=== PATIENT | male | born 1955 | race Caucasian/White ===

== ENCOUNTER 2023-05-09 15:29 | Outpatient (OUT) | payer BC, SELFPAY ==
[2023-05-09 16:31] LABS: Anion Gap 11.9; BUN Creatinine Ratio 24.1; Carbon Dioxide 28.9 mmol/L (21.0-32.0); Chloride 103 mmol/L (98-107); Estimated GFR (African America 51 (>=60); Estimated GFR (Non-African Ame 42 (>=60); Glucose 131 mg/dL (74-106); Potassium 3.8 mmol/L (3.5-5.1); Sodium 140 mmol/L (136-145)
== END 2023-05-09 15:30 | disposition home or self-care (01) ==
LOC: LAB 15:36
PROVIDERS: PCP Family Medicine; Visit Provider Internal Medicine Interventional Cardiology
DX: R60.9 Edema, unspecified (principal)
CPT/HCPCS: 36415; 80048

== ENCOUNTER 2023-06-01 08:59 | Outpatient (OUT) | payer BC, SELFPAY ==
--- NOTE | 2023-06-01 09:56 | US_ITS ---
[address] [address] Patient Name: LISA JURADO MRN: [id number] date: 1955 Sex: M Assigned Patient Location: CARD Current Patient Location: CARD Accession/Order Number: [id number] Exam Date: 06/01/2023 10:00 Report Date: 06/01/2023 15:24 At the request of: EDISON HOPPER Procedure: US carotid duplex BI EXAMINATION: US carotid duplex BI HISTORY: Stenosis Of Left Carotid Artery I65.22 COMPARISON: No relevant comparison available. TECHNIQUE: Duplex Doppler ultrasound analysis of carotid and vertebral arteries. . Bilateral carotid arterial duplex examination was performed using B-mode, color flow and spectral analysis. Carotid stenosis is reported according to validated velocity parameters, similar to NASCET criteria. FINDINGS: RIGHT CAROTID ARTERY Mild atherosclerotic plaque. 44% reduction in the bulb Subclavian: PSV: 55.6 cm/s cm/s EDV: 7.0 cm/s cm/s CCA: Prox: PSV: 57.8 cm/s cm/s EDV: 10.6 cm/s cm/s Mid: PSV: 66.6 cm/s cm/s EDV: 13.8 cm/s cm/s Distal: PSV: 47.6 cm/s cm/s EDV: 8.4 cm/s cm/s BULB: PSV: 39.8 cm/s cm/s EDV: 7.5 cm/s cm/s ICA: Prox: PSV: 128.6 cm/s cm/s EDV: 39.7 cm/s cm/s Mid: PSV: 102.7 cm/s cm/s EDV: 28.4 cm/s cm/s Distal: PSV: 46.8 cm/s cm/s EDV: 18.8 cm/s cm/s ECA: PSV: 102.7 cm/s cm/s EDV: 5.8 cm/s cm/s VERTEBRAL: PSV: 31.0 cm/s cm/s EDV: 13.2 cm/s cm/s ICA/CCA ratio: PSV: 2.7 EDV: 4.7 LEFT CAROTID ARTERY Mild atherosclerotic plaque. 60% area reduction in the proximal ICA Subclavian: PSV: 94.3 cm/s cm/s EDV: 7.9 cm/s CCA: Prox: PSV: 62.0 cm/s cm/s EDV: 10.2 cm/s Mid: PSV: 49.0 cm/s cm/s EDV: 15.4 cm/s Distal: PSV: 36.0 cm/s cm/s EDV: 6.8 cm/s BULB: PSV: 38.9 cm/s cm/s EDV: 11.1 cm/s ICA: Prox: PSV: 123.7 cm/s cm/s EDV: 41.3 cm/s Mid: PSV: 68.1 cm/s cm/s EDV: 16.3 cm/s Distal: PSV: 40.2 cm/s cm/s EDV: 14.9 cm/s ECA: PSV: 60.0 cm/s cm/s EDV: 6.2 cm/s VERTEBRAL: PSV: 39.1 cm/s cm/s EDV: 12.8 cm/s ICA/CCA ratio: PSV: 3.4 EDV: 6.1 US/US carotid duplex BI IMPRESSION: 0-49% flow stenosis right internal carotid artery 60% area reduction measured in the proximal left ICA Spectral Doppler US Thresholds (Reference: Mono EG, et al. Radiology 2000; 214:247-252) Stenosis (%) PSV (cm/sec) VICA/VCCA 0-49 <150 <2.5 50-69 150-225 2.5-4.0 >70 >225 >4.0 Electronically authenticated by: IFEANYI FREY Date: 06/01/2023 15:24
--- NOTE | 2023-06-01 10:57 | CA_ITS ---
Patient Name: LISA JURADO MR#: [id number] : 1955 Exam Date: 06/01/2023 Ordering Doctor: EDISON HOPPER [facility] ECHOCARDIOGRAM REPORT PROCEDURE: CARDIO PULMONARY ECHOCARDIO M/2D COMP INDICATIONS: Syncope and collapse, coronary artery disease, CABGx6, [place], hypertension, diabetes COMPARISON: None. DESCRIPTION: COMPLETE ECHOCARDIOGRAM Real-time transthoracic echocardiography with 2D, M-mode, spectral and color flow Doppler performed. QUALITY: Technical quality was adequate. LEFT VENTRICLE: Normal chamber size. Thickened septal wall. LV EF: Global left ventricular systolic function is difficult to assess but appears preserved; visually estimated ejection fraction is 55 to 60%. DIASTOLIC: Normal diastolic function. ATRIAL SEPTUM: Visually appears intact. LEFT ATRIUM: Moderate dilatation. RIGHT ATRIUM: Mild dilatation. RIGHT VENTRICLE: Normal chamber size. Normal right ventricular systolic function. TRICUSPID VALVE: Normal mobility and thickness. Mild regurgitation. Doppler studies reveal moderately (45-60) elevated right sided pressures. RVSP 46 mmHg MITRAL VALVE: Mildly thickened with normal mobility. No evidence of mitral valve stenosis. Trivial mitral regurgitation. AORTIC VALVE: Normal trileaflet appearance. Moderately calcified aortic valve. No evidence of aortic valve stenosis. No aortic regurgitation. AORTIC ROOT: Normal diameter and appearance. PULMONIC VALVE: Normal thickness and mobility. No stenosis. Mild regurgitation. PERICARDIUM: No evidence of pericardial effusion. IVC: IVC is dilated (2.6 cm) with no collapse. CONCLUSION: 1. Normal left ventricular systolic function is difficult to assess but appears preserved; visually estimated ejection fraction is 55 to 60% 2. The right ventricle is normal in size and systolic function 3. Biatrial enlargement 4. Normal diastolic function 5. Mild tricuspid regurgitation; moderately elevated right ventricular systolic pressure 6. Mild pulmonic regurgitation Adult Echocardiography Procedure Report Left Ventricle LVEDD (3.7 - 5.6 cm): 5.42 cm LVESD (2.2 - 4.0 cm): 3.07 cm LVIVS thickness (0.6 - 1.2 cm): 1.68 cm LVPW thickness (0.5 - 1.0 cm): 0.94 cm e': 0.11 m/s E - e': 4.15 LVOT Max Gradient: 2.23 mm[Hg], 2.15 mm[Hg] LVOT Area (cm2): 0.73 m/s, 0.75 m/s Peak Velocity (LVOT): 0.73 m/s, 0.75 m/s Mean Velocity (LVOT): 0.51 m/s LVOT Diameter 2.58 cm Left Atrium LA Volume Index (2D A2C): 49.37 ml/m2 Left Atrium Systolic Dimension: 4.34 cm Mitral Valve MV E to A Ratio: 0.80 Mitral Valve A-Wave Peak Velocity: 0.59 m/s Mitral Valve E-Wave Peak Velocity: 0.48 m/s Right Ventricle Aorta AO Root Diam: 3.70 cm Ascending Ao Diam: 3.29 cm Aortic Valve AoV Area (Peak Josh): 3.21 cm2, 3.29 cm2, 3.28 cm2, 3.36 cm2 AoV Area (VTI): 4.01 cm2, 4.34 cm2 Peak Velocity(Antegrade Flow): 1.16 m/s, 1.19 m/s, 1.22 m/s Peak Gradient(Antegrade Flow): 5.42 mm[Hg], 5.69 mm[Hg], 5.93 mm[Hg] Mean Velocity(Antegrade Flow): 0.89 m/s, 0.80 m/s, 0.95 m/s Mean Gradient(Antegrade Flow): 3.41 mm[Hg], 3.07 mm[Hg], 3.82 mm[Hg] Velocity Time Integral: 20.72 cm, 22.83 cm, 23.74 cm Tricuspid Valve Peak Velocity (Regurgitant Flow): 2.59 m/s, 2.80 m/s Pulmonic Valve Peak Velocity: 0.76 m/s Peak Gradient: 2.90 mm[Hg], 1.79 mm[Hg] Right Atrium Right Atrium Systolic Pressure: 61.07 ml, 61.07 ml Dictated by: Judi Wilson M.D. on 06/02/2023 at 14:35 Approved by: Judi Wilson M.D. on 06/02/2023 at 14:39
== END 2023-06-01 09:00 | disposition home or self-care (01) ==
LOC: CARD 08:59
PROVIDERS: PCP Family Medicine; Visit Provider Nurse Practitioner Family
DX: I65.22 Occlusion and stenosis of left carotid artery (principal); R55 Syncope and collapse; I25.10 Atherosclerotic heart disease of native coronary artery without angina pectoris
CPT/HCPCS: 93306; 93880

== ENCOUNTER 2023-06-19 11:08 | Outpatient (OUT) | payer BC, SELFPAY ==
[2023-06-19 11:49] LABS: Chol HDL Ratio 3.8; Cholesterol 163 mg/dL (<=200); HDL Cholesterol 43 mg/dL (40-60); Triglycerides 219 mg/dL (<=150); VLDL CHOLESTEROL 43.8 mg/dL
== END 2023-06-19 11:09 | disposition home or self-care (01) ==
LOC: LAB 11:09
PROVIDERS: PCP Family Medicine; Visit Provider Nurse Practitioner Family
DX: E78.5 Hyperlipidemia, unspecified (principal)
CPT/HCPCS: 36415; 80061

== ENCOUNTER 2024-02-12 10:30 | Outpatient (OUT) | payer BC, SELFPAY ==
[2024-02-12 10:47] LABS: Basophils Absolute Auto 0.1 10^3/uL (0.0-0.1); Eosinophils Absolute Auto 0.2 10^3/uL (0.0-0.7); Hematocrit 44.5 % (42.0-54.0); Hemoglobin 14.8 g/dL (14.0-18.0); Immature Granulocytes Abs Auto 0.03 10^3/uL (0.00-0.03); Immature Granulocytes Pct Auto 0.4 % (0.0-0.5); Lymphocytes Absolute Auto 1.5 10^3/uL (1.2-3.8); Lymphocytes Percent Auto 17.7 % (20.5-60.0); Mean Corpuscular HGB Conc 33.3 g/dL (29.9-35.2); Mean Corpuscular Hemoglobin 30.5 pg (25.9-34.0); Mean Corpuscular Volume 91.8 fL (80.0-94.0); Mean Platelet Volume 11.2 fL (9.5-13.5); Monocytes Absolute Auto 0.9 10^3/uL (0.3-0.8); Neutrophils Absolute Auto 5.6 10^3/uL (1.4-6.5); Neutrophils Percent Auto 67.9 % (43.0-75.0); Platelet Count 208 10^3/uL (150-450); Red Blood Count 4.85 10^6/uL (4.70-6.10); Red Cell Distribution Width 14.5 % (11.0-15.0); White Blood Count 8.2 10^3/uL (4.0-11.0)
--- OUTSIDE RECORDS SUMMARY | 2024-02-12 10:54 | XMS_ITS | CCD ---
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 Name Role Phone PHYSICIAN, DEFAULT Unavailable Unavailable PHYSICIAN, DEFAULT Unavailable Unavailable NAHUN JACKSON Unavailable Unavailable [place], Surya Jo Unavailable Unavailable Unavailable FIORELLA BRONSON Consulting Unavailable REINECK, DR AMENA Enciso Admitting Unavailabl e REINECK, DR AMENA Enciso Attending Unavailabl e PRO, DR PALMER Primary Care Unavailable NEFCY, CARLOS ALBERTO Consulting Unavailable PRO, DR PALMER Admitting Unavailable PRO, DR PALMER Attending Unavailable PRO, DR PALMER Consulting Unavailable PRO, DR PALMER Primary Care Unavailable ELTAHAWY, DR GAYTAN Consulting Unavailable ELTAHAWY, DR GAYTAN Admitting Unavailable ELTAHAWY, DR GAYTAN Attending Unavailable PRO, DR PALMER Primary Care Unavailable ELTAHAWY, DR GAYTAN Consulting Unavailable ELTAHAWY, DR GAYTAN Admitting Unavailable ELTAHAWY, DR GAYTAN Attending Unavailable PRO, DR PALMER Primary Care Unavailable ELTAHAWY, DR GAYTAN Attending Unavailable ELTAHAWY, DR GAYTAN Consulting Unavailable ELTAHAWY, DR GAYTAN Admitting Unavailable PRO, DR PALMER Primary Care Unavailable PRO, DR PALMER Primary Care Unavailable MISC, DR COHEN Admitting Unavailable MISC, DR COHEN Attending Unavailable MISC, DR COHEN Consulting Unavailable PRO, DR PALMER Primary Care Unavailable MISC, DR COHEN Admitting Unavailable MISC, DR COHEN Attending Unavailable MISC, DR COHEN Consulting Unavailable Leidy Jamison Unavailable Surya Mast MD Unavailable Surya Mast MD Primary Care Provider [phone] MD Surya Mast Primary Care Provider MD Jagdeep Stiles II Attending Provider MD Surya Mast Primary Care Provider [phone] MD Jagdeep Stiles II Attending Provider [phone] MD Davide Ocampo Attending Provider [phone] Davide Ocampo Admitting Unavailable Davide Ocampo Attending Unavailable Surya Mast Primary Care Unavailable Jagdeep Stiles II Admitting UnavailJagdeep Gong II Attending Unavailabl e Surya Mast Primary Care Unavailable IFEANYI JUSTICE Attending Unavailable PANDA, JASON Jo Referring Unavailable PRO, SURYA Jo Attending Unavailable PANDA, JASON Jo Attending Unavailable DAVIDE SUN Attending Unavailable SURYA MAST Referring Unavailable DAVIDE SUN Attending Unavailable PRO, SURYA Jo Attending Unavailable PANDA, JASON M Attending Unavailable PANDA, JASON M Attending Unavailable PANDA, JASON M Attending Unavailable PANDA, JASON M Attending Unavailable PANDA, JASON M Attending Unavailable PANDA, JASON M Attending Unavailable PANDA, JASON M Attending Unavailable PANDA, JASON M Attending Unavailable PANDA, JASON M Attending Unavailable IFEANYI JUSTICE Attending Unavailable PANDA, JASON M Referring Unavailable JUDI WILSON Attending Unavailable EDSION HOPPER Attending Unavailable JUDI WILSON Attending Unavailable Medications Current Medications Medication Drug Class(es) Dates Sig (Normalized) Sig (Original) [id number] actuat albuterol 0.09 mg/actuat metered dose inhaler (2 sources) beta2-Adrenergic Agonist Start: 06-14-2017 take 2 puff(s) by inhalation every four hours as needed Albuterol Sulfate HFA 108 (90 Base) MCG/ACT 2 puffs as needed Inhalation every 4 hrs May, Active amLODIPine 10 mg oral tablet (2 sources) Dihydropyridine Calcium Channel Yenni take 1 tablet by mouth every twenty-four hours amLODIPine Besylate 10 MG 1 tablet Orally Once a day Active amoxicillin 875 mg / clavulanate 125 mg oral tablet (2 sources) Penicillin-class Antibacterial Start: 08-29-2023 End: 09-08-2023 take 1 tablet by mouth in the morning amoxicillin-clav ulanate (Augmentin) 875-125 MG tablet Indications: Bronchitis Take 1 tablet (875 mg) by mouth in the morning and 1 tablet (875 mg) before bedtime. Do all this for 10 days. 20 tablet 0 08/29/2023 09/08/2023 Active Aspir-81 81 MG (2 sources) take 1 tablet by mouth once daily Aspir-81 81 MG 1 tablet Orally Once a day Active aspirin 81 mg delayed release oral tablet (10 sources) Platelet Aggregation Inhibitor, Nonsteroidal Anti-inflammatory Drug Start: 08-31-2023 take 81 mg by mouth once daily Aspirin Active 81 MG PO Daily August 31, 2023 1:00am ASPIRIN 81 MG ch ewable tablet Oral 0 Active take 1 tablet by mouth once rafael y Aspirin EC 81 MG Oral Tablet Delayed Release TAKE 1 TABLET DAILY DIRECTED. Quantity: 0 Refills: 0 Ordered: 28-May-2021 DO Active atorvastatin 80 mg oral tablet (12 sources) HMG-CoA Reductase Inhibitor Start: 08-31-2023 take 80 mg by mouth once daily Atorvastatin Active 80 MG PO Daily August 31, 2023 1:00am Start: 07-31-2023 take 1 tablet by nadja th in the morning atorvastatin (Lipitor) 80 MG tablet Indications: Atherosclerosis of nez perce coronary artery with angina pectoris, unspecified whether nez perce or transplanted heart (CMS/[facility]) TAKE 1 TABLET BY MOUTH IN THE MORNING 100 tablet 3 07/31/2023 Active Start: 10-02-2019 take 1 tablet by nadja th once daily Atorvastatin Calcium 80 MG Oral Tablet TAKE 1 TABLET DAILY. Quantity: 0 Refills: 0 Ordered: 20-Jun-2020 DO Start : 02-Oct-2019 Active Atorvastatin Jeferson cium Active carvedilol 25 mg oral tablet (6 sources) alpha-Adrenergic Yenni, beta-Adrenergic Yenni Start: 08-31-2023 take 25 mg by mouth twice daily at mealtime Carvedilol Active 25 MG PO Twice daily August 31, 2023 1:00am must administer with a meal/food take 1 tablet by mouth in the mo rning carvedilol (Coreg) 25 MG tablet Take 25 mg by mouth in the morning and 25 mg before bedtime. 0 Active cloNIDine hydrochloride 0.2 mg oral tablet (10 sources) Central alpha-2 Adrenergic Agonist Start: 08-31-2023 take 0.2 mg by mouth twice daily Clonidine Hcl Active 0.2 MG PO Twice daily August 31, 2023 1:00am Start: 08-31-2023 take 0.2 mg by mouth once daily at bedtime Clonidine Hcl Active 0.2 MG PO Daily at bedtime August 31, 2023 12:00am Start: 02-16-2023 End: 02-11-2024 take 1.5 tablets by mouth in the morning cloNIDine (Catapres) 0.2 MG tablet Indications: Hypertension secondary to other renal disorders (CMS/HCC) Take 1.5 tablets (0.3 mg) by mouth in the morning and 1.5 tablets (0.3 mg) before bedtime. 270 tablet 3 02/16/2023 02/11/2024 Active Start: 06-18-2021 take 1 tablet by nadja th once daily cloNIDine HCl - 0.1 MG Oral Tablet Take 1 tablet daily Quantity: 90 Refills: 3 Ordered: 18-Jun-2021 Juanito Peterson MD Start : 18-Jun-2021 Active dose decreased; stop clonidoine .2 mg Start: 05-25-2021 take 1 tablet by nadja th once daily cloNIDine HCl - 0.2 MG Oral Tablet TAKE 1 TABLET DAILY. Quantity: 0 Refills: 0 Ordered: 26-May-2021 DO Start : 25-May-2021 Active dapagliflozin 10 mg oral tablet (10 sources) Sodium-Glucose Cotransporter 2 Inhibitor Start: 08-31-2023 take 1 tablet by mouth once daily Dapagliflozin Propanediol (Farxiga) 10 mg tablet Active 10 MG PO Daily August 31, 2023 1:00am Start: 03-10-2023 take 1 tablet by nadja th in the morning dapagliflozin (Farxiga) 10 MG Indications: Coronary artery disease without angina pectoris, unspecified vessel or lesion type, unspecified whether nez perce or transplanted heart (CMS/HCC) Take 1 tablet (10 mg) by mouth in the morning. 100 tablet 3 03/10/2023 Active Start: 08-15-2019 take 1 tablet by nadja th once daily in the morning Farxiga 10 MG Oral Tablet TAKE 1 TABLET BY MOUTH EVERY MORNING Quantity: 0 Refills: 0 Ordered: 20-Jun-2020 DO Start : 15-Aug-2019 Active diclofenac sodium 0.01 mg/mg topical gel (2 sources) Nonsteroidal Anti-inflammatory Drug Start: 08-31-2023 Diclofenac Sodium Active 2 GM TOPICAL as directed 08 15August 31, 2023 1:00am doxycycline monohydrate 100 mg oral capsule (2 sources) Tetracycline-class Drug Start: 06-14-2017 take 1 capsule by mouth every twelve hours Doxycycline Monohydrate 100 MG 1 capsule Orally every 12 hrs for 7 days May, Active fluticasone propionate 0.05 mg/actuat metered dose nasal spray (2 sources) Corticosteroid Start: 06-14-2017 take 1 spray(s) nasal route once daily Fluticasone Propionate 50 MCG/ACT 1 spray in each nostril Nasally Once a day for 21 days May, Active furosemide 40 mg oral tablet (3 sources) Loop Diuretic Start: 04-19-2023 End: 04-18-2024 furosemide (Lasix) 40 MG tablet Take 20 mg by mouth in the morning. 0 04/19/2023 08/29/2023 Discontinued (Other) 24 hr isosorbide mononitrate 60 mg extended release oral tablet (12 sources) Nitrate Vasodilator Start: 08-31-2023 take 60 mg by mouth once daily Isosorbide Mononitrate Active 60 MG PO Daily August 31, 2023 1:00am Start: 04-19-2023 take 1 tablet by nadja th once daily in the morning isosorbide mononitrate ER (Imdur) 60 MG 24 hr tablet Indications: Secondary hypertension (CMS/HCC) TAKE 1 TABLET BY MOUTH ONCE DAILY IN THE MORNING 100 tablet 3 04/19/2023 Active Start: 09-10-2019 take 1 tablet by nadja th once daily Isosorbide Mononitrate ER 60 MG Oral Tablet Extended Release 24 Hour TAKE 1 TABLET DAILY DIRECTED. Quantity: 0 Refills: 0 Ordered: 17-Jun-2020 DO Start : 10-Sep-2019 Active Isosorbide [place] itrate ER Active lisinopril 40 mg oral tablet (12 sources) Angiotensin Converting Enzyme Inhibitor Start: 08-31-2023 take 40 mg by mouth once daily Lisinopril Active 40 MG PO Daily August 31, 2023 1:00am Start: 02-15-2023 take 1 tablet by nadja th once daily lisinopril 40 MG tablet Indications: Primary hypertension (CMS/HCC) Take 1 tablet by mouth once daily 90 tablet 3 02/15/2023 Active Start: 10-02-2019 take 1 tablet by nadja th once daily Lisinopril 40 MG Oral Tablet TAKE 1 TABLET DAILY. Quantity: 0 Refills: 0 Ordered: 20-Jun-2020 DO Start : 02-Oct-2019 Active Lisinopril Activ e methylPREDNISolone (2 sources) Corticosteroid Start: 08-29-2023 End: 09-05-2023 methylPREDNISolone (Medrol Dospak) 4 MG tablets Indications: Bronchitis Follow schedule on package instructions 21 tablet 0 08/29/2023 09/05/2023 Active semaglutide 3 mg oral tablet (3 sources) take 1 tablet by mouth before mealtime semaglutide (Rybelsus) 3 MG tablet Take 3 mg by mouth in the morning. Take before meals. 0 Active Semaglutide (3 sources) Start: 08-31-2023 take 3 mg by mouth once daily Semaglutide Active 3 MG PO Daily August 31, 2023 1:00am Start: 08-31-2023 take 3 mg by mouth once daily Semaglutide Active 3 MG PO Daily August 31, 2023 12:00am spironolactone 25 mg oral tablet (10 sources) Aldosterone Antagonist Start: 08-31-2023 take 25 mg by mouth once daily Spironolactone Active 25 MG PO Daily August 31, 2023 1:00am Start: 05-28-2021 take 1 tablet by nadja th once daily Spironolactone 25 MG Oral Tablet TAKE 1 TABLET DAILY. Quantity: 90 Refills: 3 Ordered: 28-May-2021 Juanito Peterson MD Start : 28-May-2021 Active new terazosin 2 mg oral capsule (10 sources) alpha-Adrenergic Yenni Start: 08-31-2023 take 2 mg by mouth once daily Terazosin Active 2 MG PO Daily August 31, 2023 1:00am Start: 02-16-2023 End: 02-11-2024 take 3 capsules by mouth at bedtime terazosin (Hytrin) 2 MG capsule Indications: Benign prostatic hyperplasia without lower urinary tract symptoms Take 3 capsules (6 mg) by mouth at bedtime. 270 capsule 3 02/16/2023 02/11/2024 Active Start: 12-16-2019 take 1 capsule by mo [facility] once daily at bedtime Terazosin HCl - 1 MG Oral Capsule TAKE 1 CAPSULE AT BEDTIME NIGHTLY. Quantity: 0 Refills: 0 Ordered: 17-Jul-2020 DO Start : 16-Dec-2019 Active Completed/Discontinued Medications Medication Drug Class(es) Dates Sig (Normalized) Sig (Original) Augmentin Tablets 875 MG (2 sources) Start: 09-15-2014 Augmentin Tablets 875 MG Take as directed By Mouth bid for 10 days Sep, Not-Taking/PRN clopidogrel 75 mg oral tablet (6 sources) P2Y12 Platelet Inhibitor Start: 02-21-2020 take 1 tablet by mouth once daily Clopidogrel Bisulfate 75 MG Oral Tablet TAKE 1 TABLET DAILY. Quantity: 90 Refills: 3 Ordered: 20-Jun-2020 DO Start : 21-Feb-2020 Active Clopidogrel Bisu lfate Active hydroCHLOROthiazide 50 mg oral tablet (4 sources) Thiazide Diuretic Start: 05-25-2021 take 1 tablet by mouth once daily hydroCHLOROthiazide 50 MG Oral Tablet TAKE 1 TABLET DAILY. Quantity: 0 Refills: 0 Ordered: 26-May-2021 DO Start : 25-May-2021 Active ibuprofen 800 mg oral tablet (2 sources) Nonsteroidal Anti-inflammator y Drug take 1 tablet by mouth every eight hours Ibuprofen 800 MG 1 tablet Orally Three times a day Not-Taking/PRN krill oil (2 sources) Krill Oil Orally Not-Taking/PRN labetalol hydrochloride 300 mg oral tablet (6 sources) beta-Adrenergic Yenni Start: 10-02-2019 take 1 tablet by mouth once daily Labetalol HCl - 300 MG Oral Tablet TAKE 1 TABLET EVERY 12 HOURS DAILY. Quantity: 0 Refills: 0 Ordered: 20-Jun-2020 DO Start : 02-Oct-2019 Active Labetalol HCl Ac tive metFORMIN hydrochloride 1000 mg oral tablet (9 sources) Biguanide Start: 05-11-2021 take 1 tablet by mouth once daily metFORMIN HCl - 1000 MG Oral Tablet TAKE 1 TABLET EVERY 12 HOURS DAILY. Quantity: 0 Refills: 0 Ordered: 13-May-2021 DO Start : 11-May-2021 Active End: 08-29-2023 metFORMIN (Glucophage) 500 M G tablet every 12 (twelve) hours. 0 08/29/2023 Discontinued (Ineffective) metFORMIN HCl Ac tive metoprolol tartrate 100 mg oral tablet (2 sources) beta-Adrenergic Yenni Metoprolol Succinate 100 MG Orally Not-Taking/PRN predniSONE 20 mg oral tablet (2 sources) Start: 017 predniSONE 20 MG 1 tablet twice daily x 2 days then 1 tablet daily x 2 days Orally as directed for 4 days May, Not-Taking/PRN ProAir HFA 108 (90 Base) MCG/ACT (2 sources) Start: 015 take 2 puff(s) by inhalation every six hours as needed ProAir HFA 108 (90 Base) MCG/ACT 2 puffs as needed Inhalation every 6 hrs, if needed for 30 day(s) Sep, Not-Taking/PRN SITagliptin 100 mg oral tablet (6 sources) Dipeptidyl Peptidase 4 Inhibitor Start: 020 take 1 tablet by mouth once daily Januvia 100 MG Oral Tablet TAKE 1 TABLET ONCE DAILY. Quantity: 0 Refills: 0 Ordered: 20-Jun-2020 DO Start : 16-Dec-2019 Active Januvia Active Problems Active Problems Problem Classification Problem Date Documented Da te Episodic/Chronic Acute myocardial infarction (3 sources) Myocardial infarction; Translations: [Non-ST elevation (NSTEMI) myocardial infarction] Onset: 6 02-16-2023 Chronic Chronic kidney disease (4 sources) Chronic kidney disease; Translations: [CHRONIC KIDNEY DISEASE STAGE 3B] Onset: 2 Chronic obstructive pulmonary disease and bronchiectasis (4 sources) Bronchitis; Translations: [Bronchitis] 08-29-2023 Episodic Complication of device; implant or graft (3 sources) 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; Translations: [Atherosclerosis of coronary artery bypass graft(s) without angina pectoris] Onset: 3 02-14-2023 Chronic Coronary atherosclerosis and other heart disease (10 sources) Coronary arteriosclerosis; Translations: [Coronary atherosclerosis of unspecified type of vessel, nez perce or graft] Onset: 2 02-14-2023 Chronic Diabetes mellitus with complications (6 sources) Disorder of kidney due to diabetes mellitus; Translations: [Type 2 diabetes mellitus with diabetic nephropathy] Onset: 3 02-14-2023 Chronic Diabetes mellitus without complication (11 sources) Type 2 diabetes mellitus; Translations: [Diabetes mellitus without mention of complication, type II or unspecified type, not stated as uncontrolled] Onset: 2 02-14-2023 Chronic Disorders of lipid metabolism (7 sources) Hyperlipidemia; Translations: [Other and unspecified hyperlipidemia] Onset: 6 02-16-2023 Chronic Esophageal disorders (3 sources) Gastroesophageal reflux disease without esophagitis; Translations: [Gastro-esophageal reflux disease without esophagitis] Onset: 6 02-16-2023 Chronic Essential hypertension (13 sources) Benign essential hypertension; Translations: [Benign essential hypertension] Onset: 2 Chronic Hyperplasia of prostate (3 sources) Benign prostatic hyperplasia; Translations: [Benign prostatic hyperplasia without lower urinary tract symptoms] Onset: 3 02-14-2023 Chronic Hypertension with complications and secondary hypertension (5 sources) Renal hypertension; Translations: [Hypertension secondary to other renal disorders] Onset: 3 02-16-2023 Chronic Influenza (4 sources) Influenza due to other identified influenza virus with other respiratory manifestations; Translations: [Influenza] Onset: 4 Episodic Occlusion or stenosis of precerebral arteries (2 sources) Occlusion and stenosis of left carotid artery; Translations: [Occlusion and stenosis of left carotid artery] Onset: 3 Chronic Open wounds of head; neck; and trunk (3 sources) Laceration of mouth; Translations: [Laceration without foreign body of oral cavity, initial encounter] 06-28-2023 Episodic Osteoarthritis (9 sources) Primary gonarthrosis, bilateral; Translations: [Bilateral primary osteoarthritis of knee] Onset: 6 02-16-2023 Chronic Other circulatory disease (3 sources) Elevated blood pressure; Translations: [Elevated blood-pressure reading, without diagnosis of hypertension] 06-28-2023 Episodic Other gastrointestinal disorders (1 source) Other fecal abnormalities; Translations: [Other fecal abnormalities] Onset: 4 Episodic Other infections; including parasitic (3 sources) Late effects of other and unspecified infectious and parasitic diseases; 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] Onset: 3 02-14-2023 Chronic Other infections; including parasitic (3 sources) Sequelae of infectious disease; Translations: [Sequelae of other specified infectious and parasitic diseases] Onset: 2 02-16-2023 Chronic Other lower respiratory disease (2 sources) Cough; Translations: [Cough] Episodic Other lower respiratory disease (2 sources) Dyspnea; Translations: [Dyspnea] Episodic Other non-traumatic joint disorders (3 sources) Pain in right knee; Translations: [Pain in joint, lower leg] 08-31-2023 Episodic Other nutritional; endocrine; and metabolic disorders (4 sources) Obesity; Translations: [Obesity, unspecified] Chronic Other nutritional; endocrine; and metabolic disorders (3 sources) Hypomagnesemia; Translations: [Hypomagnesemia] Onset: 3 02-14-2023 Chronic Otitis media and related conditions (2 sources) Non-suppurative otitis media; Translations: [Unspecified nonsuppurative otitis media, left ear] 08-29-2023 Episodic Screening and history of mental health and substance abuse codes (4 sources) Ex-smoker; Translations: [Personal history of tobacco use] Episodic Comment on above: Quit 43 years ago; Skull and face fractures (3 sources) Fracture of maxilla; Translations: [Maxillary fracture, unspecified side, initial encounter for closed fracture] 06-28-2023 Episodic Unclassified (3 sources) CHRN KIDNEY DISEASE STG 3 UNSP; Translations: [CHRN KIDNEY DISEASE STG 3 UNSP] Onset: 3 Unclassified (1 source) Pain in right knee; Translations: [Pain in right knee] Onset: 4 Unclassified (1 source) Resistant hypertension; Translations: [Resistant hypertension] Onset: 2 Past or Other Problems Problem Classification Problem Date Documented Da te Episodic/Chronic Nonspecific chest pain (5 sources) Chest pain, unspecified; Translations: [CHEST PAIN UNSPECIFIED] Onset: 01-31-2022 Episodic Other aftercare (1 source) 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; Translations: [OTH K9 HANDLER CURRENT DRUG THERAPY] Onset: 01-31-2022 Episodic Other aftercare (1 source) long term (current) use of aspirin; Translations: [LONG-TERM CURRENT USE OF ASPIRIN] Onset: 01-31-2022 Episodic Other connective tissue disease (3 sources) Muscle weakness; Translations: [Muscle weakness (generalized)] Onset: 06-08-2016 02-16-2023 Episodic Other injuries and conditions due to external causes (1 source) Underdosing of loop [high-ceiling] diuretics, initial encounter; Translations: [UNDERDOS LOOP HI-CEIL DIURETIC INIT] Onset: 01-31-2022 Episodic Other injuries and conditions due to external causes (1 source) Underdosing of coronary vasodilators, initial encounter; Translations: [UNDRDOS COR VASODILATORS INIT ENC] Onset: 01-31-2022 Episodic Other non-traumatic joint disorders (10 sources) Pain in left knee; Translations: [Left knee pain] Onset: 08-31-2023 08-28-2023 Episodic Residual codes; unclassified (1 source) Patient's intentional underdosing of medication regimen for other reason; Translations: [PT INTENT UNDERDOS MED OTH REASON] Onset: 01-31-2022 Episodic Syncope (2 sources) Syncope and collapse; Translations: [Syncope and collapse] Onset: 05-10-2023 Episodic Unclassified (1 source) CHRN KIDNEY DISEASE STG 3 UNSP; Translations: [CHRN KIDNEY DISEASE STG 3 UNSP] Onset: 09-08-2022 Unclassified (1 source) Contact with and (suspected) exposure to covid-19 Z20.822 Unclassified (1 source) Resistant hypertension; Translations: [Resistant hypertension] Onset: 04-19-2023 Results Test Name Value Interpretation Reference Range Facility Office Visiton 02-01-2024 Follow-up visit [id number] Viri [address]ado rd L Sr. 1955 M Date Provider Department Center 02/01/2024 [facility] Family History Problem Relation Age of Onset Coronary artery disease Mother Coronary artery disease Father Coronary artery disease Brother ALS Brother Stroke Brother Family Status - Relation Status Age at Mother Father Brother Level of Service:15786 [place] OFFICE/OUTPATIENT ESTABLISHED MOD MDM 30 MIN Normal [facility] Glucose Glucometer (BldC) [M ass/Vol]Ordered By: Davide Ocampo on 10-30-2023 Glucose [Mass/Vol] 168 mg/dL [facility] Comment on above: Random Glucose Refer ence Range is dependent on time and content of last meal. Glucose of more than 200 mg/dL in a nonstressed, ambulatory subject supports the diagnosis of Diabetes Mellitus. Glucose Poct Glucometerson 0 10-30-2023 Commemt1 Glu2: Cleaned Meter Normal [facility] Comment on above: Result Comment: PERF ORMED BY: [facility] [place] [address] PATHOLOGIST PRODUCTION LABORER HENOK YANEZ M.D. Performed By: #### G LULS #### Point of Care testing , Glucose [Mass/Vol] 168 mg/dL Normal [facility] Comment on above: Result Comment: [place] Glucose Reference Range is dependent on time and content of last meal. Glucose of more than 200 mg/dL in a nonstressed, ambulatory subject supports the diagnosis of Diabetes Mellitus. Performed By: #### G LULS #### Point of Care testing , Ck 10-30-2023 L Specimen: Received: 10/30/23 Status: ROSALINDA Keane Num: [id number] Spec Type: Surgical Subm Dr: Davide Ocampo MD Tissues: A Colon Biopsy (POLYP AT 20 CM) Procedures: HE/2, Gross/Micro L4 Age/ Patient Sex Location Account Attending Physician Tawanda Jurado 68/M [place] [id number] Davide Ocampo MD SPEC NUM: [id number] RECD: 10/30/23 STATUS: ROSALINDA KEANE NUM: [id number] IZAIAH: 10/30/[address]: Davide Ocampo MD ENTERED: 10/30/[address] [facility] DR: SPEC TYPE: Surgical DEPT: S ORDERED: HE/2, Gross/Micro L4 ORDERED: HE/2, Gross/Micro L4 Pathological Diagnosis Colon polyp biopsy at 20 cm: -Small tubular adenoma, removed Gross Description In formalin labeled polyp at 20 cm is one 0.6 x 0.4 x 0.2 cm piece of samuel-pink mucosa. Submitted entirely in A1. RG/CYC Clinical history: Positive Cologuard CPT Codes 62915 ---- ---- Specimen: [id number] Received: 10/30/23 Status: ROSALINDA Keane Num: [id number] Spec Type: Surgical Subm Dr: Davide Ocampo MD Tissues: A Colon Biopsy (POLYP AT 20 CM) Procedures: HE/2, Gross/Micro L4 ---- Patient: Tawanda Jurado SR [id number] (Continued) ---- Signed (signature on file) Tameka Lacey MD 11/01/23 1250 Normal [facility] No Panel InformationOrdered By: Davide Ocampo on 10-30-2023 Bedside Glucose Comment Glu2: cleaned meter [facility] XR knee BI 4Von 08-31-2023 XR knee BI 4V [address] [address] XRay Report Signed Patient: Tawanda Jurado SR MR#: [id number] : 1955 Acct:[id number] Age/Sex: 68 / M ADM Date: 08/31/23 [place] [facility] [place] Type[place] [facility] Attending Dr: Jagdeep Stiles II, MD Copies to: Jagdeep Stiles MD Ordering Provider: Jagdeep Stiles MD Date of Service: 08/31/23 XR/XR pelvis 1-2V: M25.562 - Pain in left knee ([id number]) XR/XR knee BI 4V: M25.561 - Pain in right knee AP PELVIS: Bilateral knee series 4 views each. CLINICAL HISTORY: Bilateral knee pain for months. COMPARISON: None Pelvis: Mild degenerative changes of both hips without acute bony process. Additional degenerative changes seen involving the visualized lower lumbar spine, SI joints and pubic symphysis. Bilateral knee series: Mild degenerative changes of both knees with medial weightbearing joint space narrowing. No acute bony process. Small knee joint effusions. XR/XR pelvis 1-2V IMPRESSION: MILD DEGENERATIVE CHANGES OF BOTH HIPS WITHOUT ACUTE BONY PROCESS. MODERATE DEGENERATIVE CHANGES OF BOTH KNEES WITHOUT ACUTE BONY PROCESS. Impression dictated by: Godwin Martin Jr., D.O.08/31/2023 3:26 PM Dictation Location: [place] [address] Transcribed By: [facility] 08/31/23 1526 Dictated By: Godwin Martin Jr, DO 08/31/23 1524 Signed By: 08/31/23 1526 Normal [facility] COVID/FLU/RSV RT-PCRon 08-02 SARS-CoV-2 (COVID-19) RNA ANGÉLICA+probe Ql (Unsp spec) Negative [facility] Other COVID/FLU/RSV RT-PCR Positive [facility] Other COVID/FLU/RSV RT-PCR Negative [facility] Other 36on 06-21-2023 36 Please let him know his event monitor was normal. His syncopal episode was likely secondary to a drop in his blood pressure also known as orthostatic hypotension. He needs to slowly change positions. Recommend he wear compression stockings while awake. He also needs to do routine exercising. For his BP, recommend we increase his carvedilol to 37.5mg BID (1.5 tabs of his 25mg rx). No indication to keep him off of work at this time. Follow-up in 1 month with me or Dr. Wilson. Thanks [facility] 36 Depends on the findings from his event monitor. Can we see if we can obtain a pre-limary report from his event monitor? [facility] Telephoneon 06-20-[id number] L Sr. 1955 M [facility] Provider Department Center 06/20/2023 JUS MAYERS Family History Problem Relation Age of Onset Coronary artery disease Mother Coronary artery disease Father Coronary artery disease Brother ALS Brother Stroke Brother Family Status - Relation Status Age at Mother Father Brother [facility] Orders Onlyon 06-15-2023 Orders Only [id number] Viri Jurado rd L Sr. 1955 [facility] Provider Department Center 06/15/2023 JUS MAYERS Family History Problem Relation Age of Onset Coronary artery disease Mother Coronary artery disease Father Coronary artery disease Brother ALS Brother Stroke Brother Family Status - Relation Status Age at Mother Father Brother [facility] 36on 06-12-2023 36 Please let him know his carotid US showed moderate narrowing in his left carotid, mild narrowing on the right. This would not cause his syncope. Continue medication management for this with ASA and atorvastatin. If he has not had a recent lipid panel done recommend he has one so we can optimize his cholesterol medications. Thanks [facility] Telephoneon 06-12-[id number] L Sr. 1955 [facility] Provider Department Center 06/12/2023 EDISON COLE Family History Problem Relation Age of Onset Coronary artery disease Mother Coronary artery disease Father Coronary artery disease Brother ALS Brother Stroke Brother Family Status - Relation Status Age at Mother Father Brother [facility] Office Visiton 05-10-2023 Follow-up visit [id number] Joe Juradojordan lozoya L Sr. 1955 M Date Provider Department Center 05/10/2023 EDISON COLE CARD [facility] Family History Problem Relation Age of Onset Coronary artery disease Mother Coronary artery disease Father Coronary artery disease Brother ALS Brother Stroke Brother Family Status - Relation Status Age at Mother Father Brother Level of Service:04872 [place] OFFICE/OUTPATIENT ESTABLISHED MOD MDM 30-39 MIN Normal [facility] Office Visiton 04-19-2023 Follow-up visit [id number] Viri Jurado darell L Sr. 1955 M Date Provider Department Center 04/19/2023 JUDI MILLER CARD [facility] Family History Problem Relation Age of Onset Coronary artery disease Mother Coronary artery disease Father Coronary artery disease Brother ALS Brother Stroke Brother Family Status - Relation Status Age at Mother Father Brother Level of Service:21605 [place] OFFICE/OUTPATIENT ESTABLISHED MOD MDM 30-39 MIN Normal [facility] Orders Onlyon 04-19-2023 Orders Only [id number] JonnyViri lozoya L Sr. 1955 M Date Provider Department Center 04/19/2023 JUS MAYERS P[facility]RO [facility] Family History Problem Relation Age of Onset Coronary artery disease Mother Coronary artery disease Father Coronary artery disease Brother ALS Brother Stroke Brother Family Status - Relation Status Age at Mother Father Brother Normal [facility] ALBUMINon 09-08-2022 Albumin [Mass/Vol] 3.7 g/dL Normal 3.4-5.0 [facility] Comment on above: Performed By: #### P HOS, BMP, ALB, MG #### [facility] [address] [address] [address] Diamante Lacey CREATININE URINEon URINE CREAT 129.52 mg/dL Normal 20.00-300.0 0 [facility] Comment on above: Performed By: #### C REAU, PROTU #### [facility] [address] [address] [address] Diamante Lacey HEMOGLOBINon 09-08-2022 Hemoglobin (Bld) [Mass/Vol] 13.2 g/dL Critically low 14.0-18.0 [facility] Comment on above: Performed By: #### H GB #### [facility] [address] [place] [address] Dr. Diamante Lacey MAGNESIUMon 09-08-2022 Magnesium [Mass/Vol] 1.5 mg/dL Critically low 1.8-2.4 [facility] Comment on above: Performed By: #### P HOS, BMP, ALB, MG #### [facility] [address] [place] [address] Dr. Diamante Lacey PHOSPHORUSon 09-08-2022 Phosphate [Mass/Vol] 3.3 mg/dL Normal 2.6-4.7 [facility] Comment on above: Performed By: #### P HOS, BMP, ALB, MG #### [facility] [address] [place] [address] Dr. Diamante Lacey PROF CHEM 8 (BAS METB)on Anion gap [Moles/Vol] 9.6 mmol/L Normal [facility] Comment on above: Performed By: #### P HOS, BMP, ALB, MG #### [facility] [address] [place] [address] Dr. Diamante Lacey Calcium [Mass/Vol] 8.9 mg/dL Normal 8.5-10.1 [facility] Comment on above: Performed By: #### P HOS, BMP, ALB, MG #### [facility] [address] [place] [address] Dr. Diamante Lacey Chloride [Moles/Vol] 106 mmol/L Normal 98-107 [facility] Comment on above: Performed By: #### P HOS, BMP, ALB, MG #### [facility] [address] [place] [address] Dr. Diamante Lacey CO2 [Moles/Vol] 30.5 mmol/L Normal 21.0-32.0 [facility] Comment on above: Performed By: #### P HOS, BMP, ALB, MG #### [facility] [address] [place] [address] Dr. Diamante Lacey Creatinine [Mass/Vol] 1.34 mg/dL Critically high 0.70-1.30 [facility] Comment on above: Performed By: #### P HOS, BMP, ALB, MG #### [facility] [address] [address] [address] Diamante Lacey EGFR-AF GREENLANDIC >60 Normal >=60 [facility] Comment on above: Performed By: #### P HOS, BMP, ALB, MG #### [facility] [address] [address] [address] Diamante Lacey EGFR-NON AF GREENLANDIC 53 mL/min/1.73m2 Critically low >=60 [facility] Comment on above: Performed By: #### P HOS, BMP, ALB, MG #### [facility] [address] [place] [address] Dr. Diamante Lacey Glucose [Mass/Vol] 121 mg/dL Critically high 74-106 [facility] Comment on above: Performed By: #### P HOS, BMP, ALB, MG #### [facility] [address] [address] [address] Diamante Lacey Potassium [Moles/Vol] 4.1 mmol/L Normal 3.5-5.1 [facility] Comment on above: Performed By: #### P HOS, BMP, ALB, MG #### [facility] [address] [place] [address] Dr. Diamante Lacey Sodium [Moles/Vol] 142 mmol/L Normal 136-145 [facility] Comment on above: Performed By: #### P HOS, BMP, ALB, MG #### [facility] [address] [address] [address] Diamante Lacey Urea nitrogen [Mass/Vol] 19.0 mg/dL Critically high 7.0-18.0 [facility] Comment on above: Performed By: #### P HOS, BMP, ALB, MG #### [facility] [address] [address] [address] Diamante Lacey Urea nitrogen/Creatinine [Mass ratio] 14.2 mg/mg Normal [facility] Comment on above: Performed By: #### P HOS, BMP, ALB, MG #### [facility] [address] [place] [address] Dr. Diamante Lacey PROTEIN RAND URINEon 023 UR PROT 15.5 mg/dL Critically high <=11.9 [facility] Comment on above: Performed By: #### C REAU, PROTU #### [facility] [address] [place] [address] Dr. Diamante Lacey CBC AUTO DIFFon 06-06-2022 BASO # 0.1 103/ul Normal 0.0-0.1 [facility] Comment on above: Performed By: #### B MP #### [facility] [address] [place] [address] Dr. Diamante Lacey Basophils/100 WBC (Bld) 0.8 % Normal 0.2-2.0 [facility] Comment on above: Performed By: #### B MP #### [facility] [address] [place] [address] Dr. Diamante Lacey EO # 0.2 103/ul Normal 0.0-0.7 [facility] Comment on above: Performed By: #### B MP #### [facility] [address] [place] [address] Dr. Diamante Lacey Eosinophils/100 WBC (Bld) 3.0 % Normal 0.9-7.0 [facility] Comment on above: Performed By: #### B MP #### [facility] [address] [place] [address] Dr. Diamante Lacey Erythrocyte distribution width (RBC) [Ratio] 14.2 % Normal 11.0-15.0 [facility] Comment on above: Performed By: #### B MP #### [facility] [address] [place] [address] Dr. Diamante Lacey Hematocrit (Bld) [Volume fraction] 41.4 % Critically low 42.0-54.0 [facility] Comment on above: Performed By: #### B MP #### [facility] [address] [place] [address] Dr. Diamante Lacey Hemoglobin (Bld) [Mass/Vol] 14.0 g/dL Normal 14.0-18.0 [facility] Comment on above: Performed By: #### B MP #### [facility] [address] [place] [address] Dr. Diamante Lacey IG # 0.03 10e3/ul Normal 0.00-0.03 [facility] Comment on above: Performed By: #### B MP #### [facility] [address] [place] [address] Dr. Diamante Lacey IG % 0.4 % Normal 0.0-0.5 [facility] Comment on above: Performed By: #### B MP #### [facility] [address] [place] [address] Dr. Diamante Lacey LYMPH # 1.8 103/ul Normal 1.2-3.8 [facility] Comment on above: Performed By: #### B MP #### [facility] [address] [place] [address] Dr. Diamante Lacey Lymphocytes/100 WBC (Bld) 23.0 % Normal 20.5-60.0 [facility] Comment on above: Performed By: #### B MP #### [facility] [address] [place] [address] Dr. Diamante Lacey MANUAL DIFF REQ NO Normal [facility] Comment on above: Performed By: #### B MP #### [facility] [address] [place] [address] Dr. Diamante Lacey MCH (RBC) [Entitic mass] 30.3 pg Normal 25.9-34.0 [facility] Comment on above: Performed By: #### B MP #### [facility] [address] [place] [address] Dr. Diamante Lacey MCHC (RBC) [Mass/Vol] 33.8 g/dL Normal 29.9-35.2 [facility] Comment on above: Performed By: #### B MP #### [facility] [address] [place] [address] Dr. Diamante Lacey MCV (RBC) [Entitic vol] 89.6 fL Normal 80.0-94.0 [facility] Comment on above: Performed By: #### B MP #### [facility] [address] [address] [address] Diamante Lacey MONO # 0.8 103/ul Normal 0.3-0.8 [facility] Comment on above: Performed By: #### B MP #### [facility] [address] [address] [address] Diamante Lacey Monocytes/100 WBC (Bld) 9.8 % Normal 1.7-12.0 [facility] Comment on above: Performed By: #### B MP #### [facility] [address] [address] [address] Diamante Lacey NEUT # 5.0 103/ul Normal 1.4-6.5 [facility] Comment on above: Performed By: #### B MP #### [facility] [address] [address] [address] Diamante Lacey Neutrophils/100 WBC (Bld) 63.0 % Normal 43.0-75.0 [facility] Comment on above: Performed By: #### B MP #### [facility] [address] [address] [address] Diamante Lacey Platelet mean volume (Bld) [Entitic vol] 10.4 fL Normal 9.5-13.5 [facility] Comment on above: Performed By: #### B MP #### [facility] [address] [address] [address] Diamante Lacey PLT 215 103/ul Normal 150-450 [facility] Comment on above: Performed By: #### B MP #### [facility] [address] [address] [address] Diamante Lacey RBC 4.62 106/ul Critically low 4.70-6.10 [facility] Comment on above: Performed By: #### B MP #### [facility] [address] [address] [address] Diamante Lacey WBC 7.9 103/ul Normal 4.0-11.0 [facility] Comment on above: Performed By: #### B MP #### [facility] [address] [place] [address] Dr. Diamante Lacey CREATININE URINEon 2 URINE CREAT 46.09 mg/dL Normal 20.00-300.0 0 [facility] Comment on above: Performed By: #### B MP #### [facility] [address] [place] [address] Dr. Diamante Lacey MAGNESIUMon 06-06-2022 Magnesium [Mass/Vol] 2.2 mg/dL Normal 1.8-2.4 [facility] Comment on above: Performed By: #### B MP #### [facility] [address] [place] [address] Dr. Diamante Lacey PHOSPHORUSon 06-06-2022 Phosphate [Mass/Vol] 4.9 mg/dL Critically high 2.6-4.7 [facility] Comment on above: Performed By: #### B MP #### [facility] [address] [place] [address] Dr. Diamante Lacey PROF 14(COMP METB)on 022 Albumin [Mass/Vol] 3.9 g/dL Normal 3.4-5.0 [facility] Comment on above: Performed By: #### B MP #### [facility] [address] [place] [address] Dr. Diamante Lacey Albumin/Globulin [Mass ratio] 1.3 {ratio} Normal [facility] Comment on above: Performed By: #### B MP #### [facility] [address] [place] [address] Dr. Diamante Lacey ALP [Catalytic activity/Vol] 80 U/L Normal 46-116 [facility] Comment on above: Performed By: #### B MP #### [facility] [address] [place] [address] Dr. Diamante Lacey ALT [Catalytic activity/Vol] 32 U/L Normal 16-63 [facility] Comment on above: Performed By: #### B MP #### [facility] [address] [place] [address] Dr. Diamante Lacey Anion gap [Moles/Vol] 10.5 mmol/L Normal [facility] Comment on above: Performed By: #### B MP #### [facility] [address] [address] [address] Diamante Lacey AST [Catalytic activity/Vol] 8 U/L Critically low 15-37 [facility] Comment on above: Performed By: #### B MP #### [facility] [address] [address] [address] Diamante Lacey Bilirubin [Mass/Vol] 0.6 mg/dL Normal 0.2-1.0 [facility] Comment on above: Performed By: #### B MP #### [facility] [address] [address] [address] Diamante Lacey Calcium [Mass/Vol] 9.4 mg/dL Normal 8.5-10.1 [facility] Comment on above: Performed By: #### B MP #### [facility] [address] [address] [address] Diamante Lacey Chloride [Moles/Vol] 103 mmol/L Normal 98-107 [facility] Comment on above: Performed By: #### B MP #### [facility] [address] [address] [address] Diamante Lacey CO2 [Moles/Vol] 30.7 mmol/L Normal 21.0-32.0 [facility] Comment on above: Performed By: #### B MP #### [facility] [address] [address] [address] Diamante Lacey Creatinine [Mass/Vol] 1.72 mg/dL Critically high 0.70-1.30 [facility] Comment on above: Performed By: #### B MP #### [facility] [address] [address] [address] Diamante Lacey EGFR-AF GREENLANDIC 48 mL/min/1.73m2 Critically low >=60 [facility] Comment on above: Performed By: #### B MP #### [facility] [address] [address] [address] Diamante Lacey EGFR-NON AF GREENLANDIC 40 mL/min/1.73m2 Critically low >=60 [facility] Comment on above: Performed By: #### B MP #### [facility] [address] [address] [address] Diamante Lacey Globulin (S) [Mass/Vol] 3.1 g/dL Normal [facility] Comment on above: Performed By: #### B MP #### [facility] [address] [address] [address] Diamante Lacey Glucose [Mass/Vol] 137 mg/dL Critically high 74-106 [facility] Comment on above: Performed By: #### B MP #### [facility] [address] [address] [address] Diamante Lacey Potassium [Moles/Vol] 4.2 mmol/L Normal 3.5-5.1 [facility] Comment on above: Performed By: #### B MP #### [facility] [address] [place] [address] Dr. Diamante Lacey Protein [Mass/Vol] 7.0 g/dL Normal 6.4-8.2 [facility] Comment on above: Performed By: #### B MP #### [facility] [address] [place] [address] Dr. Diamante Lacey Sodium [Moles/Vol] 140 mmol/L Normal 136-145 [facility] Comment on above: Performed By: #### B MP #### [facility] [address] [place] [address] Dr. Diamante Lacey Urea nitrogen [Mass/Vol] 32.0 mg/dL Critically high 7.0-18.0 [facility] Comment on above: Performed By: #### B MP #### [facility] [address] [place] [address] Dr. Diamante Lacey Urea nitrogen/Creatinine [Mass ratio] 18.6 mg/mg Normal [facility] Comment on above: Performed By: #### B MP #### [facility] [address] [address] [address] Diamante Lacey PROTEIN RAND URINEon 022 UR PROT <6.0 Normal <=11.9 [facility] Comment on above: Performed By: #### B MP #### [facility] [address] [place] [address] Dr. Diamante Lacey UA RANDOM W/MICROSCOPICon BACTERIA NONE SEEN Normal NONE SEEN [facility] Comment on above: Performed By: #### B MP #### [facility] [address] [place] [address] Dr. Diamante Lacey Bilirubin Ql (U) Negative Normal NEGATIVE [facility] Comment on above: Performed By: #### B MP #### [facility] [address] [place] [address] Dr. Diamante Lacey CAST NONE SEEN Normal NONE SEEN [facility] Comment on above: Performed By: #### B MP #### [facility] [address] [place] [address] Dr. Diamante Lacey Clarity (U) CLEAR Normal CLEAR [facility] Comment on above: Performed By: #### B MP #### [facility] [address] [place] [address] Dr. Diamante Lacey Color (U) LT. YELLOW Normal YELLOW [facility] Comment on above: Performed By: #### B MP #### [facility] [address] [place] [address] Dr. Dimaante Lacey Crystals LM Nom (Urine sed) NONE SEEN Normal NONE SEEN [facility] Comment on above: Performed By: #### B MP #### [facility] [address] [place] [address] Dr. Diamante Lacey Epithelial cells LM Ql (Urine sed) RARE Normal NONE SEEN /RARE [facility] Comment on above: Performed By: #### B MP #### [facility] [address] [place] [address] Dr. Diamante Lacey Glucose Ql (U) >1000 Abnormal NEGATIVE [facility] Comment on above: Performed By: #### B MP #### [facility] [address] [place] [address] Dr. Diamante Lacey Hemoglobin Ql (U) Negative Normal NEGATIVE [facility] Comment on above: Performed By: #### B MP #### [facility] [address] [place] [address] Dr. Diamante Lacey Ketones Ql (U) Negative Normal NEGATIVE [facility] Comment on above: Performed By: #### B MP #### [facility] [address] [place] [address] Dr. Diamante Lacey LEUKOCYTES Negative Normal NEGATIVE [facility] Comment on above: Performed By: #### B MP #### [facility] [address] [address] [address] Diamante Lacey MUCOUS NONE SEEN Normal NONE SEEN [facility] Comment on above: Performed By: #### B MP #### [facility] [address] [place] [address] Dr. Diamante Lacey Nitrite Ql (U) Negative Normal NEGATIVE [facility] Comment on above: Performed By: #### B MP #### [facility] [address] [place] [address] Dr. Diamante Lacey pH (U) 5.5 [pH] Normal 5-9 [facility] Comment on above: Performed By: #### B MP #### [facility] [address] [place] [address] Dr. Diamante Lacey RBC NONE SEEN Abnormal 0-2 [facility] Comment on above: Performed By: #### B MP #### [facility] [address] [place] [address] Dr. Diamante Lacey SPEC GRAVITY 1.020 Normal 1.005-<=1.0 25 [facility] Comment on above: Performed By: #### B MP #### [facility] [address] [place] [address] Dr. Diamante Lacey UA PROTEIN Negative Normal NEGATIVE/ TRACE [facility] Comment on above: Performed By: #### B MP #### [facility] [address] [place] [address] Dr. Diamante Lacey Urobilinogen Qn (U) 0.2 {Iraida'U}/dL Normal 0.2 - 1. 0 [facility] Comment on above: Performed By: #### B MP #### [facility] [address] [place] [address] Dr. Diamante Lacey WBC NONE SEEN Normal NONE SEEN [facility] Comment on above: Performed By: #### B MP #### [facility] [address] [address] [address] Diamante Lacey PROF CHEM 8 (BAS METB)on Anion gap [Moles/Vol] 14.5 mmol/L Normal [facility] Comment on above: Performed By: #### B MP #### [facility] [address] [address] [address] Diamante Lacey Calcium [Mass/Vol] 9.3 mg/dL Normal 8.5-10.1 [facility] Comment on above: Performed By: #### B MP #### [facility] [address] [address] [address] Diamante Lacey Chloride [Moles/Vol] 103 mmol/L Normal 98-107 [facility] Comment on above: Performed By: #### B MP #### [facility] [address] [address] [address] Diamante Lacey CO2 [Moles/Vol] 28.0 mmol/L Normal 21.0-32.0 [facility] Comment on above: Performed By: #### B MP #### [facility] [address] [place] [address] Dr. Diamante Lacey Creatinine [Mass/Vol] 1.67 mg/dL Critically high 0.70-1.30 [facility] Comment on above: Performed By: #### B MP #### [facility] [address] [address] [address] Diamante Lacey EGFR-AF GREENLANDIC 50 mL/min/1.73m2 Critically low >=60 [facility] Comment on above: Performed By: #### B MP #### [facility] [address] [place] [address] Dr. Diamante Lacey EGFR-NON AF GREENLANDIC 41 mL/min/1.73m2 Critically low >=60 [facility] Comment on above: Performed By: #### B MP #### [facility] [address] [place] [address] Dr. Diamante Lacey Glucose [Mass/Vol] 165 mg/dL Critically high 74-106 T [facility] Comment on above: Performed By: #### B MP #### [facility] [address] [place] [address] Dr. Diamante Lacey Potassium [Moles/Vol] 4.5 mmol/L Normal 3.5-5.1 [facility] Comment on above: Performed By: #### B MP #### [facility] [address] [place] [address] Dr. Diamante Lacey Sodium [Moles/Vol] 141 mmol/L Normal 136-145 [facility] Comment on above: Performed By: #### B MP #### [facility] [address] [place] [address] Dr. Diamante Lacey Urea nitrogen [Mass/Vol] 39.0 mg/dL Critically high 7.0-18.0 [facility] Comment on above: Performed By: #### B MP #### [facility] [address] [place] [address] Dr. Diamante Lacey Urea nitrogen/Creatinine [Mass ratio] 23.4 mg/mg Normal [facility] Comment on above: Performed By: #### B MP #### [facility] [address] [place] [address] Dr. Diamante Lacey PROF CHEM 8 (BAS METB)on Anion gap [Moles/Vol] 13.7 mmol/L Normal [facility] Comment on above: Performed By: #### B MP #### [facility] [address] [place] [address] Dr. Diamante Lacey Calcium [Mass/Vol] 9.0 mg/dL Normal 8.5-10.1 [facility] Comment on above: Performed By: #### B MP #### [facility] [address] [place] [address] Dr. Diamante Lacey Chloride [Moles/Vol] 102 mmol/L Normal 98-107 [facility] Comment on above: Performed By: #### B MP #### [facility] [address] [place] [address] Dr. Diamante Lacey CO2 [Moles/Vol] 29.3 mmol/L Normal 21.0-32.0 [facility] Comment on above: Performed By: #### B MP #### [facility] [address] [address] [address] Diamante Lacey Creatinine [Mass/Vol] 1.66 mg/dL Critically high 0.70-1.30 [facility] Comment on above: Performed By: #### B MP #### [facility] [address] [address] [address] Diamante Lacey EGFR-AF GREENLANDIC 50 mL/min/1.73m2 Critically low >=60 [facility] Comment on above: Performed By: #### B MP #### [facility] [address] [address] [address] Diamante Lacey EGFR-NON AF GREENLANDIC 41 mL/min/1.73m2 Critically low >=60 [facility] Comment on above: Performed By: #### B MP #### [facility] [address] [address] [address] Diamante Lacey Glucose [Mass/Vol] 137 mg/dL Critically high 74-106 [facility] Comment on above: Performed By: #### B MP #### [facility] [address] [address] [address] Diamante Lacey Potassium [Moles/Vol] 4.0 mmol/L Normal 3.5-5.1 [facility] Comment on above: Performed By: #### B MP #### [facility] [address] [address] [address] Diamante Lacey Sodium [Moles/Vol] 141 mmol/L Normal 136-145 [facility] Comment on above: Performed By: #### B MP #### [facility] [address] [address] [address] Diamante Lacey Urea nitrogen [Mass/Vol] 38.0 mg/dL Critically high 7.0-18.0 [facility] Comment on above: Performed By: #### B MP #### [facility] [address] [address] [address] Diamante Lacey Urea nitrogen/Creatinine [Mass ratio] 22.9 mg/mg Normal [facility] Comment on above: Performed By: #### B MP #### [facility] [address] [address] [address] Diamante Lacey NM STRESS ONLY SINGLEon NM STRESS ONLY SINGLE Patient: TAWANDA JURADO Exam Date: 02/16/2022 : 1955 Gender:M Ordering : DR SURYA MAST M.D. Admission #: [id number] Family : DR JUDI WILSON M.D. Order #: [id number] CLICK HERE TO VIEW EXAM RADIOLOGY REPORT PROCEDURE: RADIONUCLIDE IMAGING STRESS ONLY COMPARISON: None. INDICATIONS: Chest pain TECHNIQUE: Exam Description: Rest Only two day protocol non-gated SPECT Rest Imagin.2 mCi Tc-99m Cardiolite IV on 03/10/2022 Stress Imaging Not performed Stress not performed. FINDINGS: REST ONLY QUALITY OF STUDY: Good. PERFUSION DEFECT: LOCATION: Basal inferior. Mid-anterior. SIZE: Small (1-2 segments). SEVERITY: Mild. TYPE: N/A. WALL MOTION: N/A LV SIZE: N/A TID / TCD: N/A LVEF: N/A. SUMMARY: Myocardial perfusion imaging study has ABNORMAL findings. CONCLUSION: Rest only images demonstrate a small area of decreased activity basal inferior and mid anterior thomas. Patient had hypertension and was advised to go to the emergency room, the patient declined Dictated by: Ifeanyi Law MD on 03/24/2022 at 11:51 Approved by: Ifeanyi Law MD on 03/24/2022 at 11:54 Normal [facility] CBC AUTO DIFFon 01-27-2022 BASO # 0.1 103/ul Normal 0.0-0.1 [facility] Comment on above: Performed By: #### B MP #### [facility] [address] [address] [address] Diamante Lacey Basophils/100 WBC (Bld) 0.6 % Normal 0.2-2.0 [facility] Comment on above: Performed By: #### B MP #### [facility] [address] [address] [address] Diamante Lacey EO # 0.2 103/ul Normal 0.0-0.7 [facility] Comment on above: Performed By: #### B MP #### [facility] [address] [place] [address] Dr. Diamante Lacey Eosinophils/100 WBC (Bld) 2.6 % Normal 0.9-7.0 [facility] Comment on above: Performed By: #### B MP #### [facility] [address] [place] [address] Dr. Diamante Lacey Erythrocyte distribution width (RBC) [Ratio] 14.6 % Normal 11.0-15.0 [facility] Comment on above: Performed By: #### B MP #### [facility] [address] [place] [address] Dr. Diamante Lacey Hematocrit (Bld) [Volume fraction] 39.1 % Critically low 42.0-54.0 [facility] Comment on above: Performed By: #### B MP #### [facility] [address] [place] [address] Dr. Diamante Lacey Hemoglobin (Bld) [Mass/Vol] 12.8 g/dL Critically low 14.0-18.0 [facility] Comment on above: Performed By: #### B MP #### [facility] [address] [place] [address] Dr. Diamante Lacey IG # 0.02 10e3/ul Normal 0.00-0.03 [facility] Comment on above: Performed By: #### B MP #### [facility] [address] [place] [address] Dr. Diamante Lacey IG % 0.2 % Normal 0.0-0.5 [facility] Comment on above: Performed By: #### B MP #### [facility] [address] [place] [address] Dr. Diamante Lacey LYMPH # 1.7 103/ul Normal 1.2-3.8 [facility] Comment on above: Performed By: #### B MP #### [facility] [address] [place] [address] Dr. Diamante Lacey Lymphocytes/100 WBC (Bld) 20.8 % Normal 20.5-60.0 [facility] Comment on above: Performed By: #### B MP #### [facility] [address] [place] [address] Dr. Diamante Lacey MANUAL DIFF REQ NO Normal [facility] Comment on above: Performed By: #### B MP #### [facility] [address] [place] [address] Dr. Diamante Lacey MCH (RBC) [Entitic mass] 30.0 pg Normal 25.9-34.0 [facility] Comment on above: Performed By: #### B MP #### [facility] [address] [place] [address] Dr. Diamante Lacey MCHC (RBC) [Mass/Vol] 32.7 g/dL Normal 29.9-35.2 [facility] Comment on above: Performed By: #### B MP #### [facility] [address] [place] [address] Dr. Diamante Lacey MCV (RBC) [Entitic vol] 91.6 fL Normal 80.0-94.0 [facility] Comment on above: Performed By: #### B MP #### [facility] [address] [place] [address] Dr. Diamante Lacey MONO # 0.8 103/ul Normal 0.3-0.8 [facility] Comment on above: Performed By: #### B MP #### [facility] [address] [place] [address] Dr. Diamante Lacey Monocytes/100 WBC (Bld) 9.4 % Normal 1.7-12.0 [facility] Comment on above: Performed By: #### B MP #### [facility] [address] [place] [address] Dr. Diamante Lacey NEUT # 5.5 103/ul Normal 1.4-6.5 [facility] Comment on above: Performed By: #### B MP #### [facility] [address] [place] [address] Dr. Diamante Lacey Neutrophils/100 WBC (Bld) 66.4 % Normal 43.0-75.0 [facility] Comment on above: Performed By: #### B MP #### [facility] [address] [address] [address] Diamante Lacey Platelet mean volume (Bld) [Entitic vol] 11.3 fL Normal 9.5-13.5 [facility] Comment on above: Performed By: #### B MP #### [facility] [address] [address] [address] Diamante Lacey PLT 196 103/ul Normal 150-450 [facility] Comment on above: Performed By: #### B MP #### [facility] [address] [address] [address] Diamante Lacey RBC 4.27 106/ul Critically low 4.70-6.10 [facility] Comment on above: Performed By: #### B MP #### [facility] [address] [place] [address] Dr. Diamante Lacey WBC 8.3 103/ul Normal 4.0-11.0 [facility] Comment on above: Performed By: #### B MP #### [facility] [address] [address] [address] Diamante Lacey LIPASEon 01-27-2022 Lipase [Catalytic activity/Vol] 227.0 U/L Normal 73.0-393.0 [facility] Comment on above: Performed By: #### B MP #### [facility] [address] [place] [address] Dr. Diamante Lacey MAGNESIUMon 01-27-2022 Magnesium [Mass/Vol] 1.7 mg/dL Critically low 1.8-2.4 [facility] Comment on above: Performed By: #### M G #### [facility] [address] [address] [address] Diamante Lacey PROF 14(COMP METB)on 022 Albumin [Mass/Vol] 3.6 g/dL Normal 3.4-5.0 [facility] Comment on above: Performed By: #### B MP #### [facility] [address] [place] [address] Dr. Diamante Lacey Albumin/Globulin [Mass ratio] 1.4 {ratio} Normal [facility] Comment on above: Performed By: #### B MP #### [facility] [address] [address] [address] Diamante Lacey ALP [Catalytic activity/Vol] 88 U/L Normal 46-116 [facility] Comment on above: Performed By: #### B MP #### [facility] [address] [address] [address] Diamante Lacey ALT [Catalytic activity/Vol] 30 U/L Normal 16-63 [facility] Comment on above: Performed By: #### B MP #### [facility] [address] [address] [address] Diamante Lacey Anion gap [Moles/Vol] 15.7 mmol/L Normal [facility] Comment on above: Performed By: #### B MP #### [facility] [address] [address] [address] Diamante Lacey AST [Catalytic activity/Vol] 13 U/L Critically low 15-37 [facility] Comment on above: Performed By: #### B MP #### [facility] [address] [address] [address] Diamante Lacey Bilirubin [Mass/Vol] 0.5 mg/dL Normal 0.2-1.0 [facility] Comment on above: Performed By: #### B MP #### [facility] [address] [address] [address] Diamante Lacey Calcium [Mass/Vol] 8.5 mg/dL Normal 8.5-10.1 [facility] Comment on above: Performed By: #### B MP #### [facility] [address] [address] [address] Diamante Lacey Chloride [Moles/Vol] 106 mmol/L Normal 98-107 [facility] Comment on above: Performed By: #### B MP #### [facility] [address] [address] [address] Diamante Lacey CO2 [Moles/Vol] 24.4 mmol/L Normal 21.0-32.0 [facility] Comment on above: Performed By: #### B MP #### [facility] [address] [address] [address] Diamante Lacey Creatinine [Mass/Vol] 1.41 mg/dL Critically high 0.70-1.30 [facility] Comment on above: Performed By: #### B MP #### [facility] [address] [address] [address] Diamante Lacey EGFR-AF GREENLANDIC >60 Normal >=60 [facility] Comment on above: Performed By: #### B MP #### [facility] [address] [address] [address] Diamante Lacey EGFR-NON AF GREENLANDIC 50 mL/min/1.73m2 Critically low >=60 [facility] Comment on above: Performed By: #### B MP #### [facility] [address] [address] [address] Diamante Lacey Globulin (S) [Mass/Vol] 2.5 g/dL Normal [facility] Comment on above: Performed By: #### B MP #### [facility] [address] [address] [address] Diamante Lacey Glucose [Mass/Vol] 103 mg/dL Normal 74-106 [facility] Comment on above: Performed By: #### B MP #### [facility] [address] [address] [address] Diamante Lacey Potassium [Moles/Vol] 4.1 mmol/L Normal 3.5-5.1 [facility] Comment on above: Performed By: #### B MP #### [facility] [address] [address] [address] Diamante Lacey Protein [Mass/Vol] 6.1 g/dL Critically low 6.4-8.2 [facility] Comment on above: Performed By: #### B MP #### [facility] [address] [address] [address] Diamante Lacey Sodium [Moles/Vol] 142 mmol/L Normal 136-145 [facility] Comment on above: Performed By: #### B MP #### [facility] [address] [address] [address] Diamante Lacey Urea nitrogen [Mass/Vol] 23.0 mg/dL Critically high 7.0-18.0 [facility] Comment on above: Performed By: #### B MP #### [facility] [address] [id number] Diamante Lacey Urea nitrogen/Creatinine [Mass ratio] 16.3 mg/mg Normal [facility] Comment on above: Performed By: #### B MP #### [facility] [address] [address] [address] Diamante Lacey TROPONIN, HIGH SENSITIVITYon 01-27-2022 HSTROP 15.5 pg/mL Normal 4.0-76.1 [facility] Comment on above: Result Comment: CUT- OFF POINTS HAVE BEEN ESTABLISHED BASED ON THE FOURTH UNIVERSAL DEFINITIONS OF MYOCARDIAL INFARCTION. THE UPPER REFERENCE LIMIT (URL) OF TROPONIN, DEFINED THE 99TH PERCENTILE OF cTnI DISTRIBUTION IN A REFERENCE POPULATION, HAS BEEN CONFIRMED THE DECISION THRESHOLD FOR PR DIAGNOSIS. Performed By: #### B MP #### [facility] [address] [address] [address] Diamante Lacey HSTROP 13.8 pg/mL Normal 4.0-76.1 [facility] Comment on above: Result Comment: CUT- OFF POINTS HAVE BEEN ESTABLISHED BASED ON THE FOURTH UNIVERSAL DEFINITIONS OF MYOCARDIAL INFARCTION. THE UPPER REFERENCE LIMIT (URL) OF TROPONIN, DEFINED THE 99TH PERCENTILE OF cTnI DISTRIBUTION IN A REFERENCE POPULATION, HAS BEEN CONFIRMED THE DECISION THRESHOLD FOR PR DIAGNOSIS. Performed By: #### B MP #### [facility] [address] [address] [address] Diamante Lacey XR CHEST 1 Von 01-27-2022 XR CHEST 1 V EXAM: XR CHEST 1 V a t 1805 hours HISTORY: Acute onset chest pain for the past day COMPARISON: None. TECHNIQUE: AP upright portable chest x-ray FINDINGS: The heart is not enlarged and the vasculature is not distended. No acute infiltrate, effusion or pneumothorax is identified. Hardware is seen secondary to median sternotomy. Mild degenerative changes are noted in the spine. IMPRESSION: No acute infiltrate or evidence of cardiac decompensation. Comparison with a previous study would be helpful in confirming the chronicity of these findings. Electronically authenticated by: CARLOS ALBERTO RAE Date: 2022-01-27 19:00 Normal [facility] Office Visit (Cardiology)on 06-18-2021 Follow-up visit Patient Instructions Please bring all medicines, vitamins, and herbal supplements with you when you come to the office. Prescriptions will not be filled unless you are compliant with your follow up appointments or have a follow up appointment scheduled as per instruction of your physician. Refills should be requested at the time of your visit. Chief Complaint TAWANDA JURADO is being seen for hypertension. History of Present Illness Patient returns in follow-up of recent adjustments in blood pressure medication. With the addition of spironolactone to hydrochlorothiazide he now has good control. Advised him that ideally we should have him off clonidine because of this I recommend he cut the dose from 0.2 mg daily to 0.1 mg daily. We will reconvene in the spring and make further adjustments. I cannot elicit from him any other complaints. Blood pressure appears to be well controlled and he has no symptoms of coronary disease such as those that preceded his original diagnosis and subsequent bypass surgery. Likewise his lipids and diabetes appear to be well controlled. As before the merits of diet lifestyle modification exercise and weight loss were reviewed with him. Active Problems Problems Essential hypertension, benign (401.1) (I10) Assessed By: Juanito Peterson (Cardiology); Last Assessed: 28 May 2021 Current Meds Medication NameInstruction Aspirin EC 81 MG Oral Tablet Delayed ReleaseTAKE 1 TABLET DAILY DIRECTED. Atorvastatin Calcium 80 MG Oral TabletTAKE 1 TABLET DAILY. cloNIDine HCl - 0.2 MG Oral TabletTAKE 1 TABLET DAILY. Clopidogrel Bisulfate 75 MG Oral TabletTAKE 1 TABLET DAILY. Farxiga 10 MG Oral TabletTAKE 1 TABLET BY MOUTH EVERY MORNING hydroCHLOROthiazide 50 MG Oral TabletTAKE 1 TABLET DAILY. Isosorbide Mononitrate ER 60 MG Oral Tablet Extended Release 24 HourTAKE 1 TABLET DAILY DIRECTED. Januvia 100 MG Oral TabletTAKE 1 TABLET ONCE DAILY. Labetalol HCl - 300 MG Oral TabletTAKE 1 TABLET EVERY 12 HOURS DAILY. Lisinopril 40 MG Oral TabletTAKE 1 TABLET DAILY. metFORMIN HCl - 1000 MG Oral TabletTAKE 1 TABLET EVERY 12 HOURS DAILY. Spironolactone 25 MG Oral TabletTAKE 1 TABLET DAILY. Terazosin HCl - 1 MG Oral CapsuleTAKE 1 CAPSULE AT BEDTIME NIGHTLY. Allergies Medication No Known Drug Allergies Recorded By: Daniella Castro; 05/28/2021 2:11:32 PM Review of Systems Constitutional: not feeling tired. Eyes: no eyesight problems. ENT: no hearing loss and no nosebleeds. Cardiovascular: no intermittent leg claudication and as noted in HPI. Respiratory: no chronic cough and no shortness of breath. Gastrointestinal: no change in bowel habits and no blood in stools. Genitourinary: no urinary frequency and no hematuria. Skin: no skin rashes. Neurological: no seizures and no frequent falls. Psychiatric: no depression and not suicidal. All other systems have been reviewed and are negative for complaint. Vitals Vital Signs Recorded: [id number] 01:30PMRecorded: [id number] 01:28PM Nnkdjgtu344, RUE, Fesvskf833, LUE, Sitting Zyzqqgudf67, RUE, Piyaqqt86, LUE, Sitting Heart Rate78, L Radial Height5 ft 10 in Tocuub534 lb BMI Gphopsjrbl50.72 kg/m2 BSA Calculated2.26 Physical Exam Constitutional: alert and in no acute distress. Eyes: no erythema, swelling or discharge from the eye . Neck: neck is supple, symmetric, trachea midline, no masses and no thyromegaly . Pulmonary: no increased work of breathing or signs of respiratory distress and lungs clear to auscultation. Cardiovascular: carotid pulses 2+ bilaterally with no bruit , JVP was normal, no thrills , regular rhythm, normal S1 and S2, no murmurs , pedal pulses 2+ bilaterally and no edema . Abdomen: abdomen non-tender, no masses and no hepatomegaly . Skin: skin warm and dry, normal skin turgor . Psychiatric judgment and insight is normal and oriented to person, place and time . Signatures Electronically signed by : Juanito Peterson MD; Jun 18 2021 4:27PM EST (Author) Normal Touchworks No Panel Informationon 06-11 8.8\S\8.8 Normal 8.2-10.2 [facility] 250 DO Work Phone: Comment on above: PERFORMED BY:[address] [address] [place], [place] [phone] MEDICAL DIRECTORHENOK YANEZ M.D. 27.0\S\27.0 Normal 22.0-30.0 [facility] [employer] 250 DO Work Phone: 103\S\103 Normal 95-114 [facility] [employer] 250 DO Work Phone: 4.4\S\4.4 Normal 3.5-5.1 [facility] [employer] 250 DO Work Phone: 138\S\138 Normal 136-146 [facility] [employer] 250 DO Work Phone: 53\S\53 Normal [facility] [employer] 250 DO Work Phone: Comment on above: GFR estimated refere nce range: According to KDOQI guidelines, <60 ml/min/1.73m2 is sufficient to diagnose a patient with chronic kidney disease. 44\S\44 Normal [facility] [employer] Zedmo DO Work Phone: 1.59\S\1.59 above high threshold 0.64-1.27 [facility] [employer] Zedmo DO Work Phone: 25\S\25 above high threshold 9-23 [facility] [employer] 250 DO Work Phone: 143\S\143 above high threshold 70-100 [facility] [employer]edmo DO Work Phone: Comment on above: Random Glucose Refer ence Range is dependent on time and content of last meal. Glucose of more than 200 mg/dL in a nonstressed, ambulatory subject supports the diagnosis of Diabetes Mellitus. ADA recommended reference range Office Visit (Cardiology)on 05-28-2021 Follow-up visit Diagnoses/Problems Assessed Essential hypertension, benign (401.1) (I10) Coronary artery disease (414.00) (I25.10) S/P CABG (coronary artery bypass graft) (V45.81) (Z95.1) Diabetes mellitus type 2, controlled (250.00) (E11.9) Hyperlipidemia (272.4) (E78.5) Former smoker (V15.82) (Z87.891) Quit 43 years ago Class 1 obesity with body mass index (BMI) of 34.0 to 34.9 in adult (278.00,V85.34) (E66.9,Z68.34) Orders Class 1 obesity with body mass index (BMI) of 34.0 to 34.9 in adult Healthy Weight Tips; Status:Complete; Done: 28May2021 Coronary artery disease IO EKG Electrocardiogram- 12 Lead; Status:Complete; Done: 28May2021 Coronary artery disease, Essential hypertension, benign Start: Spironolactone 25 MG Oral Tablet; TAKE 1 TABLET DAILY Basic Metabolic Panel; Status:Active; Requested for:11Jun2021; SocHx: Former smoker Tobacco Use Screening; Status:Complete; Done: 28May2021 Patient Instructions By signing my name below, Mara Martins LPN, Scribe, attest that this documentation has been prepared under the direction and in the presence of Dr. Juanito Peterson MD. Please bring all medicines, vitamins, and herbal supplements with you when you come to the office. Prescriptions will not be filled unless you are compliant with your follow up appointments or have a follow up appointment scheduled as per instruction of your physician. Refills should be requested at the time of your visit. Blood Pressure Follow Up In 2 weeks Follow up in 3 months Chief Complaint TAWANDA JURADO is being seen for New Patient. History of Present Illness Patient is referred by his primary care physician for difficult to control blood pressure. He is individual who has a history of coronary disease with bypass surgery. He is having no symptoms such as those that preceded his original diagnosis. Risk factors of diabetes and hyperlipidemia appear to be adequately addressed and treated but blood pressure control could be improved upon. We note that he was prescribed hydrochlorothiazide yesterday but did not start taking it yet and he was encouraged to do so but also add spironolactone 25 mg a day. Will recheck blood pressure in 2 weeks my hope is to eliminate clonidine. He also wishes to avoid amlodipine because of side effects. I cannot elicit any cardiac symptomatology. Because of this we suggest therapeutic changes as above. We did advocate diet weight loss and he will do the best he can. Current Meds Medication NameInstruction Aspirin EC 81 MG Oral Tablet Delayed ReleaseTAKE 1 TABLET DAILY DIRECTED. Atorvastatin Calcium 80 MG Oral TabletTAKE 1 TABLET DAILY. cloNIDine HCl - 0.2 MG Oral TabletTAKE 1 TABLET DAILY. Clopidogrel Bisulfate 75 MG Oral TabletTAKE 1 TABLET DAILY. Farxiga 10 MG Oral TabletTAKE 1 TABLET BY MOUTH EVERY MORNING hydroCHLOROthiazide 50 MG Oral TabletTAKE 1 TABLET DAILY. Isosorbide Mononitrate ER 60 MG Oral Tablet Extended Release 24 HourTAKE 1 TABLET DAILY DIRECTED. Januvia 100 MG Oral TabletTAKE 1 TABLET ONCE DAILY. Labetalol HCl - 300 MG Oral TabletTAKE 1 TABLET EVERY 12 HOURS DAILY. Lisinopril 40 MG Oral TabletTAKE 1 TABLET DAILY. metFORMIN HCl - 1000 MG Oral TabletTAKE 1 TABLET EVERY 12 HOURS DAILY. Terazosin HCl - 1 MG Oral CapsuleTAKE 1 CAPSULE AT BEDTIME NIGHTLY. Allergies Medication No Known Drug Allergies Recorded By: Daniella Castro; 05/28/2021 2:11:32 PM Social History Problems Daily caffeine consumption, 2-3 servings a day Former smoker (V15.82) (Z87.891) Quit 43 years ago No illicit drug use Occasional alcohol use Review of Systems Constitutional: not feeling tired. Eyes: no eyesight problems. ENT: no hearing loss and no nosebleeds. Cardiovascular: no intermittent leg claudication and as noted in HPI. Respiratory: no chronic cough and no shortness of breath. Gastrointestinal: no change in bowel habits and no blood in stools. Genitourinary: no urinary frequency and no hematuria. Skin: no skin rashes. Neurological: no seizures and no frequent falls. Psychiatric: no depression and not suicidal. All other systems have been reviewed and are negative for complaint. Vitals Vital Signs Recorded: 28May2021 02:21PMRecorded: 28May2021 02:13PM Aydkurte808, LUE, Uynslac374, RUE, Sitting Jgvigzfpm40, LUE, Lwbeztq702, RUE, Sitting Heart Rate71, Apical Height5 ft 10 in Nihxmt822 lb BMI Vmukeakdpi43.87 kg/m2 BSA Calculated2.27 Tobacco Useb) No Fall Screeninga) No falls within the last year EKG done in office today. Physical Exam Constitutional: alert and in no acute distress. Eyes: no erythema, swelling or discharge from the eye . Neck: neck is supple, symmetric, trachea midline, no masses and no thyromegaly . Pulmonary: no increased work of breathing or signs of respiratory distress and lungs clear to auscultation. Cardiovascular: carotid pulses 2+ bilaterally with no bruit , JVP was normal, no thrills , regular rhythm, normal S1 and (more content not included)... Normal [facility] Tobacco Screening.on Fall risk assessment a) No falls within the last year [facility] 250 DO Work Phone: Tobacco use status CP b) No [facility] 250 DO Work Phone: Vital Signs Date Time Vital Sign Value Performing Clinician Facility 10-30-2023 13:10-0400 Diastolic blood pressure 86 mm[Hg] MD Surya Mast Work Phone: [facility] 10-30-2023 13:10-0400 Heart rate 62 /min MD Surya Mast Work Phone: [facility] 10-30-2023 13:10-0400 Respiratory rate 16 /min MD Surya Mast Work Phone: [facility] 10-30-2023 13:10-0400 SaO2% (BldA) [Mass fraction] 98 % MD Surya Mast Work Phone: [facility] 10-30-2023 13:10-0400 Systolic blood pressure 140 mm[Hg] MD Suray Mast Work Phone: [facility] 10-30-2023 12:40-0400 Inhaled oxygen flow rate 6 L/min MD Surya Mast Work Phone: [facility] 10-30-2023 12:25-0400 Body height 175.26 cm MD Surya Mast Work Phone: [facility] 10-30-2023 12:25-0400 Body mass index (BMI) [Ratio] 34.9 kg/m2 MD Surya Mast Work Phone: [facility] 10-30-2023 12:25-0400 Body weight 107.5 kg MD Surya Mast Work Phone: [facility] 10-30-2023 10:15-0400 Body temperature 97.7 [degF] MD Surya Mast Work Phone: [facility] 08-31-2023 15:03-0500 Body height 175.26 cm MD Surya Mast Work Phone: [facility] 08-31-2023 15:03-0500 Body mass index (BMI) [Ratio] 34.9 kg/m2 MD Surya Mast Work Phone: [facility] 08-31-2023 15:03-0500 Body weight 107.5 kg MD Surya Mast Work Phone: [facility] 08-29-2023 11:25-0500 Body mass index (BMI) [Ratio] 35.12 kg/m2 Jason Fountain EMERGENCY DEPARTMENT NURSE Work Phone: [facility] 08-29-2023 11:25-0500 Body weight 107.86 kg Jason Fountain EMERGENCY DEPARTMENT NURSE Work Phone: [facility] 08-29-2023 11:25-0500 Diastolic blood pressure 83 mm[Hg] Jason Fountain EMERGENCY DEPARTMENT NURSE Work Phone: [facility] 08-29-2023 11:25-0500 Heart rate 70 /min Jason Fountain EMERGENCY DEPARTMENT NURSE Work Phone: [facility] 08-29-2023 11:25-0500 Respiratory rate 14 /min Jason Fountain EMERGENCY DEPARTMENT NURSE Work Phone: [facility] 08-29-2023 11:25-0500 SaO2% (BldA) [Mass fraction] 95 % Jason Fountain EMERGENCY DEPARTMENT NURSE Work Phone: [facility] 08-29-2023 11:25-0500 Systolic blood pressure 140 mm[Hg] Jason Fountain EMERGENCY DEPARTMENT NURSE Work Phone: [facility] 08-02-2023 09:05-0500 Body height 175.26 cm Leidy Jamison Other [facility] 08-02-2023 09:05-0500 Body mass index (BMI) [Ratio] 35.47 kg/m2 Leidy Jamison Other [facility] [employer] Other 08-02-2023 09:05-0500 Body temperature 97.1 [degF] Leidy Jamison Other [facility] [employer] Other 08-02-2023 09:05-0500 Body weight 108.95 kg Leidy Jamison Other [facility] 08-02-2023 09:05-0500 Diastolic blood pressure 74 mm[Hg] Leidy Jamison Other [facility] 08-02-2023 09:05-0500 Respiratory rate 18 /min Leidy Jamison Other [facility] [employer] Other 08-02-2023 09:05-0500 SaO2% (BldA) [Mass fraction] 89 % Leidy Jamison Other [facility] [employer] Other 08-02-2023 09:05-0500 Systolic blood pressure 122 mm[Hg] Leidy Jamison Other [facility] 06-18-2021 13:30-0500 Diastolic blood pressure 80 mm[Hg] [employer]LL [employer] [facility] DO Work Phone: 06-18-2021 13:30-0500 Systolic blood pressure 122 mm[Hg] Rugen [employer] [place] Work Phone: [facility] DO Work Phone: 06-18-2021 13:28-0500 Body height 177.8 cm Rugen [employer] Pro Work Phone: [facility] DO Work Phone: 06-18-2021 13:28-0500 Body mass index (BMI) [Ratio] 34.72 kg/m2 Rugen M [place] Work Phone: [facility] 250 DO Work Phone: 06-18-2021 13:28-0500 Body surface area Derived from formula 2.26 m2 Rugen M Pro Work Phone: [facility] 250 DO Work Phone: 06-18-2021 13:28-0500 Body weight 109.77 kg Rugen Deysi Pro Work Phone: [facility] 250 DO Work Phone: 06-18-2021 13:28-0500 Diastolic blood pressure 72 mm[Hg] Rugen De[employer]i [employer] Work Phone: [facility] 250 DO Work Phone: 06-18-2021 13:28-0500 Heart rate 78 /min Rugen Deysi [place] Work Phone: [facility] 250 DO Work Phone: 06-18-2021 13:28-0500 Systolic blood pressure 124 mm[Hg] Rugen Deysi [place] Work Phone: [facility] 250 DO Work Phone: 05-28-2021 14:21-0500 Diastolic blood pressure 98 mm[Hg] Rugen Deysi [place] Work Phone: [facility] 250 DO Work Phone: 05-28-2021 14:21-0500 Systolic blood pressure 160 mm[Hg] Rugen M [place] Work Phone: [facility] 250 DO Work Phone: 05-28-2021 14:13-0500 Body height 177.8 cm Rugen M Pro Work Phone: [facility] 250 DO Work Phone: 05-28-2021 14:13-0500 Body mass index (BMI) [Ratio] 34.87 kg/m2 Rugen M [place] Work Phone: [facility] 250 DO Work Phone: 05-28-2021 14:13-0500 Body surface area Derived from formula 2.27 m2 Rugen M Pro Work Phone: [facility] 250 DO Work Phone: 05-28-2021 14:13-0500 Body weight 110.22 kg Rugen M [place] Work Phone: [facility] 250 DO Work Phone: 05-28-2021 14:13-0500 Diastolic blood pressure 108 mm[Hg] Rugen M Pro Work Phone: [facility] 250 DO Work Phone: 05-28-2021 14:13-0500 Heart rate 71 /min Rugen Deysi [place] Work Phone: [facility] 250 DO Work Phone: 05-28-2021 14:13-0500 Systolic blood pressure 162 mm[Hg] Rugen M [place] Work Phone: [facility] 250 DO Work Phone: Encounters Encounter Date Encounter Type Care Provider Facility Start: 02-01-2024 End: 02-01-2024 ambulatory EHAB [facility] Start: 01-25-2024 End: 01-25-2024 ambulatory JASON FOUNTAIN Not Available Start: 01-16-2024 End: 01-16-2024 ambulatory JASON FOUNTAIN Not Available Start: 01-09-2024 End: 01-09-2024 ambulatory JASON FOUNTAIN Not Available Start: 12-13-2023 End: 12-13-2023 ambulatory JASON FOUNTAIN Not Available Start: 12-06-2023 End: 12-06-2023 ambulatory JASON FOUNTAIN Not Available Start: 11-29-2023 End: 11-29-2023 ambulatory JASON FOUNTAIN Not Available Start: 11-15-2023 End: 11-15-2023 ambulatory JASON RYANVELY Not Available Start: 11-09-2023 End: 11-09-2023 ambulatory SURYA Jo PRO Not Available Start: 11-07-2023 End: 11-07-2023 ambulatory DAVIDE OCAMPO V Not Available Start: 10-30-2023 End: 10-30-2023 ambulatory Davide Ocampo Facility:[facility] Start: 10-30-2023 End: 10-30-2023 Admission to same day surgery center MD Surya Mast Work Phone: [facility] [place] Start: 10-30-2023 End: 10-30-2023 ambulatory MD Surya Mast Work Phone: [facility] Work Phone: Start: 10-10-2023 End: 10-10-2023 ambulatory DAVIDE OCAMPO V Not Available Start: 08-31-2023 End: 08-31-2023 ambulatory MD Surya Mast Work Phone: [facility] Work Phone: Start: 08-31-2023 End: 08-31-2023 Patient encounter procedure MD Surya Mast Work Phone: [facility] Work Phone: Start: 08-31-2023 End: 08-31-2023 ambulatory Jagdeep Stiles II Facility:[facility] Start: 08-31-2023 End: 08-31-2023 ambulatory MD Surya Mast Work Phone: [facility] Work Phone: Start: 08-31-2023 End: 08-31-2023 Patient encounter procedure MD Surya Mast Work Phone: [facility] Start: 08-29-2023 Chart abstracting Jason pan EMERGENCY DEPARTMENT NURSE Work Phone: [facility] Start: 08-29-2023 End: 08-29-2023 Office outpatient visit 25 minutes Jason Fountain EMERGENCY DEPARTMENT NURSE Work Phone: [facility] Comment on above: Bronchitis (Primary Dx); Left non-suppurative otitis media Start: 08-29-2023 End: 08-29-2023 ambulatory JASON FOUNTAIN Not Available Start: 08-07-2023 End: 08-07-2023 ambulatory SURYA MAST Not Available Start: 08-02-2023 (URG) Urgent Care Visit Leidy paniagua [facility] [place] Start: 08-02-2023 End: 08-02-2023 ambulatory Leidy Jamison Other [employer] Other Start: 08-02-2023 Telephone encounter Leidy [facility] [place] Start: 08-02-2023 End: 08-02-2023 Patient encounter procedure MD Surya Mast Work Phone: [facility]- Start: 07-19-2023 End: 07-19-2023 ambulatory IFEANYI B VINH Not Available Start: 07-06-2023 End: 07-06-2023 ambulatory IFEANYI B VINH Not Available Start: 07-05-2023 End: 07-05-2023 ambulatory JASON FOUNTAIN Not Available Start: 06-27-2023 End: 06-27-2023 ambulatory JASON FOUNTAIN Not Available Start: 05-10-2023 End: 05-10-2023 ambulatory EDISON [facility] Start: 04-19-2023 End: 04-19-2023 [facility] Start: 09-08-2022 End: 09-09-[address] SURYA MAST Facility:[facility] Start: 06-06-2022 End: 06-07-[address] SURYA MAST Facility:[facility] Start: 03-18-2022 End: 03-19-[address] JUDI WILSON Facility:[facility] Start: 03-14-2022 End: 03-15-[address] JUDI WILSON Facility:[facility] Start: 02-16-2022 End: 02-17-[address] SURYA MAST Facility:[facility] Start: 01-27-2022 End: 01-27-2022 ambulatory FIORELLA BRONSON Facility:[facility] Start: 06-18-2021 Office outpatient vi sit 15 minutes Rugen M [place] Work Phone: [facility] 250 DO Work Phone: Start: 06-16-2021 NURSEVST, Provider: KAREN MORRIS [facility]UR[facility] OFFICIAL 1,[id number], Status: Pen, Time: 1:00 PM Rugen M [place] Work Phone: [facility] 250 DO Work Phone: Start: 06-14-2021 Chart Update Rugen M [place] Work Phone: [facility] 250 DO Work Phone: Start: 05-28-2021 Office consultation new/estab patient 60 min Rugen M [place] Work Phone: [facility] 250 DO Work Phone: Start: 05-28-2021 Patient encounter procedure Rugen M [place] Work Phone: [facility] 250 DO Work Phone: Start: 08-30-2016 End: 08-31-2016 Ambulatory DEFAULT PHYSICIAN Facility:[facility] Procedures Date Procedure Procedure Detail Performing Clinician Start: 10-30-2023 Colonoscopy MD Surya Cuevas lda Work Phone: Start: 08-31-2023 Pelvis X-ray MD Surya Cuevas lda Work Phone: Start: 08-31-2023 X-ray of both knees MD Surya Mast Work Phone: Appendectomy Rugen M [place] Work Phone: Coronary artery bypa ss graft Rugen M [place] Work Phone: Hernia repair Surya Mast Work Phone: History of coronary artery bypass grafting S/P CABG (coronary artery bypass graft) Surya Mast Work Phone: Lithotripsy Surya Mast Work Phone: Operative procedure on knee Surya Mast Work Phone: NEGATED: Highlighted row has not occurred! Total colonoscopy Surya Mast Work Phone: Plan of Treatment Date Care Activity Detail Author Start: 07-18-2024 Glaucoma screening Diabetes: R etinopathy Screening [facility] Start: 05-21-2024 Pneumococcal Vaccine : 65+ Years (1 - PCV) Pneumococcal Vaccine: 65+ Years (1 - PCV) [facility] Comment on above: Postponed from 04/24 (Other Patient Reasons) Start: 01-14-2024 Influenza vaccination Influenza Vacc ine (#1) [facility] Comment on above: Postponed from 03/17 (Other Patient Reasons) Start: 10-30-2023 [facility] Start: 10-04-2023 Hemoglobin A1c measurement Diabetes: Hemoglobin A1C [facility] Start: 09-04-2023 End: 09-04-2023 Patient encounter procedure 09/04/2023 2:30 PM EST Office Visit [facility] [address] [facility] [address] [place] [address] Surya Mast MD [address] [place] [address] [facility] Start: 08-29-2023 End: 08-29-2023 Patient encounter procedure 08/29/2023 11:30 AM EST Office Visit [facility] [address] [facility] [address] [place] [address] Jason Fountain NP [address] [place] [address] [facility] Start: 01-21-2022 Screening for malign ant neoplasm of colon [facility] Start: 12-29-2021 FUV, Provider: Juanito Peterson, Status: Pen, Time: 1:40 PM FUV, Provider: Juanito Peterson, Status: Pen, Time: 1:40 PM [facility] 250 DO Work Phone: Start: 08-25-2021 FUV, Provider: Juanito Peterson, Status: Pen, Time: 1:30 PM FUV, Provider: Juanito Peterson, Status: Pen, Time: 1:30 PM [facility] 250 DO Work Phone: Start: 06-16-2021 NURSEVST, Provider: KAREN MORRIS [facility] OFFICIAL 1,[id number], Status: Pen, Time: 1:00 PM NURSEVST, Provider: KAREN MORRIS [facility] OFFICIAL 1,[id number], Status: Pen, Time: 1:00 PM [facility] 250 DO Work Phone: Start: 1955 Screening for malign ant neoplasm of colon [facility] Patient Education Colonoscopy (D C) Colon Polypectomy (DC) [facility] Work Phone: Patient referral [facility] Work Phone: Immunizations Immunization Date Immunization Notes Care Provider Ousmane uribe 11-11-2020 Pfizer-Bio[employer] COVI D-19 Vacc 30 MCG/0.3ML Intramuscular Suspension Rugen M [place] Work Phone: [facility] 250 DO Work Phone: 10-21-2020 Pfizer-[employer] COVI D-19 Vacc 30 MCG/0.3ML Intramuscular Suspension Rugen M Pro Work Phone: [facility] 250 DO Work Phone: Payers Date Payer Category Payer Self-pay [id number] 2017 Unknown 1959 Unknown [id number] 1953 Unknown [id number] 2.16.84 0.1.281259.3.579.2.593 1953 Unknown [id number] 2.16.84 0.1.844986.3.579.2.593 1953 Unknown [id number] 2.16.84 0.1.373160.3.579.2.593 1953 Unknown [id number] 2.16.84 0.1.929742.3.579.2.593 1953 Unknown [id number] 2.16.84 0.1.795749.3.579.2.593 1953 Unknown [id number] 2.16.84 0.1.344793.3.579.2.593 1953 Unknown [id number] 2.16.84 0.1.193163.3.579.2.593 1953 Unknown [id number] 2.16.84 0.1.571157.3.579.2.1259 1953 Unknown [id number] 2.16.84 0.1.536511.3.579.2.1259 1953 Unknown [id number] 2.16.84 0.1.103080.3.579.2.1259 1953 Unknown [id number] 2.16.84 0.1.335559.3.579.2.1259 1953 Unknown [id number] 2.16.84 0.1.285331.3.579.2.1259 1953 Unknown [id number] 2.16.84 0.1.868904.3.579.2.1259 1953 Unknown [id number] 2.16.84 0.1.926839.3.579.2.1259 1953 Unknown [id number] 2.16.84 0.1.858922.3.579.2.1259 1953 Unknown [id number] 2.16.84 0.1.895719.3.579.2.1259 1953 Unknown [id number] 2.16.84 0.1.064514.3.579.2.1259 1953 Unknown [id number] 2.16.84 0.1.003151.3.579.2.1259 1953 Unknown [id number] 2.16.84 0.1.226870.3.579.2.1259 1953 Unknown [id number] 2.16.840 .1.117506.3.579.2.1259 1953 Unknown [id number] 2.16.840 .1.963458.3.579.2.1259 1953 Unknown [id number] 2.16.840 .1.782948.3.579.2.1259 1953 Unknown [id number] 2.16.840 .1.706127.3.579.2.1259 Medicare [id number] Unknown MMO [id number] Unknown [id number] 2.16.8 40.1.935100.3.579.2.531 Unknown [id number] 2.16.8 40.1.856709.3.579.2.531 Worker's Compensation [id number] Social History Date Type Detail Facility Start: 08-07-2023 End: 08-29-2023 No illicit drug use No illicit drug use [place] [address] DO Work Phone: Comment on above: Quit 43 years ago; Start: 08-07-2023 End: 08-29-2023 Sex Assigned At [facility] [employer] Other Start: 02-14-2023 Tobacco smoking status MAIS Never smoked tobacco [facility] Start: 02-14-2023 Tobacco use and exposure Smokeless tobacco non-user [facility] Start: 08-07-2023 End: 08-29-2023 Alcohol intake Lifetime non-drinker (finding) [facility] Start: 1955 Sex Assigned At Not on file [facility] Start: 08-02-2023 End: 10-30-2023 Tobacco smoking status NHIS Ex-smoker (finding) [facility] Start: 1955 Sex Assigned At Male [facility] Goals Date Patient Goal Desired Activity /State Clinical Notes 05-27-2021 to 02-01-2024 Jason Fountain, EMERGENCY DEPARTMENT NURSE - 08/29/2023 11:30 AM EST Note Date & Type Note Facility 02-01-2024 Note [facility] Cardiology Clinic Note Chief Complaint: HTN control, lowest the past couple weeks have been 140. Took his meds at 9:30am this morning. HPI: Tawanda Jurado is a 68 y.o. male With a history of refractory hypertension His blood pressure has been improving since her last saw him. However for the past several weeks he has noticed readings above 160 frequently. Apparently he has had readings in the 220-240 systolic range. Conversely, once or twice at work he has noticed that his blood pressure in the morning is as low as 75 systolic; he becomes significantly lightheaded and dizzy. We reviewed his social habits; he drinks a cup of coffee a day as well as of 1-2 iced teas. He denies alcoholic beverages. He denies other caffeinated beverages. He only takes Tylenol for pain. He avoids nonsteroidal anti-inflammatory drugs. He denies illicit drug use. He states that he has not been checked for sleep apnea recently. He denies snoring. He does have a family history of difficult to control blood pressure in both his father and brother. Cardiology ROS: Review of Systems Neurological: Positive for headaches. All other systems reviewed and are negative. Cardiology ROS: Past Medical History He has a past medical history of Coronary artery disease and Hypertension. Surgical History He has a past surgical history that includes Coronary artery bypass graft; Cardiac catheterization; Hand tendon surgery; Appendectomy; Knee Arthroplasty; and Hernia repair. Social History He reports that he has quit smoking. His smoking use included cigarettes. He has never used smokeless tobacco. He reports that he does not currently use alcohol. No history on file for drug use. Family History Family History Problem Relation Name Age of Onset Coronary artery disease Mother Coronary artery disease Father Coronary artery disease Brother ALS Brother Stroke Brother Allergies Patient has no known allergies. Medications Current Outpatient Medications: aspirin 81 mg chewable tablet, Chew 81 mg in the morning., Disp: , Rfl: atorvastatin (Lipitor) 80 mg tablet, Take 80 mg by mouth at bedtime., Disp: , Rfl: carvedilol (Coreg) 25 mg tablet, Take 1 tablet (25 mg) by mouth in the morning and at bedtime., Disp: 180 tablet, Rfl: 3 cloNIDine (Catapres) 0.2 mg tablet, Take 0.3 mg by mouth twice a day., Disp: , Rfl: dapagliflozin (Farxiga) 10 mg, Take 1 tablet by mouth in the morning., Disp: , Rfl: furosemide (Lasix) 40 mg tablet, Take 1 tablet (40 mg) by mouth in the morning., Disp: 90 tablet, Rfl: 3 isosorbide mononitrate ER (Imdur) 120 mg 24 hr tablet, Take 120 mg by mouth in the evening., Disp: , Rfl: lisinopril 40 mg tablet, Take 1 tablet by mouth in the morning., Disp: , Rfl: metFORMIN (Glucophage) 500 mg tablet, TAKE 1 TABLET BY MOUTH WITH BREAKFAST AND WITH EVENING MEAL, Disp: 60 tablet, Rfl: 0 semaglutide (Rybelsus) 7 mg tablet, Take 1 tablet by mouth in the morning., Disp: , Rfl: spironolactone (Aldactone) 25 mg tablet, Take 1 tablet (25 mg) by mouth in the morning., Disp: 90 tablet, Rfl: 3 terazosin (Hytrin) 2 mg capsule, Take 3 capsules (6 mg) by mouth at bedtime., Disp: 270 capsule, Rfl: 3 Last Recorded Vitals BP (!) 194/100 (BP Location: Left arm, Patient Position: Sitting, BP Cuff Size: Large adult) Pulse 64 Resp 18 Ht 1.778 m (5' 10 ) Wt 112 kg (246 lb 3.2 oz) SpO2 99% BMI 35.33 kg/m??? Physical Examination: GENERAL: alert and oriented x3, well developed, in no acute distress. HEAD: atraumatic, normocephalic. EYES: TAMARA, EOMI. NECK: trachea midline, no JVD present, no carotid bruits present. CARDIAC: S1, S2 present. RRR. No murmur, rubs, or gallops. RESPIRATORY: CTAB, no increased effort of breathing, no rales, rhonchi, or wheezing. ABDOMEN: soft, nontender, nondistended. EXTREMITIES: no lower extremity edema, peripheral pulses are 2+ bilaterally. No rash/skin discoloration present. NEURO: strength/sensation equal and symmetric in bilateral upper and lower extremities. PSYCH: appropriate mood, affect, and judgement. Investigations: LABS 03/14/2022 S.cr 1.66, eGFR 41 He underwent bypass surgery on 06/03/2016: 1. RIOS to LAD. 2. Radial artery from aorta to second obtuse marginal. 3. Reverse saphenous vein from aorta to third obtuse marginal. 4. Reverse saphenous vein from aorta to first diagonal. 5. Reverse saphenous vein from aorta to posterior descending. Renal Dopplers in the past have shown no significant renal artery stenosis Echocardiogram 06/01/2023 Global left ventricular systolic function is normal; EF 55 to 60%. The right ventricle is normal in size and systolic function. Biatrial enlargement. Normal diastolic function. Mild tricuspid regurgitation. Mildly elevated right-sided pressures. Mild pulmonic regurgitation. Assessment: Coronary artery disease h/o CABG Refractory HTN - responded to loop diureti (more content not included)... [facility] 08-29-2023 History of Present illness Narrative Subjective Patient ID: Tawanda Jurado is a 68 y.o. male who presents for low blood pressure. Tawanda is present today for low blood pressure. He takes his blood pressure regularly at home and they have been low for the last two weeks. BP is usually high. He has had a blood pressure 74/56 one day last week and others that wasn't over 100 but doesn't remember exact bp. States when bp is low it is when he is moving around a lot and then he gets lightheaded and dizzy. He is still taking coreg and Clonidine. Says he stopped taking metformin. Says he just got over Influenza A after being diagnosed 3 weeks ago but the cough has just came back and feels like its in his chest. URI This is a new problem. The current episode started 1 to 4 weeks ago. The problem has been gradually worsening. There has been no fever. Associated symptoms include congestion, coughing and sneezing. Associated symptoms comments: Dry cough. Treatments tried: Robitussin and Sudafed. The treatment provided no relief. Current Outpatient Medications on File Prior to Visit Medication Sig Dispense Refill ASPIRIN 81 MG chewable tablet Oral atorvastatin (Lipitor) 80 MG tablet TAKE 1 TABLET BY MOUTH IN THE MORNING 100 tablet 3 carvedilol (Coreg) 25 MG tablet Take 25 mg by mouth in the morning and 25 mg before bedtime. cloNIDine (Catapres) 0.2 MG tablet Take 1.5 tablets (0.3 mg) by mouth in the morning and 1.5 tablets (0.3 mg) before bedtime. 270 tablet 3 dapagliflozin (Farxiga) 10 MG Take 1 tablet (10 mg) by mouth in the morning. 100 tablet 3 furosemide (Lasix) 40 MG tablet Take 20 mg by mouth in the morning. isosorbide mononitrate ER (Imdur) 60 MG 24 hr tablet TAKE 1 TABLET BY MOUTH ONCE DAILY IN THE MORNING 100 tablet 3 lisinopril 40 MG tablet Take 1 tablet by mouth once daily 90 tablet 3 metFORMIN (Glucophage) 500 MG tablet every 12 (twelve) hours. semaglutide (Rybelsus) 3 MG tablet Take 3 mg by mouth in the morning. Take before meals. spironolactone (Aldactone) 25 MG tablet Take 25 mg by mouth in the morning. terazosin (Hytrin) 2 MG capsule Take 3 capsules (6 mg) by mouth at bedtime. 270 capsule 3 No current facility-administered medications on file prior to visit. No Known Allergies Social History Tobacco Use Smoking status: Never Smokeless tobacco: Never Substance Use Topics Alcohol use: Never Family History Problem Relation Name Age of Onset Hypertension Mother Hypertension Father Hypertension Brother Cancer Maternal Grandmother Cancer Sibling Hypertension Sibling Stroke Sibling Past Medical History: Diagnosis Date Chronic kidney disease (CKD), active medical management without dialysis, stage 3 (moderate) (HCC) (CMS/HCC) COVID positive pfizer immunized Diabetes mellitus (CMS/HCC) Hypertension (CMS/HCC) Myocardial infarction (CMS/HCC) CELESTINA (obstructive sleep apnea) Past Surgical History: Procedure Laterality Date APPENDECTOMY CORONARY ARTERY BYPASS GRAFT 2016 KNEE ARTHROSCOPY W/ ACL RECONSTRUCTION TENDON REPAIR lmf exploration w/ extensor UMBILICAL HERNIA REPAIR Visit Vitals Smoking Status Never Review of Systems HENT: Positive for congestion and sneezing. Respiratory: Positive for cough. Objective Physical Exam Vitals reviewed. Constitutional: Appearance: Normal appearance. HENT: Head: Normocephalic. Left Ear: Tympanic membrane is erythematous. Nose: Rhinorrhea present. Mouth/Throat: Mouth: Mucous membranes are moist. Pharynx: Oropharynx is clear. Posterior oropharyngeal erythema present. Cardiovascular: Rate and Rhythm: Regular rhythm. Pulmonary: Effort: Pulmonary effort is normal. Comments: Harsh lung sounds Skin: General: Skin is warm and dry. Neurological: General: No focal deficit present. Mental Status: He is alert and oriented to person, place, and time. Psychiatric: Mood and Affect: Mood normal. Behavior: Behavior normal. Assessment/Plan Diagnoses and all orders for this visit: Bronchitis - amoxicillin-clavulanate (Augmentin) 875-125 MG tablet; Take 1 tablet (875 mg) by mouth in the morning and 1 tablet (875 mg) before bedtime. Do all this for 10 days. - methylPREDNISolone (Medrol Dospak) 4 MG tablets; Follow schedule on package instructions Start the above medications as directed. Advised of potential side effects of the steroid. Patient is to take the steroid with food. Can take Tessalon Perles prn for cough. Increase water intake, get plenty of rest. Can take Tylenol prn for any discomfort or fever. No other anti-inflammatories while on steroid. Cough into elbow. Wash hands often. Advised patient that cough can linger with bronchitis. Follow up in our office if no improvement in one week. Left non-suppurative otitis media Take ATB as ordered. Get plenty of rest. documented in this encounter [facility] 08-02-2023 Evaluation note Encounter Date Diagnosis Assessment Notes Jul, Contact with and (suspected) exposure to covid-19 (ICD-10 - Z20.822) Jul, Influenza A (ICD-10 - J10.1) Patient left the urgent care prior to receiving the results of his PCR COVID, influenza, RSV testing. He was not seen by the provider. Will attempt to notify patient of his results. [facility] Other 10-25-2023 NotePatient here c/o hypotension and dizziness. He fell the other day. BMP was done yesterday. He was re-started on furosemide and spironolactone a few weeks ago by Dr. Wilson. BP this morning when he woke up was 180/102, before medications. He takes morning meds around 9am and then about 1 hour later he's been getting dizzy and near syncope. Still denies chest pain and SOB. Review of Systems Cardiovascular: Positive for near-syncope and syncope. Musculoskeletal: Positive for arthritis, falls and joint pain. Neurological: Positive for dizziness and light-headedness. All other systems reviewed and are negative.[facility] Chief Complaint: dizziness, syncope, low BP. HPI: Tawanda Jurado is a 68 y.o. male With history of coronary artery disease, refractory hypertension here in routine follow-up Update 04/19/2023: The patient stopped taking his diuretics as they made him urinate at night. Subsequently, his blood pressures have been elevated. He is asymptomatic from a heart standpoint; specifically, he denies chest pain, shortness of breath, orthopnea or paroxysmal external dyspnea. He has had no significant lower extremity edema. Update 05/10/2023 -Since last seen he has resumed taking his diuretics as directed by Dr. Wilson. He is taking both lasix 40mg daily and spironolactone 25mg daily. -About a week ago he had an episode where he got up in the middle of the night to use the bathroom. He briefly sat on the edge of the bed and he took 2 steps then he passed out. He doesn't recall how long he was out for but denies any injuries. He did not report to the ER. Unsure of his BP during this time. -2 days ago he was at work and his BP dropped to 99/?? Within an hour after taking his medications. -Before his BP was running 200s/100-130 - he resumed his water pills his BP has been running 150s Cardiology ROS: ROS Cardiovascular: Positive for near-syncope and syncope. Musculoskeletal: Positive for arthritis, falls and joint pain. Neurological: Positive for dizziness and light-headedness. All other systems reviewed and are negative. Past Medical History He has a past medical history of Coronary artery disease and Hypertension. Surgical History He has a past surgical history that includes Coronary artery bypass graft; Cardiac catheterization; Hand tendon surgery; Appendectomy; Knee Arthroplasty; and Hernia repair. Social History He reports that he has quit smoking. His smoking use included cigarettes. He has never used smokeless tobacco. He reports that he does not currently use alcohol. No history on file for drug use. Family History Family History Problem Relation Name Age of Onset Coronary artery disease Mother Coronary artery disease Father Coronary artery disease Brother ALS Brother Stroke Brother Allergies Patient has no known allergies. Medications Current Outpatient Medications: aspirin 81 mg chewable tablet, Chew 1 tablet every day by oral route., Disp: , Rfl: atorvastatin (Lipitor) 80 mg tablet, Take 80 mg by mouth at bedtime., Disp: , Rfl: carvedilol (Coreg) 25 mg tablet, Take 1 tablet by mouth twice daily, Disp: 180 tablet, Rfl: 0 cloNIDine (Catapres) 0.2 mg tablet, Take 0.3 mg by mouth twice a day., Disp: , Rfl: dapagliflozin (Farxiga) 10 mg, Take 1 tablet by mouth in the morning., Disp: , Rfl: furosemide (Lasix) 40 mg tablet, Take 1 tablet (40 mg) by mouth in the morning and at bedtime. (Patient not taking: Reported on 04/19/2023), Disp: 60 tablet, Rfl: 2 furosemide (Lasix) 40 mg tablet, Take 1 tablet (40 mg) by mouth in the morning., Disp: 90 tablet, Rfl: 3 isosorbide mononitrate ER (Imdur) 60 mg 24 hr tablet, TAKE 1 TABLET BY MOUTH ONCE DAILY NEED AN APPT. FOR FURTHER REFILLS, Disp: , Rfl: lisinopril 40 mg tablet, Take 1 tablet by mouth in the morning., Disp: , Rfl: metFORMIN (Glucophage) 500 mg tablet, Take 1 tablet (500 mg) by mouth with breakfast and with evening meal., Disp: 60 tablet, Rfl: 11 spironolactone (Aldactone) 25 mg tablet, Take 1 tablet (25 mg) by mouth in the morning. (Patient not taking: Reported on 04/19/2023), Disp: 30 tablet, Rfl: 3 spironolactone (Aldactone) 25 mg tablet, Take 1 tablet (25 mg) by mouth in the morning., Disp: 90 tablet, Rfl: 3 terazosin (Hytrin) 2 mg capsule, TAKE 3 CAPSULES BY MOUTH AT BEDTIME, Disp: 60 capsule, Rfl: 0 Last Recorded Vitals Ht 1.778 m (5' 10 ) Wt 108 kg (237 lb) BMI 34.01 kg/m??? Physical Examination: GENERAL: alert and oriented x3, well developed, in no acute distress. HEAD: atraumatic, normocephalic. EYES: TAMARA, EOMI. NECK: trachea midline, no JVD present, no carotid bruits present. CARDIAC: S1, S2 present. RRR. No murmur, rubs, or gallops. RESPIRATORY: CTAB, no increased effort of breathing, no rales, rhonchi, or wheezing. ABDOMEN: soft, nontender, nondistended. EXTREMITIES: no lower extremity edema, peripheral pulses are 2+ bilaterally. No rash/skin discoloration present. NEURO: strength/sensation equal and symmetric in bilateral upper and lower extremities. PSYCH: appropriate mood, affect, and judgement. Investigations: LABS 03/14/2022 S.cr 1.66, eGFR 41 He underwent bypass surgery on 06/03/2016: 1. RIOS to LAD. 2. Radial artery from aorta to second obtuse marginal. 3. Reverse saphenous vein from aorta to third obtuse marginal. 4. Reverse saphenous vein from aorta to first diagonal. 5. Reverse saphenous vein from aorta to posterior descending. Carotid US 2016 ANNY 0-15% stenosis LICA 50-79% stenosis Assessmen (more content not included)...[facility] Chief Complaint: Patient here for 1 year follow up CAD and hypertension. Had labs in Aug 2022. Denies chest pain, SOB, and palpitations. Says today at home before his apt his BP was 219/119. Sometimes will run around 150 systolic. HPI: Tawanda Jurado is a 67 y.o. male With history of coronary artery disease, refractory hypertension here in routine follow-up Update 04/19/2023: The patient stopped taking his diuretics as they made him urinate at night. Subsequently, his blood pressures have been elevated. He is asymptomatic from a heart standpoint; specifically, he denies chest pain, shortness of breath, orthopnea or paroxysmal external dyspnea. He has had no significant lower extremity edema. Cardiology ROS: Review of Systems Musculoskeletal: Positive for arthritis and joint pain. Neurological: Positive for light-headedness. All other systems reviewed and are negative. Past Medical History He has a past medical history of Coronary artery disease and Hypertension. Surgical History He has a past surgical history that includes Coronary artery bypass graft; Cardiac catheterization; Hand tendon surgery; Appendectomy; Knee Arthroplasty; and Hernia repair. Social History He reports that he has quit smoking. His smoking use included cigarettes. He has never used smokeless tobacco. He reports that he does not currently use alcohol. No history on file for drug use. Family History Family History Problem Relation Name Age of Onset Coronary artery disease Mother Coronary artery disease Father Coronary artery disease Brother ALS Brother Stroke Brother Allergies Patient has no known allergies. Medications Current Outpatient Medications: aspirin 81 mg chewable tablet, Chew 1 tablet every day by oral route., Disp: , Rfl: atorvastatin (Lipitor) 80 mg tablet, Take 80 mg by mouth at bedtime., Disp: , Rfl: carvedilol (Coreg) 25 mg tablet, Take 1 tablet by mouth twice daily, Disp: 180 tablet, Rfl: 0 dapagliflozin (Farxiga) 10 mg, Take 1 tablet by mouth in the morning., Disp: , Rfl: furosemide (Lasix) 40 mg tablet, Take 1 tablet (40 mg) by mouth in the morning and at bedtime., Disp: 60 tablet, Rfl: 2 isosorbide mononitrate ER (Imdur) 60 mg 24 hr tablet, TAKE 1 TABLET BY MOUTH ONCE DAILY NEED AN APPT. FOR FURTHER REFILLS, Disp: , Rfl: lisinopril 40 mg tablet, Take 1 tablet by mouth in the morning., Disp: , Rfl: metFORMIN (Glucophage) 500 mg tablet, Take 1 tablet (500 mg) by mouth with breakfast and with evening meal., Disp: 60 tablet, Rfl: 11 spironolactone (Aldactone) 25 mg tablet, Take 1 tablet (25 mg) by mouth in the morning., Disp: 30 tablet, Rfl: 3 terazosin (Hytrin) 2 mg capsule, TAKE 3 CAPSULES BY MOUTH AT BEDTIME, Disp: 60 capsule, Rfl: 0 Last Recorded Vitals BP (!) 193/101 (BP Location: Right arm, Patient Position: Sitting) Pulse 74 Ht 1.778 m (5' 10 ) Wt 111 kg (245 lb) SpO2 97% BMI 35.15 kg/m??? Physical Examination: GENERAL: alert and oriented x3, well developed, in no acute distress. HEAD: atraumatic, normocephalic. EYES: TAMARA, EOMI. NECK: trachea midline, no JVD present, no carotid bruits present. CARDIAC: S1, S2 present. RRR. No murmur, rubs, or gallops. RESPIRATORY: CTAB, no increased effort of breathing, no rales, rhonchi, or wheezing. ABDOMEN: soft, nontender, nondistended. EXTREMITIES: no lower extremity edema, peripheral pulses are 2+ bilaterally. No rash/skin discoloration present. NEURO: strength/sensation equal and symmetric in bilateral upper and lower extremities. PSYCH: appropriate mood, affect, and judgement. Investigations: LABS 03/14/2022 S.cr 1.66, eGFR 41 He underwent bypass surgery on 06/03/2016: 1. RIOS to LAD. 2. Radial artery from aorta to second obtuse marginal. 3. Reverse saphenous vein from aorta to third obtuse marginal. 4. Reverse saphenous vein from aorta to first diagonal. 5. Reverse saphenous vein from aorta to posterior descending. Assessment: Coronary artery disease h/o CABG Refractory HTN - responded to loop diuretic CKD CELESTINA Obesity Palpitations Plan: Continue optimal medical therapy for coronary artery disease including aspirin, high intensity statin therapy, a beta-yenni and an SGLT2 inhibitor For resistant hypertension, the patient must be on diuretics; I recommended he restart his loop diuretic as well as spironolactone. He may need introduction of chlorthalidone. I explained the rationale behind diuretic therapy. In order to decrease nocturnal urination, I have asked him to take Lasix 40 mg in the morning along with spironolactone in the morning. He will need a basic metabolic panel 1 week later. He is to monitor his blood pressure at home and to keep a log If he has any symptoms with elevated blood pressures, he knows to come into the emergency room. Follow-up in 3 to 4 months Judi Wilson MD, MPH, FACC, [facility] [place] (more content not included)...[facility] History of Present illness NarrativePatient returns in follow-up of recent adjustments in blood pressure medication. With the addition of spironolactone to hydrochlorothiazide he now has good control. Advised him that ideally we shouldhave him off clonidine because of this I recommend he cut the dose from 0.2 mg daily to 0.1 mg daily. We will reconvene in the spring and make further adjustments. I cannot elicit from him any other c omplaints. Blood pressure appears to be well controlled and he has no symptoms of coronary disease such as those that preceded his original diagnosis and subsequent bypass surgery. Likewise his lipids and diabetes appear to be well controlled. As before the merits of diet lifestyle modification exercise and weight loss were reviewed with him.-[facility] [employer] DO Work Phone: [phone] 115-409611-11-2021 History of Present illness Narrative* Patient is referred by his primary care physician for difficult to control blood pressure. He is individual who has a history of coronary disease with bypass surgery. He is having no symptoms such asthose that preceded his original diagnosis. Risk factors of diabetes and hyperlipidemia appear to be adequately addressed and treated but blood pressure control could be improved upon. We note that he was prescribed hydrochlorothiazide yesterday but did not start taking it yet and he was encouragedto do so but also add spironolactone 25 mg a day. Will recheck blood pressure in 2 weeks my hope isto eliminate clonidine. He also wishes to avoid amlodipine because of side effects. * I cannot elicit any cardiac symptomatology. Because of this we suggest therapeutic changes as above. We did advocate diet weight loss and he will do the best he can. [facility] [employer] DO Work Phone: Evaluation noteNo [address] [employer] Other Evaluation note* Diagnosis Bronchitis- Primary Bronchitis, not specified as acute or chronic Left non-suppurative otitis media Nonsuppurative otitis media, not specified as acute or chronic documented [facility] this encounter [facility] Diagnosis Onset Date Resolution Status Bilateral primary osteoarthritis of knee acute Knee pain, left acute Knee pain, right acute [facility] Work Phone: History general Narrative - Reported* Type Description Date Medical History HTN Medical History Arthritis Medical History Diabetes Medical History Hx of PR Medical History Hyperlipidemia Medical History Coronary artery disease Surgical History Appendectomy Surgical History Arthroscopy, bilateral knees Surgical History Hernia Surgical History Left hand Surgical History heart bypass graft x 6 Surgical History cataract removal Hospitalization History See above Dezide Other Summary Purpose Family History No Family History Records FoundUnknown Family Member Name Dates Details Heart problem: Father, Broth er Status:Active Family history of malignant neoplasm of bone: Brother(V16.8, Z80.8) Status:Active Unknown Family Member Name Dates Details Heart problem: Father, Broth er Status:Active Family history of malignant neoplasm of bone: Brother(V16.8, Z80.8) Status:Active Unknown Family Member Name Dates Details Family history of malignant neoplasm of bone: Brother(V16.8, Z80.8) Status:Active Heart problem: Father, Broth er Status:Active Unknown Family Member Name Dates Details Heart problem: Father, Broth er Status:Active Family history of malignant neoplasm of bone: Brother(V16.8, Z80.8) Status:Active Relationship Condition Age at Onset Recorded Date/T evelyn father Heart disease Unknown Unknown family member Family history of other condition Unknow n Not Specified Heart disease Unknown Relationship Condition Age at Onset Recorded Date/T evleyn father Heart disease Unknown Unknown family member Family history of other condition Unknow n Not Specified Heart disease Unknown brother Malignant neoplasm Unknown brother Cerebrovascular accident (CVA) Unknown brother Amyotrophic lateral sclerosis Unknown Advance Directives No Advanced Directives Records Found Advance Directive Response Recorded Date/ Time Advance Directives No June 19, 2017 10:54am Advance Directive Response Recorded Date/ Time Advance Directives No June 19, 2017 11:54am Chief Complaint TAWANDA JURADO is being seen for New Patient.TAWANDA JURADO is being seen for New Patient.TAWANDA JURADO is being seen for hypertension. Chief Complaint and Reason for Visit Chief Complaint Cough, Body Aches, C hest Congestion M25.561 - Pain in right knee M25.562 - Pain in lef NEW TEE KNEE PAIN NX Reason for Visit Bilateral primary os teoarthritis of knee Knee pain, left Knee pain, right Chief Complaint Cough, Body Aches, C hest Congestion M25.562 M25.561 NEW TEE KNEE PAIN NX Reason for Visit Bilateral primary os teoarthritis of knee Knee pain, left Knee pain, right Chief Complaint Cough, Body Aches, C hest Congestion M25.562 M25.561 NEW TEE KNEE PAIN NX Positive Cologuard Reason for Visit Bilateral primary os teoarthritis of knee Knee pain, left Knee pain, right Additional Source Comments (unrecognized sect ion and content) No Status Records FoundNo Status Records FoundNo Status Records FoundNo Status Records FoundNo Status Records FoundNo Status Records Found INFORMATION SOURCE (unrecogn ized section and content) DATE CREATED AUTHOR 01/09/2018 [facility] DATE CREATED AUTHOR AUTHOR'S ORGANIZ ATION 06/20/2021 [employer] DATE CREATED AUTHOR AUTHOR'S ORGANIZ ATION 09/13/2022 [facility] DATE CREATED AUTHOR AUTHOR'S ORGANIZ ATION 12/09/2023 [facility] DATE CREATED AUTHOR AUTHOR'S ORGANIZ ATION 01/31/2024 [facility] EPIC DATE CREATED AUTHOR AUTHOR'S ORGANIZ ATION 02/05/2024 [facility] REASON FOR VISIT (unrecogniz ed section and content) COUGH, BODY ACHES, CHEST CON GESTIONNo Information Care Teams (unrecognized sec tion and content) [employer] Relationship Specialty Start Date End Date Surya Mast MD [address] [id number] PCP - [place] [employer] 10/15/20 Surya Mast MD [address] [address] PCP - General Family Medicine 11/22/22 [employer] Relationship Specialty Start Date End Date Surya Mast MD [address] [address] PCP - [employer] 10/15/20 Surya Mast MD [address] [address] PCP - General Family Medicine 11/22/22 Team Status: Active Member Role Status Dates Surya Mast MD Primary Care Provider Active Team Status: Inactive Member Role Status Dates SLIME Penny Attending Provider Active S tart: August 02, 2023 End: August 02, 2023 Team Status: Active Member Role Status Dates Surya Mast MD Primary Care Provider Active S tart: August 31, 2023 Jagdeep Stiles II, MD Attending Provider Active Start: August 31, 2023 Team Status: Inactive Member Role Status Dates Surya Mast MD Primary Care Provider Active S tart: August 31, 2023 End: August 31, 2023 Jagdeep Stiles II, MD Attending Provider Active Start: August 31, 2023 End: August 31, 2023 Team Status: Inactive Member Role Status Watson Mast MD Primary Care Provider Active S tart: October 30, 2023 End: October 30, 2023 Davide Ocampo MD Attending Provider Active Sta rt: October 30, 2023 End: October 30, 2023 Goals (unrecognized section and content) Goals may be documented in a n alternate section FOR RECORDS PERTAINING TO PATIENTS WHO ARE OR HAVE BEEN ENROLLED IN A CHEMICAL DEPENDENCY/SUBSTANCEABUSE PROGRAM, SOME INFORMATION MAY BE OMITTED. This clinical summary was aggregated from multiple sources. Caution should be exercised in using it in the provision of clinical care. This summary normalizes information from multiple sources, and as a consequence, information in this document may materially change the coding, format and clinical context of patient data. In addition, data may be omitted in some cases. CLINICAL DECISIONS SHOULD BE BASED ON THE PRIMARY CLINICAL RECORDS. [employer] provides no warranty or guarantee of the accuracy or completeness of information in this document.
[2024-02-12 12:14] LABS: Anion Gap 13.3; Carbon Dioxide 28.9 mmol/L (21.0-32.0); Chloride 103 mmol/L (98-107); Estimated GFR (African America 51 (>=60); Estimated GFR (Non-African Ame 42 (>=60); Glucose 229 mg/dL (74-106); Potassium 4.2 mmol/L (3.5-5.1); Sodium 141 mmol/L (136-145)
== END 2024-02-12 10:31 | disposition home or self-care (01) ==
LOC: LAB 10:34
PROVIDERS: PCP Family Medicine; Visit Provider Internal Medicine Interventional Cardiology
DX: I11.0 Hypertensive heart disease with heart failure (principal)
CPT/HCPCS: 36415; 80048; 85025

== ENCOUNTER 2024-02-19 10:04 | Outpatient (OUT) | payer BC, SELFPAY ==
--- OUTSIDE RECORDS SUMMARY | 2024-02-19 10:22 | XMS_ITS | CCD ---
Author Organization [facility] CliniSymt Care Team Providers Care Molecular Technologist Name Role Phone PHYSICIAN, DEFAULT Unavailable Unavailable PHYSICIAN, DEFAULT Unavailable Unavailable NAHUN JACKSON Unavailable Unavailable Pro, Surya Jo Unavailable Unavailable Unavailable FIORELLA BRONSON [...] Unavailable Surya Mast MD Primary Care Provider MD Surya Mast Primary Care Provider [phone] MD Jagdeep Stiles II Attending Provider MD Surya Mast Primary Care Provider [phone] MD Jagdeep Stiles II Attending Provider [phone] MD Davide Ocampo Attending Provider [phone] Davide Ocampo Admitting Unavailable Davide Ocampo Attending Unavailable Surya Mast Primary Care Unavailable Jagdeep Stiles II Admitting UnavailJagdeep Gong II Attending UnavailSurya Denis Primary Care Unavailable JUDI WILSON Attending Unavailable EDISON HOPPER Attending Unavailable JUDI WILSON Attending Unavailable IFEANYI JUSTICE Attending Unavailable PANDA, JASON Jo Referring Unavailable PRO, SURYA Jo Attending Unavailable PANDA, JASON Jo Attending Unavailable DAVIDE SUN Attending Unavailable SURYA MAST Referring Unavailable DAVIDE SUN Attending Unavailable PRO, SURYA Jo Attending Unavailable PANDA, JASON Jo Attending Unavailable PANDA, JASON Jo Attending Unavailable PANDA, JASON Jo Attending Unavailable PANDA, JASON Jo Attending Unavailable PANDA, JASON Jo Attending Unavailable PANDA, JASON M Attending Unavailable PANDA, JASON M Attending Unavailable PANDA, JASON M Attending Unavailable PANDA, JASON Jo Attending Unavailable PANDA, JASON Jo Attending Unavailable IFEANYI JUSTICE Attending Unavailable PANDA, JASON Jo Referring Unavailable Medications Current Medications Medication Drug Class(es) Dates Sig (Normalized) Sig (Original) [id number] actuat albuterol 0.09 mg/actuat metered dose [...] (Lipitor) 80 MG tablet Indications: Atherosclerosis of [place] coronary artery with angina pectoris, unspecified whether [place] or transplanted heart (CMS/[facility]) TAKE 1 TABLET BY MOUTH IN THE [...] unspecified vessel or lesion type, unspecified whether [place] or transplanted heart (CMS/HCC) Take 1 tablet [...] gel (2 sources) Nonsteroidal Anti-inflammatory Drug Start: 02-15-2024 Diclofenac Sodium Active 2 GM TOPICAL as directed 1 30 February 15th, 2024 1:00am doxycycline monohydrate 100 mg oral capsule [...] 17-Jun-2020 DO Start : 10-Sep-2019 Active Isosorbide Gerry itrate ER Active lisinopril 40 mg oral [...] Start: 12-16-2019 take 1 capsule by mo uth once daily at bedtime Terazosin HCl - [...] [Coronary atherosclerosis of unspecified type of vessel, [place] or graft] Onset: 2 02-14-2023 Chronic Diabetes [...] 01-31-2022 Episodic Other aftercare (1 source) Other half-way (current) drug therapy; Translations: [OTH SHELTER CURRENT DRUG THERAPY] Onset: 01-31-2022 Episodic Other aftercare (1 source) 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 1955 M Date Provider Department Center 02/01/2024 271-JUDI WILSON CARD [facility] Family History Problem Relation Age of Onset Coronary artery disease Mother Coronary artery disease Father Coronary artery disease Brother ALS Brother Stroke Brother Family Status - Relation Status Age at Mother Father Brother Level of Service:18314 [place] OFFICE/OUTPATIENT ESTABLISHED MOD MDM 30 MIN Normal [facility] Glucose Glucometer (BldC) [M ass/Vol]Ordered By: Davide Ocampo on 10-30-2023 Glucose [Mass/Vol] 168 mg/dL [facility] Comment on above: Random Glucose Refer ence Range is dependent on time and content of last meal. Glucose of more than 200 mg/dL in a nonstressed, ambulatory subject supports the diagnosis of Diabetes Mellitus. Glucose Poct Glucometerson 0 10-30-2023 Commemt1 Glu2: Cleaned Meter Normal [facility] Comment on above: Result Comment: PERF ORMED BY: [facility] [place] [address] PATHOLOGIST COST ESTIMATING MANAGER HENOK YANEZ M.D. Performed By: #### G LULS #### Point of Care testing , Glucose [Mass/Vol] 168 mg/dL Normal [facility] Comment on above: Result Comment: [facility] Glucose Reference Range is dependent on time and content of last meal. Glucose of more than 200 mg/dL in a nonstressed, ambulatory subject supports the diagnosis of Diabetes Mellitus. Performed By: #### G LULS #### Point of Care testing , Ck 10-30-2023 L Specimen: Received: 10/30/23 Status: ROSALINDA Keane Num: [id number] Spec Type: Surgical Subm Dr: Davide Ocampo MD Tissues: A Colon Biopsy (POLYP AT 20 CM) Procedures: HE/2, Gross/Micro L4 Age/ Patient Sex Location Account Attending Physician Tawanda Jurado 68/M [place] [id number] Davide Ocampo MD SPEC NUM: [id number] RECD: 10/30/23 STATUS: ROSALINDA KEANE NUM: [id number] IZAIAH: 10/30/[address]: Davide Ocampo MD ENTERED: 10/30/23 [facility] DR: SPEC TYPE: Surgical DEPT: S ORDERED: HE/2, Gross/Micro L4 ORDERED: HE/2, Gross/Micro L4 Pathological Diagnosis Colon polyp biopsy at 20 cm: -Small tubular adenoma, removed Gross Description In formalin labeled polyp at 20 cm is one 0.6 x 0.4 x 0.2 cm piece of samuel-pink mucosa. Submitted entirely in A1. RG/CYC Clinical history: Positive Cologuard CPT Codes 54909 ---- ---- Specimen: [id number] Received: 10/30/23 Status: ROSALINDA Keane Num: [id number] Spec Type: Surgical Subm Dr: Davide Ocampo MD Tissues: A Colon Biopsy (POLYP AT 20 CM) Procedures: HE/2, Gross/Micro L4 ---- Patient: Tawanda Jruado SR [id number] (Continued) ---- Signed (signature on file) Tameka Lacey MD 11/01/23 1255 Normal [facility] No Panel InformationOrdered By: Davide Ocampo on 10-30-2023 Bedside Glucose Comment Glu2: cleaned meter [facility] XR knee BI 4Von 08-31-2023 XR knee BI 4V [address] [address] XRay Report Signed Patient: Tawanda Jurado SR MR#: [id number] : 1955 Acct:[id number] Age/Sex: 68 / M ADM Date: 08/31/23 [place] [facility] [place] Type[place] [facility] Attending Dr: Jagdeep Stiles II, MD Copies to: Jagdeep Stiles MD Ordering Provider: Jagdeep Stiles MD Date of Service: 08/31/23 XR/XR pelvis 1-2V: M25.562 - Pain in left knee ([id number]) XR/XR knee BI 4V: M25.561 - Pain [...] PROCESS. Impression dictated by: Godwin Martin Jr., DVilmaOVilma08/31/2023 3:26 PM Dictation Location: [place] [address] Transcribed By: [facility] 08/31/23 1526 Dictated By: Godwin Martin Jr, DO 08/31/23 1524 Signed By: 08/31/23 1526 Normal [facility] COVID/FLU/RSV RT-PCRon 08-02 SARS-CoV-2 (COVID-19) RNA ANGÉLICA+probe Ql (Unsp spec) Negative [employer] Other COVID/FLU/RSV RT-PCR Positive [employer] Other COVID/FLU/RSV RT-PCR Negative [employer] Other 36on 06-21-2023 36 Please let him [...] month with me or Dr. Wilson. Thanks [facility] 36 Depends on the findings from his event monitor. Can we see if we can obtain a pre-limary report from his event monitor? [facility] Telephoneon 06-20-[id number] L Sr. 1955 M Date Provider Department Center 06/20/2023 JUS MAYERS Family History Problem Relation Age of Onset Coronary artery disease Mother Coronary artery disease Father Coronary artery disease Brother ALS Brother Stroke Brother Family Status - Relation Status Age at Mother Father Brother [facility] Orders Onlyon 06-15-2023 Orders Only [id number] Viri Jurado rd L Sr. 1955 M Date Provider Department Center 06/15/2023 JUS MAYERS Family History Problem Relation Age of Onset Coronary artery disease Mother Coronary artery disease Father Coronary artery disease Brother ALS Brother Stroke Brother Family Status - Relation Status Age at Mother Father Brother [facility] 36on 06-12-2023 36 Please let him know his carotid US showed moderate narrowing in his left carotid, mild narrowing on the right. This would not cause his syncope. Continue medication management for this with ASA and atorvastatin. If he has not had a recent lipid panel done recommend he has one so we can optimize his cholesterol medications. Thanks [facility] Telephoneon 06-12-[id number] L Sr. 1955 M Date Provider Department Center 06/12/2023 EDISON COLE Family History Problem Relation Age of Onset Coronary artery disease Mother Coronary artery disease Father Coronary artery disease Brother ALS Brother Stroke Brother Family Status - Relation Status Age at Mother Father Brother [facility] Office Visiton 05-10-2023 Follow-up visit [id number] Joe Juradojordan lozoya L Sr. 1955 M Date Provider Department Center 05/10/2023 EDISON COLE [facility] Family History Problem Relation Age of Onset Coronary artery disease Mother Coronary artery disease Father Coronary artery disease Brother ALS Brother Stroke Brother Family Status - Relation Status Age at Mother Father Brother Level of Service:98439 [place] OFFICE/OUTPATIENT ESTABLISHED MOD MDM 30-39 MIN Normal [facility] Office Visiton 04-19-2023 Follow-up visit [id number] JonnyViri lozoya L Sr. 1955 M Date Provider Department Center 04/19/2023 JUDI [facility] Family History Problem Relation Age of Onset Coronary artery disease Mother Coronary artery disease Father Coronary artery disease Brother ALS Brother Stroke Brother Family Status - Relation Status Age at Mother Father Brother Level of Service:22423 [place] OFFICE/OUTPATIENT ESTABLISHED MOD MDM 30-39 MIN [facility] Orders Onlyon 04-19-2023 Orders Only [id number] JuradoViri [address] rd L Sr. 1955 M Date Provider Department Center 04/19/2023 JUS MAYERS [facility] Family History Problem Relation Age of Onset Coronary artery disease Mother Coronary artery disease Father Coronary artery disease Brother ALS Brother Stroke Brother Family Status - Relation Status Age at Mother Father Brother Normal [facility] ALBUMINon 09-08-2022 Albumin [Mass/Vol] 3.7 g/dL Normal 3.4-5.0 [facility] Comment on above: Performed By: #### P HOS, BMP, ALB, MG #### [facility] [address] [address] [address] Diamante Lacey CREATININE URINEon URINE CREAT 129.52 mg/dL Normal 20.00-300.0 0 [facility] Comment on above: Performed By: #### C REAU, PROTU #### [facility] [address] [address] [address] Diamante Lacey HEMOGLOBINon 09-08-2022 Hemoglobin (Bld) [Mass/Vol] 13.2 g/dL Critically low 14.0-18.0 [facility] Comment on above: Performed By: #### H GB #### [facility] [address] [place] [address] Dr. Diamante Lacey MAGNESIUMon 09-08-2022 Magnesium [Mass/Vol] 1.5 mg/dL Critically low 1.8-2.4 [facility] Comment on above: Performed By: #### P HOS, BMP, ALB, MG #### [facility] [address] [place] [address] Dr. Diamante Lacey PHOSPHORUSon 09-08-2022 Phosphate [Mass/Vol] 3.3 mg/dL Normal 2.6-4.7 [facility] Comment on above: Performed By: #### P HOS, BMP, ALB, MG #### [facility] [address] [place] [address] Dr. Diamante Lacey PROF CHEM 8 (BAS METB)on Anion gap [Moles/Vol] 9.6 mmol/L Normal [facility] Comment on above: Performed By: #### P HOS, BMP, ALB, MG #### [facility] [address] [place] [address] Dr. Diamante Lacey Calcium [Mass/Vol] 8.9 mg/dL Normal 8.5-10.1 [facility] Comment on above: Performed By: #### P HOS, BMP, ALB, MG #### [facility] [address] [place] [address] Dr. Diamante Lacey Chloride [Moles/Vol] 106 mmol/L Normal 98-107 [facility] Comment on above: Performed By: #### P HOS, BMP, ALB, MG #### [facility] [address] [place] [address] Dr. Diamante Lacey CO2 [Moles/Vol] 30.5 mmol/L Normal 21.0-32.0 [facility] Comment on above: Performed By: #### P HOS, BMP, ALB, MG #### [facility] [address] [place] [address] Dr. Diamante Lacey Creatinine [Mass/Vol] 1.34 mg/dL Critically high 0.70-1.30 [facility] Comment on above: Performed By: #### P HOS, BMP, ALB, MG #### [facility] [address] [address] [address] Diamante Lacey EGFR-AF BENINESE >60 Normal >=60 [facility] Comment on above: Performed By: #### P HOS, BMP, ALB, MG #### [facility] [address] [address] [address] Diamante Lacey EGFR-NON AF BENINESE 53 mL/min/1.73m2 Critically low >=60 [facility] Comment on above: Performed By: #### P HOS, BMP, ALB, MG #### [facility] [address] [address] [address] Diamante Lacey Glucose [Mass/Vol] 121 mg/dL Critically high 74-106 T [facility] Comment on above: Performed By: #### P HOS, BMP, ALB, MG #### [facility] [address] [address] [address] Diamante Lacey Potassium [Moles/Vol] 4.1 mmol/L Normal 3.5-5.1 [facility] Comment on above: Performed By: #### P HOS, BMP, ALB, MG #### [facility] [address] [address] [address] Diamante Lacey Sodium [Moles/Vol] 142 mmol/L Normal 136-145 [facility] Comment on above: Performed By: #### P HOS, BMP, ALB, MG #### [facility] [address] [address] [address] Diamante Lacey Urea nitrogen [Mass/Vol] 19.0 mg/dL Critically high 7.0-18.0 [facility] Comment on above: Performed By: #### P HOS, BMP, ALB, MG #### [facility] [address] [address] [address] Diamante Lacey Urea nitrogen/Creatinine [Mass ratio] 14.2 mg/mg Normal [facility] Comment on above: Performed By: #### P HOS, BMP, ALB, MG #### [facility] [address] [place] [address] Dr. Diamante Lacey PROTEIN RAND URINEon 023 UR PROT 15.5 mg/dL Critically high <=11.9 [facility] Comment on above: Performed By: #### C REAU, PROTU #### [facility] [address] [place] [address] Dr. Diamante Lacey CBC AUTO DIFFon 06-06-2022 BASO # 0.1 103/ul Normal 0.0-0.1 [facility] Comment on above: Performed By: #### B MP #### [facility] [address] [place] [address] Dr. Diamante Lacey Basophils/100 WBC (Bld) 0.8 % Normal 0.2-2.0 [facility] Comment on above: Performed By: #### B MP #### [facility] [address] [place] [address] Dr. Diamante Lacey EO # 0.2 103/ul Normal 0.0-0.7 [facility] Comment on above: Performed By: #### B MP #### [facility] [address] [place] [address] Dr. Diamante Lacey Eosinophils/100 WBC (Bld) 3.0 % Normal 0.9-7.0 [facility] Comment on above: Performed By: #### B MP #### [facility] [address] [place] [address] Dr. Diamante Lacey Erythrocyte distribution width (RBC) [Ratio] 14.2 % Normal 11.0-15.0 [facility] Comment on above: Performed By: #### B MP #### [facility] [address] [place] [address] Dr. Diamante Lacey Hematocrit (Bld) [Volume fraction] 41.4 % Critically low 42.0-54.0 [facility] Comment on above: Performed By: #### B MP #### [facility] [address] [place] [address] Dr. Diamante Lacey Hemoglobin (Bld) [Mass/Vol] 14.0 g/dL Normal 14.0-18.0 [facility] Comment on above: Performed By: #### B MP #### [facility] [address] [place] [address] Dr. Diamante Lacey IG # 0.03 10e3/ul Normal 0.00-0.03 [facility] Comment on above: Performed By: #### B MP #### [facility] [address] [place] [address] Dr. Diamante Lacey IG % 0.4 % Normal 0.0-0.5 [facility] Comment on above: Performed By: #### B MP #### [facility] [address] [place] [address] Dr. Diamante Lacey LYMPH # 1.8 103/ul Normal 1.2-3.8 [facility] Comment on above: Performed By: #### B MP #### [facility] [address] [place] [address] Dr. Diamante Lacey Lymphocytes/100 WBC (Bld) 23.0 % Normal 20.5-60.0 [facility] Comment on above: Performed By: #### B MP #### [facility] [address] [place] [address] Dr. Diamante Lacey MANUAL DIFF REQ NO Normal [facility] Comment on above: Performed By: #### B MP #### [facility] [address] [place] [address] Dr. Diamante Lacey MCH (RBC) [Entitic mass] 30.3 pg Normal 25.9-34.0 [facility] Comment on above: Performed By: #### B MP #### [facility] [address] [place] [address] Dr. Diamante Lacey MCHC (RBC) [Mass/Vol] 33.8 g/dL Normal 29.9-35.2 [facility] Comment on above: Performed By: #### B MP #### [facility] [address] [place] [address] Dr. Diamante Lacey MCV (RBC) [Entitic vol] 89.6 fL Normal 80.0-94.0 [facility] Comment on above: Performed By: #### B MP #### [facility] [address] [address] [address] Diamante Lacey MONO # 0.8 103/ul Normal 0.3-0.8 [facility] Comment on above: Performed By: #### B MP #### [facility] [address] [address] [address] Diamante Lacey Monocytes/100 WBC (Bld) 9.8 % Normal 1.7-12.0 [facility] Comment on above: Performed By: #### B MP #### [facility] [address] [address] [address] Diamante Lacey NEUT # 5.0 103/ul Normal 1.4-6.5 [facility] Comment on above: Performed By: #### B MP #### [facility] [address] [place] [address] Dr. Diamante Lacey Neutrophils/100 WBC (Bld) 63.0 % Normal 43.0-75.0 [facility] Comment on above: Performed By: #### B MP #### [facility] [address] [address] [address] Diamante Lacey Platelet mean volume (Bld) [Entitic vol] 10.4 fL Normal 9.5-13.5 [facility] Comment on above: Performed By: #### B MP #### [facility] [address] [place] [address] Dr. Diamante Lacey PLT 215 103/ul Normal 150-450 [facility] Comment on above: Performed By: #### B MP #### [facility] [address] [address] [address] Diamante Lacey RBC 4.62 106/ul Critically low 4.70-6.10 [facility] Comment on above: Performed By: #### B MP #### [facility] [address] [address] [address] Diamante Lacey WBC 7.9 103/ul Normal 4.0-11.0 [facility] Comment on above: Performed By: #### B MP #### [facility] [address] [place] [address] Dr. Diamante Lacey CREATININE URINEon 2 URINE CREAT 46.09 mg/dL Normal 20.00-300.0 0 [facility] Comment on above: Performed By: #### B MP #### [facility] [address] [place] [address] Dr. Diamante Lacey MAGNESIUMon 06-06-2022 Magnesium [Mass/Vol] 2.2 mg/dL Normal 1.8-2.4 [facility] Comment on above: Performed By: #### B MP #### [facility] [address] [place] [address] Dr. Diamante Lacey PHOSPHORUSon 06-06-2022 Phosphate [Mass/Vol] 4.9 mg/dL Critically high 2.6-4.7 [facility] Comment on above: Performed By: #### B MP #### [facility] [address] [place] [address] Dr. Diamante Lacey PROF 14(COMP METB)on 022 Albumin [Mass/Vol] 3.9 g/dL Normal 3.4-5.0 [facility] Comment on above: Performed By: #### B MP #### [facility] [address] [place] [address] Dr. Diamante Lacey Albumin/Globulin [Mass ratio] 1.3 {ratio} Normal [facility] Comment on above: Performed By: #### B MP #### [facility] [address] [place] [address] Dr. Diamante Lacey ALP [Catalytic activity/Vol] 80 U/L Normal 46-116 [facility] Comment on above: Performed By: #### B MP #### [facility] [address] [place] [address] Dr. Diamante Lacey ALT [Catalytic activity/Vol] 32 U/L Normal 16-63 [facility] Comment on above: Performed By: #### B MP #### [facility] [address] [place] [address] Dr. Diamante Lacey Anion gap [Moles/Vol] 10.5 mmol/L Normal [facility] Comment on above: Performed By: #### B MP #### [facility] [address] [address] [address] Diamante Lacey AST [Catalytic activity/Vol] 8 U/L Critically low 15-37 [facility] Comment on above: Performed By: #### B MP #### [facility] [address] [address] [address] Diamante Lacey Bilirubin [Mass/Vol] 0.6 mg/dL Normal 0.2-1.0 [facility] Comment on above: Performed By: #### B MP #### [facility] [address] [address] [address] Diamante Lacey Calcium [Mass/Vol] 9.4 mg/dL Normal 8.5-10.1 [facility] Comment on above: Performed By: #### B MP #### [facility] [address] [address] [address] Diamante Lacey Chloride [Moles/Vol] 103 mmol/L Normal 98-107 [facility] Comment on above: Performed By: #### B MP #### [facility] [address] [address] [address] Diamante Lacey CO2 [Moles/Vol] 30.7 mmol/L Normal 21.0-32.0 [facility] Comment on above: Performed By: #### B MP #### [facility] [address] [address] [address] Diamante Lacey Creatinine [Mass/Vol] 1.72 mg/dL Critically high 0.70-1.30 [facility] Comment on above: Performed By: #### B MP #### [facility] [address] [address] [address] Diamante Lacey EGFR-AF BENINESE 48 mL/min/1.73m2 Critically low >=60 [facility] Comment on above: Performed By: #### B MP #### [facility] [address] [address] [address] Diamante Lacey EGFR-NON AF BENINESE 40 mL/min/1.73m2 Critically low >=60 [facility] Comment on above: Performed By: #### B MP #### [facility] [address] [address] [address] Diamante Lacey Globulin (S) [Mass/Vol] 3.1 g/dL Normal [facility] Comment on above: Performed By: #### B MP #### [facility] [address] [address] [address] Diamante Lacey Glucose [Mass/Vol] 137 mg/dL Critically high 74-106 [facility] Comment on above: Performed By: #### B MP #### [facility] [address] [address] [address] Diamante Lacey Potassium [Moles/Vol] 4.2 mmol/L Normal 3.5-5.1 [facility] Comment on above: Performed By: #### B MP #### [facility] [address] [address] [address] Diamante Lacey Protein [Mass/Vol] 7.0 g/dL Normal 6.4-8.2 [facility] Comment on above: Performed By: #### B MP #### [facility] [address] [address] [address] Diamante Lacey Sodium [Moles/Vol] 140 mmol/L Normal 136-145 [facility] Comment on above: Performed By: #### B MP #### [facility] [address] [address] [address] Diamante Lacey Urea nitrogen [Mass/Vol] 32.0 mg/dL Critically high 7.0-18.0 [facility] Comment on above: Performed By: #### B MP #### [facility] [address] [address] [address] Diamante Lacey Urea nitrogen/Creatinine [Mass ratio] 18.6 mg/mg Normal [facility] Comment on above: Performed By: #### B MP #### [facility] [address] [address] [address] Diamante Lacey PROTEIN RAND URINEon 022 UR PROT <6.0 Normal <=11.9 [facility] Comment on above: Performed By: #### B MP #### [facility] [address] [place] [address] Dr. Diamante Lacey UA RANDOM W/MICROSCOPICon BACTERIA NONE SEEN Normal NONE SEEN [facility] Comment on above: Performed By: #### B MP #### [facility] [address] [place] [address] Dr. Diamante Lacey Bilirubin Ql (U) Negative Normal NEGATIVE [facility] Comment on above: Performed By: #### B MP #### [facility] [address] [place] [address] Dr. Diamante Lacey CAST NONE SEEN Normal NONE SEEN [facility] Comment on above: Performed By: #### B MP #### [facility] [address] [place] [address] Dr. Diamante Lacey Clarity (U) CLEAR Normal CLEAR [facility] Comment on above: Performed By: #### B MP #### [facility] [address] [place] [address] Dr. Diamante Lacey Color (U) LT. YELLOW Normal YELLOW [facility] Comment on above: Performed By: #### B MP #### [facility] [address] [place] [address] Dr. Diamante Lacey Crystals LM Nom (Urine sed) NONE SEEN Normal NONE SEEN [facility] Comment on above: Performed By: #### B MP #### [facility] [address] [place] [address] Dr. Diamante Lacey Epithelial cells LM Ql (Urine sed) RARE Normal NONE SEEN /RARE [facility] Comment on above: Performed By: #### B MP #### [facility] [address] [place] [address] Dr. Diamante Lacey Glucose Ql (U) >1000 Abnormal NEGATIVE [facility] Comment on above: Performed By: #### B MP #### [facility] [address] [place] [address] Dr. Diamante Lacey Hemoglobin Ql (U) Negative Normal NEGATIVE [facility] Comment on above: Performed By: #### B MP #### [facility] [address] [place] [address] Dr. Diamante Lacey Ketones Ql (U) Negative Normal NEGATIVE [facility] Comment on above: Performed By: #### B MP #### [facility] [address] [place] [address] Dr. Diamante Lacey LEUKOCYTES Negative Normal NEGATIVE [facility] Comment on above: Performed By: #### B MP #### [facility] [address] [place] [address] Dr. Diamante Lacey MUCOUS NONE SEEN Normal NONE SEEN [facility] Comment on above: Performed By: #### B MP #### [facility] [address] [place] [address] Dr. Diamante Lacey Nitrite Ql (U) Negative Normal NEGATIVE [facility] Comment on above: Performed By: #### B MP #### [facility] [address] [place] [address] Dr. Diamante Lacey pH (U) 5.5 [pH] Normal 5-9 [facility] Comment on above: Performed By: #### B MP #### [facility] [address] [place] [address] Dr. Diamante Lacey RBC NONE SEEN Abnormal 0-2 [facility] Comment on above: Performed By: #### B MP #### [facility] [address] [place] [address] Dr. Diamante Lacey SPEC GRAVITY 1.020 Normal 1.005-<=1.0 25 [facility] Comment on above: Performed By: #### B MP #### [facility] [address] [place] [address] Dr. Diamante Lacey UA PROTEIN Negative Normal NEGATIVE/ TRACE [facility] Comment on above: Performed By: #### B MP #### [facility] [address] [place] [address] Dr. Diamante Lacey Urobilinogen Qn (U) 0.2 {Iraida'U}/dL Normal 0.2 - 1. 0 [facility] Comment on above: Performed By: #### B MP #### [facility] [address] [place] [address] Dr. Diamante Lacey WBC NONE SEEN Normal NONE SEEN [facility] Comment on above: Performed By: #### B MP #### [facility] [address] [place] [address] Dr. Diamante Lacey PROF CHEM 8 (BAS METB)on Anion gap [Moles/Vol] 14.5 mmol/L Normal [facility] Comment on above: Performed By: #### B MP #### [facility] [address] [place] [address] Dr. Diamante Lacey Calcium [Mass/Vol] 9.3 mg/dL Normal 8.5-10.1 [facility] Comment on above: Performed By: #### B MP #### [facility] [address] [place] [address] Dr. Diamante Lacey Chloride [Moles/Vol] 103 mmol/L Normal 98-107 [facility] Comment on above: Performed By: #### B MP #### [facility] [address] [place] [address] Dr. Diamante Lacey CO2 [Moles/Vol] 28.0 mmol/L Normal 21.0-32.0 [facility] Comment on above: Performed By: #### B MP #### [facility] [address] [place] [address] Dr. Diamante Lacey Creatinine [Mass/Vol] 1.67 mg/dL Critically high 0.70-1.30 [facility] Comment on above: Performed By: #### B MP #### [facility] [address] [place] [address] Dr. Diamante Lacey EGFR-AF BENINESE 50 mL/min/1.73m2 Critically low >=60 [facility] Comment on above: Performed By: #### B MP #### [facility] [address] [place] [address] Dr. Diamante Lcaey EGFR-NON AF BENINESE 41 mL/min/1.73m2 Critically low >=60 [facility] Comment on above: Performed By: #### B MP #### [facility] [address] [place] [address] Dr. Diamante Lacey Glucose [Mass/Vol] 165 mg/dL Critically high 74-106 [facility] Comment on above: Performed By: #### B MP #### [facility] [address] [address] [address] Diamante Lacey Potassium [Moles/Vol] 4.5 mmol/L Normal 3.5-5.1 [facility] Comment on above: Performed By: #### B MP #### [facility] [address] [address] [address] Diamante Lacey Sodium [Moles/Vol] 141 mmol/L Normal 136-145 [facility] Comment on above: Performed By: #### B MP #### [facility] [address] [place] [address] Dr. Diamante Lacey Urea nitrogen [Mass/Vol] 39.0 mg/dL Critically high 7.0-18.0 [facility] Comment on above: Performed By: #### B MP #### [facility] [address] [place] [address] Dr. Diamante Lacey Urea nitrogen/Creatinine [Mass ratio] 23.4 mg/mg Normal [facility] Comment on above: Performed By: #### B MP #### [facility] [address] [place] [address] Dr. Diamante Lacey PROF CHEM 8 (BAS METB)on Anion gap [Moles/Vol] 13.7 mmol/L Normal [facility] Comment on above: Performed By: #### B MP #### [facility] [address] [place] [address] Dr. Diamante Lacey Calcium [Mass/Vol] 9.0 mg/dL Normal 8.5-10.1 [facility] Comment on above: Performed By: #### B MP #### [facility] [address] [place] [address] Dr. Diamante Lacey Chloride [Moles/Vol] 102 mmol/L Normal 98-107 [facility] Comment on above: Performed By: #### B MP #### [facility] [address] [place] [address] Dr. Diamante Lacey CO2 [Moles/Vol] 29.3 mmol/L Normal 21.0-32.0 [facility] Comment on above: Performed By: #### B MP #### [facility] [address] [address] [address] Diamante Lacey Creatinine [Mass/Vol] 1.66 mg/dL Critically high 0.70-1.30 [facility] Comment on above: Performed By: #### B MP #### [facility] [address] [address] [address] Diamante Lacey EGFR-AF BENINESE 50 mL/min/1.73m2 Critically low >=60 [facility] Comment on above: Performed By: #### B MP #### [facility] [address] [address] [address] Diamante Lacey EGFR-NON AF BENINESE 41 mL/min/1.73m2 Critically low >=60 [facility] Comment on above: Performed By: #### B MP #### [facility] [address] [address] [address] Diamante Lacey Glucose [Mass/Vol] 137 mg/dL Critically high 74-106 [facility] Comment on above: Performed By: #### B MP #### [facility] [address] [address] [address] Diamante Lacey Potassium [Moles/Vol] 4.0 mmol/L Normal 3.5-5.1 [facility] Comment on above: Performed By: #### B MP #### [facility] [address] [address] [address] Diamante Lacey Sodium [Moles/Vol] 141 mmol/L Normal 136-145 [facility] Comment on above: Performed By: #### B MP #### [facility] [address] [address] [address] Diamante Lacey Urea nitrogen [Mass/Vol] 38.0 mg/dL Critically high 7.0-18.0 [facility] Comment on above: Performed By: #### B MP #### [facility] [address] [address] [address] Diamante Lacey Urea nitrogen/Creatinine [Mass ratio] 22.9 mg/mg Normal [facility] Comment on above: Performed By: #### B MP #### [facility] [address] [place] [address] Dr. Diamante Lacey NM STRESS ONLY SINGLEon 08 NM STRESS ONLY SINGLE Patient: TAWANDA JURADO Exam Date: 02/16/2022 : 1955 Gender:M Ordering : DR SURYA MAST M.D. Admission #: [id number] Family : DR JUDI WILSON M.D. Order #: [id number] CLICK HERE TO VIEW EXAM RADIOLOGY REPORT [...] MD on 03/24/2022 at 11:54 Normal [facility] CBC AUTO DIFFon 01-27-2022 BASO # 0.1 103/ul Normal 0.0-0.1 [facility] Comment on above: Performed By: #### B MP #### [facility] [address] [place] [address] Dr. Diamante Lacey Basophils/100 WBC (Bld) 0.6 % Normal 0.2-2.0 [facility] Comment on above: Performed By: #### B MP #### [facility] [address] [place] [address] Dr. Diamante Lacey EO # 0.2 103/ul Normal 0.0-0.7 [facility] Comment on above: Performed By: #### B MP #### [facility] [address] [place] [address] Dr. Diamante Lacey Eosinophils/100 WBC (Bld) 2.6 % Normal 0.9-7.0 [facility] Comment on above: Performed By: #### B MP #### [facility] [address] [place] [address] Dr. Diamante Lacey Erythrocyte distribution width (RBC) [Ratio] 14.6 % Normal 11.0-15.0 [facility] Comment on above: Performed By: #### B MP #### [facility] [address] [place] [address] Dr. Diamante Lacey Hematocrit (Bld) [Volume fraction] 39.1 % Critically low 42.0-54.0 [facility] Comment on above: Performed By: #### B MP #### [facility] [address] [place] [address] Dr. Diamante Lacey Hemoglobin (Bld) [Mass/Vol] 12.8 g/dL Critically low 14.0-18.0 [facility] Comment on above: Performed By: #### B MP #### [facility] [address] [place] [address] Dr. Diamante Lacey IG # 0.02 10e3/ul Normal 0.00-0.03 [facility] Comment on above: Performed By: #### B MP #### [facility] [address] [place] [address] Dr. Diamante Lacey IG % 0.2 % Normal 0.0-0.5 [facility] Comment on above: Performed By: #### B MP #### [facility] [address] [place] [address] Dr. Diamante Lacey LYMPH # 1.7 103/ul Normal 1.2-3.8 [facility] Comment on above: Performed By: #### B MP #### [facility] [address] [place] [address] Dr. Diamante Lacey Lymphocytes/100 WBC (Bld) 20.8 % Normal 20.5-60.0 [facility] Comment on above: Performed By: #### B MP #### [facility] [address] [place] [address] Dr. Diamante Lacey MANUAL DIFF REQ NO Normal [facility] Comment on above: Performed By: #### B MP #### [facility] [address] [place] [address] Dr. Diamante Lacey MCH (RBC) [Entitic mass] 30.0 pg Normal 25.9-34.0 [facility] Comment on above: Performed By: #### B MP #### [facility] [address] [place] [address] Dr. Diamante Lacey MCHC (RBC) [Mass/Vol] 32.7 g/dL Normal 29.9-35.2 [facility] Comment on above: Performed By: #### B MP #### [facility] [address] [place] [address] Dr. Diamante Lacey MCV (RBC) [Entitic vol] 91.6 fL Normal 80.0-94.0 [facility] Comment on above: Performed By: #### B MP #### [facility] [address] [place] [address] Dr. Diamante Lacey MONO # 0.8 103/ul Normal 0.3-0.8 [facility] Comment on above: Performed By: #### B MP #### [facility] [address] [place] [address] Dr. Diamante Lacey Monocytes/100 WBC (Bld) 9.4 % Normal 1.7-12.0 [facility] Comment on above: Performed By: #### B MP #### [facility] [address] [place] [address] Dr. Diamante Lacey NEUT # 5.5 103/ul Normal 1.4-6.5 [facility] Comment on above: Performed By: #### B MP #### [facility] [address] [place] [address] Dr. Diamante Lacey Neutrophils/100 WBC (Bld) 66.4 % Normal 43.0-75.0 [facility] Comment on above: Performed By: #### B MP #### [facility] [address] [address] [address] Diamante Lacey Platelet mean volume (Bld) [Entitic vol] 11.3 fL Normal 9.5-13.5 [facility] Comment on above: Performed By: #### B MP #### [facility] [address] [address] [address] Dimaante Lacey PLT 196 103/ul Normal 150-450 [facility] Comment on above: Performed By: #### B MP #### [facility] [address] [address] [address] Diamante Lacey RBC 4.27 106/ul Critically low 4.70-6.10 [facility] Comment on above: Performed By: #### B MP #### [facility] [address] [place] [address] Dr. Diamante Lacey WBC 8.3 103/ul Normal 4.0-11.0 [facility] Comment on above: Performed By: #### B MP #### [facility] [address] [place] [address] Dr. Diamante Lacey LIPASEon 01-27-2022 Lipase [Catalytic activity/Vol] 227.0 U/L Normal 73.0-393.0 [facility] Comment on above: Performed By: #### B MP #### [facility] [address] [place] [address] Dr. Diamante Lacey MAGNESIUMon 01-27-2022 Magnesium [Mass/Vol] 1.7 mg/dL Critically low 1.8-2.4 [facility] Comment on above: Performed By: #### M G #### [facility] [address] [place] [address] Dr. Diamante Lacey PROF 14(COMP METB)on 022 Albumin [Mass/Vol] 3.6 g/dL Normal 3.4-5.0 [facility] Comment on above: Performed By: #### B MP #### [facility] [address] [place] [address] Dr. Diamante Lacey Albumin/Globulin [Mass ratio] 1.4 {ratio} Normal [facility] Comment on above: Performed By: #### B MP #### [facility] [address] [place] [address] Dr. Diamante Lacey ALP [Catalytic activity/Vol] 88 U/L Normal 46-116 [facility] Comment on above: Performed By: #### B MP #### [facility] [address] [place] [address] Dr. Diamante Lacey ALT [Catalytic activity/Vol] 30 U/L Normal 16-63 [facility] Comment on above: Performed By: #### B MP #### [facility] [address] [place] [address] Dr. Diamante Lacey Anion gap [Moles/Vol] 15.7 mmol/L Normal [facility] Comment on above: Performed By: #### B MP #### [facility] [address] [place] [address] Dr. Diamante Lacey AST [Catalytic activity/Vol] 13 U/L Critically low 15-37 [facility] Comment on above: Performed By: #### B MP #### [facility] [address] [place] [address] Dr. Diamante Lacey Bilirubin [Mass/Vol] 0.5 mg/dL Normal 0.2-1.0 [facility] Comment on above: Performed By: #### B MP #### [facility] [address] [place] [address] Dr. Diamante Lacey Calcium [Mass/Vol] 8.5 mg/dL Normal 8.5-10.1 [facility] Comment on above: Performed By: #### B MP #### [facility] [address] [place] [address] Dr. Diamante Lacey Chloride [Moles/Vol] 106 mmol/L Normal 98-107 [facility] Comment on above: Performed By: #### B MP #### [facility] [address] [place] [address] Dr. Diamante Lacey CO2 [Moles/Vol] 24.4 mmol/L Normal 21.0-32.0 [facility] Comment on above: Performed By: #### B MP #### [facility] [address] [address] [address] Diamante Lacey Creatinine [Mass/Vol] 1.41 mg/dL Critically high 0.70-1.30 [facility] Comment on above: Performed By: #### B MP #### [facility] [address] [address] [address] Diamante Lacey EGFR-AF BENINESE >60 Normal >=60 [facility] Comment on above: Performed By: #### B MP #### [facility] [address] [address] [address] Diamante Lacey EGFR-NON AF BENINESE 50 mL/min/1.73m2 Critically low >=60 [facility] Comment on above: Performed By: #### B MP #### [facility] [address] [address] [address] Diamante Lacey Globulin (S) [Mass/Vol] 2.5 g/dL Normal [facility] Comment on above: Performed By: #### B MP #### [facility] [address] [address] [address] Diamante Lacey Glucose [Mass/Vol] 103 mg/dL Normal 74-106 [facility] Comment on above: Performed By: #### B MP #### [facility] [address] [address] [address] Diamante Lacey Potassium [Moles/Vol] 4.1 mmol/L Normal 3.5-5.1 [facility] Comment on above: Performed By: #### B MP #### [facility] [address] [address] [address] Diamante Lacey Protein [Mass/Vol] 6.1 g/dL Critically low 6.4-8.2 [facility] Comment on above: Performed By: #### B MP #### [facility] [address] [address] [address] Diamante Lacey Sodium [Moles/Vol] 142 mmol/L Normal 136-145 [facility] Comment on above: Performed By: #### B MP #### [facility] [address] [address] [address] Diamante Lacey Urea nitrogen [Mass/Vol] 23.0 mg/dL Critically high 7.0-18.0 [facility] Comment on above: Performed By: #### B MP #### [facility] [id number] Diamante Lacey Urea nitrogen/Creatinine [Mass ratio] 16.3 mg/mg Normal [facility] Comment on above: Performed By: #### B MP #### [facility] [address] [address] [address] Diamante Lacey TROPONIN, HIGH SENSITIVITYon 01-27-2022 HSTROP 15.5 pg/mL Normal 4.0-76.1 [facility] Comment on above: Result Comment: CUT- OFF POINTS HAVE BEEN ESTABLISHED BASED ON THE FOURTH UNIVERSAL DEFINITIONS OF MYOCARDIAL INFARCTION. THE UPPER REFERENCE LIMIT (URL) OF TROPONIN, DEFINED THE 99TH PERCENTILE OF cTnI DISTRIBUTION IN A REFERENCE POPULATION, HAS BEEN CONFIRMED THE DECISION THRESHOLD FOR IA DIAGNOSIS. Performed By: #### B MP #### [facility] [address] [address] [address] Diamante Lacey HSTROP 13.8 pg/mL Normal 4.0-76.1 [facility] Comment on above: Result Comment: CUT- OFF POINTS HAVE BEEN ESTABLISHED BASED ON THE FOURTH UNIVERSAL DEFINITIONS OF MYOCARDIAL INFARCTION. THE UPPER REFERENCE LIMIT (URL) OF TROPONIN, DEFINED THE 99TH PERCENTILE OF cTnI DISTRIBUTION IN A REFERENCE POPULATION, HAS BEEN CONFIRMED THE DECISION THRESHOLD FOR IA DIAGNOSIS. Performed By: #### B MP #### [facility] [id number] Diamante Lacey XR CHEST 1 Von [...] ALBERTO RAE Date: 2022-01-27 19:00 Normal [facility] Office Visit (Cardiology)on 06-18-2021 Follow-up visit [...] negative for complaint. Vitals Vital Signs Recorded: [id number] 01:30PMRecorded: 18Jun2021 01:28PM Pjvqbuvv801, RUE, Iduacrg328, LUE, Sitting Burypqles88, RUE, Kvbewbm98, LUE, Sitting Heart Rate78, L Radial Height5 ft 10 in Vjklrq779 lb BMI Wdxylggbia54.72 kg/m2 BSA Calculated2.26 Physical Exam Constitutional: alert [...] No Panel Informationon 06-11 8.8\S\8.8 Normal 8.2-10.2 [facility] 250 DO Work Phone: Comment on above: PERFORMED BY:[address] [address] [address] [place] [id number] MEDICAL DIRECTORHENOK YANEZ M.D. 27.0\S\27.0 Normal 22.0-30.0 [facility] [employer] 250 DO Work Phone: 103\S\103 Normal 95-114 [facility] PredictAdJavid 250 DO Work Phone: 4.4\S\4.4 Normal 3.5-5.1 [facility] [employer] 250 DO Work Phone: 138\S\138 Normal 136-146 [facility] [employer] 250 DO Work Phone: 53\S\53 Normal [facility] [employer] 250 DO Work Phone: Comment on above: GFR estimated refere nce range: According to KDOQI guidelines, <60 ml/min/1.73m2 is sufficient to diagnose a patient with chronic kidney disease. 44\S\44 Normal [facility] [employer] Sidhu DO Work Phone: 1.59\S\1.59 above high threshold 0.64-1.27 [facility] [employer] Sidhu DO Work Phone: 25\S\25 above high threshold 9-23 [facility] [employer] 250 DO Work Phone: 143\S\143 above high threshold 70-100 [facility] [employer] Sidhu DO Work Phone: Comment on above: Random [...] Patient Instructions By signing my name below, I, Yesenia Thomason LPN, attest that this documentation has been prepared [...] Vital Signs Recorded: 28May2021 02:21PMRecorded: 28May2021 02:13PM [id number], LUE, Lounkqr181, RUE, Sitting Sgsmfegzc92, LUE, Lqtkhyu545, RUE, Sitting Heart Rate71, Apical Height5 ft 10 in Hzpcon922 lb BMI Bwheyfqlyj55.87 kg/m2 BSA Calculated2.27 Tobacco Useb) No Fall [...] S1 and (more content not included)... Normal [facility] Tobacco Screening.on 021 Fall risk assessment a) No falls within the last year [facility] DO Work Phone: Tobacco use status [facility]PH[facility] b) No [facility] DO Work Phone: Vital Signs Date Time Vital Sign Value Performing Clinician Facility 10-30-2023 13:10-0400 Diastolic blood pressure 86 mm[Hg] MD Surya Mast Work Phone: [facility] 10-30-2023 13:10-0400 Heart rate 62 /min MD Surya Mast Work Phone: [facility] 10-30-2023 13:10-0400 Respiratory rate 16 /min MD Surya Mast Work Phone: [facility] 10-30-2023 13:10-0400 SaO2% (BldA) [Mass fraction] 98 % MD Surya Mast Work Phone: [facility] 10-30-2023 13:10-0400 Systolic blood pressure 140 mm[Hg] MD Surya Mast Work Phone: [facility] 10-30-2023 12:40-0400 Inhaled oxygen flow rate 6 L/min MD Surya Mast Work Phone: [facility] 10-30-2023 12:25-0400 Body height 175.26 cm MD Surya Mast Work Phone: [facility] 10-30-2023 12:25-0400 Body mass index (BMI) [Ratio] 34.9 kg/m2 MD Surya Mast Work Phone: [facility] 10-30-2023 12:25-0400 Body weight 107.5 kg MD Surya Mast Work Phone: [facility] 10-30-2023 10:15-0400 Body temperature 97.7 [degF] MD Surya Mast Work Phone: [facility] 08-31-2023 15:03-0500 Body height 175.26 cm MD Surya Mast Work Phone: [facility] 08-31-2023 15:03-0500 Body mass index (BMI) [Ratio] 34.9 kg/m2 MD Surya Mast Work Phone: [facility] 08-31-2023 15:03-0500 Body weight 107.5 kg MD Surya Mast Work Phone: [facility] 08-29-2023 11:25-0500 Body mass index (BMI) [Ratio] 35.12 kg/m2 Jason Fountain [employer] Work Phone: [facility] 08-29-2023 11:25-0500 Body weight 107.86 kg Jason Fountain [employer] Work Phone: [facility] 08-29-2023 11:25-0500 Diastolic blood pressure 83 mm[Hg] Jason Fountain [employer] Work Phone: [facility] 08-29-2023 11:25-0500 Heart rate 70 /min Jason Fountain [employer] Work Phone: [facility] 08-29-2023 11:25-0500 Respiratory rate 14 /min Jason Fountain [employer] Work Phone: [facility] 08-29-2023 11:25-0500 SaO2% (BldA) [Mass fraction] 95 % Jason Fountain [employer] Work Phone: [facility] 08-29-2023 11:25-0500 Systolic blood pressure 140 mm[Hg] Jason Fountain [employer] Work Phone: [facility] 08-02-2023 09:05-0500 Body height 175.26 cm Leidy Jamison Other [facility] 08-02-2023 09:05-0500 Body mass index (BMI) [Ratio] 35.47 kg/m2 Leidy Jamison Other [facility] [employer] Other 08-02-2023 09:05-0500 Body temperature 97.1 [degF] Leidy Jamison Other [facility] Other 08-02-2023 09:05-0500 Body weight 108.95 kg Leidy Jamison Other [facility] 08-02-2023 09:05-0500 Diastolic blood pressure 74 mm[Hg] Leidy Jamison Other [facility] 08-02-2023 09:05-0500 Respiratory rate 18 /min Leidy Jamison Other [facility] Other 08-02-2023 09:05-0500 SaO2% (BldA) [Mass fraction] 89 % Leidy Jamison Other [facility] [employer] Other 08-02-2023 09:05-0500 Systolic blood pressure 122 mm[Hg] Leidy Jamison Other [facility] 06-18-2021 13:30-0500 Diastolic blood pressure 80 mm[Hg] Ondorea Work Phone: [facility] 250 DO Work Phone: 06-18-2021 13:30-0500 Systolic blood pressure 122 mm[Hg] Rugen [employer] [place] Work Phone: [facility] DO Work Phone: 06-18-2021 13:28-0500 Body height 177.8 cm Rugen M [place] Work Phone: [facility] DO Work Phone: 06-18-2021 13:28-0500 Body mass index (BMI) [Ratio] 34.72 kg/m2 Rugen M [place] Work Phone: [facility] 250 DO Work Phone: 06-18-2021 13:28-0500 Body surface area Derived from formula 2.26 m2 Rugen M Pro Work Phone: [facility] DO Work Phone: 06-18-2021 13:28-0500 Body weight 109.77 kg Rugen Deysi Lowpoint Work Phone: [facility] DO Work Phone: 06-18-2021 13:28-0500 Diastolic blood pressure 72 mm[Hg] Rugen M Pro Work Phone: [facility] DO Work Phone: 06-18-2021 13:28-0500 Heart rate 78 /min Rugen Deysi Lowpoint Work Phone: [facility] DO Work Phone: 06-18-2021 13:28-0500 Systolic blood pressure 124 mm[Hg] Rugen Deysi Pro Work Phone: [facility] DO Work Phone: 05-28-2021 14:21-0500 Diastolic blood pressure 98 mm[Hg] Rugen M Pro Work Phone: [facility] DO Work Phone: 05-28-2021 14:21-0500 Systolic blood pressure 160 mm[Hg] Rugen M Pro Work Phone: [facility] DO Work Phone: 05-28-2021 14:13-0500 Body height 177.8 cm Rugen M Pro Work Phone: [facility] DO Work Phone: 05-28-2021 14:13-0500 Body mass index (BMI) [Ratio] 34.87 kg/m2 Rugen M Lowpoint Work Phone: [facility] DO Work Phone: 05-28-2021 14:13-0500 Body surface area Derived from formula 2.27 m2 Rugen M Lowpoint Work Phone: [facility] DO Work Phone: 05-28-2021 14:13-0500 Body weight 110.22 kg Rugen M Pro Work Phone: [facility] DO Work Phone: 05-28-2021 14:13-0500 Diastolic blood pressure 108 mm[Hg] Rugen Deysi Lowpoint Work Phone: [facility] DO Work Phone: 05-28-2021 14:13-0500 Heart rate 71 /min Rugen Deysi Lowpoint Work Phone: [facility] DO Work Phone: 05-28-2021 14:13-0500 Systolic blood pressure 162 mm[Hg] Rugen M Lowpoint Work Phone: [facility] DO Work Phone: Encounters Encounter Date Encounter Type Care Provider Facility Start: 02-13-2024 End: 02-13-2024 ambulatory JASON FOUNTAIN Not Available Start: 02-01-2024 End: 02-01-2024 ambulatory AB [facility] Start: 01-25-2024 End: 01-25-2024 ambulatory JASON FOUNTAIN Not Available Start: 01-16-2024 End: 01-16-2024 ambulatory JASON FOUNTAIN Not Available Start: 01-09-2024 End: 01-09-2024 ambulatory JASON FOUNTAIN Not Available Start: 12-13-2023 End: 12-13-2023 ambulatory JASON FOUNTAIN Not Available Start: 12-06-2023 End: 12-06-2023 ambulatory JASON FOUNTAIN Not Available Start: 11-29-2023 End: 11-29-2023 ambulatory JASON FOUNTAIN Not Available Start: 11-15-2023 End: 11-15-2023 ambulatory JASON FOUNTAIN Not Available Start: 11-09-2023 End: 11-09-2023 ambulatory SURYA MAST Not Available Start: 11-07-2023 End: 11-07-2023 ambulatory DAVIDE OCAMPO V Not Available Start: 10-30-2023 End: 10-30-2023 ambulatory Davide Ocampo Facility:[facility] Start: 10-30-2023 End: 10-30-2023 Admission to same day surgery center MD Surya Mast Work Phone: [facility] [place] Start: 10-30-2023 End: 10-30-2023 ambulatory MD Surya Mast Work Phone: [facility] Work Phone: Start: 10-10-2023 End: 10-10-2023 ambulatory DAVIDE COAMPO V Not Available Start: 08-31-2023 End: 08-31-2023 ambulatory MD Surya Mast Work Phone: [facility] Work Phone: Start: 08-31-2023 End: 08-31-2023 Patient encounter procedure MD Surya Mast Work Phone: [facility] Work Phone: Start: 08-31-2023 End: 08-31-2023 ambulatory Jagdeep Stiles II Facility:[facility] Start: 08-31-2023 End: 08-31-2023 ambulatory MD Surya Mast Work Phone: [facility] Work Phone: Start: 08-31-2023 End: 08-31-2023 Patient encounter procedure MD Surya Mast Work Phone: [facility] Start: 08-29-2023 Chart abstracting Jason pan [employer] Work Phone: [facility] Start: 08-29-2023 End: 08-29-2023 Office outpatient visit 25 minutes Jason Fountain [employer] Work Phone: [facility] Comment on above: Bronchitis (Primary Dx); Left non-suppurative otitis media Start: 08-29-2023 End: 08-29-2023 ambulatory JASON FOUNTAIN Not Available Start: 08-07-2023 End: 08-07-2023 ambulatory SURYA MAST Not Available Start: 08-02-2023 (URG) Urgent Care Visit Leidy paniagua [facility] [place] Start: 08-02-2023 End: 08-02-2023 ambulatory Leidy Jamison Other [employer] Other Start: 08-02-2023 Telephone encounter Leidy Jamison [facility] [place] Start: 08-02-2023 End: 08-02-2023 Patient encounter procedure MD Surya Mast Work Phone: [facility]- Start: 07-19-2023 End: 07-19-2023 ambulatory IFEANYI B VINH Not Available Start: 07-06-2023 End: 07-06-2023 ambulatory IFEANYI B VINH Not Available Start: 07-05-2023 End: 07-05-2023 ambulatory JASON FOUNTAIN Not Available Start: 06-27-2023 End: 06-27-2023 ambulatory JASON FOUNTAIN Not Available Start: 05-10-2023 End: 05-10-2023 [facility] Start: 04-19-2023 End: [facility] Start: 09-08-2022 End: 09-09-[address] SURYA MAST Facility:[facility] Start: 06-06-2022 End: 06-07-[address] SURYA MAST Facility:[facility] Start: 03-18-2022 End: 03-19-[address] JUDI WILSON Facility:[facility] Start: 03-14-2022 End: 03-15-[address] JUDI WILSON Facility:[facility] Start: 02-16-2022 End: 02-17-[address] SURYA MAST Facility:[facility] Start: 01-27-2022 End: 01-27-2022 ambulatory FIORELLA BRONSON Facility:[facility] Start: 06-18-2021 Office outpatient vi sit 15 minutes Rugen M Lowpoint Work Phone: [facility] DO Work Phone: Start: 06-16-2021 NURSEVST, Provider: KAREN MORRIS PAPER SORTER 1,[id number], Status: Pen, Time: 1:00 PM Rugen M Lowpoint Work Phone: [facility] DO Work Phone: Start: 06-14-2021 Chart Update Rugen M Lowpoint Work Phone: [facility] DO Work Phone: Start: 05-28-2021 Office consultation new/estab patient 60 min Rugen M Pro Work Phone: [facility] DO Work Phone: Start: 05-28-2021 Patient encounter procedure Rugen M Lowpoint Work Phone: [facility] DO Work Phone: Start: 08-30-2016 End: 08-31-2016 Ambulatory DEFAULT PHYSICIAN Facility:[facility] Procedures Date Procedure Procedure Detail Performing Clinician Start: 10-30-2023 Colonoscopy MD Surya ureña Work Phone: Start: 08-31-2023 Pelvis X-ray MD Surya ureña Work Phone: Start: 08-31-2023 X-ray of both knees MD Surya Mast Work Phone: Appendectomy Surya Mast Work Phone: Coronary artery bypa ss graft Surya Mast Work Phone: Hernia repair Surya Mast Work [...] from 03/17 (Other Patient Reasons) Start: 10-30-2023 [facility] Start: 10-04-2023 Hemoglobin A1c measurement Diabetes: Hemoglobin A1C [facility] Start: 09-04-2023 End: 09-04-2023 Patient encounter procedure 09/04/2023 2:30 PM EST Office Visit [facility] [address] [facility] [address] [place] [id number] Surya Mast MD [address] [facility] [address] [place] [address] [facility] Start: 08-29-2023 End: 08-29-2023 Patient encounter procedure 08/29/2023 11:30 AM EST Office Visit [facility] [address] [facility] [address] [place] [address] Jason Fountain [employer] [address] [facility] [address] [place] [address] [facility] Start: 01-21-2022 Screening for malign ant neoplasm of colon [facility] Start: 12-29-2021 FUV, Provider: Juanito Peterson, Status: Pen, Time: 1:40 PM FUV, Provider: Juanito Peterson, Status: Pen, Time: 1:40 PM [facility] DO Work Phone: Start: 08-25-2021 FUV, Provider: Juanito Peterson, Status: Pen, Time: 1:30 PM FUV, Provider: Juanito Peterson, Status: Pen, Time: 1:30 PM [facility] DO Work Phone: Start: 06-16-2021 NURSEVST, Provider: KAREN MORRIS PAPER SORTER 1,[id number], Status: Pen, Time: 1:00 PM NURSEVST, Provider: KAREN MORRIS PAPER SORTER 1,[id number], Status: Pen, Time: 1:00 PM [facility] DO Work Phone: Start: 1955 Screening for malign ant neoplasm of colon [facility] Patient Education Colonoscopy (D C) Colon Polypectomy (DC) [facility] Work Phone: Patient referral [facility] Work Phone: Immunizations Immunization Date Immunization Notes Care Provider Fa rony 11-11-2020 Pfizer-BioNTech COVI D-19 Vacc 30 MCG/0.3ML Intramuscular Suspension Rugen M Lowpoint Work Phone: [facility] DO Work Phone: 10-21-2020 Pfizer-BioNTech COVI D-19 Vacc 30 MCG/0.3ML Intramuscular Suspension Rugen M Lowpoint Work Phone: [facility] DO Work Phone: Payers Date Payer Category Payer Self-pay [id number] 2017 Unknown 1959 Unknown [id number] 1955 Unknown [id number] 2.16.84 0.1.581029.3.579.2.593 1953 Unknown [id number] 2.16.84 0.1.936526.3.579.2.593 1953 Unknown [id number] 2.16.84 0.1.828683.3.579.2.593 1953 Unknown [id number] 2.16.84 0.1.664662.3.579.2.593 1953 Unknown [id number] 2.16.84 0.1.225750.3.579.2.593 1953 Unknown [id number] 2.16.84 0.1.323689.3.579.2.593 1953 Unknown [id number] 2.16.84 0.1.708439.3.579.2.593 1953 Unknown [id number] 2.16.84 0.1.179696.3.579.2.1259 1953 Unknown [id number] 2.16.84 0.1.969555.3.579.2.1259 1953 Unknown [id number] 2.16.84 0.1.418559.3.579.2.1259 1953 Unknown [id number] 2.16.84 0.1.801222.3.579.2.1259 1953 Unknown [id number] 2.16.84 0.1.482350.3.579.2.1259 1953 Unknown [id number] 2.16.84 0.1.474812.3.579.2.1259 1953 Unknown [id number] 2.16.84 0.1.635051.3.579.2.1259 1953 Unknown [id number] 2.16.84 0.1.609377.3.579.2.1259 1953 Unknown [id number] 2.16.84 0.1.556100.3.579.2.1259 1953 Unknown [id number] 2.16.84 0.1.581536.3.579.2.1259 1953 Unknown [id number] 2.16.84 0.1.574295.3.579.2.1259 1953 Unknown [id number] 2.16.84 0.1.641083.3.579.2.1259 1953 Unknown [id number] 2.16.84 0.1.396214.3.579.2.1259 1953 Unknown [id number] 2.16.840 .1.427410.3.579.2.1259 1953 Unknown [id number] 2.16.840 .1.129478.3.579.2.1259 1953 Unknown [id number] 2.16.840 .1.966789.3.579.2.1259 1953 Unknown [id number] 2.16.840 .1.960083.3.579.2.1259 Medicare [id number] Unknown [id number] Unknown [id number] 2.16.8 40.1.909388.3.579.2.531 Unknown [id number] 2.16.8 40.1.040967.3.579.2.531 Worker's Compensation [id number] Social History Date Type Detail Facility Start: 08-07-2023 End: 08-29-2023 No illicit drug use No illicit drug use [place] [address] DO Work Phone: Comment on above: Quit 43 years ago; Start: 08-07-2023 End: 08-29-2023 Sex Assigned At [facility] [employer] Other Start: 02-14-2023 Tobacco smoking status GAIS Never smoked tobacco [facility] Start: 02-14-2023 Tobacco use and exposure Smokeless tobacco non-user [facility] Start: 08-07-2023 End: 08-29-2023 Alcohol intake Lifetime non-drinker (finding) [facility] Start: 1955 Sex Assigned At Not on file [facility] Start: 08-02-2023 End: 10-30-2023 Tobacco smoking status GAIS Ex-smoker (finding) [facility] Start: 1955 Sex Assigned At Male F [facility] Goals Date Patient Goal Desired Activity /State Clinical Notes 05-27-2021 to 02-01-2024 Jason Fountain, [employer] - 08/29/2023 11:30 AM EST Note Date & Type Note Facility 02-01-2024 Note [facility] Cardiology Clinic Note Chief Complaint: HTN control, [...] to loop diureti (more content not included)... [facility] 08-29-2023 History of Present illness Narrative Subjective [...] plenty of rest. documented in this encounter [facility] 08-02-2023 Evaluation note Encounter Date Diagnosis Assessment Notes Jul, Contact with and (suspected) exposure to covid-19 (ICD-10 - Z20.822) Jul, Influenza A (ICD-10 - J10.1) Patient left the urgent care prior to receiving the results of his PCR COVID, influenza, RSV testing. He was not seen by the provider. Will attempt to notify patient of his results. [employer] Other 10-25-2023 NotePatient here c/o hypotension and [...] light-headedness. All other systems reviewed and are negative.[facility] Chief Complaint: dizziness, syncope, low BP. HPI: Tawanda Jurado . is a 68 y.o. male With history [...] LICA 50-79% stenosis Assessmen (more content not included)...[facility] Chief Complaint: Patient here for 1 year follow up CAD and hypertension. Had labs in Aug 2022. Denies chest pain, SOB, and palpitations. Says today at home before his apt his BP was 219/119. Sometimes will run around 150 systolic. HPI: Tawanda Jurado Sr. is a 67 y.o. male With history [...] to 4 months Judi Wilson MD, MPH, [facility] (more content not included)...[facility]12-03-2021 History of Present illness NarrativePatient returns in [...] exercise and weight loss were reviewed with him.-[facility] [employer] DO Work Phone: [phone] 249-838911-11-2021 History of Present illness Narrative* Patient is [...] he will do the best he can. [facility] [employer] 250 DO Work Phone: Evaluation noteNo [employer] Other Evaluation note* Diagnosis Bronchitis- Primary Bronchitis, not specified as acute or chronic Left non-suppurative otitis media Nonsuppurative otitis media, not specified as acute or chronic documented in this encounter [facility] Diagnosis Onset Date Resolution Status Bilateral primary osteoarthritis of knee acute Knee pain, left acute Knee pain, right acute [facility] Work Phone: History general Narrative - Reported* Type Description Date Medical History HTN Medical History Arthritis Medical History Diabetes Medical History Hx of [place] Medical History Hyperlipidemia Medical History Coronary artery disease Surgical History Appendectomy Surgical History Arthroscopy, bilateral knees Surgical History Hernia Surgical History Left hand Surgical History heart bypass graft x 6 Surgical History cataract removal Hospitalization History See above [employer] Other Summary Purpose Family History No Family [...] section and content) DATE CREATED AUTHOR 01/09/2018 [facility] DATE CREATED AUTHOR AUTHOR'S ORGANIZ ATION 06/20/2021 [employer] DATE CREATED AUTHOR AUTHOR'S ORGANIZ ATION 09/13/2022 [facility] DATE CREATED AUTHOR AUTHOR'S ORGANIZ ATION 12/09/2023 [facility] DATE CREATED AUTHOR AUTHOR'S ORGANIZ ATION 02/05/[address] [facility] DATE CREATED AUTHOR AUTHOR'S ORGANIZ ATION 02/15/2024 [facility] EPIC REASON FOR VISIT (unrecogniz ed section and content) COUGH, BODY ACHES, CHEST CON GESTIONNo Information Care Teams (unrecognized sec tion and content) Molecular Technologist Relationship Specialty Start Date End Date Surya Mast MD [address] [address] PCP - [facility] 10/15/20 Surya Mast MD [address] [address] PCP - General Family Medicine 11/22/22 Molecular Technologist Relationship Specialty Start Date End Date Surya Mast MD 112 [facility] [address] [place] [address] PCP - [facility] 10/15/20 Surya Mast MD [address] [facility] [address] [place] [address] PCP - General Family Medicine 11/22/22 Team Status: Active Member Role Status Dates Surya Mast MD Primary Care Provider Active Team Status: Inactive Member Role Status Watson Jamison NP-C Attending Provider Active S tart: August 02, 2023 End: August 02, 2023 Team Status: Active Member Role Status Watson Mast MD Primary [...] BE BASED ON THE PRIMARY CLINICAL RECORDS. [facility] [employer] [facility]. provides no warranty or guarantee of the accuracy or completeness of information in this document.
[2024-02-19 10:45] LABS: Anion Gap 11.7; BUN Creatinine Ratio 16.5; Calcium 8.7 mg/dL (8.5-10.1); Carbon Dioxide 28.8 mmol/L (21.0-32.0); Chloride 104 mmol/L (98-107); Estimated GFR (African America 45 (>=60); Estimated GFR (Non-African Ame 37 (>=60); Glucose 242 mg/dL (74-106); Potassium 4.5 mmol/L (3.5-5.1); Sodium 140 mmol/L (136-145)
== END 2024-02-19 10:05 | disposition home or self-care (01) ==
PROVIDERS: PCP Family Medicine; Visit Provider Internal Medicine Interventional Cardiology
DX: I10 Essential (primary) hypertension (principal)
CPT/HCPCS: 36415; 80048

== ENCOUNTER 2024-10-05 09:51 | Outpatient (OUT) | payer MEDICARE, SELFPAY ==
--- OUTSIDE RECORDS SUMMARY | 2024-10-05 09:58 | XMS_ITS | CCD ---
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 Name Role Phone PHYSICIAN, DEFAULT Unavailable Unavailable PHYSICIAN, DEFAULT Unavailable Unavailable NAHUN JACKSON Unavailable Unavailable Elliott, Spencer Jo Unavailable Unavailable Unavailable FIORELLA BRONSON Consulting [...] DR COHEN Consulting Unavailable Leidy Jamison Unavailable Spencer Mast MD Unavailable Spencer Mast MD Primary Care Provider [phone] MD Spencer Mast Primary Care Provider [phone] MD Jagdeep Stiles II Attending Provider MD Spencer Mast Primary Care Provider MD Jagdeep Stiles II Attending Provider MD Lisa Ocampo Attending Provider ELILIA, EHAB Attending Unavailable EDISON HOPPER Attending Unavailable [facility] Attending Unavailable [facility] Attending Unavailable Panda COLLAR TACKERZoila Unavailable [phone] Spencer Mast MD Primary Care Provider BennettLeidy torrez APRN Attending Provider Pro Spencer Jo Primary Care Unavailable Jagdeep Stiles II Admitting UnavailJagdeep Gong II Attending Unavailabl e Bennett, Leidy D Attending Unavailable Bennett, Leidy D Admitting Unavailable Spencer Mast Primary Care Unavailable Bennett, Leidy D Admitting Unavailable Bennett, Leidy D Attending Unavailable Spencer Mast Primary Care Unavailable Pro, Spencer Jo Primary Care Unavailable Bennett, Leidy D Admitting Unavailable Bennett, Leidy D Attending Unavailable Spencer Mast Primary Care Unavailable Bennett, Leidy D Admitting Unavailable Bennett, Leidy D Attending Unavailable Spencer Mast M Primary Care Unavailable Lisa Ocampo Admitting Unavailable Lisa Ocampo Attending Unavailable BLACKSTON, OZIEL T Attending Unavailable BENNETT, LEIDY Referring Unavailable BLACKSTON, OZIEL T Attending Unavailable BENNETT, LEIDY Referring Unavailable JETHRO WARE Attending Unavailable BENNETT, LEIDY Referring Unavailable BLACKSTON, OZIEL T Attending Unavailable BENNETT, LEIDY Referring Unavailable BLACKSTON, OZIEL T Attending Unavailable BENNETT, LEIDY Referring Unavailable BLACKSTON, OZIEL T Attending Unavailable BENNETT, LEIDY Referring Unavailable ZOILA FOUNTAIN Attending Unavailable LISA SUN Attending Unavailable PRO, SPENCER M Referring Unavailable LISA SUN Attending Unavailable PRO, SPENCER M Attending Unavailable ZOILA FOUNTAIN Attending Unavailable ZOILA FOUNTAIN Attending Unavailable ZOILA FOUNTAIN Attending Unavailable ZOILA FOUNTAIN Attending Unavailable ZOILA FOUNTAIN M Attending Unavailable PANDA, ZOILA M Attending Unavailable PANDA, ZOILA M Attending Unavailable PANDA, ZOILA M Attending Unavailable PANDA, ZOILA M Attending Unavailable PANDA, ZOILA Jo Attending Unavailable OZIEL SAGE Attending Unavailable BENNETTLEIDY TORREZ Referring Unavailable JETHRO WARE Attending Unavailable BENNETT, LEIDY Referring Unavailable LEIDY JACOME Attending Unavailable LEIDY BENNETT Referring Unavailable DARRYL MONCADA Attending Unavailable BENNETTLEIDY TORREZ Referring Unavailable DARRYL MONCADA Attending Unavailable BENNETTLEIDY TORREZ Referring Unavailable PANDA, ZOILA Jo Attending Unavailable Medications Current Medications Medication Drug Class(es) Dates Sig (Normalized) Sig (Original) [id number] 60 actuat albuterol 0.09 mg/actuat metered dose inhaler (2 sources) beta2-Adrenergic Agonist Start: 06-14-2017 take 2 puff(s) by inhalation every four hours as needed Albuterol Sulfate HFA 108 (90 Base) MCG/ACT 2 puffs as needed Inhalation every 4 hrs May, Active amLODIPine 10 mg oral tablet (2 sources) Dihydropyridine Calcium Channel Alyssa take 1 tablet by mouth every twenty-four hours amLODIPine Besylate 10 MG 1 tablet Orally Once a day Active amoxicillin 875 mg oral tablet (10 sources) Penicillin-class Antibacterial Start: 08-01-2024 End: 08-11-2024 take 1 tablet by mouth in the morning amoxicillin (Amoxil) 875 MG tablet Indications: Laryngitis Take 1 tablet (875 mg) by mouth in the morning and 1 tablet (875 mg) before bedtime. Do all this for 10 days. 20 tablet 08/01/2024 08/11/2024 Active Start: 06-20-2024 End: 06-30-2024 take 1 tablet by mouth in the morning amoxicillin (Amoxil) 875 MG tablet Indications: Laryngitis Take 1 tablet (875 mg) by mouth in the morning and 1 tablet (875 mg) before bedtime. Do all this for 10 days. 20 tablet 06/20/2024 06/30/2024 Active Start: 05-02-2024 End: 05-12-2024 take 1 tablet by mouth in the morning amoxicillin (Amoxil) 875 MG tablet Indications: Laryngitis, acute Take 1 tablet (875 mg) by mouth in the morning and 1 tablet (875 mg) before bedtime. Do all this for 10 days. 20 tablet 05/02/2024 05/12/2024 Active amoxicillin 875 mg / clavulanate 125 mg oral tablet (2 sources) Penicillin-class Antibacterial Start: 08-29-2023 End: 09-08-2023 take 1 tablet by mouth in the morning amoxicillin-clavulanate (Augmentin) 875-125 MG tablet Indications: Bronchitis Take [...] aspirin 81 mg delayed release oral tablet (20 sources) Platelet Aggregation Inhibitor, Nonsteroidal Anti-inflammatory Drug Start: 08-31-2023 take 1 tablet by mouth once daily Aspirin 81 mg tablet,delayed release (DR/EC) Active 81 MG PO Daily August 31, 2023 12:00am ASPIRIN 81 MG ch ewable tablet Oral Active take 1 tablet by mouth once rafael y Aspirin EC 81 MG Oral Tablet Delayed Release TAKE 1 TABLET DAILY DIRECTED. 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 Quantity: 0 Refills: 0 Ordered: 20-Jun-2020 DO Start : 02-Oct-2019 Active Atorvastatin Jeferson cium Active carvedilol 25 mg oral tablet (20 sources) alpha-Adrenergic Alyssa, beta-Adrenergic Alyssa Start: 08-31-2023 End: 11-14-2024 take 1 tablet by mouth in the morning carvedilol (Coreg) 25 MG tablet Indications: Primary hypertension (CMS/HCC) Take 1 tablet (25 mg) by mouth in the morning and 1 tablet (25 mg) before bedtime. 180 tablet 3 11/15/2023 11/14/2024 Active take 1 tablet by mouth in the mo rning carvedilol (Coreg) 25 MG tablet Take 25 mg by mouth in the morning and 25 mg before bedtime. 0 Active chlorthalidone 25 mg oral tablet (20 sources) Thiazide-like Diuretic Start: 03-06-2024 Chlorthalidone Activ e MG PO March 06, 2024 12:00am Start: 02-01-2024 take 1 tablet by nadja th once daily chlorthalidone (Hygroton) 25 MG tablet Take 25 mg by mouth Daily 02/01/2024 Active cloNIDine hydrochloride 0.2 mg oral tablet (20 sources) Central alpha-2 Adrenergic Agonist Start: 08-31-2023 cloNIDine (Catapres) 0.2 MG tablet Indications: Hypertension secondary to other renal disorders (CMS/HCC) TAKE ONE AND ONE-HALF TABLETS BY MOUTH TWICE DAILY (MORNING AND BEFORE BEDTIME) 270 tablet 02/12/2024 Active Start: 08-31-2023 take 0.2 mg by mouth [...] 25-May-2021 Active dapagliflozin 10 mg oral tablet (20 sources) Sodium-Glucose Cotransporter 2 Inhibitor Start: 08-31-2023 take 1 tablet by mouth once daily dapagliflozin (Farxiga) 10 MG Indications: Coronary artery disease without angina pectoris, unspecified vessel or lesion type, unspecified whether saxman or transplanted heart (CMS/HCC) Take 1 tablet (10 mg) by mouth Daily 100 tablet 3 11/15/2023 Active Start: 03-10-2023 take 1 tablet by nadja th in the morning dapagliflozin (Farxiga) 10 MG Indications: Coronary artery disease without angina pectoris, unspecified vessel or lesion type, unspecified whether saxman or transplanted heart (CMS/HCC) Take 1 tablet (10 mg) by mouth in the morning. 100 tablet 3 03/10/2023 Active Start: 08-15-2019 take 1 tablet by nadja th once daily in the morning Farxiga 10 MG Oral Tablet TAKE 1 TABLET BY MOUTH EVERY MORNING Quantity: 0 Refills: 0 Ordered: 20-Jun-2020 DO Start : 15-Aug-2019 Active diclofenac sodium 0.01 mg/mg topical gel (20 sources) Nonsteroidal Anti-inflammatory Drug Start: 11-15-2023 EQ Arthritis Pain Reliever 1 % gel Indications: Osteoarthritis of multiple joints, unspecified osteoarthritis type USE DIRECTED 350 g 11/15/2023 Active Start: 08-31-2023 Diclofenac Sod ium 1 % gel Active 2 GM TOPICAL as directed as needed for knee pain 08 15August 31, 2023 12:00am Start: 08-31-2023 Diclofenac Sod ium Active 2 GM TOPICAL as directed 08 [...] 08/29/2023 Discontinued (Other) 24 hr isosorbide mononitrate 120 mg extended release oral tablet (20 sources) Nitrate Vasodilator Start: 12-06-2023 End: 12-05-2024 take 1 tablet by mouth once daily isosorbide mononitrate ER (Imdur) 120 MG 24 hr tablet Indications: 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 30 tablet 11 12/06/2023 12/05/2024 Active Start: 08-31-2023 take 1 tablet by nadja th once daily, then take 1 tablet by mouth every twenty-four hours Isosorbide Mononitrate 60 mg tablet extended release 24 hr Active 60 MG PO Daily August 31, 2023 12:00am Start: 04-19-2023 take 1 tablet by nadja th once daily in the morning isosorbide mononitrate ER (Imdur) 60 MG 24 hr tablet Indications: Secondary hypertension (CMS/HCC) TAKE 1 TABLET BY MOUTH ONCE DAILY IN THE MORNING 100 tablet 3 04/19/2023 Active Start: 09-10-2019 take 1 tablet by mouth once da ender Isosorbide Mononitrate ER 60 MG Oral Tablet Extended Release 24 Hour TAKE 1 TABLET DAILY DIRECTED. Quantity: 0 Refills: 0 Ordered: 17-Jun-2020 DO Start : 10-Sep-2019 Active Isosorbide Bison itrate ER Active lisinopril 40 mg oral tablet (20 sources) Angiotensin Converting Enzyme Inhibitor Start: 08-31-2023 End: 11-14-2024 take 1 tablet by mouth once daily lisinopril 40 MG tablet Indications: Primary hypertension (CMS/HCC) Take 1 tablet (40 mg) by mouth Daily 90 tablet 3 11/15/2023 11/14/2024 Active Start: 02-15-2023 take 1 tablet by nadja th once daily lisinopril 40 MG tablet Indications: Primary hypertension (CMS/HCC) Take 1 tablet by mouth once daily 90 tablet 3 02/15/2023 Active Start: 10-02-2019 take 1 tablet by nadja th once daily Lisinopril 40 MG Oral Tablet TAKE 1 TABLET DAILY. Quantity: 0 Refills: 0 Ordered: 20-Jun-2020 DO Start : 02-Oct-2019 Active Lisinopril Activ e meloxicam 15 mg oral tablet (1 source) Nonsteroidal Anti-inflammatory Drug Start: 08-15-2024 take 1 tablet by mouth once daily Meloxicam 15 mg tablet Active 15 MG PO daily August 15, 2024 12:00am methylPREDNISolone (10 sources) Corticosteroid Start: 08-01-2024 End: 08-08-2024 methylPREDNISolone (Medrol Dospak) 4 MG tablets Indications: Laryngitis Follow schedule on package instructions 21 tablet 08/01/2024 08/08/2024 Active Start: 06-20-2024 End: 06-27-2024 methylPREDNISolone (Medrol D ospak) 4 MG tablets Indications: Laryngitis Follow schedule on package instructions 21 tablet 06/20/2024 06/27/2024 Active Start: 08-29-2023 End: 09-05-2023 methylPREDNISolone (Medrol D ospak) 4 MG tablets Indications: Bronchitis Follow schedule on package instructions 21 tablet 0 08/29/2023 09/05/2023 Active semaglutide 7 mg oral tablet (20 sources) Start: 11-15-2023 End: 11-14-2024 take 1 tablet by mouth before mealtime semaglutide (Rybelsus) 7 MG tablet Indications: Type 2 diabetes mellitus with microalbuminuria, without long-term current use of insulin (CMS/HCC) Take 1 tablet (7 mg) by mouth in the morning. Take before meals. 90 tablet 3 11/15/2023 11/14/2024 Active take 1 tablet by mouth before me altime semaglutide (Rybelsus) 3 MG tablet Take 3 mg by mouth in the morning. Take before meals. 0 Active Semaglutide (5 sources) Start: 08-31-2023 take 3 mg by mouth o nce daily Semaglutide Active 3 MG PO Daily August 31, 2023 1:00am Start: 08-31-2023 take 3 mg by mouth once daily Semaglutide Active 3 MG PO Daily August 31, 2023 12:00am Semaglutide 3 mg tablet (5 sources) Start: 08-31-2023 take 1 tablet by mouth once daily Semaglutide 3 mg tablet Active 3 MG PO Daily August 31, 2023 12:00am terazosin 2 mg oral capsule (20 sources) alpha-Adrenergi c Alyssa Start: 08-31-2023 take 1 capsule by mouth once daily Terazosin 2 mg capsule Active 2 MG PO Daily August 31, 2023 12:00am Start: 02-16-2023 End: 08-11-2025 take 3 capsules by mouth at bedtime terazosin (Hytrin) 2 MG capsule Indications: Benign prostatic hyperplasia without lower urinary tract symptoms Take 3 capsules (6 mg) by mouth at bedtime 270 capsule 3 08/16/2024 08/11/2025 Active Start: 12-16-2019 take 1 capsule by mo ut once daily at bedtime Terazosin HCl - 1 MG Oral Capsule TAKE 1 CAPSULE AT BEDTIME NIGHTLY. Quantity: 0 Refills: 0 Ordered: 17-Jul-2020 DO Start : 16-Dec-2019 Active traZODone hydrochloride 100 mg oral tablet (20 sources) Serotonin Reuptake Inhibitor Start: 02-13-2024 End: 02-12-2025 take 1 tablet by mouth at bedtime traZODone (Desyrel) 100 MG tablet Indications: Primary insomnia Take 1 tablet (100 mg) by mouth at bedtime 30 tablet 11 02/13/2024 02/12/2025 Active Completed/Discontinued Medications Medication Drug Class(es) Dates [...] 300 mg oral tablet (6 sources) beta-Adrenergic Alyssa Start: 10-02-2019 take 1 tablet by mouth [...] 100 mg oral tablet (2 sources) beta-Adrenergic Alyssa Metoprolol Succinate 100 MG Orally Not-Taking/PRN predniSONE 20 mg oral tablet (2 sources) Start: predniSONE 20 MG 1 tablet twice daily [...] DO Start : 16-Dec-2019 Active Januvia Active spironolactone 25 mg oral tablet (17 sources) Aldosterone Antagonist Start: 08-31-2023 End: 03-06-2024 take 1 tablet by mouth once daily Spironolactone 25 mg tablet Discontinued 25 MG PO Daily August 31, 2023 12:00am March 06, 2024 7:09am Start: 05-28-2021 take 1 tablet by nadja th once daily Spironolactone 25 MG Oral Tablet TAKE 1 TABLET DAILY. Quantity: 90 Refills: 3 Ordered: 28-May-2021 Juanito Peterson MD Start : 28-May-2021 Active new Problems Active Problems Problem Classification Problem Date Documented Date Episodic/Chronic Acute myocardial infarction (20 sources) Myocardial infarction; Translations: [Non-ST elevation (NSTEMI) myocardial infarction] Onset: 06-08-2016 02-16-2023 Chronic Chronic kidney disease (2 sources) Chronic kidney disease stage 3A ; Translations: [Chronic kidney disease, stage 3a (HCC) (CMS/HCC)] 08-01-2024 Chronic Chronic kidney disease (4 sources) Chronic kidney disease; Translations: [CHRONIC KIDNEY DISEASE STAGE 3B] Onset: 06-06-2022 Chronic obstructive pulmonary disease and bronchiectasis (4 sources) Bronchitis; Translations: [Bronchitis] 08-29-2023 Episodic Complication of device; implant or graft (20 sources) 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; Translations: [Atherosclerosis of coronary artery bypass graft(s) without angina pectoris] Onset: 02-14-2023 02-14-2023 Chronic Coronary atherosclerosis and other heart disease (20 sources) Coronary arteriosclerosis; Translations: [Coronary atherosclerosis of unspecified type of vessel, saxman or graft] Onset: 02-20-2022 02-14-2023 Chronic Diabetes mellitus with complications (20 sources) Disorder of kidney due to diabetes mellitus; Translations: [Type 2 diabetes mellitus with diabetic nephropathy] Onset: 02-14-2023 02-14-2023 Chronic Diabetes mellitus without complication (20 sources) Type 2 diabetes mellitus; Translations: [Diabetes mellitus without mention of complication, type II or unspecified type, not stated as uncontrolled] Onset: 02-20-2022 02-14-2023 Chronic Disorders of lipid metabolism (20 sources) Hyperlipidemia; Translations: [Other and unspecified hyperlipidemia] Onset: 06-08-2016 02-16-2023 Chronic Esophageal disorders (20 sources) Gastroesophageal reflux disease without esophagitis; Translations: [Gastro-esophageal reflux disease without esophagitis] Onset: 06-08-2016 02-16-2023 Chronic Essential hypertension (20 sources) Benign essential hypertension; Translations: [Benign essential hypertension] Onset: 06-06-2022 Chronic Hyperplasia of prostate (20 sources) Benign prostatic hyperplasia; Translations: [Benign prostatic hyperplasia without lower urinary tract symptoms] Onset: 02-14-2023 02-14-2023 Chronic Hypertension with complications and secondary hypertension (20 sources) Renal hypertension; Translations: [Hypertension secondary to other renal disorders] Onset: 09-14-2022 02-16-2023 Chronic Occlusion or stenosis of precerebral arteries (2 sources) Occlusion and stenosis of left carotid artery; Translations: [Occlusion and stenosis of left carotid artery] Onset: 05-10-2023 Chronic Osteoarthritis (20 sources) Primary gonarthrosis, bilateral; Translations: [Bilateral primary osteoarthritis of knee] Onset: 06-08-2016 02-16-2023 Chronic Other infections; including parasitic (20 sources) Late effects of other and unspecified infectious and parasitic diseases; 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] Onset: 02-14-2023 02-14-2023 Chronic Other infections; including parasitic (20 sources) Sequelae of infectious disease; Translations: [Sequelae of other specified infectious and parasitic diseases] Onset: 07-20-2021 02-16-2023 Chronic Other lower respiratory disease (2 sources) Cough; Translations: [Cough] Episodic Other lower respiratory disease (2 sources) Dyspnea; Translations: [Dyspnea] Episodic Other nervous system disorders (20 sources) Chronic pain; Translations: [Other chronic pain] Onset: 05-02-2024 03-13-2024 Chronic Other nervous system disorders (1 source) Other chronic pain; Translations: [Other chronic pain] 03-13-2024 Chronic Other non-traumatic joint disorders (4 sources) Pain in right knee; Translations: [Pain in joint, lower leg] 08-31-2023 Episodic Other nutritional; endocrine; and metabolic disorders (4 sources) Obesity; Translations: [Obesity, unspecified] Chronic Other nutritional; endocrine; and metabolic disorders (20 sources) Hypomagnesemia; Translations: [Hypomagnesemia] Onset: 02-14-2023 02-14-2023 Chronic Other nutritional; endocrine; and metabolic disorders (2 sources) Obesity caused by energy imbalance; Translations: [Morbid (severe) obesity due to excess calories] 08-01-2024 Chronic Other nutritional; endocrine; and metabolic disorders (2 sources) Body mass index 30+ - obesity; Translations: [Body mass index (BMI) 38.0-38.9, adult] 08-01-2024 Chronic Other upper respiratory infections (8 sources) Acute laryngitis; Translations: [Acute laryngitis] 05-02-2024 Episodic Otitis media and related conditions (2 sources) Non-suppurative otitis media; Translations: [Unspecified nonsuppurative otitis media, left ear] 08-29-2023 Episodic Pulmonary heart disease (2 sources) Pulmonary hypertension; Translations: [Pulmonary hypertension, unspecified] 08-01-2024 Chronic Screening and history of mental health and substance abuse codes (4 sources) Ex-smoker; Translations: [Personal history of tobacco use] Episodic Comment on above: Quit 43 years ago; Sprains and strains (20 sources) Shoulder strain; Translations: [Strain of unspecified muscle, fascia and tendon at shoulder and upper arm level, right arm, initial encounter] Onset: 07-26-2024 07-09-2024 Episodic Unclassified (3 sources) CHRN KIDNEY DISEASE STG 3 UNSP; Translations: [CHRN KIDNEY DISEASE STG 3 UNSP] Onset: 09-12-2022 Unclassified (1 source) Resistant hypertension; Translations: [Resistant hypertension] Onset: 05-11-2022 Unclassified (1 source) Pain in right knee; Translations: [Pain in right knee] Onset: 08-31-2023 Past or Other Problems Problem Classification Problem Date Documented Da te Episodic/Chronic Influenza (20 sources) Influenza due to other identified influenza virus with other respiratory manifestations; Translations: [Influenza] Onset: 08-07-2023 Episodic Nonspecific chest pain (5 sources) Chest pain, unspecified; Translations: [CHEST PAIN UNSPECIFIED] Onset: 01-31-2022 Episodic Open wounds of head; neck; and trunk (20 sources) Laceration of mouth; Translations: [Laceration without foreign body of oral cavity, initial encounter] Onset: 05-02-2024 06-28-2023 Episodic Comment on above: Problem List clean-u p per request of Phys. 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 CURRENT DRUG THERAPY] Onset: 01-31-2022 Episodic Other aftercare (1 source) penitentiary (current) use of aspirin; Translations: [NURSING HOME CURRENT USE OF ASPIRIN] Onset: 01-31-2022 Episodic Other and unspecified benign neoplasm (20 sources) Adenomatous polyp of colon ; Translations: [Benign neoplasm of sigmoid colon] Onset: 11-07-2023 11-07-2023 Episodic Other circulatory disease (20 sources) Elevated blood pressure; Translations: [Elevated blood-pressure reading, without diagnosis of hypertension] Onset: 05-02-2024 06-28-2023 Episodic Comment on above: Problem List clean-u p per request of Phys. EHR Cmte Other connective tissue disease (20 sources) Muscle weakness; Translations: [Muscle weakness (generalized)] Onset: 06-08-2016 02-16-2023 Episodic Other gastrointestinal disorders (20 sources) Stool DNA-based colorectal cancer screening positive; Translations: [Other fecal abnormalities] Onset: 10-10-2023 10-10-2023 Episodic Other gastrointestinal disorders (1 source) Other fecal abnormalities; Translations: [Other fecal abnormalities] Onset: 10-30-2023 Episodic Other injuries and conditions due to external causes (1 source) Underdosing of loop [high-ceiling] diuretics, initial encounter; Translations: [UNDERDOS LOOP HI-CEIL DIURETIC INIT] Onset: 01-31-2022 Episodic Other injuries and conditions due to external causes (1 source) Underdosing of coronary vasodilators, initial encounter; Translations: [UNDRDOS COR VASODILATORS INIT ENC] Onset: 01-31-2022 Episodic Other non-traumatic joint disorders (20 sources) Pain in left knee; Translations: [Left knee pain] Onset: 08-31-2023 08-28-2023 Episodic Residual codes; unclassified (1 source) Patient's intentional underdosing of medication regimen for other reason; Translations: [PT INTENT UNDERDOS MED OTH REASON] Onset: 01-31-2022 Episodic Skull and face fractures (20 sources) Fracture of maxilla; Translations: [Maxillary fracture, unspecified side, initial encounter for closed fracture] Onset: 05-02-2024 06-28-2023 Episodic Comment on above: Problem List clean-u p per request of Phys. EHR Cmte Syncope (2 sources) Syncope and collapse; Translations: [Syncope and collapse] Onset: 05-10-2023 Episodic Unclassified (1 source) CHRN KIDNEY DISEASE STG 3 UNSP; Translations: [CHRN KIDNEY DISEASE STG 3 UNSP] Onset: 09-08-2022 Unclassified (1 source) Contact with and (suspected) exposure to covid-19 Z20.822 Unclassified (1 source) Resistant hypertension; Translations: [Resistant hypertension] Onset: 04-19-2023 Unclassified (2 sources) Acute pain of right knee 05-02-2024 Results Test Name Value Interpretation Reference Range Facility MR shoulder RT wo conon MR shoulder RT wo con [facility] Main [facility] [address] [place] [address] MRI Report Signed Patient: Lisa Jurado MR#: [id number] : 1955 Acct:[id number] Age/Sex: 69 / M ADM Date: 07/22/24 Loc: [facility] Room: Type: [facility] Attending Dr: Leidy Bennett APRN Copies to: Leidy Bennett APRN Ordering Provider: Leidy Bennett APRN Date of Service: 07/22/24 MR/MR shoulder RT wo con: pain, injury MR RIGHT SHOULDER CLINICAL INFORMATION: Right shoulder pain, evaluate for rotator cuff tear. COMPARISON: 06/25/2024. PROCEDURE: Axial, oblique coronal, and oblique sagittal long TR images of the shoulder were obtained. FINDINGS: ROTATOR CUFF AND ASSOCIATED STRUCTURES Biceps Tendon: Increased signal intensity along the proximal long head of the biceps tendon is noted with fluid along the tendon sheath suggesting tenosynovitis. Rotator cuff: There is no complete or bursal/articular sided partial rotator cuff tear. The subscapularis constituent of the rotator cuff is intact. Musculature: There is no muscular tear, contusion, or atrophy. Bursa: No bursal effusion or thickening is seen. OSSEOUS STRUCTURES Acromioclavicular joint: There are moderate degenerative changes of the acromioclavicular joint. This causes downward displacement of the supraspinatus tendon near the musculotendinous junction. A type 2 acromion configuration is noted. There is no anterior or lateral acromial downsloping. Bones: No Hill-Sachs, reverse Hill-Sachs, or bony Bankart lesions are seen. There are no fractures or regions of abnormal bone marrow signal intensity. GLENOHUMERAL JOINT Joint: There is no glenohumeral joint effusion. Cartilage: There is partial thickness chondromalacia on both sides of the joint space. Labrum: Increased signal intensity is noted in the superior glenoid labrum consistent with a minimally displaced labral tear. This is best seen on coronal STIR image 14 and 15. Other support structures: No capsular or ligamentous abnormality is seen. MR/MR shoulder RT wo con IMPRESSION: 1. Increased signal intensity is noted in the superior glenoid labrum consistent with a minimally displaced labral tear. This is best seen on coronal STIR image 14 and 15. 2. Increased signal intensity along the proximal long head of the biceps tendon is noted with fluid along the tendon sheath suggesting tenosynovitis. 3. There are moderate degenerative changes of the acromioclavicular joint. This causes downward displacement of the supraspinatus tendon near the musculotendinous junction. 4. No definite rotator cuff pathology is visualized. Impression dictated by: Valeriano Fuller M.D.07/22/2024 6:44 PM Dictation Location: [place] [address] Transcribed By: [facility] 07/22/24 1844 Dictated By: Valeriano Fuller II, MD 07/22/24 183 Signed By: 07/22/24 1844 Normal [facility] Magnetic resonance imaging r eportOrdered By: Valeriano Fuller on 07-22-2024 Study report [facility] Main [place] [address] [place] [address] MRI Report Signed Patient: Lisa Jurado MR#: [id number] : 1955 Acct:[id number] Age/Sex: 69 / M ADM Date: 5 [facility] Attending Dr: Leidy Bennett APRN Copies to: Leidy Bennett APRN~ Ordering Provider: Leidy Bennett APRN Date of Service: 07/22/24 MR/MR shoulder RT wo con: pain, injury MR RIGHT SHOULDER CLINICAL INFORMATION: Right shoulder pain, evaluate for rotator cuff tear. COMPARISON: 06/25/2024. PROCEDURE: Axial, oblique coronal, and oblique sagittal long TR images of the shoulder were obtained. FINDINGS: ROTATOR CUFF AND ASSOCIATED STRUCTURES Biceps Tendon: Increased signal intensity along the proximal long head of the biceps tendon is noted with fluid along the tendon sheath suggesting tenosynovitis. Rotator cuff: There is no complete or bursal/articular sided partial rotator cuff tear. The subscapularis constituent of the rotator cuff is intact. Musculature: There is no muscular tear, contusion, or atrophy. Bursa: No bursal effusion or thickening is seen. OSSEOUS STRUCTURES Acromioclavicular joint: There are moderate degenerative changes of the acromioclavicular joint. This causes downward displacement of the supraspinatustendon near the musculotendinous junction. A type 2 acromion configuration is noted. There is no anterior or lateral acromial downsloping. Bones: No Hill-Sachs, reverse Hill-Sachs, or bony Bankart lesions are seen. There are no fractures or regions of abnormal bone marrow signal intensity. GLENOHUMERAL JOINT Joint: There is no glenohumeral joint effusion. Cartilage: There is partial thickness chondromalacia on both sides of the joint space. Labrum: Increased signal intensity is noted in the superior glenoid labrum consistent with a minimally displaced labral tear. This is best seen on coronalSTIR image 14 and 15. Other support structures: No capsular or ligamentous abnormality is seen. MR/MR shoulder RT wo con IMPRESSION: 1. Increased signal intensity is noted in the superior glenoid labrum consistentwith a minimally displaced labral tear. This is best seen on coronal STIR image14 and 15. 2. Increased signal intensity along the proximal long head of the biceps tendon is noted with fluid along the tendon sheath suggesting tenosynovitis. 3. There are moderate degenerative changes of the acromioclavicular joint. Thiscauses downward displacement of the supraspinatus tendon near the musculotendinous junction. 4. No definite rotator cuff pathology is visualized. Impression dictated by: Valeriano Fuller M.D.07/22/2024 6:44 PM Dictation Location: RADIO-PC-17 Transcribed By: ONEAL 07/22/241843 Dictated By: Valeriano Fuller II, MD 07/22/241831 Signed By: 07/22/241843 [facility] Work Phone: XR shoulder RT min 2V*on XR shoulder RT min 2V* [facility] Main [place] [address] [place] [address] XRay Report Signed Patient: Lisa Jurado SR MR#: [id number] : 1955 Acct:[id number] Age/Sex: 69 / M ADM Date: 06/25/24 Loc: [place] Room: Type: [facility] Attending Dr: Leidy Bennett APRN Copies to: Leidy Bennett APRN Ordering Provider: Leidy Bennett APRN Date of Service: 06/25/24 XR/XR shoulder RT min 2V*: [facility] RIGHT SHOULDER INJURY RIGHT SHOULDER - - 3 views CLINICAL HISTORY: Right shoulder injury yesterday. Now with pain.. COMPARISON: None FINDINGS: Mild degenerative changes of the AC and glenohumeral joints without acute bony process. XR/XR shoulder RT min 2V* IMPRESSION: MILD DEGENERATIVE CHANGES OF THE RIGHT SHOULDER WITHOUT ACUTE BONY PROCESS. Impression dictated by: Godwin Martin Jr., D.OVilma06/25/2024 3:37 PM Dictation Location: RADIO-PC-18 Transcribed By: ONEAL 06/25/24 153 Dictated By: Godwin Martin Jr, DO 06/25/24 153 Signed By: 06/25/24 1537 Normal [facility] Office Visiton 02-26-2024 Follow-up visit [id number] JuradoViri rd Sr. 1955 M Date Provider Department Center 02/26/2024 Pj-JUDI WILSON [facility] Family History Problem Relation Age of Onset Coronary artery disease Mother Coronary artery disease Father Coronary artery disease Brother ALS Brother Stroke Brother Family Status - Relation Status Age at Mother Father Brother Level of Service:21571 MS OFFICE/OUTPATIENT ESTABLISHED LOW MDM 20 MIN Normal [facility] Office Visiton 02-01-2024 Follow-up visit [id number] Viri Jurado rd Sr. 1955 M Date Provider Department Center 02/01/2024 271-EDUARDO, [facility] Family History Problem Relation Age of Onset Coronary artery disease Mother Coronary artery disease Father Coronary artery disease Brother ALS Brother Stroke Brother Family Status - Relation Status Age at Mother Father Brother Level of Service:69240 MS OFFICE/OUTPATIENT ESTABLISHED MOD MDM 30 MIN Normal [facility] Capillary blood glucose melania urement by glucometer (mass/volume)Ordered By: Lisa Ocampo on 10-30-2023 Glucose [Mass/Vol] 168 mg/dL Normal [facility] Comment on above: Random Glucose Refer ence Range is dependent on time and content of last meal. Glucose of more than 200 mg/dL in a nonstressed, ambulatory subject supports the diagnosis of Diabetes Mellitus. Result Comment: [place] Glucose Reference Range is dependent on time and content of last meal. Glucose of more than 200 mg/dL in a nonstressed, ambulatory subject supports the diagnosis of Diabetes Mellitus. Performed By: #### G LULS #### Point of Care testing , Glucose Poct Glucometerson 0 10-30-2023 Commemt1 Glu2: Cleaned Meter Normal [facility] Comment on above: Result Comment: PERF ORMED BY: [facility] [address] [place] [address] PATHOLOGIST BUFFING AND SUEDING MACHINE OPERATOR HENOK YANEZ M.D. Performed By: #### G LULS #### Point of Care testing , Ck 10-30-2023 L Specimen: [id number] Received: 10/30/23 Status: ROSALINDA Keane Num: [id number] Spec Type: Surgical Subm Dr: Lisa Ocampo MD Tissues: A Colon Biopsy (POLYP AT 20 CM) Procedures: HE/2, Gross/Micro L4 Age/ Patient Sex Location Account Attending Physician Lisa Jurado SR 68/M [place] [id number] Lisa Ocampo MD SPEC NUM: [id number] RECD: 10/30/23 STATUS: ROSALINDA LORENZANACherise NUM: [id number] IZAIAH: 10/30/[address]: Lisa Ocampo MD ENTERED: 10/30/[address] [facility] [address]: SPEC TYPE: Surgical DEPT: S ORDERED: HE/2, Gross/Micro L4 ORDERED: HE/2, Gross/Micro L4 Pathological Diagnosis Colon polyp biopsy at 20 cm: -Small tubular adenoma, removed Gross Description In formalin labeled polyp at 20 cm is one 0.6 x 0.4 x 0.2 cm piece of samuel-pink mucosa. Submitted entirely in A1. RG/CYC Clinical history: Positive Cologuard CPT Codes 84182 ---- ---- Specimen: Received: 10/30/23 Status: ROSALINDA Keane Num: [id number] Spec Type: Surgical Subm Dr: Lisa Ocampo MD Tissues: A Colon Biopsy (POLYP AT 20 CM) Procedures: NIKI/2, Gross/Micro L4 ---- Patient: Lisa Jurado [id number] (Continued) ---- Signed (signature on file) Tameka Lacey MD 11/01/23 1250 Normal [facility] No Panel InformationOrdered By: Lisa Ocampo on 10-30-2023 Bedside Glucose Comment Glu2: cleaned meter [facility] XR knee BI 4Von 08-31-2023 XR knee BI 4V [facility] [place] [address] XRay Report Signed Patient: Lisa Jurado SR MR#: [id number] : 1955 Acct:[id number] Age/Sex: 68 / M ADM Date: 08/31/23 Loc: [facility] Room: Type[facility] Attending Dr: Jagdeep Stiles II, MD Copies to: Jagdeep Stiles MD Ordering Provider: Jagdeep Stiles MD Date of Service: 08/31/23 XR/XR pelvis 1-2V: M25.562 - Pain in left knee ([id number]) XR/XR knee BI 4V: M25.561 - Pain [...] Martin Jr., D.O.08/31/2023 3:26 PM Dictation Location: [place] [address] Transcribed By: [facility] 08/31/23 1526 Dictated By: Godwin Martin Jr, DO 08/31/23 1524 Signed By: 08/31/23 1526 Normal [facility] COVID/FLU/RSV RT-PCRon 08-02 SARS-CoV-2 (COVID-19) RNA ANGÉLICA+probe Ql (Unsp spec) Negative [employer] Other COVID/FLU/RSV RT-PCR Positive [employer] Other COVID/FLU/RSV RT-PCR Negative [employer] Other 36on 06-21-2023 36 Please let him [...] month with me or Dr. Wilson. Thanks Normal [facility] 36 Depends on the findings from his event monitor. Can we see if we can obtain a pre-limary report from his event monitor? Normal [facility] Telephoneon 06-20-[id number] L Sr. 1955 M Date Provider Department Center 06/20/2023 JUS MAYERS Family History Problem Relation Age of Onset Coronary artery disease Mother Coronary artery disease Father Coronary artery disease Brother ALS Brother Stroke Brother Family Status - Relation Status Age at Mother Father Brother Normal [facility] Orders Onlyon 06-15-2023 Orders Only [id number] Viri Jurado rd L Sr. 1955 M [facility] Provider Department Center 06/15/2023 Clarence-JUS [facility] Family History Problem Relation Age of Onset Coronary artery disease Mother Coronary artery disease Father Coronary artery disease Brother ALS Brother Stroke Brother Family Status - Relation Status Age at Mother Father Brother [facility] 36on 06-12-2023 36 Please let him know his carotid US showed moderate narrowing in his left carotid, mild narrowing on the right. This would not cause his syncope. Continue medication management for this with ASA and atorvastatin. If he has not had a recent lipid panel done recommend he has one so we can optimize his cholesterol medications. Thanks [facility] Telephoneon 06-12-[id number] L Sr. 1955 [facility] Provider Department Wilson 06/12/2023 EDISON COLE Family History Problem Relation Age of Onset Coronary artery disease Mother Coronary artery disease Father Coronary artery disease Brother ALS Brother Stroke Brother Family Status - Relation Status Age at Mother Father Brother [facility] Office Visiton 05-10-2023 Follow-up visit [id number] Viri Jurado rd L Sr. 1955 [facility] Provider Department Center 05/10/2023 EDISON COLE Family History Problem Relation Age of Onset Coronary artery disease Mother Coronary artery disease Father Coronary artery disease Brother ALS Brother Stroke Brother Family Status - Relation Status Age at Mother Father Brother Level of Service:68659 MS OFFICE/OUTPATIENT ESTABLISHED MOD MDM 30-39 MIN [facility] Office Visiton 04-19-2023 Follow-up visit [id number] Viri Jurado rd L Sr. 1955 [facility] Provider Department Center 04/19/2023 Pj-JUDI WILSON Family History Problem Relation Age of Onset Coronary artery disease Mother Coronary artery disease Father Coronary artery disease Brother ALS Brother Stroke Brother Family Status - Relation Status Age at Mother Father Brother Level of Service:93006 MS OFFICE/OUTPATIENT ESTABLISHED MOD MDM 30-39 MIN [facility] Orders Onlyon 04-19-2023 Orders Only [id number] Joe Juradojordan lozoya L Sr. 1955 M Date Provider Department Center 04/19/2023 JUS MAYERS [facility] Family History Problem Relation Age of Onset Coronary artery disease Mother Coronary artery disease Father Coronary artery disease Brother ALS Brother Stroke Brother Family Status - Relation Status Age at Mother Father Brother Normal [facility] ALBUMINon 09-08-2022 Albumin [Mass/Vol] 3.7 g/dL Normal 3.4-5.0 [facility] Comment on above: Performed By: #### P HOS, BMP, ALB, MG #### [facility] [address] [place] [address] Dr. Diamante Lacey CREATININE URINEon URINE CREAT 129.52 mg/dL Normal 20.00-300.0 0 [facility] Comment on above: Performed By: #### C BIRGIT PROTU #### [facility] [address] [place] [address] Dr. Diamante Lacey HEMOGLOBINon 09-08-2022 Hemoglobin (Bld) [Mass/Vol] 13.2 g/dL Critically low 14.0-18.0 [facility] Comment on above: Performed By: #### H GB #### [facility] [address] [place] [address] Dr. Diamante Lacey MAGNESIUMon 09-08-2022 Magnesium [Mass/Vol] 1.5 mg/dL Critically low 1.8-2.4 [facility] Comment on above: Performed By: #### P HOS, BMP, ALB, MG #### [facility] [address] [place] [address] Dr. Diamante Lacey PHOSPHORUSon 09-08-2022 Phosphate [Mass/Vol] 3.3 mg/dL Normal 2.6-4.7 [facility] Comment on above: Performed By: #### P HOS, BMP, ALB, MG #### [facility] [address] [place] [address] Dr. Diamante Lacey PROF CHEM 8 (BAS METB)on Anion gap [Moles/Vol] 9.6 mmol/L Normal [facility] Comment on above: Performed By: #### P HOS, BMP, ALB, MG #### [facility] [address] [place] [address] Dr. Diamante Lacey Calcium [Mass/Vol] 8.9 mg/dL Normal 8.5-10.1 [facility] Comment on above: Performed By: #### P HOS, BMP, ALB, MG #### [facility] [address] [place] [address] [address] Diamante Lacey Chloride [Moles/Vol] 106 mmol/L Normal 98-107 [facility] Comment on above: Performed By: #### P HOS, BMP, ALB, MG #### [facility] [address] [place] [address] Dr. Diamante Lacey CO2 [Moles/Vol] 30.5 mmol/L Normal 21.0-32.0 [facility] Comment on above: Performed By: #### P HOS, BMP, ALB, MG #### [facility] [address] [place] [address] Dr. Diamante Lacey Creatinine [Mass/Vol] 1.34 mg/dL Critically high 0.70-1.30 [facility] Comment on above: Performed By: #### P HOS, BMP, ALB, MG #### [facility] [address] [place] [address] Dr. Diamante Lacey EGFR-AF KENYAN >60 Normal >=60 [facility] Comment on above: Performed By: #### P HOS, BMP, ALB, MG #### [facility] [address] [place] [address] Dr. Diamante Lacey EGFR-NON AF KENYAN 53 mL/min/1.73m2 Critically low >=60 [facility] Comment on above: Performed By: #### P HOS, BMP, ALB, MG #### [facility] [address] [place] [address] Dr. Diamante Lacey Glucose [Mass/Vol] 121 mg/dL Critically high 74-106 T [facility] Comment on above: Performed By: #### P HOS, BMP, ALB, MG #### [facility] [address] [place] [address] Dr. Diamante Lacey Potassium [Moles/Vol] 4.1 mmol/L Normal 3.5-5.1 [facility] Comment on above: Performed By: #### P HOS, BMP, ALB, MG #### [facility] [address] [place] [address] Dr. Diamante Lacey Sodium [Moles/Vol] 142 mmol/L Normal 136-145 [facility] Comment on above: Performed By: #### P HOS, BMP, ALB, MG #### [facility] [address] [place] [address] Dr. Diamante Lacey Urea nitrogen [Mass/Vol] 19.0 mg/dL Critically high 7.0-18.0 [facility] Comment on above: Performed By: #### P HOS, BMP, ALB, MG #### [facility] [address] [place] [address] Dr. Diamante Lacey Urea nitrogen/Creatinine [Mass ratio] 14.2 mg/mg Normal [facility] Comment on above: Performed By: #### P HOS, BMP, ALB, MG #### [facility] [address] [place] [address] Dr. Diamante Lacey PROTEIN RAND URINEon 023 UR PROT 15.5 mg/dL Critically high <=11.9 [facility] Comment on above: Performed By: #### C REAU, PROTU #### [facility] [address] [place] [address] Dr. Diamante Lacey CBC AUTO DIFFon 06-06-2022 BASO # 0.1 103/ul Normal 0.0-0.1 [facility] Comment on above: Performed By: #### B MP #### [facility] [address] [place] [address] Dr. Diamante Lacey Basophils/100 WBC (Bld) 0.8 % Normal 0.2-2.0 [facility] Comment on above: Performed By: #### B MP #### [facility] [address] [place] [address] Dr. Diamante Lacey EO # 0.2 103/ul Normal 0.0-0.7 [facility] Comment on above: Performed By: #### B MP #### [facility] [address] [place] [address] Dr. Diamante Lacey Eosinophils/100 WBC (Bld) 3.0 % Normal 0.9-7.0 [facility] Comment on above: Performed By: #### B MP #### [facility] [address] [place] [address] Dr. Diamante Lacey Erythrocyte distribution width (RBC) [Ratio] 14.2 % Normal 11.0-15.0 [facility] Comment on above: Performed By: #### B MP #### [facility] [address] [place] [address] Dr. Diamante Lacey Hematocrit (Bld) [Volume fraction] 41.4 % Critically low 42.0-54.0 [facility] Comment on above: Performed By: #### B MP #### [facility] [address] [place] [address] Dr. Diamante Lacey Hemoglobin (Bld) [Mass/Vol] 14.0 g/dL Normal 14.0-18.0 [facility] Comment on above: Performed By: #### B MP #### [facility] [address] [place] [address] Dr. Diamante Lacey IG # 0.03 10e3/ul Normal 0.00-0.03 [facility] Comment on above: Performed By: #### B MP #### [facility] [address] [place] [address] Dr. Diamante Lacey IG % 0.4 % Normal 0.0-0.[address] [facility] Comment on above: Performed By: #### B MP #### [facility] [address] [place] [address] Dr. Diamante Lacey LYMPH # 1.8 103/ul Normal 1.2-3.8 [facility] Comment on above: Performed By: #### B MP #### [facility] [address] [place] [address] Dr. Diamante Lacey Lymphocytes/100 WBC (Bld) 23.0 % Normal 20.5-60.0 [facility] Comment on above: Performed By: #### B MP #### [facility] [address] [place] [address] Dr. Diamante Lacey MANUAL DIFF REQ NO Normal [facility] Comment on above: Performed By: #### B MP #### [facility] [address] [place] [address] Dr. Diamante Lacey MCH (RBC) [Entitic mass] 30.3 pg Normal 25.9-34.0 [facility] Comment on above: Performed By: #### B MP #### [facility] [address] [place] [address] Dr. Diamante Lacey MCHC (RBC) [Mass/Vol] 33.8 g/dL Normal 29.9-35.2 [facility] Comment on above: Performed By: #### B MP #### [facility] [address] [place] [address] Dr. Diamante Lacey MCV (RBC) [Entitic vol] 89.6 fL Normal 80.0-94.0 [facility] Comment on above: Performed By: #### B MP #### [facility] [address] [place] [address] Dr. Diamante Lacey MONO # 0.8 103/ul Normal 0.3-0.8 [facility] Comment on above: Performed By: #### B MP #### [facility] [address] [place] [address] Dr. Diamante Lacey Monocytes/100 WBC (Bld) 9.8 % Normal 1.7-12.0 [facility] Comment on above: Performed By: #### B MP #### [facility] [address] [place] [address] Dr. Diamante Lacey NEUT # 5.0 103/ul Normal 1.4-6.5 [facility] Comment on above: Performed By: #### B MP #### [facility] [address] [place] [address] Dr. Diamante Lacey Neutrophils/100 WBC (Bld) 63.0 % Normal 43.0-75.0 [facility] Comment on above: Performed By: #### B MP #### [facility] [address] [place] [address] [address] Diamante Lacey Platelet mean volume (Bld) [Entitic vol] 10.4 fL Normal 9.5-13.5 [facility] Comment on above: Performed By: #### B MP #### [facility] [address] [place] [address] [address] Diamante Lacey PLT 215 103/ul Normal 150-[address] [facility] Comment on above: Performed By: #### B MP #### [facility] [address] [place] [address] [address] Diamante Lacey RBC 4.62 106/ul Critically low 4.70-6.10 [facility] Comment on above: Performed By: #### B MP #### [facility] [address] [place] [address] Dr. Diamante Lacey WBC 7.9 103/ul Normal 4.0-11.0 [facility] Comment on above: Performed By: #### B MP #### [facility] [address] [place] [address] Dr. Diamante Lacey CREATININE URINEon 2 URINE CREAT 46.09 mg/dL Normal 20.00-300.0 0 [facility] Comment on above: Performed By: #### B MP #### [facility] Laboratory [address] [address] [address] Diamante Lacey MAGNESIUMon 06-06-2022 Magnesium [Mass/Vol] 2.2 mg/dL Normal 1.8-2.4 [facility] Comment on above: Performed By: #### B MP #### [facility] Laboratory [address] [address] [address] Diamante Lacey PHOSPHORUSon 06-06-2022 Phosphate [Mass/Vol] 4.9 mg/dL Critically high 2.6-4.7 [facility] Comment on above: Performed By: #### B MP #### [facility] Laboratory [address] [place] [address] Dr. Diamante Lacey PROF 14(COMP METB)on 06-06- 022 Albumin [Mass/Vol] 3.9 g/dL Normal 3.4-5.0 [facility] Comment on above: Performed By: #### B MP #### [facility] Laboratory [address] [place] [address] Dr. Diamante Lacey Albumin/Globulin [Mass ratio] 1.3 {ratio} Normal [facility] Comment on above: Performed By: #### B MP #### [facility] Laboratory [address] [place] [address] Dr. Diamante Lacey ALP [Catalytic activity/Vol] 80 U/L Normal 46-116 [facility] Comment on above: Performed By: #### B MP #### [facility] [address] [place] [address] Dr. Diamante Lacey ALT [Catalytic activity/Vol] 32 U/L Normal 16-63 [facility] Comment on above: Performed By: #### B MP #### [facility] Laboratory [address] [place] [address] Dr. Diamante Lacey Anion gap [Moles/Vol] 10.5 mmol/L Normal [facility] Comment on above: Performed By: #### B MP #### [facility] [address] [place] [address] Dr. Diamante Lacey AST [Catalytic activity/Vol] 8 U/L Critically low 15-37 [facility] Comment on above: Performed By: #### B MP #### [facility] [address] [place] [address] Dr. Diamante Lacey Bilirubin [Mass/Vol] 0.6 mg/dL Normal 0.2-1.0 [facility] Comment on above: Performed By: #### B MP #### [facility] [address] [place] [address] Dr. Diamante Lacey Calcium [Mass/Vol] 9.4 mg/dL Normal 8.5-10.1 [facility] Comment on above: Performed By: #### B MP #### [facility] [address] [place] [address] Dr. Diamante Lacey Chloride [Moles/Vol] 103 mmol/L Normal 98-107 [facility] Comment on above: Performed By: #### B MP #### [facility] [address] [address] [address] Diamante Lacey CO2 [Moles/Vol] 30.7 mmol/L Normal 21.0-32.0 [facility] Comment on above: Performed By: #### B MP #### [facility] [address] [address] [address] Diamante Lacey Creatinine [Mass/Vol] 1.72 mg/dL Critically high 0.70-1.30 [facility] Comment on above: Performed By: #### B MP #### [facility] [address] [place] [address] Dr. Diamante Lacey EGFR-AF KENYAN 48 mL/min/1.73m2 Critically low >=60 [facility] Comment on above: Performed By: #### B MP #### [facility] [address] [place] [address] Dr. Diamante Lacey EGFR-NON AF KENYAN 40 mL/min/1.73m2 Critically low >=60 [facility] Comment on above: Performed By: #### B MP #### [facility] [address] [place] [address] Dr. Diamante Lacey Globulin (S) [Mass/Vol] 3.1 g/dL Normal [facility] Comment on above: Performed By: #### B MP #### [facility] [address] [address] [address] Diamante Lacey Glucose [Mass/Vol] 137 mg/dL Critically high 74-106 [facility] Comment on above: Performed By: #### B MP #### [facility] [address] [address] [address] Diamante Lacey Potassium [Moles/Vol] 4.2 mmol/L Normal 3.5-5.1 [facility] Comment on above: Performed By: #### B MP #### [facility] [address] [place] [address] Dr. Diamante Lacey Protein [Mass/Vol] 7.0 g/dL Normal 6.4-8.2 [facility] Comment on above: Performed By: #### B MP #### [facility] [address] [place] [address] Dr. Diamante Lacey Sodium [Moles/Vol] 140 mmol/L Normal 136-145 [facility] Comment on above: Performed By: #### B MP #### [facility] [address] [address] [address] Diamante Lacey Urea nitrogen [Mass/Vol] 32.0 mg/dL Critically high 7.0-18.0 [facility] Comment on above: Performed By: #### B MP #### [facility] [address] [place] [address] Dr. Diamante Lacey Urea nitrogen/Creatinine [Mass ratio] 18.6 mg/mg Normal [facility] Comment on above: Performed By: #### B MP #### [facility] [address] [place] [address] Dr. Diamante Lacey PROTEIN RAND URINEon 022 UR PROT <6.0 Normal <=11.9 [facility] Comment on above: Performed By: #### B MP #### [facility] [address] [place] [address] Dr. Diamante Lacey UA RANDOM W/MICROSCOPICon BACTERIA NONE SEEN Normal NONE SEEN [facility] Comment on above: Performed By: #### B MP #### [facility] [address] [place] [address] Dr. Diamante Lacey Bilirubin Ql (U) Negative Normal NEGATIVE [facility] Comment on above: Performed By: #### B MP #### [facility] [address] [place] [address] Dr. Diamante Lacey CAST NONE SEEN Normal NONE SEEN [facility] Comment on above: Performed By: #### B MP #### [facility] [address] [place] [address] Dr. Diamante Lacey Clarity (U) CLEAR Normal CLEAR [facility] Comment on above: Performed By: #### B MP #### [facility] [address] [place] [address] Dr. Diamante Lacey Color (U) LT. YELLOW Normal YELLOW [facility] Comment on above: Performed By: #### B MP #### [facility] [address] [place] [address] Dr. Diamante Lacey Crystals LM Nom (Urine sed) NONE SEEN Normal NONE SEEN [facility] Comment on above: Performed By: #### B MP #### [facility] [address] [place] [address] Dr. Diamante Lacey Epithelial cells LM Ql (Urine sed) RARE Normal NONE SEEN /RARE [facility] Comment on above: Performed By: #### B MP #### [facility] [address] [place] [address] Dr. Diamante Lacey Glucose Ql (U) >1000 Abnormal NEGATIVE [facility] Comment on above: Performed By: #### B MP #### [facility] [address] [place] [address] Dr. Diamante Lacey Hemoglobin Ql (U) Negative Normal NEGATIVE [facility] Comment on above: Performed By: #### B MP #### [facility] [address] [place] [address] Dr. Diamante Lacey Ketones Ql (U) Negative Normal NEGATIVE [facility] Comment on above: Performed By: #### B MP #### [facility] [address] [place] [address] Dr. Diamante Lacey LEUKOCYTES Negative Normal NEGATIVE [facility] Comment on above: Performed By: #### B MP #### [facility] [address] [place] [address] Dr. Diamante Lacey MUCOUS NONE SEEN Normal NONE SEEN [facility] Comment on above: Performed By: #### B MP #### [facility] [address] [place] [address] Dr. Diamante Lacey Nitrite Ql (U) Negative Normal NEGATIVE [facility] Comment on above: Performed By: #### B MP #### [facility] [address] [place] [address] Dr. Diamante Lacey pH (U) 5.5 [pH] Normal 5-[address] [facility] Comment on above: Performed By: #### B MP #### [facility] [address] [place] [address] Dr. Diamante Lacey RBC NONE SEEN Abnormal 0-2 [facility] Comment on above: Performed By: #### B MP #### [facility] [address] [place] [address] Dr. Diamante Lacey SPEC GRAVITY 1.020 Normal 1.005-<=1.0 25 [facility] Comment on above: Performed By: #### B MP #### [facility] [address] [place] [address] Dr. Diamante Lacey UA PROTEIN Negative Normal NEGATIVE/ TRACE [facility] Comment on above: Performed By: #### B MP #### [facility] [address] [place] [address] Dr. Diamante Lacey Urobilinogen Qn (U) 0.2 {Iraida'U}/dL Normal 0.2 - 1. 0 [facility] Comment on above: Performed By: #### B MP #### [facility] [address] [place] [address] Dr. Diamante Lacey WBC NONE SEEN Normal NONE SEEN [facility] Comment on above: Performed By: #### B MP #### [facility] [address] [place] [address] Dr. Diamante Lacey PROF CHEM 8 (BAS METB)on Anion gap [Moles/Vol] 14.5 mmol/L Normal [facility] Comment on above: Performed By: #### B MP #### [facility] [address] [place] [address] Dr. Diamante Lacey Calcium [Mass/Vol] 9.3 mg/dL Normal 8.5-10.1 [facility] Comment on above: Performed By: #### B MP #### [facility] [address] [place] [address] Dr. Diamante Lacey Chloride [Moles/Vol] 103 mmol/L Normal 98-107 [facility] Comment on above: Performed By: #### B MP #### [facility] [address] [place] [address] Dr. Diamante Lacey CO2 [Moles/Vol] 28.0 mmol/L Normal 21.0-32.0 [facility] Comment on above: Performed By: #### B MP #### [facility] [address] [address] [address] Diamante Lacey Creatinine [Mass/Vol] 1.67 mg/dL Critically high 0.70-1.30 [facility] Comment on above: Performed By: #### B MP #### [facility] [address] [address] [address] Diamante Lacey EGFR-AF KENYAN 50 mL/min/1.73m2 Critically low >=60 [facility] Comment on above: Performed By: #### B MP #### [facility] [address] [address] [address] Diamante Lacey EGFR-NON AF KENYAN 41 mL/min/1.73m2 Critically low >=60 [facility] Comment on above: Performed By: #### B MP #### [facility] [address] [address] [address] Diamante Lacey Glucose [Mass/Vol] 165 mg/dL Critically high 74-106 [facility] Comment on above: Performed By: #### B MP #### [facility] [address] [address] [address] Diamante Lacey Potassium [Moles/Vol] 4.5 mmol/L Normal 3.5-5.1 [facility] Comment on above: Performed By: #### B MP #### [facility] [address] [address] [address] Diamante Lacey Sodium [Moles/Vol] 141 mmol/L Normal 136-145 [facility] Comment on above: Performed By: #### B MP #### [facility] [address] [address] [address] Diamante Lacey Urea nitrogen [Mass/Vol] 39.0 mg/dL Critically high 7.0-18.0 [facility] Comment on above: Performed By: #### B MP #### [facility] [address] [address] [address] Diamante Lacey Urea nitrogen/Creatinine [Mass ratio] 23.4 mg/mg Normal [facility] Comment on above: Performed By: #### B MP #### [facility] [address] [place] [address] Dr. Diamante Lacey PROF CHEM 8 (BAS METB)on Anion gap [Moles/Vol] 13.7 mmol/L Normal [facility] Comment on above: Performed By: #### B MP #### [facility] [address] [place] [address] Dr. Diamante Lacey Calcium [Mass/Vol] 9.0 mg/dL Normal 8.5-10.1 [facility] Comment on above: Performed By: #### B MP #### [facility] [address] [place] [address] Dr. Diamante Lacey Chloride [Moles/Vol] 102 mmol/L Normal 98-107 [facility] Comment on above: Performed By: #### B MP #### [facility] [address] [place] [address] Dr. Diamante Lacey CO2 [Moles/Vol] 29.3 mmol/L Normal 21.0-32.0 [facility] Comment on above: Performed By: #### B MP #### [facility] [address] [place] [address] Dr. Diamante Lacey Creatinine [Mass/Vol] 1.66 mg/dL Critically high 0.70-1.30 [facility] Comment on above: Performed By: #### B MP #### [facility] [address] [place] [address] Dr. Diamante Lacey EGFR-AF KENYAN 50 mL/min/1.73m2 Critically low >=60 [facility] Comment on above: Performed By: #### B MP #### [facility] [address] [place] [address] Dr. Diamante Lacey EGFR-NON AF KENYAN 41 mL/min/1.73m2 Critically low >=60 [facility] Comment on above: Performed By: #### B MP #### [facility] [address] [place] [address] Dr. Diamante Lacey Glucose [Mass/Vol] 137 mg/dL Critically high 74-106 [facility] Comment on above: Performed By: #### B MP #### [facility] [address] [address] [address] Diamante Lacey Potassium [Moles/Vol] 4.0 mmol/L Normal 3.5-5.1 [facility] Comment on above: Performed By: #### B MP #### [facility] [address] [address] [address] Diamante Lacey Sodium [Moles/Vol] 141 mmol/L Normal 136-145 [facility] Comment on above: Performed By: #### B MP #### [facility] [address] [address] [address] Diamante Lacey Urea nitrogen [Mass/Vol] 38.0 mg/dL Critically high 7.0-18.0 [facility] Comment on above: Performed By: #### B MP #### [facility] [address] [address] [address] Diamante Lacey Urea nitrogen/Creatinine [Mass ratio] 22.9 mg/mg Normal [facility] Comment on above: Performed By: #### B MP #### [facility] [address] [address] [address] Diamante Lacey NM STRESS ONLY SINGLEon 08-0 NM STRESS ONLY SINGLE Patient: LISA JURADO Exam Date: 02/16/2022 : 1955 Gender:M Ordering : DR SPENCER MAST M.D. Admission #: [id number] Family : DR JUDI WILSON M.D. Order #: [id number] CLICK HERE TO VIEW EXAM RADIOLOGY REPORT [...] emergency room, the patient declined Dictated by: Kelvin Law MD on 03/24/2022 at 11:51 Approved by: Kelvin Law MD on 03/24/2022 at 11:[address] [facility] CBC AUTO DIFFon 01-27-2022 BASO # 0.1 103/ul Normal 0.0-0.1 [facility] Comment on above: Performed By: #### B MP #### [facility] [address] [place] [address] Dr. Diamante Lacey Basophils/100 WBC (Bld) 0.6 % Normal 0.2-2.0 [facility] Comment on above: Performed By: #### B MP #### [facility] [address] [place] [address] Dr. Diamante Lacey EO # 0.2 103/ul Normal 0.0-0.7 [facility] Comment on above: Performed By: #### B MP #### [facility] [address] [place] [address] Dr. Diamante Lacey Eosinophils/100 WBC (Bld) 2.6 % Normal 0.9-7.0 [facility] Comment on above: Performed By: #### B MP #### [facility] [address] [place] [address] Dr. Diamante Lacey Erythrocyte distribution width (RBC) [Ratio] 14.6 % Normal 11.0-15.0 [facility] Comment on above: Performed By: #### B MP #### [facility] [address] [place] [address] Dr. Diamante Lacey Hematocrit (Bld) [Volume fraction] 39.1 % Critically low 42.0-54.0 [facility] Comment on above: Performed By: #### B MP #### [facility] [address] [place] [address] Dr. Diamante Lacey Hemoglobin (Bld) [Mass/Vol] 12.8 g/dL Critically low 14.0-18.0 [facility] Comment on above: Performed By: #### B MP #### [facility] [address] [place] [address] Dr. Diamante Lacey IG # 0.02 10e3/ul Normal 0.00-0.03 [facility] Comment on above: Performed By: #### B MP #### [facility] [address] [place] [address] Dr. Diamante Lacey IG % 0.2 % Normal 0.0-0.5 [facility] Comment on above: Performed By: #### B MP #### [facility] [address] [place] [address] Dr. Diamante Lacey LYMPH # 1.7 103/ul Normal 1.2-3.[address] [facility] Comment on above: Performed By: #### B MP #### [facility] [address] [place] [address] Dr. Diamante Lacey Lymphocytes/100 WBC (Bld) 20.8 % Normal 20.5-60.0 [facility] Comment on above: Performed By: #### B MP #### [facility] [address] [place] [address] Dr. Diamante Lacey MANUAL DIFF REQ NO Normal [facility] Comment on above: Performed By: #### B MP #### [facility] [address] [place] [address] Dr. Diamante Lacey MCH (RBC) [Entitic mass] 30.0 pg Normal 25.9-34.[address] [facility] Comment on above: Performed By: #### B MP #### [facility] [address] [place] [address] Dr. Diamante Lacey MCHC (RBC) [Mass/Vol] 32.7 g/dL Normal 29.9-35.[address] [facility] Comment on above: Performed By: #### B MP #### [facility] [address] [place] [address] Dr. Diamante Lacey MCV (RBC) [Entitic vol] 91.6 fL Normal 80.0-94.0 [facility] Comment on above: Performed By: #### B MP #### [facility] [address] [place] [address] Dr. Diamante Lacey MONO # 0.8 103/ul Normal 0.3-0.8 [facility] Comment on above: Performed By: #### B MP #### [facility] [address] [place] [address] Dr. Diamante Lacey Monocytes/100 WBC (Bld) 9.4 % Normal 1.7-12.0 [facility] Comment on above: Performed By: #### B MP #### [facility] [address] [place] [address] Dr. Diamante Lacey NEUT # 5.5 103/ul Normal 1.4-6.5 [facility] Comment on above: Performed By: #### B MP #### [facility] [address] [place] [address] Dr. Diamante Lacey Neutrophils/100 WBC (Bld) 66.4 % Normal 43.0-75.0 [facility] Comment on above: Performed By: #### B MP #### [facility] [address] [place] [address] Dr. Diamante Lacey Platelet mean volume (Bld) [Entitic vol] 11.3 fL Normal 9.5-13.[address] [facility] Comment on above: Performed By: #### B MP #### [facility] [address] [place] [address] Dr. Diamante Lacey PLT 196 103/ul Normal 150-[address] [facility] Comment on above: Performed By: #### B MP #### [facility] [address] [place] [address] Dr. Diamante Lacey RBC 4.27 106/ul Critically low 4.70-6.10 [facility] Comment on above: Performed By: #### B MP #### [facility] [address] [place] [address] Dr. Diamante Lacey WBC 8.3 103/ul Normal 4.0-11.[address] [facility] Comment on above: Performed By: #### B MP #### [facility] [address] [place] [address] Dr. Diamante Lacey LIPASEon 01-27-2022 Lipase [Catalytic activity/Vol] 227.0 U/L Normal 73.0-393.0 [facility] Comment on above: Performed By: #### B MP #### [facility] [address] [place] [address] Dr. Diamante Lacey MAGNESIUMon 01-27-2022 Magnesium [Mass/Vol] 1.7 mg/dL Critically low 1.8-2.4 [facility] Comment on above: Performed By: #### M G #### [facility] [address] [place] [address] Dr. Diamante Lacey PROF 14(COMP METB)on 022 Albumin [Mass/Vol] 3.6 g/dL Normal 3.4-5.0 [facility] Comment on above: Performed By: #### B MP #### [facility] [address] [place] [address] Dr. Diamante Lacey Albumin/Globulin [Mass ratio] 1.4 {ratio} Normal [facility] Comment on above: Performed By: #### B MP #### [facility] [address] [place] [address] Dr. Diamante Lacey ALP [Catalytic activity/Vol] 88 U/L Normal 46-116 [facility] Comment on above: Performed By: #### B MP #### [facility] [address] [place] [address] Dr. Diamante Lacey ALT [Catalytic activity/Vol] 30 U/L Normal 16-63 [facility] Comment on above: Performed By: #### B MP #### [facility] [address] [place] [address] Dr. Diamante Lacey Anion gap [Moles/Vol] 15.7 mmol/L Normal [facility] Comment on above: Performed By: #### B MP #### [facility] [address] [place] [address] Dr. Diamante Lacey AST [Catalytic activity/Vol] 13 U/L Critically low 15-37 [facility] Comment on above: Performed By: #### B MP #### [facility] [address] [address] [address] Diamante Lacey Bilirubin [Mass/Vol] 0.5 mg/dL Normal 0.2-1.0 [facility] Comment on above: Performed By: #### B MP #### [facility] [address] [address] [address] Diamante Lacey Calcium [Mass/Vol] 8.5 mg/dL Normal 8.5-10.1 [facility] Comment on above: Performed By: #### B MP #### [facility] [address] [place] [address] Dr. Diamante Lacey Chloride [Moles/Vol] 106 mmol/L Normal 98-107 [facility] Comment on above: Performed By: #### B MP #### [facility] [address] [address] [address] Diamante Lacey CO2 [Moles/Vol] 24.4 mmol/L Normal 21.0-32.0 [facility] Comment on above: Performed By: #### B MP #### [facility] [address] [place] [address] Dr. Diamante Lacey Creatinine [Mass/Vol] 1.41 mg/dL Critically high 0.70-1.30 [facility] Comment on above: Performed By: #### B MP #### [facility] [address] [address] [address] Diamante Lacey EGFR-AF KENYAN >60 Normal >=60 [facility] Comment on above: Performed By: #### B MP #### [facility] [address] [address] [address] Diamante Lacey EGFR-NON AF KENYAN 50 mL/min/1.73m2 Critically low >=60 [facility] Comment on above: Performed By: #### B MP #### [facility] [address] [address] [address] Diamante Lacey Globulin (S) [Mass/Vol] 2.5 g/dL Normal [facility] Comment on above: Performed By: #### B MP #### [facility] [address] [address] [address] Diamante Lacey Glucose [Mass/Vol] 103 mg/dL Normal 74-106 [facility] Comment on above: Performed By: #### B MP #### [facility] [address] [address] [address] Diamante Lacey Potassium [Moles/Vol] 4.1 mmol/L Normal 3.5-5.1 [facility] Comment on above: Performed By: #### B MP #### [facility] [address] [address] [address] Diamante Lacey Protein [Mass/Vol] 6.1 g/dL Critically low 6.4-8.2 [facility] Comment on above: Performed By: #### B MP #### [facility] [address] [address] [address] Diamante Lacey Sodium [Moles/Vol] 142 mmol/L Normal 136-145 [facility] Comment on above: Performed By: #### B MP #### [facility] [address] [address] [address] Diamante Lacey Urea nitrogen [Mass/Vol] 23.0 mg/dL Critically high 7.0-18.0 [facility] Comment on above: Performed By: #### B MP #### [facility] [address] [address] [address] Diamante Lacey Urea nitrogen/Creatinine [Mass ratio] 16.3 mg/mg Normal [facility] Comment on above: Performed By: #### B MP #### [facility] [address] [address] [address] Diamante Lacey TROPONIN, HIGH SENSITIVITYon 01-27-2022 HSTROP 15.5 pg/mL Normal 4.0-76.1 [facility] Comment on above: Result Comment: CUT- OFF POINTS HAVE BEEN ESTABLISHED BASED ON THE FOURTH UNIVERSAL DEFINITIONS OF MYOCARDIAL INFARCTION. THE UPPER REFERENCE LIMIT (URL) OF TROPONIN, DEFINED THE 99TH PERCENTILE OF cTnI DISTRIBUTION IN A REFERENCE POPULATION, HAS BEEN CONFIRMED THE DECISION THRESHOLD FOR ID DIAGNOSIS. Performed By: #### B MP #### [facility] [address] [place], [place] [address] Dr. Diamante Lacey HSTROP 13.8 pg/mL Normal 4.0-76.[address] [facility] Comment on above: Result Comment: CUT- OFF POINTS HAVE BEEN ESTABLISHED BASED ON THE FOURTH UNIVERSAL DEFINITIONS OF MYOCARDIAL INFARCTION. THE UPPER REFERENCE LIMIT (URL) OF TROPONIN, DEFINED THE 99TH PERCENTILE OF cTnI DISTRIBUTION IN A REFERENCE POPULATION, HAS BEEN CONFIRMED THE DECISION THRESHOLD FOR ID DIAGNOSIS. Performed By: #### B MP #### [facility] [address] [place], [place] [address] Dr. Diamante Lacey XR CHEST 1 Von [...] ALBERTO RAE Date: 2022-01-27 19:[address] [facility] Office Visit (Cardiology)on 06-18-2021 Follow-up visit Patient Instructions Please bring all medicines, vitamins, and herbal supplements with you when you come to the office. Prescriptions will not be filled unless you are compliant with your follow up appointments or have a follow up appointment scheduled as per instruction of your physician. Refills should be requested at the time of your visit. Chief Complaint LISA JURADO is being seen for hypertension. History [...] negative for complaint. Vitals Vital Signs Recorded: [id number] 01:30PMRecorded: [id number] 01:28PM Shaqowss662, RUE, Glyrjhn564, LUE, Sitting Rjejvxtbj70, RUE, Znspscq03, LUE, Sitting Heart Rate78, L Radial Height5 ft 10 in Lvcisp532 lb BMI Ouziqwebyy51.72 kg/m2 BSA Calculated2.26 Physical Exam Constitutional: alert [...] No Panel Informationon 06-11 8.8\S\8.8 Normal 8.2-10.2 [facility] DO Work Phone: Comment on above: PERFORMED BY:[address], [place] [id number] MEDICAL DIRECTORHENOK YANEZ M.D. 27.0\S\27.0 Normal 22.0-30.0 [facility] DO Work Phone: 103\S\103 Normal 95-114 [facility] DO Work Phone: 4.4\S\4.4 Normal 3.5-5.1 [facility] DO Work Phone: 138\S\138 Normal 136-146 [facility] DO Work Phone: 53\S\[address] [facility] DO Work Phone: Comment on above: GFR estimated refere nce range: According to KDOQI guidelines, <60 ml/min/1.73m2 is sufficient to diagnose a patient with chronic kidney disease. 44\S\[address] [facility] [address] DO Work Phone: 1.59\S\1.59 above high threshold 0.64-1.27 [facility] DO Work Phone: 25\S\25 above high threshold 9-23 [facility] DO Work Phone: 143\S\143 above high threshold 70-100 [facility] [address] DO Work Phone: Comment on above: Random [...] Instructions By signing my name below, I, Mara Jolly LPN,Scribe, attest that this documentation has been prepared [...] Follow up in 3 months Chief Complaint LISA JURADO is being seen for New Patient. [...] Vital Signs Recorded: 28May2021 02:21PMRecorded: 28May2021 02:13PM [id number], LUE, Dfmmids305, RUE, Sitting Apvizbzya49, LUE, Uucajna370, RUE, Sitting Heart Rate71, Apical Height5 ft 10 in Htzcqv292 lb BMI Ewoklanbvw24.87 kg/m2 BSA Calculated2.27 Tobacco Useb) No Fall [...] S1 and (more content not included)... Normal [employer] Tobacco Screening.on Fall risk assessment a) No falls within the last year [facility] DO Work Phone: Tobacco use status [facility] b) No [facility] DO Work Phone: Vital Signs Date Time Vital Sign Value Performing Clinician Facility 08-14-2024 13:47-0500 Body height 175.26 cm Spencer Mast MD Work Phone: [facility] [place] 08-14-2024 13:47-0500 Body mass index (BMI) [Ratio] 35.4 kg/m2 Spencer Mast MD Work Phone: [facility] [place] 08-14-2024 13:47-0500 Body weight 108.86 kg Spencer Mast MD Work Phone: [facility] [place] 08-01-2024 15:20-0500 Body height 175.3 cm Zoila Fountain [employer]LLAR [employer]ER Work Phone: [facility] 08-01-2024 15:20-0500 Body mass index (BMI) [Ratio] 36.27 kg/m2 Zoila [place] COLLAR TACKER Work Phone: [facility] 08-01-2024 15:20-0500 Body weight 111.4 kg Zoila Panda [employer]LLAR T[employer]ER Work Phone: [facility] 08-01-2024 15:20-0500 Diastolic blood pressure 86 mm[Hg] Zoila [place] [employer]LLAR T[employer]ER Work Phone: [facility] 08-01-2024 15:20-0500 Heart rate 105 /min Zoila Panda [employer]LLAR T[employer]ER Work Phone: [facility] 08-01-2024 15:20-0500 Respiratory rate 17 /min Zoila Panda [employer]LLAR T[employer]ER Work Phone: [facility] 08-01-2024 15:20-0500 SaO2% (BldA) [Mass fraction] 96 % Zoila Panda [employer]LLAR T[employer]ER Work Phone: [facility] 08-01-2024 15:20-0500 Systolic blood pressure 182 mm[Hg] Zoila Panda [employer]LLAR TACKER Work Phone: [facility] 06-20-2024 16:21-0500 Body height 175.3 cm Zoila Panda [employer]LLAR T[employer]ER Work Phone: [facility] 06-20-2024 16:21-0500 Body mass index (BMI) [Ratio] 38.22 kg/m2 Zoila Panda [employer]LLAR T[employer]ER Work Phone: [facility] 06-20-2024 16:21-0500 Body weight 117.39 kg Zoila Panda [employer]LLAR T[employer]ER Work Phone: [facility] 06-20-2024 16:21-0500 Diastolic blood pressure 76 mm[Hg] Zoila Panda [employer]LLAR TACKER Work Phone: [facility] 06-20-2024 16:21-0500 Heart rate 67 /min Zoilaindio Fountain [employer]LLAR T[employer]ER Work Phone: [facility] 06-20-2024 16:21-0500 Respiratory rate 17 /min Zoila Panda [employer]LLAR T[employer]ER Work Phone: [facility] 06-20-2024 16:21-0500 SaO2% (BldA) [Mass fraction] 98 % Zoila Panda [employer]LLAR T[employer]ER Work Phone: [facility] 06-20-2024 16:21-0500 Systolic blood pressure 138 mm[Hg] Zoila Panda [employer]LLAR TACKER Work Phone: [facility] 05-02-2024 15:27-0400 Body height 175.3 cm Zoila Panda [employer]LLAR T[employer]ER Work Phone: [facility] 05-02-2024 15:27-0400 Body mass index (BMI) [Ratio] 36.48 kg/m2 Zoilaindio Fountain [employer]LLAR T[employer]ER Work Phone: [facility] 05-02-2024 15:27-0400 Body weight 112.04 kg Zoila Panda [employer]LLAR T[employer]ER Work Phone: [facility] 05-02-2024 15:27-0400 Diastolic blood pressure 92 mm[Hg] Zoila Panda COLLAR TACKER Work Phone: [facility] 05-02-2024 15:27-0400 Heart rate 72 /min Zoila Panda [employer]LLAR T[employer]ER Work Phone: [facility] 05-02-2024 15:27-0400 SaO2% (BldA) [Mass fraction] 95 % Zoila Panda [employer]LLAR T[employer]ER Work Phone: [facility] 05-02-2024 15:27-0400 Systolic blood pressure 140 mm[Hg] Zoila Panda [employer]LLAR T[employer]ER Work Phone: [facility] 10-30-2023 13:10-0400 Diastolic blood pressure 86 mm[Hg] MD Spencer Mast Work Phone: [facility] [place] 10-30-2023 13:10-0400 Heart rate 62 /min MD Spencer Mast Work Phone: [facility] [place] 10-30-2023 13:10-0400 Respiratory rate 16 /min MD Spencer Mast Work Phone: [facility] [place] 10-30-2023 13:10-0400 SaO2% (BldA) [Mass fraction] 98 % MD Spencer Mast Work Phone: [facility] [place] 10-30-2023 13:10-0400 Systolic blood pressure 140 mm[Hg] MD Spencer Mast Work Phone: [facility] [place] 10-30-2023 12:40-0400 Inhaled oxygen flow rate 6 L/min MD Spencer Mast Work Phone: [facility] [place] 10-30-2023 12:25-0400 Body height 175.26 cm MD Spencer Mast Work Phone: [facility] [place] 10-30-2023 12:25-0400 Body mass index (BMI) [Ratio] 34.9 kg/m2 MD Spencer Mast Work Phone: [facility] [place] 10-30-2023 12:25-0400 Body weight 107.5 kg MD Spencer Mast Work Phone: [facility] [place] 10-30-2023 10:15-0400 Body temperature 97.7 [degF] MD Spencer Mast Work Phone: [facility] [place] 08-31-2023 15:03-0500 Body height 175.26 cm MD Spencer Mast Work Phone: [facility] [place] 08-31-2023 15:03-0500 Body mass index (BMI) [Ratio] 34.9 kg/m2 MD Spencer Mast Work Phone: [facility] [place] 08-31-2023 15:03-0500 Body weight 107.5 kg MD Spencer Mast Work Phone: [facility] [place] 08-29-2023 11:25-0500 Body mass index (BMI) [Ratio] 35.12 kg/m2 Zoila Fountain NP Work Phone: [facility] 08-29-2023 11:25-0500 Body weight 107.86 kg Zoila Fountain [employer]LLAR T[employer]ER Work Phone: [facility] 08-29-2023 11:25-0500 Diastolic blood pressure 83 mm[Hg] Zoila Fountain [employer]LLAR T[employer]ER Work Phone: [facility] 08-29-2023 11:25-0500 Heart rate 70 /min Zoila Panda [employer]LLAR T[employer]ER Work Phone: [facility] 08-29-2023 11:25-0500 Respiratory rate 14 /min Zoila Fountain [employer]LLAR T[employer]ER Work Phone: [facility] 08-29-2023 11:25-0500 SaO2% (BldA) [Mass fraction] 95 % Zoila Fountain [employer]LLAR T[employer]ER Work Phone: [facility] 08-29-2023 11:25-0500 Systolic blood pressure 140 mm[Hg] Zoila Panda COLLAR TACKER Work Phone: [facility] 08-02-2023 09:05-0500 Body height 175.26 cm Leidy Jamison Other [facility] [place] 08-02-2023 09:05-0500 Body mass index (BMI) [Ratio] 35.47 kg/m2 Leidy Jamison Other [facility] Other 08-02-2023 09:05-0500 Body temperature 97.1 [degF] Leidy Jamison Other [facility] Other 08-02-2023 09:05-0500 Body weight 108.95 kg Leidy Jamison Other [facility] [place] 08-02-2023 09:05-0500 Diastolic blood pressure 74 mm[Hg] Leidy Jamison Other [facility] [place] 08-02-2023 09:05-0500 Respiratory rate 18 /min Leidy Jamison Other [facility] Other 08-02-2023 09:05-0500 SaO2% (BldA) [Mass fraction] 89 % Leidy Jamison Other [facility] Other 08-02-2023 09:05-0500 Systolic blood pressure 122 mm[Hg] Leidy Jamison Other [facility] [place] 06-18-2021 13:30-0500 Diastolic blood pressure 80 mm[Hg] Rugen Deysi Pro [facility] Work Phone: 06-18-2021 13:30-0500 Systolic blood pressure 122 mm[Hg] Rugen M Pro Work Phone: [facility] Work Phone: 06-18-2021 13:28-0500 Body height 177.8 cm Rugen Deysi Elliott Work Phone: [facility] DO Work Phone: 06-18-2021 13:28-0500 Body mass index (BMI) [Ratio] 34.72 kg/m2 Rugen M Elliott Work Phone: [facility] DO Work Phone: 06-18-2021 13:28-0500 Body surface area Derived from formula 2.26 m2 Rugen Deysi Pro Work Phone: [facility] DO Work Phone: 06-18-2021 13:28-0500 Body weight 109.77 kg Rugen M Elliott Work Phone: [facility] DO Work Phone: 06-18-2021 13:28-0500 Diastolic blood pressure 72 mm[Hg] Rugen M Pro Work Phone: [facility] DO Work Phone: 06-18-2021 13:28-0500 Heart rate 78 /min Rugen M Pro Work Phone: [facility] DO Work Phone: 06-18-2021 13:28-0500 Systolic blood pressure 124 mm[Hg] Rugen M Pro Work Phone: [facility] DO Work Phone: 05-28-2021 14:21-0500 Diastolic blood pressure 98 mm[Hg] Rugen M Pro Work Phone: [facility] DO Work Phone: 05-28-2021 14:21-0500 Systolic blood pressure 160 mm[Hg] Rugen M Pro Work Phone: [facility] DO Work Phone: 05-28-2021 14:13-0500 Body height 177.8 cm Rugen M Elliott Work Phone: [facility] DO Work Phone: 05-28-2021 14:13-0500 Body mass index (BMI) [Ratio] 34.87 kg/m2 Rugen M Elliott Work Phone: [facility] DO Work Phone: 05-28-2021 14:13-0500 Body surface area Derived from formula 2.27 m2 Rugen M Pro Work Phone: [facility] DO Work Phone: 05-28-2021 14:13-0500 Body weight 110.22 kg Rugen M Elliott Work Phone: [facility] DO Work Phone: 05-28-2021 14:13-0500 Diastolic blood pressure 108 mm[Hg] Rugen M Pro Work Phone: [facility] DO Work Phone: 05-28-2021 14:13-0500 Heart rate 71 /min Spencer Mast Work Phone: [facility] DO Work Phone: 05-28-2021 14:13-0500 Systolic blood pressure 162 mm[Hg] Spencer Mast Work Phone: [facility] DO Work Phone: Encounters Encounter Date Encounter Type Care Provider Facility Start: 09-12-2024 End: 09-12-2024 ambulatory Spencer Mast MD Work Phone: [facility] Work Phone: Start: 09-12-2024 End: 09-12-2024 Patient encounter procedure Spencer Mast MD Work Phone[facility] Work Phone: Start: 09-05-2024 End: 09-16-2024 Telephone encounter Oziel Sage PT Work Phone: [facility] Comment on above: PT BWC out to 09/17/24 (For 1 PT that would = 12.); FU (No answer / voicemail full.); FU x2 (Voicemail full); Final (Tried to contact to offer to schedule his last C-9 PT; same as previous 3 attempts not available.); C-9 ending date 09/17/24 (4 attempts; unable to contact.) Start: 08-26-2024 End: 08-26-2024 ambulatory Oziel Sage PT Work Phone: [facility] Comment on above: Strain of right shou lder, initial encounter (Primary Dx) Start: 08-26-2024 End: 08-26-2024 Bamboo flowsheet Oziel Sage PT Work Phone: [facility] Start: 08-26-2024 End: 08-26-2024 Bamboo flowsheet Oziel Nesston PT Work Phone: [facility] Start: 08-19-2024 End: 08-20-2024 ambulatory Oziel Sage PT Work Phone: [facility] Comment on above: Strain of right shou lder, initial encounter (Primary Dx) Start: 08-19-2024 End: 08-19-2024 Bamboo flowsheet Oziel Favio Blackston PT Work Phone: [facility] Start: 08-19-2024 End: 08-19-2024 Bamboo flowsheet Oziel Favio Blackston PT Work Phone: [facility] Start: 08-15-2024 End: 08-16-2024 ambulatory Oziel Sage PT Work Phone: [facility] Comment on above: Strain of right shou lder, initial encounter (Primary Dx) Start: 08-15-2024 End: 08-15-2024 Bamboo flowsheet Oziel Sage PT Work Phone: [facility] Start: 08-15-2024 End: 08-15-2024 Bamboo flowsheet Oziel Nesston PT Work Phone: [facility] Start: 08-14-2024 End: 08-14-2024 ambulatory Spencer Mast MD Work Phone: [facility] Work Phone: Start: 08-14-2024 End: 08-14-2024 Patient encounter procedure Spencer Mast MD Work Phone: [facility] Work Phone: Start: 08-12-2024 End: 08-13-2024 ambulatory Jethro Ware [employer] [facility] Comment on above: Strain of right shou lder, initial encounter (Primary Dx) Start: 08-12-2024 End: 08-12-2024 Bamboo flowsheet Jethro Ware [employer] [facility] Start: 08-12-2024 End: 08-12-2024 Bamboo flowsheet Jethro Ware [employer] [facility] Start: 08-08-2024 End: 08-08-2024 ambulatory OZIEL SAGE Not Available Start: 08-08-2024 End: 08-08-2024 Bamboo flowsheet Oziel Sage PT Work Phone: [facility] Start: 08-08-2024 End: 08-08-2024 Bamboo flowsheet Oziel Sage PT Work Phone: [facility] Start: 08-08-2024 End: 08-08-2024 ambulatory Spencer Mast MD Work Phone: [facility] Work Phone: Comment on above: Strain of right shou lder, initial encounter (Primary Dx) Start: 08-08-2024 End: 08-08-2024 Patient encounter procedure Spencer Mast MD Work Phone: [facility] Work Phone: Start: 08-06-2024 End: 08-07-2024 ambulatory Oziel Sage PT Work Phone: [facility] Comment on above: Strain of right shou lder, initial encounter (Primary Dx) Start: 08-06-2024 End: 08-06-2024 Bamboo flowsheet Oziel Sage PT Work Phone: [facility] Start: 08-06-2024 End: 08-06-2024 Bamboo flowsheet Oziel Sage PT Work Phone: [facility] Start: 08-01-2024 End: 08-01-2024 Office outpatient visit 25 minutes Zoila Fountain [employer]LL[employer]ER Work Phone: [facility] Comment on above: Laryngitis (Primary Dx); Type 2 diabetes mellitus with hyperglycemia (CMS/HCC); Type 2 diabetes mellitus with diabetic chronic kidney disease (CMS/HCC); Chronic kidney disease, stage 3a (HCC) (CMS/HCC); Morbid (severe) obesity due to excess calories (CMS/HCC); Essential (primary) hypertension ([facility]/HCC); Body mass index (BMI) 38.0-38.9, adult; Pulmonary hypertension, unspecified ([facility]/HCC) Start: 08-01-2024 End: 08-01-2024 ambulatory ZOILA FOUNTAIN Not Available Start: 08-01-2024 End: 08-01-2024 Bamboo flowsheet Zoila Fountain [employer]LLAR TACKER Work Phone: [facility] Start: 08-01-2024 End: 08-01-2024 Bamboo flowsheet Zoila Fountain [employer]LLAR T[employer]ER Work Phone: [facility] Start: 07-26-2024 End: 07-26-2024 ambulatory Spencer Mast MD Work Phone: [facility] Work Phone: Start: 07-26-2024 End: 07-26-2024 Patient encounter procedure Spencer Mast MD Work Phone: [facility] [address] Work Phone: Start: 07-25-2024 End: 07-25-2024 ambulatory Darryl Moncada [employer] [facility] Comment on above: Strain of right shou lder, initial encounter (Primary Dx) Start: 07-23-2024 End: 07-23-2024 ambulatory Darryl Moncada [employer] [facility] Comment on above: Strain of right shou lder, initial encounter (Primary Dx) Start: 07-23-2024 End: 07-23-2024 Bamboo flowsheet Darryl Moncada [employer] [facility] Start: 07-23-2024 End: 07-23-2024 Bamboo flowsheet Darryl Moncada [employer] [facility] Start: 07-22-2024 End: 07-22-2024 Patient encounter procedure Spencer Mast MD Work Phone: [facility] [address] [facility] Work Phone: Start: 07-22-2024 End: 07-22-2024 ambulatory Spencer Mast MD Work Phone: [facility] Work Phone: Start: 07-18-2024 End: 07-18-2024 Bamboo flowsheet Leidy Jacome PT Work Phone: [facility] Start: 07-18-2024 End: 07-18-2024 Bamboo flowsheet Leidy Jacome PT Work Phone: [facility] Start: 07-18-2024 End: 07-18-2024 ambulatory Leidy Jacome PT Work Phone: [facility] Comment on above: Strain of right shou lder, initial encounter (Primary Dx) Start: 07-11-2024 End: 07-11-2024 Bamboo flowsheet Jethro Brink [employer] [facility] Start: 07-11-2024 End: 07-11-2024 Bamboo flowsheet Jethro Brink [employer] [facility] Start: 07-11-2024 End: 07-11-2024 ambulatory Jethro Ladyink [employer] [facility] Comment on above: Strain of right shou lder, initial encounter (Primary Dx) Start: 07-09-2024 End: 07-09-2024 Bamboo flowsheet Oziel Sage PT Work Phone: [facility] Start: 07-09-2024 End: 07-09-2024 Bamboo flowsheet Oziel Sage PT Work Phone: [facility] Start: 07-09-2024 End: 07-09-2024 ambulatory Oziel Sage PT Work Phone: [facility] Comment on above: Strain of right shou lder, initial encounter (Primary Dx) Start: 07-05-2024 End: 07-08-2024 Telephone encounter Oziel Sage PT Work Phone: [facility] Comment on above: PT thru C-9 Start: 07-04-2024 End: 07-04-2024 ambulatory Spencer Mast Facility:[facility] [place] Start: 07-04-2024 End: 07-04-2024 Patient encounter procedure Spencer Mast MD Work Phone: [facility] [address] Work Phone: Start: 06-25-2024 End: 06-25-2024 Patient encounter procedure Spencer Mast MD Work Phone: [facility] [address] Work Phone: Start: 06-25-2024 End: 06-25-2024 ambulatory Spencer Mast Facility:[facility] [place] Start: 06-20-2024 End: 06-20-2024 Office outpatient visit 25 minutes Zoila Fountain [employer]LL[employer]ER Work Phone: [facility] Comment on above: Laryngitis (Primary Dx) Start: 06-20-2024 End: 06-20-2024 ambulatory ZOILA FOUNTAIN Not Available Start: 06-20-2024 End: 06-20-2024 Bamboo flowsheet Zoila Fountain [employer]LLAR TACKER Work Phone: [facility] Start: 06-20-2024 End: 06-20-2024 Bamboo flowsheet Zoila Fountain [employer]LLAR T[employer]ER Work Phone: [facility] Start: 05-02-2024 End: 05-02-2024 Office outpatient visit 25 minutes Zoila Fountain [employer]LLAR T[employer]ER Work Phone: [facility] Comment on above: Laryngitis, acute (P rimary Dx); Acute pain of right knee Start: 05-02-2024 End: 05-02-2024 ambulatory ZOILA FOUNTAIN Not Available Start: 03-13-2024 End: 03-13-[address] [facility] Work Phone: Start: 03-13-2024 End: 03-13-2024 Patient encounter procedure [facility] Work Phone: Start: 03-06-2024 End: 03-06-[address] [facility] Work Phone: Start: 03-06-2024 End: 03-06-2024 Patient encounter procedure [facility] Work Phone: Start: 02-26-2024 End: 02-26-2024 ambulatory [facility] Start: 02-13-2024 End: 02-13-2024 ambulatory ZOILA M PANDA Not Available Start: 02-01-2024 End: 02-01-2024 ambulatory [facility] Start: 01-25-2024 End: 01-25-2024 ambulatory ZOILA M PANDA Not Available Start: 01-16-2024 End: 01-16-2024 ambulatory ZOILA M PANDA Not Available Start: 01-09-2024 End: 01-09-2024 ambulatory ZOILA M PANDA Not Available Start: 12-13-2023 End: 12-13-2023 ambulatory ZOILA M PANDA Not Available Start: 12-06-2023 End: 12-06-2023 ambulatory ZOILA M PANDA Not Available Start: 11-29-2023 End: 11-29-2023 ambulatory ZOILA M PANDA Not Available Start: 11-15-2023 End: 11-15-2023 ambulatory ZOILA M PANDA Not Available Start: 11-09-2023 End: 11-09-2023 ambulatory SPENCER MAST Not Available Start: 11-07-2023 End: 11-07-2023 ambulatory LISA OCAMPO V Not Available Start: 10-30-2023 End: 10-30-2023 Admission to same day surgery center MD Spencer Mast Work Phone: [facility] [place] Start: 10-30-2023 End: 10-30-2023 ambulatory MD Spencer Mast Work Phone: [facility] Work Phone: Start: 10-10-2023 End: 10-10-2023 ambulatory LISA OCAMPO V Not Available Start: 08-31-2023 End: 08-31-2023 ambulatory MD Spencer Mast Work Phone: [facility] Work Phone: Start: 08-31-2023 End: 08-31-2023 Patient encounter procedure MD Spencer Mast Work Phone: [facility] Work Phone: Start: 08-31-2023 End: 08-31-2023 Patient encounter procedure MD Spencer Mast Work Phone: [facility] Start: 08-31-2023 End: 08-31-2023 ambulatory MD Spencer Mast Work Phone: [facility] Work Phone: Start: 08-29-2023 Chart abstracting Zoila pan COLLAR TACKER Work Phone: [facility] Start: 08-29-2023 End: 08-29-2023 Office outpatient visit 25 minutes Zoila Fountain COLLAR TACKER Work Phone: [facility] Comment on above: Bronchitis (Primary Dx); Left non-suppurative otitis media Start: 08-29-2023 End: 08-29-2023 ambulatory ZOILA FOUNTAIN Not Available Start: 08-02-2023 (URG) Urgent Care Visit Leidy apniagua [facility] [place] Start: 08-02-2023 End: 08-02-2023 ambulatory Leidy Jamison Other [facility] Other Start: 08-02-2023 Telephone encounter Leidy Jamison [facility] [place] Start: 08-02-2023 End: 08-02-2023 Patient encounter procedure MD Spencer Mast Work Phone: [facility]- Start: 05-10-2023 End: 05-10-2023 ambulatory [facility] Start: 04-19-2023 End: 04-19-2023 ambulatory [facility] Start: 09-08-2022 End: 09-09-[address] SPENCER MAST Facility:[facility] Start: 06-06-2022 End: 06-07-[address] SPENCER MAST Facility:[facility] Start: 03-18-2022 End: 03-19-[address] JUDI WILSON Facility:[facility] Start: 03-14-2022 End: 03-15-[address] JUDI WILSON Facility:[facility] Start: 02-16-2022 End: 02-17-[address] SPENCER MAST Facility:[facility] Start: 01-27-2022 End: 01-27-2022 ambulatory FIORELLA BRONSON Facility:[facility] Start: 06-18-2021 Office outpatient vi sit 15 minutes Rugen M Elliott Work Phone: [facility] DO Work Phone: Start: 06-16-2021 NURSEVST, Provider: KAREN MORRIS COMPUTING SERVICES DIRECTOR 1,[id number], Status: Pen, Time: 1:00 PM Rugen M Pro Work Phone: [facility] DO Work Phone: Start: 06-14-2021 Chart Update Rugen M Pro Work Phone: [facility] DO Work Phone: Start: 05-28-2021 Office consultation new/estab patient 60 min Rugen M Pro Work Phone: [facility] 250 DO Work Phone: Start: 05-28-2021 Patient encounter procedure Rugen M Pro Work Phone: [facility] DO Work Phone: Start: 08-30-2016 End: 08-31-2016 Ambulatory DEFAULT PHYSICIAN Facility:[facility] Procedures Date Procedure Procedure Detail Performing Clinician Start: 07-22-2024 MRI of right shoulder William Mast MD Work Phone: Start: 06-25-2024 Plain X-ray of right shoulder Spencer Mast MD Work Phone: Start: 11-03-2023 Colonoscopy Zoila pan NP Work Phone: Start: 10-30-2023 Colonoscopy MD Spencer Cuevas lda Work Phone: Start: 08-31-2023 Pelvis X-ray MD Spencer Cuevas lda Work Phone: Start: 08-31-2023 X-ray of both knees MD Spencer Mast Work Phone: Appendectomy Spencer Mast Work Phone: Coronary artery bypa ss graft Spencer Mast Work Phone: Hernia repair Spencer Mast Work Phone: History of coronary artery bypass grafting S/P CABG (coronary artery bypass graft) Spencer Mast Work Phone: Lithotripsy Spencer Mast Work Phone: Operative procedure on knee Spencer Mast Work Phone: NEGATED: Highlighted row has not occurred! Total colonoscopy Spencer Mast Work Phone: Plan of Treatment Date Care Activity Detail Author Start: 11-02-2033 Screening for malign ant neoplasm of colon [facility] Start: 08-20-2026 Screening for malign ant neoplasm of colon FIT-DNA [facility] Start: 06-16-2025 Influenza vaccination Influenza Vacc ine (#1) [facility] Comment on above: Postponed from 03/17 (Other Medical Reasons) Start: 01-10-2025 Urine screening for protein Diabetes: Urine Protein Screening [facility] Start: 11-08-2024 Urine screening for protein Diabetes: Urine Protein Screening [facility] Start: 08-28-2024 End: 08-28-2024 ambulatory 08/28/2024 5:00 PM EST Treatment [facility] [address] [place] [id number] Jethro Ware PTA [facility] Start: 08-26-2024 End: 08-26-2024 ambulatory 08/26/2024 4:30 PM EST Treatment [facility] [address] [place] [address] Oziel Sage, PT [address] [place] [address] Arrived [facility] Comment on above: Arrived Start: 08-21-2024 End: 08-21-2024 ambulatory 08/21/2024 4:00 PM EST Treatment [facility] [address] [place] [address] Oziel Sage, PT [address] [place] [address] [facility] Start: 08-19-2024 End: 08-19-2024 ambulatory [facility] Comment on above: Arrived Start: 08-15-2024 End: 08-15-2024 ambulatory [facility] Comment on above: Arrived Start: 08-12-2024 End: 08-12-2024 ambulatory [facility] Comment on above: Arrived Start: 08-08-2024 End: 08-08-2024 ambulatory [facility] Comment on above: Arrived Start: 08-06-2024 End: 08-06-2024 ambulatory [facility] Comment on above: Arrived Start: 08-01-2024 End: 08-01-2024 Patient encounter procedure 08/01/2024 3:30 PM EST Office Visit [facility] [address] [place] [address] Zoila Fountain, COLLAR TACKER [address] [place] [address] Arrived [facility] Comment on above: Arrived Start: 07-25-2024 End: 07-25-2024 ambulatory 07/25/2024 2:30 PM EST Treatment [facility] [address] [place] [address] Darryl Moncada, LIVESTOCK COUNTER [facility] Start: 07-23-2024 End: 07-23-2024 ambulatory [facility] Comment on above: Arrived Start: 07-18-2024 Glaucoma screening Diabetes: R etinopathy Screening [facility] Start: 07-18-2024 End: 07-18-2024 ambulatory [facility] Comment on above: Strain of right shou lder, initial encounter (Primary Dx) Start: 07-15-2024 End: 07-15-2024 ambulatory 07/15/2024 8:30 AM EST Treatment [facility] [address] [place] [address] Petty Jimenez, JACINDA [facility] Start: 07-11-2024 End: 07-11-2024 ambulatory [facility] Comment on above: Strain of right shou lder, initial encounter (Primary Dx) Start: 07-09-2024 End: 07-09-2024 ambulatory 07/09/2024 8:30 AM EST Evaluation [facility] [address] [place] [address] Oziel Sage T, PT [address] [place] [address] [facility] Start: 06-20-2024 End: 06-20-2024 Patient encounter procedure 06/20/2024 4:30 PM EST Office Visit [facility] [address] [place] [address] Zoila Fountain, COLLAR TACKER [address] [place] [address] Arrived [facility] Comment on above: Arrived Start: 05-21-2024 Pneumococcal Vaccine : 65+ Years (1 - PCV) Pneumococcal Vaccine: 65+ Years (1 - PCV) [facility] Comment on above: Postponed from 04/24 (Other Patient Reasons) Start: 05-21-2024 Pneumococcal Vaccine : 65+ Years (1 of 2 - PCV) Pneumococcal Vaccine: 65+ Years (1 of 2 - PCV) [facility] Comment on above: Postponed from 04/24 (Other Patient Reasons) Start: 05-15-2024 Hemoglobin A1c measurement Diabetes: Hemoglobin A1C [facility] Start: 05-14-2024 End: 05-14-2024 Patient encounter procedure 05/14/2024 11:30 AM EDT Office Visit [facility] [address] [place] [address] Zoila Fountain NP [address] [place] [address] [facility] Start: 03-06-2024 Patient referral [facility] Work Phone: Start: 01-14-2024 Influenza vaccination Influenza Vacc ine (#1) [facility] Comment on above: Postponed from 03/17 (Other Patient Reasons) Start: 10-30-2023 [facility] Start: 10-04-2023 Hemoglobin A1c measurement Diabetes: Hemoglobin A1C [facility] Start: 09-04-2023 End: 09-04-2023 Patient encounter procedure 09/04/2023 2:30 PM EST Office Visit [facility] [address] [place] [address] Spencer Mast MD [address] [place] [address] [facility] Start: 08-29-2023 End: 08-29-2023 Patient encounter procedure 08/29/2023 11:30 AM EST Office Visit [facility] [address] [place] [address] Zoila Fountain NP [address] [place] [address] [facility] Start: 01-21-2022 Screening for malign ant neoplasm of colon [facility] Start: 12-29-2021 FUV, Provider: Juanito Peterson, Status: Pen, Time: 1:40 PM FUV, Provider: Juanito Peterson, Status: Pen, Time: 1:40 PM [facility] 250 DO Work Phone: Start: 08-25-2021 FUV, Provider: Juanito Peterson, Status: Pen, Time: 1:30 PM FUV, Provider: Juanito Peterson, Status: Pen, Time: 1:30 PM [facility] DO Work Phone: Start: 06-16-2021 NURSEVST, Provider: KAREN MORRIS COMPUTING SERVICES DIRECTOR 1,[id number], Status: Pen, Time: 1:00 PM NURSEVST, Provider: KAREN MORRIS COMPUTING SERVICES DIRECTOR 1,[id number], Status: Pen, Time: 1:00 PM [facility] DO Work Phone: Start: 1961 Pneumococcal Vaccine : 65+ Years (1 of 2 - PCV) Pneumococcal Vaccine: 65+ Years (1 of 2 - PCV) [facility] Start: 1955 Screening for malign ant neoplasm of colon [facility] Patient Education Colonoscopy (D C) Colon Polypectomy (DC) [facility] Work Phone: Patient referral [facility] Work Phone: Immunizations Immunization Date Immunization Notes Care Provider Ousmane uribe 11-11-2020 Pfizer-BioNTech COVI D-19 Vacc 30 MCG/0.3ML Intramuscular Suspension Rugtelly Jo Elliott Work Phone: [facility] DO Work Phone: 10-21-2020 Pfizer-BioNTech COVI D-19 Vacc 30 MCG/0.3ML Intramuscular Suspension Rugen M Elliott Work Phone: [facility] 250 DO Work Phone: Payers Date Payer Category Payer Worker's Compensation 1.2.84 [id number] 2024 Unknown [id number] 2024 Worker's Compensation [id number] 2023 Self-pay [id number] 2017 Blue Cross Blue Shield 1.2.8 [id number] 15 2017 Unknown 2017 Unknown [id number] 1959 Unknown [id number] 1953 Unknown [id number] 2.16.84 0.1.533506.3.579.2.593 1953 Unknown [id number] 2.16.84 0.1.695968.3.579.2.593 1953 Unknown [id number] 2.16.84 0.1.919260.3.579.2.593 1953 Unknown [id number] 2.16.84 0.1.290395.3.579.2.593 1953 Unknown [id number] 2.16.84 0.1.327539.3.579.2.593 1953 Unknown [id number] 2.16.84 0.1.872416.3.579.2.593 1953 Unknown [id number] 2.16.84 0.1.711323.3.579.2.593 1953 Unknown [id number] 2.16.84 0.1.207983.3.579.2.1259 1953 Unknown [id number] 2.16.84 0.1.416272.3.579.2.1259 1953 Unknown [id number] 2.16.84 0.1.360400.3.579.2.1259 1953 Unknown [id number] 2.16.84 0.1.815869.3.579.2.1259 1953 Unknown [id number] 2.16.84 0.1.789295.3.579.2.9 1953 Unknown [id number] 2.16.84 0.1.311156.3.579.2.1259 1953 Unknown [id number] 2.16.84 0.1.975086.3.579.2.9 1953 Unknown [id number] 2.16.84 0.1.486799.3.579.2.1258 1953 Unknown [id number] 2.16.84 0.1.073244.3.579.2.9 1953 Unknown [id number] 2.16.84 0.1.502976.3.579.2.1258 1953 Unknown [id number] 2.16.84 0.1.873051.3.579.2.1259 1953 Unknown [id number] 2.16.84 0.1.175202.3.579.2.9 1953 Unknown [id number] 2.16.84 0.1.882129.3.579.2.9 1953 Unknown [id number] 2.16.84 0.1.184502.3.579.2.9 1953 Unknown [id number] 2.16.84 0.1.720962.3.579.2.1259 1953 Unknown [id number] 2.16.84 0.1.362285.3.579.2.9 1953 Unknown [id number] 2.16.84 0.1.700428.3.579.2.9 1953 Unknown [id number] 2.16.84 0.1.766786.3.579.2.1258 1953 Unknown [id number] 2.16.84 0.1.431797.3.579.2.1259 1953 Unknown [id number] 2.16.84 0.1.745280.3.579.2.1259 1953 Unknown [id number] 2.16.84 0.1.533979.3.579.2.1259 1953 Unknown [id number] 2.16.84 0.1.359040.3.579.2.1259 1953 Unknown [id number] 2.16.84 0.1.805736.3.579.2.1259 1953 Unknown [id number] 2.16.84 0.1.195066.3.579.2.1258 1953 Unknown [id number] 2.16.84 0.1.619128.3.579.2.9 1953 Unknown [id number] 2.16.84 0.1.270470.3.579.2.1258 1953 Unknown [id number] 2.16.84 0.1.425827.3.579.2.9 1953 Unknown [id number] 2.16.84 0.1.684869.3.579.2.9 1953 Unknown [id number] 2.16.84 0.1.300457.3.579.2.1259 1953 Unknown [id number] 2.16.84 0.1.297656.3.579.2.9 1953 Unknown [id number] 2.16.84 0.1.977722.3.579.2.9 1953 Unknown [id number] 2.16.84 0.1.659589.3.579.2.9 1953 Unknown [id number] 2.16.84 0.1.412163.3.579.2.1259 1953 Unknown [id number] 2.16.84 0.1.149010.3.579.2.1259 1953 Unknown [id number] 2.16.84 0.1.449846.3.579.2.1259 1953 Unknown [id number] 2.16.84 0.1.530835.3.579.2.1259 1953 Unknown [id number] 2.16.84 0.1.748494.3.579.2.1259 1953 Unknown [id number] 2.16.84 0.1.267892.3.579.2.1259 Medicare [id number] Unknown O [id number] Unknown [id number] 2.16.8 40.1.682476.3.579.2.531 Unknown [id number] 2.16.8 40.1.318819.3.579.2.531 Unknown [id number] 2.16.8 40.1.562168.3.579.2.531 Unknown [id number] 2.16.8 40.1.890715.3.579.2.531 Unknown [id number] 2.16.8 40.1.567552.3.579.2.531 Unknown [id number] 2.16.8 40.1.815301.3.579.2.531 Social History Date Type Detail Facility Start: 08-07-2023 End: 08-01-2024 No illicit drug use No illicit drug use [facility] 250 DO Work Phone: Comment on above: Quit 43 years ago; Start: 08-07-2023 End: 08-01-2024 Sex Assigned At [facility] Instant Information Other Start: 02-14-2023 Tobacco smoking status NHIS Never smoked tobacco [facility] Start: 02-14-2023 Tobacco use and exposure Smokeless tobacco non-user [facility] Start: 08-07-2023 End: 08-01-2024 Alcohol intake Lifetime non-drinker (finding) [facility] Start: 1955 Sex Assigned At Not on file N [facility] Start: 08-02-2023 End: 10-30-2023 Tobacco smoking status NHIS Ex-smoker (finding) [facility] Start: 1955 Sex Assigned At Male F [facility] Start: 07-23-2024 End: 09-12-2024 Sex Male (finding) [facility] Goals Date Patient Goal Desired Activity /State Clinical Notes 05-27-2021 to 09-16-2024 Telephone Encounter - Abeba Garcia - 09/16/2024 11:13 AM ESTTelephone Encounter - Abeba Garcia - 09/16/2024 11:13 AM ESTTelephone Encounter - Abeba Garcia - 09/10/2024 4:09 PM EST Note Date & Type Note Facility 09-16-2024 Telephone encounter Note Form atting of this note might be different from the original. 4 attempts w/ no contact; unable to lm. [facility] 09-16-2024 Miscellaneous Notes Formattin g of this note might be different from the original. 4 attempts w/ no contact; unable to lm. 3 attempts unable to contact. Tried to contact to note receiving ext of C-9 for the 1 visit to = 12 PT. I called and confirmed the ext date was for 1 remaining PT; I was told yes, and when that is used another request can be sent in for more auth. documented in this encounter [facility] 09-10-2024 Telephone encounter Note Form atting of this note might be different from the original. 3 attempts unable to contact. [facility] 09-05-2024 Telephone encounter Note Form atting of this note might be different from the original. Tried to contact to note receiving ext of C-9 for the 1 visit to = 12 PT. I called and confirmed the ext date was for 1 remaining PT; I was told yes, and when that is used another request can be sent in for more auth. [facility] 08-26-2024 History of Presen t illness Narrative Images from the original note were not included. Physical Therapy Treatment Visit Patient Name: Lisa Osuna Today's Date: 08/26/24 Encounter Diagnosis Name Primary? Strain of right shoulder, initial encounter Yes Visit number: 9 (2 Visits in 2023) Timed Code Treatment Minutes: 40 minutes Total Treatment Time: 40 minutes Time In: 1630 Time Out: 1710 History: Pt. Presents to PT with c/c of right shoulder pain. Pt. Injured right shoulder on 06/24/24 while at work. Pt. Went to caught a part that slipped with right shoulder and felt little pop in right shoulder. Pt. Filled out accident report. Next day started having severe shoulder pain and constant ache in his shoulder. Occasionally N/T in right UE. Difficulty sleeping at night. No injection. Work: [employer] (still working but on light duty). Precautions: open heart surgery 6 bypass (2015) Subjective: Pt reports he is pleased with his progress. Pain: 2/10 with activity Objective: PT Evaluation (07/09/24) Right shoulder AROM: flexion 90 deg, abduction 75 deg, ER C5, IR L3 Right shoulder PROM: flexion 170 deg, abduction 140 deg Right shoulder Strength: core 4+/5, scapular 4/5 Treatment: Education: HEP education with demonstration, Educated on Eval Findings and POC Manual Therapy: ( minutes) R GH capsular stretch, STM, PROM to improve ROM right shoulder and decrease pain/impingement. Therapeutic Exercise: (30 minutes) Exercises instructed to improve RTC and shoulder strength to support shoulder during activity. Strength, Endurance, Flexibility, ROM, HEP, Neural Mobilization, Power, and Core Stability Therapeutic Activity: (10 minutes) Exercises to improve dynamic activities, functional tasks, functional mobility to return to prior activity level Neuromuscular re-education: Balance Training, Muscle Facilitation, Dynamic Stability, Core Stabilization, and Blood Flow Restriction Training (BFRT) Modalities: Heat, Ice, Electrical Stimulation, Ultrasound, Cervical Mechanical Traction, Lumbar Mechanical Traction, Iontophoresis, and Fluidotherapy Assessment: Pt. Has participated 11 PT session with start of POC on right shoulder pain. Good effort with all ther ex. Last C9 authorization next PT session. Will get measurement and recommend to continue PT for 3-4 additional weeks to help him continue to improve shoulder strength to return to PLOF. Outcome Measure: 58/80 Short Term Goal: To be met in 2 weeks Goal 1: Pt to be instructed in home exercise program. Alf Goals: To be met in 10 weeks Goal 1: Pt to report independence and compliance with home program. Goal 2: Pt. Will report of 0/10 right shoulder pain while performing overhead activities and work tasks. Goal 3: Pt. Will demonstrate 160 degrees right shoulder pain while performing overhead activities and work tasks. Goal 4: Pt. Demonstrate 5/5 right shoulder strength grossly in all planes to allow him to lift/carry objects to help him return to full work duty. Goal 5: Pt. Will score 70 on UEFS to help him return to work. Pt will benefit from skilled PT for 2-3x/week from 07/09/24 to 09/17/24 to address the above impairments. I hereby deem this POC medically necessary. Please sign below. Date: documented in this encounter [facility] 08-19-2024 History of Presen t illness Narrative Images from the original note were not included. Physical Therapy Treatment Visit Patient Name: Lisa Osuna Today's Date: 08/19/24 Encounter Diagnosis Name Primary? Strain of right shoulder, initial encounter Yes Visit number: 8 (2 Visits in 2023) Timed Code Treatment Minutes: 40 minutes Total Treatment Time: 40 minutes Time In: 1600 Time Out: 1640 History: Pt. Presents to PT with c/c of right shoulder pain. Pt. Injured right shoulder on 06/24/24 while at work. Pt. Went to caught a part that slipped with right shoulder and felt little pop in right shoulder. Pt. Filled out accident report. Next day started having severe shoulder pain and constant ache in his shoulder. Occasionally N/T in right UE. Difficulty sleeping at night. No injection. Work: [employer] (still working but on light duty). Precautions: open heart surgery 6 bypass (2016) Subjective: Pt reports he can tell his shoulder is getting stronger. Pain: 2/10 with activity Objective: PT Evaluation (07/09/24) Right shoulder AROM: flexion 90 deg, abduction 75 deg, ER C5, IR L3 Right shoulder PROM: flexion 170 deg, abduction 140 deg Right shoulder Strength: core 4+/5, scapular 4/5 Treatment: Education: HEP education with demonstration, Educated on Eval Findings and POC Manual Therapy: ( minutes) R GH capsular stretch, STM, PROM to improve ROM right shoulder and decrease pain/impingement. Therapeutic Exercise: (30 minutes) Exercises instructed to improve RTC and shoulder strength to support shoulder during activity. Strength, Endurance, Flexibility, ROM, HEP, Neural Mobilization, Power, and Core Stability Therapeutic Activity: (10 minutes) Exercises to improve dynamic activities, functional tasks, functional mobility to return to prior activity level Neuromuscular re-education: Balance Training, Muscle Facilitation, Dynamic Stability, Core Stabilization, and Blood Flow Restriction Training (BFRT) Modalities: Heat, Ice, Electrical Stimulation, Ultrasound, Cervical Mechanical Traction, Lumbar Mechanical Traction, Iontophoresis, and Fluidotherapy Assessment: Pt. Has participated 10 PT session with start of POC on right shoulder pain. Good effort with all ther ex. Pt. Demonstrates improved shoulder and biceps muscle strength. Less fatigue noted with band exercises. 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 Goal 2: Pt. Will report of 0/10 right shoulder pain while performing overhead activities and work tasks. Goal 3: Pt. Will demonstrate 160 degrees right shoulder pain while performing overhead activities and work tasks. Goal 4: Pt. Demonstrate 5/5 right shoulder strength grossly in all planes to allow him to lift/carry objects to help him return to full work duty. Goal 5: Pt. Will score 70 on UEFS to help him return to work. Pt will benefit from skilled PT for 2-3x/week from 07/09/24 to 09/17/24 to address the above impairments. I hereby deem this POC medically necessary. Please sign below. Date: documented in this encounter [facility] 08-15-2024 History of Presen t illness Narrative Images from the original note were not included. Physical Therapy Treatment Visit Patient Name: Lisa Osuna Today's Date: 08/15/2024 Encounter Diagnosis Name Primary? Strain of right shoulder, initial encounter Yes Visit number: 7 (2 Visits in 2023) Timed Code Treatment Minutes: 40 minutes Total Treatment Time: 40 minutes Time In: 1600 Time Out: 1640 History: Pt. Presents to PT with c/c of right shoulder pain. Pt. Injured right shoulder on 06/24/24 while at work. Pt. Went to caught a part that slipped with right shoulder and felt little pop in right shoulder. Pt. Filled out accident report. Next day started having severe shoulder pain and constant ache in his shoulder. Occasionally N/T in right UE. Difficulty sleeping at night. No injection. Work: [employer] (still working but on light duty). Precautions: open heart surgery 6 bypass (2016) Subjective: Pt reports ortho says no surgery and continue PT. Still on light duty. Pt feels the arm strength is most concerning. It just doesn't seem like it is getting any stronger . Pain: 3/10 with activity Objective: PT Evaluation (07/09/24) Right shoulder AROM: flexion 90 deg, abduction 75 deg, ER C5, IR L3 Right shoulder PROM: flexion 170 deg, abduction 140 deg Right shoulder Strength: core 4+/5, scapular 4/5 Treatment: Education: HEP education with demonstration, Educated on Eval Findings and POC Manual Therapy: ( minutes) R GH capsular stretch, STM, PROM to improve ROM right shoulder and decrease pain/impingement. Therapeutic Exercise: (30 minutes) Exercises instructed to improve RTC and shoulder strength to support shoulder during activity. Strength, Endurance, Flexibility, ROM, HEP, Neural Mobilization, Power, and Core Stability Therapeutic Activity: (10 minutes) Exercises to improve dynamic activities, functional tasks, functional mobility to return to prior activity level Neuromuscular re-education: Balance Training, Muscle Facilitation, Dynamic Stability, Core Stabilization, and Blood Flow Restriction Training (BFRT) Modalities: Heat, Ice, Electrical Stimulation, Ultrasound, Cervical Mechanical Traction, Lumbar Mechanical Traction, Iontophoresis, and Fluidotherapy Assessment: Pt. Has participated 9 PT session with start of POC on right shoulder pain. Good effort with all ther ex. Shoulder weakness still present. Working to continue to improve right UE strength. Good effort with all ther ex. Outcome Measure: 58/80 Short Term Goal: To be met in 2 weeks Goal 1: Pt to be instructed in home exercise program. Alf Goals: To be met in 10 weeks Goal 1: Pt to report independence and compliance with home program. Goal 2: Pt. Will report of 0/10 right shoulder pain while performing overhead activities and work tasks. Goal 3: Pt. Will demonstrate 160 degrees right shoulder pain while performing overhead activities and work tasks. Goal 4: Pt. Demonstrate 5/5 right shoulder strength grossly in all planes to allow him to lift/carry objects to help him return to full work duty. Goal 5: Pt. Will score 70 on UEFS to help him return to work. Pt will benefit from skilled PT for 2-3x/week from 07/09/24 to 09/17/24 to address the above impairments. I hereby deem this POC medically necessary. Please sign below. Date: documented in this encounter [facility] 08-08-2024 History of en t illness Narrative Images from the original note were not included. Physical Therapy Treatment Visit Patient Name: Lisa Osuna Today's Date: 08/08/24 Encounter Diagnoses Name Primary? Strain of right shoulder, initial encounter Yes Visit number: 5 (2 Visits in 2023) Timed Code Treatment Minutes: 40 minutes Total Treatment Time: 40 minutes Time In: 1600 Time Out: 1740 History: Pt. Presents to PT with c/c of right shoulder pain. Pt. Injured right shoulder on 06/24/24 while at work. Pt. Went to caught a part that slipped with right shoulder and felt little pop in right shoulder. Pt. Filled out accident report. Next day started having severe shoulder pain and constant ache in his shoulder. Occasionally N/T in right UE. Difficulty sleeping at night. No injection. Work: [employer] (still working but on light duty). Precautions: open heart surgery 6 bypass (2015) Subjective: Pt reports ortho says no surgery and continue PT. Still on light duty. Pain: 3/10 with activity Objective: PT Evaluation (07/09/24) Right shoulder AROM: flexion 90 deg, abduction 75 deg, ER C5, IR L3 Right shoulder PROM: flexion 170 deg, abduction 140 deg Right shoulder Strength: core 4+/5, scapular 4/5 Treatment: Education: HEP education with demonstration, Educated on Eval Findings and POC Manual Therapy: ( minutes) R GH capsular stretch, STM, PROM to improve ROM right shoulder and decrease pain/impingement. Therapeutic Exercise: (30 minutes) Exercises instructed to improve RTC and shoulder strength to support shoulder during activity. Strength, Endurance, Flexibility, ROM, HEP, Neural Mobilization, Power, and Core Stability Therapeutic Activity: (10 minutes) Exercises to improve dynamic activities, functional tasks, functional mobility to return to prior activity level Neuromuscular re-education: Balance Training, Muscle Facilitation, Dynamic Stability, Core Stabilization, and Blood Flow Restriction Training (BFRT) Modalities: Heat, Ice, Electrical Stimulation, Ultrasound, Cervical Mechanical Traction, Lumbar Mechanical Traction, Iontophoresis, and Fluidotherapy Assessment: Pt. Has participated 7 PT session with start of POC on right shoulder pain. Good effort with all ther ex. Shoulder weakness still present. Outcome Measure: 58/80 Short Term Goal: To be met in 2 weeks Goal 1: Pt to be instructed in home exercise program. Alf Goals: To be met in 10 weeks Goal 1: Pt to report independence and compliance with home program. Goal 2: Pt. Will report of 0/10 right shoulder pain while performing overhead activities and work tasks. Goal 3: Pt. Will demonstrate 160 degrees right shoulder pain while performing overhead activities and work tasks. Goal 4: Pt. Demonstrate 5/5 right shoulder strength grossly in all planes to allow him to lift/carry objects to help him return to full work duty. Goal 5: Pt. Will score 70 on UEFS to help him return to work. Pt will benefit from skilled PT for 2-3x/week from 07/09/24 to 09/17/24 to address the above impairments. I hereby deem this POC medically necessary. Please sign below. Date: documented in this encounter [facility] 08-08-2024 Evaluation note Diagnosis Onset Date Resolution Strain of unspecified muscle, fascia and tendon at shoulder and upper arm l acute August 08 9:47am Superior glenoid labrum lesion of right shoulder, initial encounter acute August 08 9:47am [facility] Work Phone: 1(412) 364-803501-23-2025 Evaluation note* Diagnosis Onset Date Resolution Status Admit Date Strain of unspecified muscle , fascia and tendon at shoulder and upper arm l acute August 08 9:47am Superior glenoid labrum lesi on of right shoulder, initial encounter acute August 08 9:47am Primary osteoarthritis of le ft knee acute August 14 1:16pm Primary osteoarthritis of ri ght knee acute August 14 1:16pm Primary osteoarthritis of le ft knee acute September 12, 025 8:15am Primary osteoarthritis of ri ght knee acute September 12, 025 8:15am [facility] Work Phone: 1(934) 730-725801-21-2025 History of Present illness Narrative* Oziel Sage, PT - 08/06/2024 4:30 PM EST Images from the original note were not included. Physical Therapy Treatment Visit Patient Name: Lisa Osuna Today's Date: 08/06/24 Encounter Diagnoses Name Primary? Strain of right shoulder, initial encounter Yes Visit number: 4 (2 Visits in 2023) Timed Code Treatment Minutes: 40 minutes Total Treatment Time: 40 minutes Time In: 1430 Time Out: 1510 History: Pt. Presents to PT with c/c of right shoulder pain. Pt. Injured right shoulder on 06/24/24while at work. Pt. Went to caught a part that slipped with right shoulder and felt little pop in right shoulder. Pt. Filled out accident report. Next day started having severe shoulder pain and constant ache in his shoulder. Occasionally N/T in right UE. Difficulty sleeping at night. No injection. Work: [employer] (still working but on light duty). Precautions: open heart surgery 6 bypass (2015) Subjective: Pt reports of improved shoulder ROM. Had MRI and show minimal tear in SLAP. Had ortho appointment on 08/[address] Salinas. Pain: 4/10 with activity Objective: PT Evaluation (07/09/24) Right shoulder AROM: flexion 90 deg, abduction 75 deg, ER C5, IR L3 Right shoulder PROM: flexion 170 deg, abduction 140 deg Right shoulder Strength: core 4+/5, scapular 4/5 Treatment: Education: HEP education with demonstration, Educated on Eval Findings and POC Manual Therapy: ( minutes) R GH capsular stretch, STM, PROM to improve ROM right shoulder and decrease pain/impingement. Therapeutic Exercise: (30 minutes) Exercises instructed to improve RTC and shoulder strength to support shoulder during activity. Strength, Endurance, Flexibility, ROM, HEP, Neural Mobilization, Power, and Core Stability Therapeutic Activity: (10 minutes) Exercises to improve dynamic activities, functional tasks, functional mobility to return to prior activity level Neuromuscular re-education: Balance Training, Muscle Facilitation, Dynamic Stability, Core Stabilization, and Blood Flow Restriction Training (BFRT) Modalities: Heat, Ice, Electrical Stimulation, Ultrasound, Cervical Mechanical Traction, Lumbar Mechanical Traction, Iontophoresis, and Fluidotherapy Assessment: Pt. Has participated 6 PT session with start of POC on right shoulder pain. Pt. Demonstrates 150 degrees of active shoulder flexion and abduction. Pt. Demonstrates improved shoulder ROM grossly in all planes but continues to demonstrate significant right shoulder weakness and biceps muscle weakness. Biceps strength 3+/5, good effort with all ther ex. Outcome Measure: 58/80 Short Term Goal: To be met in 2 weeks Goal 1: Pt to be instructed in home exercise program. Alf Goals: To be met in 10 weeks Goal 1: Pt to report independence and compliance with home program. Goal 2: Pt. Will report of 0/10 right shoulder pain while performing overhead activities and work tasks. Goal 3: Pt. Will demonstrate 160 degrees right shoulder pain while performing overhead activities and work tasks. Goal 4: Pt. Demonstrate 5/5 right shoulder strength grossly in all planes to allow him to lift/carry objects to help him return to full work duty. Goal 5: Pt. Will score 70 on UEFS to help him return to work. Pt will benefit from skilled PT for 2-3x/week from 07/09/24 to 09/17/24 to address the above impairments. I hereby deem this POC medically necessary. Please sign below. Date: documented in this encounterSaint [facility] [id number] History of Present illness Narrative* Zoila Fountain, IBIS - 08/01/2024 3:30 PM EST Images from the original note were not included. Subjective Patient ID: Lisa Jurado is a 69 y.o. male who presents for laryngitis. Lisa presents today for laryngitis, he has had a problem with this for the last 3 months. He wasseen on 05-02-24 and 06-20-24 for this same problem. Current Outpatient Medications on File Prior to Visit Medication Sig Dispense Refill ASPIRIN 81 MG chewable tablet Oral atorvastatin (Lipitor) 80 MG tablet Take 1 tablet (80 mg) by mouth in the morning. 100 tablet 3 carvedilol (Coreg) 25 MG tablet Take 1 tablet (25 mg) by mouth in the morning and 1 tablet (25 mg) before bedtime. 180 tablet 3 chlorthalidone (Hygroton) 25 MG tablet Take 25 mg by mouth Daily cloNIDine (Catapres) 0.2 MG tablet TAKE ONE AND ONE-HALF TABLETS BY MOUTH TWICE DAILY (MORNING AND BEFORE BEDTIME) 270 tablet 0 dapagliflozin (Farxiga) 10 MG Take 1 tablet (10 mg) by mouth Daily 100 tablet 3 EQ Arthritis Pain Reliever 1 % gel USE DIRECTED 350 g 0 isosorbide mononitrate ER (Imdur) 120 MG 24 hr tablet Take 1 tablet (120 mg) by mouth Daily Do not crush or chew. 30 tablet 11 lisinopril 40 MG tablet Take 1 tablet (40 mg) by mouth Daily 90 tablet 3 semaglutide (Rybelsus) 7 MG tablet Take 1 tablet (7 mg) by mouth in the morning. Take before meals.90 tablet 3 terazosin (Hytrin) 2 MG capsule Take 3 capsules (6 mg) by mouth at bedtime 270 capsule 3 traZODone (Desyrel) 100 MG tablet Take 1 tablet (100 mg) by mouth at bedtime 30 tablet 11 No current facility-administered medications on file prior to visit. I have reviewed and reconciled the history and medication list with the patient today. No Known Allergies Social History Tobacco Use Smoking status: Never Smokeless tobacco: Never Vaping Use Vaping status: Every Day Substance Use Topics Alcohol use: Never Drug use: Defer Family History Problem Relation Name Age of Onset Hypertension Mother Hypertension Father Hypertension Brother Cancer Maternal Grandmother Cancer Sibling Hypertension Sibling Stroke Sibling Diabetes Sibling Past Medical History: Diagnosis Date Chronic kidney disease (CKD), active medical management without dialysis, stage 3 (moderate) (HCC) (CMS/HCC) COVID positive 07/09/2021 pfizer immunized Diabetes mellitus (CMS/HCC) History of medical problems 03/24/2022 Rst only images demonstrate a snall area of decreased activity basal inferior and mid anterior thomas History of medical problems 06/11/2021 Right and Left kidney show normal velocities with no vessel narrowing. Left Nephrolithiasis, nonobstructing Hypertension (CMS/HCC) Myocardial infarction (CMS/HCC) CELESTINA (obstructive sleep apnea) Past Surgical History: Procedure Laterality Date APPENDECTOMY COLONOSCOPY 10/30/2023 CORONARY ARTERY BYPASS GRAFT 05/2016 KNEE ARTHROSCOPY W/ ACL RECONSTRUCTION TENDON REPAIR lmf exploration w/ extensor UMBILICAL HERNIA REPAIR Visit Vitals Smoking Status Never Review of Systems Constitutional: Negative. HENT: Laryngitis Eyes: Negative. Respiratory: Negative. Cardiovascular: Negative. Gastrointestinal: Negative. Genitourinary: Negative. Musculoskeletal: Negative. Skin: Negative. Neurological: Negative. Psychiatric/Behavioral: Negative. Endocrine: Negative. Objective Physical Exam Vitals reviewed. Constitutional: Appearance: Normal appearance. HENT: Head: Normocephalic. Nose: Nose normal. Mouth/Throat: Mouth: Mucous membranes are moist. Palate: No mass and lesions. Pharynx: Oropharynx is clear. Comments: Hoarse voice quality Cardiovascular: Rate and Rhythm: Normal rate. Pulmonary: Effort: Pulmonary effort is normal. Neurological: General: No focal deficit present. Mental Status: He is alert and oriented to person, place, and time. Psychiatric: Mood and Affect: Mood normal. Behavior: Behavior normal. Thought Content: Thought content normal. Assessment/Plan Diagnoses and all orders for this visit: Laryngitis - Ambulatory referral to ENT; Future - amoxicillin (Amoxil) 875 MG tablet; Take 1 tablet (875 mg) by mouth in the morning and 1 tablet (875 mg) before bedtime. Do all this for 10 days. - methylPREDNISolone (Medrol Dospak) 4 MG tablets; Follow schedule on package instructions Take ATB until gone. You can perform salt water gargles throughout the day. Drink plenty of fluids.Do not take Motrin or naproxen while on the steroid as this increases the risk for GI bleed. If there is not improvement, come back to the office for further treatment. No follow-ups on file. documented in this encounterSaint John's Health [id number] History of Present illness Narrative* Leidy Jacome, PT - 07/18/2024 8:00 AM EST Physical Therapy Treatment Visit Patient Name: Lisa Jurado Today's Date: 07/18/2024 Encounter Diagnoses Name Primary? Strain of right shoulder, initial encounter Yes Visit number: 3 Timed Code Treatment Minutes: 50 minutes Total Treatment Time: 50 minutes Time In: 0800 Time Out: 0850 History: Pt. Presents to PT with c/c of right shoulder pain. Pt. Injured right shoulder on 06/24/24while at work. Pt. Went to caught a part that slipped with right shoulder and felt little pop in right shoulder. Pt. Filled out accident report. Next day started having severe shoulder pain and constant ache in his shoulder. Occasionally N/T in right UE. Difficulty sleeping at night. No injection. Work: [employer] (still working but on light duty). Precautions: open heart surgery 6 bypass (2016) Subjective: Pt reports shoulder gets tingly when sitting. No adverse effects to last session. Neck pain and scapular pain have resolved. Pain mostly tip of acromion. Pain: 2-3/10 rest; 5-6/10 average with use Objective: PT Evaluation (07/09/24) Right shoulder AROM: flexion 90 deg, abduction 75 deg, ER C5, IR L3 Right shoulder PROM: flexion 170 deg, abduction 140 deg Right shoulder Strength: core 4+/5, scapular 4/5 Treatment: Education: HEP education with demonstration, Educated on Eval Findings and POC Manual Therapy: Passive ROM, Joint mobilization, Soft Tissue Mobilization, Myofascial Release, Muscle Energy Technique, Neural Mobilization, Myofascial Cupping, Dry Needling, IASTM, and Scar mobilization Therapeutic Exercise: (35 minutes) Exercises instructed to improve RTC and shoulder strength to support shoulder during activity. Strength, Endurance, Flexibility, ROM, HEP, Neural Mobilization, Power, and Core Stability Manual Therapy: (15 minutes) R GH capsular stretch, upper T-spine and rib mobes to improve ROM right shoulder and decrease pain/impingement. Therapeutic Activity: Exercises to improve dynamic activities, functional tasks, functional mobility to return to prior activity level Neuromuscular re-education: Balance Training, Muscle Facilitation, Dynamic Stability, Core Stabilization, and Blood Flow Restriction Training (BFRT) Modalities: Heat, Ice, Electrical Stimulation, Ultrasound, Cervical Mechanical Traction, Lumbar Mechanical Traction, Iontophoresis, and Fluidotherapy Assessment: Pt. Has participated 3 PT session with start of POC on right shoulder pain. Instructed Pt through conservative shoulder/RTC strengthening to improve use. PROM is near full. Active flexion 135, abd 140 degrees. Active ROM improved since last session. Rotator cuff tear tests are negative at this time. Pt tolerated session and progressions well. EducatedPt to keep all exercises within tolerance. Minor cues needed for technique. Pt. Will benefit from skilled PT services. Pt demonstrate possible Rotator cuff tear and recommend MRI as soon as possible. 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 Goal 2: Pt. Will report of 0/10 right shoulder pain while performing overhead activities and work tasks. Goal 3: Pt. Will demonstrate 160 degrees right shoulder pain while performing overhead activities and work tasks. Goal 4: Pt. Demonstrate 5/5 right shoulder strength grossly in all planes to allow him to lift/carry objects to help him return to full work duty. Goal 5: Pt. Will score 70 on UEFS to help him return to work. Pt will benefit from skilled PT for 2-3x/week from 07/09/24 to 09/17/24 to address the above impairments. I hereby deem this POC medically necessary. Please sign below. Date: documented in this encounterSaint John's Health [id number] History of Present illness Narrative* Oziel Sage, PT - 07/09/2024 8:30 AM EST Physical Therapy Evaluation Visit Patient Name: Lisa Jurado Today's Date: 07/09/2024 Encounter Diagnoses Name Primary? Strain of right shoulder, initial encounter Yes Visit number: 1 Timed Code Treatment Minutes: 60 minutes Total Treatment Time: 60 minutes Time In: 829 Time Out: 929 History: Pt. Presents to PT with c/c of right shoulder pain. Pt. Injured right shoulder on 06/24/24while at work. Pt. Went to caught a part that slipped with right shoulder and felt little pop in right shoulder. Pt. Filled out accident report. Next day started having severe shoulder pain and constant ache in his shoulder. Occasionally N/T in right UE. Difficulty sleeping at night. No injection. Work: [employer] (still working but on light duty). Precautions: open heart surgery 6 bypass (2016) Subjective Pain: 2-3/10 rest; 6/10 Objective: PT Evaluation (07/09/24) Right shoulder AROM: flexion 90 deg, abduction 75 deg, ER C5, IR L3 Right shoulder PROM: flexion 170 deg, abduction 140 deg Right shoulder Strength: core 4+/5, scapular 4/5 Treatment: PT evaluation (20 minutes) Education: HEP education with demonstration, Educated on Eval Findings and POC Manual Therapy: Passive ROM, Joint mobilization, Soft Tissue Mobilization, Myofascial Release, Muscle Energy Technique, Neural Mobilization, Myofascial Cupping, Dry Needling, IASTM, and Scar mobilization Therapeutic Exercise: (12 minutes) Strength, Endurance, Flexibility, ROM, HEP, Neural Mobilization,Power, and Core Stability Therapeutic Activity: Exercises to improve dynamic activities, functional tasks, functional mobility to return to prior activity level Neuromuscular re-education: Balance Training, Muscle Facilitation, Dynamic Stability, Core Stabilization, and Blood Flow Restriction Training (BFRT) Modalities: Heat, Ice, Electrical Stimulation, Ultrasound, Cervical Mechanical Traction, Lumbar Mechanical Traction, Iontophoresis, and Fluidotherapy Assessment: Pt. Has participated 1 PT session with start of POC on right shoulder pain. Pt. Will benefit from skilled PT services. Pt demonstrate possible Rotator cuff tear and recommend MRI as soon as possible. 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 Goal 2: Pt. Will report of 0/10 right shoulder pain while performing overhead activities and work tasks. Goal 3: Pt. Will demonstrate 160 degrees right shoulder pain while performing overhead activities and work tasks. Goal 4: Pt. Demonstrate 5/5 right shoulder strength grossly in all planes to allow him to lift/carry objects to help him return to full work duty. Goal 5: Pt. Will score 70 on UEFS to help him return to work. Pt will benefit from skilled PT for 2-3x/week from 07/09/24 to 09/17/24 to address the above impairments. I hereby deem this POC medically necessary. Please sign below. Date: documented in this encounterSaint John's Health [id number] Telephone encounter Note* Telephone Encounter - Abeba Garcia - 07/08/2024 11:45 AM EST Scheduled him out to 07/18/24 w/ PT. [facility] [id number] Miscellaneous Notes* Telephone Encounter - Abeba Garcia - 07/08/2024 11:45 AM EST Scheduled him out to 07/18/24 w/ PT. * Telephone Encounter - Abeba Garcia - 07/05/2024 1:12 PM EST Tried to contact to set up PT, going thru [facility], w/ visits dated out to 08/06/24. There was no answer and voicemail was full. documented in this encounterSaint John's Health [id number] Telephone encounter Note* Telephone Encounter - Abeba Garcia - 07/05/2024 1:12 PM EST Tried to contact to set up PT, going thru [facility], w/ 12 visits dated out to 08/06/24. There was no answer and voicemail was full. [facility] [id number] History of Present illness Narrative* Zoila Fountain, COLLAR TACKER - 06/20/2024 4:30 PM EST Images from the original note were not included. Subjective Patient ID: Lisa Jurado is a 69 y.o. male who presents for a horse voice. Lisa presents today for issues with horse voice. This has been going on for over a month. He took an antibiotic and that helped but now it's coming back. Pt had laryngitis previously. He was on Amoxicillin and it was effective. He will salt water gargles again and if he is not improving, he going to come back to the office. Current Outpatient Medications on File Prior to Visit Medication Sig Dispense Refill ASPIRIN 81 MG chewable tablet Oral atorvastatin (Lipitor) 80 MG tablet Take 1 tablet (80 mg) by mouth in the morning. 100 tablet 3 carvedilol (Coreg) 25 MG tablet Take 1 tablet (25 mg) by mouth in the morning and 1 tablet (25 mg) before bedtime. 180 tablet 3 chlorthalidone (Hygroton) 25 MG tablet Take 25 mg by mouth Daily cloNIDine (Catapres) 0.2 MG tablet TAKE ONE AND ONE-HALF TABLETS BY MOUTH TWICE DAILY (MORNING AND BEFORE BEDTIME) 270 tablet 0 dapagliflozin (Farxiga) 10 MG Take 1 tablet (10 mg) by mouth Daily 100 tablet 3 EQ Arthritis Pain Reliever 1 % gel USE DIRECTED 350 g 0 isosorbide mononitrate ER (Imdur) 120 MG 24 hr tablet Take 1 tablet (120 mg) by mouth Daily Do not crush or chew. 30 tablet 11 lisinopril 40 MG tablet Take 1 tablet (40 mg) by mouth Daily 90 tablet 3 semaglutide (Rybelsus) 7 MG tablet Take 1 tablet (7 mg) by mouth in the morning. Take before meals.90 tablet 3 terazosin (Hytrin) 2 MG capsule Take 3 capsules (6 mg) by mouth at bedtime 270 capsule 3 traZODone (Desyrel) 100 MG tablet Take 1 tablet (100 mg) by mouth at bedtime 30 tablet 11 No current facility-administered medications on file prior to visit. I have reviewed and reconciled the history and medication list with the patient today. No Known Allergies Social History Tobacco Use Smoking status: Never Smokeless tobacco: Never Substance Use Topics Alcohol use: Never Drug use: Defer Family History Problem Relation Name Age of Onset Hypertension Mother Hypertension Father Hypertension Brother Cancer Sibling Hypertension Sibling Stroke Sibling Diabetes Sibling Cancer Maternal Grandmother Past Medical History: Diagnosis Date Chronic kidney disease (CKD), active medical management without dialysis, stage 3 (moderate) (HCC) (CMS/HCC) COVID positive 07/09/2021 pfizer immunized Diabetes mellitus (CMS/HCC) History of medical problems 03/24/2022 Rst only images demonstrate a snall area of decreased activity basal inferior and mid anterior thomas History of medical problems 06/11/2021 Right and Left kidney show normal velocities with no vessel narrowing. Left Nephrolithiasis, nonobstructing Hypertension (CMS/HCC) Myocardial infarction (CMS/HCC) CELESTINA (obstructive sleep apnea) Past Surgical History: Procedure Laterality Date APPENDECTOMY COLONOSCOPY 10/30/2023 CORONARY ARTERY BYPASS GRAFT 05/2016 KNEE ARTHROSCOPY W/ ACL RECONSTRUCTION TENDON REPAIR lmf exploration w/ extensor UMBILICAL HERNIA REPAIR Visit Vitals Smoking Status Never Review of Systems Constitutional: Negative. HENT: Positive for voice change. Respiratory: Negative. Cardiovascular: Negative. Gastrointestinal: Negative. Genitourinary: Negative. Musculoskeletal: Negative. Skin: Negative. Neurological: Negative. Psychiatric/Behavioral: Negative. All other systems reviewed and are negative. Objective Physical Exam Vitals reviewed. Constitutional: Appearance: Normal appearance. HENT: Head: Normocephalic. Nose: Nose normal. Mouth/Throat: Mouth: Mucous membranes are moist. Pharynx: Oropharynx is clear. Eyes: Conjunctiva/sclera: Conjunctivae normal. Cardiovascular: Rate and Rhythm: Normal rate. Pulmonary: Effort: Pulmonary effort is normal. Lymphadenopathy: Cervical: Cervical adenopathy present. Skin: General: Skin is warm and dry. Neurological: General: No focal deficit present. Mental Status: He is alert and oriented to person, place, and time. Psychiatric: Mood and Affect: Mood normal. Behavior: Behavior normal. Assessment/Plan Diagnoses and all orders for this visit: Laryngitis - amoxicillin (Amoxil) 875 MG tablet; Take 1 tablet (875 mg) by mouth in the morning and 1 tablet (875 mg) before bedtime. Do all this for 10 days. - methylPREDNISolone (Medrol Dospak) 4 MG tablets; Follow schedule on package instructions Take ATB until gone. You can perform salt water gargles throughout the day. Drink plenty of fluids.Do not take Motrin or naproxen while on the steroid as this increases the risk for GI bleed. If there is not improvement, come back to the office for further treatment. No follow-ups on file. documented in this encounterSaint John's Health [id number] History of Present illness Narrative* Zoila Fountain NP - 05/02/2024 3:30 PM EDT Images from the original note were not included. Subjective Patient ID: Lisa Jurado is a 69 y.o. male who presents for Laryngitis. Pt states he is losing his voice for about 7 to 8 days NO other symptoms and is worse in the morning some days he can barely talk Pt states he believes he fainted today while he was at work , he states he was out for about 2 seconds Pt also stated he will sometimes have low BP. Current Outpatient Medications on File Prior to Visit Medication Sig Dispense Refill ASPIRIN 81 MG chewable tablet Oral atorvastatin (Lipitor) 80 MG tablet Take 1 tablet (80 mg) by mouth in the morning. 100 tablet 3 carvedilol (Coreg) 25 MG tablet Take 1 tablet (25 mg) by mouth in the morning and 1 tablet (25 mg) before bedtime. 180 tablet 3 chlorthalidone (Hygroton) 25 MG tablet Take 25 mg by mouth Daily cloNIDine (Catapres) 0.2 MG tablet TAKE ONE AND ONE-HALF TABLETS BY MOUTH TWICE DAILY (MORNING AND BEFORE BEDTIME) 270 tablet 0 dapagliflozin (Farxiga) 10 MG Take 1 tablet (10 mg) by mouth Daily 100 tablet 3 EQ Arthritis Pain Reliever 1 % gel USE DIRECTED 350 g 0 isosorbide mononitrate ER (Imdur) 120 MG 24 hr tablet Take 1 tablet (120 mg) by mouth Daily Do not crush or chew. 30 tablet 11 lisinopril 40 MG tablet Take 1 tablet (40 mg) by mouth Daily 90 tablet 3 semaglutide (Rybelsus) 7 MG tablet Take 1 tablet (7 mg) by mouth in the morning. Take before meals.90 tablet 3 terazosin (Hytrin) 2 MG capsule Take 3 capsules (6 mg) by mouth at bedtime 270 capsule 3 traZODone (Desyrel) 100 MG tablet Take 1 tablet (100 mg) by mouth at bedtime 30 tablet 11 No current facility-administered medications on file prior to visit. I have reviewed and reconciled the history and medication list with the patient today. No Known Allergies Social History Tobacco Use Smoking status: Never Smokeless tobacco: Never Substance Use Topics Alcohol use: Never Drug use: Defer Family History Problem Relation Name Age of Onset Hypertension Mother Hypertension Father Hypertension Brother Cancer Sibling Hypertension Sibling Stroke Sibling Diabetes Sibling Cancer Maternal Grandmother Past Medical History: Diagnosis Date Chronic kidney disease (CKD), active medical management without dialysis, stage 3 (moderate) (HCC) (CMS/HCC) COVID positive 07/09/2021 pfizer immunized Diabetes mellitus (CMS/HCC) History of medical problems 03/24/2022 Rst only images demonstrate a snall area of decreased activity basal inferior and mid anterior thomas History of medical problems 06/11/2021 Right and Left kidney show normal velocities with no vessel narrowing. Left Nephrolithiasis, nonobstructing Hypertension (CMS/HCC) Myocardial infarction (CMS/HCC) CELESTINA (obstructive sleep apnea) Past Surgical History: Procedure Laterality Date APPENDECTOMY COLONOSCOPY 10/30/2023 CORONARY ARTERY BYPASS GRAFT 05/2016 KNEE ARTHROSCOPY W/ ACL RECONSTRUCTION TENDON REPAIR lmf exploration w/ extensor UMBILICAL HERNIA REPAIR Visit Vitals Smoking Status Never Review of Systems Constitutional: Negative. HENT: Negative. Hoarse voice in the morning Eyes: Negative. Respiratory: Negative. Cardiovascular: Negative. Gastrointestinal: Negative. Genitourinary: Negative. Musculoskeletal: Negative. Neurological: Negative. Psychiatric/Behavioral: Negative. All other systems reviewed and are negative. Objective Physical Exam Constitutional: Appearance: Normal appearance. HENT: Head: Normocephalic. Nose: Nose normal. Mouth/Throat: Mouth: Mucous membranes are moist. Pharynx: Oropharynx is clear. Comments: Weak voice Cardiovascular: Rate and Rhythm: Normal rate and regular rhythm. Pulmonary: Effort: Pulmonary effort is normal. Breath sounds: Normal breath sounds. Skin: General: Skin is warm and dry. Neurological: General: No focal deficit present. Mental Status: He is alert and oriented to person, place, and time. Psychiatric: Mood and Affect: Mood normal. Behavior: Behavior normal. Assessment/Plan Diagnoses and all orders for this visit: Laryngitis, acute - amoxicillin (Amoxil) 875 MG tablet; Take 1 tablet (875 mg) by mouth in the morning and 1 tablet (875 mg) before bedtime. Do all this for 10 days. Take all of ATB until gone. Gargle with warm salt water daily. If there is no improvement, come back to the office, we may need to get an EGD. Acute pain of right knee - Ambulatory referral to Orthopaedic Surgery; Future Await consult. Shots are not helping. No follow-ups on file. documented in this encounterSaint John's Health [id number] [facility] Chief Complaint: Patient here for 1 mo follow up hypertension. Spironolactone was switched to chlorthalidone at last visit. Had BMP last week. BP was 162/117 1 hour after taking morning meds today. The other day when he checked his BP 1 hour after meds it was 80/60. He was lightheaded at that time. He says PCP stopped furosemide a few months ago. HPI: Lisa Jurado Sr. is a 68 y.o. male Who has resistant hypertension and history of coronary artery disease here in routine follow-up His blood pressure readings from home are scattered all over; for the most part they are between 1 30-1 70 systolic. There are occasional readings above or below this. He is asymptomatic apart from when his blood pressure is elevated he has headaches. Cardiology ROS: Review of Systems Musculoskeletal: Positive for arthritis, falls and joint pain. Neurological: Positive for headaches (when BP is elevated) and light-headedness. All other systems reviewed and [...] at bedtime., Disp: 180 tablet, Rfl: 3 chlorthalidone (Hygroton) 25 mg tablet, Take 1 tablet (25 mg) by mouth once daily as directed., Disp: 90 tablet, Rfl: 3 dapagliflozin (Farxiga) 10 mg, Take 1 tablet [...] Rfl: 3 Last Recorded Vitals BP (!) 161/93 (BP Location: Left arm, Patient Position: Sitting) Pulse 82 Ht 1.778 m (5' 10 ) Wt 110 kg (242 lb) SpO2 97% BMI 34.72 kg/m??? Physical Examination: GENERAL: alert and oriented [...] Mildly elevated right-sided pressures. Mild pulmonic regurgitation. Labs 02/19/2024: Serum creatinine is 1.82 Assessment: Coronary artery disease h/o CABG Refractory HTN - responded to loop diuretic CKD CELESTINA Obesity Palpitations Plan: Will continue the remainder of his antihypertensive regimen; He is not taking his Lasix, he is not taking his spirono (more content not included)...[facility]07-18-2024 [facility] Cardiology Clinic Note Chief Complaint: HTN control, lowest the past couple weeks have been 140. Took his meds at 9:30am this morning. HPI: Lisa Jurado is a 68 y.o. male With [...] to loop diureti (more content not included)... [facility]02-13-2024 History of Present illness Narrative* Zoila Fountain NP - 08/29/2023 11:30 AM EST Subjective Patient ID: Lisa Jurado is a 68 y.o. male who presents for low blood pressure. Lisa is present today for low blood pressure. He takes his blood pressure regularly at home and they have been low for the last two weeks. BP is usually high. He has had a blood pressure 74/56 oneday last week and others that wasn't over [...] 4 weeks ago. The problem has been graduallyworsening. There has been no fever. Associated symptoms [...] Perles prn for cough. Increase water intake, getplenty of rest. Can take Tylenol prn for any discomfort or fever. No other anti-inflammatories while on steroid. Cough into elbow. Wash hands often. Advised patient that cough can linger with bronchitis. Follow up in our office if no improvement in one week. Left non-suppurative otitis media Take ATB as ordered. Get plenty of rest. documented in this encounterNOMS [id number] Evaluation note* Encounter Date Diagnosis Assessment Notes Treatment Notes Treatment Clinical Notes Jul, Contact with and (suspected) exposure to covid-19 (ICD-10 - Z20.822) Jul, Influenza A (ICD-10 - J10.1) Patient left the urgent care prior to receiving the results of his PCR COVID, influenza, RSV testing. He was not seen by the provider. Will attempt to notify patient of his results. [employer] Other 10-25-2023 NotePatient here c/o hypotension and [...] light-headedness. All other systems reviewed and are negative.[facility]10-2023 [facility] Chief Complaint: dizziness, syncope, low BP. HPI: Lisa Jurado SrVilma is a 68 y.o. male With history [...] LICA 50-79% stenosis Assessmen (more content not included)...[facility]-19-2023 [facility] Chief Complaint: Patient here for 1 year follow up CAD and hypertension. Had labs in Aug 2022. Denies chest pain, SOB, and palpitations. Says today at home before his apt his BP was 219/119. Sometimes will run around 150 systolic. HPI: Lisa Jurado Sr. is a 67 y.o. male [...] including aspirin, high intensity statin therapy, a beta-alyssa and an SGLT2 inhibitor For resistant hypertension, [...] 4 months Judi Wilson MD, MPH, FACC, FSCA (more content not included)...[facility]12-03-2021 History of Present illness NarrativePatient returns in [...] exercise and weight loss were reviewed with him.[facility] [employer] DO Work Phone: [phone]) 225-919311-11-2021 History of Present illness Narrative* Patient is [...] he will do the best he can. [facility] [employer] DO Work Phone: Evaluation noteNo [facility] [employer] Other Evaluation note* Diagnosis Bronchitis- Primary Bronchitis, not specified as acute or chronic Left non-suppurative otitis media Nonsuppurative otitis media, not specified as acute or chronic documented in this encounter [facility] HealthcareEvaluation note* Diagnosis Onset Date Resolution Status Bilateral primary osteoarthritis of knee acute Knee pain, left acute Knee pain, right acute [facility] Work Phone: Evaluation note* Diagnosis Onset Date Resolution Status Bilateral primary osteoarthritis of knee acute [facility] Work Phone: Evaluation note* Diagnosis Onset Date Resolution Status Bilateral primary osteoarthritis of knee acute Bilateral primary osteoarthritis of knee acute Chronic pain acute Knee pain, left acute Knee pain, right acute [facility] Work Phone: Evaluation note* Diagnosis Primary hypertension ([facility]/HCC)- Primary Unspecified essential hypertension 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) ([facility]) Influenza Influenza with other respiratory manifestations 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) ([facility])- Primary Abnormal glucose tolerance test Impaired glucose tolerance test Benign essential hypertension ([facility]) Essential hypertension, benign Type 2 diabetes mellitus with microalbuminuria, without long-term current use of insulin ([facility]) Primary hypertension ([facility]) Unspecified essential hypertension Type 2 diabetes mellitus with hyperglycemia, without long-term current use of insulin ([facility]) Pulmonary hypertension, unspecified (I27.20) Laryngitis, acute- Primary Acute laryngitis, without mention of obstruction Acute pain of right knee documented in this encounter [facility] HealthcareEvaluation note* Diagnosis Primary hypertension ([facility]/HCC)- Primary Unspecified essential hypertension 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) ([facility]/HCC) Influenza Influenza with other respiratory manifestations 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) ([facility]/HCC)- Primary Abnormal glucose tolerance test Impaired glucose tolerance test Benign essential hypertension ([facility]/HCC) Essential hypertension, benign Type 2 diabetes mellitus with microalbuminuria, without long-term current use of insulin ([facility]) Primary hypertension ([facility]) Unspecified essential hypertension Type 2 diabetes mellitus with hyperglycemia, without long-term current use of insulin ([facility]) Pulmonary hypertension, unspecified (I27.20) Laryngitis- Primary Acute laryngitis, without mention of obstruction documented in this encounter [facility]* Diagnosis Primary hypertension ([facility]/HCC)- Primary Unspecified essential hypertension 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) ([facility]) Influenza Influenza with other respiratory manifestations 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) ([facility])- Primary Abnormal glucose tolerance test Impaired glucose tolerance test Benign essential hypertension ([facility]/HCC) Essential hypertension, benign Type 2 diabetes mellitus with microalbuminuria, without long-term current use of insulin ([facility]/HCC) Primary hypertension ([facility]/HCC) Unspecified essential hypertension Type 2 diabetes mellitus with hyperglycemia, without long-term current use of insulin ([facility]) Pulmonary hypertension, unspecified (I27.20) Strain of right shoulder, initial encounter- Primary documented in this encounter [facility]* Diagnosis Primary hypertension ([facility]/HCC)- Primary Unspecified essential hypertension 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) ([facility]) Influenza Influenza with other respiratory manifestations 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) ([facility]/HCC)- Primary Abnormal glucose tolerance test Impaired glucose tolerance test Benign essential hypertension ([facility]/HCC) Essential hypertension, benign Type 2 diabetes mellitus with microalbuminuria, without long-term current use of insulin ([facility]/HCC) Primary hypertension ([facility]/HCC) Unspecified essential hypertension Type 2 diabetes mellitus with hyperglycemia, without long-term current use of insulin ([facility]) Pulmonary hypertension, unspecified (I27.20) Strain of right shoulder, initial encounter- Primary documented in this encounter [facility]* Diagnosis Primary hypertension ([facility]/HCC)- Primary Unspecified essential hypertension 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) ([facility]/HCC) Influenza Influenza with other respiratory manifestations 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) ([facility]/HCC)- Primary Abnormal glucose tolerance test Impaired glucose tolerance test Benign essential hypertension ([facility]/HCC) Essential hypertension, benign Type 2 diabetes mellitus with microalbuminuria, without long-term current use of insulin ([facility]/HCC) Primary hypertension ([facility]/HCC) Unspecified essential hypertension Type 2 diabetes mellitus with hyperglycemia, without long-term current use of insulin (CMS/HCC) Pulmonary hypertension, unspecified (I27.20) Strain of right shoulder, initial encounter- Primary documented in this encounter [facility] HealthcareEvaluation note* Diagnosis Primary hypertension (CMS/HCC)- Primary Unspecified essential hypertension 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) (CMS/HCC) Influenza Influenza with other respiratory manifestations 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) (CMS/HCC)- Primary Abnormal glucose tolerance test Impaired glucose tolerance test Benign essential hypertension (CMS/HCC) Essential hypertension, benign Type 2 diabetes mellitus with microalbuminuria, without long-term current use of insulin (CMS/HCC) Primary hypertension (CMS/HCC) Unspecified essential hypertension Type 2 diabetes mellitus with hyperglycemia, without long-term current use of insulin (CMS/HCC) Pulmonary hypertension, unspecified (I27.20) Strain of right shoulder, initial encounter- Primary documented in this encounter [facility] HealthcareEvaluation noteNo assessment information availableGalion [facility] Ctr Work Phone: Evaluation note* Diagnosis Primary hypertension (CMS/HCC)- Primary Unspecified essential hypertension 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) (CMS/HCC) Influenza Influenza with other respiratory manifestations 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) (CMS/HCC)- Primary Abnormal glucose tolerance test Impaired glucose tolerance test Benign essential hypertension (CMS/HCC) Essential hypertension, benign Type 2 diabetes mellitus with microalbuminuria, without long-term current use of insulin (CMS/HCC) Primary hypertension (CMS/HCC) Unspecified essential hypertension Type 2 diabetes mellitus with hyperglycemia, without long-term current use of insulin (CMS/HCC) Pulmonary hypertension, unspecified (I27.20) Strain of right shoulder, initial encounter- Primary documented in this encounter [facility] HealthcareEvaluation note* Diagnosis Primary hypertension (CMS/HCC)- Primary Unspecified essential hypertension 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) (CMS/HCC) Influenza Influenza with other respiratory manifestations 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) (CMS/HCC)- Primary Abnormal glucose tolerance test Impaired glucose tolerance test Benign essential hypertension (CMS/HCC) Essential hypertension, benign Type 2 diabetes mellitus with microalbuminuria, without long-term current use of insulin (CMS/HCC) Primary hypertension (CMS/HCC) Unspecified essential hypertension Type 2 diabetes mellitus with hyperglycemia, without long-term current use of insulin ([facility]) Pulmonary hypertension, unspecified (I27.20) Laryngitis- Primary Acute laryngitis, without mention of obstruction Type 2 diabetes mellitus with hyperglycemia (CMS/HCC) Type 2 diabetes mellitus with diabetic chronic kidney disease ([facility]/HCC) Chronic kidney disease, stage 3a (HCC) ([facility]) Morbid (severe) obesity due to excess calories ([facility]/HCC) Essential (primary) hypertension ([facility]/HCC) Unspecified essential hypertension Body mass index (BMI) 38.0-38.9, adult Pulmonary hypertension, unspecified ([facility]/HCC) documented in this encounter [facility] HealthcareEvaluation note* Diagnosis Primary hypertension ([facility]/HCC)- Primary Unspecified essential hypertension 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) ([facility]) Influenza Influenza with other respiratory manifestations 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) ([facility]/HCC)- Primary Abnormal glucose tolerance test Impaired glucose tolerance test Benign essential hypertension ([facility]/HCC) Essential hypertension, benign Type 2 diabetes mellitus with microalbuminuria, without long-term current use of insulin ([facility]) Primary hypertension ([facility]) Unspecified essential hypertension Type 2 diabetes mellitus with hyperglycemia, without long-term current use of insulin ([facility]) Pulmonary hypertension, unspecified (I27.20) Strain of right shoulder, initial encounter- Primary documented in this encounter [facility] HealthcareEvaluation note* Diagnosis Onset Date Resolution Status Admit Date Strain of unspecified muscle , fascia and tendon at shoulder and upper arm l acute August 08 9:47am Superior glenoid labrum lesi on of right shoulder, initial encounter acute August 08 9:47am [facility] Work Phone: Evaluation note* Diagnosis Primary hypertension ([facility]/HCC)- Primary Unspecified essential hypertension 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) ([facility]) Influenza Influenza with other respiratory manifestations 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) ([facility]/HCC)- Primary Abnormal glucose tolerance test Impaired glucose tolerance test Benign essential hypertension ([facility]/HCC) Essential hypertension, benign Type 2 diabetes mellitus with microalbuminuria, without long-term current use of insulin ([facility]/HCC) Primary hypertension (CMS/[facility]) Unspecified essential hypertension Type 2 diabetes mellitus with hyperglycemia, without long-term current use of insulin (CMS/[facility]) Pulmonary hypertension, unspecified (I27.20) Strain of right shoulder, initial encounter- Primary documented in this encounter [facility] Narrative - Reported* Type Description Date Medical History HTN Medical History Arthritis Medical History Diabetes Medical History Hx of ID Medical History Hyperlipidemia Medical History Coronary artery disease Surgical History Appendectomy Surgical History Arthroscopy, bilateral knees Surgical History Hernia Surgical History Left hand Surgical History heart bypass graft x 6 Surgical History cataract removal Hospitalization History See above [facility] Other Hospital Discharge instructionsAmbulatory Orders* Referral to Pain Management Time Frame: 03/06/24, Location: [facility] Work Phone: Reason for visit Narrative* Rehabilitation - Outpatient (Routine) - Authorized Specialty Diagnoses / Procedures Referred By Chivo savage Referred To Contact Physical Therapy Diagnoses Strain of unspecified muscle, fascia and tendon at shoulder and upper arm level, right arm, initial encounter Procedures MS PHYSICAL THERAPY EVALUATION LOW COMPLEX 20 MINS MS OFFICE/OUTPATIENT [facility] Leidy Fu MD [address] [place] [address] Phone: tel: fax: [facility] [address] [facility] [address] [place] [address] Phone: tel: fax: Referral ID Status Reason Start Date Expiration Date V isits Requested Visits Authorized [id number] Authorized 06/25/2024 08/06/2024 12 12 [facility] HealthcareReason for visit Narrative* Rehabilitation - Outpatient (Routine) - Authorized Specialty Diagnoses / Procedures Referred By Chivo savage Referred To Contact Physical Therapy Diagnoses Strain of unspecified muscle, fascia and tendon at shoulder and upper arm level, right arm, initial encounter Procedures MS PHYSICAL THERAPY EVALUATION LOW COMPLEX 20 MINS MS OFFICE/OUTPATIENT [facility] Leidy uF MD [address] [place] [address] Phone: tel: fax: [facility] [address] [facility] [address] [place] [address] Phone: tel: fax: Referral ID Status Reason Start Date Expiration Date V isits Requested Visits Authorized [id number] Authorized 06/25/2024 12 12 [facility] Narrative* Rehabilitation - Outpatient (Routine) - Authorized Specialty Diagnoses / Procedures Referred By Contac t Referred To Contact Physical Therapy Diagnoses Strain of unspecified muscle, fascia and tendon at shoulder and upper arm level, right arm, initial encounter Procedures MS PHYSICAL THERAPY EVALUATION LOW COMPLEX 20 MINS MS OFFICE/OUTPATIENT [facility] Leidy Bennett MD [address] [place] [address] Phone: tel: fax: [facility] [address] [address] Phone: tel: fax: Referral ID Status Reason Start Date Expiration Date V isits Requested Visits Authorized [id number] Authorized 06/25/2024 08/30/2024 12 12 [facility] Summary Purpose Family History Unknown Family Member Name Dates Details Heart [...] (CVA) Unknown brother Amyotrophic lateral sclerosis Unknown Relationship Condition Age at Onset Recorded Date/T evelyn father Heart disease Unknown Unknown family member Family history of other condition Unknow n mother Heart disease Unknown brother Malignant neoplasm Unknown brother Cerebrovascular accident (CVA) Unknown brother Amyotrophic lateral sclerosis Unknown Advance Directives Advance Directive Response Recorded Date/ Time Advance Directives No June 19, 2017 10:54am Advance Directive Response Recorded Date/ Time Advance Directives No June 19, 2017 11:54am Chief Complaint LISA JURADO is being seen for New Patient.LISA JURADO is being seen for New Patient.LISA JURADO is being seen for hypertension. Chief [...] pain, left Knee pain, right Chief Complaint 3 MONTHS Reason for Visit Bilateral primary os teoarthritis of knee Chief Complaint 3 MONTHS CONSULT [facility] TEE KNEE PAIN Reason for Visit Bilateral primary os teoarthritis of knee Bilateral primary osteoarthritis of knee Chronic pain Knee pain, left Knee pain, right Chief Complaint Admit Date S46June 25, 2024 11:08am [id number] July 04, 2024 2:30pm [email or web address] July 22, 2024 5: 28pm Chief Complaint Admit Date [id number] June 25, 2024 11:08am [email or web address] July 04, 2024 2:30pm [email or web address] July 22, 2024 5: 28pm [email or web address] July 26, 2024 2 :30pm Chief Complaint Admit Date [id number] June 25, 2024 11:08am [email or web address] July 04, 2024 2:30pm [email or web address] July 22, 2024 5: 28pm [email or web address] July 26, 2024 2 :30pm [facility] DOI 06/24/24 RT SHOULDER INJURY MRI F [facility] August 08, 2024 9:47am Reason for Visit Admit Date Strain of unspecified muscle , fascia and tendon at shoulder and upper arm l August 08, 2024 9:47am Superior glenoid labrum lesi on of right shoulder, initial encounter August 08, 2024 9:47am Chief Complaint Admit Date [id number] June 25, 2024 11:08am [email or web address] July 04, 2024 2:30pm [email or web address] July 22, 2024 5: 28pm [email or web address] July 26, 2024 2 :30pm [facility] DOI 06/24/24 RT SHOULDER INJURY MRI F [facility] August 08, 2024 9:47am OP SP BILAT KNEE PAIN August 14, 2024 1:16pm Chief Complaint Admit Date [id number] June 25, 2024 11:08am [email or web address] July 04, 2024 2:30pm [email or web address] July 22, 2024 5: 28pm [email or web address] July 26, 2024 2 :30pm [facility] DOI 06/24/24 RT SHOULDER INJURY MRI F [facility] August 08, 2024 9:47am OP SP BILAT KNEE PAIN August 14, 2024 1:16pm OP/SP BILAT KNEE PAIN September 12 8:15am Reason for Visit Admit Date Strain of unspecified muscle , fascia and tendon at shoulder and upper arm l August 08, 2024 9:47am Superior glenoid labrum lesi on of right shoulder, initial encounter August 08, 2024 9:47am Primary osteoarthritis of left knee Geovany jose antonio 2024 1:16pm Primary osteoarthritis of right knee Doroteo uary 2024 1:16pm Primary osteoarthritis of left knee Febr uary 2024 8:15am Primary osteoarthritis of right knee Feb ruary 2024 8:15am Additional Source Comments (unrecognized sect ion and content) No Status Records FoundNo Status Records FoundNo Status Records FoundNo Status Records FoundNo Status Records FoundNo Status Records Found INFORMATION SOURCE (unrecogn ized section and content) DATE CREATED AUTHOR 01/09/2018 [facility] DATE CREATED AUTHOR AUTHOR'S ORGANIZ ATION 06/20/2021 [facility] DATE CREATED AUTHOR AUTHOR'S ORGANIZ ATION 09/13/2022 [facility] DATE CREATED AUTHOR AUTHOR'S ORGANIZ ATION 02/27/2024 [facility] DATE CREATED AUTHOR AUTHOR'S ORGANIZ ATION 08/03/2024 [facility] DATE CREATED AUTHOR AUTHOR'S ORGANIZ ATION 08/28/2024 [facility] EPIC REASON FOR VISIT (unrecogniz ed section and content) Reason Comments Laryngitis Reason Onset Date Comments PT thru C-9 07/05/2024 Reason Onset Date Comments PT [facility] out to 09/17/24 09/05/2024 For 1 PT th at would = 12. FU 09/06/2024 No answer / voic email full. FU x2 09/10/2024 Voicemail full Final 09/13/2024 Tried to contact to offer to schedule his last C-9 PT; same as previous 3 attempts not available. C-9 ending date 09/17/24 09/16/2024 4 attempt s; unable to contact. Care Teams (unrecognized sec tion and content) Miniature Train Driver Relationship Specialty Start Date End Date Spencer Mast MD [address] [facility] [address] [place] [address] PCP - [place] [employer] 10/15/20 Spencer Mast MD [address] [facility] [address] [place] [address] PCP - General Family Medicine 11/22/22 Miniature Train Driver Relationship Specialty Start Date End Date Spencer Mast MD [address] [facility] [address] [place] [address] PCP - [place] [employer] 10/15/20 Spencer Mast MD [address] [facility] [address] [place] [address] PCP - General Family Medicine 11/22/22 Team Status: Active Member Role Status Watson Mast MD Primary Care Provider Active Team Status: Inactive Member Role Status SLIME Oglesby Attending Provider Active S tart: August 02, [...] October 30, 2023 End: October 30, 2023 Lisa Ocampo MD Attending Provider Active Sta rt: October 30, 2023 End: October 30, 2023 Team Status: Inactive Member Role Status Watson Mast MD Primary Care Provider Active S tart: March 06, 2024 End: March 06, 2024 Jagdeep Stiles II, MD Attending Provider Active Start: March 06, 2024 End: March 06, 2024 Team Status: Inactive Member Role Status Watson Mast MD Primary Care Provider Active S tart: March 13, 2024 End: March 13, 2024 Mukesh Rondon MD Attending Provider Active Sta rt: March 13, 2024 End: March 13, 2024 Miniature Train Driver Relationship Specialty Start Date End Date Spencer Mast MD [address] [facility] [address] [place] [address] PCP - General Family Medicine 11/22/22 Zoila Fountain NP [address] [facility] [address] [place] [address] [facility] 03/17/24 Miniature Train Driver Relationship Specialty Start Date End Date Spencer Mast MD [address] [facility] [address] [place] [address] PCP - General Family Medicine 11/22/22 Zoila Fountain, COLLAR TACKER [address] [facility] [address] [place] [address] PCP - [place] [employer] 03/17/24 Miniature Train Driver Relationship Specialty Start Date End Date Spencer Mast MD [address] [facility] [address] [place] [address] PCP - General Family Medicine 11/22/22 Zoila Fountain, COLLAR TACKER [address] [facility] [address] [place] [address] PCP - [place] [employer] 03/17/24 Miniature Train Driver Relationship Specialty Start Date End Date Spencer Mast MD [address] [facility] [address] [place] [address] PCP - General Family Medicine 11/22/22 Zoila Fountain, COLLAR TACKER [address] [facility] [address] [place] [address] PCP - [place] [employer] 03/17/24 Miniature Train Driver Relationship Specialty Start Date End Date Spencer Mast MD [address] [facility] [address] [place] [address] PCP - General Family Medicine 11/22/22 Zoila Fountain, COLLAR TACKER [address] [facility] [address] [place] [address] PCP - [place] [employer] 03/17/24 Miniature Train Driver Relationship Specialty Start Date End Date Spencer Mast MD [address] [facility] [address] [place] [address] PCP - General Family Medicine 11/22/22 Zoila Fountain, COLLAR TACKER [address] [facility] [address] [place] [address] PCP - [place] [employer] 03/17/24 Miniature Train Driver Relationship Specialty Start Date End Date Spencer Mast MD [address] [facility] [address] [place] [address] PCP - General Family Medicine 11/22/22 Zoila Fountain, COLLAR TACKER [address] [facility] [address] [place] [address] PCP - [place] [employer] 03/17/24 Miniature Train Driver Relationship Specialty Start Date End Date Spencer Mast MD [address] [facility] [address] [place] [address] PCP - General Family Medicine 11/22/22 Zoila Fountain, COLLAR TACKER [address] [facility] [address] [place] [address] PCP - [place] [employer] 03/17/24 Miniature Train Driver Relationship Specialty Start Date End Date Spencer Mast MD [address] [facility] [address] [place] [address] PCP - General Family Medicine 11/22/22 Zoila Fountain, COLLAR TACKER [address] [facility] [address] [place] [address] PCP - [place] [employer] 03/17/24 Miniature Train Driver Relationship Specialty Start Date End Date Spencer Mast MD [address] [facility] [address] [place] [address] PCP - General Family Medicine 11/22/22 Zoila Fountain, COLLAR TACKER [address] [facility] [address] [place] [address] PCP - [place] [employer] 03/17/24 Miniature Train Driver Relationship Specialty Start Date End Date Spencer Mast MD [address] [facility] [address] [place] [address] PCP - General Family Medicine 11/22/22 Zoila Fountain, COLLAR TACKER [address] [facility] [address] [place] [address] PCP - [place] [employer] 03/17/24 Team Status: Inactive Member Role Status Dates Spencer Mast MD Primary Care Provider Active S tart: June 25, 2024 End: June 25, 2024 Leidy Bennett APRN Attending Provider Active Start: June 25, 2024 End: June 25, 2024 Team Status: Inactive Member Role Status Dates Spencer Mast MD Primary Care Provider Active S tart: July 04, 2024 End: July 04, 2024 Leidy Bennett APRN Attending Provider Active Start: July 04, 2024 End: July 04, 2024 Team Status: Inactive Member Role Status Dates Spencer Mast MD Primary Care Provider Active S tart: July 22, 2024 End: July 22, 2024 Leidy Bennett APRN Attending Provider Active Start: July 22, 2024 End: July 22, 2024 Miniature Train Driver Relationship Specialty Start Date End Date Spencer Mast MD [address] [facility] [address] [place] [address] PCP - General Family Medicine 11/22/22 Zoila Fountain, IBIS [address] [facility] [address] [place] [address] PCP - [place] [employer] 03/17/24 Team Status: Inactive Member Role Status Dates Spencer Mast MD Primary Care Provider Active S tart: July 26, 2024 End: July 26, 2024 Leidy Bennett APRN Attending Provider Active Start: July 26, 2024 End: July 26, 2024 Miniature Train Driver Relationship Specialty Start Date End Date Spencer Mast MD [address] [facility] [address] [place] [address] PCP - General Family Medicine 11/22/22 Zoila Fountain, COLLAR TACKER [address] [facility] [address] [place] [address] PCP - [place] [employer] 03/17/24 Miniature Train Driver Relationship Specialty Start Date End Date Spencer Mast MD [address] [facility] [address] [place] [address] PCP - General Family Medicine 11/22/22 Zoila Fountain, COLLAR TACKER [address] [facility] [address] [place] [address] PCP - [place] [employer] 03/17/24 Miniature Train Driver Relationship Specialty Start Date End Date Spencer Mast MD [address] [facility] [address] [place] [address] PCP - General Family Medicine 11/22/22 Zoila Fountain, COLLAR TACKER [address] [facility] [address] [place] [address] PCP - [place] [employer] 03/17/24 Miniature Train Driver Relationship Specialty Start Date End Date Spencer Mast MD [address] [facility] [address] [place] [address] PCP - General Family Medicine 11/22/22 Zoila Fountain, COLLAR TACKER [address] [facility] [address] [place] [address] PCP - [place] [employer] 03/17/24 Team Status: Inactive Member Role Status Dates Spencer Mast MD Primary Care Provider Active S tart: August 08, 2024 End: August 08, 2024 Mukesh Salinas MD Attending Provider Active Star t: August 08, 2024 End: August 08, 2024 Miniature Train Driver Relationship Specialty Start Date End Date Spencer Mast MD [address] [facility] [address] [place] [address] PCP - General Family Medicine 11/22/22 Zoila Fountain NP [address] [facility] [address] [place] [address] PCP - [place] [employer] 03/17/24 Miniature Train Driver Relationship Specialty Start Date End Date Spencer Mast MD [address] [facility] [address] [place] [address] PCP - General Family Medicine 11/22/22 Zoila Fountain NP [address] [facility] [address] [place] [address] PCP - [place] [employer] 03/17/24 Team Status: Inactive Member Role Status Dates Spencer Mast MD Primary Care Provider Active S tart: August 14, 2024 End: August 14, 2024 Jagdeep Stiles II, MD Attending Provider Active Start: August 14, 2024 End: August 14, 2024 Team Status: Inactive Member Role Status Dates Spencer Mast MD Primary Care Provider Active S tart: September 12, 2024 End: September 12, 2024 Jagdeep Stiles II, MD Attending Provider Active Start: September 12, 2024 End: September 12, 2024 Goals (unrecognized section and content) Goals may [...] BE BASED ON THE PRIMARY CLINICAL RECORDS. [facility] [employer] [facility]. provides no warranty or guarantee of the accuracy or completeness of information in this document.
[2024-10-05 10:12] LABS: Basophils Absolute Auto 0.1 10^3/uL (0.0-0.1); Basophils Percent Auto 1.1 % (0.2-2.0); Eosinophils Absolute Auto 0.3 10^3/uL (0.0-0.7); Eosinophils Percent Auto 4.4 % (0.9-7.0); Hematocrit 35.5 % (42.0-54.0); Hemoglobin 11.8 g/dL (14.0-18.0); Immature Granulocytes Abs Auto 0.02 10^3/uL (0.00-0.03); Immature Granulocytes Pct Auto 0.4 % (0.0-0.5); Lymphocytes Percent Auto 18.1 % (20.5-60.0); Mean Corpuscular HGB Conc 33.2 g/dL (29.9-35.2); Mean Corpuscular Hemoglobin 30.6 pg (25.9-34.0); Mean Platelet Volume 11.5 fL (9.5-13.5); Monocytes Absolute Auto 0.5 10^3/uL (0.3-0.8); Monocytes Percent Auto 9.5 % (1.7-12.0); Neutrophils Absolute Auto 3.8 10^3/uL (1.4-6.5); Neutrophils Percent Auto 66.5 % (43.0-75.0); Platelet Count 193 10^3/uL (150-450); Red Blood Count 3.86 10^6/uL (4.70-6.10); Red Cell Distribution Width 13.7 % (11.0-15.0); White Blood Count 5.7 10^3/uL (4.0-11.0)
[2024-10-05 10:38] LABS: Alanine Aminotransferase 40 U/L (16-63); Albumin Globulin Ratio 1.2; Albumin Level 3.4 g/dL (3.4-5.0); Alkaline Phosphatase 88 U/L (46-116); Aspartate Amino Transferase 12 U/L (15-37); BUN Creatinine Ratio 15.7; Bilirubin Total 0.4 mg/dL (0.2-1.0); Calcium 8.5 mg/dL (8.5-10.1); Carbon Dioxide 27.4 mmol/L (21.0-32.0); Chloride 108 mmol/L (98-107); Chol HDL Ratio 4.1; Cholesterol 176 mg/dL (<=200); Estimated GFR (African America 52 (>=60 mL/min/1.73m^2); Estimated GFR (Non-African Ame 43 (>=60 mL/min/1.73m^2); Globulin 2.8 g/dL; Glucose 167 mg/dL (74-106); HDL Cholesterol 43 mg/dL (40-60); LDL Cholesterol Calculated 112.6 mg/dL; Potassium 4.4 mmol/L (3.5-5.1); Sodium 141 mmol/L (136-145); Total Protein 6.2 g/dL (6.4-8.2); Triglycerides 102 mg/dL (<=150); VLDL CHOLESTEROL 20.4 mg/dL
== END 2024-10-05 09:52 | disposition home or self-care (01) ==
LOC: LAB 09:55
PROVIDERS: PCP Family Medicine
DX: I25.10 Atherosclerotic heart disease of native coronary artery without angina pectoris (principal)
CPT/HCPCS: 36415; 80053; 80061; 83880; 85025

== ENCOUNTER 2024-10-11 09:27 | Outpatient (OUT) | payer MEDICARE, SELFPAY ==
[2024-10-11 10:17] LABS: Anion Gap 14.2; BUN Creatinine Ratio 20.5; Calcium 8.5 mg/dL (8.5-10.1); Carbon Dioxide 26.7 mmol/L (21.0-32.0); Chloride 107 mmol/L (98-107); Estimated GFR (African America 50 (>=60 mL/min/1.73m^2); Estimated GFR (Non-African Ame 41 (>=60 mL/min/1.73m^2); Glucose 188 mg/dL (74-106); Potassium 3.9 mmol/L (3.5-5.1); Sodium 144 mmol/L (136-145)
== END 2024-10-11 09:28 | disposition home or self-care (01) ==
LOC: LAB 09:29
PROVIDERS: PCP Family Medicine
DX: R60.0 Localized edema (principal); I25.10 Atherosclerotic heart disease of native coronary artery without angina pectoris; R06.00 Dyspnea, unspecified
CPT/HCPCS: 36415; 80048; 83880

== ENCOUNTER 2024-11-07 07:15 | Outpatient (OUT) | payer MEDICARE, SELFPAY ==
--- NOTE | 2024-11-07 07:30 | CA_ITS ---
Patient Name: LISA JURADO MR#: [id number] : 1955 Exam Date: 11/07/2024 Ordering Doctor: PHUC ROCHE ECHOCARDIOGRAM REPORT PROCEDURE: CA ECHO DOPPLER COMPLETE INDICATIONS: Dyspnea on exertion, CABGx6, hypertension, diabetes COMPARISON: None. DESCRIPTION: COMPLETE ECHOCARDIOGRAM Real-time transthoracic echocardiography with 2D, M-mode, spectral and color flow Doppler performed. QUALITY: Technical quality was good. LEFT VENTRICLE: Normal chamber size. Moderate concentric left ventricular hypertrophy. Normal systolic function. LV EF: Normal left ventricular ejection fraction, (>55%). DIASTOLIC: Not adequately assessed due to heart rhythm. ATRIAL SEPTUM: Visually appears intact. LEFT ATRIUM: Moderate dilatation. RIGHT ATRIUM: Moderate dilatation. RIGHT VENTRICLE: Normal chamber size. Normal right ventricular systolic function. TRICUSPID VALVE: Normal mobility and thickness. No stenosis with mild regurgitation. Doppler studies reveal moderately (45-60) elevated right sided pressures. RVSP 59 mmHg MITRAL VALVE: Normal mobility and thickness. No evidence of mitral valve stenosis. There is no mitral annular calcification. Moderate mitral regurgitation with an eccentric jet. AORTIC VALVE: Normal trileaflet appearance. Mildly calcified aortic valve. Mildly diminished mobility. Doppler velocity suggest no significant aortic valve stenosis. No aortic regurgitation. AORTIC ROOT: Normal diameter and appearance. Ascending aorta is normal in size. PULMONIC VALVE: Normal thickness and mobility. No stenosis. Trivial regurgitation. PERICARDIUM: No evidence of pericardial effusion. IVC: IVC is dilated (2.8 cm), does not fully collapse. PLEURA: CONCLUSION: 1. Moderate concentric left ventricular hypertrophy with normal systolic function. LVEF is estimated at 55 to 60%. 2. Normal right ventricular size and systolic function. 3. Moderate biatrial dilatation. 4. At least moderate mitral regurgitation with an eccentrically directed regurgitation jet. 5. Mild tricuspid valve regurgitation. 6. Moderate elevation of right-sided pressures. RVSP is 59 mmHg. 7. The patient appears to be in atrial fibrillation with rapid ventricular response during the exam. 8. A transesophageal echocardiogram is recommended for better assessment of the mitral regurgitation severity. Adult Echocardiography Procedure Report Left Ventricle LVEDD (3.7 - 5.6 cm): 4.92 cm LVESD (2.2 - 4.0 cm): 3.78 cm LVIVS thickness (0.6 - 1.2 cm): 1.57 cm LVPW thickness (0.5 - 1.0 cm): 1.62 cm LVOT Max Gradient: 1.02 mm[Hg], 0.60 mm[Hg] LVOT Area (cm2): 0.45 m/s Peak Velocity (LVOT): 0.51 m/s, 0.39 m/s Mean Velocity (LVOT): 0.31 m/s LVOT Diameter 2.62 cm Left Atrium LA Volume Index (2D A2C): 45.92 ml/m2 Left Atrium Systolic Dimension: 4.96 cm Mitral Valve Mitral Valve E-Wave Peak Velocity: 0.81 m/s Right Ventricle Aorta AO Root Diam: 3.94 cm Ascending Ao Diam: 3.44 cm Aortic Valve AoV Area (Peak Josh): 2.27 cm2, 2.52 cm2, 2.70 cm2 AoV Area (VTI): 1.84 cm2, 2.13 cm2, 2.46 cm2 Peak Velocity(Antegrade Flow): 1.08 m/s, 0.78 m/s, 1.33 m/s Peak Gradient(Antegrade Flow): 4.69 mm[Hg], 2.41 mm[Hg], 7.12 mm[Hg] Mean Velocity(Antegrade Flow): 0.69 m/s, 0.50 m/s, 0.95 m/s Mean Gradient(Antegrade Flow): 2.24 mm[Hg], 1.13 mm[Hg], 4.10 mm[Hg] Velocity Time Integral: 18.04 cm, 12.07 cm, 25.57 cm Tricuspid Valve Peak Velocity (Regurgitant Flow): 3.24 m/s, 3.40 m/s Pulmonic Valve Peak Velocity: 0.51 m/s Peak Gradient: 1.04 mm[Hg] Right Atrium Right Atrium Systolic Pressure: 85.51 ml, 85.51 ml Dictated by: Jose Menjivar M.D. on 11/08/2024 at 09:34 Approved by: Jose Menjivar M.D. on 11/08/2024 at 09:40
== END 2024-11-07 07:16 | disposition home or self-care (01) ==
LOC: CARD 07:15
PROVIDERS: PCP Family Medicine
DX: R06.09 Other forms of dyspnea (principal)
CPT/HCPCS: 93306

== ENCOUNTER 2024-11-22 12:40 | Outpatient (OUT) | payer MEDICARE, SELFPAY ==
[2024-11-22 13:54] LABS: Anion Gap 11.3; BUN Creatinine Ratio 14.1; Calcium 8.5 mg/dL (8.5-10.1); Carbon Dioxide 27.8 mmol/L (21.0-32.0); Chloride 105 mmol/L (98-107); Estimated GFR (African America 44 (>=60 mL/min/1.73m^2); Estimated GFR (Non-African Ame 36 (>=60 mL/min/1.73m^2); Glucose 181 mg/dL (74-106); Potassium 4.1 mmol/L (3.5-5.1); Sodium 140 mmol/L (136-145)
== END 2024-11-22 12:41 | disposition home or self-care (01) ==
LOC: LAB 12:41
PROVIDERS: PCP Family Medicine
DX: I50.31 Acute diastolic (congestive) heart failure (principal)
CPT/HCPCS: 36415; 80048; 83880

== ENCOUNTER 2025-02-07 06:35 | Outpatient (OUT) | payer MEDICARE, SELFPAY ==
--- OUTSIDE RECORDS SUMMARY | 2025-02-06 11:39 | XMS_ITS | Encounter Summary ---
Author Organization [facility] Address [address] [place] [address] [place] [address] Care Team Providers Care Granite Installer Name Role Phone Surya Hinton MD Unavailable Surya Hinton MD Primary Care Provider [phone] Zoila Fountain NP Unavailable [phone] Encounter Details Date Type Department Care Team (Late Contact Info) Description 11/21/2023 Abstract [facility] [address] [facility] [address] [place] [phone] Surya Hinton MD [address] [facility] [address] [place] [address] Social History Tobacco Use Types Packs/Day Years Used Date Smoking Tobacco: Never Smokeless Tobacco: Never Alcohol Use Standard Drinks/Week Comments Never 0 (1 standard drink = 0.6 oz pur e alcohol) Sex and Gender Information Value Date Recorded Sex Assigned at Not on file Legal Sex Male 6:36 PM EDT Gender Identity Not on file Sexual Orientation Not on file documented as of this encounter Plan of Treatment Upcoming Encounters Date Type Department Care Team (Late st Contact Info) Description 02/26/2025 11:30 AM EDT Office Visit [facility] [address] [facility] [address] [place] [phone] Zoila Fountain NP [address] [facility] [address] [place] [address] documented as of this encounter Visit Diagnoses Not on filedocumented in this encounter Care Teams Granite Installer Relationship Specialty Start Date End Date Surya Hinton MD [address] [facility] [address] [place] [address] PCP - [place] [employer] 10/15/20 Surya Hinton MD [address] [facility] [address] [place] [address] PCP - General Family Medicine 11/22/22 Zoila Fountain, BOOKMOBILE DRIVER [address] [facility] [address] [place] [address] PCP - [place] [employer] 03/17/24 documented as of this encounter
--- OUTSIDE RECORDS SUMMARY | 2025-02-06 11:39 | XMS_ITS | Encounter Summary ---
Author Organization [facility] Address [address] [facility] [place] [address] Care Team Providers Care Liability Claims Adjuster Name Role Phone Surya Hinton MD Primary Care Provider [phone] Zoila Fountain POULTRY HUSBANDRY TEACHER Unavailable [phone] Encounter Details Date Type Department Care Team ([facility] Contact Info) Description 08/20/2024 Abstract [facility] [address] [facility] [address] [place] [phone] Surya Hinton MD [address] [facility] [address] [place] [address] Social History Tobacco Use Types Packs/Day Years [...] Encounters Date Type Department Care Team (Late Contact Info) Description 02/26/2025 11:30 AM EDT Office Visit [facility] [address] [facility] [address] [place] [phone] Zoila Fountain NP [address] [facility] [address] [place] [address] documented as of this encounter Visit Diagnoses Not on filedocumented in this encounter Care Teams Liability Claims Adjuster Relationship Specialty Start Date End Date Surya Hinton MD [address] [facility] [address] [place] [address] PCP - General Family Medicine 11/22/22 Zoila Fountain NP 112 [facility] 110 [place] [address] PCP - [place] [employer] 03/17/24 documented as of this encounter
--- OUTSIDE RECORDS SUMMARY | 2025-02-06 11:39 | XMS_ITS | Clinical Summary ---
Author Organization [facility] Address [address] [place] [address] Phone Care Team Providers Care Centrifugal Chiller Technician Name Role Phone Surya Hinton MD Primary Care Provider [phone] Social History Tobacco Use Types Packs/Day Years Used Date Smoking Tobacco: Never Assessed Sex and Gender Information Value Date Recorded Sex Assigned at Not on file Legal Sex Male 7:06 AM EST Gender Identity Not on file Sexual Orientation Not on file Last Filed Vital Signs Vital Sign Reading Time Taken Comments Blood Pressure 122/80 06/18/2021 1:30 PM EST Pulse 78 06/18/2021 1:28 PM EST Temperature - - Respiratory Rate - - Oxygen Saturation - - Inhaled Oxygen Concentration - - Weight 110 kg (242 lb) 06/18/2021 1:28 PM EST Height 177.8 cm (5' 10 ) 06/18/2021 1:28 PM EST Body Mass Index 34.72 06/18/2021 1:28 PM EST Plan of Treatment Not on file Care Teams Centrifugal Chiller Technician Relationship Specialty Start Date End Date Surya Hinton MD [address] [place] [address] PCP - General 05/28/21
--- OUTSIDE RECORDS SUMMARY | 2025-02-06 11:39 | XMS_ITS | Encounter Summary ---
Author Organization [facility] Address [address] [facility] [place] [address] Care Team Providers Care Boot Repairer Name Role Phone Surya Hinton MD Primary Care Provider [phone] Zoila Fountain UTILITY MAINTENANCE WORKER Unavailable [phone] Encounter Details Date Type Department Care Team ([facility] Contact Info) Description 08/14/2024 Abstract [facility] [address] [facility] 110 [place] [phone] Surya Hinton MD [address] [facility] 110 [place] [address] Social History Tobacco Use Types Packs/Day Years [...] Upcoming Encounters Date Type Department Care Team ([facility] Contact Info) Description 02/26/2025 11:30 AM EDT Office Visit [facility] [address] [facility] 110 [place] [phone] Zoila Fountain NP [address] [facility] 110 [place] [address] documented as of this encounter Visit Diagnoses Not on filedocumented in this encounter Care Teams Boot Repairer Relationship Specialty Start Date End Date Surya Hinton MD [address] [facility] 110 [place] [address] PCP - General Family Medicine 11/22/22 Zoila Fountain NP 112 [facility] 110 [place] [address] PCP - [place] [employer] 03/17/24 documented as of this encounter
--- OUTSIDE RECORDS SUMMARY | 2025-02-06 11:39 | XMS_ITS | Encounter Summary ---
Author Organization [facility] Address [address] [facility] [place] [address] Care Team Providers Care Silverer Name Role Phone Surya iHnton MD Unavailable Surya Hinton MD Primary Care Provider [phone] Zoila Fountain NP Unavailable [phone] Encounter Details Date Type Department Care Team (Late Contact Info) Description 11/28/2023 Abstract [facility] [address] [facility] 110 [place] [phone] Surya Hinton MD 112 [facility] 110 [place] [address] Social History Tobacco Use Types Packs/Day Years [...] Office Visit [facility] [address] [facility] 110 [place] [phone] Zoila Fountain NP [address] [facility] 110 [place] [address] documented as of this encounter Visit Diagnoses Not on filedocumented in this encounter Care Teams Silverer Relationship Specialty Start Date End Date Surya Hinton MD [address] [facility] 110 [place] [address] PCP - [place] [employer] 10/15/20 Surya Hinton MD [address] [facility] 110 [place] [address] PCP - General Family Medicine 11/22/22 Zoila Fountain, PATIENT ADVOCATE [address] [facility] 110 [place] [address] PCP - [place] [employer] 03/17/24 documented as of this encounter
--- OUTSIDE RECORDS SUMMARY | 2025-02-06 11:39 | XMS_ITS | Encounter Summary ---
Author Organization [facility] Address [address] [facility] [place] [address] Care Team Providers Care Driver Messenger Name Role Phone Surya Hinton MD Primary Care Provider [phone] Encounter Details Date Type Department Care Team ([facility] Contact Info) Description 11/07/2024 Abstract [facility] 112 [facility] 110 [place] [address] Surya Hinton MD [address] [place] [facility] 110 [place] [address] Social History Tobacco Use Types Packs/Day Years [...] Upcoming Encounters Date Type Department Care Team ([facility] Contact Info) Description 02/26/2025 11:30 AM EDT Office Visit [facility] [address] [facility] 110 [place] [address] Zoila Fountain NP [address] [place] [facility] 110 [place] [address] documented as of this encounter Visit Diagnoses Not on filedocumented in this encounter Care Teams Driver Messenger Relationship Specialty Start Date End Date Surya Hinton MD [address] [place] [facility] 110 [place] [address] PCP - General Family Medicine 11/22/22 documented as of this encounter
--- OUTSIDE RECORDS SUMMARY | 2025-02-06 11:39 | XMS_ITS | Encounter Summary ---
Author Organization [facility] Address [address] [facility] [place] [address] Care Team Providers Care Clay Mixer Name Role Phone Surya Mast MD Unavailable Surya Mast MD Primary Care Provider [phone] Zoila Fountain NP Unavailable [phone] Encounter Details Date Type Department Care Team (Late Contact Info) Description 06/01/2023 Clinisync Result Encounter [facility] External Department Unsolicited Provider, Generic External Data Social History Tobacco Use Types Packs/Day Years [...] Upcoming Encounters Date Type Department Care Team ([facility] Contact Info) Description 02/26/2025 11:30 AM EDT Office Visit [facility] [address] [facility] 110 [place] [address] Zoila Fountain INJECTION MAINTENANCE TECHNICIAN [address] [facility] 110 [place], [place] [phone] documented as of this encounter Procedures Procedure Name Priority Date/Time Associated Diagnosis Comments VASC US CAROTID ARTERY DUPLEX BILATERAL 06/01/2023 3:24 PM EST documented in this encounter Results * Vascular US carotid artery duplex bilateral (06/01/2023 3:24 PM EST) Anatomical Region Laterality Modality Neck Ultrasound 06/01/2023 3:24 PM EST Narrative 06/01/2023 3:24 [place] [address] Ultrasound Report Signed Patient: LISA JURADO MR#: [id number] : 1955 Acct:[id number] Age/Sex: 68 / M ADM Date: 06/01/23 Loc: CARD Attending Dr: EDISON HOPPER APRN Ordering Physician: EDISON HOPPER APRN Date of Service: 06/01/23 Procedure(s): US carotid duplex BI Accession Number(s): [id number] cc: SURYA MAST ; EDISON HOPPER APRN [place] [address] Patient Name: LISA JURADO MRN: [id number] date: 1955 Sex: M Assigned Patient Location: CARD Current Patient Location: CARD Accession/Order Number: [id number] Exam Date: 06/01/2023 10:00 Report Date: 06/01/2023 15:24 At the request of: EDISON HOPPER Procedure: US carotid duplex BI EXAMINATION: US carotid duplex BI HISTORY: Stenosis Of Left Carotid Artery I65.22 COMPARISON: No relevant comparison available. TECHNIQUE: Duplex Doppler ultrasound analysis of carotid and vertebral arteries. . Bilateral carotid arterial duplex examination was performed using B-mode, color flow and spectral analysis. Carotid stenosis is reported according to validated velocity parameters, similar to NASCET criteria. FINDINGS: RIGHT CAROTID ARTERY Mild atherosclerotic plaque. 44% reduction in the bulb Subclavian: PSV: 55.6 cm/s cm/s EDV: 7.0 cm/s cm/s CCA: Prox: PSV: 57.8 cm/s cm/s EDV: 10.6 cm/s cm/s Mid: PSV: 66.6 cm/s cm/s EDV: 13.8 cm/s cm/s Distal: PSV: 47.6 cm/s cm/s EDV: 8.4 cm/s cm/s BULB: PSV: 39.8 cm/s cm/s EDV: 7.5 cm/s cm/s ICA: Prox: PSV: 128.6 cm/s cm/s EDV: 39.7 cm/s cm/s Mid: PSV: 102.7 cm/s cm/s EDV: 28.4 cm/s cm/s Distal: PSV: 46.8 cm/s cm/s EDV: 18.8 cm/s cm/s ECA: PSV: 102.7 cm/s cm/s EDV: 5.8 cm/s cm/s VERTEBRAL: PSV: 31.0 cm/s cm/s EDV: 13.2 cm/s cm/s ICA/CCA ratio: PSV: 2.7 EDV: 4.7 LEFT CAROTID ARTERY Mild atherosclerotic plaque. 60% area reduction in the proximal ICA Subclavian: PSV: 94.3 cm/s cm/s EDV: 7.9 cm/s CCA: Prox: PSV: 62.0 cm/s cm/s EDV: 10.2 cm/s Mid: PSV: 49.0 cm/s cm/s EDV: 15.4 cm/s Distal: PSV: 36.0 cm/s cm/s EDV: 6.8 cm/s BULB: PSV: 38.9 cm/s cm/s EDV: 11.1 cm/s ICA: Prox: PSV: 123.7 cm/s cm/s EDV: 41.3 cm/s Mid: PSV: 68.1 cm/s cm/s EDV: 16.3 cm/s Distal: PSV: 40.2 cm/s cm/s EDV: 14.9 cm/s ECA: PSV: 60.0 cm/s cm/s EDV: 6.2 cm/s VERTEBRAL: PSV: 39.1 cm/s cm/s EDV: 12.8 cm/s ICA/CCA ratio: PSV: 3.4 EDV: 6.1 US/US carotid duplex BI IMPRESSION: 0-49% flow stenosis right internal carotid artery 60% area reduction measured in the proximal left ICA Spectral Doppler US Thresholds (Reference: [place] EG, et al. Radiology 2000; 214:247-252) Stenosis (%) PSV (cm/sec) VICA/VCCA 0-49 <150 <2.5 50-69 150-225 2.5-4.0 >70 >225 >4.0 Electronically authenticated by: IFEANYI FREY Date: 06/01/2023 15:24 Dictated By: Ifeanyi Frey M.D. Signed By: 06/01/23 1526 DD/ 152 TD/TT: Loom Technician: Procedure Note Radiology, Radiologist, MD - 06/01/2023 [place] [address] Ultrasound Report Signed Patient: LISA JURADO LMR#: [id number] : 1955cct:[id number] Age/Sex: 68 / MADM Date: 06/01/23 Loc: CARD Attending Dr: EDISON HOPPER APRN Ordering Physician: EDISON HOPPER APRN Date of Service: 06/01/23 Procedure(s): US carotid duplex BI Accession Number(s): [id number] cc: SURYA MAST ; EDISON HOPPER APRN [place] [address] Patient Name: LISA JURADO MRN: [facility]:[id number] date: 1955 Sex: M Assigned Patient Location: CARD Current Patient Location: CARD Accession/Order Number: [id number] Exam Date: 06/01/2023 10:00 Report Date: 06/01/2023 15:24 At the request of: EDISON HOPPER Procedure: US carotid duplex BI EXAMINATION: US carotid duplex BI HISTORY: Stenosis Of Left Carotid Artery I65.22 COMPARISON: No relevant comparison available. TECHNIQUE: Duplex Doppler ultrasound analysis of carotid and vertebral arteries. . Bilateral carotid arterial duplex examination was performedusing B-mode, color flow and spectral analysis. Carotid stenosis is reported according to validated velocity parameters, similar to NASCET criteria. FINDINGS: RIGHT CAROTID ARTERY Mild atherosclerotic plaque. 44% reduction in the bulb Subclavian: PSV: 55.6 cm/s cm/s EDV: 7.0 cm/s cm/s CCA: Prox: PSV: 57.8 cm/s cm/s EDV: 10.6 cm/s cm/s Mid: PSV: 66.6 cm/s cm/s EDV: 13.8 cm/s cm/s Distal: PSV: 47.6 cm/s cm/s EDV: 8.4 cm/s cm/s BULB: PSV: 39.8 cm/s cm/s EDV: 7.5 cm/s cm/s ICA: Prox: PSV: 128.6 cm/s cm/s EDV: 39.7 cm/s cm/s Mid: PSV: 102.7 cm/s cm/s EDV: 28.4 cm/s cm/s Distal: PSV: 46.8 cm/s cm/s EDV: 18.8 cm/s cm/s ECA: PSV: 102.7 cm/s cm/s EDV: 5.8 cm/s cm/s VERTEBRAL: PSV: 31.0 cm/s cm/s EDV: 13.2 cm/s cm/s ICA/CCA ratio: PSV: 2.7 EDV: 4.7 LEFT CAROTID ARTERY Mild atherosclerotic plaque. 60% area reduction in the proximal ICA Subclavian: PSV: 94.3 cm/s cm/s EDV: 7.9 cm/s CCA: Prox: PSV: 62.0 cm/s cm/s EDV: 10.2 cm/s Mid: PSV: 49.0 cm/s cm/s EDV: 15.4 cm/s Distal: PSV: 36.0 cm/s cm/s EDV: 6.8 cm/s BULB: PSV: 38.9 cm/s cm/s EDV: 11.1 cm/s ICA: Prox: PSV: 123.7 cm/s cm/s EDV: 41.3 cm/s Mid: PSV: 68.1 cm/s cm/s EDV: 16.3 cm/s Distal: PSV: 40.2 cm/s cm/s EDV: 14.9 cm/s ECA: PSV: 60.0 cm/s cm/s EDV: 6.2 cm/s VERTEBRAL: PSV: 39.1 cm/s cm/s EDV: 12.8 cm/s ICA/CCA ratio: PSV: 3.4 EDV: 6.1 US/US carotid duplex BI IMPRESSION: 0-49% flow stenosis right internal carotid artery 60% area reduction measured in the proximal left ICA Spectral Doppler US Thresholds (Reference: [place] EG, et al. [id number]; 214:247-252) Stenosis (%) PSV (cm/sec) VICA/VCCA 0-49 <150 <2.5 50-69 150-225 2.5-4.0 >70 >225 >4.0 Electronically authenticated by: IFEANYI FREY Date: 06/01/2023 15:24 Dictated By: Ifeanyi Frey M.D. Signed By:06/01/23 1526 DD/ 1524 TD/TT: Loom Technician: us Generic External Data Provider IMG US PROCEDURES Final Result documented in this encounter Visit Diagnoses Not on filedocumented in this encounter Care Teams Clay Mixer Relationship Specialty Start Date End Date Surya Mast MD [address] [address] PCP - [place] [employer] 10/15/20 Surya Mast MD [address] [address] PCP - General Family Medicine 11/22/22 Zoila Fountain NP [address] [address] PCP - [place] [employer] 03/17/24 documented as of this encounter
--- OUTSIDE RECORDS SUMMARY | 2025-02-06 11:39 | XMS_ITS | Encounter Summary ---
Author Organization [facility] Address [address] [facility] [place] [address] Care Team Providers Care Camera Mechanic Name Role Phone Surya Hinton MD Unavailable Surya Hinton MD Primary Care Provider [phone] Zoila Fountain NP Unavailable [phone] Encounter Details Date Type Department Care Team (Late Contact Info) Description 11/23/2023 Abstract [facility] [address] [facility] 110 [place] [phone] Surya Hinton MD 112 [facility] 110 [place] [address] Social History Tobacco Use Types Packs/Day Years [...] Office Visit [facility] [address] [facility] 110 [place] [address] Zoila Fountain NP [address] [place] [facility] 110 [place] [address] documented as of this encounter Visit Diagnoses Not on filedocumented in this encounter Care Teams Camera Mechanic Relationship Specialty Start Date End Date Surya Hinton MD [address] [facility] 110 [place] [address] PCP - [place] [employer] 10/15/20 Surya Hinton MD [address] [place] [facility] 110 [place] [address] PCP - General Family Medicine 11/22/22 Zoila Fountain, MASON APPRENTICE [address] [facility] 110 [place] [address] PCP - [place] [employer] 03/17/24 documented as of this encounter
--- OUTSIDE RECORDS SUMMARY | 2025-02-06 11:39 | XMS_ITS | Encounter Summary ---
Author Organization [facility] Address [address] [facility] [place] [address] Care Team Providers Care Research Hydraulic Engineer Name Role Phone Surya Hinton MD Unavailable Surya Hinton MD Primary Care Provider [phone] Zoila Fountain NP Unavailable [phone] Encounter Details Date Type Department Care Team (Late Contact Info) Description 07/05/2023 Abstract [facility] [address] [facility] 110 [place] [address] Surya Hinton MD [address] [facility] 110 [place] [address] Social History Tobacco Use Types Packs/Day Years [...] [facility] [address] [facility] 110 [place] [address] Zoila Fountain NP [address] [place] [facility] 110 [place] [address] documented as of this encounter Visit Diagnoses Not on filedocumented in this encounter Care Teams Research Hydraulic Engineer Relationship Specialty Start Date End Date Surya Hinton MD [address] [facility] 110 [place] [address] PCP - [place] [employer] 10/15/20 Surya Hinton MD [address] [place] [facility] 110 [place] [address] PCP - General Family Medicine 11/22/22 Zoila Fountain, CHAR BELT OPERATOR [address] [facility] 110 [place] [address] PCP - [place] [employer] 03/17/24 documented as of this encounter
--- OUTSIDE RECORDS SUMMARY | 2025-02-06 11:39 | XMS_ITS | Encounter Summary ---
Author Organization [facility] Address [address] [facility] [place] [address] Care Team Providers Care Washer Machine Name Role Phone Surya Hinton MD Unavailable Surya Hinton MD Primary Care Provider [phone] Zoila Fountain NP Unavailable [phone] Encounter Details Date Type Department Care Team (Late Contact Info) Description 11/06/2023 Abstract [facility] [address] [facility] 110 [place] [address] Surya Hinton MD 112 [facility] 110 [place] [address] Social History Tobacco Use Types Packs/Day Years [...] Office Visit [facility] [address] [facility] 110 [place] [address] Zoila Fountain NP [address] [place] [facility] 110 [place] [address] documented as of this encounter Visit Diagnoses Not on filedocumented in this encounter Care Teams Washer Machine Relationship Specialty Start Date End Date Surya Hinton MD [address] [facility] 110 [place] [address] PCP - [place] [employer] 10/15/20 Surya Hitnon MD [address] [facility] 110 [place] [address] PCP - General Family Medicine 11/22/22 Zoila Fountain, HOSPICE RN [address] [facility] 110 [place] [address] PCP - [place] [employer] 03/17/24 documented as of this encounter
--- OUTSIDE RECORDS SUMMARY | 2025-02-06 11:39 | XMS_ITS | Clinical Summary ---
Author Organization [facility] Address [address] [place] [address] Care Team Providers Care Drug Abuse Counselor Name Role Phone Surya Mast MD Primary Care Provider [phone] Allergies No known active allergies Medications ASPIRIN 81 MG chewable tablet Oral Acti ve atorvastatin (Lipitor) 80 MG tabletIndications:A therosclerosis of absentee-shawnee coronary artery with angina pectoris, unspecified whether absentee-shawnee or transplanted heart Take 1 tablet (80 mg) by mouth in the morning. 100 tablet 3 4 Active carvedilol (Coreg) 25 MG tabletIndications:P rimary hypertension Take 1 tablet (25 mg) by mouth in the morning and 1 tablet (25 mg) before bedtime. 180 tablet 3 4 Active dapagliflozin (Farxiga) 10 MGIndications:Coron jose antonio artery disease without angina pectoris, unspecified vessel or lesion type, unspecified whether absentee-shawnee or transplanted heart Take 1 tablet (10 mg) by mouth Daily 100 tablet 3 4 Active lisinopril 40 MG tabletIndications:P rimary hypertension Take 1 tablet (40 mg) by mouth Daily 90 tablet 3 4 Active semaglutide (Rybelsus) 7 MG tabletIndications:T ype 2 diabetes mellitus with microalbuminuria, without long-term current use of insulin (HCC) Take 1 tablet (7 mg) by mouth in the morning. Take before meals. 90 tablet 3 4 Active EQ Arthritis Pain Reliever 1 % gelIndications:Oste oarthritis of multiple joints, unspecified osteoarthritis type USE DIRECTED 350 g 4 Active isosorbide mononitrate ER (Imdur) 120 MG 24 hr tabletIndications:A rteriosclerosis of autologous coronary artery bypass graft Take 1 tablet (120 mg) by mouth Daily Do not crush or chew. 30 tablet 11 4 Active cloNIDine (Catapres) 0.2 MG tabletIndications:H ypertension secondary to other renal disorders TAKE ONE AND ONE-HALF TABLETS BY MOUTH TWICE DAILY (MORNING AND BEFORE BEDTIME) 270 tablet 4 Active chlorthalidone (Hygroton) 25 MG tablet Take 25 mg by mouth Daily 4 Active traZODone (Desyrel) 100 MG tabletIndications:P rimary insomnia Take 1 tablet (100 mg) by mouth at bedtime 30 tablet 11 4 02/13/20 25 Active terazosin (Hytrin) 2 MG capsuleIndications: Benign prostatic hyperplasia without lower urinary tract symptoms Take 3 capsules (6 mg) by mouth at bedtime 270 capsule 3 5 08/11/19 26 Active apixaban (Eliquis) 5 MG tablet Take 5 mg by mouth in the morning and 5 mg in the evening. 5 Active ezetimibe (Zetia) 10 MG tablet Take 10 mg by mouth in the morning. 5 11/14/19 26 Active furosemide (Lasix) 40 MG tablet Take 40 mg by mouth in the morning. 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 We made recommendations on how to control your blood pressure, and minimize your risk of these copmplications. We also discussed your current barriers to a healthy living and importance of healthy diet and exercise. Prior to your visit today we have reviewed your chart and formed a plan to assist with providing you the best possible care. We reviewed the possible complications of hypertension including, stroke, heart failure and kidney impairment. In addition, we discussed your medications, the importance of taking them as prescribed. DASH diet handouts Assessment & Plan (08/07/2023 3:22 PM EST): Our specific goals, for your hypertension, is to keep your blood pressure less than 140/90, and the importance of weight control. We made recommendations on how to control your blood pressure, and minimize your risk of these copmplications. We also discussed your current barriers to a healthy living and importance of healthy diet and exercise. Prior to your visit today we have reviewed your chart and formed a plan to assist with providing you the best possible care. We reviewed the possible complications of hypertension including, stroke, heart failure and kidney impairment. In addition, we discussed your medications, the importance of taking them as prescribed. 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 Reviewed poissble complications of diabetes including, loss of vision, kidney failure and increased risk of heart attacks and stroke. We made recommendations on how to control your blood sugars, and minimize your risk of these complications. We discussed your current barriers to a healthy living and importance of healthy diet and exercise. Hypertension secondary to other renal disorders 09/14/2022 Sequelae of other specified infectious and parasitic diseases 07/20/2021 Bilateral primary osteoarthritis of knee 016 Gastro-esophageal reflux disease without esophag itis 06/08/2016 Hyperlipidemia, unspecified 06/08/2016 Muscle weakness (generalized) 06/08/2016 Non-ST elevation (NSTEMI) myocardial infarction 06/08/2016 Encounters Date Type Department Care Team Description 12/25/2024 Abstract [facility] [address] [facility] [address] [place] [address] Surya Mast MD 12/18/2024 Clinisync Result Encounter [facility] Unsolicited Provider, Generic External Data 12/13/2024 Clinisync Result Encounter [facility] Department Unsolicited Provider, Generic External Data 12/02/2024 Abstract [facility] [address] [facility] [address] [place] [address] Surya Mast MD 11/26/2024 9:00 AM EDT Office Visit [facility] [address] [facility] [address] [place] [address] Zoila Fountain NP Insomnia, unspecified type (Primary Dx); Type 2 diabetes mellitus with hyperglycemia, unspecified whether rn long term care insulin use (HCC); Flatulence 11/26/2024 Bamboo flowsheet [facility] [address] [facility] [address] [place] [address] Zoila Fountain NP 11/26/2024 Travel 11/22/2024 Clinisync Result Encounter [facility] External Department Unsolicited Provider, Generic External Data 11/08/2024 Clinisync Result Encounter [facility] External Department Unsolicited Provider, Generic External Data 11/07/2024 Abstract [facility] [address] [facility] [address] [place] [address] Surya Mast MD from Last 3 Months Family History Medical History Relation Name Comments Hypertension Brother Hypertension Father Cancer Maternal Grandmother Hypertension Mother Cancer Sibling Diabetes Sibling Hypertension Sibling Stroke Sibling Relation Name Status Comments Brother Father Maternal Grandmother Mother Sibling Alive Social History Tobacco Use Types Packs/Day Years Used Date Smoking Tobacco: Never Smokeless Tobacco: Never Tobacco Cessation:Counseling Given: Yes Alcohol Use Standard Drinks/Week Comments Never 0 (1 standard drink = 0.6 oz pur e alcohol) PHQ-2 Answer Date Recorded Patient Health Questionnaire-2 Score 0 11/26/2024 Sex and Gender Information Value Date Recorded Sex Assigned at Not on file Legal Sex Male 6:36 PM EDT Gender Identity Not on file Sexual Orientation Not on file Last Filed Vital Signs Vital Sign Reading Time Taken Comments Blood Pressure 168/92 11/26/2024 9:04 AM EDT Pulse 46 11/26/2024 9:04 AM EDT Temperature - - Respiratory Rate 17 11/26/2024 9:04 AM EDT Oxygen Saturation 99% 11/26/2024 9:04 AM EDT Inhaled Oxygen Concentration - - Weight 117 kg (257 lb) 11/26/2024 9:04 AM EDT Height 175.3 cm (5' 9 ) 11/26/2024 9:04 AM EDT Body Mass Index 37.95 11/26/2024 9:04 AM EDT Plan of Treatment Upcoming Encounters Date Type Department Care Team (Late st Contact Info) Description 02/26/2025 11:30 AM EDT Office Visit [facility] [address] [facility] [address] [place] [address] Zoila Fountain, HEAT PLANT SPECIALIST [address] [facility] [address] [place] [address] Health Maintenance Due Date Last Done Comments CT Colonography 1955 FIT 1955 FOBT 1955 Sigmoidoscopy 1955 Pneumococcal Vaccine: 65+ Ye ars (1 of 2 - PCV) 1972 Diabetes: Retinopathy Screening 07/18/2024 3, 09/17/2019 Diabetes: Urine Protein Screening 11/08/2024 024, 05/29/2018 Diabetes: Hemoglobin A1C 02/26/2025 025, 02/13/2024, 11/09/2023, Additional history exists Influenza Vaccine (#1) 2025 FIT-DNA 08/20/2026 08/20/2023, 02/2019, 01/21/2019 Colonoscopy 11/02/2033 11/03/2023, 10/30/2023 Colorectal Cancer Screening 11/02/2033 Procedures Procedure Name Priority Date/Time Associated Diagnosis Comments ITP 12/18/2024 2:42 PM EDT ITP 12/13/2024 1:27 PM EDT POCT GLYCATED HEMOGLOBIN, TOTAL Routine 11/26/2024 9:38 AM EDT Type 2 diabetes mellitus with hyperglycemia, unspecified whether rn long term care insulin use (HCC) ALL PRO BNP Routine 11/22/2024 12:56 PM EDT ALL BASIC METABOLIC PANEL Routine 11/22/2024 12:56 PM EDT CA ECHO DOPPLER COMPLETE 11/08/2024 9:40 AM EDT MICROALBUMIN / CREATININE URINE RATIO Routine 11/09/2023 4:00 PM EDT Type 2 diabetes mellitus with microalbuminuria, without long-term current use of insulin (HCC) COLONOSCOPY Routine 11/03/2023 9:39 AM EDT LAB COLOGUARD COLON CANCER SCREEN Routine 08/20/2023 7:00 AM EST Screening for malignant neoplasm of colon COLOR FUNDUS PHOTOGRAPHY - OU - BOTH EYES Routine 09/17/2019 12:00 PM EST from Last 3 Months or Most Recently Relevant to Health Maintenance Results * ITP (12/18/2024 2:42 PM EDT) Only the most recent of2 resultswithin the time period is included. Anatomical Region Laterality Modality Other 12/18/2024 2:42 PM EDT Narrative 12/18/2024 4:[place] [address] Cardiac Rehab Report Signed Patient: TAWANDA JURADO MR#: [id number] : 1955 Acct:[id number] Age/Sex: 69 / M ADM Date: 12/18/24 Loc: CR Attending Dr: Judi Clark M.D. Ordering Physician: Judi Clark M.D. Date of Service: 12/18/24 Procedure(s): ITP Accession Number(s): [id number] cc: [facility] Test Date: 2024-12-18 Pat Name: TAWANDA JURADO Department: Room: - Gender: Male Day Care Teacher: : 1955 Requested By: JUDI CLARK Order Number: [id number] Elizabeth MD: Raphael Justin Interpretive Statements Okay to proceed with outlined treatment plan. Electronically Signed On 12-18-2024 16:43:09 EDT by Raphael Justin Dictated By: Raphael Justin D.O. Signed By: 12/18/24 1643 12/18/24 1643 DD/ 1442 TD/TT: Nurse Leader: Procedure Note Radiology, Radiologist, MD - 12/19/2024 [place] [address] Cardiac Rehab Report Signed Patient: TAWANDA JURADO LMR#: [id number] : 1955cct:[id number] Age/Sex: 69 / MADM Date: 12/18/24 Loc: CR Attending Dr: Judi Clark M.D. Ordering Physician: Judi Clark M.D. 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 Electronically Signed On 12-18-2024 16:43:09 EDT by Raphael Justin Dictated By: Raphael Justin D.O. Signed By:12/18/24 1643 12/18/24 164 DD/ 1442 TD/TT: Nurse Leader: Generic External Data Provider [facility] Final Result * (ABNORMAL) POCT Glycated hemoglobin, total (11/26/2024 9:38 AM EDT) Pathologist [facility] Hemoglobin A1C 8.2 Blood 11/26/2024 9:38 AM EDT Zoila Fountain HEAT PLANT SPECIALIST POINT OF CARE TEST ENTER/GUTIERREZ T ORDERABLES Final Result * (ABNORMAL) ALL PRO BNP (11/22/2024 12:56 PM EDT) Pathologist [facility] NT PRO B TYPE NATRIURETIC PEPT 2,595.0(HH ) <=900.0 pg/mL TB Comment:RESULTS CALLED TO OLGUIN MA 11/22/2024 12:5 6 PM EDT 11/22/2024 1:04 PM EDT Narrative [facility] - 11/22/2024 1:59 PM EDT Generic External Data Provider [facility] F [facility]al [facility] * (ABNORMAL) ALL BASIC METABOLIC PANEL (11/22/2024 12:56 PM EDT) Pathologist [facility] SODIUM 140 136 - 145 mmol/L [facility] POTASSIUM 4.1 3.5 - 5.1 mmol/L [facility] CHLORIDE 105 98 - 107 mmol/L [facility] CARBON DIOXIDE 27.8 21.0 - 32.0 mmol/L [facility] ANION GAP 11.3 [facility] GLUCOSE 181(H) 74 - 106 mg/dL [facility] BLOOD UREA NITROGEN 26.0(H) 7.0 - 18.0 mg/dL [facility] CREATININE 1.84(H) 0.70 - 1.30 mg/dL [facility] EGFR-AF SYRIAN 44(L) >=60 mL/min/1.7 3m 2 TBH TBH EGFR-NON AF SYRIAN 36(L) >=60 mL/min/1.7 3m 2 [facility] BUN CREATININE RATIO 14.1 [facility] CALCIUM 8.5 8.5 - 10.1 mg/dL [facility] 11/22/2024 12:5 6 PM EDT 11/22/2024 1:04 PM EDT Narrative [facility] - 11/22/2024 1:59 PM EDT us Generic External Data Provider [facility] F inal Result [facility] * CA ECHO DOPPLER COMPLETE (11/08/2024 9:40 AM EDT) Anatomical Region Laterality Modality Other 11/08/2024 9:40 AM EDT Narrative 11/08/2024 9:41 [place] [address] Cardiology Report Signed Patient: TAWANDA JURADO MR#: [id number] : 1955 Acct:[id number] Age/Sex: 69 / M ADM Date: 11/07/24 Loc: CARD Attending Dr: Nikko Roche NP Ordering Physician: Nikko Roche NP Date of Service: 11/07/24 Procedure(s): CA echo doppler complete Accession Number(s): [id number] cc: SURYA MAST ; Nikko Roche NP Patient Name: TAWANDA JURADO MR#: [id number] : 1955 Exam Date: 11/07/2024 Ordering Doctor: NIKKO ROCHE ECHOCARDIOGRAM REPORT PROCEDURE: CA ECHO DOPPLER COMPLETE INDICATIONS: Dyspnea on exertion, CABGx6, hypertension, diabetes COMPARISON: None. DESCRIPTION: COMPLETE ECHOCARDIOGRAM Real-time transthoracic echocardiography with 2D, M-mode, spectral and color flow Doppler performed. QUALITY: Technical quality was good. LEFT VENTRICLE: Normal chamber size. Moderate concentric left ventricular hypertrophy. Normal systolic function. LV EF: Normal left ventricular ejection fraction, (>55%). DIASTOLIC: Not adequately assessed due to heart rhythm. ATRIAL SEPTUM: Visually appears intact. LEFT ATRIUM: Moderate dilatation. RIGHT ATRIUM: Moderate dilatation. RIGHT VENTRICLE: Normal chamber size. Normal right ventricular systolic function. TRICUSPID VALVE: Normal mobility and thickness. No stenosis with mild regurgitation. Doppler studies reveal moderately (45-60) elevated right sided pressures. RVSP 59 mmHg MITRAL VALVE: Normal mobility and thickness. No evidence of mitral valve stenosis. There is no mitral annular calcification. Moderate mitral regurgitation with an eccentric jet. AORTIC VALVE: Normal trileaflet appearance. Mildly calcified aortic valve. Mildly diminished mobility. Doppler velocity suggest no significant aortic valve stenosis. No aortic regurgitation. AORTIC ROOT: Normal diameter and appearance. Ascending aorta is normal in size. PULMONIC VALVE: Normal thickness and mobility. No stenosis. Trivial regurgitation. PERICARDIUM: No evidence of pericardial effusion. IVC: IVC is dilated (2.8 cm), does not fully collapse. PLEURA: CONCLUSION: 1. Moderate concentric left ventricular hypertrophy with normal systolic function. LVEF is estimated at 55 to 60%. 2. Normal right ventricular size and systolic function. 3. Moderate biatrial dilatation. 4. At least moderate mitral regurgitation with an eccentrically directed regurgitation jet. 5. Mild tricuspid valve regurgitation. 6. Moderate elevation of right-sided pressures. RVSP is 59 mmHg. 7. The patient appears to be in atrial fibrillation with rapid ventricular response during the exam. 8. A transesophageal echocardiogram is recommended for better assessment of the mitral regurgitation severity. Adult Echocardiography Procedure Report Left Ventricle LVEDD (3.7 - 5.6 cm): 4.92 cm LVESD (2.2 - 4.0 cm): 3.78 cm LVIVS thickness (0.6 - 1.2 cm): 1.57 cm LVPW thickness (0.5 - 1.0 cm): 1.62 cm LVOT Max Gradient: 1.02 mm[Hg], 0.60 mm[Hg] LVOT Area (cm2): 0.45 m/s Peak Velocity (LVOT): 0.51 m/s, 0.39 m/s Mean Velocity (LVOT): 0.31 m/s LVOT Diameter 2.62 cm Left Atrium LA Volume Index (2D A2C): 45.92 ml/m2 Left Atrium Systolic Dimension: 4.96 cm Mitral Valve Mitral Valve E-Wave Peak Velocity: 0.81 m/s Right Ventricle Aorta AO Root Diam: 3.94 cm Ascending Ao Diam: 3.44 cm Aortic Valve AoV Area (Peak Josh): 2.27 cm2, 2.52 cm2, 2.70 cm2 AoV Area (VTI): 1.84 cm2, 2.13 cm2, 2.46 cm2 Peak Velocity(Antegrade Flow): 1.08 m/s, 0.78 m/s, 1.33 m/s Peak Gradient(Antegrade Flow): 4.69 mm[Hg], 2.41 mm[Hg], 7.12 mm[Hg] Mean Velocity(Antegrade Flow): 0.69 m/s, 0.50 m/s, 0.95 m/s Mean Gradient(Antegrade Flow): 2.24 mm[Hg], 1.13 mm[Hg], 4.10 mm[Hg] Velocity Time Integral: 18.04 cm, 12.07 cm, 25.57 cm Tricuspid Valve Peak Velocity (Regurgitant Flow): 3.24 m/s, 3.40 m/s Pulmonic Valve Peak Velocity: 0.51 m/s Peak Gradient: 1.04 mm[Hg] Right Atrium Right Atrium Systolic Pressure: 85.51 ml, 85.51 ml Dictated by: Musa Rahman M.D. on 11/08/2024 at 09:34 Approved by: Musa Rahman M.D. on 11/08/2024 at 09:40 Dictated By: MUSA RAHMAN Signed By: 11/08/24 0941 DD/ 9 TD/TT: Nurse Leader: Procedure Note Radiology, Radiologist, MD - 11/08/2024 [place] [address] Cardiology Report Signed Patient: TAWANDA JURADO LMR#: [id number] : 1955cct:[id number] Age/Sex: 69 / MADM Date: 11/07/24 Loc: CARD Attending Dr: Nikko Roche NP Ordering Physician: Nikko Roche NP Date of Service: 11/07/24 Procedure(s): CA echo doppler complete Accession Number(s): [id number] cc: SURYA MAST ; Nikko Roche NP Patient Name: TAWNADA JURADO MR#: [id number] : 1955 Exam Date: 11/07/2024 Ordering Doctor: NIKKO ROCEH ECHOCARDIOGRAM REPORT PROCEDURE: CA ECHO DOPPLER COMPLETE INDICATIONS: Dyspnea on exertion, CABGx6, hypertension, diabetes COMPARISON: None. DESCRIPTION: COMPLETE ECHOCARDIOGRAM Real-time transthoracic echocardiography with 2D, M-mode, spectral and color flow Dopplerperformed. QUALITY: Technical quality was good. LEFT VENTRICLE: Normal chamber size. Moderate concentric leftventricular hypertrophy. Normal systolic function. LV EF: Normal left ventricular ejection fraction, (>55%). DIASTOLIC: Not adequately assessed due to heart rhythm. ATRIAL SEPTUM: Visually appears intact. LEFT ATRIUM: Moderate dilatation. RIGHT ATRIUM: Moderate dilatation. RIGHT VENTRICLE: Normal chamber size. Normal right ventricularsystolic function. TRICUSPID VALVE: Normal mobility and thickness. No stenosis with mild regurgitation. Doppler studies reveal moderately (45-60) elevated rightsided pressures. RVSP 59 mmHg MITRAL VALVE: Normal mobility and thickness. No evidence of mitralvalve stenosis. There is no mitral annular calcification. Moderate mitral regurgitation with an eccentric jet. AORTIC VALVE: Normal trileaflet appearance. Mildly calcified aorticvalve. Mildly diminished mobility. Doppler velocity suggest no significantaortic valve stenosis. No aortic regurgitation. AORTIC ROOT: Normal diameter and appearance. Ascending aorta is normalin size. PULMONIC VALVE: Normal thickness and mobility. No stenosis. Trivial regurgitation. PERICARDIUM: No evidence of pericardial effusion. IVC: IVC is dilated (2.8 cm), does not fully collapse. PLEURA: CONCLUSION: 1. Moderate concentric left ventricular hypertrophy with normal systolic function. LVEF is estimated at 55 to 60%. 2. Normal right ventricular size and systolic function. 3. Moderate biatrial dilatation. 4. At least moderate mitral regurgitation with an eccentrically directed regurgitation jet. 5. Mild tricuspid valve regurgitation. 6. Moderate elevation of right-sided pressures. RVSP is 59 mmHg. 7. The patient appears to be in atrial fibrillation with rapid ventricular response during the exam. 8. A transesophageal echocardiogram is recommended for better assessmentof the mitral regurgitation severity. Adult Echocardiography Procedure Report Left Ventricle LVEDD (3.7 - 5.6 cm): 4.92 cm LVESD (2.2 - 4.0 cm): 3.78 cm LVIVS thickness (0.6 - 1.2 cm): 1.57 cm LVPW thickness (0.5 - 1.0 cm): 1.62 cm LVOT Max Gradient: 1.02 mm[Hg], 0.60 mm[Hg] LVOT Area (cm2): 0.45 m/s Peak Velocity (LVOT): 0.51 m/s, 0.39 m/s Mean Velocity (LVOT): 0.31 m/s LVOT Diameter 2.62 cm Left Atrium LA Volume Index (2D A2C): 45.92 ml/m2 Left Atrium Systolic Dimension: 4.96 cm Mitral Valve Mitral Valve E-Wave Peak Velocity: 0.81 m/s Right Ventricle Aorta AO Root Diam: 3.94 cm Ascending Ao Diam: 3.44 cm Aortic Valve AoV Area (Peak Josh): 2.27 cm2, 2.52 cm2, 2.70 cm2 AoV Area (VTI): 1.84 cm2, 2.13 cm2, 2.46 cm2 Peak Velocity(Antegrade Flow): 1.08 m/s, 0.78 m/s, 1.33 m/s Peak Gradient(Antegrade Flow): 4.69 mm[Hg], 2.41 mm[Hg], 7.12 mm[Hg] Mean Velocity(Antegrade Flow): 0.69 m/s, 0.50 m/s, 0.95 m/s Mean Gradient(Antegrade Flow): 2.24 mm[Hg], 1.13 mm[Hg], 4.10 mm[Hg] Velocity Time Integral: 18.04 cm, 12.07 cm, 25.57 cm Tricuspid Valve Peak Velocity (Regurgitant Flow): 3.24 m/s, 3.40 m/s Pulmonic Valve Peak Velocity: 0.51 m/s Peak Gradient: 1.04 mm[Hg] Right Atrium Right Atrium Systolic Pressure: 85.51 ml, 85.51 ml Dictated by: Musa Rahman M.D. on 11/08/2024 at 09:34 Approved by: Musa Rahman M.D. on 11/08/2024 at 09:40 Dictated By: MUSA RAHMAN Signed By:11/08/2441 DD/ 9 TD/TT: Nurse Leader: us Generic External Data Provider [facility] Final Result * Microalbumin / creatinine urine ratio (11/09/2023 4:00 PM EDT) CREATININE, RANDOM URINE 94 20 - 320 mg/dL [facility] ALBUMIN, URINE 1.4 See Note: mg/dL [facility] Comment: Reference Range: Reference Range Not established ALBUMIN/CREATININE RATIO, RANDOM URINE 15 <30 mg/g creat [facility] Comment: The ADA defines abnormalities in albumin excretion as follows: Albuminuria Category Result (mg/g creatinine) Normal to Mildly increased <30 Moderately increased 30-299 Severely increased > OR = 300 The ADA recommends that at least two of three specimens collected within a 3-6 month period be abnormal before considering a patient to be within a diagnostic category. Urine Urine specimen obtained by clean catch procedure / Unknown 11/09/2023 4:00 PM EDT 11/09/2023 4:01 PM EDT Narrative Resulting Agency Comment Performing Organization Information Site ID: [id number] Name: [facility] Address: [address] [place] [address], [address] [place] [id number] Director: Isauro Norman MD Surya Mast MD LAB URINE ORDERABLES Final Resul t Performing Organization Address City/State/[facility] Co de Phone Number [facility] * Colonoscopy (11/03/2023 9:39 AM EDT) Anatomical Region Laterality Modality Endoscopy us Davide Frias MD ENDOSCOPY PROCEDURE ORDERABL ES Final Result * (ABNORMAL) Cologuard?? colon cancer screening (08/20/2023 7:00 AM EST) NONINV COLON CA DNA+OCC BLD SCRN STL-IMP Positive( A) Negative 09/02/2023 2:11 AM EST [facility] (CLIA #:[id number]) Comment: POSITIVE TEST RESULT. A positive Cologuard result should be followed with a colonoscopy or visual examination of the colon. The normal value (reference range) for this assay is negative. TEST DESCRIPTION: Composite algorithmic analysis of stool DNA-biomarkers with hemoglobin immunoassay. Quantitative values of individual biomarkers are not reportable and are not associated with individual biomarker result reference ranges. Cologuard is intended for colorectal cancer screening of adults of either sex, 45 years or older, who are at average-risk for colorectal cancer (CRC). Cologuard has been approved for use by the [place] FDA. The performance of Cologuard was established in a cross sectional study of average-risk adults aged 50-84. Cologuard performance in patients ages 45 to 49 years was estimated by sub-group analysis of near-age groups. Colonoscopies performed for a positive result may find as the most clinically significant lesion: colorectal cancer [4.0%], advanced adenoma (including sessile serrated polyps greater than or equal to 1cm diameter) [20%] or non- advanced adenoma [31%]; or no colorectal neoplasia [45%]. These estimates are derived from a prospective cross-sectional screening study of 10,000 individuals at average risk for colorectal cancer who were screened with both Cologuard and colonoscopy. (Rocio Stahl. et al, N Engl J Med 2014;370(14):6329-2783.) Cologuard may produce a false negative or false positive result (no colorectal cancer or precancerous polyp present at colonoscopy follow up). A negative Cologuard test result does not guarantee the absence of CRC or advanced adenoma (pre-cancer). The current Cologuard screening interval is every 3 years. ([place] [employer] and [place] Multi-Society Task Force). Cologuard performance data in a 10,000 patient pivotal study using colonoscopy as the reference method can be accessed at the following location: [email or web address]/results. Additional description of the Cologuard test process, warnings and precautions can be found at www.cologuard.com. Stool specimen (specimen) Rectal contents / Unknown 08/20/2023 7:00 AM EST 08/23/2023 9:31 AM EST Surya Mast MD LAB MOLECULAR DIAGNOSTICS ORDERA BLES Final Result .[employer] (CLIA #:[id number]) [address] [address], [facility] (CLIA #:[id number]) [address] [place] [address] * Color Fundus Photography - OU - Both Eyes (09/17/2019 12:00 PM EST) Anatomical Region Laterality Modality Head Fundus Photograp hy 09/17/2019 12:0 0 PM EST Narrative 09/17/2019 12:00 PM EST PERFORMED AT [facility] LOCATION:[id number] [facility] Procedure Note CONVERSION, GENERIC - 11/30/2022 PERFORMED [address] [facility] LOCATION:[id number] [facility] Marielena PIMENTEL OPHTH PHOTOGRAPHY Final Result from Last 3 Months or Most Recently Relevant to Health Maintenance Insurance [employer] MEDICARE [facility] [place] [id number] MED RISK EPO Care Teams Drug Abuse Counselor Relationship Specialty Start Date End Date Surya Mast MD [address] [place] [address] PCP - General Family Medicine 11/22/22
--- OUTSIDE RECORDS SUMMARY | 2025-02-06 11:39 | XMS_ITS | Encounter Summary ---
Author Organization [facility] Address [address] [place] [address] Care Team Providers Care Probate Lawyer Name Role Phone Surya Hinton MD Unavailable Surya Hinton MD Primary Care Provider [phone] Zoila Fountain NP Unavailable [phone] Encounter Details Date Type Department Care Team (Late st Contact Info) Description 11/03/[address] [facility] [address] [facility] [address] [place] [id number] Davide Cobb MD 7[address] [facility] 150 [place] [address] Social History Tobacco Use Types Packs/Day Years [...] Visit [facility] [address] [facility] [address] [place] [address] Zoila Fountain, CLAIMS VICE PRESIDENT [address] [facility] [address] [place] [address] documented as of this encounter Procedures Procedure Name Priority Date/Time Associated Diagnosis Comments COLONOSCOPY Routine 11/03/2023 9:39 AM EDT documented in this encounter Results * Colonoscopy (11/03/2023 9:39 AM EDT) Anatomical Region Laterality Modality Endoscopy Davide Frias MD ENDOSCOPY PROCEDURE ORDERABL ES Final Result documented in this encounter Visit Diagnoses Not on filedocumented in this encounter Care Teams Probate Lawyer Relationship Specialty Start Date End Date Surya Hinton MD [address] [facility] 110 [place] [address] PCP - [place] [employer] 10/15/20 Surya Hinton MD [address] [facility] 110 [place] [address] PCP - General Family Medicine 11/22/22 Zoila Fountain CLAIMS VICE PRESIDENT [address] [facility] 110 [place] [address] PCP - [place] [employer] 03/17/24 documented as of this encounter
--- OUTSIDE RECORDS SUMMARY | 2025-02-06 11:39 | XMS_ITS | Encounter Summary ---
Author Organization [facility] Address [address] [facility] [place] [address] Care Team Providers Care Pneumatic Systems Operator Name Role Phone Surya Hinton MD Unavailable Surya Hinton MD Primary Care Provider [phone] Zoila Fountain NP Unavailable [phone] Encounter Details Date Type Department Care Team (Late Contact Info) Description 04/12/2023 Abstract [facility] [address] [facility] 110 [place] [phone] Surya Hinton MD 112 [facility] 110 [place] [address] Social History Tobacco Use Types Packs/Day Years [...] Office Visit [facility] [address] [facility] 110 [place] [phone] Zoila Fountain NP [address] [place] [facility] [address] [place] [address] documented as of this encounter Visit Diagnoses Not on filedocumented in this encounter Care Teams Pneumatic Systems Operator Relationship Specialty Start Date End Date Surya Hinton MD [address] [facility] [address] [place] [address] PCP - [place] [employer] 10/15/20 Surya Hinton MD [address] [place] [facility] [address] [place] [address] PCP - General Family Medicine 11/22/22 Zoila Fountain, LOCKSMITH HELPER [address] [facility] 110 [place] [address] PCP - [place] [employer] 03/17/24 documented as of this encounter
--- OUTSIDE RECORDS SUMMARY | 2025-02-06 11:39 | XMS_ITS | Encounter Summary ---
Author Organization [facility] Address [address] [facility] [place] [address] Care Team Providers Care Parking Ramp Attendant Name Role Phone Surya Hinton MD Primary Care Provider [phone] Zoila Fountain PAINTER AND DECORATOR Unavailable [phone] Encounter Details Date Type Department Care Team ([facility] Contact Info) Description 09/13/2024 Abstract [facility] [address] [facility] 110 [place] [phone] Surya Hinton MD [address] [facility] 110 [place] [address] Social History Tobacco Use Types Packs/Day Years [...] Visit [facility] [address] [facility] [address] [place] [phone] Zoila Fountain NP [address] [facility] [address] [place] [address] documented as of this encounter Visit Diagnoses Not on filedocumented in this encounter Care Teams Parking Ramp Attendant Relationship Specialty Start Date End Date Surya Hinton MD [address] [facility] 110 [place] [address] PCP - General Family Medicine 11/22/22 Zoila Fountain NP 112 [facility] [address] [place] [address] PCP - [place] [employer] 03/17/24 documented as of this encounter
--- OUTSIDE RECORDS SUMMARY | 2025-02-06 11:39 | XMS_ITS | Encounter Summary ---
Author Organization [facility] Address [address] [facility] [place] [address] Care Team Providers Care Varnish Maker Helper Name Role Phone Surya Hinton MD Unavailable Surya Hinton MD Primary Care Provider [phone] Zoila Fountain NP Unavailable [phone] Encounter Details Date Type Department Care Team (Late Contact Info) Description 03/15/2024 Abstract [facility] [address] [facility] 110 [place] [phone] Surya Hinton MD [address] [facility] 110 [place] [address] Social History Tobacco Use Types Packs/Day Years [...] Office Visit [facility] [address] [facility] 110 [place] [phone] Zoila Fountain NP [address] [place] [facility] 110 [place] [address] documented as of this encounter Visit Diagnoses Not on filedocumented in this encounter Care Teams Varnish Maker Helper Relationship Specialty Start Date End Date Surya Hinton MD [address] [facility] 110 [place] [address] PCP - [place] [employer] 10/15/20 Surya Hinton MD [address] [place] [facility] 110 [place] [address] PCP - General Family Medicine 11/22/22 Zoila Fountain, PURCHASE REQUEST EDITOR [address] [facility] 110 [place] [address] PCP - [place] [employer] 03/17/24 documented as of this encounter
--- OUTSIDE RECORDS SUMMARY | 2025-02-06 11:39 | XMS_ITS | Encounter Summary ---
Author Organization [facility] Address [address] [facility] [place] [address] Care Team Providers Care Marketing Communications Coordinator Name Role Phone Surya Hinton MD Primary Care Provider [phone] Encounter Details Date Type Department Care Team ([facility] Contact Info) Description 12/25/2024 Abstract [facility] [address] [facility] 110 [place] [address] Surya Hinton MD [address] [facility] 110 [place] [address] Social History Tobacco Use Types Packs/Day Years [...] Upcoming Encounters Date Type Department Care Team ([facility] Contact Info) Description 02/26/2025 11:30 AM EDT Office Visit [facility] [address] [facility] [address] [place] [address] Zoila Fountain NP [address] [facility] 110 [place] [address] documented as of this encounter Visit Diagnoses Not on filedocumented in this encounter Care Teams Marketing Communications Coordinator Relationship Specialty Start Date End Date Surya Hinton MD [address] [address] PCP - General Family Medicine 11/22/22 documented as of this encounter
--- OUTSIDE RECORDS SUMMARY | 2025-02-06 11:39 | XMS_ITS | Clinical Summary ---
Author Organization [facility] Address [address] [place] [address] Care Team Providers Care Drill Press Operator Helper Name Role Phone Surya Hinton MD Primary Care Provider [phone] Allergies No known active allergies Medications aspirin 81 mg chewable tablet Chew 81 mg in the morning. Active atorvastatin (Lipitor) 80 mg tablet Take 80 mg by mouth at bedtime. Active dapagliflozin (Farxiga) 10 mg Take 1 tablet by mouth in the morning. Active isosorbide mononitrate ER (Imdur) 120 mg 24 hr tablet Take 120 mg by mouth in the evening. Active lisinopril 40 mg tablet Take 1 tablet by mouth in the morning. Active metFORMIN (Glucophage) 500 mg tabletIndication s:Type 2 diabetes mellitus with stage 3b chronic kidney disease, without long-term current use of insulin (CMS/HCC) TAKE 1 TABLET BY MOUTH WITH BREAKFAST AND WITH EVENING MEAL 60 tablet 3 Active Additional Information Patient not taking.Reported on 01/06/2025 semaglutide (Rybelsus) 7 mg tablet Take 1 tablet by mouth in the morning. Active cloNIDine (Catapres) 0.2 mg tablet Take 0.3 mg by mouth two times daily. 4 Active traZODone (Desyrel) 100 mg tablet Take 200 mg by mouth at bedtime. 4 02/13/20 25 Active terazosin (Hytrin) 2 mg capsuleIndicatio ns:Stage 3b chronic kidney disease (CMS/HCC),Hypert ension secondary to other renal disorders TAKE 3 CAPSULES BY MOUTH AT BEDTIME 270 capsule 5 Active carvedilol (Coreg) 25 mg tabletIndication s:Benign hypertensive heart disease without congestive heart failure Take 1 tablet (25 mg) by mouth with breakfast and with evening meal. 180 tablet 3 5 09/06/19 Active meloxicam (Mobic) 15 mg tablet Take 1 tablet by mouth in the morning. 5 Active cyclobenzaprine (Flexeril) 10 mg tablet take 1 tablet by mouth three times a day as needed for spasm 4 Active ezetimibe (Zetia) 10 mg tabletIndication s:Acute heart failure with preserved ejection fraction (CMS/HCC) Take 1 tablet (10 mg) by mouth in the morning. 30 tablet 11 5 11/14/19 26 Active apixaban (Eliquis) 5 mg tabletIndication s:Atrial fibrillation, unspecified type (CMS/HCC) Take 1 tablet (5 mg) by mouth two times daily. 60 tablet 3 5 Active Additional Information Patient not taking.Reported on 01/06/2025 ezetimibe (Zetia) 10 mg tabletIndication s:Coronary artery disease, unspecified vessel or lesion type, unspecified whether angina present, unspecified whether [place] or transplanted heart Take 1 tablet (10 mg) by mouth in the morning. 30 tablet 11 5 11/14/19 26 Active Additional Information Patient not taking.Reported on 01/06/2025 furosemide (Lasix) 40 mg tabletIndication s:Bilateral lower extremity edema,BARRON (dyspnea on exertion) Take 1 tablet (40 mg) by mouth in the morning. 90 tablet 3 5 11/09/19 26 Active hydrALAZINE (Apresoline) 50 mg tablet Take 1 tablet by mouth every 6 (six) hours during the day. 5 Active rivaroxaban (Xarelto) 20 mg tabletIndication s:Paroxysmal atrial fibrillation (CMS/HCC) Take 1 tablet (20 mg) by mouth daily with evening meal. Take with food. 30 tablet 11 5 Active Active Problems Problem Noted Date Diagnosed Date Atrial fibrillation 11/13/2024 Chronic pain 05/02/2024 Elevated blood pressure reading 05/02/2024 Knee pain, left 05/02/2024 Laceration of mouth 05/02/2024 Maxillary fracture 05/02/2024 Adenomatous polyp of sigmoid colon 11/07/2023 Positive colorectal cancer screening using Colog uard test 10/10/2023 Influenza 08/07/2023 Diabetic renal disease 02/14/2023 Post-acute COVID-19 syndrome 02/14/202310/2022 Benign essential hypertension 02/14/2023 Diabetes mellitus 02/14/2023 Hypertension secondary to other renal disorders 09/14/2022 Hypomagnesemia 05/18/2022 Sequelae of other specified infectious and parasitic diseases 07/20/2021 Stage 3 chronic kidney disease 05/28/2021 Type 2 diabetes mellitus wit h diabetic chronic kidney disease 05/29/2018 Coronary artery disease 05/29/2018 Benign prostatic hyperplasia 05/29/2018 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 05/29/2018 Hypertension 07/22/2016 Bilateral primary osteoarthritis of knee 016 04/19/2023 Gastro-esophageal reflux disease without esophag itis 06/08/2016 04/19/2023 Hyperlipidemia, unspecified 06/08/2016 10/0 10/2022 Muscle weakness (generalized) 06/08/2016 Non-ST elevation (NSTEMI) myocardial infarction 06/08/2016 04/19/2023 Encounters Date Type Department Care Team Description 01/06/2025 3:00 PM EDT Office Visit [facility] Cardiology [address] [place] [address] Reed Estrella MD Persistent atrial fibrillation (CMS/HCC) (Primary Dx) 12/18/2024 Telephone [facility] [address] [place] [address] Codie Reynoso MA 12/12/2024 1:45 PM EDT Follow-Up [facility] [address] [place] [address] Judi Wilson MD Paroxysmal atrial fibrillation (CMS/HCC) 11/29/2024 10:35 AM EDT - 11/29/2024 11:35 AM EDT Surgery [facility] Vascular Lab [address] [place] [address] Jose Menjivar MD Cardioversion 11/29/2024 8:55 AM EDT - 11/29/2024 11:46 AM EDT Hospital Encounter [facility] Vascular Lab [address] [place] [address] [place] Technical InternshipMD Atrial fibrillation, unspecified type (CMS/HCC) Discharge Disposition: Home or Self Care () 11/29/2024 8:54 AM EDT Hospital Encounter [facility] Lab [address] [facility] [address] [address] [place] [address] Atrial fibrillation, unspecified type (CMS/HCC); Nonrheumatic mitral valve regurgitation Discharge Disposition: Home or Self Care () 11/29/2024 Travel 11/22/2024 Telephone [facility] [address] [place] [address] Anaamria Naik MA 11/22/2024 Travel 11/13/2024 1:30 PM EDT Office Visit [facility] [address] [place] [address] Nikko Roche CNP New onset atrial fibrillation (CMS/HCC) (Primary Dx); Atrial fibrillation, unspecified type (CMS/HCC); Acute heart failure with preserved ejection fraction (CMS/HCC); Bilateral lower extremity edema; BARRON (dyspnea on exertion); Resistant hypertension; PAC (premature atrial contraction); Irregularly irregular pulse rhythm; Coronary artery disease, unspecified vessel or lesion type, unspecified whether angina present, unspecified whether [place] or transplanted heart; Nonrheumatic mitral valve regurgitation; Mixed hyperlipidemia from Last 3 Months Immunizations Immunization Administration Dates Next Due Pfizer SARS-CoV-2 Vaccination 10/21/2020 Unspecified Sars-Cov-2 Vaccination 11/11/2020, Family History Medical History Relation Name Comments ALS Brother Coronary artery disease Brother Stroke Brother Coronary artery disease Father Coronary artery disease Mother Relation Name Status Comments Brother Father Mother Sister Alive Social History Tobacco Use Types Packs/Day Years Used Date Smoking Tobacco: Former Cigarettes Smokeless Tobacco: Never Tobacco Cessation:Counseling Given: Not Answered Alcohol Use Standard Drinks/Week Comments Not Currently 0 (1 standard drink = 0.6 oz pur e alcohol) occasional PHQ-2 Answer Date Recorded Patient Health Questionnaire-2 Score 0 08/17/2022 [place] Safety & [place] Answer Date Rec orded Fear of Current or Ex-Partner Not on file Emotionally Abused Not on file 09/07/2023 Physically Abused Not on file 09/07/2023 Sexually Abused Not on file 09/07/2023 Physically or Sexually Abused Not on file Sex and Gender Information Value Date Recorded Sex Assigned at Male 05/18/2022 9:32 AM EDT Legal Sex Male 10:16 PM EDT Gender Identity Male 05/18/2022 9:32 AM EDT Sexual Orientation Heterosexual or Straight 08/2021 9:32 AM EDT Last Filed Vital Signs Vital Sign Reading Time Taken Comments Blood Pressure 150/90 01/06/2025 2:44 PM EDT Pulse 72 01/06/2025 2:44 PM EDT Temperature 10 C (50 F) 11/29/2024 10:52 AM EDT Respiratory Rate 15 11/29/2024 11:30 AM EDT Oxygen Saturation 98% 01/06/2025 2:44 PM EDT Inhaled Oxygen Concentration - - Weight 99.8 kg (220 lb) 01/06/2025 2:44 PM EDT Height 177.8 cm (5' 10 ) 01/06/2025 2:44 PM EDT Body Mass Index 31.57 01/06/2025 2:44 PM EDT Plan of Treatment Upcoming Encounters Date Type Department Care Team (Late st Contact Info) Description 04/03/2025 2:00 PM EDT Office Visit [facility] Cardiology [address] [place] [address] Reed Estrella MD [address] [place] [address] Health Maintenance Due Date Last Done Comments CT Colonography 1955 Diabetes: Hemoglobin A1C 1955 FIT-DNA 1955 FOBT 1955 Medicare Annual Wellness (AWV) 1955 Sigmoidoscopy 1955 Diabetes: Retinopathy Screening 1963 Depression Screening 1965 Pneumococcal Vaccine: 50+ Years (1 of 2 - PCV) 1972 Adult Tetanus 1975 Zoster Vaccines (1 of 2) 2003 Fall Risk Screening 2018 COVID-19 Vaccine (4 - 2023-2 5 season) 2024 11/11/2020, 10/21/2020, 10/21/2020 FIT 08/20/2024 08/20/2023 Influenza Vaccine (#1) 2025 Colonoscopy 11/02/2033 11/03/2023 Colorectal Cancer Screening 11/02/2033 HIB Vaccines Aged Out No longer eligi ble based on patient's age to complete this topic HPV Vaccines Aged Out No longer eligi ble based on patient's age to complete this topic IPV Vaccines Aged Out No longer eligi ble based on patient's age to complete this topic Meningococcal B Vaccine Aged Out No l onger eligible based on patient's age to complete this topic Meningococcal Vaccine Aged Out No marjorie monik eligible based on patient's age to complete this topic Rotavirus Vaccines Aged Out No longer eligible based on patient's age to complete this topic Procedures Procedure Name Priority Date/Time Associated Diagnosis Comments ECG 12 LEAD UNIT PERFORMED Routine 12/12/2024 2:05 PM EDT Paroxysmal atrial fibrillation (CMS/HCC) ECG 12-LEAD Routine 11/29/2024 11:26 AM EDT TRANSESOPHAGEAL ECHO (CADEN) W/ LIMITED DOPPLER AND COLOR FLOW Routine 11/29/2024 11:10 AM EDT Atrial fibrillation, unspecified type (CMS/HCC) Nonrheumatic mitral valve regurgitation CARDIOVERSION Routine 11/29/2024 10:54 AM EDT Atrial fibrillation, unspecified type (CMS/HCC) ECG 12-LEAD Routine 11/29/2024 9:56 AM EDT ECG 12 LEAD UNIT PERFORMED Routine 11/13/2024 1:46 PM EDT Irregularly irregular pulse rhythm from Last 3 Months Results * ECG 12 lead unit performed (12/12/2024 2:05 PM EDT) Only the most recent of2 resultswithin the time period is included. Judi Wilson MD ECG ORDERABLES Final Result * ECG 12 lead (11/29/2024 11:26 AM EDT) Only the most recent of2 resultswithin the time period is included. Pathologist [facility] Ventricular Rate 62 BPM GE MUSE Atrial Rate 62 BPM GE MUSE MN Interval 168 ms GE MUSE QRS DURATION 92 ms GE MUSE QT Interval 476 ms GE MUSE QTC CALCULATION(BAZE TT) 483 ms GE MUSE P [place] 74 degrees GE MUSE R-[place] 21 degrees GE MUSE T Wave [place] -15 degrees GE MUSE 11/29/2024 10:5 4 AM EDT 11/29/2024 11:34 AM EDT Impressions GE MUSE - 11/29/2024 11:34 AM EDT Sinus rhythm with occasional Premature ventricular complexes Prolonged QT Abnormal ECG Compared to tracing of 29-NOV-2024 09:47 Sinus rhythm has replaced Atrial fibrillation Confirmed by Yvonne GRANGER, L.S. (2) on 11/29/2024 11:34:20 AM Narrative Procedure Note Roxanna Granger MD - 11/29/2024 IMPRESSION: Sinus rhythm with occasional Premature ventricular complexes Prolonged QT Abnormal ECG Compared to tracing of 29-NOV-2024 09:47 Sinus rhythm has replaced Atrial fibrillation Confirmed by Yvonne GRANGER, L.S. (2) on 11/29/2024 11:34:20 AM Jose Menjivar MD ECG ORDERABLES Final Result GE MUSE * TRANSESOPHAGEAL ECHO (CADEN) W/ LIMITED DOPPLER AND COLOR FLOW (11/29/2024 11:10 AM EDT) Anatomical Region Laterality Modality Other 11/29/2024 10:1 3 AM EDT Narrative 11/29/2024 11:00 PM EDT 1 [place] [facility] Heart Station [address] [place] [address] [phone] (fax) Transesophageal Echocardiogram-[facility] Name: TAWANDA JURADO Study Date: 11/29/2024 10:13 AM B/P: 164 mmHg/122 mmHg HR: Date of : 1955 Location: [facility] Height: 70 in. Age: 69 year(s) Patient Room: Weight: 257 lb. Gender: Male Patient Status: OutPt BSA: 2.32 m2 Indication: Atrial Fibrillation, Pre-cardioversion, Mitral regurgitation Examination: CADEN (Transesophageal Echo / CFI), Limited Doppler Image Quality: Adequate Patient Consent: Informed, written consent was obtained for the procedure Examination: A CADEN was performed without complications Exam Location: A CADEN was performed in the Commercial Account Officer without complications Anesthesia Pharyngeal anesthesia with viscous Lidocaine Conclusions Left Ventricle: The left ventricle is normal size. Global left ventricular systolic function is normal. Right Ventricle: The right ventricle appears normal in size. Right ventricular systolic function appears normal. Left Atrium: The left atrium is severely enlarged. Mitral Valve: Moderate mitral regurgitation. No evidence of systolic flow reversal in the pulmonary veins. Aortic Valve: Mild aortic valve stenosis. Tricuspid Valve: Moderate tricuspid regurgitation. Aorta: Severe atherosclerotic plaque is seen in the aorta. Overall Conclusions: Biphasic cardioversion was performed at 360 J, the patient was converted to sinus rhythm Medications Date Time Name Route Form Dose Units Ordered By Given By Comment 11/29/2024 11:19 AM Hydralazine (Apresoline) 10 milligrams 11/29/2024 11:19 AM Midazolam HCL (Versed) 3 milligrams 11/29/2024 11:19 AM Fentanyl (Opiates) 75 micrograms Measurements Left Ventricle Label Value Normal Value LVOTd 2.3 cm (19cm - 21cm) LVOT VTI 14.3 cm (18cm - 22cm) LVOT PGmax 2 mmHg LVOT PGmean 1 mmHg LVSV_LVOT 59 ml Aortic Valve Label Value Normal Value AV DVI 0.5 AV VTI 28.9 cm Tricuspid Valve Label Value Normal Value TR Vmax 2.62 m/s Valvular Assessment LVOT 0.7 - 1.1 m/sec Aortic Valve 1.0 - 1.7 m/sec Mitral Valve 0.6 - 1.3 m/sec Tricuspid Valve 0.3 - 0.7 m/sec Pulmonic Valve 0.6 - 0.9 m/sec Regurgitation No Mod Moderate No Stenosis Mild Max Velocity 0.68 m/sec 1.35 m/s Max Gradient 7.00 mmHg Mean Gradient 5.00 mmHg Valve Area 2.1 cm?? Findings Left Ventricle: The left ventricle is normal size. Global left ventricular systolic function is normal. Right Ventricle: The right ventricle appears normal in size. Right ventricular systolic function appears normal. Left Atrium: The left atrium is severely enlarged. Left Atrium Appendage: Normal left atrial appendage, no thrombus seen. IAS: Doppler flow studies indicate a PFO. Right Atrium: The right atrium is severely enlarged. Mitral Valve: Mitral valve appears normal. Moderate mitral regurgitation. No evidence of systolic flow reversal in the pulmonary veins. Aortic Valve: Mild aortic cusp calcification is noted. Aortic valve is tri-leaflet. No aortic valve regurgitation. Mild aortic valve stenosis. Tricuspid Valve: Normal tricuspid valve. Moderate tricuspid regurgitation. Pulmonic Valve: Pulmonary valve appears normal. No pulmonary regurgitation. Aorta: Severe atherosclerotic plaque is seen in the aorta. Atheroma in the aortic arch. The Attending Physician was present and personally reviewed the examination Procedure Staff Reading Group: [place] [facility] Card Lacer: Vu Gomez RDCS Ordering Physician: NIKKO ROCHE Procedure Note Jose Menjivar MD - 11/29/2024 1 [place] [facility] Heart Station [address] [facility] [address] [phone] (fax) Transesophageal Echocardiogram-[facility] Name: TAWANDA JURADO Study Date: 11/29/2024 10:13 AM B/P: 164 mmHg/122 mmHg HR: Date of : 1955 Location: [facility] Height: 70 in. Age: 69 year(s) Patient Room: Weight: 257 lb. Gender: Male Patient Status: OutPt BSA: 2.32 m2 Indication: Atrial Fibrillation, Pre-cardioversion, Mitral regurgitation Examination: CADEN (Transesophageal Echo / CFI), Limited Doppler Image Quality: Adequate Patient Consent: Informed, written consent was obtained for the procedure Examination: A CADEN was performed without complications Exam Location: A CADEN was performed in the Commercial Account Officer without complications Anesthesia Pharyngeal anesthesia with viscous Lidocaine Conclusions Left Ventricle: The left ventricle is normal size. Global left ventricular systolic function is normal. Right Ventricle: The right ventricle appears normal in size. Right ventricular systolic function appears normal. Left Atrium: The left atrium is severely enlarged. Mitral Valve: Moderate mitral regurgitation. No evidence of systolic flow reversal in the pulmonary veins. Aortic Valve: Mild aortic valve stenosis. Tricuspid Valve: Moderate tricuspid regurgitation. Aorta: Severe atherosclerotic plaque is seen in the aorta. Overall Conclusions: Biphasic cardioversion was performed at 360 J, the patient was converted to sinus rhythm Medications Date Time Name Route Form Dose Units Ordered By Given By Comment 11/29/2024 11:19 AM Hydralazine (Apresoline) 10 milligrams 11/29/2024 11:19 AM Midazolam HCL (Versed) 3 milligrams 11/29/2024 11:19 AM Fentanyl (Opiates) 75 micrograms Measurements Left Ventricle Label Value Normal Value LVOTd 2.3 cm (19cm - 21cm) LVOT VTI 14.3 cm (18cm - 22cm) LVOT PGmax 2 mmHg LVOT PGmean 1 mmHg LVSV_LVOT 59 ml Aortic Valve Label Value Normal Value AV DVI 0.5 AV VTI 28.9 cm Tricuspid Valve Label Value Normal Value TR Vmax 2.62 m/s Valvular Assessment LVOT 0.7 - 1.1 m/sec Aortic Valve 1.0 - 1.7 m/sec Mitral Valve 0.6 - 1.3 m/sec Tricuspid Valve 0.3 - 0.7 m/sec Pulmonic Valve 0.6 - 0.9 m/sec Regurgitation No Mod Moderate No Stenosis Mild Max Velocity 0.68 m/sec 1.35 m/s Max Gradient 7.00 mmHg Mean Gradient 5.00 mmHg Valve Area 2.1 cm?? Findings Left Ventricle: The left ventricle is normal size. Global left ventricular systolic function is normal. Right Ventricle: The right ventricle appears normal in size. Right ventricular systolic function appears normal. Left Atrium: The left atrium is severely enlarged. Left Atrium Appendage: Normal left atrial appendage, no thrombus seen. IAS: Doppler flow studies indicate a PFO. Right Atrium: The right atrium is severely enlarged. Mitral Valve: Mitral valve appears normal. Moderate mitral regurgitation. No evidence of systolic flow reversal in the pulmonary veins. Aortic Valve: Mild aortic cusp calcification is noted. Aortic valve is tri-leaflet. No aortic valve regurgitation. Mild aortic valve stenosis. Tricuspid Valve: Normal tricuspid valve. Moderate tricuspid regurgitation. Pulmonic Valve: Pulmonary valve appears normal. No pulmonary regurgitation. Aorta: Severe atherosclerotic plaque is seen in the aorta. Atheroma in the aortic arch. The Attending Physician was present and personally reviewed the examination Procedure Staff Reading Group: [place] [facility] Card Lacer: Vu Gomez RDCS Ordering Physician: NIKKO ROCHE Nikko Roche [facility] CV ECHO PROCEDURES Final Result * CARDIOVERSION (11/29/2024 10:54 AM EDT) Anatomical Region Laterality Modality Other Narrative 12/02/2024 10:50 AM EDT Indication: Atrial Fibrillation. Performing physician: Jose Menjivar MD Victims Advocate Clerk/Specialist: None. Procedure: DC cardioversion. Informed consent was obtained from the patient. The patient was brought to the catholic priest and conscious sedation was given with versed 3 mg and fentanyl 75 mcg. Transesophageal echocardiogram was performed showing no evidence of thrombi in the left atrial appendage or left atrium. Biphasic direct external synchronized cardioversion was then performed using 360 J. The patient reverted to sinus rhythm. There were no apparent complications. he will be observed for 2 hours and then discharged to home. he will follow up in clinic for further management. Jose Menjivar MD Study Details Persistent atrial fibrillation (CMS/[facility]) [I48.19] Nikko Roche [facility] CV ELECTROPHYSIOLOGY PROCEDURES Final Result from Last 3 Months Insurance [employer] MEDICARE Care Teams Drill Press Operator Helper Relationship Specialty Start Date End Date Surya Hinton MD 3 [facility] PCP - General 05/18/22
--- OUTSIDE RECORDS SUMMARY | 2025-02-06 11:39 | XMS_ITS | Encounter Summary ---
Author Organization [facility] Address [address] [facility] [place] [address] Care Team Providers Care Leather Goods Sales Representative Name Role Phone Surya Hinton MD Unavailable Surya Hinton MD Primary Care Provider [phone] Zoila Fountain NP Unavailable [phone] Encounter Details Date Type Department Care Team (Late st Contact Info) Description 06/02/2023 Orders Only [facility] [address] [facility] [address] [place] [id number] A, Unknown Practice [address] [place], [place] [phone] Social History Tobacco Use Types Packs/Day Years [...] CI FM [address] [facility] [address] [place] [phone] Zoila Fountain, SENIOR SYSTEM OPERATOR [address] [facility] [address] [place] [address] documented as of this encounter Procedures Procedure Name Priority Date/Time Associated Diagnosis Comments VASC US CAROTID ARTERY DUPLEX BILATERAL Routine 06/01/2023 7:50 AM EST documented in this encounter Results * Vascular US carotid artery duplex bilateral (06/01/2023 7:50 AM EST) Anatomical Region Laterality Modality Neck Ultrasound us Unknown Practice A IMG US PROCEDURES Final Resul t documented in this encounter Visit Diagnoses Not on filedocumented in this encounter Care Teams Leather Goods Sales Representative Relationship Specialty Start Date End Date Surya Hinton MD [address] [facility] [address] [place] [address] PCP - [employer] 10/15/20 Surya Hinton MD [address] [facility] [address] [place] [address] PCP - General Family Medicine 11/22/22 Zoila Fountain NP [address] [facility] [address] [place] [address] PCP - [employer] 03/17/24 documented as of this encounter
--- OUTSIDE RECORDS SUMMARY | 2025-02-06 11:39 | XMS_ITS | Encounter Summary ---
Author Organization [facility] Address [address] [facility] [place] [address] Care Team Providers Care Continuity Writer Name Role Phone Surya Hinton MD Unavailable Surya Hinton MD Primary Care Provider [phone] Zoila Fountain NP Unavailable [phone] Encounter Details Date Type Department Care Team (Late Contact Info) Description 12/04/2023 Abstract [facility] [address] [facility] [address] [place] [phone] Surya Hinton MD 112 [facility] [address] [place] [address] Social History Tobacco Use Types Packs/Day Years [...] Office Visit [facility] [address] [facility] [address] [place] [phone] Zoila Fountain NP [address] [facility] [address] [place] [address] documented as of this encounter Visit Diagnoses Not on filedocumented in this encounter Care Teams Continuity Writer Relationship Specialty Start Date End Date Surya Hinton MD [address] [facility] [address] [place] [address] PCP - [place] [employer] 10/15/20 Surya Hinton MD [address] [facility] [address] [place] [address] PCP - General Family Medicine 11/22/22 Zoila Fountain, MAINTENANCE CONTROLLER [address] [facility] [address] [place] [address] PCP - [place] Commercial 03/17/24 documented as of this encounter
--- OUTSIDE RECORDS SUMMARY | 2025-02-06 11:39 | XMS_ITS | Clinical Summary ---
Author Organization [facility] Address [id number] [address] [place] [address] Care Team Providers Care Hospital Corpsman Name Role Phone Unavailable Primary Care Provider Unavailabl e Social History Tobacco Use Types Packs/Day Years Used Date Smoking Tobacco: Never Assessed Childcare Answer Date Recorded Childcare Unknown 12/26/2018 Employment Answer Date Recorded Employment Unknown 12/26/2018 Sex and Gender Information Value Date Recorded Sex Assigned at Not on file Legal Sex Male 11:29 AM EDT Gender Identity Not on file Sexual Orientation Not on file Plan of Treatment Health Maintenance Due Date Last Done Comments Depression Screening 1965 Tobacco Screening 1965 Adult BMI Screening 1971 DTaP,Tdap and Td Vaccines (1 - Tdap) 1972 Zoster (Shingles) Vaccine (1 of 2) 2003 Fall Risk Screening 2018 Influenza Vaccine 03/17/2025 Medical Devices Not on file
--- OUTSIDE RECORDS SUMMARY | 2025-02-06 11:39 | XMS_ITS | Encounter Summary ---
Author Organization [facility] Address [address] [facility] [place] [address] Care Team Providers Care Billiard Table Mechanic Name Role Phone Surya Hinton MD Unavailable Surya Hinton MD Primary Care Provider [phone] Zoila Fountain NP Unavailable [phone] Encounter Details Date Type Department Care Team (Late Contact Info) Description 03/15/2024 Abstract [facility] [address] [facility] 110 [place] [phone] Surya Hinton MD [address] [facility] 110 [place] [address] Social History Tobacco Use Types Packs/Day Years [...] Office Visit [facility] [address] [facility] [address] [place] [phone] Zoila Fountain NP [address] [facility] [address] [place] [address] documented as of this encounter Visit Diagnoses Not on filedocumented in this encounter Care Teams Billiard Table Mechanic Relationship Specialty Start Date End Date Surya Hinton MD [address] [facility] 110 [place] [address] PCP - [place] [employer] 10/15/20 Surya Hinton MD [address] [facility] [address] [place] [address] PCP - General Family Medicine 11/22/22 Zoila Fountain, BACKUP ENGINEER [address] [facility] 110 [place] [address] PCP - [place] [employer] 03/17/24 documented as of this encounter
--- OUTSIDE RECORDS SUMMARY | 2025-02-06 11:39 | XMS_ITS | Encounter Summary ---
Author Organization [facility] Address [address] [facility] [place] [address] Care Team Providers Care Braker Passenger Train Name Role Phone Surya Hinton MD Unavailable Surya Hinton MD Primary Care Provider [phone] Zoila Fountain NP Unavailable [phone] Encounter Details Date Type Department Care Team (Late Contact Info) Description 04/19/2023 Abstract [facility] [address] [facility] 110 [place] [phone] Surya Hinton MD [address] [facility] 110 [place] [address] Social History Tobacco Use Types Packs/Day Years [...] Office Visit [facility] [address] [facility] 110 [place] [phone] Zoila Fountain NP [address] [facility] [address] [place] [address] documented as of this encounter Visit Diagnoses Not on filedocumented in this encounter Care Teams Braker Passenger Train Relationship Specialty Start Date End Date Surya Hinton MD [address] [facility] 110 [place] [address] PCP - [place] [employer] 10/15/20 Surya Hinton MD [address] [facility] [address] [place] [address] PCP - General Family Medicine 11/22/22 Zoila Fountain, PUBLIC SPEAKING PROFESSOR [address] [facility] 110 [place] [address] PCP - [place] [employer] 03/17/24 documented as of this encounter
--- OUTSIDE RECORDS SUMMARY | 2025-02-06 11:39 | XMS_ITS | Encounter Summary ---
Author Organization [facility] Address [address] [facility] [place] [address] Care Team Providers Care Still Operator Batch Or Continuous Name Role Phone Surya Hinton MD Primary Care Provider [phone] Zoila Fountain ANESTHESIOLOGIST/PHYSICIAN Unavailable [phone] Encounter Details Date Type Department Care Team ([facility] Contact Info) Description 09/13/2024 Abstract [facility] [address] [facility] 110 [place] [phone] Surya Hinton MD [address] [facility] 110 [place] [address] Social History Tobacco Use Types Packs/Day Years [...] Visit [facility] [address] [facility] [address] [place] [phone] Zoila Fountain NP [address] [facility] 110 [place] [address] documented as of this encounter Visit Diagnoses Not on filedocumented in this encounter Care Teams Still Operator Batch Or Continuous Relationship Specialty Start Date End Date Surya Hinton MD [address] [facility] 110 [place] [address] PCP - General Family Medicine 11/22/22 Zoila Fountain NP 112 [facility] [address] [place] [address] PCP - [place] [employer] 03/17/24 documented as of this encounter
--- OUTSIDE RECORDS SUMMARY | 2025-02-06 11:39 | XMS_ITS | Encounter Summary ---
Author Organization [facility] Address [address] [place] [address] Care Team Providers Care Photoengraving Proofer Apprentice Name Role Phone Surya Hinton MD Primary Care Provider [phone] Reason for Visit * Reason Comments Med Refill Encounter Details Date Type Department Care Team (Late st Contact Info) Description 03/15/2023 Refill [facility] [address] [place] [address] Judi Wilson MD [address] [facility] [place] [address] Benign hypertensive heart disease without congestive heart failure Social History Tobacco Use Types Packs/Day Years Used Date Smoking Tobacco: Former Cigarettes Smokeless Tobacco: Never Alcohol Use Standard Drinks/Week Comments Not Currently 0 (1 standard drink = 0.6 oz pur e alcohol) PHQ-2 Answer Date Recorded Patient Health Questionnaire-2 Score 0 08/17/2022 Sex and Gender Information Value Date Recorded Sex Assigned at Male 05/18/2022 9:32 AM EDT Legal Sex Male 10:16 PM EDT Gender Identity Male 05/18/2022 9:32 AM EDT Sexual Orientation Heterosexual or Straight 08/2021 9:32 AM EDT documented as of this encounter Plan of Treatment Upcoming Encounters Date Type Department Care Team (Late st Contact Info) Description 04/03/2025 2:00 PM EDT Office Visit [facility] [address] [place] [address] Reed Estrella MD [address] [place] [address] documented as of this encounter Visit Diagnoses Diagnosis Benign hypertensive heart disease without congestive heart failure Benign hypertensive heart disease without heart failure documented in this encounter Care Teams Photoengraving Proofer Apprentice Relationship Specialty Start Date End Date Surya Hinton MD [address] [place] [address] PCP - General 05/18/22 documented as of this encounter
--- OUTSIDE RECORDS SUMMARY | 2025-02-06 11:39 | XMS_ITS | Encounter Summary ---
Author Organization [facility] Address [address] [place] [facility] [place] [address] Care Team Providers Care Melter Supervisor Oxygen Furnace Name Role Phone Surya Hinton MD Unavailable Surya Hinton MD Primary Care Provider [phone] Zoila Fountain NP Unavailable [phone] Encounter Details Date Type Department Care Team (Late Contact Info) Description 06/02/2023 Clinisync Result Encounter [facility] External Department Unsolicited [...] Visit [facility] [address] [facility] 110 [place] [address] Zoila Fountain MATERIAL REQUIREMENTS WORKER [address] [facility] 110 [place] [address] documented as of this encounter Procedures Procedure Name Priority Date/Time Associated Diagnosis Comments CA ECHO DOPPLER COMPLETE 06/02/2023 2:39 PM EST documented in this encounter Results * CA ECHO DOPPLER COMPLETE (06/02/2023 2:39 PM EST) Anatomical Region Laterality Modality Other 06/02/2023 2:39 PM EST Narrative 06/02/2023 2:39 [place] [address] Cardiology Report Signed Patient: LISA JURADO MR#: [id number] : 1955 Acct:[id number] Age/Sex: 68 / M ADM Date: 06/01/23 Loc: CARD Attending Dr: EDISON HOPPER APRN Ordering Physician: EDISON HOPPER APRN Date of Service: 06/01/23 Procedure(s): CA echo doppler complete Accession Number(s): [id number] cc: Patient Name: LISA JURADO MR#: [id number] : 1955 Exam Date: 06/01/2023 Ordering Doctor: EDISON HOPPER MANAGED SECURITY SALES CONSULTANT ECHOCARDIOGRAM REPORT PROCEDURE: CARDIO PULMONARY ECHOCARDIO M/2D COMP INDICATIONS: Syncope and collapse, coronary artery disease, CABGx6, [place], hypertension, diabetes COMPARISON: None. DESCRIPTION: COMPLETE ECHOCARDIOGRAM Real-time transthoracic echocardiography with 2D, M-mode, spectral and color flow Doppler performed. QUALITY: Technical quality was adequate. LEFT VENTRICLE: Normal chamber size. Thickened septal wall. LV EF: Global left ventricular systolic function is difficult to assess but appears preserved; visually estimated ejection fraction is 55 to 60%. DIASTOLIC: Normal diastolic function. ATRIAL SEPTUM: Visually appears intact. LEFT ATRIUM: Moderate dilatation. RIGHT ATRIUM: Mild dilatation. RIGHT VENTRICLE: Normal chamber size. Normal right ventricular systolic function. TRICUSPID VALVE: Normal mobility and thickness. Mild regurgitation. Doppler studies reveal moderately (45-60) elevated right sided pressures. RVSP 46 mmHg MITRAL VALVE: Mildly thickened with normal mobility. No evidence of mitral valve stenosis. Trivial mitral regurgitation. AORTIC VALVE: Normal trileaflet appearance. Moderately calcified aortic valve. No evidence of aortic valve stenosis. No aortic regurgitation. AORTIC ROOT: Normal diameter and appearance. PULMONIC VALVE: Normal thickness and mobility. No stenosis. Mild regurgitation. PERICARDIUM: No evidence of pericardial effusion. IVC: IVC is dilated (2.6 cm) with no collapse. CONCLUSION: 1. Normal left ventricular systolic function is difficult to assess but appears preserved; visually estimated ejection fraction is 55 to 60% 2. The right ventricle is normal in size and systolic function 3. Biatrial enlargement 4. Normal diastolic function 5. Mild tricuspid regurgitation; moderately elevated right ventricular systolic pressure 6. Mild pulmonic regurgitation Adult Echocardiography Procedure Report Left Ventricle LVEDD (3.7 - 5.6 cm): 5.42 cm LVESD (2.2 - 4.0 cm): 3.07 cm LVIVS thickness (0.6 - 1.2 cm): 1.68 cm LVPW thickness (0.5 - 1.0 cm): 0.94 cm e': 0.11 m/s E - e': 4.15 LVOT Max Gradient: 2.23 mm[Hg], 2.15 mm[Hg] LVOT Area (cm2): 0.73 m/s, 0.75 m/s Peak Velocity (LVOT): 0.73 m/s, 0.75 m/s Mean Velocity (LVOT): 0.51 m/s LVOT Diameter 2.58 cm Left Atrium LA Volume Index (2D A2C): 49.37 ml/m2 Left Atrium Systolic Dimension: 4.34 cm Mitral Valve MV E to A Ratio: 0.80 Mitral Valve A-Wave Peak Velocity: 0.59 m/s Mitral Valve E-Wave Peak Velocity: 0.48 m/s Right Ventricle Aorta AO Root Diam: 3.70 cm Ascending Ao Diam: 3.29 cm Aortic Valve AoV Area (Peak Josh): 3.21 cm2, 3.29 cm2, 3.28 cm2, 3.36 cm2 AoV Area (VTI): 4.01 cm2, 4.34 cm2 Peak Velocity(Antegrade Flow): 1.16 m/s, 1.19 m/s, 1.22 m/s Peak Gradient(Antegrade Flow): 5.42 mm[Hg], 5.69 mm[Hg], 5.93 mm[Hg] Mean Velocity(Antegrade Flow): 0.89 m/s, 0.80 m/s, 0.95 m/s Mean Gradient(Antegrade Flow): 3.41 mm[Hg], 3.07 mm[Hg], 3.82 mm[Hg] Velocity Time Integral: 20.72 cm, 22.83 cm, 23.74 cm Tricuspid Valve Peak Velocity (Regurgitant Flow): 2.59 m/s, 2.80 m/s Pulmonic Valve Peak Velocity: 0.76 m/s Peak Gradient: 2.90 mm[Hg], 1.79 mm[Hg] Right Atrium Right Atrium Systolic Pressure: 61.07 ml, 61.07 ml Dictated by: Judi Wilson M.D. on 06/02/2023 at 14:35 Approved by: Judi Wilson M.D. on 06/02/2023 at 14:39 Dictated By: Judi Wilson M.D. Signed By: 06/02/23 1440 DD/ 1439 TD/TT: Health Care Facility Administrator: Procedure Note Radiology, Radiologist, MD - 06/02/2023 [place] [address] Cardiology Report Signed Patient: LISA JURADO LMR#: [id number] : 1955cct:[id number] Age/Sex: 68 / MADM Date: 06/01/23 Loc: CARD Attending Dr: EDISON HOPPER APRN Ordering Physician: EDISON HOPPER APRN Date of Service: 06/01/23 Procedure(s): CA echo doppler complete Accession Number(s): [id number] cc: Patient Name: LISA JURADO MR#: [id number] : 1955 Exam Date: 06/01/2023 Ordering Doctor: EDISON HOPPER CNP ECHOCARDIOGRAM REPORT PROCEDURE: CARDIO PULMONARY ECHOCARDIO M/2D COMP INDICATIONS: Syncope and collapse, coronary artery disease, CABGx6,[place], hypertension, diabetes COMPARISON: None. DESCRIPTION: COMPLETE ECHOCARDIOGRAM Real-time transthoracic echocardiography with 2D, M-mode, spectral and color flow Dopplerperformed. QUALITY: Technical quality was adequate. LEFT VENTRICLE: Normal chamber size. Thickened septal wall. LV EF: Global left ventricular systolic function is difficult toassess but appears preserved; visually estimated ejection fraction is 55 to 60%. DIASTOLIC: Normal diastolic function. ATRIAL SEPTUM: Visually appears intact. LEFT ATRIUM: Moderate dilatation. RIGHT ATRIUM: Mild dilatation. RIGHT VENTRICLE: Normal chamber size. Normal right ventricularsystolic function. TRICUSPID VALVE: Normal mobility and thickness. Mild regurgitation. Doppler studies reveal moderately (45-60) elevated right sided pressures.RVSP 46 mmHg MITRAL VALVE: Mildly thickened with normal mobility. No evidence of mitral valve stenosis. Trivial mitral regurgitation. AORTIC VALVE: Normal trileaflet appearance. Moderately calcifiedaortic valve. No evidence of aortic valve stenosis. No aortic regurgitation. AORTIC ROOT: Normal diameter and appearance. PULMONIC VALVE: Normal thickness and mobility. No stenosis. Mild regurgitation. PERICARDIUM: No evidence of pericardial effusion. IVC: IVC is dilated (2.6 cm) with no collapse. CONCLUSION: 1. Normal left ventricular systolic function is difficult to assess but appears preserved; visually estimated ejection fraction is 55 to 60% 2. The right ventricle is normal in size and systolic function 3. Biatrial enlargement 4. Normal diastolic function 5. Mild tricuspid regurgitation; moderately elevated right ventricular systolic pressure 6. Mild pulmonic regurgitation Adult Echocardiography Procedure Report Left Ventricle LVEDD (3.7 - 5.6 cm): 5.42 cm LVESD (2.2 - 4.0 cm): 3.07 cm LVIVS thickness (0.6 - 1.2 cm): 1.68 cm LVPW thickness (0.5 - 1.0 cm): 0.94 cm e': 0.11 m/s E - e': 4.15 LVOT Max Gradient: 2.23 mm[Hg], 2.15 mm[Hg] LVOT Area (cm2): 0.73 m/s, 0.75 m/s Peak Velocity (LVOT): 0.73 m/s, 0.75 m/s Mean Velocity (LVOT): 0.51 m/s LVOT Diameter 2.58 cm Left Atrium LA Volume Index (2D A2C): 49.37 ml/m2 Left Atrium Systolic Dimension: 4.34 cm Mitral Valve MV E to A Ratio: 0.80 Mitral Valve A-Wave Peak Velocity: 0.59 m/s Mitral Valve E-Wave Peak Velocity: 0.48 m/s Right Ventricle Aorta AO Root Diam: 3.70 cm Ascending Ao Diam: 3.29 cm Aortic Valve AoV Area (Peak Josh): 3.21 cm2, 3.29 cm2, 3.28 cm2, 3.36 cm2 AoV Area (VTI): 4.01 cm2, 4.34 cm2 Peak Velocity(Antegrade Flow): 1.16 m/s, 1.19 m/s, 1.22 m/s Peak Gradient(Antegrade Flow): 5.42 mm[Hg], 5.69 mm[Hg], 5.93 mm[Hg] Mean Velocity(Antegrade Flow): 0.89 m/s, 0.80 m/s, 0.95 m/s Mean Gradient(Antegrade Flow): 3.41 mm[Hg], 3.07 mm[Hg], 3.82 mm[Hg] Velocity Time Integral: 20.72 cm, 22.83 cm, 23.74 cm Tricuspid Valve Peak Velocity (Regurgitant Flow): 2.59 m/s, 2.80 m/s Pulmonic Valve Peak Velocity: 0.76 m/s Peak Gradient: 2.90 mm[Hg], 1.79 mm[Hg] Right Atrium Right Atrium Systolic Pressure: 61.07 ml, 61.07 ml Dictated by: Judi Wilson M.D. on 06/02/2023 at 14:35 Approved by: Judi Wilson M.D. on 06/02/2023 at 14:39 Dictated By: Judi Wilson M.D. Signed By:06/02/23 1440 DD/ 1439 TD/TT: Health Care Facility Administrator: Generic External Data Provider [facility] Final Result documented in this encounter Visit Diagnoses Not on filedocumented in this encounter Care Teams Melter Supervisor Oxygen Furnace Relationship Specialty Start Date End Date Surya Hinton MD [address] [facility] 110 [place] [address] PCP - [place] [employer] 10/15/20 Surya Hinton MD [address] [facility] [address] [place] [address] PCP - General Family Medicine 11/22/22 Zoila Fountain NP [address] [facility] [address] [place] [address] PCP - [place] [employer] 03/17/24 documented as of this encounter
--- OUTSIDE RECORDS SUMMARY | 2025-02-06 11:39 | XMS_ITS | Encounter Summary ---
Author Organization [facility] Address [address] [facility] [place] [address] Care Team Providers Care Respiratory Care Instructor Name Role Phone Surya Hinton MD Unavailable Surya Hinton MD Primary Care Provider [phone] Zoila Fountain NP Unavailable [phone] Encounter Details Date Type Department Care Team (Late Contact Info) Description 11/15/2023 Abstract [facility] [address] [facility] 110 [place] [phone] Surya Hinton MD 112 [facility] 110 [place] [address] Social History Tobacco Use Types Packs/Day Years [...] Office Visit [facility] [address] [facility] 110 [place] [phone] Zoila Fountain NP [address] [facility] [address] [place] [address] documented as of this encounter Visit Diagnoses Not on filedocumented in this encounter Care Teams Respiratory Care Instructor Relationship Specialty Start Date End Date Surya Hinton MD [address] [facility] [address] [place] [address] PCP - [place] [employer] 10/15/20 Surya Hinton MD [address] [facility] [address] [place] [address] PCP - General Family Medicine 11/22/22 Zoila Fountain, CLOD PULLER [address] [facility] 110 [place] [address] PCP - [place] [employer] 03/17/24 documented as of this encounter
--- OUTSIDE RECORDS SUMMARY | 2025-02-06 11:39 | XMS_ITS | Encounter Summary ---
Author Organization [facility] Address [address] [facility] [place] [address] Care Team Providers Care Dispatcher Clerk Name Role Phone Surya Hinton MD Unavailable Surya Hinton MD Primary Care Provider [phone] Zoila Fountain NP Unavailable [phone] Encounter Details Date Type Department Care Team (Late Contact Info) Description 01/30/2024 Abstract [facility] [address] [facility] 110 [place] [phone] Surya Hinton MD 112 [facility] 110 [place] [address] Social History Tobacco Use Types Packs/Day Years [...] Office Visit [facility] [address] [facility] [address] [place] [phone] Zoila Fountain NP [address] [facility] [address] [place] [address] documented as of this encounter Visit Diagnoses Not on filedocumented in this encounter Care Teams Dispatcher Clerk Relationship Specialty Start Date End Date Surya Hinton MD [address] [facility] [address] [place] [address] PCP - [place] [employer] 10/15/20 Surya Hinton MD [address] [facility] [address] [place] [address] PCP - General Family Medicine 11/22/22 Zoila Fountain, LENS DOTTER [address] [facility] [address] [place] [address] PCP - [place] [employer] 03/17/24 documented as of this encounter
--- OUTSIDE RECORDS SUMMARY | 2025-02-07 06:38 | XMS_ITS | CCD ---
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 Name Role Phone PHYSICIAN, DEFAULT Unavailable Unavailable PHYSICIAN, DEFAULT Unavailable Unavailable NAHUN JACKSON Unavailable Unavailable Pro, Spencer Jo Unavailable Unavailable Unavailable FIORELLA BRONSON [...] Unavailable Spencer Mast MD Primary Care Provider MD Spencer Mast Primary Care Provider MD Jagdeep Stiles II Attending Provider MD Spencer Mast Primary Care Provider MD Jagdeep Stiles II Attending Provider [phone] MD Davide Cobb Attending Provider Zoila Fountain NP Unavailable Pro MEDEL Spencer Jo Primary Care Provider Bennett Leidy DE LA FUENTE Attending Provider [phone] ProSpencer Primary Care Unavailable Jagdeep Stiles II Admitting UnavailJagdeep Gong II Attending Unavailabl e Bennett, Leidy D Attending Unavailable Bennett, Leidy D Admitting Unavailable Spencer Mast Primary Care Unavailable Bennett, Leidy D Admitting Unavailable Bennett, Leidy D Attending Unavailable Spencer Mast Primary Care Unavailable Spencer Mast Primary Care Unavailable Bennett, Leidy D Admitting Unavailable Bennett, Leidy D Attending Unavailable Spencer Mast Primary Care Unavailable Bennett, Lediy D Admitting Unavailable Bennett, Leidy D Attending Unavailable Spencer Mast Primary Care Unavailable Davide Cobb Admitting Unavailable Davide Cobb Attending Unavailable OZIEL SAGE Attending Unavailable BENNETT, LEIDY Referring Unavailable BLACKSTONOZIEL Attending Unavailable BENNETT, LEIDY Referring Unavailable JETHRO WARE Attending Unavailable BENNETT, LEIDY Referring Unavailable OZIEL SAGE Attending Unavailable BENNETT, LEIDY Referring Unavailable GONZALEZTONOZIEL Attending Unavailable BENNETT, LEIDY Referring Unavailable BLACKSTONOZIEL Attending Unavailable BENNETT, LEIDY Referring Unavailable PANDA, ZOILA M Attending Unavailable PANDA, ZOILA M Attending Unavailable PANDA, ZOILA M Attending Unavailable PANDA, ZOILA M Attending Unavailable PANDA, ZOILA M Attending Unavailable PANDA, ZOILA M Attending Unavailable PANDA, ZOILA M Attending Unavailable PANDA, ZOILA M Attending Unavailable PANDA, ZOILA M Attending Unavailable PANDA, ZOILA M Attending Unavailable OZIEL SAGE T Attending Unavailable BENNETT, LEIDY Referring Unavailable JETHRO WARE Attending Unavailable BENNETT, LEIDY Referring Unavailable LEIDY JACOME Attending Unavailable BENNETT, LEIDY Referring Unavailable DARRYL MONCADA Attending Unavailable LEIDY BENNETT Referring Unavailable DARRYL MONCADA Attending Unavailable LEIDY BENNETT Referring Unavailable ZOILA FOUNTAIN Attending Unavailable JUDI WILSON Attending Unavailable NIKKO ROCHE Referring Unavailable ANGELY MUNOZ Attending Unavailable NIKKO ROCHE Attending Unavailable NIKKO ROCHE Attending Unavailable CUPID, MUSEUM DOCENT Admitting Unavailable CUPDONNA, MUSEUM DOCENT Attending Unavailable JUDI WILSON Attending Unavailable JUDI WILSON Attending Unavailable REBEKAH, MUSEUM DOCENT Referring Unavailable MUSA RAHMAN Referring Unavailable Medications Current Medications Medication Drug Class(es) Dates Sig (Normalized) Sig (Original) [id number] actuat albuterol 0.09 mg/actuat metered dose [...] days. 20 tablet 0 08/29/2023 09/08/2023 Active apixaban 5 mg oral tablet (4 sources) Factor Xa Inhibitor Start: 11-13-2024 take 1 tablet by mouth in the morning apixaban (Eliquis) 5 MG tablet Take 5 mg by mouth in the morning and 5 mg in the evening. 11/13/2024 Active Aspir-81 81 MG (2 sources) take [...] (Lipitor) 80 MG tablet Indications: Atherosclerosis of [place] coronary artery with angina pectoris, unspecified whether [place] or transplanted heart (CMS/HCC) Take 1 tablet (80 mg) by mouth in the morning. 100 tablet 3 11/15/2023 Active Start: 07-31-2023 take 1 tablet by nadja th in the morning atorvastatin (Lipitor) 80 MG tablet Indications: Atherosclerosis of [place] coronary artery with angina pectoris, unspecified whether [place] or transplanted heart (CMS/HCC) TAKE 1 TABLET BY MOUTH IN THE MORNING 100 tablet 3 07/31/2023 Active Start: 10-02-2019 take 1 tablet by nadja th once daily Atorvastatin Calcium 80 MG Oral Tablet TAKE 1 TABLET DAILY. Quantity: 0 Refills: 0 Ordered: 20-Jun-2020 DO Start : 02-Oct-2019 Active Atorvastatin Jeferson cium Active carvedilol 25 mg oral tablet (20 sources) alpha-Adrenergic Yenni, beta-Adrenergic Yenni Start: 08-31-2023 End: 11-14-2024 take 1 tablet by mouth in the morning carvedilol (Coreg) 25 MG tablet Indications: Primary hypertension (CMS/HCC) Take 1 tablet (25 mg) by mouth in the morning and 1 tablet (25 mg) before bedtime. 180 tablet 3 11/15/2023 Active take 1 tablet by mouth in [...] Indications: Hypertension secondary to other renal disorders TAKE ONE [...] unspecified vessel or lesion type, unspecified whether [place] or transplanted heart (CMS/HCC) Take 1 tablet (10 mg) by mouth Daily 100 tablet 3 11/15/2023 Active Start: 03-10-2023 take 1 tablet by nadja th in the morning dapagliflozin (Farxiga) 10 MG Indications: Coronary artery disease without angina pectoris, unspecified vessel or lesion type, unspecified whether [place] or transplanted heart (CMS/HCC) Take 1 tablet [...] 12 hrs for 7 days May, Active ezetimibe 10 mg oral tablet (4 sources) Dietary Cholesterol Absorption Inhibitor Start: 11-13-2024 End: 11-13-2025 take 1 tablet by mouth in the morning ezetimibe (Zetia) 10 MG tablet Take 10 mg by mouth in the morning. 11/13/2024 11/13/2025 Active fluticasone propionate 0.05 mg/actuat metered dose nasal spray (2 sources) Corticosteroid Start: 06-14-2017 take 1 spray(s) nasal route once daily Fluticasone Propionate 50 MCG/ACT 1 spray in each nostril Nasally Once a day for 21 days May, Active furosemide 40 mg oral tablet (7 sources) Loop Diuretic Start: 11-13-2024 End: 11-08-2025 take 1 tablet by mouth in the morning furosemide (Lasix) 40 MG tablet Take 40 mg by mouth in the morning. 11/13/2024 11/08/2025 Active Start: 04-19-2023 End: 04-18-2024 furosemide (Lasix) 40 MG tab let Take 20 mg by mouth in the [...] 17-Jun-2020 DO Start : 10-Sep-2019 Active Isosorbide [place] itrate ER Active lisinopril 40 mg oral tablet (20 sources) Angiotensin Converting Enzyme Inhibitor Start: 08-31-2023 End: 11-14-2024 take 1 tablet by mouth once daily lisinopril 40 MG tablet Indications: Primary hypertension (CMS/HCC) Take 1 tablet (40 mg) by mouth Daily 90 tablet 3 11/15/2023 Active Start: 02-15-2023 take 1 tablet by [...] microalbuminuria, without long-term current use of insulin ([facility]) Take 1 tablet (7 mg) by mouth in the morning. Take before meals. 90 tablet 3 11/15/2023 Active take 1 tablet by mouth before [...] mg oral capsule (20 sources) alpha-Adrenergi c Yenni Start: 08-31-2023 take 1 capsule by mouth [...] Active Start: 12-16-2019 take 1 capsule by [facility] once daily at bedtime Terazosin HCl [...] Documented Da te Episodic/Chronic Acute myocardial infarction (20 sources) Myocardial infarction; Translations: [Non-ST elevation (NSTEMI) myocardial infarction] Onset: 6 02-16-2023 Chronic Cardiac dysrhythmias (8 sources) Paroxysmal atrial fibrillation; Translations: [Unspecified atrial fibrillation] Onset: Chronic Chronic kidney disease (2 sources) Chronic [...] without angina pectoris] Onset: 3 02-14-2023 Chronic Congestive heart failure; nonhypertensive (2 sources) Acute diastolic (congestive) heart failure; Translations: [Acute diastolic (congestive) heart failure] Onset: 5 Chronic Coronary atherosclerosis and other heart disease (20 sources) Coronary arteriosclerosis; Translations: [Coronary atherosclerosis of unspecified type of vessel, [place] or graft] Onset: 2 02-14-2023 Chronic Diabetes mellitus with complications (20 sources) Disorder of kidney due to diabetes mellitus; Translations: [Type 2 diabetes mellitus with diabetic nephropathy] Onset: 3 02-14-2023 Chronic Diabetes mellitus without complication (20 sources) Type 2 diabetes mellitus; Translations: [Diabetes mellitus without mention of complication, type II or unspecified type, not stated as uncontrolled] Onset: 2 02-14-2023 Chronic Disorders of lipid metabolism (20 sources) Hyperlipidemia; Translations: [Other and unspecified hyperlipidemia] Onset: 6 02-16-2023 Chronic Esophageal disorders (20 sources) Gastroesophageal reflux disease without esophagitis; Translations: [Gastro-esophageal reflux disease without esophagitis] Onset: 6 02-16-2023 Chronic Essential hypertension (20 sources) Benign essential hypertension; Translations: [Benign essential hypertension] Onset: 2 Chronic Heart valve disorders (2 sources) Nonrheumatic mitral (valve) insufficiency; Translations: [Nonrheumatic mitral (valve) insufficiency] Onset: 5 Chronic Hyperplasia of prostate (20 sources) Benign prostatic hyperplasia; Translations: [Benign prostatic hyperplasia without lower urinary tract symptoms] Onset: 3 02-14-2023 Chronic Hypertension with complications and secondary hypertension (20 sources) Renal hypertension; Translations: [Hypertension secondary to other renal disorders] Onset: 3 02-16-2023 Chronic Osteoarthritis (20 sources) Primary gonarthrosis, bilateral; Translations: [Bilateral primary osteoarthritis of knee] Onset: 6 02-16-2023 Chronic Other gastrointestinal disorders (2 sources) Passing flatus; Translations: [Flatulence] 11-26-2024 Episodic Other infections; including parasitic (20 sources) Late effects of other and unspecified infectious and parasitic diseases; 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] Onset: 3 02-14-2023 Chronic Other infections; including parasitic (20 sources) Sequelae of infectious disease; Translations: [Sequelae of other specified infectious and parasitic diseases] Onset: 2 02-16-2023 Chronic Other lower respiratory disease (2 sources) Cough; Translations: [Cough] Episodic Other lower respiratory disease (2 sources) Dyspnea; Translations: [Dyspnea] Episodic Other lower respiratory disease (2 sources) Other forms of dyspnea; Translations: [Other forms of dyspnea] Onset: 5 Episodic Other nervous system disorders (20 sources) Chronic pain; Translations: [Other chronic pain] Onset: 4 03-13-2024 Chronic Other nervous system disorders (1 source) Other chronic pain; Translations: [Other chronic pain] 03-13-2024 Chronic Other non-traumatic joint disorders (4 sources) Pain in right knee; Translations: [Pain in joint, lower leg] 08-31-2023 Episodic Other nutritional; endocrine; and metabolic disorders (4 sources) Obesity; Translations: [Obesity, unspecified] Chronic Other nutritional; endocrine; and metabolic disorders (20 sources) Hypomagnesemia; Translations: [Hypomagnesemia] Onset: 3 02-14-2023 Chronic Other nutritional; endocrine; and metabolic [...] hypertension; Translations: [Pulmonary hypertension, unspecified] 08-01-2024 Chronic Residual codes; unclassified (2 sources) Insomnia; Translations: [Insomnia, unspecified] 11-26-2024 Episodic Residual codes; unclassified (2 sources) Localized edema; Translations: [Localized edema] Onset: Episodic Screening and history of mental health and substance abuse codes (4 sources) Ex-smoker; Translations: [Personal history of tobacco use] Episodic Comment on above: Quit 43 years ago; Sprains and strains (20 sources) Shoulder strain; Translations: [Strain of unspecified muscle, fascia and tendon at shoulder and upper arm level, right arm, initial encounter] Onset: 5 07-09-2024 Episodic Unclassified (3 sources) CHRN KIDNEY [...] EHR Cmte Other aftercare (1 source) Other intermodal customer service (current) drug therapy; Translations: [[facility] LIVING CURRENT DRUG THERAPY] Onset: 01-31-2022 Episodic Other aftercare (1 source) nursing home (current) use of aspirin; Translations: [SCHEDULER CONVEYOR CURRENT USE OF ASPIRIN] Onset: 01-31-2022 Episodic [...] p per request of Phys. EHR Cmte Unclassified (1 source) CHRN KIDNEY DISEASE STG 3 UNSP; Translations: [CHRN KIDNEY DISEASE STG 3 UNSP] Onset: 09-08-2022 Unclassified (1 source) Contact with and (suspected) exposure to covid-19 Z20.822 Unclassified (2 sources) Acute pain of right knee 05-02-2024 Unclassified (1 source) Resistant hypertension; Translations: [Resistant hypertension] Onset: 10-04-2024 Results Test Name Value Interpretation Reference Range Facility Office Visiton 01-06-2025 Follow-up visit [id number] Vir[address] 1955 M Date Provider Department Center 01/06/2025 [id number] MUNOZ [facility] Family History Problem Relation Age of Onset Coronary artery disease Mother Coronary artery disease Father Coronary artery disease Brother ALS Brother Stroke Brother Family Status - Relation Status Age at Mother Father Sister Alive Brother Level of Service:71925 [place] OFFICE/OUTPATIENT ESTABLISHED MOD MDM 30 MIN [facility] 36on 12-18-2024 36 RX for Xarelto sent to patient's pharmacy. Tried to contact patient and make him aware but his VM is not setup so I was unable to LM. [facility] 36 Patient called to cony motta you aware he does not want to take Eliquis anymore due to fatigue. Says he was just sitting this morning eating breakfast and his nose began to bleed. He said he's willing to try something else. Can I send RX for Xarelto 20mg daily? Please advise. Thanks. [facility] ITPon 12-18-2024 [place] [address] Cardiac Rehab Report Signed Patient: LISA JURADO MR#: [id number] : 1955 Acct:[id number] Age/Sex: 69 / M ADM Date: 12/18/24 Loc: CR Attending Dr: Judi Wilson M.D. Ordering Physician: Judi Wilson M.D. 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 Electronically Signed On 12-18-2024 16:43:09 EDT by Raphael Justin Dictated By: Raphael Justin D.O. Signed By: 12/18/24164212/18/241642 DD/ 1442 TD/TT: House Cleaner Supervisor: [facility] Radiology, Radiologist, - 12/19/2024 [place] [address] Cardiac Rehab Report Signed Patient: LISA JURADO MR#: [id number] : 1955 Acct:[id number] Age/Sex: 69 / M ADM Date: 12/18/24 Loc: CR Attending Dr: Judi Wilson M.D. Ordering Physician: Judi Wilson M.D. 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 Electronically Signed On 12-18-2024 16:43:09 EDT by Raphael Justin Dictated By: Raphael Justin D.O. Signed By: 12/18/24164212/18/241642 DD/ 1442 TD/TT: House Cleaner Supervisor: [place] [address] Cardiac Rehab Report Signed Patient: LISA JURADO MR#: [id number] : 1955 Acct:[id number] Age/Sex: 69 / M ADM Date: 12/18/24 Loc: CR Attending Dr: Judi Wilson M.D. Ordering Physician: Raphael Justin D.O. 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 Electronically Signed On 12-18-2024 16:35:58 EDT by Raphael Justin Dictated By: Raphael Justin D.O. Signed By: 12/18/24 1636 12/18/24 163 DD/ 1327 TD/TT: House Cleaner Supervisor: [facility] Radiology, Radiologist, MD - 12/19/2024 [place] [address] Cardiac Rehab Report Signed Patient: LISA JURADO MR#: [id number] : 1955 Acct:[id number] Age/Sex: 69 / M ADM Date: 12/18/24 Loc: CR Attending Dr: Judi Wilson M.D. Ordering Physician: Raphael Justin D.O. 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 Electronically Signed On 12-18-2024 16:35:58 EDT by Raphael Justin Dictated By: Raphael Justin D.O. Signed By: 12/18/24 1636 12/18/24 163 DD/ 1327 TD/TT: House Cleaner Supervisor[facility] Radiology Study observation (narrative) [facility] ITPOrdered By: Radiologist R adiology on 12-18-2024 [facility] Healthcare Work Phone: [facility] Healthcare Work Phone: ITPon 12-13-2024 Radiology Study observation (narrative) [facility] Healthcare Follow-Upon 12-12-2024 Follow-Up [id number] [address] 1955 M Date Provider Department Center 12/12/2024 271-DYLANRAMONPaulette, JUDI CARD [facility] Family History Problem Relation Age of Onset Coronary artery disease Mother Coronary artery disease Father Coronary artery disease Brother ALS Brother Stroke Brother Family Status - Relation Status Age at Mother Father Sister Alive Brother Level of Service:06714 [place] OFFICE/OUTPATIENT ESTABLISHED MOD MDM 30 MIN [facility] HPon 11-29-2024 HP H&P reviewed. The patient was examined and there are no changes to the H&P. New onset atrial fibrillation with rapid ventricular response. He is referred for CADEN guided cardioversion. He has been started on Eliquis. In addition he has at least moderate mitral regurgitation by recent transthoracic echocardiogram. We will also assess the severity of the mitral regurgitation by CDAEN. [facility] NURSNOTEon 11-29-2024 NURSNOTE Bedside swallow stud y completed and passed. RN educated pt on d/c instructions. This included: site care, limited physical activity, resume normal diet, future appointments, medications, and moderate sedation instructions. RN educated pt on when to notify physician and when to go to the hospital. RN encouraged pt to voice any questions or concerns, and answered any questions or concerns if pt verbalized. Pt was wheeled off of unit with all of belongings. [facility] Laboratory - Hematology and Cell countson 11-26-2024 HbA1c (Bld) [Mass fraction] 8.2 % [facility] No Panel Informationon 11-26 Interpretation and review of laboratory results Abnormal [facility] 36on 11-22-2024 36 Phone call for [facility] L ab 11/22/2024 Critical value on BNP of 2.595 please advise [facility] ALL BASIC METABOLIC PANELon 11-22-2024 Anion gap [Moles/Vol] 11.3 mmol/L NO [facility] Calcium [Mass/Vol] 8.5 mg/dL 8.5 - 10. 1 mg/dL [facility] Chloride [Moles/Vol] 105 mmol/L 98 - 10 7 mmol/L [facility] CO2 [Moles/Vol] 27.8 mmol/L 21.0 - 32.0 mmol/L [facility] Creatinine [Mass/Vol] 1.84 mg/dL High 0.70 - 1.30 mg/dL [facility] GFR/1.73 sq M.predicted CKD-EPI (S/P/Bld) [Vol rate/Area] 44 Low >=60 mL/min/1.[address] [facility] Glucose [Mass/Vol] 181 mg/dL High 74 - 106 mg/dL [facility] Potassium [Moles/Vol] 4.1 mmol/L 3.5 - 5.1 mmol/L [facility] Sodium [Moles/Vol] 140 mmol/L 136 - 145 mmol/L [facility] TBH EGFR-NON AF [place] 36 Low >=60 mL/min/1.[address] [facility] Urea nitrogen [Mass/Vol] 26 mg/dL High 7.0 - 18.0 mg/dL [facility] Urea nitrogen/Creatinine [Mass ratio] 14.1 mg/mg [facility] ALL PRO BNPon 11-22-2024 NT PRO B TYPE NATRIURETIC PEPT 2595 pg/mL Critically high NINF - 900.0 pg/mL [facility] Comment on above: RESULTS CALLED TO OLGUIN MA No Panel Informationon 11-22 Interpretation and review of laboratory results Abnormal [facility] HPon 11-13-2024 HP SUBJECTIVE Reason for Visit: Lisa Jurado is a 69 y.o. year old male patient being seen for 3 week follow-up visit. HPI: Lisa Jurado is a 69 y.o. year old male with significant medical history of CAD status post CABG 2015, hypertension, CKD ( initially seen in [address] Goff), CELESTINA, obesity, DM, and palpitations. 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 11/13/2024 office visit: The patient was seen and evaluated in the office today. He continues to report dyspnea on exertion with mild activity. He admits to taking furosemide inconsistently, approximately 2-3 times per week. I reinforced the importance of adherence to this medication regimen. He denies chest pain, palpitations, lightheadedness, or dizziness. On physical exam, there is 1-2+ bilateral lower extremity edema. Radial pulses were irregularly irregular on manual palpation. A 12-lead ECG was performed and revealed atrial fibrillation, presumed new-onset, as there is no documented history of atrial fibrillation in prior notes. His most recent ECG was over a year ago, and the last event monitor dated 05/17/2023 showed sinus rhythm with PACs. He was started on a DOAC today, and provided with a two-month free supply. A transesophageal echocardiogram with possible cardioversion is tentatively planned. The patient is currently in no acute distress and continues to deny any awareness of palpitations. 10/04/2024 office visit: The patient was seen and evaluated at the bedside in the office today. He reports new-onset bloating/distention and dyspnea on exertion. His initial blood pressure was in the 180s, with a repeat measurement in the 160s. He states that home readings can occasionally reach systolic values in the 240s. When asked about his last nephrology visit, he reported it has been a few years. I strongly encouraged him to reestablish care with his vallez filter operator. He otherwise denies chest pain, palpitations, lightheadedness, or dizziness. 02/26/2024 office visit (Dr. Wilson): Chief Complaint: Patient here for 1 mo follow up hypertension. Spironolactone was switched to chlorthalidone at last visit. Had BMP last week. BP was 162/117 1 hour after taking morning meds today. The other day when he checked his BP 1 hour after meds it was 80/60. He was lightheaded at that time. He says PCP stopped furosemide a few months ago. His blood pressure readings from home are scattered all over; for the most part they are between 1 30-1 70 systolic. There are occasional readings above or below this. He is asymptomatic apart from when his blood pressure is elevated he has headaches. Past Medical History: Diagnosis Date Chronic kidney disease Coronary artery disease Diabetes mellitus (CMS/HCC) Hypertension Sleep apnea Past Surgical History: Procedure Laterality Date APPENDECTOMY CARDIAC CATHETERIZATION CORONARY ARTERY BYPASS GRAFT HAND TENDON SURGERY HERNIA REPAIR KNEE ARTHROPLASTY Patient Active Problem List Diagnosis Stage 3 chronic kidney disease (CMS/HCC) Hypertension Type 2 diabetes mellitus with diabetic chronic kidney disease (CMS/HCC) Coronary artery disease Benign prostatic hyperplasia 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 Hypomagnesemia Sequelae of other specified infectious and parasitic diseases Hypertension secondary to other renal disorders Bilateral primary osteoarthritis of knee Diabetic renal disease (CMS/HCC) Gastro-esophageal reflux disease without esophagitis Hyperlipidemia, unspecified Muscle weakness (generalized) Non-ST elevation (NSTEMI) myocardial infarction (CMS/HCC) Post-acute COVID-19 syndrome Adenomatous polyp of sigmoid colon Benign essential hypertension Chronic pain Diabetes mellitus (CMS/HCC) Elevated blood pressure reading Influenza Knee pain, left Laceration of mouth Maxillary fracture (CMS/HCC) Positive colorectal cancer screening using Cologuard test family history includes ALS in his brother; Coronary artery disease in his brother, father, and mother; Stroke in his brother. Social History Tobacco Use Smoking status: Former Types: Cigarettes Smokeless tobacco: Never Substance Use Topics Alcohol use: Not Currently OBJECTIVE Visit Vitals Smoking Status Former Physical Exam Constitutional: General Appearance: well-developed, appears stated age. Level of Distress: no acute distress. Neck: Jugular Veins: normal jugular venous pressure. Lungs: Auscultation: no rales or rhonchi and normal breath sounds. Cardiovascular: Rate And Rhythm: irregular Heart Sounds: positive murmur Extremities: +1-2 LE edema Peripheral Pulses: Pulses: full, irregular. Abdomen: Inspection and Palpation: non distended or tender and soft. Musculoskeletal: Inspect (more content not included)... Normal [facility] Office Visiton 11-13-2024 Follow-up visit [id number] Viri Jurado rd L 1955 M Date Provider Department Center 11/13/2024 [id number], ADAM [facility] Family History Problem Relation Age of Onset Coronary artery disease Mother Coronary artery disease Father Coronary artery disease Brother ALS Brother Stroke Brother Family Status - Relation Status Age at Mother Father Sister Alive Brother Level of Service:69307 [place] OFFICE/OUTPATIENT ESTABLISHED HIGH MDM 40 MIN Normal [facility] CA ECHO DOPPLER COMPLETEon 0 11-08-2024 The [facility] [address] [place] [address] Cardiology Report Signed Patient: LISA JURADO MR#: [id number] : 1955 Acct:[id number] Age/Sex: 69 / M ADM Date: 11/07/24 Loc: PEDRO Attending Dr: Nikko Chris SENIOR TECHNICAL SUPPORT ENGINEER Ordering Physician: Nikko Roche NP Date of Service: 11/07/24 Procedure(s): CA echo doppler complete Accession Number(s): [id number] cc: SPENCER MAST ; Nikko Roche NP Patient Name: LISA JURADO MR#: [id number] : 1955 Exam Date: 11/07/2024 Ordering Doctor: [...] 3.24 m/s, 3.40 m/s Pulmonic Valve Peak V (more content not included)... [facility] Radiology, Radiologist, - 11/08/[address] [address] Cardiology Report Signed Patient: LISA JURADO MR#: [id number] : 1955 Acct:[id number] Age/Sex: 69 / M ADM Date: 11/07/24 Loc: CARD Attending Dr: Nikko Roche NP Ordering Physician: Nikko Roche NP Date of Service: 11/07/24 Procedure(s): CA echo doppler complete Accession Number(s): [id number] cc: SPENCER MAST ; Nikko Roche NP Patient Name: LISA JURADO MR#: [id number] : 1955 Exam Date: 11/07/2024 Ordering Doctor: [...] Pressure: 85.51 ml, 85.51 ml Dictated by: Muas Rahman M.D. on 11/08/2024 at 09:34 Approved by: Musa Rahman M.D. 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 Radiology Study observation (narrative) [facility] CA ECHO DOPPLER COMPLETEOrde red By: Radiologist Radiology on 11-08-[address] [facility] Work Phone: ALL BASIC METABOLIC PANELon 10-11-2024 Anion gap [Moles/Vol] 14.2 mmol/L [facility] Calcium [Mass/Vol] 8.5 mg/dL 8.5 - 10. 1 mg/dL [facility] Chloride [Moles/Vol] 107 mmol/L 98 - 10 7 mmol/L [facility] CO2 [Moles/Vol] 26.7 mmol/L 21.0 - 32.0 mmol/L [facility] Creatinine [Mass/Vol] 1.66 mg/dL High 0.70 - 1.30 mg/dL [facility] GFR/1.73 sq M.predicted CKD-EPI (S/P/Bld) [Vol rate/Area] 50 Low >=60 mL/min/1.[address] [facility] Glucose [Mass/Vol] 188 mg/dL High 74 - 106 mg/dL [facility] Potassium [Moles/Vol] 3.9 mmol/L 3.5 - 5.1 mmol/L [facility] Sodium [Moles/Vol] 144 mmol/L 136 - 145 mmol/L [facility] TBH EGFR-NON AF PALESTINIAN 41 Low >=60 mL/min/1.[address] [facility] Urea nitrogen [Mass/Vol] 34 mg/dL High 7.0 - 18.0 mg/dL [facility] Urea nitrogen/Creatinine [Mass ratio] 20.5 mg/mg [facility] ALL PRO BNPon 10-11-2024 NT PRO B TYPE NATRIURETIC PEPT 1046 pg/mL High NINF - 900.0 pg/mL [facility] No Panel Informationon 10-11 Interpretation and review of laboratory results Abnormal [facility] Office Visiton 10-04-2024 Follow-up visit [id number] Viri Jurado rd L Sr. 1955 M Date Provider Department Center 10/04/2024 [id number], ADAM [facility] Family History Problem Relation Age of Onset Coronary artery disease Mother Coronary artery disease Father Coronary artery disease Brother ALS Brother Stroke Brother Family Status - Relation Status Age at Mother Father Brother Level of Service:60274 [place] OFFICE/OUTPATIENT ESTABLISHED MOD MDM 30 MIN Normal [facility] MR shoulder RT wo conon 01-0 MR shoulder RT wo con [facility] [place] [address] [place], [place] [id number] MRI Report Signed Patient: Lisa Jurado SR MR#: [id number] : 1955 Acct:[id number] Age/Sex: 69 / M ADM Date: 07/22/24 Loc: [facility] Room: Type: [facility] Attending Dr: Leidy Bennett APRN Copies [...] Valeriano Fuller M.D.07/22/2024 6:44 PM Dictation Location: [place] [address] Transcribed By: [facility] 07/22/241843 Dictated By: Valeriano Fuller II, MD 07/22/24 183 Signed By: 07/22/24 184 Normal [facility] Magnetic resonance imaging r eportOrdered By: Valeriano Fuller on 07-22-2024 Study report [facility] [place] [address] MRI Report Signed Patient: Lisa Jurado SR MR#: [id number] : 1955 Acct:[id number] Age/Sex: 69 / M ADM Date: 5 Loc: [facility] Room: Type: [facility] Attending Dr: Leidy Bennett APRN Copies [...] Valeriano Fuller M.D.07/22/2024 6:44 PM Dictation Location: [place] [address] Transcribed By: [facility] 07/22/241843 Dictated By: Valeriano Fuller II, MD 07/22/24 326 Signed By: 07/22/24 927 [facility] Work Phone: XR shoulder RT min 2V*on XR shoulder RT min 2V* [facility] [place] [address] [place] [address] XRay Report Signed Patient: Lisa Jurado SR MR#: [id number] : 1955 Acct:[id number] Age/Sex: 69 / M ADM Date: 06/25/24 Loc: [place] [facility] Dr: Leidy Bennett APRN Copies to: Leidy Bennett APRN Ordering Provider: Leidy Bennett APRN Date of Service: 06/25/24 XR/XR shoulder RT min 2V*: [facility] RIGHT SHOULDER INJURY RIGHT SHOULDER - - 3 views CLINICAL HISTORY: Right shoulder injury yesterday. Now with pain.. COMPARISON: None FINDINGS: Mild degenerative changes of the AC and glenohumeral joints without acute bony process. XR/XR shoulder RT min 2V* IMPRESSION: MILD DEGENERATIVE CHANGES OF THE RIGHT SHOULDER WITHOUT ACUTE BONY PROCESS. Impression dictated by: Godwin Martin Jr., D.O.06/25/2024 3:37 PM Dictation Location: [facility] Transcribed By: [facility] 06/25/241536 Dictated By: Godwin Martin Jr, DO 06/25/241536 Signed By: 06/25/24 1537 Normal [facility] Office Visiton 02-26-2024 Follow-up visit [id number] Viri [address]ado rd, Sr. 1955 M Date Provider Department Center 02/26/2024 [facility] Family History Problem Relation Age of Onset Coronary artery disease Mother Coronary artery disease Father Coronary artery disease Brother ALS Brother Stroke Brother Family Status - Relation Status Age at Mother Father Brother Level of Service:09514 [place] OFFICE/OUTPATIENT ESTABLISHED LOW MDM 20 MIN Normal [facility] Office Visiton 02-01-2024 Follow-up visit [id number] Viri Jurado rd Sr. 1955 M Date Provider Department Center 02/01/2024 [facility] Family History Problem Relation Age of Onset Coronary artery disease Mother Coronary artery disease Father Coronary artery disease Brother ALS Brother Stroke Brother Family Status - Relation Status Age at Mother Father Brother Level of Service:23950 [place] OFFICE/OUTPATIENT ESTABLISHED MOD MDM 30 MIN Normal [facility] Capillary blood glucose melania urement by glucometer (mass/volume)Ordered By: Davide Cobb on 10-30-2023 Glucose [Mass/Vol] 168 mg/dL Normal [facility] Comment on above: Random Glucose Refer ence Range is dependent on time and content of last meal. Glucose of more than 200 mg/dL in a nonstressed, ambulatory subject supports the diagnosis of Diabetes Mellitus. Result Comment: [place] om Glucose Reference Range is dependent on time and content of last meal. Glucose of more than 200 mg/dL in a nonstressed, ambulatory subject supports the diagnosis of Diabetes Mellitus. Performed By: #### G LULS #### Point of Care testing , Glucose Poct Glucometerson 0 10-30-2023 Commemt1 Glu2: Cleaned Meter Normal [facility] Comment on above: Result Comment: PERF ORMED BY: [facility] [address] [place] [address] PATHOLOGIST FOREST WORKER HENOK YANEZ M.D. Performed By: #### G LULS #### Point of Care testing , Ck 10-30-2023 L Specimen: Received: 10/30/23 Status: ROSALINDA Keane Num: [id number] Spec Type: Surgical Subm Dr: Davide Cobb MD Tissues: A Colon Biopsy (POLYP AT 20 CM) Procedures: HE/2, Gross/Micro L4 Age/ Patient Sex Location Account Attending Physician Lisa Jurado SR 68/M [place] [id number] Davide Cobb MD SPEC NUM: [id number] RECD: 10/30/23 STATUS: ROSALINDA KEANE NUM: [id number] IZAIAH: 10/30/[address]: Davide Cobb MD ENTERED: 10/30/[address] [facility] [address]: SPEC TYPE: Surgical DEPT: S ORDERED: NIKI/Kit, Gross/Micro L4 ORDERED: NIKI/Kit, Gross/Micro L4 Pathological Diagnosis Colon polyp biopsy at 20 cm: -Small tubular adenoma, removed Gross Description In formalin labeled polyp at 20 cm is one 0.6 x 0.4 x 0.2 cm piece of samuel-pink mucosa. Submitted entirely in A1. RG/CYC Clinical history: Positive Cologuard CPT Codes 11834 ---- ---- Specimen: [id number] Received: 10/30/23 Status: ROSALINDA Keane Num: [id number] Spec Type: Surgical Subm Dr: Davide Cobb MD Tissues: A Colon Biopsy (POLYP AT 20 CM) Procedures: SHAZIA, Gross/Micro L4 ---- Patient: Lisa Jurado SR [id number] (Continued) ---- Signed (signature on file) Tameka Lacey MD 11/01/23 1250 Normal [facility] No Panel InformationOrdered By: Davide Cobb on 10-30-2023 Bedside Glucose Comment Glu2: cleaned meter [facility] XR knee BI 4Von 08-31-2023 XR knee BI 4V [facility] [place] [address] XRay Report Signed Patient: Lisa Jurado MR#: [id number] : 1955 Acct:[id number] Age/Sex: 68 / M ADM Date: 08/31/23 Loc: [facility] Room: Type: [facility] Attending Dr: Jagdeep Stiles II, MD Copies to: Jagdeep Stiles MD Ordering Provider: Jagdeep Stiles MD Date of Service: 08/31/23 XR/XR pelvis 1-2V: M25.562 - Pain in left knee ([id number]) XR/XR knee BI 4V: M25.561 - Pain [...] Martin Jr., D.O.08/31/2023 3:26 PM Dictation Location: [place] [address] Transcribed By: [facility] 08/31/23 1526 Dictated By: Godwin Martin Jr, DO 08/31/23 1524 Signed By: 08/31/23 1526 Normal [facility] COVID/FLU/RSV RT-PCRon 08-02 SARS-CoV-2 (COVID-19) RNA ANGÉLICA+probe Ql (Unsp spec) Negative [facility] [employer] Other COVID/FLU/RSV RT-PCR Positive [facility] [employer] Other COVID/FLU/RSV RT-PCR Negative [facility] [employer] Other ALBUMINon 09-08-2022 Albumin [Mass/Vol] 3.7 g/dL Normal 3.4-5.0 [facility] Comment on above: Performed By: #### P HOS, BMP, ALB, MG #### [facility] [address] [place] [address] Dr. Diamante Lacey CREATININE URINEon URINE CREAT 129.52 mg/dL Normal 20.00-300.0 0 [facility] Comment on above: Performed By: #### C BIRGIT PROTU #### [facility] [address] [place] [address] Dr. Diamante Lacey HEMOGLOBINon 09-08-2022 Hemoglobin (Bld) [Mass/Vol] 13.2 g/dL Critically low 14.0-18.0 [facility] Comment on above: Performed By: #### H GB #### [facility] [address] [place] [address] Dr. Diamante Lacey MAGNESIUMon 09-08-2022 Magnesium [Mass/Vol] 1.5 mg/dL Critically low 1.8-2.4 [facility] Comment on above: Performed By: #### P HOS, BMP, ALB, MG #### [facility] [address] [place] [address] Dr. Diamante Lacey PHOSPHORUSon 09-08-2022 Phosphate [Mass/Vol] 3.3 mg/dL Normal 2.6-4.7 [facility] Comment on above: Performed By: #### P HOS, BMP, ALB, MG #### [facility] [address] [place] [address] Dr. Diamante Lacey PROF CHEM 8 (BAS METB)on Anion gap [Moles/Vol] 9.6 mmol/L Normal [facility] Comment on above: Performed By: #### P HOS, BMP, ALB, MG #### [facility] [address] [place] [address] [address] Diamante Lacey Calcium [Mass/Vol] 8.9 mg/dL Normal 8.5-10.1 [facility] Comment on above: Performed By: #### P HOS, BMP, ALB, MG #### [facility] [address] [place] [address] [address] Diamante Lacey Chloride [Moles/Vol] 106 mmol/L Normal 98-107 [facility] Comment on above: Performed By: #### P HOS, BMP, ALB, MG #### [facility] [address] [place] [address] Dr. Diamante Lacey CO2 [Moles/Vol] 30.5 mmol/L Normal 21.0-32.0 [facility] Comment on above: Performed By: #### P HOS, BMP, ALB, MG #### [facility] [address] [place] [address] [address] Diamante Lacey Creatinine [Mass/Vol] 1.34 mg/dL Critically high 0.70-1.30 [facility] Comment on above: Performed By: #### P HOS, BMP, ALB, MG #### [facility] [address] [place] [address] Dr. Diamante Lacey EGFR-AF PALESTINIAN >60 Normal >=60 [facility] Comment on above: Performed By: #### P HOS, BMP, ALB, MG #### [facility] [address] [place] [address] [address] Diamante Lacey EGFR-NON AF PALESTINIAN 53 mL/min/1.73m2 Critically low >=60 [facility] Comment on above: Performed By: #### P HOS, BMP, ALB, MG #### [facility] [address] [place] [address] [address] Diamante Lacey Glucose [Mass/Vol] 121 mg/dL Critically high 74-106 [facility] Comment on above: Performed By: #### P HOS, BMP, ALB, MG #### [facility] [address] [place] [address] Dr. Diamante Lacey Potassium [Moles/Vol] 4.1 mmol/L Normal 3.5-5.1 [facility] Comment on above: Performed By: #### P HOS, BMP, ALB, MG #### [facility] [address] [place] [address] Dr. Diamante Lacey Sodium [Moles/Vol] 142 mmol/L Normal 136-145 [facility] Comment on above: Performed By: #### P HOS, BMP, ALB, MG #### [facility] [address] [place] [address] Dr. Diamante Lacey Urea nitrogen [Mass/Vol] 19.0 mg/dL Critically high 7.0-18.0 [facility] Comment on above: Performed By: #### P HOS, BMP, ALB, MG #### [facility] [address] [place] [address] Dr. Diamante Lacey Urea nitrogen/Creatinine [Mass ratio] 14.2 mg/mg Normal [facility] Comment on above: Performed By: #### P HOS, BMP, ALB, MG #### [facility] [address] [place] [address] Dr. Diamante Lacey PROTEIN RAND URINEon 023 UR PROT 15.5 mg/dL Critically high <=11.9 [facility] Comment on above: Performed By: #### C REAU, PROTU #### [facility] [address] [place] [address] Dr. Diamante Lacey CBC AUTO DIFFon 06-06-2022 BASO # 0.1 103/ul Normal 0.0-0.1 [facility] Comment on above: Performed By: #### B MP #### [facility] [address] [place] [address] Dr. Diamante Lacey Basophils/100 WBC (Bld) 0.8 % Normal 0.2-2.0 [facility] Comment on above: Performed By: #### B MP #### [facility] [address] [place] [address] Dr. Diamante Lacey EO # 0.2 103/ul Normal 0.0-0.7 [facility] Comment on above: Performed By: #### B MP #### [facility] [address] [place] [address] Dr. Diamante Lacey Eosinophils/100 WBC (Bld) 3.0 % Normal 0.9-7.0 [facility] Comment on above: Performed By: #### B MP #### [facility] [address] [place] [address] Dr. Diamante Lacey Erythrocyte distribution width (RBC) [Ratio] 14.2 % Normal 11.0-15.0 [facility] Comment on above: Performed By: #### B MP #### [facility] [address] [place] [address] Dr. Diamante Lacey Hematocrit (Bld) [Volume fraction] 41.4 % Critically low 42.0-54.0 [facility] Comment on above: Performed By: #### B MP #### [facility] [address] [place] [address] Dr. Diamante Lacey Hemoglobin (Bld) [Mass/Vol] 14.0 g/dL Normal 14.0-18.0 [facility] Comment on above: Performed By: #### B MP #### [facility] [address] [place] [address] Dr. Diamante Lacey IG # 0.03 10e3/ul Normal 0.00-0.03 [facility] Comment on above: Performed By: #### B MP #### [facility] [address] [place] [address] Dr. Diamante Lacey IG % 0.4 % Normal 0.0-0.5 [facility] Comment on above: Performed By: #### B MP #### [facility] [address] [place] [address] Dr. Diamante Lacey LYMPH # 1.8 103/ul Normal 1.2-3.8 [facility] Comment on above: Performed By: #### B MP #### [facility] [address] [place] [address] Dr. Diamante Lacey Lymphocytes/100 WBC (Bld) 23.0 % Normal 20.5-60.0 [facility] Comment on above: Performed By: #### B MP #### [facility] [address] [place] [address] Dr. Diamante Lacey MANUAL DIFF REQ NO Normal [facility] Comment on above: Performed By: #### B MP #### [facility] [address] [place] [address] Dr. Diamante Lacey MCH (RBC) [Entitic mass] 30.3 pg Normal 25.9-34.0 [facility] Comment on above: Performed By: #### B MP #### [facility] [address] [place] [address] Dr. Diamante Lacey MCHC (RBC) [Mass/Vol] 33.8 g/dL Normal 29.9-35.2 [facility] Comment on above: Performed By: #### B MP #### [facility] [address] [place] [address] Dr. Diamante Lacey MCV (RBC) [Entitic vol] 89.6 fL Normal 80.0-94.0 [facility] Comment on above: Performed By: #### B MP #### [facility] [address] [place] [address] Dr. Diamante Lacey MONO # 0.8 103/ul Normal 0.3-0.8 [facility] Comment on above: Performed By: #### B MP #### [facility] [address] [place] [address] Dr. Diamante Lacey Monocytes/100 WBC (Bld) 9.8 % Normal 1.7-12.0 [facility] Comment on above: Performed By: #### B MP #### [facility] [address] [place] [address] Dr. Diamante Lacey NEUT # 5.0 103/ul Normal 1.4-6.5 [facility] Comment on above: Performed By: #### B MP #### [facility] [address] [place], [place] [address] Dr. Diamante Lacey Neutrophils/100 WBC (Bld) 63.0 % Normal 43.0-75.0 [facility] Comment on above: Performed By: #### B MP #### [facility] [address] [place] [address] Dr. Diamante Lacey Platelet mean volume (Bld) [Entitic vol] 10.4 fL Normal 9.5-13.5 [facility] Comment on above: Performed By: #### B MP #### [facility] [address] [place] [address] Dr. Diamante Lacey PLT 215 103/ul Normal 150-450 [facility] Comment on above: Performed By: #### B MP #### [facility] [address] [place] [address] Dr. Diamante Lacey RBC 4.62 106/ul Critically low 4.70-6.10 [facility] Comment on above: Performed By: #### B MP #### [facility] [address] [place] [address] Dr. Diamante Lacey WBC 7.9 103/ul Normal 4.0-11.0 [facility] Comment on above: Performed By: #### B MP #### [facility] [address] [place] [address] Dr. Diamante Lacey CREATININE URINEon 2 URINE CREAT 46.09 mg/dL Normal 20.00-300.0 0 [facility] Comment on above: Performed By: #### B MP #### [facility] [address] [place] [address] Dr. Diamante Lacey MAGNESIUMon 06-06-2022 Magnesium [Mass/Vol] 2.2 mg/dL Normal 1.8-2.4 [facility] Comment on above: Performed By: #### B MP #### [facility] [address] [place] [address] Dr. Diamante Lacey PHOSPHORUSon 06-06-2022 Phosphate [Mass/Vol] 4.9 mg/dL Critically high 2.6-4.7 [facility] Comment on above: Performed By: #### B MP #### [facility] [address] [address] [address] Diamante Lacey PROF 14(COMP METB)on 022 Albumin [Mass/Vol] 3.9 g/dL Normal 3.4-5.0 [facility] Comment on above: Performed By: #### B MP #### [facility] [address] [address] [address] Diamante Lacey Albumin/Globulin [Mass ratio] 1.3 {ratio} Normal [facility] Comment on above: Performed By: #### B MP #### [facility] [address] [address] [address] Diamante Lacey ALP [Catalytic activity/Vol] 80 U/L Normal 46-116 [facility] Comment on above: Performed By: #### B MP #### [facility] [address] [place] [address] Dr. Diamante Lacey ALT [Catalytic activity/Vol] 32 U/L Normal 16-63 [facility] Comment on above: Performed By: #### B MP #### [facility] [address] [address] [address] Diamante Lacey Anion gap [Moles/Vol] 10.5 mmol/L Normal [facility] Comment on above: Performed By: #### B MP #### [facility] [address] [address] [address] Diamante Lacey AST [Catalytic activity/Vol] 8 U/L Critically low 15-37 [facility] Comment on above: Performed By: #### B MP #### [facility] [address] [place] [address] Dr. Diamante Lacey Bilirubin [Mass/Vol] 0.6 mg/dL Normal 0.2-1.0 [facility] Comment on above: Performed By: #### B MP #### [facility] [address] [place] [address] [address] Diamante Lacey Calcium [Mass/Vol] 9.4 mg/dL Normal 8.5-10.1 [facility] Comment on above: Performed By: #### B MP #### [facility] [address] [address] [address] Diamante Lacey Chloride [Moles/Vol] 103 mmol/L Normal 98-107 [facility] Comment on above: Performed By: #### B MP #### [facility] [address] [place] [address] [address] Diamante Lacey CO2 [Moles/Vol] 30.7 mmol/L Normal 21.0-32.0 [facility] Comment on above: Performed By: #### B MP #### [facility] [address] [place] [address] [address] Diamante Lacey Creatinine [Mass/Vol] 1.72 mg/dL Critically high 0.70-1.30 [facility] Comment on above: Performed By: #### B MP #### [facility] [address] [place] [address] [address] Diamante Lacey EGFR-AF PALESTINIAN 48 mL/min/1.73m2 Critically low >=60 [facility] Comment on above: Performed By: #### B MP #### [facility] [address] [place] [address] [address] Diamante Lacey EGFR-NON AF PALESTINIAN 40 mL/min/1.73m2 Critically low >=60 [facility] Comment on above: Performed By: #### B MP #### [facility] [address] [place] [address] [address] Diamante Lacey Globulin (S) [Mass/Vol] 3.1 g/dL Normal [facility] Comment on above: Performed By: #### B MP #### [facility] [address] [place] [address] [address] Diamante Lacey Glucose [Mass/Vol] 137 mg/dL Critically high 74-106 T [facility] Comment on above: Performed By: #### B MP #### [facility] [address] [place] [address] [address] Diamante Lacey Potassium [Moles/Vol] 4.2 mmol/L Normal 3.5-5.1 [facility] Comment on above: Performed By: #### B MP #### [facility] [address] [place] [address] [address] Diamante Lacey Protein [Mass/Vol] 7.0 g/dL Normal 6.4-8.2 [facility] Comment on above: Performed By: #### B MP #### [facility] [address] [place] [address] Dr. Diamante Lacey Sodium [Moles/Vol] 140 mmol/L Normal 136-145 [facility] [facility] Comment on above: Performed By: #### B MP #### [facility] [address] [place] [address] Dr. Diamante Lacey Urea nitrogen [Mass/Vol] 32.0 mg/dL Critically high 7.0-18.0 [facility] Comment on above: Performed By: #### B MP #### [facility] [address] [place] [address] Dr. Diamante Lacey Urea nitrogen/Creatinine [Mass ratio] 18.6 mg/mg Normal [facility] Comment on above: Performed By: #### B MP #### [facility] [address] [place] [address] Dr. Diamante Lacey PROTEIN RAND URINEon 022 UR PROT <6.0 Normal <=11.9 [facility] Comment on above: Performed By: #### B MP #### [facility] [address] [place] [address] Dr. Diamante Lacey UA RANDOM W/MICROSCOPICon BACTERIA NONE SEEN Normal NONE SEEN [facility] Comment on above: Performed By: #### B MP #### [facility] [address] [place] [address] Dr. Diamante Lacey Bilirubin Ql (U) Negative Normal NEGATIVE [facility] Comment on above: Performed By: #### B MP #### [facility] [address] [place] [address] Dr. Diamante Lacey CAST NONE SEEN Normal NONE SEEN [facility] Comment on above: Performed By: #### B MP #### [facility] [address] [place] [address] Dr. Diamante Lacey Clarity (U) CLEAR Normal CLEAR [facility] Comment on above: Performed By: #### B MP #### [facility] [address] [place] [address] Dr. Diamante Lacey Color (U) LT. YELLOW Normal YELLOW [facility] Comment on above: Performed By: #### B MP #### [facility] [address] [place] [address] Dr. Diamante Lacey Crystals LM Nom (Urine sed) NONE SEEN Normal NONE SEEN [facility] Comment on above: Performed By: #### B MP #### [facility] [address] [place] [address] Dr. Diamante Lacey Epithelial cells LM Ql (Urine sed) RARE Normal NONE SEEN /RARE [facility] Comment on above: Performed By: #### B MP #### [facility] [address] [place] [address] Dr. Diamante Lacey Glucose Ql (U) >1000 Abnormal NEGATIVE [facility] Comment on above: Performed By: #### B MP #### [facility] [address] [place] [address] Dr. Diamante Lacey Hemoglobin Ql (U) Negative Normal NEGATIVE [facility] Comment on above: Performed By: #### B MP #### [facility] [address] [place] [address] Dr. Diamante Lacey Ketones Ql (U) Negative Normal NEGATIVE [facility] Comment on above: Performed By: #### B MP #### [facility] [address] [place] [address] Dr. Diamante Lacey LEUKOCYTES Negative Normal NEGATIVE [facility] Comment on above: Performed By: #### B MP #### [facility] [address] [place] [address] Dr. Diamante Lacey MUCOUS NONE SEEN Normal NONE SEEN [facility] Comment on above: Performed By: #### B MP #### [facility] [address] [place] [address] Dr. Diamante Lacey Nitrite Ql (U) Negative Normal NEGATIVE [facility] Comment on above: Performed By: #### B MP #### [facility] [address] [place] [address] Dr. Diamante Lacey pH (U) 5.5 [pH] Normal 5-9 [facility] Comment on above: Performed By: #### B MP #### [facility] [address] [place] [address] Dr. Diamante Lacey RBC NONE SEEN Abnormal 0-2 [facility] Comment on above: Performed By: #### B MP #### [facility] [address] [place] [address] Dr. Diamante Lacey SPEC GRAVITY 1.020 Normal 1.005-<=1.0 25 [facility] Comment on above: Performed By: #### B MP #### [facility] [address] [place] [address] Dr. Diamante Lacey UA PROTEIN Negative Normal NEGATIVE/ TRACE [facility] Comment on above: Performed By: #### B MP #### [facility] [address] [place] [address] Dr. Diamante Lacey Urobilinogen Qn (U) 0.2 {Iraida'U}/dL Normal 0.2 - 1. 0 [facility] Comment on above: Performed By: #### B MP #### [facility] [address] [place] [address] Dr. Diamante Lacey WBC NONE SEEN Normal NONE SEEN [facility] Comment on above: Performed By: #### B MP #### [facility] [address] [place] [address] Dr. Diamante Lacey PROF CHEM 8 (BAS METB)on Anion gap [Moles/Vol] 14.5 mmol/L Normal [facility] Comment on above: Performed By: #### B MP #### [facility] [address] [place] [address] Dr. Diamante Lacey Calcium [Mass/Vol] 9.3 mg/dL Normal 8.5-10.1 [facility] Comment on above: Performed By: #### B MP #### [facility] [address] [place] [address] Dr. Diamante Lacey Chloride [Moles/Vol] 103 mmol/L Normal 98-107 [facility] Comment on above: Performed By: #### B MP #### [facility] [address] [address] [address] Diamante Lacey CO2 [Moles/Vol] 28.0 mmol/L Normal 21.0-32.0 [facility] Comment on above: Performed By: #### B MP #### [facility] [address] [address] [address] Diamante Lacey Creatinine [Mass/Vol] 1.67 mg/dL Critically high 0.70-1.30 [facility] Comment on above: Performed By: #### B MP #### [facility] [address] [address] [address] Diamante Lacey EGFR-AF PALESTINIAN 50 mL/min/1.73m2 Critically low >=60 [facility] Comment on above: Performed By: #### B MP #### [facility] [address] [address] [address] Diamante Lacey EGFR-NON AF PALESTINIAN 41 mL/min/1.73m2 Critically low >=60 [facility] Comment on above: Performed By: #### B MP #### [facility] [address] [address] [address] Diamante Lacey Glucose [Mass/Vol] 165 mg/dL Critically high 74-106 [facility] Comment on above: Performed By: #### B MP #### [facility] [address] [address] [address] Diamante Lacey Potassium [Moles/Vol] 4.5 mmol/L Normal 3.5-5.1 [facility] Comment on above: Performed By: #### B MP #### [facility] [address] [address] [address] Diamante Lacey Sodium [Moles/Vol] 141 mmol/L Normal 136-145 [facility] Comment on above: Performed By: #### B MP #### [facility] [address] [address] [address] Diamante Lacey Urea nitrogen [Mass/Vol] 39.0 mg/dL Critically high 7.0-18.0 [facility] Comment on above: Performed By: #### B MP #### [facility] [address] [address] [address] Diamante Lacey Urea nitrogen/Creatinine [Mass ratio] 23.4 mg/mg Normal [facility] Comment on above: Performed By: #### B MP #### [facility] [address] [address] [address] Diamante Lacey PROF CHEM 8 (BAS METB)on Anion gap [Moles/Vol] 13.7 mmol/L Normal [facility] Comment on above: Performed By: #### B MP #### [facility] [address] [address] [address] Diamante Lacey Calcium [Mass/Vol] 9.0 mg/dL Normal 8.5-10.1 [facility] Comment on above: Performed By: #### B MP #### [facility] [address] [address] [address] Diamante Lacey Chloride [Moles/Vol] 102 mmol/L Normal 98-107 [facility] Comment on above: Performed By: #### B MP #### [facility] [address] [address] [address] Diamante Lacey CO2 [Moles/Vol] 29.3 mmol/L Normal 21.0-32.0 [facility] Comment on above: Performed By: #### B MP #### [facility] [address] [address] [address] Diamante Lacey Creatinine [Mass/Vol] 1.66 mg/dL Critically high 0.70-1.30 [facility] Comment on above: Performed By: #### B MP #### [facility] [address] [address] [address] Diamante Lacey EGFR-AF PALESTINIAN 50 mL/min/1.73m2 Critically low >=60 [facility] Comment on above: Performed By: #### B MP #### [facility] [address] [address] [address] Diamante Lacey EGFR-NON AF PALESTINIAN 41 mL/min/1.73m2 Critically low >=60 [facility] Comment on above: Performed By: #### B MP #### [facility] [address] [place], [place] [address] Dr. Diamante Lacey Glucose [Mass/Vol] 137 mg/dL Critically high 74-106 [facility] Comment on above: Performed By: #### B MP #### [facility] [address] [place], [place] [address] Dr. Diamante Lacey Potassium [Moles/Vol] 4.0 mmol/L Normal 3.5-5.1 [facility] Comment on above: Performed By: #### B MP #### [facility] [address] [address] [address] Diamante Lacey Sodium [Moles/Vol] 141 mmol/L Normal 136-145 [facility] Comment on above: Performed By: #### B MP #### [facility] [address] [address] [address] Diamante Lacey Urea nitrogen [Mass/Vol] 38.0 mg/dL Critically high 7.0-18.0 [facility] Comment on above: Performed By: #### B MP #### [facility] [address] [address] [address] Diamante Lacey Urea nitrogen/Creatinine [Mass ratio] 22.9 mg/mg Normal [facility] Comment on above: Performed By: #### B MP #### [facility] [address] [address] [address] Diamante Lacey NM STRESS ONLY SINGLEon NM STRESS ONLY SINGLE Patient: LISA JURADO Exam Date: 02/16/2022 : 1955 Gender:M Ordering : DR SPENCER MAST M.D. Admission #: [id number] Family : DR JUDI WILSON M.D. Order #: [id number] CLICK HERE TO VIEW EXAM RADIOLOGY REPORT [...] MD on 03/24/2022 at 11:54 Normal [facility] CBC AUTO DIFFon 01-27-2022 BASO # 0.1 103/ul Normal 0.0-0.1 [facility] Comment on above: Performed By: #### B MP #### [facility] [address] [place] [address] Dr. Diamante Lacey Basophils/100 WBC (Bld) 0.6 % Normal 0.2-2.0 [facility] Comment on above: Performed By: #### B MP #### [facility] [address] [place] [address] Dr. Diamante Lacey EO # 0.2 103/ul Normal 0.0-0.7 [facility] Comment on above: Performed By: #### B MP #### [facility] [address] [place] [address] Dr. Diamante Lacey Eosinophils/100 WBC (Bld) 2.6 % Normal 0.9-7.0 [facility] Comment on above: Performed By: #### B MP #### [facility] [address] [place] [address] Dr. Diamante Lacey Erythrocyte distribution width (RBC) [Ratio] 14.6 % Normal 11.0-15.0 [facility] Comment on above: Performed By: #### B MP #### [facility] [address] [place] [address] Dr. Diamante Lacey Hematocrit (Bld) [Volume fraction] 39.1 % Critically low 42.0-54.0 [facility] Comment on above: Performed By: #### B MP #### [facility] [address] [place] [address] Dr. Diamante Lacey Hemoglobin (Bld) [Mass/Vol] 12.8 g/dL Critically low 14.0-18.0 [facility] Comment on above: Performed By: #### B MP #### [facility] [address] [place] [address] Dr. Diamante Lacey IG # 0.02 10e3/ul Normal 0.00-0.03 [facility] Comment on above: Performed By: #### B MP #### [facility] [address] [place] [address] Dr. Diamante Lacey IG % 0.2 % Normal 0.0-0.5 [facility] Comment on above: Performed By: #### B MP #### [facility] [address] [place] [address] Dr. Diamante Lacey LYMPH # 1.7 103/ul Normal 1.2-3.8 [facility] Comment on above: Performed By: #### B MP #### [facility] [address] [place] [address] Dr. Diamante Lacey Lymphocytes/100 WBC (Bld) 20.8 % Normal 20.5-60.0 [facility] Comment on above: Performed By: #### B MP #### [facility] [address] [place] [address] Dr. Diamante Lacey MANUAL DIFF REQ NO Normal [facility] Comment on above: Performed By: #### B MP #### [facility] [address] [place] [address] Dr. Diamante Lacey MCH (RBC) [Entitic mass] 30.0 pg Normal 25.9-34.0 [facility] Comment on above: Performed By: #### B MP #### [facility] [address] [place] [address] Dr. Diamante Lacey MCHC (RBC) [Mass/Vol] 32.7 g/dL Normal 29.9-35.2 [facility] Comment on above: Performed By: #### B MP #### [facility] [address] [address] [address] Diamante Lacey MCV (RBC) [Entitic vol] 91.6 fL Normal 80.0-94.0 [facility] Comment on above: Performed By: #### B MP #### [facility] [address] [address] [address] Diamante Lacey MONO # 0.8 103/ul Normal 0.3-0.8 [facility] Comment on above: Performed By: #### B MP #### [facility] [address] [address] [address] Diamante Lacey Monocytes/100 WBC (Bld) 9.4 % Normal 1.7-12.0 [facility] Comment on above: Performed By: #### B MP #### [facility] [address] [address] [address] Diamante Lacey NEUT # 5.5 103/ul Normal 1.4-6.5 [facility] Comment on above: Performed By: #### B MP #### [facility] [address] [address] [address] Diamante Lacey Neutrophils/100 WBC (Bld) 66.4 % Normal 43.0-75.0 [facility] Comment on above: Performed By: #### B MP #### [facility] [address] [address] [address] Diamante Lacey Platelet mean volume (Bld) [Entitic vol] 11.3 fL Normal 9.5-13.5 [facility] Comment on above: Performed By: #### B MP #### [facility] [address] [address] [address] Diamante Lacey PLT 196 103/ul Normal 150-450 [facility] Comment on above: Performed By: #### B MP #### [facility] [address] [address] [address] Diamante Lacey RBC 4.27 106/ul Critically low 4.70-6.10 [facility] Comment on above: Performed By: #### B MP #### [facility] [address] [address] [address] Diamante Lacey WBC 8.3 103/ul Normal 4.0-11.0 [facility] Comment on above: Performed By: #### B MP #### [facility] [address] [place] [address] Dr. Diamante Lacey LIPASEon 01-27-2022 Lipase [Catalytic activity/Vol] 227.0 U/L Normal 73.0-393.0 [facility] Comment on above: Performed By: #### B MP #### [facility] [address] [place] [address] Dr. Diamante Lacey MAGNESIUMon 01-27-2022 Magnesium [Mass/Vol] 1.7 mg/dL Critically low 1.8-2.4 [facility] Comment on above: Performed By: #### M G #### [facility] [address] [place] [address] Dr. Diamante Lacey PROF 14(COMP METB)on 022 Albumin [Mass/Vol] 3.6 g/dL Normal 3.4-5.0 [facility] Comment on above: Performed By: #### B MP #### [facility] [address] [place] [address] Dr. Diamante Lacey Albumin/Globulin [Mass ratio] 1.4 {ratio} Normal [facility] Comment on above: Performed By: #### B MP #### [facility] [address] [place] [address] Dr. Diamante Lacey ALP [Catalytic activity/Vol] 88 U/L Normal 46-116 [facility] Comment on above: Performed By: #### B MP #### [facility] [address] [place] [address] Dr. Diamante Lacey ALT [Catalytic activity/Vol] 30 U/L Normal 16-63 [facility] Comment on above: Performed By: #### B MP #### [facility] [address] [place] [address] Dr. Diamante Lacey Anion gap [Moles/Vol] 15.7 mmol/L Normal [facility] Comment on above: Performed By: #### B MP #### [facility] [address] [address] [address] Diamante Lacey AST [Catalytic activity/Vol] 13 U/L Critically low 15-37 [facility] Comment on above: Performed By: #### B MP #### [facility] [address] [address] [address] Diamante Lacey Bilirubin [Mass/Vol] 0.5 mg/dL Normal 0.2-1.0 [facility] Comment on above: Performed By: #### B MP #### [facility] [address] [address] [address] Diamante Lacey Calcium [Mass/Vol] 8.5 mg/dL Normal 8.5-10.1 [facility] Comment on above: Performed By: #### B MP #### [facility] [address] [address] [address] Diamante Lacey Chloride [Moles/Vol] 106 mmol/L Normal 98-107 [facility] Comment on above: Performed By: #### B MP #### [facility] [address] [address] [address] Diamante Lacey CO2 [Moles/Vol] 24.4 mmol/L Normal 21.0-32.0 [facility] Comment on above: Performed By: #### B MP #### [facility] [address] [address] [address] Diamante Lacey Creatinine [Mass/Vol] 1.41 mg/dL Critically high 0.70-1.30 [facility] Comment on above: Performed By: #### B MP #### [facility] [address] [address] [address] Diamante Lacey EGFR-AF PALESTINIAN >60 Normal >=60 [facility] Comment on above: Performed By: #### B MP #### [facility] [address] [address] [address] Diamante Lacey EGFR-NON AF PALESTINIAN 50 mL/min/1.73m2 Critically low >=60 [facility] Comment on above: Performed By: #### B MP #### [facility] [address] [address] [address] Diamante Lacey Globulin (S) [Mass/Vol] 2.5 g/dL Normal [facility] Comment on above: Performed By: #### B MP #### [facility] [address] [address] [address] Diamante Lacey Glucose [Mass/Vol] 103 mg/dL Normal 74-106 [facility] Comment on above: Performed By: #### B MP #### [facility] [address] [address] [address] Diamante Lacey Potassium [Moles/Vol] 4.1 mmol/L Normal 3.5-5.1 [facility] Comment on above: Performed By: #### B MP #### [facility] [address] [address] [address] Diamante Lacey Protein [Mass/Vol] 6.1 g/dL Critically low 6.4-8.2 [facility] Comment on above: Performed By: #### B MP #### [facility] [address] [address] [address] Diamante Lacey Sodium [Moles/Vol] 142 mmol/L Normal 136-145 [facility] Comment on above: Performed By: #### B MP #### [facility] [address] [address] [address] Diamante Lacey Urea nitrogen [Mass/Vol] 23.0 mg/dL Critically high 7.0-18.0 [facility] Comment on above: Performed By: #### B MP #### [facility] [address] [address] [address] Diamante Lacey Urea nitrogen/Creatinine [Mass ratio] 16.3 mg/mg Normal [facility] Comment on above: Performed By: #### B MP #### [facility] [address] [place] [address] Dr. Diamante Lacey TROPONIN, HIGH SENSITIVITYon 01-27-2022 HSTROP 15.5 pg/mL Normal 4.0-76.1 [facility] Comment on above: Result Comment: CUT- OFF POINTS HAVE BEEN ESTABLISHED BASED ON THE FOURTH UNIVERSAL DEFINITIONS OF MYOCARDIAL INFARCTION. THE UPPER REFERENCE LIMIT (URL) OF TROPONIN, DEFINED THE 99TH PERCENTILE OF cTnI DISTRIBUTION IN A REFERENCE POPULATION, HAS BEEN CONFIRMED THE DECISION THRESHOLD FOR [place] DIAGNOSIS. Performed By: #### B MP #### [facility] [address] [place], [place] [address] Dr. Diamante Lacey HSTROP 13.8 pg/mL Normal 4.0-76.1 [facility] Comment on above: Result Comment: CUT- OFF POINTS HAVE BEEN ESTABLISHED BASED ON THE FOURTH UNIVERSAL DEFINITIONS OF MYOCARDIAL INFARCTION. THE UPPER REFERENCE LIMIT (URL) OF TROPONIN, DEFINED THE 99TH PERCENTILE OF cTnI DISTRIBUTION IN A REFERENCE POPULATION, HAS BEEN CONFIRMED THE DECISION THRESHOLD FOR VT DIAGNOSIS. Performed By: #### B MP #### [facility] [address] [place], [place] [address] Dr. Diamante Lacey XR CHEST 1 Von [...] ALBERTO RAE Date: 2022-01-27 19:00 Normal [facility] Office Visit (Cardiology)on 06-18-2021 Follow-up visit [...] negative for complaint. Vitals Vital Signs Recorded: 18Jun2021 01:30PMRecorded: 18Jun2021 01:28PM Qptofeuv265, RUE, [id number], LUE, Sitting Bhpifhsif47, RUE, [id number], LUE, Sitting Heart Rate78, L Radial Height5 ft 10 in Jyrxaf175 lb BMI Yicltyvwxi43.72 kg/m2 BSA Calculated2.26 Physical Exam Constitutional: alert [...] No Panel Informationon 06-11 8.8\S\8.8 Normal 8.2-10.2 [facility] [employer] [place] 250 DO Work Phone: Comment on above: PERFORMED BY:[facility] [place], [place] [address], [place] [id number] MEDICAL DIRECTORHENOK YANEZ M.D. 27.0\S\27.0 Normal 22.0-30.0 [facility] [employer] 250 DO Work Phone: 103\S\103 Normal 95-114 [facility] [employer] 250 DO Work Phone: 4.4\S\4.4 Normal 3.5-5.1 [facility] [employer] 250 DO Work Phone: 138\S\138 Normal 136-146 [facility] 250 DO Work Phone: 53\S\53 Normal [facility] 250 DO Work Phone: Comment on above: GFR estimated refere nce range: According to KDOQI guidelines, <60 ml/min/1.73m2 is sufficient to diagnose a patient with chronic kidney disease. 44\S\44 Normal [employer] [employer] [place] 250 DO Work Phone: 1.59\S\1.59 above high threshold 0.64-1.27 [facility] [employer] 250 DO Work Phone: 25\S\25 above high threshold 9-23 [employer] [employer] [place] 250 DO Work Phone: 143\S\143 above high threshold 70-100 [employer] [employer] 250 DO Work Phone: Comment on above: [...] Vital Signs Recorded: 28May2021 02:21PMRecorded: 28May2021 02:13PM [id number], LUE, [id number], RUE, Sitting Zlqiydxaj75, LUE, [id number], RUE, Sitting Heart Rate71, Apical Height5 ft 10 in Zeqdlm140 lb BMI Lkxgealpzs80.87 kg/m2 BSA Calculated2.27 Tobacco Useb) No Fall [...] S1 and (more content not included)... Normal aCon Tobacco Screening.on 021 Fall risk assessment a) No falls within the last year [facility] 250 DO Work Phone: Tobacco use status [facility] b) No [facility] [employer] 250 DO Work Phone: Vital Signs Date Time Vital Sign Value Performing Clinician Facility 11-26-2024 09:04-0400 Body height 175.3 cm Zoila Fountain NP Work Phone: [facility] 11-26-2024 09:04-0400 Body mass index (BMI) [Ratio] 37.95 kg/m2 Zoila Fountain NP Work Phone: [facility] 11-26-2024 09:04-0400 Body weight 116.57 kg Zoila Fountain SENIOR TECHNICAL SUPPORT ENGINEER Work Phone: [facility] 11-26-2024 09:04-0400 Diastolic blood pressure 92 mm[Hg] Zoila Panda SENIOR TECHNICAL SUPPORT ENGINEER Work Phone: [facility] 11-26-2024 09:04-0400 Heart rate 46 /min Zoila Panda SENIOR TECHNICAL SUPPORT ENGINEER Work Phone: [facility] 11-26-2024 09:04-0400 Respiratory rate 17 /min Zoila Padna SENIOR TECHNICAL SUPPORT ENGINEER Work Phone: [facility] 11-26-2024 09:04-0400 SaO2% (BldA) [Mass fraction] 99 % Zoila Fountain SENIOR TECHNICAL SUPPORT ENGINEER Work Phone: [facility] 11-26-2024 09:04-0400 Systolic blood pressure 168 mm[Hg] Zoila Fountain SENIOR TECHNICAL SUPPORT ENGINEER Work Phone: [facility] 08-14-2024 13:47-0500 Body height 175.26 cm Spencer Mast MD Work Phone: [facility] 08-14-2024 13:47-0500 Body mass index (BMI) [Ratio] 35.4 kg/m2 Spencer Mast MD Work Phone: [facility] 08-14-2024 13:47-0500 Body weight 108.86 kg Spencer Mast MD Work Phone: [facility] 08-01-2024 15:20-0500 Body height 175.3 cm Zoila Fountain SENIOR TECHNICAL SUPPORT ENGINEER Work Phone: [facility] 08-01-2024 15:20-0500 Body mass index (BMI) [Ratio] 36.27 kg/m2 Zoila Fountain SENIOR TECHNICAL SUPPORT ENGINEER Work Phone: [facility] 08-01-2024 15:20-0500 Body weight 111.4 kg Zoila Fountain SENIOR TECHNICAL SUPPORT ENGINEER Work Phone: [facility] 08-01-2024 15:20-0500 Diastolic blood pressure 86 mm[Hg] Zoila Santa Cruz SENIOR TECHNICAL SUPPORT ENGINEER Work Phone: [facility] 08-01-2024 15:20-0500 Heart rate 105 /min Zoila Panda SENIOR TECHNICAL SUPPORT ENGINEER Work Phone: [facility] 08-01-2024 15:20-0500 Respiratory rate 17 /min Zoila Panda SENIOR TECHNICAL SUPPORT ENGINEER Work Phone: [facility] 08-01-2024 15:20-0500 SaO2% (BldA) [Mass fraction] 96 % Zoila Panda SENIOR TECHNICAL SUPPORT ENGINEER Work Phone: [facility] 08-01-2024 15:20-0500 Systolic blood pressure 182 mm[Hg] Zoila Panda SENIOR TECHNICAL SUPPORT ENGINEER Work Phone: [facility] 06-20-2024 16:21-0500 Body height 175.3 cm Zoila Panda SENIOR TECHNICAL SUPPORT ENGINEER Work Phone: [facility] 06-20-2024 16:21-0500 Body mass index (BMI) [Ratio] 38.22 kg/m2 Zoila Panda SENIOR TECHNICAL SUPPORT ENGINEER Work Phone: [facility] 06-20-2024 16:21-0500 Body weight 117.39 kg Zoila Santa Cruz SENIOR TECHNICAL SUPPORT ENGINEER Work Phone: [facility] 06-20-2024 16:21-0500 Diastolic blood pressure 76 mm[Hg] Zoila Panda SENIOR TECHNICAL SUPPORT ENGINEER Work Phone: [facility] 06-20-2024 16:21-0500 Heart rate 67 /min Zoila Santa Cruz SENIOR TECHNICAL SUPPORT ENGINEER Work Phone: [facility] 06-20-2024 16:21-0500 Respiratory rate 17 /min Zoila Santa Cruz SENIOR TECHNICAL SUPPORT ENGINEER Work Phone: [facility] 06-20-2024 16:21-0500 SaO2% (BldA) [Mass fraction] 98 % Zoila Panda SENIOR TECHNICAL SUPPORT ENGINEER Work Phone: [facility] 06-20-2024 16:21-0500 Systolic blood pressure 138 mm[Hg] Zoila Panda SENIOR TECHNICAL SUPPORT ENGINEER Work Phone: [facility] 05-02-2024 15:27-0400 Body height 175.3 cm Zoila Santa Cruz SENIOR TECHNICAL SUPPORT ENGINEER Work Phone: [facility] 05-02-2024 15:27-0400 Body mass index (BMI) [Ratio] 36.48 kg/m2 Zoila Fountain SENIOR TECHNICAL SUPPORT ENGINEER Work Phone: [facility] 05-02-2024 15:27-0400 Body weight 112.04 kg Zoila Fountain SENIOR TECHNICAL SUPPORT ENGINEER Work Phone: [facility] 05-02-2024 15:27-0400 Diastolic blood pressure 92 mm[Hg] Zoila Fountain SENIOR TECHNICAL SUPPORT ENGINEER Work Phone: [facility] 05-02-2024 15:27-0400 Heart rate 72 /min Zoila Fountain SENIOR TECHNICAL SUPPORT ENGINEER Work Phone: [facility] 05-02-2024 15:27-0400 SaO2% (BldA) [Mass fraction] 95 % Zoila Fountain SENIOR TECHNICAL SUPPORT ENGINEER Work Phone: [facility] 05-02-2024 15:27-0400 Systolic blood pressure 140 mm[Hg] Zoila Fountain SENIOR TECHNICAL SUPPORT ENGINEER Work Phone: [facility] 10-30-2023 13:10-0400 Diastolic blood pressure 86 mm[Hg] MD Spencer Mast Work Phone: [facility] 10-30-2023 13:10-0400 Heart rate 62 /min MD Spencer Mast Work Phone: [facility] 10-30-2023 13:10-0400 Respiratory rate 16 /min MD Spencer Mast Work Phone: [facility] 10-30-2023 13:10-0400 SaO2% (BldA) [Mass fraction] 98 % MD Spencer Mast Work Phone: [facility] 10-30-2023 13:10-0400 Systolic blood pressure 140 mm[Hg] MD Spencer Mast Work Phone: [facility] 10-30-2023 12:40-0400 Inhaled oxygen flow rate 6 L/min MD Spencer Mast Work Phone: [facility] 10-30-2023 12:25-0400 Body height 175.26 cm MD Spencer Mast Work Phone: [facility] 10-30-2023 12:25-0400 Body mass index (BMI) [Ratio] 34.9 kg/m2 MD Spencer Mast Work Phone: [facility] 10-30-2023 12:25-0400 Body weight 107.5 kg MD Spencer Mast Work Phone: [facility] 10-30-2023 10:15-0400 Body temperature 97.7 [degF] MD Spencer Mast Work Phone: [facility] 08-31-2023 15:03-0500 Body height 175.26 cm MD Spencer Mast Work Phone: [facility] 08-31-2023 15:03-0500 Body mass index (BMI) [Ratio] 34.9 kg/m2 MD Spencer Mast Work Phone: [facility] 08-31-2023 15:03-0500 Body weight 107.5 kg MD Spencer Mast Work Phone: [facility] 08-29-2023 11:25-0500 Body mass index (BMI) [Ratio] 35.12 kg/m2 Zoila Fountain SENIOR TECHNICAL SUPPORT ENGINEER Work Phone: [facility] 08-29-2023 11:25-0500 Body weight 107.86 kg Zoila Fountain SENIOR TECHNICAL SUPPORT ENGINEER Work Phone: [facility] 08-29-2023 11:25-0500 Diastolic blood pressure 83 mm[Hg] Zoila Fountain SENIOR TECHNICAL SUPPORT ENGINEER Work Phone: [facility] 08-29-2023 11:25-0500 Heart rate 70 /min Zoila Fountain SENIOR TECHNICAL SUPPORT ENGINEER Work Phone: [facility] 08-29-2023 11:25-0500 Respiratory rate 14 /min Zoila Fountain SENIOR TECHNICAL SUPPORT ENGINEER Work Phone: [facility] 08-29-2023 11:25-0500 SaO2% (BldA) [Mass fraction] 95 % Zoila Fountain SENIOR TECHNICAL SUPPORT ENGINEER Work Phone: [facility] 08-29-2023 11:25-0500 Systolic blood pressure 140 mm[Hg] Zoila Fountain SENIOR TECHNICAL SUPPORT ENGINEER Work Phone: [facility] 08-02-2023 09:05-0500 Body height 175.26 cm Leidy Yaquelin Other [facility] 08-02-2023 09:05-0500 Body mass index (BMI) [Ratio] 35.47 kg/m2 Leidy Yaquelin Other [facility] [employer] Other 08-02-2023 09:05-0500 Body temperature 97.1 [degF] Leidy Yaquelin Other [facility] [employer] Other 08-02-2023 09:05-0500 Body weight 108.95 kg Leidy Yaquelin Other [facility] 08-02-2023 09:05-0500 Diastolic blood pressure 74 mm[Hg] Leidy Yaquelin Other [facility] 08-02-2023 09:05-0500 Respiratory rate 18 /min Leidy Yaquelin Other [facility] [employer] Other 08-02-2023 09:05-0500 SaO2% (BldA) [Mass fraction] 89 % Leidy Yaquelin Other [facility] [employer] Other 08-02-2023 09:05-0500 Systolic blood pressure 122 mm[Hg] Leidy Yaquelin Other [facility] 06-18-2021 13:30-0500 Diastolic blood pressure 80 mm[Hg] Spencer Watkinsa Work Phone: [facility] 250 DO Work Phone: 06-18-2021 13:30-0500 Systolic blood pressure 122 mm[Hg] Rugen M [place] Work Phone: [facility] 250 DO Work Phone: 06-18-2021 13:28-0500 Body height 177.8 cm Rugen M [place] Work Phone: [facility] 250 DO Work Phone: 06-18-2021 13:28-0500 Body mass index (BMI) [Ratio] 34.72 kg/m2 Rugen M [place] Work Phone: [facility] 250 DO Work Phone: 06-18-2021 13:28-0500 Body surface area Derived from formula 2.26 m2 Rugen M Pro Work Phone: [facility] 250 DO Work Phone: 06-18-2021 13:28-0500 Body weight 109.77 kg Rugen Deysi Pro Work Phone: [facility] 250 DO Work Phone: 06-18-2021 13:28-0500 Diastolic blood pressure 72 mm[Hg] Rugen M [place] Work Phone: [facility] 250 DO Work Phone: 06-18-2021 13:28-0500 Heart rate 78 /min Rugen M Pro Work Phone: [facility] 250 DO Work Phone: 06-18-2021 13:28-0500 Systolic blood pressure 124 mm[Hg] Rugen M [place] Work Phone: [facility] 250 DO Work Phone: 05-28-2021 14:21-0500 Diastolic blood pressure 98 mm[Hg] Rugen M Pro Work Phone: [facility] 250 DO Work Phone: 05-28-2021 14:21-0500 Systolic blood pressure 160 mm[Hg] Rugen Deysi Pro Work Phone: [facility] 250 DO Work Phone: 05-28-2021 14:13-0500 Body height 177.8 cm Rugen Deysi [place] Work Phone: [facility] 250 DO Work Phone: 05-28-2021 14:13-0500 Body mass index (BMI) [Ratio] 34.87 kg/m2 Rugen Deysi [place] Work Phone: [facility] 250 DO Work Phone: 05-28-2021 14:13-0500 Body surface area Derived from formula 2.27 m2 Rugen Deysi Pro Work Phone: [facility] 250 DO Work Phone: 05-28-2021 14:13-0500 Body weight 110.22 kg Rugen Deysi [place] Work Phone: [facility] 250 DO Work Phone: 05-28-2021 14:13-0500 Diastolic blood pressure 108 mm[Hg] Rugen Deysi [place] Work Phone: [facility] DO Work Phone: 05-28-2021 14:13-0500 Heart rate 71 /min Rugen Deysi Pro Work Phone: [facility] 250 DO Work Phone: 05-28-2021 14:13-0500 Systolic blood pressure 162 mm[Hg] Rugen M [place] Work Phone: [facility] DO Work Phone: Encounters Encounter Date Encounter Type Care Provider Facility Start: 01-06-2025 End: 01-06-2025 ambulatory ANGELYCATHY MUNOZ [facility] Start: 12-18-2024 End: 12-19-2024 Clinisync Result Encounter Generic External Data Provider [facility] Unsolicited Start: 12-18-2024 End: 12-19-2024 Clinisync Result Encounter Generic External Data Provider [facility] External Department Unsolicited Start: 12-13-2024 End: 12-19-2024 Clinisync Result Encounter Generic External Data Provider [facility] External Department Unsolicited Start: 12-13-2024 End: 12-19-2024 Clinisync Result Encounter Generic External Data Provider [facility] External Department Unsolicited Start: 12-12-2024 End: 12[facility]12[facility] Start: 11-29-2024 End: 11-29-2024 ambulatory MUSEUM DOCENT REBEKAH [facility] Start: 11-26-2024 End: 11-26-2024 Bamboo flowsheet Zoila Fountain SENIOR TECHNICAL SUPPORT ENGINEER Work Phone: [facility] Start: 11-26-2024 End: 11-26-2024 Bamboo flowsheet Zoila Fountain SENIOR TECHNICAL SUPPORT ENGINEER Work Phone: [facility] Start: 11-26-2024 End: 11-26-2024 Office outpatient visit 15 minutes Zoila Fountain SENIOR TECHNICAL SUPPORT ENGINEER Work Phone: [facility] Comment on above: Insomnia, unspecifie d type (Primary Dx); Type 2 diabetes mellitus with hyperglycemia, unspecified whether halfway insulin use ([facility]); Flatulence Start: 11-26-2024 End: 11-26-2024 ambulatory ZOILA FOUNTAIN Not Available Start: 11-22-2024 End: 11-22-2024 Clinisync Result Encounter Generic External Data Provider [facility] External Department Unsolicited Start: 11-22-2024 End: 11-22-2024 Clinisync Result Encounter Generic External Data Provider [facility] External Department Unsolicited Start: 11-13-2024 End: 11-13-2024 ambulatory NIKKO [facility] Start: 11-08-2024 End: 11-08-2024 Clinisync Result Encounter Generic External Data Provider [facility] External Department Unsolicited Start: 11-08-2024 End: 11-08-2024 Clinisync Result Encounter Generic External Data Provider [facility] External Department Unsolicited Start: 10-11-2024 End: 10-11-2024 Clinisync Result Encounter Generic External Data Provider [facility] External Department Unsolicited Start: 10-11-2024 End: 10-11-2024 Clinisync Result Encounter Generic External Data Provider [facility] External Department Unsolicited Start: 10-04-2024 End: 10-04-2024 ambulatory NIKKO [facility] Start: 09-12-2024 End: 09-12-2024 ambulatory Spencer Mast MD Work Phone: [facility] Work Phone: Start: 09-12-2024 End: 09-12-2024 Patient encounter procedure Spencer Mast MD Work Phone: [facility] Work Phone: Start: 09-05-2024 End: 09-16-2024 [...] Start: 08-19-2024 End: 08-19-2024 Bamboo flowsheet Oziel Sage PT Work Phone: [facility] Start: 08-19-2024 End: 08-19-2024 Bamboo flowsheet Oziel Sage PT Work Phone: [...] 08-14-2024 ambulatory Spencer Mast MD Work Phone: [facility] Work Phone: Start: 08-14-2024 End: 08-14-2024 Patient encounter procedure Spencer Mast MD Work Phone: [facility] Work Phone: Start: 08-12-2024 End: 08-13-2024 ambulatory Jethro Ware GARDEN WORKER [facility] Comment on above: Strain of right shou lder, initial encounter (Primary Dx) Start: 08-12-2024 End: 08-12-2024 Bamboo flowsheet Jethro Ware GARDEN WORKER [facility] Start: 08-12-2024 End: 08-12-2024 Bamboo flowsheet Jethro Ware GARDEN WORKER [facility] Start: 08-08-2024 End: 08-08-2024 ambulatory OZIEL SAGE Not Available Start: 08-08-2024 End: 08-08-2024 Bamboo flowsheet Oziel Sage PT Work Phone: [facility] Start: 08-08-2024 End: 08-08-2024 Bamboo flowsheet Oizel Sage PT Work Phone: [facility] Start: 08-08-2024 End: 08-08-2024 ambulatory Spencer Mast MD Work Phone: [facility] Work Phone: Comment on above: Strain of right shou lder, initial encounter (Primary Dx) Start: 08-08-2024 End: 08-08-2024 Patient encounter procedure Spencer Mast MD Work Phone: [facility] Work Phone: Start: 08-06-2024 End: 08-07-2024 [...] Office outpatient visit 25 minutes Zoila Fountain SENIOR TECHNICAL SUPPORT ENGINEER Work Phone: [facility] Comment on above: Laryngitis (Primary Dx); Type 2 diabetes mellitus with hyperglycemia (CMS/HCC); Type 2 diabetes mellitus with diabetic chronic kidney disease (CMS/HCC); Chronic kidney disease, stage 3a (HCC) (CMS/HCC); Morbid (severe) obesity due to excess calories (CMS/HCC); Essential (primary) hypertension ([facility]/HCC); Body mass index (BMI) 38.0-38.9, adult; Pulmonary hypertension, unspecified ([facility]/HCC) Start: 08-01-2024 End: 08-01-2024 ambulatory ZOILA FOUNTAIN Not Available Start: 08-01-2024 End: 08-01-2024 Bamboo flowsheet Zoila Fountain SENIOR TECHNICAL SUPPORT ENGINEER Work Phone: [facility] Start: 08-01-2024 End: 08-01-2024 Bamboo flowsheet Zoila Fountain SENIOR TECHNICAL SUPPORT ENGINEER Work Phone: [facility] Start: 07-26-2024 End: 07-26-2024 ambulatory Spencer Mast MD Work Phone: [facility] Work Phone: Start: 07-26-2024 End: 07-26-2024 Patient encounter procedure Spencer Mast MD Work Phone: [facility] [address] Work Phone: Start: 07-25-2024 End: 07-25-2024 ambulatory Darryl Moncada GARDEN WORKER [facility] Comment on above: Strain of right shou lder, initial encounter (Primary Dx) Start: 07-23-2024 End: 07-23-2024 ambulatory Darryl Moncada GARDEN WORKER [facility] Comment on above: Strain of right shou lder, initial encounter (Primary Dx) Start: 07-23-2024 End: 07-23-2024 Bamboo flowsheet Darryl Moncada GARDEN WORKER [facility] Start: 07-23-2024 End: 07-23-2024 Bamboo flowsheet Darryl Moncada GARDEN WORKER [facility] Start: 07-22-2024 End: 07-22-2024 Patient encounter procedure Spencer Mast MD Work Phone: [facility] [address] [facility] Work Phone: Start: 07-22-2024 End: 07-22-2024 ambulatory Spencer Mast MD Work Phone: [facility] Work Phone: Start: 07-18-2024 End: [...] 07-11-2024 End: 07-11-2024 Bamboo flowsheet Jethro Brink GARDEN WORKER [facility] Start: 07-11-2024 End: 07-11-2024 Bamboo flowsheet Jethro Brink GARDEN WORKER [facility] Start: 07-11-2024 End: 07-11-2024 ambulatory Jethro Brink GARDEN WORKER [facility] Comment on above: Strain [...] Start: 07-05-2024 End: 07-08-2024 Telephone encounter Oziel T Blackston PT Work Phone: [facility] Comment on above: PT thru C-[facility] Start: 07-04-2024 End: 07-04-2024 ambulatory Spencer Mast Facility:[facility] Start: 07-04-2024 End: 07-04-2024 Patient encounter procedure Spencer Mast MD Work Phone: [facility] [address] Work Phone: Start: 06-25-2024 End: 06-25-2024 Patient encounter procedure Spencer Mast MD Work Phone: [facility] [address] Work Phone: Start: 06-25-2024 End: 06-25-2024 ambulatory Spencer Mast Facility:[facility] Start: 06-20-2024 End: 06-20-2024 Office outpatient visit 25 minutes Zoila Fountain SENIOR TECHNICAL SUPPORT ENGINEER Work Phone: [facility] Comment on above: Laryngitis (Primary Dx) Start: 06-20-2024 End: 06-20-2024 ambulatory ZOILA FOUNTAIN Not Available Start: 06-20-2024 End: 06-20-2024 Bamboo flowsheet Zoila Fountain SENIOR TECHNICAL SUPPORT ENGINEER Work Phone: [facility] Start: 06-20-2024 End: 06-20-2024 Bamboo flowsheet Zoila Fountain SENIOR TECHNICAL SUPPORT ENGINEER Work Phone: [facility] Start: 05-02-2024 End: 05-02-2024 Office outpatient visit 25 minutes Zoila Fountain SENIOR TECHNICAL SUPPORT ENGINEER Work Phone: [facility] Comment on above: Laryngitis, acute (P rimary Dx); Acute pain of right knee Start: 05-02-2024 End: 05-02-2024 ambulatory ZOILA FOUNTAIN Not Available Start: 03-13-2024 End: 03-13-2024 ambulatory [facility] Work Phone: Start: 03-13-2024 End: 03-13-2024 Patient encounter procedure [facility] Work Phone: Start: 03-06-2024 End: 03-06-2024 ambulatory [facility] Work Phone: Start: 03-06-2024 End: 03-06-2024 Patient encounter procedure [facility] Work Phone: Start: 02-26-2024 End: 02-26-2024 ambulatory [facility] Start: 02-13-2024 End: 02-13-2024 ambulatory ZOILA M PANDA Not Available Start: 02-01-2024 End: 02-01-2024 ambulatory [facility] Start: 01-25-2024 End: 01-25-2024 ambulatory ZOILA M PANDA Not Available Start: 01-16-2024 End: 01-16-2024 ambulatory ZOILA M PANDA Not Available Start: 01-09-2024 End: 01-09-2024 ambulatory ZOILA M PANDA Not Available Start: 12-13-2023 End: 12-13-2023 ambulatory ZOILA M PANDA Not Available Start: 12-06-2023 End: 12-06-2023 ambulatory ZOILA M PANDA Not Available Start: 11-29-2023 End: 11-29-2023 ambulatory ZOILA M PANDA Not Available Start: 10-30-2023 End: 10-30-2023 Admission to same day surgery center MD Spencer Mast Work Phone: [facility] [place] Start: 10-30-2023 End: 10-30-2023 ambulatory MD Spencer Mast Work Phone: [facility] Work Phone: Start: 08-31-2023 End: 08-31-2023 ambulatory MD Spencer Mast Work Phone: [facility] Work Phone: Start: 08-31-2023 End: 08-31-2023 Patient encounter procedure MD Rugen Pro Work Phone: [facility] [place] [facility] Work Phone: Start: 08-31-2023 End: 08-31-2023 Patient encounter procedure MD Spencer Mast Work Phone: [facility] [place] [facility] Start: 08-31-2023 End: 08-31-2023 ambulatory MD Spencer Mast Work Phone: [facility] Work Phone: Start: 08-29-2023 Chart abstracting Zoila pan SENIOR TECHNICAL SUPPORT ENGINEER Work Phone: [facility] Start: 08-29-2023 End: 08-29-2023 Office outpatient visit 25 minutes Zoila Fountain SENIOR TECHNICAL SUPPORT ENGINEER Work Phone: [facility] Comment on above: Bronchitis (Primary Dx); Left non-suppurative otitis media Start: 08-02-2023 (URG) Urgent Care Visit Leidy paniagua [facility] [place] Start: 08-02-2023 End: 08-02-2023 ambulatory Leidy Jamison Other [email or web address] Other Start: 08-02-2023 Telephone encounter Leidy Jamison [facility] [place] Start: 08-02-2023 End: 08-02-2023 Patient encounter procedure MD Spencer Mast Work Phone: [facility]- Start: 09-08-2022 End: 09-09-[address] SPENCER MAST Facility:[facility] Start: 06-06-2022 End: 06-07-[address] SPENCER MAST Facility:[facility] Start: 03-18-2022 End: 03-19-[address] JUDI WILSON Facility:[facility] Start: 03-14-2022 End: 03-15-[address] JUDI WILSON Facility:[facility] Start: 02-16-2022 End: 02-17-[address] SPENCER MAST Facility:[facility] Start: 01-27-2022 End: 01-27-2022 ambulatory FIORELLA BRONSON Facility: Start: 06-18-2021 Office outpatient vi sit 15 minutes Rugen M [place] Work Phone: [facility] 250 DO Work Phone: Start: 06-16-2021 NURSEVST, Provider: KAREN MORRIS TROUBLE LOCATER 1,[id number], Status: Pen, Time: 1:00 PM Rugen M [place] Work Phone: [facility] 250 DO Work Phone: Start: 06-14-2021 Chart Update Rugen M Pro Work Phone: [facility] 250 DO Work Phone: Start: 05-28-2021 Office consultation new/estab patient 60 min Rugen M [place] Work Phone: [facility] 250 DO Work Phone: Start: 05-28-2021 Patient encounter procedure Rugen M Pro Work Phone: [facility] 250 DO Work Phone: Start: 08-30-2016 End: 08-31-2016 Ambulatory DEFAULT PHYSICIAN Facility:[facility] Procedures Date Procedure Procedure Detail Performing Clinician Start: 12-18-2024 ITP Generic Ex ternal Data Provider Start: 12-13-2024 ITP Generic Ex ternal Data Provider Start: 11-26-2024 Hemoglobin glycosyla yohana a1c Zoila Fountain NP Work Phone: Start: 11-22-2024 ALL BASIC METABOLIC PANEL Generic External Data Provider Start: 11-22-2024 ALL PRO BNP Generic Ex ternal Data Provider Start: 11-08-2024 CA ECHO DOPPLER COMPLETE Generic External Data Provider Start: 10-11-2024 ALL BASIC METABOLIC PANEL Generic External Data Provider Start: 10-11-2024 ALL PRO BNP Generic Ex ternal Data Provider Start: 07-22-2024 MRI of right shoulder William Mast MD Work Phone: Start: 06-25-2024 Plain X-ray of right shoulder Spencer Mast MD Work Phone: Start: 11-03-2023 Colonoscopy Zoila pan SENIOR TECHNICAL SUPPORT ENGINEER Work Phone: Start: 10-30-2023 Colonoscopy MD Spencer Cuevas lda Work Phone: Start: 08-31-2023 Pelvis X-ray MD Spencer Cuevas lda Work Phone: Start: 08-31-2023 X-ray of both knees MD Spencer Mast Work Phone: Appendectomy Spencer Watkinsa Work Phone: Coronary artery bypa ss graft Spencer Jo [place] Work Phone: Hernia repair Spencer Watkinsa Work Phone: History of coronary artery bypass grafting S/P CABG (coronary artery bypass graft) Spencer Watkinsa Work Phone: Lithotripsy Spencer Mast Work Phone: Operative procedure on knee Spencer Mast Work Phone: NEGATED: Highlighted row has not occurred! Total colonoscopy Spencer Mast Work Phone: Plan of Treatment Date Care Activity Detail Author Start: 11-02-2033 Screening for malign ant neoplasm of colon [facility] Start: 08-20-2026 Screening for malign ant neoplasm of colon FIT-DNA [facility] Start: 06-16-2025 Influenza vaccination [facility] Comment on above: Postponed from 03/17 (Other Medical Reasons) Postponed from 03/17 (Other Medical Reasons) Start: 02-26-2025 Hemoglobin A1c measurement Diabetes: Hemoglobin A1C [facility] Start: 02-26-2025 End: 02-26-2025 Patient encounter procedure 02/26/2025 11:30 AM EDT Office Visit [facility] [address] [place] [id number] Zoila Fountain NP [address] [place] [address] [facility] Start: 01-10-2025 Urine screening for protein Diabetes: Urine Protein Screening [facility] Start: 11-26-2024 End: 11-26-2024 Patient encounter procedure [facility] Comment on above: Arrived Start: 11-08-2024 Urine screening for protein Diabetes: Urine Protein Screening [facility] Start: 08-28-2024 End: 08-28-2024 ambulatory 08/28/2024 5:00 PM EST Treatment [facility] [address] [place] [address] Jethro Ware, GARDEN WORKER [facility] Start: 08-26-2024 End: 08-26-2024 ambulatory 08/26/2024 4:30 PM EST Treatment [facility] [address] [place] [address] Oziel Sage, PT [address] [place] [address] Arrived [facility] Comment on above: Arrived Start: 08-21-2024 End: 08-21-2024 ambulatory 08/21/2024 4:00 PM EST Treatment [facility] [address] [place] [address] Oziel Sage, PT [address] [place] [address] [facility] Start: 08-19-2024 End: 08-19-2024 [...] [address] [place] [address] Zoila Fountain, SENIOR TECHNICAL SUPPORT ENGINEER [address] [place] [address] Arrived [facility] Comment on above: Arrived Start: 07-25-2024 End: 07-25-2024 ambulatory 07/25/2024 2:30 PM EST Treatment [facility] [address] [place] [address] Darryl Moncada, GARDEN WORKER [facility] Start: 07-23-2024 End: 07-23-2024 [...] [address] [place] [address] Petty Jimenez, GARDEN WORKER [facility] Start: 07-11-2024 End: 07-11-2024 ambulatory [facility] Comment on above: Strain of right shou lder, initial encounter (Primary Dx) Start: 07-09-2024 End: 07-09-2024 ambulatory 07/09/2024 8:30 AM EST Evaluation [facility] [address] [place] [address] Oziel Sage, PT [address] [place] [address] [facility] Start: 06-20-2024 End: 06-20-2024 Patient encounter procedure 06/20/2024 4:30 PM EST Office Visit [facility] [address] [place] [address] Zoila Fountain NP [address] [facility] [address] [place] [address] Arrived [facility] Comment on above: [...] [address] [facility] [address] [place] [address] Zoila Fountain NP [address] [facility] [address] [place] [address] [facility] Start: 03-06-2024 Patient referral [facility] Work Phone: Start: 01-14-2024 Influenza vaccination Influenza Vacc ine (#1) [facility] Comment on above: Postponed from 03/17 (Other Patient Reasons) Start: 10-30-2023 [facility] Start: 10-04-2023 Hemoglobin A1c measurement Diabetes: Hemoglobin A1C [facility] Start: 09-04-2023 End: 09-04-2023 Patient encounter procedure 09/04/2023 2:30 PM EST Office Visit [facility] [address] [place] [address] Spencer Mast MD [address] [place] [address] [facility] Start: 08-29-2023 End: 08-29-2023 Patient encounter procedure 08/29/2023 11:30 AM EST Office Visit [facility] [address] [facility] 110 [place] [address] Zoila Fountain, SENIOR TECHNICAL SUPPORT ENGINEER 112 [facility] 110 [place] [address] [facility] Start: 01-21-2022 Screening for malign ant neoplasm of colon [facility] Start: 12-29-2021 FUV, Provider: Juanito Peterson, Status: Pen, Time: 1:40 PM FUV, Provider: Juanito Peterson, Status: Pen, Time: 1:40 PM -[facility] 250 DO Work Phone: Start: 08-25-2021 FUV, Provider: Juanito Peterson, Status: Pen, Time: 1:30 PM FUV, Provider: Juanito Peterson, Status: Pen, Time: 1:30 PM [facility] 250 DO Work Phone: Start: 06-16-2021 NURSEVST, Provider: KAREN MORRIS TROUBLE LOCATER 1,[id number], Status: Pen, Time: 1:00 PM NURSEVST, Provider: KAREN MORRIS TROUBLE LOCATER 1,[id number], Status: Pen, Time: 1:00 PM [facility] 250 DO Work Phone: Start: 1972 Pneumococcal Vaccine : 65+ Years (1 of 2 - PCV) Pneumococcal Vaccine: 65+ Years (1 of 2 - PCV) [facility] Start: 1959 Pneumococcal Vaccine : 65+ Years (1 of 2 - PCV) Pneumococcal Vaccine: 65+ Years (1 of 2 - PCV) [facility] Start: 1953 Screening for malign ant neoplasm of colon [facility] Patient Education Colonoscopy (D C) Colon Polypectomy (DC) [facility] Work Phone: Patient referral [facility] Work Phone: Immunizations Immunization Date Immunization Notes Care Provider Fa cility 11-11-2020 [employer] COVI D-19 Vacc 30 MCG/0.3ML Intramuscular Suspension Spencer Mast Work Phone: [facility] DO Work Phone: 10-21-2020 Pf[employer] COVI D-19 Vacc 30 MCG/0.3ML Intramuscular Suspension Spencer Mast Work Phone: [facility] 250 DO Work Phone: Payers Date Payer Category Payer Medicare (Managed Care) [facility] MEDIC[facility] [id number] 2024 Medicare [id number] 2024 Medicare [id number] 2024 Unknown [id number] 2024 Worker's Compensation [id number] 2024 Worker's Compensation 1.2.84 [id number] 2023 Self-pay [id number] 2017 Blue Cross Blue Shield 1.2.8 [id number] 2017 Unknown 2017 Unknown [id number] 1959 Unknown [id number] 1953 Unknown [id number] 2.16.840.1.060715.3.579.2. 593 1953 Unknown [id number] 2.16.840.1.370953.3.579.2. 593 1953 Unknown [id number] 2.16.840.1.777005.3.579.2. 593 1953 Unknown [id number] 2.16.840.1.957269.3.579.2. 593 1953 Unknown [id number] 2.16.840.1.624571.3.579.2. 593 1953 Unknown [id number] 2.16.840.1.045590.3.579.2. 593 1953 Unknown [id number] 2.16.840.1.192787.3.579.2. 593 1953 Unknown [id number] 2.16.840.1.471565.3.579.2. 1259 1953 Unknown [id number] 2.16.840.1.642664.3.579.2. 1259 1953 Unknown [id number] 2.16.840.1.496764.3.579.2. 1259 1953 Unknown [id number] 2.16.840.1.149548.3.579.2. 1259 1953 Unknown [id number] 2.16.840.1.378693.3.579.2. 1259 1953 Unknown [id number] 2.16.840.1.451779.3.579.2. 1259 1953 Unknown [id number] 2.16.840.1.460365.3.579.2. 1259 1953 Unknown [id number] 2.16.840.1.651598.3.579.2. 1259 1953 Unknown [id number] 2.16.840.1.437617.3.579.2. 1258 1953 Unknown [id number] 2.16.840.1.870530.3.579.2. 1258 1953 Unknown [id number] 2.16.840.1.905419.3.579.2. 1258 1953 Unknown [id number] 2.16.840.1.103146.3.579.2. 1258 1953 Unknown [id number] 2.16.840.1.246878.3.579.2. 1258 1953 Unknown [id number] 2.16.840.1.004699.3.579.2. 1258 1953 Unknown [id number] 2.840.1.672115.3.579.2. 1258 1953 Unknown [id number] 2..840.1.915513.3.579.2. 1258 1953 Unknown [id number] 2..840.1.597540.3.579.2. 1258 1953 Unknown [id number] 2.16.840.1.732493.3.579.2. 1258 1953 Unknown [id number] 2.16.840.1.255822.3.579.2. 1258 1953 Unknown [id number] 2.16.840.1.706475.3.579.2. 1258 1953 Unknown [id number] 2.16.840.1.430189.3.579.2. 1258 1953 Unknown [id number] 2.16.840.1.854251.3.579.2. 1258 1953 Unknown [id number] 2.16.840.1.274361.3.579.2. 125 1953 Unknown [id number] 2.16.840.1.747418.3.579.2. 1258 1953 Unknown [id number] 2.16.840.1.782651.3.579.2. 1258 1953 Unknown [id number] 2.16.840.1.082070.3.579.2. 1258 1953 Unknown [id number] 2.16.840.1.575209.3.579.2. 1258 1953 Unknown [id number] 2.16.840.1.198939.3.579.2. 1258 1953 Unknown [id number] 2.16.840.1.697762.3.579.2. 1258 1953 Unknown [id number] 2.16.840.1.286713.3.579.2. 1258 1953 Unknown [id number] 2.16.840.1.728595.3.579.2. 1258 1953 Unknown [id number] 2.16.840.1.168323.3.579.2. 1258 1953 Unknown [id number] 2.16.840.1.569925.3.579.2. 1258 1953 Unknown [id number] 2.16.840.1.599839.3.579.2. 1258 1953 Unknown [id number] 2.16.840.1.099965.3.579.2. 1259 Unknown [facility] [id number] Unknown [id number] 2.16.840.1.910070.3.579.2. 531 Unknown [id number] 2.16.840.1.234823.3.579.2. 531 Unknown [id number] 2.16.840.1.366411.3.579.2. 531 Unknown [id number] 2.16.840.1.253047.3.579.2. 531 Unknown [id number] 2.16.840.1.435009.3.579.2. 531 Unknown [id number] 2.16.840.1.515181.3.579.2. 531 Social History Date Type Detail Facility Start: 08-07-2023 End: 11-26-2024 No illicit drug use No illicit drug use [facility] [facility] DO Work Phone: Comment on above: Quit 43 years ago; Start: 08-07-2023 End: 11-26-2024 Sex Assigned At [facility] [address] Other Start: 02-14-2023 Tobacco smoking status NDIS Never smoked tobacco [facility] Start: 02-14-2023 Tobacco use and exposure Smokeless tobacco non-user [facility] Start: 08-07-2023 End: 11-26-2024 Alcohol intake Lifetime non-drinker (finding) [facility] Start: 1955 Sex Assigned At Not on file N [facility] Start: 08-02-2023 End: 10-30-2023 Tobacco smoking status NHIS Ex-smoker (finding) [facility] Start: 1955 Sex Assigned At Male F [facility] Start: 07-23-2024 End: 09-12-2024 Sex Male (finding) [facility] Goals Date Patient Goal Desired Activity /State Functional Status Date Assessment Result Facility 11-26-2024 Patient Health Quest ionnaire 2 item (PHQ-2) [Reported] [facility] Clinical Notes 05-27-2021 to 01-06-2025 Zoila Fountain, IBIS - 11/26/2024 9:00 AM EDTTelephone Encounter - Abeba Garcia - 09/16/2024 11:13 AM ESTTelephone Encounter - Abeba Garcia - 09/16/2024 11:13 AM EST Note Date & Type Note Facility 01-06-2025 Note Cardiac Electrophysi ology Consultation Reason for Consult: Atrial fibrillation, prior electrical cardioversion Referring Order Picker/Assembler/PCP: No ref. provider found HPI: Lisa is a very pleasant 69-year-old gentleman who has history of hypertension and early persistent atrial fibrillation who required electrical cardioversion with limited success. His additional history is notable for coronary artery disease with prior bypass surgery along with diabetes, hypertension and sleep apnea He comes in today and reports that in atrial fibrillation his symptoms are that of fatigue and palpitations and these have been going on for at least a few months. According to him, these symptoms last for at least a few hours and impose an impairment to his quality of life. Despite having electrical cardioversion, he has had recurrence of atrial fibrillation. He denies any symptoms of syncope/presyncope. Electrophysiology History: Early persistent atrial fibrillation, [id number] score of 5 based on age, hypertension, diabetes, coronary artery disease Has bled score of at least 3 based on age, hypertension and vascular disease Medical History[1] Diabetes Coronary artery disease status post bypass surgery Obstructive sleep apnea Hypertension CKD Moderate mitral regurgitation Surgical History[2] Current Medications[3] Physical Examination: BP 150/90 (BP Location: Left arm, Patient Position: Sitting, BP Cuff Size: Adult) Pulse 72 Ht 1.778 m (5' 10 ) Wt 99.8 kg (220 lb) SpO2 98% BMI 31.57 kg/m??? Gen: No acute distress Neck: No LAD, No JVD elevation CVS: S1, S2 normal, no rubs, no murmurs Pulm: CTABL Abdomen: NTND Neuro: AAO x 3 Extremity: No edema Psych: Mood and affect is normal .labs No results found for: WBC , HGB , HCT , MCV , PLT No results found for: GLUCOSE , CALCIUM , NA , K , CO2 , CL , BUN , CREATININE EKG: Encounter Date: 11/29/24 ECG 12 lead Result Value Ventricular Rate 62 Atrial Rate 62 GA Interval 168 QRS DURATION 92 QT Interval 476 QTC CALCULATION(BAZETT) 483 P [place] 74 R-[place] 21 T Wave [place] -15 Impression Sinus rhythm with occasional Premature ventricular complexes Prolonged QT Abnormal ECG Compared to tracing of 29-NOV-2024 09:47 Sinus rhythm has replaced Atrial fibrillation Confirmed by Yvonne GRANGER, L.S. (2) on 11/29/2024 11:34:20 AM I personally reviewed this EKG and assessed the findings myself Transesophageal echo (CADEN) Result Date: 11/29/2024 [facility] Heart Station [address] [place] [address] [phone] (fax) Transesophageal Echocardiogram-[facility] Name: LISA JURADO Study Date: 11/29/2024 10:13 AM B/P: 164 mmHg/122 mmHg HR: Date of : 1955 Location: [facility] Height: 70 in. Age: 69 year(s) Patient Room: Weight: 257 lb. Gender: Male Patient Status: OutPt BSA: 2.32 m2 Indication: Atrial Fibrillation, Pre-cardioversion, Mitral regurgitation Examination: CADEN (Transesophageal Echo / CFI), Limited Doppler Image Quality: Adequate Patient Consent: Informed, written consent was obtained for the procedure Examination: A CADEN was performed without complications Exam Location: A CADEN was performed in the Social Services Designee without complications Anesthesia Pharyngeal anesthesia with viscous Lidocaine Conclusions Left Ventricle: The left ventricle is normal size. Global left ventricular systolic function is normal. Right Ventricle: The right ventricle appears normal in size. Right ventricular systolic function appears normal. LeftAtrium: The left atrium is severely enlarged. Mitral [...] Left Ventricle: The left ventricle is normal si (more content not included)... [facility] 12-12-2024 Note [facility] Cardiology Clinic Note Chief Complaint: Patient here for follow up s/p CADEN and DCCV. Patient states he is feeling good. No cardiac complaints. Patient patient seen Nephrology. Patient was given a blood pressure pill by nephrology. HPI: Lisa Jurado is a 69 y.o. male Who has resistant hypertension and history of coronary artery disease here in routine follow-up His blood pressure readings from home are scattered all over; for the most part they are between 1 30-1 70 systolic. There are occasional readings above or below this. He is asymptomatic apart from when his blood pressure is elevated he has headaches. Update 12/12/2024: Was discovered to have atrial fibrillation; scheduled for a CADEN and cardioversion. This was performed successfully. Is doing well since. His initial symptom was shortness of breath; this improved dramatically after his CADEN and cardioversion. No new symptoms. Only drinks 1 cup of coffee daily. Cardiology ROS: Review of Systems Musculoskeletal: Positive for arthritis, falls and joint pain. Neurological: Positive for headaches (when BP is elevated) and light-headedness. All other systems reviewed and are negative. Past Medical History He has a past medical history of Chronic kidney disease, Coronary artery disease, Diabetes mellitus ([facility]), Hypertension, and Sleep apnea. Surgical History He has a past surgical history that includes Coronary artery bypass graft; Cardiac catheterization; Hand tendon surgery; Appendectomy; Knee Arthroplasty; and Hernia repair. Social History He reports that he has quit smoking. His smoking use included cigarettes. He has never used smokeless tobacco. He reports that he does not currently use alcohol. He reports that he does not use drugs. Family History Family History Problem Relation Name Age of Onset Coronary artery disease Mother Coronary artery disease Father Coronary artery disease Brother ALS Brother Stroke Brother Allergies Patient has no known allergies. Medications Current Outpatient Medications: apixaban (Eliquis) 5 mg tablet, Take 1 tablet (5 mg) by mouth two times daily., Disp: 60 tablet, Rfl: 3 aspirin 81 mg chewable tablet, Chew 81 mg in the morning., Disp: , Rfl: atorvastatin (Lipitor) 80 mg tablet, Take 80 mg by mouth at bedtime., Disp: , Rfl: carvedilol (Coreg) 25 mg tablet, Take 1 tablet (25 mg) by mouth with breakfast and with evening meal., Disp: 180 tablet, Rfl: 3 cloNIDine (Catapres) 0.2 mg tablet, Take 0.3 mg by mouth two times daily., Disp: , Rfl: cyclobenzaprine (Flexeril) 10 mg tablet, take 1 tablet by mouth three times a day as needed for spasm, Disp: , Rfl: dapagliflozin (Farxiga) 10 mg, Take 1 tablet by mouth in the morning., Disp: , Rfl: ezetimibe (Zetia) 10 mg tablet, Take 1 tablet (10 mg) by mouth in the morning., Disp: 30 tablet, Rfl: 11 ezetimibe (Zetia) 10 mg tablet, Take 1 tablet (10 mg) by mouth in the morning., Disp: 30 tablet, Rfl: 11 furosemide (Lasix) 40 mg tablet, Take 1 tablet (40 mg) by mouth in the morning., Disp: 90 tablet, Rfl: 3 isosorbide mononitrate ER (Imdur) 120 mg 24 hr tablet, Take 120 mg by mouth in the evening., Disp: , Rfl: lisinopril 40 mg tablet, Take 1 tablet by mouth in the morning., Disp: , Rfl: meloxicam (Mobic) 15 mg tablet, Take 1 tablet by mouth in the morning., Disp: , Rfl: metFORMIN (Glucophage) 500 mg tablet, TAKE 1 TABLET BY MOUTH WITH BREAKFAST AND WITH EVENING MEAL, Disp: 60 tablet, Rfl: 0 semaglutide (Rybelsus) 7 mg tablet, Take 1 tablet by mouth in the morning., Disp: , Rfl: terazosin (Hytrin) 2 mg capsule, TAKE 3 CAPSULES BY MOUTH AT BEDTIME, Disp: 270 capsule, Rfl: 0 traZODone (Desyrel) 100 mg tablet, Take 200 mg by mouth at bedtime., Disp: , Rfl: Last Recorded Vitals BP (!) 154/99 (BP Location: Right arm, Patient Position: Sitting) Pulse 75 Ht 1.778 m (5' 10 ) Wt 108 kg (239 lb) SpO2 96% BMI 34.29 kg/m??? Physical Examination: GENERAL: alert and oriented [...] to first diagonal. 5. Reverse saphenous vein fro (more content not included)... [facility] 11-29-2024 Note Patient: Lisa locke Procedure Information Date/Time: 11/29/24 1035 Procedure: Cardioversion - PC APPROVED Location: [facility] SENIOR INTERNAL AUDITOR HOLDING ROOM / [facility] (Cath) Providers: Musa Rahman MD Clinical information reviewed: Allergies Meds Physical Exam Airway Mallampati: III TM distance: >3 FB Neck ROM: full Cardiovascular Rhythm: regular Rate: normal Dental Pulmonary Breath sounds clear to auscultation Abdominal Anesthesia Plan ASA 3 other (Conscious sedation.) Anesthetic plan and risks discussed with patient. Use of blood products discussed with patient who consented to blood products. Additional Equipment Requests [facility] 11-26-2024 History of Present illness Narrative Images from the original note were not included. Subjective Patient ID: Lisa Jurado is a 69 y.o. male who presents for No chief complaint on file.. Pt has had a lot of gas production. Has gas every time he eats. Does eat brocolli, beans, cabbage and carbonated beverage.Cardiology reported to pt that he has fluid around the heart and and in his lungs. He will be getting a transesophageal echo on Monday. Pt also reports insomnia. Has tried Melatonin, Trazodone, Tylenol PM. Does not drink any caffeine in the evening. Does not sleep with TV on. Current Outpatient Medications on File Prior to [...] morning. Take before meals. 90 tablet 3 terazosin (Hytrin) 2 MG capsule [...] Smokeless tobacco: Never Vaping Use Vaping status: Never Used Substance Use Topics Alcohol use: Never Drug [...] Review of Systems Constitutional: Negative. HENT: Negative. Eyes: Negative. Respiratory: Negative. Cardiovascular: Negative. Gastrointestinal: Excessive flatulence Genitourinary: Negative. Musculoskeletal: Negative. Skin: Negative. Neurological: Negative. Psychiatric/Behavioral: Positive for sleep disturbance. Objective Physical Exam Vitals reviewed. Constitutional: Appearance: Normal appearance. HENT: Head: Normocephalic. Nose: Nose normal. Mouth/Throat: Mouth: Mucous membranes are moist. Pharynx: Oropharynx is clear. Eyes: Conjunctiva/sclera: Conjunctivae normal. Cardiovascular: Rate and Rhythm: Normal rate. Pulmonary: Effort: Pulmonary effort is normal. Abdominal: General: Bowel sounds are normal. Palpations: Abdomen is soft. Skin: General: Skin is warm and dry. Neurological: General: No focal deficit present. Mental Status: He is alert and oriented to person, place, and time. Psychiatric: Mood and Affect: Mood normal. Behavior: Behavior normal. Assessment/Plan Diagnoses and all orders for this visit: Insomnia, unspecified type Discussed sleep hygiene with the patient. Encouraged patient to try to go to bed at the same time every night and wake up at the same time each morning. Also encouraged patient to use the bed for sleep and intimacy only. Avoid stimulating activities before bed, i.e. use of electronic devices, watching TV. Avoid exercise within 4 hours of going to bed. Avoid caffeine within 6 hours of going to bed. Keep bedroom cool and dark. Avoid nicotine and alcohol. Type 2 diabetes mellitus with hyperglycemia, unspecified whether halfway insulin use ([facility]) - POCT Glycated hemoglobin, total A1C elevated. Pt does not want any adjustments to medications. He wants to try to get it down with his diet. Discussed today the importance of proper diabetic control. Discussed possible complications of diabetes, including loss of vision, renal failure, increased risk of heart attacks and strokes, blood vessel and/or nerve damage. Reviewed the recommended changes to reduce your blood sugars and minimize the risk of these complications. Reviewed diabetic goals, including keeping A1C <7.0% and blood pressure < 130/70. The plan for achieving these goals is adherence to medications, maintaining a healthy and balanced diet, and regular activity as discussed during today's visit. Discussed current barriers to achieving these goals. Discussed dietary goals. Discussed decreasing carbohydrates and simple sugar intake. Reviewed portion control with the patient. If the patient still has questions on this, a referral to a Dietitian can be arranged. Reviewed medications that aid in diabetic control. Discussed proper dosing and educated the patient on possible side effects and complications. The patient verbalized understanding of these instructions. Flatulence Pt has been constipated. He is drinking a fiber drink. Explained that this can contribute to the gas. He will stop the fiber drink and get his constipation under control with some Miralax and see if this corrects the excessive gas. If there is no improvement, he will come back. No follow-ups on file. documented in this encounter [facility] 11-13-2024 Note SUBJECTIVE Reason for Visit: Lisa Jurado is a 69 y.o. year old male patient being seen for 3 week follow-up visit. HPI: Lisa Jurado is a 69 y.o. year old male with significant medical history of CAD status post CABG 2015, hypertension, CKD ( initially seen in [address] Goff), CELESTINA, obesity, DM, and palpitations. 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 11/13/2024 office visit: The patient was seen and evaluated in the office today. He continues to report dyspnea on exertion with mild activity. He admits to taking furosemide inconsistently, approximately 2-3 times per week. I reinforced the importance of adherence to this medication regimen. He denies chest pain, palpitations, lightheadedness, or dizziness. On physical exam, there is 1-2+ bilateral lower extremity edema. Radial pulses were irregularly irregular on manual palpation. A 12-lead ECG was performed and revealed atrial fibrillation, presumed new-onset, as there is no documented history of atrial fibrillation in prior notes. His most recent ECG was over a year ago, and the last event monitor dated 05/17/2023 showed sinus rhythm with PACs. He was started on a DOAC today, and provided with a two-month free supply. A transesophageal echocardiogram with possible cardioversion is tentatively planned. The patient is currently in no acute distress and continues to deny any awareness of palpitations. 10/04/2024 office visit: The patient was seen and evaluated at the bedside in the office today. He reports new-onset bloating/distention and dyspnea on exertion. His initial blood pressure was in the 180s, with a repeat measurement in the 160s. He states that home readings can occasionally reach systolic values in the 240s. When asked about his last nephrology visit, he reported it has been a few years. I strongly encouraged him to reestablish care with his vallez filter operator. He otherwise denies chest pain, palpitations, lightheadedness, or dizziness. 02/26/2024 office visit (Dr. Wilson): Chief Complaint: Patient here for 1 mo follow up hypertension. Spironolactone was switched to chlorthalidone at last visit. Had BMP last week. BP was 162/117 1 hour after taking morning meds today. The other day when he checked his BP 1 hour after meds it was 80/60. He was lightheaded at that time. He says PCP stopped furosemide a few months ago. His blood pressure readings from home are scattered all over; for the most part they are between 1 30-1 70 systolic. There are occasional readings above or below this. He is asymptomatic apart from when his blood pressure is elevated he has headaches. Past Medical History: Diagnosis Date Chronic kidney disease Coronary artery disease Diabetes mellitus (CMS/HCC) Hypertension Sleep apnea Past Surgical History: Procedure Laterality Date APPENDECTOMY CARDIAC CATHETERIZATION CORONARY ARTERY BYPASS GRAFT HAND TENDON SURGERY HERNIA REPAIR KNEE ARTHROPLASTY Patient Active Problem List Diagnosis Stage 3 chronic kidney disease (CMS/HCC) Hypertension Type 2 diabetes mellitus with diabetic chronic kidney disease (CMS/HCC) Coronary artery disease Benign prostatic hyperplasia 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 Hypomagnesemia Sequelae of other specified infectious and parasitic diseases Hypertension secondary to other renal disorders Bilateral primary osteoarthritis of knee Diabetic renal disease (CMS/HCC) Gastro-esophageal reflux disease without esophagitis Hyperlipidemia, unspecified Muscle weakness (generalized) Non-ST elevation (NSTEMI) myocardial infarction (CMS/HCC) Post-acute COVID-19 syndrome Adenomatous polyp of sigmoid colon Benign essential hypertension Chronic pain Diabetes mellitus (CMS/HCC) Elevated blood pressure reading Influenza Knee pain, left Laceration of mouth Maxillary fracture (CMS/HCC) Positive colorectal cancer screening using Cologuard test family history includes ALS in his brother; Coronary artery disease in his brother, father, and mother; Stroke in his brother. Social History Tobacco Use Smoking status: Former Types: Cigarettes Smokeless tobacco: Never Substance Use Topics Alcohol use: Not Currently OBJECTIVE Visit Vitals Smoking Status Former Physical Exam Constitutional: General Appearance: well-developed, appears stated age. Level of Distress: no acute distress. Neck: Jugular Veins: normal jugular venous pressure. Lungs: Auscultation: no rales or rhonchi and normal breath sounds. Cardiovascular: Rate And Rhythm: irregular Heart Sounds: positive murmur Extremities: +1-2 LE edema Peripheral Pulses: Pulses: full, irregular. Abdomen: Inspection and Palpation: non distended or tender and soft. Musculoskeletal: Inspect (more content not included)... [facility] 10-04-2024 Note SUBJECTIVE Reason for Visit: Lisa Jurado Vilma is a 69 y.o. year old male patient being seen for follow-up visit. HPI: Lisa Jurado Sr. is a 69 y.o. year old male with past medical history of CAD status post CABG, hypertension, CKD, CELESITNA, obesity, and palpitations. 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 For his kidney disease he was initially seen in [address] Goff. 10/04/2024 office visit: The patient was seen and evaluated at the bedside in the office today. He reports new-onset bloating/distention and dyspnea on exertion. His initial blood pressure was in the 180s, with a repeat measurement in the 160s. He states that home readings can occasionally reach systolic values in the 240s. When asked about his last nephrology visit, he reported it has been a few years. I strongly encouraged him to reestablish care with his vallez filter operator. He otherwise denies chest pain, palpitations, lightheadedness, or dizziness. 02/26/2024 office visit (Dr. Wilson): Chief Complaint: Patient here for 1 mo follow up hypertension. Spironolactone was switched to chlorthalidone at last visit. Had BMP last week. BP was 162/117 1 hour after taking morning meds today. The other day when he checked his BP 1 hour after meds it was 80/60. He was lightheaded at that time. He says PCP stopped furosemide a few months ago. His blood pressure readings from home are scattered all over; for the most part they are between 1 30-1 70 systolic. There are occasional readings above or below this. He is asymptomatic apart from when his blood pressure is elevated he has headaches. Past Medical History: Diagnosis Date Chronic kidney disease Coronary artery disease Diabetes mellitus (CMS/HCC) Hypertension Sleep apnea Past Surgical History: Procedure Laterality Date APPENDECTOMY CARDIAC CATHETERIZATION CORONARY ARTERY BYPASS GRAFT HAND TENDON SURGERY HERNIA REPAIR KNEE ARTHROPLASTY Patient Active Problem List Diagnosis Stage 3 chronic kidney disease (CMS/HCC) Hypertension Type 2 diabetes mellitus with diabetic chronic kidney disease (CMS/HCC) Coronary artery disease Benign prostatic hyperplasia 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 Hypomagnesemia Sequelae of other specified infectious and parasitic diseases Hypertension secondary to other renal disorders Bilateral primary osteoarthritis of knee Diabetic renal disease (CMS/HCC) Gastro-esophageal reflux disease without esophagitis Hyperlipidemia, unspecified Muscle weakness (generalized) Non-ST elevation (NSTEMI) myocardial infarction (CMS/HCC) Post-acute COVID-19 syndrome Adenomatous polyp of sigmoid colon Benign essential hypertension Chronic pain Diabetes mellitus (CMS/HCC) Elevated blood pressure reading Influenza Knee pain, left Laceration of mouth Maxillary fracture (CMS/HCC) Positive colorectal cancer screening using Cologuard test family history includes ALS in his brother; Coronary artery disease in his brother, father, and mother; Stroke in his brother. Social History Tobacco Use Smoking status: Former Types: Cigarettes Smokeless tobacco: Never Substance Use Topics Alcohol use: Not Currently OBJECTIVE Visit Vitals BP (!) 164/100 (BP Location: Left arm, Patient Position: Sitting) Pulse 61 Ht 1.778 m (5' 10 ) Wt 114 kg (252 lb) SpO2 95% BMI 36.16 kg/m??? Smoking Status Former BSA 2.37 m??? Physical Exam Constitutional: General Appearance: well-developed, appears stated age. Level of Distress: no acute distress. Neck: Jugular Veins: normal jugular venous pressure. Lungs: Auscultation: no rales or rhonchi and normal breath sounds. Cardiovascular: Rate And Rhythm: regular Heart Sounds: normal S1 and s2; Systolic Murmur: not heard. Diastolic Murmur: not heard. Extremities: +1 lower extremity edema. Peripheral Pulses: Pulses: full and equal in all extremities except if noted. Abdomen: Distended. Musculoskeletal: Inspection: no joint tenderness or swelling. Neurologic: Gait: normal gait. Psychiatric: Mental Status: alert and normal affect. Skin: Inspection and Palpation: warm and dry. Allergies: No Known Allergies Outpatient Medications: Current Outpatient Medications Medication Instructions aspirin 81 mg, oral, Daily atorvastatin (LIPITOR) 80 mg, oral, Nightly carvedilol (COREG) 25 mg, oral, 2 times daily with meals chlorthalidone (HYGROTON) 25 mg, oral, Once Daily cloNIDine (CATAPRES) 0.3 mg, oral, 2 times daily cyclobenzaprine (Flexeril) 10 mg tablet take 1 tablet by mouth three times a day as needed for spasm dapagliflozin (Farxiga) 10 mg 1 tablet, oral, Daily furosemide (LASIX) 40 mg, oral, Daily isosorbide mononitrate ER (IMDUR) 120 mg, oral, Every evening lisinopril 4 (more content not included)... [facility] 09-16-2024 Telephone encounter Note 4 attempts w/ no contact; unable to lm. [facility] 09-16-2024 Miscellaneous Notes 4 attempts w/ no contact; unable to [...] for more auth. documented in this encounter [facility] 09-10-2024 Telephone encounter Note 3 attempts unable to contact. [facility] 09-05-2024 Telephone encounter Note Tried to contact to note receiving ext of C-9 for the 1 visit to = 12 PT. I called and confirmed the ext date was for 1 remaining PT; I was told yes, and when that is used another request can be sent in for more auth. [facility] 08-26-2024 History of Present illness Narrative Images from the original note [...] 6 bypass (2016) Subjective: Pt reports he is pleased with [...] to be instructed in home exercise program. Residential Goals: To be met in 10 weeks [...] sign below. Date: documented in this encounter [facility] 08-19-2024 History of Present illness Narrative Images from the original note [...] Difficulty sleeping at night. No injection. Work: [employer] (still working but on light duty). Precautions: open heart surgery 6 bypass (2015) Subjective: Pt reports he can tell his [...] to be instructed in home exercise program. Mri Manager Goals: To be met in 10 weeks [...] sign below. Date: documented in this encounter [facility] 08-15-2024 History of Present illness Narrative Images from the original note [...] Difficulty sleeping at night. No injection. Work: [employer] (still working but on light duty). Precautions: [...] to be instructed in home exercise program. Mri Manager Goals: To be met in 10 weeks [...] sign below. Date: documented in this encounter [facility] 08-08-2024 History of Present illness Narrative Images from the original note [...] Difficulty sleeping at night. No injection. Work: [employer] (still working but on light duty). Precautions: [...] to be instructed in home exercise program. Mri Manager Goals: To be met in 10 weeks [...] sign below. Date: documented in this encounter [facility] 08-08-2024 Evaluation note Diagnosis Onset Date Resolution Strain of unspecified muscle, fascia and tendon at shoulder and upper arm l acute August 08 9:47am Superior glenoid labrum lesion of right shoulder, initial encounter acute August 08 9:47am [facility] Work Phone: 1(810) 526-673001-23-2025 Evaluation note* Diagnosis Onset Date Resolution Status [...] ght knee acute September 12, 025 8:15am [facility] Work Phone: 1(550) 993-614901-21-2025 History of Present illness Narrative* Oziel Sage, [...] to be instructed in home exercise program. Residential Goals: To be met in 10 weeks [...] Please sign below. Date: documented [facility] [id number] History of Present illness Narrative* Zoila Fountain, SENIOR TECHNICAL SUPPORT ENGINEER - 08/01/2024 3:30 PM EST Images from [...] No follow-ups on file. documented in this encounterTen[facility] [id number] History of Present illness Narrative* Leidy Jacome, [...] Difficulty sleeping at night. No injection. Work: [employer] (still working but on light duty). Precautions: [...] to be instructed in home exercise program. Mri Manager Goals: To be met in 10 weeks [...] Please sign below. Date: documented in this encounter[facility] LouisSndnfdhxqw91-25-1865 History of Present illness Narrative* Oziel Sage, [...] Difficulty sleeping at night. No injection. Work: [employer] (still working but on light duty). Precautions: open heart surgery 6 bypass (2015) Subjective Pain: 2-3/10 rest; 6/10 Objective: PT [...] to be instructed in home exercise program. Mri Manager Goals: To be met in 10 weeks [...] Please sign below. Date: documented in this encounterTen[facility] [id number] Telephone encounter Note* Telephone Encounter - Abeba Garcia - 07/08/2024 11:45 AM EST Scheduled him out to 07/18/24 w/ PT. [id number] Miscellaneous Notes* Telephone Encounter - Abeba Garcia - 07/08/2024 11:45 AM EST Scheduled him out to 07/18/24 w/ PT. * Telephone Encounter - Abeba Garcia - 07/05/2024 1:12 PM EST Tried to contact to set up PT, going thru [facility], visits dated out to 08/06/24. There was no answer and voicemail was full. documented in this encounter[facility] [id number] Telephone encounter Note* Telephone Encounter - Abeba Garcia - 07/05/2024 1:12 PM EST Tried to contact to set up PT, going thru [facility], w visits dated out to 08/06/24. There was no answer and voicemail was full. [facility]Gplmzhprxl76-16-1232 History of Present illness Narrative* Zoila Fountain NP - 06/20/2024 4:30 PM EST Images from [...] No follow-ups on file. documented in this encounterTen[facility] St. [id number] History of Present illness Narrative* Zoila Fountain [...] No follow-ups on file. documented in this encounterTen[facility]. LouisWamjsilssm42-35-0624 [facility] Chief Complaint: [...] a few months ago. HPI: Lisa Jurado . is a 68 y.o. male Who has [...] not taking his spirono (more content not included)...[facility] Chief Complaint: HTN control, lowest the past couple weeks have been 140. Took his meds at 9:30am this morning. HPI: Lisa Jurado Sr. is a 68 y.o. male With a [...] to loop diureti (more content not included)... [facility]02-13-2024 History of Present illness Narrative* Zoila Fountain, IBIS - 08/29/2023 11:30 AM EST Subjective Patient [...] Laterality Date APPENDECTOMY CORONARY ARTERY BYPASS GRAFT 2015 KNEE ARTHROSCOPY W/ ACL RECONSTRUCTION TENDON REPAIR [...] Get plenty of rest. documented in this encounterTen[facility]. [id number] Evaluation note* Encounter Date Diagnosis Assessment Notes Treatment Notes Treatment Clinical Notes Jul, Contact with and (suspected) exposure to covid-19 (ICD-10 - Z20.822) Jul, Influenza A (ICD-10 - J10.1) Patient left the urgent care prior to receiving the results of his PCR COVID, influenza, RSV testing. He was not seen by the provider. Will attempt to notify patient of his results. [email or web address] Other 12-03-2021 History of Present illness NarrativePatient returns in [...] exercise and weight loss were reviewed with him.-[facility]-[employer] DO Work Phone: 1([phone]) 440-224111-11-2021 History of Present illness Narrative* Patient is [...] he will do the best he can. -[facility]-[employer] DO Work Phone: Evaluation noteNo [employer] Other Evaluation note* Diagnosis Bronchitis- Primary Bronchitis, not specified as acute or chronic Left non-suppurative otitis media Nonsuppurative otitis media, not specified as acute or chronic documented [facility] Diagnosis Onset Date Resolution Status Bilateral primary osteoarthritis of knee acute Knee pain, left acute Knee pain, right acute [facility] Work Phone: Evaluation note* Diagnosis Onset Date Resolution Status Bilateral primary osteoarthritis of knee acute [facility] Work Phone: Evaluation note* Diagnosis Onset Date Resolution Status Bilateral primary osteoarthritis of knee acute Bilateral primary osteoarthritis of knee acute Chronic pain acute Knee pain, left acute Knee pain, right acute [facility] Work Phone: Evaluation note* Diagnosis Primary [...] microalbuminuria, without long-term current use of insulin (CMS/[facility]) Primary hypertension ([facility]) Unspecified essential hypertension Type 2 diabetes mellitus with hyperglycemia, without long-term current use of insulin ([facility]) Pulmonary hypertension, unspecified (I27.20) Laryngitis, acute- Primary Acute laryngitis, without mention of obstruction Acute pain of right knee documented [facility] Diagnosis Primary hypertension (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)- Primary Abnormal glucose tolerance test Impaired glucose tolerance test Benign essential hypertension ([facility]) Essential hypertension, benign Type 2 diabetes mellitus with microalbuminuria, without long-term current use of insulin ([facility]) Primary hypertension ([facility]) Unspecified essential hypertension Type 2 diabetes mellitus with hyperglycemia, without long-term current use of insulin ([facility]) Pulmonary hypertension, unspecified (I27.20) Laryngitis- Primary Acute laryngitis, without mention of obstruction [facility] Diagnosis Primary hypertension (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/HCC)- Primary Abnormal glucose tolerance test Impaired glucose tolerance test Benign essential hypertension ([facility]) Essential hypertension, benign Type 2 diabetes mellitus with microalbuminuria, without long-term current use of insulin ([facility]) Primary hypertension ([facility]) Unspecified essential hypertension Type 2 diabetes mellitus with hyperglycemia, without long-term current use of insulin ([facility]) Pulmonary hypertension, unspecified (I27.20) Strain of right shoulder, initial encounter- Primary documented in this encounter [facility]* Diagnosis Primary hypertension (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)- Primary Abnormal glucose tolerance test Impaired glucose tolerance test Benign essential hypertension ([facility]) Essential hypertension, benign Type 2 diabetes mellitus with microalbuminuria, without long-term current use of insulin (CMS/HCC) Primary hypertension (CMS/HCC) Unspecified essential hypertension Type 2 diabetes mellitus with hyperglycemia, without long-term current use of insulin (CMS/HCC) Pulmonary hypertension, unspecified (I27.20) Strain of right shoulder, initial encounter- Primary documented in this encounter [facility]Evaluation [facility]* Diagnosis Primary hypertension (CMS/HCC)- Primary [...] initial encounter- Primary documented in this encounter [facility]* Diagnosis Primary hypertension (CMS/HCC)- Primary [...] initial encounter- Primary documented in this encounter [facility] HealthcareEvaluation noteNo assessment information availableDayton [facility] Work Phone: Evaluation note* Diagnosis Primary hypertension [...] microalbuminuria, without long-term current use of insulin ([facility]/HCC) Primary hypertension ([facility]/HCC) Unspecified essential hypertension Type 2 diabetes mellitus with hyperglycemia, without long-term current use of insulin ([facility]/HCC) Pulmonary hypertension, unspecified (I27.20) Strain of right shoulder, initial encounter- Primary documented in this encounter [facility]Evaluation [facility]* Diagnosis Primary hypertension (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/HCC)- Primary Abnormal glucose tolerance test Impaired glucose tolerance test Benign essential hypertension ([facility]/HCC) Essential hypertension, benign Type 2 diabetes mellitus with microalbuminuria, without long-term current use of insulin ([facility]/HCC) Primary hypertension ([facility]/HCC) Unspecified essential hypertension Type 2 diabetes mellitus with hyperglycemia, without long-term current use of insulin ([facility]) Pulmonary hypertension, unspecified (I27.20) Laryngitis- Primary Acute laryngitis, without mention of obstruction Type 2 diabetes mellitus with hyperglycemia ([facility]/HCC) Type 2 diabetes mellitus with diabetic chronic kidney disease ([facility]) Chronic kidney disease, stage 3a (HCC) ([facility]) Morbid (severe) obesity due to excess calories ([facility]) Essential (primary) hypertension ([facility]/HCC) Unspecified essential hypertension Body mass index (BMI) 38.0-38.9, adult Pulmonary hypertension, unspecified ([facility]/HCC) documented in this encounter [facility] HealthcareEvaluation note* Diagnosis Primary hypertension (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/HCC)- Primary Abnormal glucose tolerance test Impaired glucose tolerance test Benign essential hypertension ([facility]/HCC) Essential hypertension, benign Type 2 diabetes mellitus with microalbuminuria, without long-term current use of insulin ([facility]/HCC) Primary hypertension ([facility]/HCC) Unspecified essential hypertension Type 2 diabetes mellitus with hyperglycemia, without long-term current use of insulin ([facility]) Pulmonary hypertension, unspecified (I27.20) Strain of right shoulder, initial encounter- Primary documented in this encounter [facility]Evaluation note* Diagnosis Onset Date Resolution Status Admit Date Strain of unspecified muscle , fascia and tendon at shoulder and upper arm l acute August 08 9:47am Superior glenoid labrum lesi on of right shoulder, initial encounter acute August 08 9:47am [facility] Work Phone: Evaluation note* Diagnosis Primary hypertension (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/HCC)- Primary Abnormal glucose tolerance test Impaired glucose tolerance test Benign essential hypertension ([facility]/HCC) Essential hypertension, benign Type 2 diabetes mellitus with microalbuminuria, without long-term current use of insulin ([facility]) Primary hypertension ([facility]/HCC) Unspecified essential hypertension Type 2 diabetes mellitus with hyperglycemia, without long-term current use of insulin (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/HCC)- Primary Abnormal glucose tolerance test Impaired glucose tolerance test Benign essential hypertension ([facility] [facility]/HCC) Essential hypertension, benign Type 2 diabetes mellitus with microalbuminuria, without long-term current use of insulin ([facility]/HCC) Primary hypertension ([facility]/HCC) Unspecified essential hypertension Type 2 diabetes mellitus with hyperglycemia, without long-term current use of insulin ([facility]) Pulmonary hypertension, unspecified (I27.20) Insomnia, unspecified type- Primary Type 2 diabetes mellitus with hyperglycemia, unspecified whether halfway insulin use ([facility]) Flatulence Flatulence, eructation, and gas pain documented in this encounter [facility] HealthcareHistory general Narrative - Reported* Type Description Date Medical History HTN Medical History Arthritis Medical History Diabetes Medical History Hx of [place] Medical History Hyperlipidemia Medical History Coronary artery disease Surgical History Appendectomy Surgical History Arthroscopy, bilateral knees Surgical History Hernia Surgical History Left hand Surgical History heart bypass graft x 6 Surgical History cataract removal Hospitalization History See above [email or web address] Other Hospital Discharge instructionsAmbulatory Orders* Referral to Pain Management Time Frame: 03/06/24, Location: None [facility] Work Phone: Reason for visit Narrative* Rehabilitation - Outpatient (Routine) - Authorized Specialty Diagnoses / Procedures Referred By Chivo savage Referred To Contact Physical Therapy Diagnoses Strain of unspecified muscle, fascia and tendon at shoulder and upper arm level, right arm, initial encounter Procedures GA PHYSICAL THERAPY EVALUATION LOW COMPLEX 20 MINS GA OFFICE/OUTPATIENT [facility] Leidy Fu MD [address] [place] [address] Phone: tel: fax: [facility] [address] [facility] [address] [place] [address] Phone: tel: fax: Referral ID Status Reason Start Date Expiration Date V isits Requested Visits Authorized [id number] Authorized 06/25/2024 08/06/2024 12 12 [facility] HealthcareReason for visit Narrative* Rehabilitation - Outpatient (Routine) - Authorized Specialty Diagnoses / Procedures Referred By Chivo savage Referred To Contact Physical Therapy Diagnoses Strain of unspecified muscle, fascia and tendon at shoulder and upper arm level, right arm, initial encounter Procedures GA PHYSICAL THERAPY EVALUATION LOW COMPLEX 20 MINS GA OFFICE/OUTPATIENT [facility] Leidy Fu MD [address] [place] [address] Phone: tel: fax: [facility] [address] [facility] [address] [place] [address] Phone: tel: fax: Referral ID Status Reason Start Date Expiration Date V isits Requested Visits Authorized [id number] Authorized 06/25/2024 12 12 [facility] HealthcareReason for visit Narrative* Rehabilitation - Outpatient (Routine) - Authorized Specialty Diagnoses / Procedures Referred By Chivo t Referred To Contact Physical Therapy Diagnoses Strain of unspecified muscle, fascia and tendon at shoulder and upper arm level, right arm, initial encounter Procedures GA PHYSICAL THERAPY EVALUATION LOW COMPLEX 20 MINS GA OFFICE/OUTPATIENT [facility] Leidy Bennett MD [address] [place] [address] [address] [place] [address] Phone: tel: fax: [facility] [address] [facility] [address] [place] [address] Phone: tel: fax: Referral ID Status Reason Start Date Expiration Date V isits Requested Visits Authorized [id number] Authorized 06/25/2024 08/30/2024 12 12 [facility] Summary Purpose Family History No Family History [...] of knee Chief Complaint 3 MONTHS CONSULT [facility] [place] Reason for Visit Bilateral primary os teoarthritis of knee Bilateral primary osteoarthritis of knee Chronic pain Knee pain, left Knee pain, right Chief Complaint Admit Date [id number] June 25, [...] 28pm [email or web address] July 26, 2024 2 :30pm [facility] DOI 06/24/24 RT SHOULDER INJURY [place] [facility] August 08, 2024 9:47am Reason for Visit Admit Date Strain of unspecified muscle , fascia and tendon at shoulder and upper arm l August 08, 2024 9:47am Superior glenoid labrum lesi on of right shoulder, initial encounter Paula 23rd, 2025 9:47am Chief Complaint Admit Date [id number] June 25, 2024 11:08am [email or web address] July 04, 2024 2:30pm [email or web address] July 22, 2024 5: 28pm [email or web address] July 26, 2024 2 :30pm [facility] DOI 06/24/24 RT SHOULDER INJURY [place] [facility] August 08, 2024 9:47am OP SP BILAT KNEE PAIN August 14, 2024 1:16pm Chief Complaint Admit Date [id number] June 25, 2024 11:08am [email or web address] July 04, 2024 2:30pm [email or web address] July 22, 2024 5: 28pm [email or web address] July 26, 2024 2 :30pm [facility] DOI 06/24/24 RT SHOULDER INJURY MRI [place] [facility] August 08, 2024 9:47am OP SP BILAT [...] 1:16pm Primary osteoarthritis of left knee [facility] 2024 8:15am Primary osteoarthritis of right knee Feb ruary 2024 8:15am Additional Source Comments (unrecognized sect ion and content) No Status Records FoundNo Status Records FoundNo Status Records FoundNo Status Records FoundNo Status Records FoundNo Status Records Found INFORMATION SOURCE (unrecogn ized section and content) DATE CREATED AUTHOR 01/09/2018 [facility] DATE CREATED AUTHOR AUTHOR'S ORGANIZ ATION 06/20/2021 [employer] DATE CREATED AUTHOR AUTHOR'S ORGANIZ ATION 09/13/2022 [facility] DATE CREATED AUTHOR AUTHOR'S ORGANIZ ATION 08/03/2024 [facility] DATE CREATED AUTHOR AUTHOR'S ORGANIZ ATION 11/27/2024 [facility] d[facility] Specialists EPIC DATE CREATED AUTHOR AUTHOR'S ORGANIZ ATION 01/07/2025 [facility] REASON FOR VISIT (unrecogniz ed section [...] Care Teams (unrecognized sec tion and content) Palm And Back Forger Relationship Specialty Start Date End Date Spencer Mast MD [address] [facility] [address] [place] [address] PCP - [employer] 10/15/20 Spencer Mast MD [address] [facility] [address] [place] [address] PCP - General Family Medicine 11/22/22 Palm And Back Forger Relationship Specialty Start Date End Date Spencer Mast MD [address] [facility] [address] [place] [address] PCP - [employer] 10/15/20 Spencer Mast MD [address] [facility] [address] [place] [address] PCP - General Family Medicine 11/22/22 Team Status: Active Member Role Status Dates Spencer Mast MD Primary Care Provider Active Team Status: Inactive Member Role Status Dates JOE PennyC Attending Provider Active S tart: August 02, 2023 End: August 02, 2023 Team Status: Active Member Role Status Dates Spencer Mast MD [...] 30, 2023 End: October 30, 2023 Davide Cobb MD Attending Provider Active Sta rt: October [...] March 13, 2024 End: March 13, 2024 Palm And Back Forger Relationship Specialty Start Date End Date Spencer Mast MD [address] [facility] [address] [place] [address] PCP - General Family Medicine 11/22/22 Zoila Fountain, SENIOR TECHNICAL SUPPORT ENGINEER [address] [facility] [facility] [address] [place] [address] PCP [facility] 03/17/24 Palm And Back Forger Relationship Specialty Start Date End Date Spencer Mast MD [address] [facility] [address] [place] [address] PCP - General Family Medicine 11/22/22 Zoila Fountain, SENIOR TECHNICAL SUPPORT ENGINEER [address] [facility] [address] [place] [address] PCP - [employer] 03/17/24 Palm And Back Forger Relationship Specialty Start Date End Date Spencer Mast MD [address] [facility] [address] [place] [address] PCP - General Family Medicine 11/22/22 Zoila Fountain, SENIOR TECHNICAL SUPPORT ENGINEER [address] [facility] [address] [place] [address] PCP - [employer] 03/17/24 Palm And Back Forger Relationship Specialty Start Date End Date Spencer Mast MD [address] [facility] [address] [place] [address] PCP - General Family Medicine 11/22/22 Zoila Fountain, SENIOR TECHNICAL SUPPORT ENGINEER [address] [facility] [address] [place] [address] PCP - [employer] 03/17/24 Palm And Back Forger Relationship Specialty Start Date End Date Spencer Mast MD [address] [facility] [address] [place] [address] PCP - General Family Medicine 11/22/22 Zoila Fountain, SENIOR TECHNICAL SUPPORT ENGINEER [address] [facility] [address] [place] [address] PCP - [employer] 03/17/24 Palm And Back Forger Relationship Specialty Start Date End Date Spencer Mast MD [address] [facility] [address] [place] [address] PCP - General Family Medicine 11/22/22 Zoila Fountain, SENIOR TECHNICAL SUPPORT ENGINEER [address] [facility] [address] [place] [address] PCP - [employer] 03/17/24 Palm And Back Forger Relationship Specialty Start Date End Date Spencer Mast MD [address] [facility] [address] [place] [address] PCP - General Family Medicine 11/22/22 Zoila Fountain, SENIOR TECHNICAL SUPPORT ENGINEER [address] [facility] [address] [place] [address] PCP - [employer] 03/17/24 Palm And Back Forger Relationship Specialty Start Date End Date Spencer Mast MD [address] [facility] [address] [place] [address] PCP - General Family Medicine 11/22/22 Zoila Fountain, SENIOR TECHNICAL SUPPORT ENGINEER [address] [facility] [address] [place] [address] PCP - [employer] 03/17/24 Palm And Back Forger Relationship Specialty Start Date End Date Spencer Mast MD [address] [facility] [address] [place] [address] PCP - General Family Medicine 11/22/22 Zoila Fountain, SENIOR TECHNICAL SUPPORT ENGINEER [address] [facility] [address] [place] [address] PCP - [employer] 03/17/24 Palm And Back Forger Relationship Specialty Start Date End Date Spencer Mast MD [address] [facility] [address] [place] [address] PCP - General Family Medicine 11/22/22 Zoila Fountain, SENIOR TECHNICAL SUPPORT ENGINEER [address] [facility] [address] [place] [address] PCP - [employer] 03/17/24 Palm And Back Forger Relationship Specialty Start Date End Date Spencer Mast MD [address] [facility] [address] [place] [address] PCP - General Family Medicine 11/22/22 Zoila Fountain, SENIOR TECHNICAL SUPPORT ENGINEER [address] [facility] [address] [place] [address] PCP - [employer] 03/17/24 Team Status: Inactive Member Role [...] July 22, 2024 End: July 22, 2024 Palm And Back Forger Relationship Specialty Start Date End Date Spencer Mast MD [address] [facility] [address] [place] [address] PCP - General Family Medicine 11/22/22 Zoila Fountain SENIOR TECHNICAL SUPPORT ENGINEER 112 [facility] [address] [place] [address] PCP - [employer] 03/17/24 Team Status: Inactive Member Role Status Dates Spencer Mast MD Primary Care Provider Active S tart: July 26, 2024 End: July 26, 2024 Leidy Bennett APRN Attending Provider Active Start: July 26, 2024 End: July 26, 2024 Palm And Back Forger Relationship Specialty Start Date End Date Spencer Mast MD [address] [facility] [address] [place] [address] PCP - General Family Medicine 11/22/22 Zoila Fountain, SENIOR TECHNICAL SUPPORT ENGINEER [address] [facility] [address] [place] [address] PCP - [employer] 03/17/24 Palm And Back Forger Relationship Specialty Start Date End Date Spencer Mast MD [address] [facility] [address] [place] [address] PCP - General Family Medicine 11/22/22 Zoila Fountain, SENIOR TECHNICAL SUPPORT ENGINEER [address] [facility] [address] [place] [address] PCP - [employer] 03/17/24 Palm And Back Forger Relationship Specialty Start Date End Date Spencer Mast MD [address] [facility] [address] [place] [address] PCP - General Family Medicine 11/22/22 Zoila Fountain, SENIOR TECHNICAL SUPPORT ENGINEER [address] [facility] [address] [place] [address] PCP - [employer] 03/17/24 Palm And Back Forger Relationship Specialty Start Date End Date Spencer Mast MD [address] [facility] [address] [place] [address] PCP - General Family Medicine 11/22/22 Zoila Fountain, SENIOR TECHNICAL SUPPORT ENGINEER [address] [facility] [address] [place] [address] PCP - [employer] 03/17/24 Team Status: Inactive Member Role Status Dates Spencer Mast MD Primary Care Provider Active S tart: August 08, 2024 End: August 08, 2024 Mukesh Salinas MD Attending Provider Active Star t: August 08, 2024 End: August 08, 2024 Palm And Back Forger Relationship Specialty Start Date End Date Spencer Mast MD [address] [facility] [address] [place] [address] PCP - General Family Medicine 11/22/22 Zoila Fountain, SENIOR TECHNICAL SUPPORT ENGINEER [address] [facility] [address] [place] [address] PCP - [employer] 03/17/24 Palm And Back Forger Relationship Specialty Start Date End Date Spencer Mast MD [address] [facility] [address] [place] [address] PCP - General Family Medicine 11/22/22 Zoila Fountain, SENIOR TECHNICAL SUPPORT ENGINEER [address] [facility] [address] [place] [address] PCP - [employer] 03/17/24 Team Status: Inactive Member Role [...] September 12, 2024 End: September 12, 2024 Palm And Back Forger Relationship Specialty Start Date End Date Spencer Mast MD [address] [facility] [address] [place] [address] PCP - General Family Medicine 11/22/22 Zoila Fountain, SENIOR TECHNICAL SUPPORT ENGINEER [address] [facility] [address] [place] [address] PCP - [employer] 03/17/24 Palm And Back Forger Relationship Specialty Start Date End Date Spencer Mast MD [address] [facility] [address] [place] [address] PCP - General Family Medicine 11/22/22 Palm And Back Forger Relationship Specialty Start Date End Date Spencer Mast MD [address] [facility] [address] [place] [address] PCP - General Family Medicine 11/22/22 Palm And Back Forger Relationship Specialty Start Date End Date Spencer Mast MD [address] [facility] [address] [place] [address] PCP - General [facility] 11/22/22 Palm And Back Forger Relationship Specialty Start Date End Date Spencer Mast MD [address] [facility] [address] [place] [address] PCP - General [facility] Medicine 11/22/22 Palm And Back Forger Relationship Specialty Start Date End Date Spencer Mast MD [address] [facility] [address] [place] [address] PCP - General [facility] Medicine 11/22/22 Goals (unrecognized section and content) Goals may [...] BE BASED ON THE PRIMARY CLINICAL RECORDS. [employer] [facility]. provides no warranty or guarantee of the accuracy or completeness of information in this document.
[2025-02-07 07:11] LABS: Hematocrit 35.2 % (42.0-54.0); Hemoglobin 11.5 g/dL (14.0-18.0); Mean Corpuscular HGB Conc 32.7 g/dL (29.9-35.2); Mean Corpuscular Hemoglobin 29.1 pg (25.9-34.0); Mean Corpuscular Volume 89.1 fL (80.0-94.0); Platelet Count 179 10^3/uL (150-450); Red Blood Count 3.95 10^6/uL (4.70-6.10); White Blood Count 6.3 10^3/uL (4.0-11.0)
[2025-02-07 09:05] LABS: Glucose Urine UA >=1000 mg/dL (NEGATIVE)
[2025-02-07 09:25] LABS: Protein Creatinine Ratio Urine 0.33; Total Protein Urine Random 47.1 mg/dL (<=11.9)
[2025-02-07 11:17] LABS: Albumin Level 3.2 g/dL (3.4-5.0); Anion Gap 13.4; Blood Urea Nitrogen 27.0 mg/dL (7.0-18.0); Calcium 8.4 mg/dL (8.5-10.1); Carbon Dioxide 27.1 mmol/L (21.0-32.0); Chloride 107 mmol/L (98-107); Estimated GFR (African America 39 (>=60 mL/min/1.73m^2); Estimated GFR (Non-African Ame 32 (>=60 mL/min/1.73m^2); Glucose 134 mg/dL (74-106); Magnesium 2.0 mg/dL (1.8-2.4); Potassium 4.5 mmol/L (3.5-5.1); Sodium 143 mmol/L (136-145); TSH W/ REFLEX FT4 3.474 uIU/mL (0.358-3.740); Uric Acid 7.0 mg/dL (3.5-7.2)
[2025-02-11 11:08] LABS: Renin Activity, Plasma <0.167 ng/mL/hr (0.167-5.380)
[2025-02-13 16:09] LABS: Aldosterone LCMS, Serum 14.9 ng/dL (0.0-30.0)
== END 2025-02-07 06:36 | disposition home or self-care (01) ==
LOC: LAB 06:35
PROVIDERS: PCP Family Medicine; Visit Provider Internal Medicine Nephrology
DX: I12.9 Hypertensive chronic kidney disease with stage 1 through stage 4 chronic kidney disease, or unspecified chronic kidney disease (principal); N18.32 Chronic kidney disease, stage 3b; E11.21 Type 2 diabetes mellitus with diabetic nephropathy
CPT/HCPCS: 36415; 80069; 81003; 82088; 82306; 82533; 82570; 83735; 83970; 84156; 84244; 84443; 84550; 85027

== ENCOUNTER 2025-02-08 10:31 | Outpatient (REF) | payer MEDICARE, SELFPAY ==
--- OUTSIDE RECORDS SUMMARY | 2025-02-11 10:33 | XMS_ITS | Encounter Summary ---
Author Organization [facility] Address [address] [place] [facility] [place] [address] Care Team Providers Care Classroom Paraprofessional Name Role Phone Surya Hinton MD Primary Care Provider [phone] Encounter Details Date Type Department Care Team ([facility] Contact Info) Description 11/07/2024 Abstract [facility] [place] [address] [facility] [address] [place] [address] Surya Hinton MD [address] [facility] [address] [place] [address] Social History Tobacco Use Types Packs/Day Years [...] Upcoming Encounters Date Type Department Care Team ([facility] Contact Info) Description 02/26/2025 11:30 AM EDT [facility] [place] [facility] [address] [facility] [address] [place] [address] Zoila Fountain NP [address] [facility] [address] [place] [address] documented as of this encounter Visit Diagnoses Not on filedocumented in this encounter Care Teams Classroom Paraprofessional Relationship Specialty Start Date End Date Surya Hinton MD [address] [facility] [address] [place] [address] PCP - General Family Medicine 11/22/22 documented as of this encounter
--- OUTSIDE RECORDS SUMMARY | 2025-02-11 10:33 | XMS_ITS | Encounter Summary ---
Author Organization [facility] Address [address] [facility] [place] [address] Care Team Providers Care Occupational Therapist Home Based Name Role Phone Surya Hinton MD Unavailable Surya Hinton MD Primary Care Provider [phone] Zolia Fountain NP Unavailable [phone] Encounter Details Date Type Department Care Team (Late Contact Info) Description 11/28/2023 Abstract [facility] [place] Pederson [address] [facility] [address] [place] [phone] Surya Hinton MD [address] [facility] [address] [place] [address] Social History Tobacco Use Types Packs/Day Years [...] 11:30 AM EDT Office Visit [facility] [place] Pederson [address] [facility] [address] [place] [address] Zoila Fountain POULTRY FARMER [address] [facility] [address] [place] [address] documented as of this encounter Visit Diagnoses Not on filedocumented in this encounter Care Teams Occupational Therapist Home Based Relationship Specialty Start Date End Date Surya Hinton MD [address] [facility] [address] [place] [address] PCP - [employer] 10/15/20 Surya Hinton MD [address] [facility] [address] [place], [place] [address] PCP - General Family Medicine 11/22/22 Zoila Fountain, IBIS [address] [facility] [address] [place], [place] [address] PCP - [employer] 03/17/24 documented as of this encounter
--- OUTSIDE RECORDS SUMMARY | 2025-02-11 10:33 | XMS_ITS | Encounter Summary ---
Author Organization [facility] Address [address] [facility] [place] [address] Care Team Providers Care Supervisor Roving Department Name Role Phone Surya Hinton MD Primary Care Provider [phone] Zoila Fountain ROTARY DUMP OPERATOR Unavailable [phone] Encounter Details Date Type Department Care Team ([facility] Contact Info) Description 09/13/2024 Abstract [facility] [place] Guerra [address] [facility] 110 [place] [phone] Surya Hinton MD [address] [facility] 110 [place] [address] Social History Tobacco Use Types Packs/Day Years [...] Upcoming Encounters Date Type Department Care Team ([facility] Contact Info) Description 02/26/2025 11:30 AM EDT Office Visit [facility] [place] Guerra [address] [facility] [address] [place] [phone] Zoila Fountain NP [address] [facility] [address] [place] [address] documented as of this encounter Visit Diagnoses Not on filedocumented in this encounter Care Teams Supervisor Roving Department Relationship Specialty Start Date End Date Surya Hinton MD 112 [facility] 110 [place] [address] PCP - General Family Medicine 11/22/22 Zoila Fountain ROTARY DUMP OPERATOR 112 [facility] 110 [place] [address] PCP - [place] [employer] 03/17/24 documented as of this encounter
--- OUTSIDE RECORDS SUMMARY | 2025-02-11 10:33 | XMS_ITS | Encounter Summary ---
Author Organization [facility] Address [address] [facility] [place] [address] Care Team Providers Care Aluminum Hydroxide Process Operator Name Role Phone Surya Hinton MD Primary Care Provider [phone] Zoila Fountain MECHANICAL MAINTENANCE FOREMAN Unavailable [phone] Encounter Details Date Type Department Care Team ([facility] Contact Info) Description 08/14/2024 Abstract [facility] [place] Guerra [address] [facility] 110 [place] [phone] Surya Hinton MD [address] [facility] 110 [place] [address] Social History Tobacco Use Types Packs/Day Years [...] Upcoming Encounters Date Type Department Care Team ([facility] Contact Info) Description 02/26/2025 11:30 AM EDT Office Visit [facility] [place] Guerra [address] [facility] [address] [place] [phone] Zoila Fountain NP [address] [facility] 110 [place] [address] documented as of this encounter Visit Diagnoses Not on filedocumented in this encounter Care Teams Aluminum Hydroxide Process Operator Relationship Specialty Start Date End Date Surya Hinton MD [address] [facility] 110 [place] [address] PCP - General Family Medicine 11/22/22 Zoila Fountain MECHANICAL MAINTENANCE FOREMAN 112 [facility] 110 [place] [address] PCP - [place] [employer] 03/17/24 documented as of this encounter
--- OUTSIDE RECORDS SUMMARY | 2025-02-11 10:33 | XMS_ITS | Encounter Summary ---
Author Organization [facility] Address [address] [facility] [place] [address] Care Team Providers Care Collision Center Manager Name Role Phone Surya Hinton MD Unavailable Surya Hinton MD Primary Care Provider [phone] Zoila Fountain NP Unavailable [phone] Encounter Details Date Type Department Care Team (Late Contact Info) Description 11/21/2023 Abstract [facility] [place] Pederson [address] [facility] 110 [place] [phone] Surya Hinton MD [address] [facility] 110 [place] [address] Social History Tobacco Use Types Packs/Day Years [...] Pederson [address] [facility] [address] [place] [address] Zoila Fountain STATE ASSESSED PROPERTIES DIRECTOR [address] [facility] [address] [place] [address] documented as of this encounter Visit Diagnoses Not on filedocumented in this encounter Care Teams Collision Center Manager Relationship Specialty Start Date End Date Surya Hinton MD [address] [facility] 110 [place] [address] PCP - [employer] 10/15/20 Surya Hinton MD [address] [facility] [address] [place], [place] [address] PCP - General Family Medicine 11/22/22 Zoila Fountain, IBIS [address] [facility] [address] [place], [place] [id number] PCP - [employer] 03/17/24 documented as of this encounter
--- OUTSIDE RECORDS SUMMARY | 2025-02-11 10:33 | XMS_ITS | Encounter Summary ---
Author Organization [facility] Address [address] [facility] [place] [address] Care Team Providers Care Automotive Parts Counter Assistant Name Role Phone Surya Hinton MD Unavailable Surya Hinton MD Primary Care Provider [phone] Zoila Foutnain NP Unavailable [phone] Encounter Details Date Type Department Care Team (Late Contact Info) Description 11/15/2023 Abstract [facility] [place] Pederson [address] [facility] 110 [place] [phone] Surya Hinton MD [address] [facility] 110 [place] [address] Social History Tobacco Use Types Packs/Day Years [...] Pederson [address] [place] [address] Zoila Fountain SLIP COVER MAKER [address] [place] [address] documented as of this encounter Visit Diagnoses Not on filedocumented in this encounter Care Teams Automotive Parts Counter Assistant Relationship Specialty Start Date End Date Surya Hinton MD [address] [facility] 110 [place] [address] PCP - Saul Commercial 10/15/20 Surya Hinton MD [address] [facility] 110 [place], [place] [phone] PCP - General Family Medicine 11/22/22 Zoila Fountain, IBIS [address] [facility] 110 [place], [place] [phone] PCP - Saul Commercial 03/17/24 documented as of this encounter
--- OUTSIDE RECORDS SUMMARY | 2025-02-11 10:33 | XMS_ITS | Encounter Summary ---
Author Organization [facility] Address [address] [facility] [place] [address] Care Team Providers Care Ext Js Developer Name Role Phone Surya Hinton MD Unavailable Surya Hinton MD Primary Care Provider [phone] Zoila Fountain NP Unavailable [phone] Encounter Details Date Type Department Care Team (Late Contact Info) Description 01/30/2024 Abstract [facility] [place] Pederson [address] [facility] 110 [place] [phone] Surya Hinton MD [address] [facility] 110 [place] [address] Social History Tobacco Use Types Packs/Day Years [...] Pederson [address] [place] [address] Zoila Fountain ANIMAL DAYCARE PROVIDER [address] [place] [address] documented as of this encounter Visit Diagnoses Not on filedocumented in this encounter Care Teams Ext Js Developer Relationship Specialty Start Date End Date Surya Hinton MD [address] [facility] 110 [place] [address] PCP - Saul Commercial 10/15/20 Surya Hinton MD [address] [facility] 110 [place], [place] [phone] PCP - General Family Medicine 11/22/22 Zoila Fountain, IBIS [address] [facility] 110 [place], [place] [phone] PCP - Saul Commercial 03/17/24 documented as of this encounter
--- OUTSIDE RECORDS SUMMARY | 2025-02-11 10:33 | XMS_ITS | Clinical Summary ---
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, unspecified whether [place] or transplanted heart Take 1 tablet (80 [...] unspecified vessel or lesion type, unspecified whether [place] or transplanted heart Take 1 tablet (10 [...] Encounters Date Type Department Care Team Description 02/07/2025 Clinisync Result Encounter NOMS External Department Unsolicited Provider, Generic External Data 12/25/2024 Abstract [facility] [place] [facility] [address] [facility] 110 [place] [address] Surya Hinton MD 12/18/2024 Clinisync Result Encounter NOMS External Department Unsolicited Provider, Generic External Data 12/13/2024 Clinisync Result Encounter NOMS External Department Unsolicited Provider, Generic External Data 12/02/2024 Abstract [facility] [place] Guerra [address] [facility] 110 [place] [address] Surya Hinton MD 11/26/2024 9:00 AM EDT Office Visit [facility] [place] Guerra [address] [facility] 110 [place] [address] Zoila Fountain NP Insomnia, unspecified type (Primary Dx); Type 2 diabetes mellitus with hyperglycemia, unspecified whether fpc insulin use (HCC); Flatulence 11/26/2024 Bamboo flowsheet [facility] [place] [facility] [facility] [address] [facility] 110 [place] [phone] Zoila Fountain NP 11/26/2024 Travel 11/22/2024 Clinisync Result Encounter NOMS External Department Unsolicited Provider, Generic External Data from Last 3 Months Family History Medical [...] EDT Office Visit [facility] [place] Pederson [address] [facility] 110 [place] [address] Zoila Fountain NP 112 [facility] 110 [place] [address] Health Maintenance Due Date Last Done Comments CT Colonography 1955 FIT 1955 FOBT 1955 Sigmoidoscopy 1955 Pneumococcal Vaccine: 65+ Ye ars (1 of 2 - PCV) 1972 Diabetes: Retinopathy Screening 07/18/2024 , 09/17/2019 Diabetes: Urine Protein Screening 11/08/2024 024, 05/29/2018 Diabetes: Hemoglobin A1C 02/26/2025 025, 02/13/2024, 11/09/2023, Additional history exists Influenza Vaccine (#1) 2025 FIT-DNA 08/20/2026 08/20/2023, 07/0 02/2019, 01/21/2019 Colonoscopy 11/02/2033 11/03/2023, 10/30/2023 Colorectal Cancer Screening 11/02/2033 Procedures Procedure Name Priority Date/Time Associated Diagnosis Comments TBH URINE T PROTEIN CREAT RATIO Routine 02/07/2025 7:58 AM EDT ALL URINALYSIS Routine 02/07/2025 7:58 AM EDT HMHP PTH, INTRAOPERATIVE Routine 02/07/2025 6:55 AM EDT HMHP CORTISOL Routine 02/07/2025 6:55 AM EDT TBH VITAMIN D 25 [place] Routine 02/07/2025 6 :55 AM EDT TSH W/REFLEX T4 Routine 02/07/2025 6:55 AM EDT ALL MAGNESIUM Routine 02/07/2025 6:55 AM EDT ALL URIC ACID Routine 02/07/2025 6:55 AM EDT ALL RENAL FUNCTION PANEL Routine 02/07/2025 6:55 AM EDT HMHP CBC WITH PLATELET NO DIFFERENTIAL Routine 02/07/2025 6:55 AM EDT ITP 12/18/2024 2:42 PM EDT ITP 12/13/2024 1:27 PM EDT POCT GLYCATED HEMOGLOBIN, TOTAL Routine 11/26/2024 9:38 AM EDT Type 2 diabetes mellitus with hyperglycemia, unspecified whether ferry terminal agent insulin use (HCC) ALL PRO BNP Routine 11/22/2024 12:56 PM EDT ALL BASIC METABOLIC PANEL Routine 11/22/2024 12:56 PM EDT MICROALBUMIN / CREATININE URINE RATIO Routine [...] Recently Relevant to Health Maintenance Results * (ABNORMAL) TBH URINE T PROTEIN CREAT RATIO (02/07/2025 7:58 AM EDT) TOTAL PROTEIN URINE RANDOM 47.1(H) <=11.9 mg/dL TBH CREATININE URINE RANDOM 141.02 20.00 - 300.00 mg/dL TBH PROTEIN CREATININE RATIO URINE 0.33 TBH 02/07/2025 7:58 AM EDT 02/07/2025 8:00 AM EDT Narrative CLINISYNC - 02/07/2025 9:30 AM EDT Generic External Data Provider [facility] F inal [facility] * (ABNORMAL) ALL URINALYSIS (02/07/2025 7:58 AM EDT) COLOR URINE LT. YELLOW YELLOW TBH CLARITY URINE CLEAR CLEAR TBH SPECIFIC GRAVITY URINE 1.015 1.005 - 1.025 TBH PH URINE 6.0 5.0 - 9.0 TBH PROTEIN URINE 30(A) NEG/TRACE mg/dL TBH GLUCOSE URINE UA >=1000(A) NEGATIVE mg/dL TBH BILIRUBIN URINE NEGATIVE NEGATIVE TBH KETONES URINE NEGATIVE NEGATIVE mg/dL TBH BLOOD URINE MODERATE(A) NEGATIVE TBH NITRITE URINE NEGATIVE NEGATIVE TBH UROBILINOGEN URINE 1.0 0.2 - 1.0 EU/dL TBH LEUKOCYTE ESTERASE URINE NEGATIVE NEGATIVE TBH 02/07/2025 7:58 AM EDT 02/07/2025 8:00 AM EDT Narrative CLINISYWY - 02/07/2025 9:22 AM EDT Generic External Data Provider CLINISYNC F inal Result Performing Organization Address [facility] de Phone Number [facility] * TSH W/REFLEX T4 (02/07/2025 6:55 AM EDT) TSH 3.474 0.358 - 3.740 uIU/mL TBH 02/07/2025 6:55 AM EDT 02/07/2025 6:57 AM EDT Narrative CLINISYWY - 02/07/2025 11:29 AM EDT Generic External Data Provider LAB BLOOD ORDERAB LES Final Result Performing Organization Address [facility] de Phone Number CLINISYWY TB * TBH VITAMIN D 25 [place] (02/07/2025 6:55 AM EDT) VITAMIN D 26.1 ng/mL TBH Comment: <20 ng/mL Vit D deficient 20-<30 ng/mL Vit D insufficient 30-100 ng/mL Vit D sufficient >100 ng/mL Potential Toxicity 02/07/2025 6:55 AM EDT 02/07/2025 6:57 AM EDT [facility] CLINISYWY - 02/07/2025 12:31 PM EDT Generic External Data Provider CLINISYNC F inal Result Performing Organization Address [facility] de Phone Number CLINISYWY TB * (ABNORMAL) HM[facility] PTH, INTRAOPERATIVE (02/07/2025 6:55 AM EDT) PTH, INTACT 101(A) 15 - 65 pg/mL TBH Comment: Performed at: [facility] [address] [id number] Dough Panner: Dionicio Clements PhD, Phone: [phone] 02/07/2025 6:55 AM EDT 02/07/2025 6:57 AM EDT Narrative CLINISYNC - 02/09/2025 11:07 AM EDT Generic External Data Provider CLINISYNC F inal Result Performing Organization Address [facility] de Phone Number [facility] * HMHP CORTISOL (02/07/2025 6:55 AM EDT) [facility] CORTISOL 18.5 6.2 - 19.4 ug/dL TB Comment: Please Note: The reference interval and flagging for this test is for an AM collection. If this is a PM collection please use: Cortisol PM: 2.3-11.9 Performed at: [facility] [address], [place] [id number] Dough Panner: Dionicio Clements PhD, Phone: [phone] 02/07/2025 6:55 AM EDT 02/07/2025 6:57 AM EDT Narrative CLINISYNC - 02/08/2025 8:08 AM EDT Generic External Data Provider CLINISYNC F inal Result Performing Organization Address [facility] de Phone Number CLINISYNC TB * (ABNORMAL) [facility] CBC WITH PLATELET NO DIFFERENTIAL (02/07/2025 6:55 AM EDT) [facility] WBC 6.3 4.0 - 11.0 10 3/uL TBH TB RBC 3.95(L) 4.70 - 6.10 10 6/uL TBH TBH HGB 11.5(L) 14.0 - 18.0 g/dL TBH TBH HCT 35.2(L) 42.0 - 54.0 % TBH TBH MCV 89.1 80.0 - 94.0 fL TBH TB MCH 29.1 25.9 - 34.0 pg TBH TBH MCHC 32.7 29.9 - 35.2 g/dL TB TBH RDW 15.8(H) 11.0 - 15.0 % TBH TBH PLT 179 150 - 450 10 3/uL TBH TBH MPV 11.4 9.5 - 13.5 fL TBH 02/07/2025 6:55 AM EDT 02/07/2025 6:57 AM EDT Narrative CLINISYNC - 02/07/2025 7:14 AM EDT Generic External Data Provider CLINISYNC F inal Result Performing Organization Address City/[facility]/ZIP Co de Phone Number [facility]IS[facility] * ALL URIC ACID (02/07/2025 6:55 AM EDT) URIC ACID 7.0 3.5 - 7.2 mg/dL TB 02/07/2025 6:55 AM EDT 02/07/2025 6:57 AM EDT Narrative CLINISYNC - 02/07/2025 11:29 AM EDT Generic External Data Provider CLINISYNC F inal Result Performing Organization Address [facility] Co de Phone Number [facility] * (ABNORMAL) ALL RENAL FUNCTION PANEL (02/07/2025 6:55 AM EDT) SODIUM 143 136 - 145 mmol/L TBH POTASSIUM 4.5 3.5 - 5.1 mmol/L TBH CHLORIDE 107 98 - 107 mmol/L TBH CARBON DIOXIDE 27.1 21.0 - 32.0 mmol/L TBH ANION GAP 13.4 TBH GLUCOSE 134(H) 74 - 106 mg/dL TBH BLOOD UREA NITROGEN 27.0(H) 7.0 - 18.0 mg/dL TBH CREATININE 2.05(H) 0.70 - 1.30 mg/dL TBH TBH EGFR-AF ZAMBIAN 39(L) >=60 mL/min/1.7 3m 2 TBH TBH EGFR-NON AF ZAMBIAN 32(L) >=60 mL/min/1.7 3m 2 TBH BUN CREATININE RATIO 13.2 TBH CALCIUM 8.4(L) 8.5 - 10.1 mg/dL TBH PHOSPHORUS 4.0 2.6 - 4.7 mg/dL TBH ALBUMIN LEVEL 3.2(L) 3.4 - 5.0 g/dL TBH 02/07/2025 6:55 AM EDT 02/07/2025 6:57 AM EDT Narrative CLINISYNC - 02/07/2025 11:29 AM EDT Generic External Data Provider CLINISYNC F inal Result Performing Organization Address City/[facility]/ZIP Co de Phone Number [facility] * ALL MAGNESIUM (02/07/2025 6:55 AM EDT) [facility] MAGNESIUM 2.0 1.8 - 2.4 mg/dL TBH 02/07/2025 6:55 AM EDT 02/07/2025 6:57 AM EDT Narrative CLINISYNC - 02/07/2025 11:29 AM EDT Generic External Data Provider CLINISYNC F inal Result Performing Organization Address City/[facility] Co de Phone Number CLINISYNC TB * ITP (12/18/2024 2:42 PM EDT) Only the most recent of2 resultswithin the time period is included. Anatomical Region Laterality Modality Other 12/18/2024 2:42 PM EDT Narrative 12/18/2024 4:43 [place] [address] Cardiac Rehab Report Signed Patient: TAWANDA JURADO MR#: [id number] : 1955 Acct:[id number] Age/Sex: 69 / M ADM Date: 12/18/24 Loc: CR Attending Dr: Judi Clark M.D. Ordering Physician: Judi Clark M.D. Date of Service: 12/18/24 Procedure(s): ITP Accession Number(s): [id number] cc: [facility] Test Date: 2024-12-18 Pat Name: TAWANDA JURADO Department: Room: - Gender: Male Economic Specialist: : 1955 Requested By: JUDI CLARK Order Number: [id number] Elizabeth MEDEL: Raphael Justin Interpretive Statements Okay to proceed with outlined treatment plan. Electronically Signed On 12-18-2024 16:43:09 EDT by Raphael Justin Dictated By: Raphael Justin D.O. Signed By: 12/18/24164212/18/241642 DD/ 144 TD/TT: Animal Attendant: Procedure Note Radiology, Radiologist, MD - 12/19/2024 [place] [address] Cardiac Rehab Report Signed Patient: TAWANDA JURADO LMR#: [id number] : 1955cct:[id number] Age/Sex: 69 / MADM Date: 12/18/24 Loc: CR Attending Dr: Judi Clark M.D. Ordering Physician: Judi Clark M.D. Date of Service: 12/18/24 Procedure(s): ITP Accession Number(s): [id number] cc: [facility] Test Date: 2024-12-18 Pat Name: TAWANDA JURADO Department: Room: - Gender: Male Economic Specialist: : 1955 Requested By: JUDI CLARK Order Number: [id number] Elizabeth MD: Raphael Justin Interpretive Statements Okay to proceed with outlined treatment plan. Electronically Signed On 12-18-2024 16:43:09 EDT by Raphael Justin Dictated By: Raphael Justin D.O. Signed By:12/18/24164212/18/241642 DD/ 144 TD/TT: Animal Attendant: us Generic External Data Provider CLINISYNC IMAGING Final Result * (ABNORMAL) POCT Glycated hemoglobin, total (11/26/2024 9:38 AM EDT) Hemoglobin A1C 8.2 Blood 11/26/2024 9:38 AM EDT Zoila Fountain NP POINT OF CARE TEST ENTER/GUTIERREZ T ORDERABLES Final Result * (ABNORMAL) ALL PRO BNP (11/22/2024 12:56 PM EDT) NT PRO B TYPE NATRIURETIC PEPT 2,595.0(HH ) <=900.0 pg/mL TB Comment:RESULTS CALLED TO OLGUIN MA 11/22/2024 12:5 6 PM EDT 11/22/2024 1:04 PM EDT Narrative CLINISYNC - 11/22/2024 1:59 PM EDT [facility] External Data Provider CLINISYNC F inal Result [facility] * (ABNORMAL) ALL BASIC METABOLIC PANEL (11/22/2024 12:56 PM EDT) SODIUM 140 136 - 145 mmol/L TBH POTASSIUM 4.1 3.5 - 5.1 mmol/L TBH CHLORIDE 105 98 - 107 mmol/L TBH CARBON DIOXIDE 27.8 21.0 - 32.0 mmol/L TBH ANION GAP 11.3 TBH GLUCOSE 181(H) 74 - 106 mg/dL TBH BLOOD UREA NITROGEN 26.0(H) 7.0 - 18.0 mg/dL TBH CREATININE 1.84(H) 0.70 - 1.30 mg/dL TBH TBH EGFR-AF ZAMBIAN 44(L) >=60 mL/min/1.7 3m 2 TBH TBH EGFR-NON AF ZAMBIAN 36(L) >=60 mL/min/1.7 3m 2 TBH BUN CREATININE RATIO 14.1 TBH CALCIUM 8.5 8.5 - 10.1 mg/dL TBH 11/22/2024 12:5 6 PM EDT 11/22/2024 1:04 PM EDT Narrative CLINISYNC - 11/22/2024 1:59 PM EDT Generic External Data Provider CLINISYNC F inal Result Performing Organization Address City/[facility]/ZIP Co de Phone Number CLINISYNC TBH * Microalbumin / creatinine urine ratio (11/09/2023 [...] Performing Organization Information Site ID: QPT Name: [facility] Address: [address] [place] [address], [address] [place] [phone] Director: Isauro Norman MD Surya Hinton MD LAB URINE ORDERABLES Final Resul t Performing Organization Address City/[facility]/ZIP Co de Phone Number [facility] * Colonoscopy (11/03/2023 9:39 AM EDT) Anatomical Region Laterality Modality Endoscopy Davide Frias MD ENDOSCOPY PROCEDURE ORDERABL ES Final Result * (ABNORMAL) Cologuard?? colon cancer screening (08/20/2023 7:00 AM EST) NONINV COLON CA DNA+OCC BLD SCRN STL-IMP Positive( A) Negative 09/02/2023 2:11 AM EST [facility] (CLIA #:[id number]) Comment: POSITIVE TEST RESULT. A positive Cologuard [...] screened with both Cologuard and colonoscopy. (Rocio Arevalo et al, N Engl J Med 2014;370(14):4152-3321.) Cologuard may produce a false negative or false positive result (no colorectal cancer or precancerous polyp present at colonoscopy follow up). A negative Cologuard test result does not guarantee the absence of CRC or advanced adenoma (pre-cancer). The current Cologuard screening interval is every 3 years. ([place] [employer] Society and U.S. Multi-Society Task Force). Cologuard performance data in a 10,000 patient pivotal study using colonoscopy as the reference method can be accessed at the following location: www.[email or web address] Search.Searchmetrics/results. Additional description of the Cologuard test process, warnings and precautions can be found at www.cologuard.com. Stool specimen (specimen) Rectal contents / Unknown 08/20/2023 7:00 AM EST 08/23/2023 9:31 AM EST Surya Hinton MD LAB MOLECULAR DIAGNOSTICS ORDERA BLES Final Result .[employer] (CLIA #:[id number]) [address] [address], [employer] (CLIA #:[id number]) [address] [address] * Color Fundus Photography - OU - Both Eyes (09/17/2019 12:00 PM EST) Anatomical Region Laterality Modality Head Fundus Photograp hy 09/17/2019 12:0 0 PM EST Narrative 09/17/2019 12:00 PM EST PERFORMED AT [facility] LOCATION:[id number] [facility] Procedure Note CONVERSION, GENERIC - 11/30/2022 PERFORMED AT [facility] LOCATION:[id number] [facility] Marielena PIMENTEL OPHTH PHOTOGRAPHY Final Result from Last 3 Months or Most Recently Relevant to Health Maintenance Insurance [employer] MEDICARE [facility] [place] [id number] MED RISK EPO Care Teams Buckle Assembler Relationship Specialty Start Date End Date Surya Hinton MD [address] [address] PCP - General Family Medicine 11/22/22
--- OUTSIDE RECORDS SUMMARY | 2025-02-11 10:33 | XMS_ITS | Encounter Summary ---
Author Organization [facility] Address [address] [facility] [place] [address] Care Team Providers Care Ore Roaster Name Role Phone Surya Mast MD Unavailable Surya Mast MD Primary Care Provider [phone] Zoila Fountain NP Unavailable [phone] Encounter Details Date Type Department Care Team [...] 11:30 AM EDT Office Visit [facility] [place] [facility] [address] [place] [address] Zoila Fountain [employer] [address] [place] [address] documented as of this encounter Procedures Procedure Name Priority Date/Time Associated Diagnosis Comments VASC US CAROTID ARTERY DUPLEX BILATERAL 06/01/2023 3:24 PM EST documented in this encounter Results * Vascular US carotid artery duplex bilateral (06/01/2023 3:24 PM EST) Anatomical Region Laterality Modality Neck Ultrasound 06/01/2023 3:24 PM EST Narrative 06/01/2023 3:24 PM EST [address] [address] Ultrasound Report Signed Patient: LISA JURADO MR#: [id number] : 1955 Acct:[id number] Age/Sex: 68 / M ADM Date: 06/01/23 Loc: CARD Attending Dr: EDISON HOPPER APRN Ordering Physician: EDISON HOPPER APRN Date of Service: 06/01/23 Procedure(s): US carotid duplex BI Accession Number(s): [id number] cc: SURYA MAST ; EDISON HOPPER APRN [address] [address] Patient Name: LISA JURADO MRN: [id number] date: 1955 Sex: M Assigned Patient Location: CARD Current Patient Location: CARD Accession/Order Number: [id number] Exam Date: 06/01/2023 10:00 Report Date: 06/01/2023 [...] Frey M.D. Signed By: 06/01/23 1526 DD/ 1524 TD/TT: Storage Center Manager: Procedure Note Radiology, Radiologist, MD - 06/01/2023 [place] [address] Ultrasound Report Signed Patient: LISA JURADO LMR#: [id number] : 1955cct:[id number] Age/Sex: 68 / MADM Date: 06/01/23 Loc: CARD Attending Dr: EDISON HOPPER APRN Ordering Physician: EDISON HOPPER APRN Date of Service: 06/01/23 Procedure(s): US carotid duplex BI Accession Number(s): [id number] cc: SURYA MAST ; EDISON HOPPER APRN [place] [address] Patient Name: LISA JURADO MRN: [facility]:[id number] date: 1955 Sex: M Assigned Patient Location: CARD Current Patient Location: CARD Accession/Order Number: [id number] Exam Date: 06/01/2023 10:00 Report Date: 06/01/2023 [...] US Thresholds (Reference: Mono EG, et al. [id number]; 214:247-252) Stenosis (%) PSV (cm/sec) VICA/VCCA 0-49 <150 <2.5 50-69 150-225 2.5-4.0 >70 >225 >4.0 Electronically authenticated by: IFEANYI FREY Date: 06/01/2023 15:24 Dictated By: Ifeanyi Frey M.D. Signed By:06/01/23 1526 DD/ 1524 TD/TT: Storage Center Manager: us Generic External Data Provider IMG US PROCEDURES Final Result documented in this encounter Visit Diagnoses Not on filedocumented in this encounter Care Teams Ore Roaster Relationship Specialty Start Date End Date Surya Mast MD [address] [address] PCP - [employer] 10/15/20 Surya Mast MD [address] [address] PCP - General Family Medicine 11/22/22 Zoila Fountain NP [address] [facility] 110 [place] [address] PCP - [employer] 03/17/24 documented as of this encounter
--- OUTSIDE RECORDS SUMMARY | 2025-02-11 10:33 | XMS_ITS | Encounter Summary ---
Author Organization [facility] Address [address] [facility] [place] [address] Care Team Providers Care Exploitation Analyst Name Role Phone Surya Hinton MD Unavailable Surya Hinton MD Primary Care Provider [phone] Zoila Fountain NP Unavailable [phone] Encounter Details Date Type Department Care Team (Late Contact Info) Description 11/23/2023 Abstract [facility] [place] Pederson [address] [facility] 110 [place] [phone] Surya Hinton MD [address] [facility] [address] [place] [address] Social History Tobacco Use Types Packs/Day Years [...] Pederson [address] [place] [address] Zoila Fountain CASER [address] [place] [address] documented as of this encounter Visit Diagnoses Not on filedocumented in this encounter Care Teams Exploitation Analyst Relationship Specialty Start Date End Date Surya Hinton MD [address] [facility] [address] [place] [address] PCP - Saul [employer] 10/15/20 Surya Hinton MD [address] [facility] [address] [place], [place] [id number] PCP - General Family Medicine 11/22/22 Zoila Fountain, IBIS [address] [facility] [address] [place], [place] [phone] PCP - Saul Commercial 03/17/24 documented as of this encounter
--- OUTSIDE RECORDS SUMMARY | 2025-02-11 10:33 | XMS_ITS | Encounter Summary ---
Author Organization [facility] Address [address] [place] [address] Care Team Providers Care Tie Fastener Name Role Phone Surya Hinton MD Unavailable Surya Hinton MD Primary Care Provider [phone] Zoila Fountain NP Unavailable [phone] Encounter Details Date Type Department Care Team (Late Contact Info) Description 11/06/2023 Abstract [facility] [place] Pederson [address] [facility] 110 [place] [address] Surya Hinton MD [address] [facility] 110 [place] [address] Social History Tobacco Use Types Packs/Day Years [...] Pederson [address] NBA 110 [place] [address] Zoila Fountain FURNACE TAPPER [address] 110 [place] [address] documented as of this encounter Visit Diagnoses Not on filedocumented in this encounter Care Teams Tie Fastener Relationship Specialty Start Date End Date Surya Hinton MD [address] [facility] 110 [place] [address] PCP - Saul Commercial 10/15/20 Surya Hinton MD [address] [facility] 110 [place], [place] [address] PCP - General Family Medicine 11/22/22 Zoila Fountain, IBIS [address] [facility] 110 [place], [place] [address] PCP - Saul Commercial 03/17/24 documented as of this encounter
--- OUTSIDE RECORDS SUMMARY | 2025-02-11 10:33 | XMS_ITS | Encounter Summary ---
Author Organization [facility] Address [address] [place] [address] Care Team Providers Care Library Helper Name Role Phone Surya Hinton MD Unavailable Surya Hinton MD Primary Care Provider [phone] Zoila Fountain NP Unavailable [phone] Encounter Details Date Type Department Care Team (Late st Contact Info) Description 11/03/2023 Orders Only [facility] [address] [id number] Davide Cobb MD 703 [facility] 150 [place] [address] Social History Tobacco Use Types [...] 11:30 AM EDT Office Visit [facility] [place] Medince [address] NBA 110 [place] [phone] Zoila Fountain, TIN WHIZ MACHINE OPERATOR [address] [place] [address] documented as of this encounter Procedures Procedure Name Priority Date/Time Associated Diagnosis Comments COLONOSCOPY Routine 11/03/2023 9:39 AM EDT documented in this encounter Results * Colonoscopy (11/03/2023 9:39 AM EDT) Anatomical Region Laterality Modality Endoscopy Davide Frias MD ENDOSCOPY PROCEDURE ORDERABL ES Final Result documented in this encounter Visit Diagnoses Not on filedocumented in this encounter Care Teams Library Helper Relationship Specialty Start Date End Date Surya Hinton MD 112 [facility] 110 [place] [address] PCP - [place] Commercial 10/15/20 Surya Hinton MD 112 [facility] 110 [place] [address] PCP - General Family Medicine 11/22/22 Zoila Fountain TIN WHIZ MACHINE OPERATOR 112 [facility] 110 [place] [address] PCP - [place] Commercial 03/17/24 documented as of this encounter
--- OUTSIDE RECORDS SUMMARY | 2025-02-11 10:33 | XMS_ITS | Encounter Summary ---
Author Organization [facility] Address [address] [facility] [place] [address] Care Team Providers Care Wood Finisher Apprentice Name Role Phone Surya Hinton MD Unavailable Surya Hinton MD Primary Care Provider [phone] Zoila Fountain NP Unavailable [phone] Encounter Details Date Type Department Care Team (Late Contact Info) Description 06/02/2023 Orders Only [facility] [place] Pederson [address] [facility] 110 [place] [address] A, Unknown Practice [address] [place], [place] [address] Social History Tobacco Use Types Packs/Day Years [...] [place] Pederson [address] NBA 110 [place] [address] Zoila Fountain, PROJECT DEVELOPMENT MANAGER [address] 110 [place], [place] [phone] documented as of this encounter Procedures Procedure [...] on filedocumented in this encounter Care Teams Wood Finisher Apprentice Relationship Specialty Start Date End Date Surya Hinton MD 112 [facility] 110 [place] [address] PCP - [place] Commercial 10/15/20 Surya Hinton MD 112 [facility] 110 [place] [address] PCP - General Family Medicine 11/22/22 Zoila Fountain PROJECT DEVELOPMENT MANAGER 112 [facility] 110 [place] [address] PCP - Saul Commercial 03/17/24 documented as of this encounter
--- OUTSIDE RECORDS SUMMARY | 2025-02-11 10:33 | XMS_ITS | Encounter Summary ---
Author Organization [facility] Address [address] [facility] [place] [address] Care Team Providers Care Licensed Insurance Sales Agent Name Role Phone Surya Hinton MD Primary Care Provider [phone] Encounter Details Date Type Department Care Team ([facility] Contact Info) Description 12/25/2024 Abstract [facility] [place] Pederson [address] [facility] 110 [place] [address] Sruya Hinton MD [address] [facility] 110 [place] [address] Social History Tobacco Use Types Packs/Day Years [...] Upcoming Encounters Date Type Department Care Team ([facility] Contact Info) Description 02/26/2025 11:30 AM EDT Office Visit [facility] [place] Carranzance [address] [facility] 110 [place] [address] Zoila Fountain NP [address] [facility] 110 [place] [address] documented as of this encounter Visit Diagnoses Not on filedocumented in this encounter Care Teams Licensed Insurance Sales Agent Relationship Specialty Start Date End Date Surya Hinton MD 112 [facility] 110 [place] [address] PCP - General Family Medicine 11/22/22 documented as of this encounter
--- OUTSIDE RECORDS SUMMARY | 2025-02-11 10:33 | XMS_ITS | Encounter Summary ---
Author Organization [facility] Address [address] [facility] [place] [address] Care Team Providers Care Rail Assembler Name Role Phone Surya Hinton MD Unavailable Surya Hinton MD Primary Care Provider [phone] Zoila Fountain NP Unavailable [phone] Encounter Details Date Type Department Care Team (Late Contact Info) Description 04/19/2023 Abstract [facility] [place] Pederson [address] [facility] 110 [place] [address] Surya Hinton MD [address] [facility] 110 [place] [address] Social History Tobacco Use Types [...] Pederson [address] NBA 110 [place] [address] Zoila Fountain SUPERVISOR PERSONNEL CLERKS [address] 110 [place] [address] documented as of this encounter Visit Diagnoses Not on filedocumented in this encounter Care Teams Rail Assembler Relationship Specialty Start Date End Date Surya Hinton MD [address] [facility] 110 [place] [address] PCP - Saul Commercial 10/15/20 Surya Hinton MD [address] [facility] 110 [place], [place] [address] PCP - General Family Medicine 11/22/22 Zoila Fountain, IBIS [address] [facility] 110 [place], [place] [address] PCP - Saul Commercial 03/17/24 documented as of this encounter
--- OUTSIDE RECORDS SUMMARY | 2025-02-11 10:33 | XMS_ITS | Encounter Summary ---
Author Organization [facility] Address [address] [facility] [place] [address] Care Team Providers Care Field Crop Grower Name Role Phone Surya Hinton MD Unavailable Surya Hinton MD Primary Care Provider [phone] Zoila Fountain NP Unavailable [phone] Encounter Details Date Type Department Care Team (Late Contact Info) Description 12/04/2023 Abstract [facility] [place] Pederson [address] [facility] 110 [place] [address] Surya Hinton MD [address] [email or web address] 110 [place] [address] Social History Tobacco Use Types Packs/Day Years [...] Pederson [address] NBA 110 [place] [address] Zoila Fountain LAB ASSOCIATE [address] N[address] 110 [place] [address] documented as of this encounter Visit Diagnoses Not on filedocumented in this encounter Care Teams Field Crop Grower Relationship Specialty Start Date End Date Surya Hinton MD [address] [email or web address] 110 [place] [address] PCP - Saul Commercial 10/15/20 Surya Hinton MD [address] [email or web address] 110 [place], [place] [address] PCP - General Family Medicine 11/22/22 Zoila Fountain, IBIS [address] [email or web address] 110 [place], [place] [address] PCP - Saul Commercial 03/17/24 documented as of this encounter
--- OUTSIDE RECORDS SUMMARY | 2025-02-11 10:33 | XMS_ITS | Encounter Summary ---
Author Organization [facility] Address [address] [facility] [place] [address] Care Team Providers Care Carriage Operator Name Role Phone Surya Hinton MD Primary Care Provider [phone] Zoila Fountain WELFARE SUPERVISOR Unavailable [phone] Encounter Details Date Type Department Care Team ([facility] Contact Info) Description 09/13/2024 Abstract [facility] [place] Guerra [address] [facility] 110 [place] [address] Surya Hinton MD [address] [facility] 110 [place] [address] Social History Tobacco Use Types Packs/Day Years [...] Upcoming Encounters Date Type Department Care Team ([facility] Contact Info) Description 02/26/2025 11:30 AM EDT Office Visit [facility] [place] Guerra [address] [facility] 110 [place] [address] Zoila Fountain NP [address] [facility] 110 [place] [address] documented as of this encounter Visit Diagnoses Not on filedocumented in this encounter Care Teams Carriage Operator Relationship Specialty Start Date End Date Surya Hinton MD 112 [facility] 110 [place] [address] PCP - General Family Medicine 11/22/22 Zoila Fountain WELFARE SUPERVISOR 112 [facility] 110 [place] [address] PCP - [place] Commercial 03/17/24 documented as of this encounter
--- OUTSIDE RECORDS SUMMARY | 2025-02-11 10:34 | XMS_ITS | Encounter Summary ---
Author Organization [facility] Address [address] [facility] [address] Care Team Providers Care Co Founder And Chief Strategy Officer Name Role Phone Surya Hinton MD Unavailable Surya Hinton MD Primary Care Provider [phone] Zoila Fountain NP Unavailable [phone] Encounter Details Date Type Department Care Team (Late Contact Info) Description 04/12/2023 Abstract [facility] [place] Pederson [address] [facility] 110 [place] [address] Surya Hinton MD [address] [facility] 110 [place] [address] Social History Tobacco Use Types Packs/Day Years [...] Pederson [address] NBA 110 [place] [address] Zoila Fountain INSECTICIDE MIXER [address] N[address] 110 [place] [address] documented as of this encounter Visit Diagnoses Not on filedocumented in this encounter Care Teams Co Founder And Chief Strategy Officer Relationship Specialty Start Date End Date Surya Hinton MD [address] [facility] 110 [place] [address] PCP - Saul Commercial 10/15/20 Surya Hinton MD [address] [facility] 110 [place], [place] [address] PCP - General Family Medicine 11/22/22 Zoila Fountain, IBIS [address] [facility] 110 [place], [place] [address] PCP - Saul Commercial 03/17/24 documented as of this encounter
--- OUTSIDE RECORDS SUMMARY | 2025-02-11 10:34 | XMS_ITS | Encounter Summary ---
Author Organization [facility] Address [address] [facility] [place] [address] Care Team Providers Care Over The Road Driver Name Role Phone Surya Hinton MD Unavailable Surya Hinton MD Primary Care Provider [phone] Zoila Fountain NP Unavailable [phone] Encounter Details Date Type Department Care Team (Late Contact Info) Description 07/05/2023 Abstract [facility] [place] Pederson [address] [facility] 110 [place] [address] Surya Hinton MD [address] [facility] 110 [place] [address] Social History Tobacco Use Types Packs/Day Years [...] Pederson [address] NBA 110 [place] [address] Zoila Fountain PILLAR WORKER [address] 110 [place] [address] documented as of this encounter Visit Diagnoses Not on filedocumented in this encounter Care Teams Over The Road Driver Relationship Specialty Start Date End Date Surya Hinton MD [address] [facility] 110 [place] [address] PCP - Saul Commercial 10/15/20 Surya Hinton MD [address] [facility] 110 [place], [place] [address] PCP - General Family Medicine 11/22/22 Zoila Fountain, IBIS [address] [facility] 110 [place], [place] [address] PCP - Saul Commercial 03/17/24 documented as of this encounter
--- OUTSIDE RECORDS SUMMARY | 2025-02-11 10:34 | XMS_ITS | Clinical Summary ---
Author Organization [facility] Address [id number] [address] [place] [address] Care Team Providers Care Boilers Inspector Name Role Phone Unavailable Primary Care Provider [...]
--- OUTSIDE RECORDS SUMMARY | 2025-02-11 10:34 | XMS_ITS | Encounter Summary ---
Author Organization [facility] Address [address] [facility] [place] [address] Care Team Providers Care Grant Specialist Name Role Phone Surya Hinton MD Unavailable Surya Hinton MD Primary Care Provider [phone] Zoila Fountain NP Unavailable [phone] Encounter Details Date Type Department Care Team [...] [facility] [place] Medince [address] [facility] 110 [place] [address] Zoila Fountain ELECTRICIAN SUPERVISOR [address] [facility] 110 [place], [place] [address] documented as of this encounter Procedures Procedure Name Priority Date/Time Associated Diagnosis Comments CA ECHO DOPPLER COMPLETE 06/02/2023 2:39 PM EST documented in this encounter Results * CA ECHO DOPPLER COMPLETE (06/02/2023 2:39 PM EST) Anatomical Region Laterality Modality Other 06/02/2023 2:39 PM EST Narrative 06/02/2023 2:39 PM EST [address] [address] Cardiology Report Signed Patient: LISA JURADO MR#: [id number] : 1955 Acct:[id number] Age/Sex: 68 / M ADM Date: 06/01/23 Loc: CARD Attending Dr: EDISON HOPPER APRN Ordering Physician: EDISON HOPPER APRN Date of Service: 06/01/23 Procedure(s): CA echo doppler complete Accession Number(s): [id number] cc: Patient Name: LISA JURADO MR#: [id number] : 1955 Exam Date: 06/01/2023 Ordering Doctor: EDISON HOPPER CHIEF LEGAL OFFICER ECHOCARDIOGRAM REPORT PROCEDURE: CARDIO PULMONARY ECHOCARDIO M/2D COMP INDICATIONS: Syncope and collapse, coronary artery disease, CABGx6, MA, hypertension, diabetes COMPARISON: None. DESCRIPTION: COMPLETE ECHOCARDIOGRAM [...] Signed By: 06/02/23 1440 DD/ 1439 TD/TT: Brazing Machine Operator Automatic: Procedure Note Radiology, Radiologist, MD - 06/02/2023 [place] [address] Cardiology Report Signed Patient: LISA JURADO LMR#: [id number] : 1955cct:[id number] Age/Sex: 68 / MADM Date: 06/01/23 Loc: CARD Attending Dr: EDISON HOPPER APRN Ordering Physician: EDISON HOPPER APRN Date of Service: 06/01/23 Procedure(s): CA echo doppler complete Accession Number(s): [id number] cc: Patient Name: LISA JURADO MR#: [id number] : 1955 Exam Date: 06/01/2023 Ordering Doctor: EDISON HOPPER CHIEF LEGAL OFFICER ECHOCARDIOGRAM REPORT PROCEDURE: CARDIO PULMONARY ECHOCARDIO M/2D COMP INDICATIONS: Syncope and collapse, coronary artery disease, CABGx6,MA, hypertension, diabetes COMPARISON: None. DESCRIPTION: COMPLETE ECHOCARDIOGRAM [...] M.D. Signed By:06/02/23 1440 DD/ 1439 TD/TT: Brazing Machine Operator Automatic: Generic External Data Provider [facility] Final Result documented in this encounter Visit Diagnoses Not on filedocumented in this encounter Care Teams Grant Specialist Relationship Specialty Start Date End Date Surya Hinton MD [address] [place] [address] PCP - [place] Commercial 10/15/20 Surya Hinton MD [address] [facility] 110 [place] [address] PCP - General Family Medicine 11/22/22 Zoila Fountain NP [address] [facility] 110 [place] [address] PCP - [place] Commercial 03/17/24 documented as of this encounter
--- OUTSIDE RECORDS SUMMARY | 2025-02-11 10:34 | XMS_ITS | Encounter Summary ---
Author Organization [facility] Address [address] [place] [address] Care Team Providers Care Policy Specialist Name Role Phone Surya Hinton MD Primary Care Provider [phone] Reason for Visit * Reason Comments Med Refill Encounter Details Date Type Department Care Team (Late st Contact Info) Description 03/15/2023 Refill [facility] at [facility] [address] [place] [address] Judi Wilson MD [address] [facility] [place] [address] Benign hypertensive heart disease without [...] Description 04/03/2025 2:00 PM EDT Office Visit [facility] [address] [place] [address] Reed Estrella MD [address] [place] [address] documented as of this encounter Visit Diagnoses Diagnosis Benign hypertensive heart disease without congestive heart failure Benign hypertensive heart disease without heart failure documented in this encounter Care Teams Policy Specialist Relationship Specialty Start Date End Date Surya Hinton MD [address] [place] [address] PCP - General 05/18/22 documented as of this encounter
--- OUTSIDE RECORDS SUMMARY | 2025-02-11 10:34 | XMS_ITS | Encounter Summary ---
Author Organization [facility] Address [address] [facility] [place] [address] Care Team Providers Care Mail Handler Name Role Phone Surya Hinton MD Primary Care Provider [phone] Zoila Fountain ROUTE DELIVERY SUPERVISOR Unavailable [phone] Encounter Details Date Type Department Care Team ([facility] Contact Info) Description 08/20/2024 Abstract [facility] [place] Guerra [address] [facility] 110 [place] [address] Surya Hinton MD [address] [facility] 110 [place] [address] Social History Tobacco Use Types Packs/Day Years [...] Upcoming Encounters Date Type Department Care Team ([facility] Contact Info) Description 02/26/2025 11:30 AM EDT Office Visit [facility] [place] Guerra [address] [facility] 110 [place] [address] Zoila Fountain NP [address] [facility] 110 [place] [address] documented as of this encounter Visit Diagnoses Not on filedocumented in this encounter Care Teams Mail Handler Relationship Specialty Start Date End Date Surya Hinton MD 112 [facility] 110 [place] [address] PCP - General Family Medicine 11/22/22 Zoila Fountain ROUTE DELIVERY SUPERVISOR 112 [facility] 110 [place] [address] PCP - [place] Commercial 03/17/24 documented as of this encounter
--- OUTSIDE RECORDS SUMMARY | 2025-02-11 10:34 | XMS_ITS | Encounter Summary ---
Author Organization [facility] Address [address] [facility] [place] [address] Care Team Providers Care Social Psychologist Name Role Phone Surya Hinton MD Unavailable Surya Hinton MD Primary Care Provider [phone] Zoila Fountain NP Unavailable [phone] Encounter Details Date Type Department Care Team (Late Contact Info) Description 03/15/2024 Abstract [facility] [place] Pederson [address] [facility] 110 [place] [address] Surya Hinton MD [address] [facility] 110 [place] [address] Social History Tobacco Use Types Packs/Day Years [...] Pederson [address] [place] [address] Zoila Fountain PHYSICS AND ASTRONOMY PROFESSOR [address] [place] [address] documented as of this encounter Visit Diagnoses Not on filedocumented in this encounter Care Teams Social Psychologist Relationship Specialty Start Date End Date Surya Hinton MD [address] [facility] 110 [place] [address] PCP - Saul Commercial 10/15/20 Surya Hinton MD [address] [facility] 110 [place], [place] [address] PCP - General Family Medicine 11/22/22 Zoila Fountain, IBIS [address] [facility] 110 [place], [place] [address] PCP - Saul Commercial 03/17/24 documented as of this encounter
--- OUTSIDE RECORDS SUMMARY | 2025-02-11 10:34 | XMS_ITS | Clinical Summary ---
Author Organization [facility] Address [address] [place] [address] Phone Care Team Providers Care Miniature Train Driver Name Role Phone Surya Hinton MD Primary Care Provider [phone] Social History Tobacco Use Types Packs/Day Years [...] of Treatment Not on file Care Teams Miniature Train Driver Relationship Specialty Start Date End Date Surya Hinton MD [address] [place] [address] PCP - General 05/28/21
--- OUTSIDE RECORDS SUMMARY | 2025-02-11 10:34 | XMS_ITS | Clinical Summary ---
Author Organization [facility] Address [address] [place] [address] Care Team Providers Care Chimney Builder Name Role Phone Surya Hinton MD Primary Care Provider [phone] Allergies No known active allergies Medications aspirin [...] type, unspecified whether angina present, unspecified whether the [place] or transplanted heart Take 1 tablet (10 [...] Description 01/06/2025 3:00 PM EDT Office Visit [facility] [address] [place] [address] Reed Estrella MD Persistent atrial fibrillation (CMS/HCC) (Primary Dx) 12/18/2024 Telephone [facility] [address] [place] [address] Codie Reynoso MA 12/12/2024 1:45 PM EDT Follow-Up [facility] [address] [place] [address] Judi Wilson MD Paroxysmal atrial fibrillation (CMS/HCC) 11/29/2024 10:35 AM EDT - 11/29/2024 11:35 AM EDT Surgery [facility] [address] [place] [address] Jose Menjivar MD Cardioversion 11/29/2024 8:55 AM EDT - 11/29/2024 11:46 AM EDT Hospital Encounter [facility] [address] [place] [address] [place] Brake Lining CurerMD Atrial fibrillation, unspecified type (CMS/HCC) Discharge Disposition: Home or Self Care () 11/29/2024 8:54 AM EDT Hospital Encounter [facility] [address] [facility] [place] [address] Atrial fibrillation, unspecified type (CMS/HCC); Nonrheumatic mitral valve regurgitation Discharge Disposition: Home or Self Care () 11/29/2024 Travel 11/22/2024 Telephone [facility] [address] [place] [address] Anamaria Naik MA 11/22/2024 Travel 11/13/2024 1:30 PM EDT Office Visit [facility] [address] [place] [address] Nikko Roche CNP New onset atrial fibrillation (CMS/HCC) (Primary Dx); Atrial fibrillation, unspecified type (CMS/HCC); Acute heart failure with preserved ejection fraction (CMS/HCC); Bilateral lower extremity edema; BARRON (dyspnea on exertion); Resistant hypertension; PAC (premature atrial contraction); Irregularly irregular pulse rhythm; Coronary artery disease, unspecified vessel or lesion type, unspecified whether angina present, unspecified whether the [place] or transplanted heart; Nonrheumatic mitral valve regurgitation; [...] Recorded Patient Health Questionnaire-2 Score 0 08/17/2022 [place] Safety & Environment Answer Date Rec orded [...] Description 04/03/2025 2:00 PM EDT Office Visit [facility] [address] [place] [address] Reed Estrella MD [address] [place] [address] Health Maintenance Due Date Last Done Comments CT Colonography 1955 Diabetes: Hemoglobin A1C 1955 FOBT 1955 Medicare Annual Wellness (AWV) 1955 Sigmoidoscopy 1955 Diabetes: Retinopathy Screening 1963 Depression Screening 1965 Pneumococcal Vaccine: 50+ Years (1 of 2 - PCV) 1972 Adult Tetanus 1975 Zoster Vaccines (1 of 2) 2003 Fall Risk Screening 2018 COVID-19 Vaccine (4 - 2023-2 5 season) 2024 11/11/2020, 10/21/2020, 10/21/2020 FIT 08/20/2024 08/20/2023 Influenza Vaccine (#1) 2025 FIT-DNA 08/20/2026 08/20/2023 Colonoscopy 11/02/2033 11/03/2023 Colorectal Cancer Screening 11/02/2033 [...] resultswithin the time period is included. Pathologist [facility] Ventricular Rate 62 BPM GE MUSE Atrial Rate 62 BPM GE MUSE SC Interval 168 ms GE MUSE QRS DURATION 92 ms GE MUSE QT Interval 476 ms GE MUSE QTC CALCULATION(BAZE TT) 483 ms GE MUSE P [place] 74 degrees GE MUSE R-[place] 21 degrees GE MUSE T Wave [place] -15 degrees GE MUSE 11/29/2024 10:5 4 [...] EDT Narrative 11/29/2024 11:00 PM EDT 1 [facility] [address] [place] [address] [phone] (fax) Transesophageal Echocardiogram[facility] Name: TAWANDA JURADO Study Date: 11/29/2024 10:13 AM B/P: 164 mmHg/122 mmHg HR: Date of : 1955 Location: [facility] Height: 70 in. Age: 69 year(s) Patient Room: Weight: 257 lb. Gender: Male Patient Status: OutPt BSA: 2.32 m2 Indication: Atrial Fibrillation, Pre-cardioversion, Mitral regurgitation Examination: CADEN (Transesophageal Echo / CFI), Limited Doppler Image Quality: Adequate Patient Consent: Informed, written consent was obtained for the procedure Examination: A CADEN was performed without complications Exam Location: A CADEN was performed in the [place] [employer] without complications Anesthesia Pharyngeal anesthesia with viscous [...] reviewed the examination Procedure Staff Reading Group: [place] [facility] Circulation Sales Representative: Vu Gomez RDCS Ordering Physician: NIKKO ROCHE Procedure Note Jose Menjivar MD - 11/29/2024 1 [facility] [address] [place], [place] [phone] (fax) Transesophageal Echocardiogram[facility] Name: TAWANDA JURADO Study Date: 11/29/2024 10:13 AM B/P: 164 mmHg/122 mmHg HR: Date of : 1955 Location: [facility] Height: 70 in. Age: 69 year(s) Patient Room: Weight: 257 lb. Gender: Male Patient Status: OutPt BSA: 2.32 m2 Indication: Atrial Fibrillation, Pre-cardioversion, Mitral regurgitation Examination: CADEN (Transesophageal Echo / CFI), Limited Doppler Image Quality: Adequate Patient Consent: Informed, written consent was obtained for the procedure Examination: A CADEN was performed without complications Exam Location: A CADEN was performed in the [place] [employer] without complications Anesthesia Pharyngeal anesthesia with viscous [...] reviewed the examination Procedure Staff Reading Group: [facility] Circulation Sales Representative: Vu Gomez RDCS Ordering Physician: NIKKO ROCHE Result [facility] Nikko Roche [facility] CV ECHO PROCEDURES Final Result * CARDIOVERSION (11/29/2024 10:54 AM EDT) Anatomical Region Laterality Modality Other Narrative 12/02/2024 10:50 AM EDT Indication: Atrial Fibrillation. Performing physician: Jose Menjivar MD City Councilman: None. Procedure: DC cardioversion. Informed consent was obtained from the patient. The patient was brought to the technical laboratory asst and conscious sedation was given with versed [...] Menjivar MD Study Details Persistent atrial fibrillation ([facility]) [I48.19] Nikko Roche [facility] CV ELECTROPHYSIOLOGY PROCEDURES Final Result from Last 3 Months Insurance [place] [address] Care Teams Chimney Builder Relationship Specialty Start Date End Date Surya Hinton MD 3 [facility] PCP - General 05/18/22
--- OUTSIDE RECORDS SUMMARY | 2025-02-11 10:34 | XMS_ITS | Encounter Summary ---
Author Organization [facility] Address [address] [place] [facility] [place] [address] Care Team Providers Care Director Of Diversity And Inclusion Name Role Phone Surya Hinton MD Unavailable Surya Hinton MD Primary Care Provider [phone] Zoila Fountain NP Unavailable [phone] Encounter Details Date Type Department Care Team (Late Contact Info) Description 03/15/2024 Abstract [facility] [place] Pederson [address] [place] [phone] Surya Hinton MD [address] [facility] [address] [place] [address] Social History Tobacco Use Types Packs/Day Years [...] Pederson [address] [place] [address] Zoila Fountain BOTTOM POUNDER CEMENT SHOES [address] [place] [address] documented as of this encounter Visit Diagnoses Not on filedocumented in this encounter Care Teams Director Of Diversity And Inclusion Relationship Specialty Start Date End Date Surya Hinton MD [address] [facility] [address] [place] [address] PCP - [employer] 10/15/20 Surya Hinton MD [address] [facility] [address] [place], [place] [phone] PCP - General Family Medicine 11/22/22 Zoila Fountain, IBIS [address] [facility] [address] [place], [place] [phone] PCP - Saul [employer] 03/17/24 documented as of this encounter
--- OUTSIDE RECORDS SUMMARY | 2025-02-11 10:34 | XMS_ITS | Encounter Summary ---
Author Organization [facility] Address [address] [facility] [place] [address] Care Team Providers Care Light Rail Vehicle Operator Name Role Phone Surya Hinton MD Primary Care Provider [phone] Encounter Details Date Type Department Care Team (Late Contact Info) Description 02/07/2025 Clinisync Result Encounter [facility] External [...] Upcoming Encounters Date Type Department Care Team ([facility] Contact Info) Description 02/26/2025 11:30 AM EDT Office Visit [facility] [place] Pederson [address] [facility] [address] [place] [address] Zoila Fountain NP [address] [place] [address] documented as of this encounter Procedures Procedure Name Priority Date/Time Associated Diagnosis Comments TBH URINE T PROTEIN CREAT RATIO Routine 02/07/2025 7:58 AM EDT ALL URINALYSIS Routine 02/07/2025 7:58 AM EDT TSH W/REFLEX T4 Routine 02/07/2025 6:55 AM EDT TBH VITAMIN D 25 [place] Routine 02/07/2025 6 :55 AM EDT [facility] PTH, INTRAOPERATIVE Routine 02/07/2025 6:55 AM EDT [facility] CORTISOL Routine 02/07/2025 6:55 AM EDT [facility] CBC WITH PLATELET NO DIFFERENTIAL Routine 02/07/2025 6:55 AM EDT ALL URIC ACID Routine 02/07/2025 6:55 AM EDT ALL RENAL FUNCTION PANEL Routine 02/07/2025 6:55 AM EDT ALL MAGNESIUM Routine 02/07/2025 6:55 AM EDT documented in this encounter Results * (ABNORMAL) TBH URINE T PROTEIN CREAT RATIO (02/07/2025 7:58 AM EDT) TOTAL PROTEIN URINE RANDOM 47.1(H) <=11.9 mg/dL TBH CREATININE URINE RANDOM 141.02 20.00 - 300.00 mg/dL TBH PROTEIN CREATININE RATIO URINE 0.33 TBH 02/07/2025 7:58 AM EDT 02/07/2025 8:00 AM EDT Narrative CLINISYNC - 02/07/2025 9:30 AM EDT us Generic External Data Provider CLINISYNC F inal Result [facility] * (ABNORMAL) ALL URINALYSIS (02/07/2025 7:58 AM [...] 8:00 AM EDT Narrative CLINISYNC - 02/07/2025 9:22 AM EDT Generic External Data Provider CLINISYNC F inal Result CLINISYNC [facility] * (ABNORMAL) [facility] PTH, INTRAOPERATIVE (02/07/2025 6:55 AM EDT) PTH, INTACT 101(A) 15 - 65 pg/mL TB Comment: Performed at: [email or web address] [id number] Lithograph Press Feeder: Dionicio Clements PhD, Phone: [phone] 02/07/2025 6:55 AM EDT 02/07/2025 6:57 AM EDT Narrative CLINISYNC - 02/09/2025 11:07 AM EDT Generic External Data Provider CLINISYNC F inal Result Performing Organization Address City/[facility] Co de Phone Number CLINISYNC [facility] * [facility] CORTISOL (02/07/2025 6:55 AM EDT) Pathologist [facility] CORTISOL 18.5 6.2 - 19.4 ug/dL TB Comment: Please Note: The reference interval and flagging for this test is for an AM collection. If this is a PM collection please use: Cortisol PM: 2.3-11.9 Performed at: [id number] [id number] Lithograph Press Feeder: Dionicio Clements PhD, Phone: [phone] 02/07/2025 6:55 AM EDT 02/07/2025 6:57 AM EDT Narrative CLINISYNC - 02/08/2025 8:08 AM EDT Generic External Data Provider JESSICAISYNC Rosemary knapp Result Performing Organization Address [facility] de Phone Number [facility] * TBH VITAMIN D 25 [place] (02/07/2025 6:55 AM EDT) VITAMIN D 26.1 ng/mL TBH Comment: <20 ng/mL Vit D deficient 20-<30 ng/mL Vit D insufficient 30-100 ng/mL Vit D sufficient >100 ng/mL Potential Toxicity 02/07/2025 6:55 AM EDT 02/07/2025 6:57 AM EDT Narrative CLINISYNC - 02/07/2025 12:31 PM EDT Generic External Data Provider JESSICAISYNC F inal Result Performing Organization Address [facility] Co de Phone Number [facility] * TSH W/REFLEX T4 (02/07/2025 6:55 AM EDT) TSH 3.474 0.358 - 3.740 uIU/mL TBH 02/07/2025 6:55 AM EDT 02/07/2025 6:57 AM EDT Narrative CLINISYNC - 02/07/2025 11:29 AM EDT Generic External Data Provider LAB BLOOD ORDERAB LES Final Result Performing Organization Address [facility] Co de Phone Number [facility] * ALL MAGNESIUM (02/07/2025 6:55 AM EDT) MAGNESIUM 2.0 1.8 - 2.4 mg/dL TBH 02/07/2025 6:55 AM EDT 02/07/2025 6:57 AM EDT Narrative CLINISYNC - 02/07/2025 11:29 AM EDT Generic External Data Provider CLINISYNC F inal Result Performing Organization Address [facility]/ZIP Co de Phone Number [facility] * ALL URIC ACID (02/07/2025 6:55 AM EDT) URIC ACID 7.0 3.5 - 7.2 mg/dL TB 02/07/2025 6:55 AM EDT 02/07/2025 6:57 AM EDT Narrative CLINISYNC - 02/07/2025 11:29 AM EDT Generic External Data Provider CLINISYNC F inal Result Performing Organization Address [facility] de Phone Number [facility] * (ABNORMAL) ALL RENAL FUNCTION PANEL (02/07/2025 [...] 0.70 - 1.30 mg/dL TBH TBH EGFR-AF FINNISH 39(L) >=60 mL/min/1.7 3m 2 TBH TBH EGFR-NON AF FINNISH 32(L) >=60 mL/min/1.7 3m 2 TBH BUN CREATININE RATIO 13.2 TBH CALCIUM 8.4(L) 8.5 - 10.1 mg/dL TBH PHOSPHORUS 4.0 2.6 - 4.7 mg/dL TBH ALBUMIN LEVEL 3.2(L) 3.4 - 5.0 g/dL TBH 02/07/2025 6:55 AM EDT 02/07/2025 6:57 AM EDT Narrative CLINISYNC - 02/07/2025 11:29 AM EDT Generic External Data Provider CLINISYNC F inal Result Performing Organization Address City/[facility] Co de Phone Number CLINISYNC TBH * (ABNORMAL) [facility] CBC WITH PLATELET NO DIFFERENTIAL (02/07/2025 6:55 AM EDT) TBH WBC 6.3 4.0 - 11.0 10 3/uL TBH TBH RBC 3.95(L) 4.70 - 6.10 10 6/uL TBH TBH HGB 11.5(L) 14.0 - 18.0 g/dL TBH TBH HCT 35.2(L) 42.0 - 54.0 % TBH TBH MCV 89.1 80.0 - 94.0 fL TBH TBH MCH 29.1 25.9 - 34.0 pg TBH TBH MCHC 32.7 29.9 - 35.2 g/dL TBH TBH RDW 15.8(H) 11.0 - 15.0 % TBH TBH PLT 179 150 - 450 10 3/uL TBH TBH MPV 11.4 9.5 - 13.5 fL TBH 02/07/2025 6:55 AM EDT 02/07/2025 6:57 AM EDT Narrative CLINISYNC - 02/07/2025 7:14 AM EDT Generic External Data Provider CLINISYNC F inal Result Performing Organization Address [facility] Co de Phone Number CLINISYNC TB documented in this encounter Visit Diagnoses Not on filedocumented in this encounter Care Teams Light Rail Vehicle Operator Relationship Specialty Start Date End Date Surya Hinton MD [address] [facility] [address] [place] [address] PCP - General Family Medicine 11/22/22 documented as of this encounter
[2025-02-13 10:11] LABS: Metanephrine, U,24hr 105 ug/24 hr (58-276); Metanephrine, Ur 42 ug/L (Undefined); Normetanephr.,U,24h 305 ug/24 hr (156-729)
== END 2025-02-08 10:32 | disposition home or self-care (01) ==
LOC: LAB 10:31
PROVIDERS: PCP Family Medicine; Visit Provider Internal Medicine Nephrology
DX: I12.9 Hypertensive chronic kidney disease with stage 1 through stage 4 chronic kidney disease, or unspecified chronic kidney disease (principal); N18.32 Chronic kidney disease, stage 3b; E11.21 Type 2 diabetes mellitus with diabetic nephropathy
CPT/HCPCS: 83835

== ENCOUNTER 2025-02-13 07:14 | Outpatient (OUT) | payer MEDICARE, SELFPAY ==
--- OUTSIDE RECORDS SUMMARY | 2025-02-13 07:16 | XMS_ITS | Encounter Summary ---
Author Organization [facility] Address [address] [facility] [place] [place] [address] Care Team Providers Care Scraper Burrer Name Role Phone Surya Hinton MD Primary Care Provider [phone] Zoila Fountain AIR BRUSH OPERATOR Unavailable [phone] Encounter Details Date Type Department Care Team ([facility] Contact Info) Description 08/14/2024 Abstract [facility] Saran Guerra [address] [facility] [address] [place] [phone] Surya Hinton MD [address] [facility] [address] [place] [address] Social History Tobacco Use Types Packs/Day Years [...] Upcoming Encounters Date Type Department Care Team ([facility] Contact Info) Description 02/26/2025 11:30 AM EDT Office Visit [facility] Saran Guerra [address] [facility] [address] [place] [phone] Zoila Fountain NP [address] [facility] 110 [place] [address] documented as of this encounter Visit Diagnoses Not on filedocumented in this encounter Care Teams Scraper Burrer Relationship Specialty Start Date End Date Surya Hinton MD [address] [facility] 110 [place] [address] PCP - General Family Medicine 11/22/22 Zoila Fountain AIR BRUSH OPERATOR [address] [facility] 110 [place] [address] PCP - [place] [employer] 03/17/24 documented as of this encounter
--- OUTSIDE RECORDS SUMMARY | 2025-02-13 07:16 | XMS_ITS | Clinical Summary ---
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 5 Active ezetimibe (Zetia) 10 MG tablet Take 10 mg by mouth in the morning. 5 11/14/19 Active furosemide (Lasix) 40 MG tablet Take 40 mg by mouth in the morning. 5 11/09/19 Active Active Problems Problem Noted Date Diagnosed [...] Generic External Data 12/25/2024 Abstract [facility] [place] [facility] [address] [facility] [address] [place] [phone] Surya Hinton MD 12/18/2024 Clinisync Result Encounter NOMS External Department Unsolicited Provider, Generic External Data 12/13/2024 Clinisync Result Encounter NOMS External Department Unsolicited Provider, Generic External Data 12/02/2024 Abstract [facility] [place] Guerra [address] [facility] [address] [place] [address] Surya Hinton MD 11/26/2024 9:00 AM EDT Office Visit [facility] [place] Guerra [address] [facility] [address] [place] [address] Zoila Fountain NP Insomnia, unspecified type (Primary Dx); Type 2 diabetes mellitus with hyperglycemia, unspecified whether medical terminologist insulin use (HCC); Flatulence 11/26/2024 Bamboo flowsheet [facility] [place] [facility] [address] [facility] [address] [place] [address] Zoila Fountain NP 11/26/2024 Travel 11/22/2024 Clinisync [...] EDT Office Visit [facility] [place] Pederson [address] [facility] 110 [place] [address] Zoila Fountain NP 112 [facility] 110 [place] [address] Health Maintenance Due Date Last Done Comments [...] ALL URINALYSIS Routine 02/07/2025 7:58 AM EDT [facility] RENIN,PLASMA Routine 02/07/2025 6:55 AM EDT [facility] PTH, INTRAOPERATIVE Routine 02/07/2025 [...] 2 diabetes mellitus with hyperglycemia, unspecified whether medical terminologist insulin use (HCC) ALL PRO BNP Routine [...] Data Provider CLINISYNC F inal Result CLINISYNC [facility] * (ABNORMAL) ALL URINALYSIS (02/07/2025 7:58 AM [...] CLINISYNC F inal Result Performing Organization Address [facility] Co de Phone Number CLINISYNC TB * TSH W/REFLEX T4 (02/07/2025 6:55 AM EDT) TSH 3.474 0.358 - 3.740 uIU/mL TB 02/07/2025 6:55 AM EDT 02/07/2025 6:57 AM EDT Narrative CLINISYNC - 02/07/2025 11:29 AM EDT Generic External Data Provider LAB BLOOD ORDERAB LES Final Result Performing Organization Address [facility] Co de Phone Number CLINISYNC TB * (ABNORMAL) UH RENIN,PLASMA (02/07/2025 6:55 AM EDT) RENIN ACTIVITY, PLASMA <0.167(A) 0.167 - 5.380 ng/mL/hr TBH Comment: This test was developed and its performance characteristics determined by [facility]. It has not been cleared or approved by the Food and Drug Administration. Performed at: [address] [id number] Casting Machine Set Up Operator: Paige Laura MD, Phone: [phone] 02/07/2025 6:55 AM EDT 02/07/2025 6:57 AM EDT Narrative CLINISYNC - 02/11/2025 11:08 AM EDT us Generic External Data Provider CLINISYNC F inal Result Performing Organization Address [facility]/ZIP Co de Phone Number CLINISYNC TB * TBH VITAMIN D 25 [place] (02/07/2025 6:55 AM EDT) VITAMIN D 26.1 ng/mL TB Comment: <20 ng/mL Vit D deficient 20-<30 ng/mL Vit D insufficient 30-100 ng/mL Vit D sufficient >100 ng/mL Potential Toxicity 02/07/2025 6:55 AM EDT 02/07/2025 6:57 AM EDT Narrative CLINISYNC - 02/07/2025 12:31 PM EDT Generic External Data Provider CLINISYNC F inal Result Performing Organization Address City/[facility] Co de Phone Number [facility] * (ABNORMAL) [facility] PTH, INTRAOPERATIVE (02/07/2025 6:55 AM EDT) PTH, INTACT 101(A) 15 - 65 pg/mL TB Comment: Performed at: [employer] [facility] [id number] Casting Machine Set Up Operator: Dionicio Clements PhD, Phone: [phone] 02/07/2025 6:55 AM EDT 02/07/2025 6:57 AM EDT Narrative CLINISYNC - 02/09/2025 11:07 AM EDT Generic External Data Provider CLINISYNC F inal Result Performing Organization Address City/[facility] Co de Phone Number [facility] * [facility] CORTISOL (02/07/2025 6:55 AM EDT) Pathologist [facility] CORTISOL 18.5 6.2 - 19.4 ug/dL TB Comment: Please Note: The reference interval and flagging for this test is for an AM collection. If this is a PM collection please use: Cortisol PM: 2.3-11.9 Performed at: [employer] [facility] [id number] Cast[employer] Machine Set Up Operator: Dionicio Clements PhD, Phone: [phone] 02/07/2025 6:55 AM EDT 02/07/2025 6:57 AM EDT Narrative CLINISYNC - 02/08/2025 8:08 AM EDT Generic External Data Provider CLINISYNC F inal Result Performing Organization Address [facility]/ZIP Co de Phone Number [facility] * (ABNORMAL) [facility] CBC WITH PLATELET NO DIFFERENTIAL (02/07/2025 6:55 [...] External Data Provider CL[facility]ISYNC F inal Result [facility] * ALL URIC ACID (02/07/2025 6:55 AM EDT) URIC ACID 7.0 3.5 - 7.2 mg/dL TB 02/07/2025 6:55 AM EDT 02/07/2025 6:57 AM EDT Narrative CLINISYNC - 02/07/2025 11:29 AM EDT Generic External Data Provider CLINISYNC F inal Result [facility] * (ABNORMAL) ALL RENAL FUNCTION PANEL [...] 0.70 - 1.30 mg/dL TBH TBH EGFR-AF ALBANIAN 39(L) >=60 mL/min/1.7 3m 2 TBH TBH EGFR-NON AF ALBANIAN 32(L) >=60 mL/min/1.7 3m 2 TBH BUN CREATININE RATIO 13.2 TBH CALCIUM 8.4(L) 8.5 - 10.1 mg/dL TBH PHOSPHORUS 4.0 2.6 - 4.7 mg/dL TBH ALBUMIN LEVEL 3.2(L) 3.4 - 5.0 g/dL TBH 02/07/2025 6:55 AM EDT 02/07/2025 6:57 AM EDT Narrative CLINISYNC - 02/07/2025 11:29 AM EDT Generic External Data Provider CLINISYNC F inal Result CLINISYNC [facility] * ALL MAGNESIUM (02/07/2025 6:55 AM EDT) MAGNESIUM 2.0 1.8 - 2.4 mg/dL TBH 02/07/2025 6:55 AM EDT 02/07/2025 6:57 AM EDT Narrative CLINISYNC - 02/07/2025 11:29 AM EDT Generic External Data Provider CLINISYNC F inal Result Document [facility] * ITP (12/18/2024 2:42 PM EDT) Only the most recent of2 resultswithin the time period is included. Anatomical Region Laterality Modality Other 12/18/2024 2:42 PM EDT Narrative 12/18/2024 4:43 [place] [address] Cardiac Rehab Report Signed Patient: TAWANDA JURADO MR#: [id number] : 1955 Acct:[id number] Age/Sex: 69 / M ADM Date: 12/18/24 Loc: CR Attending Dr: Judi Clark M.D. Ordering Physician: Judi Clark M.D. Date of Service: 12/18/24 Procedure(s): ITP Accession Number(s): [id number] cc: The [facility] Test Date: 2024-12-18 Pat Name: TAWANDA JURADO Department: Room: - Gender: Male Border Inspector: : 1955 Requested By: JUDI CLARK Order Number: [id number] Reading MD: Raphael Justin Interpretive Statements Okay to proceed with outlined treatment plan. Electronically Signed On 12-18-2024 16:43:09 EDT by Raphael Justin Dictated By: Raphael Justin D.O. Signed By: 12/18/243 12/18/24 164 DD/ 1442 TD/TT: Receiver Setter: Procedure Note Radiology, Radiologist, MD - 12/19/2024 The [place] [id number] Cardiac Rehab Report Signed Patient: TAWANDA JURADO LMR#: [id number] : 1955cct:[id number] Age/Sex: 69 / MADM Date: 12/18/24 Loc: CR Attending Dr: Judi Clark M.D. Ordering Physician: Judi Clark M.D. Date of Service: 12/18/24 Procedure(s): ITP Accession Number(s): [id number] cc: The [facility] Test Date: 2024-12-18 Pat Name: TAWANDA JURADO Department: Room: - Gender: Male Border Inspector: : 1955 Requested By: JUDI CLARK Order Number: [id number] Elizabeth MD: Raphael Justin Interpretive Statements Okay to proceed with outlined treatment plan. Electronically Signed On 12-18-2024 16:43:09 EDT by Raphael Justin Dictated By: Raphael Justin D.O. Signed By:12/18/24 1643 12/18/24 164 DD/ 144 TD/TT: Receiver Setter: Generic External Data Provider CLINISYNC IMAGING Final Result * (ABNORMAL) POCT Glycated hemoglobin, total (11/26/2024 9:38 AM EDT) Pathologist [facility] Hemoglobin A1C 8.2 Blood 11/26/2024 9:38 AM EDT Zoila Fountain NP POINT OF CARE TEST ENTER/GUTIERREZ T ORDERABLES Final Result * (ABNORMAL) ALL PRO BNP (11/22/2024 12:56 PM EDT) Pathologist [facility] NT PRO B TYPE NATRIURETIC PEPT 2,595.0(HH ) <=900.0 pg/mL [facility] Comment:RESULTS CALLED TO OLGUIN MA 11/22/2024 12:5 6 PM EDT 11/22/2024 1:04 PM EDT Narrative CLINISYNC - 11/22/2024 1:59 PM EDT Generic External Data Provider [facility]al [facility] * (ABNORMAL) ALL BASIC METABOLIC PANEL (11/22/2024 [...] 0.70 - 1.30 mg/dL TBH TBH EGFR-AF ALBANIAN 44(L) >=60 mL/min/1.7 3m 2 TBH TBH EGFR-NON AF ALBANIAN 36(L) >=60 mL/min/1.7 3m 2 TBH BUN CREATININE RATIO 14.1 TBH CALCIUM 8.5 8.5 - 10.1 mg/dL TBH 11/22/2024 12:5 6 PM EDT 11/22/2024 1:04 PM EDT Narrative CLINISYNC - 11/22/2024 1:59 PM EDT Generic External Data Provider [facility]NC F [facility]al [facility] * Microalbumin / creatinine urine ratio (11/09/2023 [...] Performing Organization Information Site ID: QPT Name: [facility] Address: [address] [place] [address], [address] [place] [address] Director: Isauro Norman MD Surya Hinton MD LAB URINE ORDERABLES Final Resul t [facility] * Colonoscopy (11/03/2023 9:39 AM EDT) Anatomical Region Laterality Modality Endoscopy us Davide Frias MD ENDOSCOPY PROCEDURE ORDERABL ES Final Result * (ABNORMAL) Cologuard?? colon cancer screening (08/20/2023 7:00 AM EST) NONINV COLON CA DNA+OCC BLD SCRN STL-IMP Positive( A) Negative 09/02/2023 2:11 AM EST [employer] (CLIA #:[id number]) Comment: POSITIVE TEST RESULT. A positive Cologuard [...] Stahl. et al, N Engl J Med 2014;370(14):7807-8227.) Cologuard may produce a false negative or false positive result (no colorectal cancer or precancerous polyp present at colonoscopy follow up). A negative Cologuard test result does not guarantee the absence of CRC or advanced adenoma (pre-cancer). The current Cologuard screening interval is every 3 years. ([place] Cancer Society and U.S. Multi-Society Task Force). Cologuard performance data in a 10,000 patient pivotal study using colonoscopy as the reference method can be accessed at the following location: www.[employer]/results. Additional description of the Cologuard test process, warnings and precautions can be found at www.cologuard.com. Stool specimen (specimen) Rectal contents / Unknown 08/20/2023 7:00 AM EST 08/23/2023 9:31 AM EST Surya Hinton MD LAB MOLECULAR DIAGNOSTICS ORDERA BLES Final Result .[employer] (CLIA #:[id number]) [address] [place] [address] [phone] [employer] (CLIA #:[id number]) [address] [place] [address] * Color Fundus Photography - OU - Both Eyes (09/17/2019 12:00 PM EST) Anatomical Region Laterality Modality Head Fundus Photograp hy 09/17/2019 12:0 0 PM EST Narrative 09/17/2019 12:00 PM EST PERFORMED AT [facility] LOCATION:[id number] [facility] Procedure Note CONVERSION, GENERIC - 11/30/2022 PERFORMED AT [facility] LOCATION:[id number] [facility] Marielena PIMENTEL OPHTH PHOTOGRAPHY Final Result from Last 3 Months or Most Recently Relevant to Health Maintenance Insurance UNITED [employer] MEDICARE [facility] MED RISK EPO Care Teams Classroom Monitor Relationship Specialty Start Date End Date Surya Hinton MD [address] [facility] 110 [place] [address] PCP - General Family Medicine 11/22/22
--- OUTSIDE RECORDS SUMMARY | 2025-02-13 07:16 | XMS_ITS | Encounter Summary ---
Author Organization [facility] Address [address] [facility] [place] [address] Care Team Providers Care Special Investigation Unit Investigator Name Role Phone Surya Hinton MD Unavailable Surya Hinton MD Primary Care Provider [phone] Zoila Fountain NP Unavailable [phone] Encounter Details Date Type Department Care Team (Late Contact Info) Description 11/06/2023 Abstract [facility] [place] Pederson [address] [facility] 110 [place] [address] Surya Hinton MD [address] [facility] 110 [place] [address] Social History Tobacco Use Types Packs/Day Years [...] Pederson [address] [facility] 110 [place] [address] Zoila Fountain RACK PUSHER [address] [facility] 110 [place] [address] documented as of this encounter Visit Diagnoses Not on filedocumented in this encounter Care Teams Special Investigation Unit Investigator Relationship Specialty Start Date End Date Surya Hinton MD [address] [facility] 110 [place] [address] PCP - Saul Commercial 10/15/20 Surya Hinton MD [address] [facility] 110 [place], [place] [address] PCP - General Family Medicine 11/22/22 Zoila Fountain, IBIS [address] [facility] 110 [place], [place] [address] PCP - Saul Commercial 03/17/24 documented as of this encounter
--- OUTSIDE RECORDS SUMMARY | 2025-02-13 07:16 | XMS_ITS | Encounter Summary ---
Author Organization [facility] Address [address] [facility] [place] [address] Care Team Providers Care Travelift Operator Name Role Phone Surya Hinton MD Unavailable Surya Hinton MD Primary Care Provider [phone] Zoila Fountain NP Unavailable [phone] Encounter Details Date Type Department Care Team (Late Contact Info) Description 11/15/2023 Abstract [facility] [place] Pederson [address] [facility] 110 [place] [address] Surya Hinton MD [address] [facility] 110 [place] [address] Social History Tobacco Use Types Packs/Day Years [...] Pederson [address] [facility] [address] [place] [address] Zoila Fountain SENIOR DESIGN ENGINEERING SPECIALIST [address] [facility] [address] [place] [address] documented as of this encounter Visit Diagnoses Not on filedocumented in this encounter Care Teams Travelift Operator Relationship Specialty Start Date End Date Surya Hinton MD [address] [facility] 110 [place] [address] PCP - Saul Commercial 10/15/20 Surya Hinton MD [address] [facility] 110 [place], [place] [address] PCP - General Family Medicine 11/22/22 Zoila Fountain, IBSI [address] [facility] 110 [place], [place] [address] PCP - Saul Commercial 03/17/24 documented as of this encounter
--- OUTSIDE RECORDS SUMMARY | 2025-02-13 07:16 | XMS_ITS | Encounter Summary ---
Author Organization [facility] Address [address] [facility] [place] [address] Care Team Providers Care Extrusion Bender Name Role Phone Surya Hinton MD Unavailable Surya Hinton MD Primary Care Provider [phone] Zoila Fountain NP Unavailable [phone] Encounter Details Date Type Department Care Team (Late Contact Info) Description 04/12/2023 Abstract [facility] [place] Pederson [address] [facility] 110 [place] [address] Surya Hinton MD [address] [facility] 110 [place] [address] Social History Tobacco Use Types Packs/Day Years [...] Pederson [address] [facility] [address] [place] [address] Zoila Fountain WRINGER OPERATOR [address] [facility] [address] [place] [address] documented as of this encounter Visit Diagnoses Not on filedocumented in this encounter Care Teams Extrusion Bender Relationship Specialty Start Date End Date Surya Hinton MD [address] [facility] 110 [place] [address] PCP - Saul Commercial 10/15/20 Surya Hinton MD [address] [facility] 110 [place], [place] [phone] PCP - General Family Medicine 11/22/22 Zoila Fountain, IBIS [address] [facility] 110 [place], [place] [address] PCP - Saul Commercial 03/17/24 documented as of this encounter
--- OUTSIDE RECORDS SUMMARY | 2025-02-13 07:16 | XMS_ITS | Encounter Summary ---
Author Organization [facility] Address [address] [facility] [place] [address] Care Team Providers Care Water Systems Designer Name Role Phone Surya Hinton MD Unavailable Surya Hinton MD Primary Care Provider [phone] Zoila Fountain NP Unavailable [phone] Encounter Details Date Type Department Care Team (Late Contact Info) Description 06/02/2023 Orders Only [facility] [place] Pederson [address] [facility] 110 [place] [address] A, Unknown Practice [address] [place], [place] [phone] Social History Tobacco Use Types Packs/Day Years [...] [place] Pederson [address] [facility] 110 [place] [address] Zoila Fountain, MOTION PICTURE PROJECTIONIST [address] [facility] 110 [place], [place] [address] documented as of this encounter Procedures Procedure [...] on filedocumented in this encounter Care Teams Water Systems Designer Relationship Specialty Start Date End Date Surya Hinton MD [address] [facility] 110 [place] [address] PCP - Jacumba Commercial 10/15/20 Surya Hinton MD [address] [facility] 110 [place] [address] PCP - General Family Medicine 11/22/22 Zoila Fountain MOTION PICTURE PROJECTIONIST [address] [facility] 110 [place] [address] PCP - Saul Commercial 03/17/24 documented as of this encounter
--- OUTSIDE RECORDS SUMMARY | 2025-02-13 07:16 | XMS_ITS | Encounter Summary ---
Author Organization [facility] Address [address] [facility] [place] [address] Care Team Providers Care Health Sciences Dean Name Role Phone Surya Hinton MD Unavailable Surya Hinton MD Primary Care Provider [phone] Zoila Fountain NP Unavailable [phone] Encounter Details Date Type Department Care Team (Late Contact Info) Description 03/15/2024 Abstract [facility] [place] Pederson [address] [facility] 110 [place] [address] Surya Hinton MD [address] [facility] 110 [place] [address] Social History Tobacco Use Types Packs/Day Years [...] Pederson [address] [facility] [address] [place] [address] Zoila Fountain HEALTH PLAN MANAGER [address] [facility] [address] [place] [address] documented as of this encounter Visit Diagnoses Not on filedocumented in this encounter Care Teams Health Sciences Dean Relationship Specialty Start Date End Date Surya Hinton MD [address] [facility] 110 [place] [address] PCP - Saul Commercial 10/15/20 Surya Hinton MD [address] [facility] 110 [place], [place] [phone] PCP - General Family Medicine 11/22/22 Zoila Fountain, IBIS [address] [facility] 110 [place], [place] [phone] PCP - Saul Commercial 03/17/24 documented as of this encounter
--- OUTSIDE RECORDS SUMMARY | 2025-02-13 07:16 | XMS_ITS | Encounter Summary ---
Author Organization [facility] Address [address] [place] [address] Care Team Providers Care Document Management Specialist Name Role Phone Surya Hinton MD Primary Care Provider [phone] Reason for Visit * Reason Comments Med Refill Encounter Details Date Type Department Care Team (Late st Contact Info) Description 03/15/2023 Refill [facility] [address] [place] [address] Judi Wilson MD [address] [facility] [place] [address] Benign hypertensive heart disease without [...] Description 04/03/2025 2:00 PM EDT Office Visit [facility] [address] [address] Reed Estrella MD [address] [place] [address] documented as of this encounter Visit Diagnoses Diagnosis Benign hypertensive heart disease without congestive heart failure Benign hypertensive heart disease without heart failure documented in this encounter Care Teams Document Management Specialist Relationship Specialty Start Date End Date Surya Hinton MD [address] [place] [address] PCP - General 05/18/22 documented as of this encounter
--- OUTSIDE RECORDS SUMMARY | 2025-02-13 07:16 | XMS_ITS | Encounter Summary ---
Author Organization [facility] Address [address] [facility] [place] [address] Care Team Providers Care Hazardous Waste Material Technician Name Role Phone Surya Hinton MD Unavailable Surya Hinton MD Primary Care Provider [phone] Zoila Fountain NP Unavailable [phone] Encounter Details Date Type Department Care Team (Late Contact Info) Description 03/15/2024 Abstract [facility] [place] Pederson [address] [facility] 110 [place] [address] Surya Hinton MD [address] [facility] 110 [place] [address] Social History Tobacco Use Types Packs/Day Years [...] Pederson [address] [facility] [address] [place] [address] Zoila Fountain HEMATOLOGY NURSE [address] [facility] [address] [place] [address] documented as of this encounter Visit Diagnoses Not on filedocumented in this encounter Care Teams Hazardous Waste Material Technician Relationship Specialty Start Date End Date Surya Hinton MD [address] [facility] 110 [place] [address] PCP - Saul Commercial 10/15/20 Surya Hinton MD [address] [facility] 110 [place], [place] [phone] PCP - General Family Medicine 11/22/22 Zoila Fountain, IBIS [address] [facility] 110 [place], [place] [phone] PCP - Saul Commercial 03/17/24 documented as of this encounter
--- OUTSIDE RECORDS SUMMARY | 2025-02-13 07:16 | XMS_ITS | Encounter Summary ---
Author Organization [facility] Address [address] [facility] [place] [address] Care Team Providers Care Rehabilitation Case Coordinator Name Role Phone Surya Hinton MD Primary Care Provider [phone] Encounter Details Date Type Department Care Team ([facility] Contact Info) Description 12/25/2024 Abstract [facility] [place] Pederson [address] [facility] 110 [place] [address] Surya Hinton MD [address] [facility] 110 [place] [address] Social History Tobacco Use Types Packs/Day Years [...] Office Visit [facility] [place] Carranzance [address] [facility] 110 [place] [address] Zoila Fountain NP [address] [facility] 110 [place] [address] documented as of this encounter Visit Diagnoses Not on filedocumented in this encounter Care Teams Rehabilitation Case Coordinator Relationship Specialty Start Date End Date Surya Hinton MD 112 [facility] 110 [place] [address] PCP - General Family Medicine 11/22/22 documented as of this encounter
--- OUTSIDE RECORDS SUMMARY | 2025-02-13 07:16 | XMS_ITS | Encounter Summary ---
Author Organization [facility] Address [address] [place] [address] Care Team Providers Care Economic Geographer Name Role Phone Surya Hinton MD Unavailable Surya Hinton MD Primary Care Provider [phone] Zoila Fountain NP Unavailable [phone] Encounter Details Date Type Department Care Team (Late st Contact Info) Description 11/03/2023 Orders Only [facility] [address] [phone] Davide Cobb MD [address] [facility] 150 [place] [address] Social History Tobacco Use Types [...] Corbett Medince [address] [place] [id number] Zoila Fountain, DRAIN TILER [address] [place] [address] documented as of this encounter Procedures Procedure Name Priority Date/Time Associated Diagnosis Comments COLONOSCOPY Routine 11/03/2023 9:39 AM EDT documented in this encounter Results * Colonoscopy (11/03/2023 9:39 AM EDT) Anatomical Region Laterality Modality Endoscopy Davide Frias MD ENDOSCOPY PROCEDURE ORDERABL ES Final Result documented in this encounter Visit Diagnoses Not on filedocumented in this encounter Care Teams Economic Geographer Relationship Specialty Start Date End Date Surya Hinton MD 112 [facility] 110 [place] [address] PCP - [place] [employer] 10/15/20 Surya Hinton MD 112 [facility] 110 [place] [address] PCP - General Family Medicine 11/22/22 Zoila Fountain DRAIN TILER 112 [facility] 110 [place] [address] PCP - [place] [employer] 03/17/24 documented as of this encounter
--- OUTSIDE RECORDS SUMMARY | 2025-02-13 07:16 | XMS_ITS | Encounter Summary ---
Author Organization [facility] Address [address] [facility] [place] [address] Care Team Providers Care Illuminating Engineer Name Role Phone Surya Hinton MD Primary Care Provider [phone] Zoila Fountain BODY PRESS OPERATOR Unavailable [phone] Encounter Details Date Type Department Care Team ([facility] Contact Info) Description 09/13/2024 Abstract [facility] [address] [facility] 110 [place] [address] Surya Hinotn MD [address] [place] [facility] 110 [place] [address] Social History Tobacco Use Types Packs/Day Years [...] Upcoming Encounters Date Type Department Care Team ([facility] Contact Info) Description 02/26/2025 11:30 AM EDT Office Visit [facility] Gu[facility] [address] [facility] 110 [place] [address] Zoila Fountain NP [address] [place] [facility] 110 [place] [address] documented as of this encounter Visit Diagnoses Not on filedocumented in this encounter Care Teams Illuminating Engineer Relationship Specialty Start Date End Date Surya Hinton MD 112 [facility] 110 [place] [address] PCP - General Family Medicine 11/22/22 Zoila Fountain BODY PRESS OPERATOR 112 [facility] 110 [place] [address] PCP - [place] [employer] 03/17/24 documented as of this encounter
--- OUTSIDE RECORDS SUMMARY | 2025-02-13 07:16 | XMS_ITS | Encounter Summary ---
Author Organization [facility] Address [address] [facility] [place] [address] Care Team Providers Care Physics Technical Officer Name Role Phone Surya Hinton MD Unavailable Surya Hinton MD Primary Care Provider [phone] Zoila Fountain NP Unavailable [phone] Encounter Details Date Type Department Care Team (Late Contact Info) Description 04/19/2023 Abstract [facility] [place] Pederson [address] [facility] 110 [place] [address] Surya Hinton MD [address] [place] 110 [place] [address] Social History Tobacco Use Types Packs/Day Years [...] Pederson [address] [place] [address] Zoila Fountain SUPPLIER QUALITY SPECIALIST [address] [place] [address] documented as of this encounter Visit Diagnoses Not on filedocumented in this encounter Care Teams Physics Technical Officer Relationship Specialty Start Date End Date Surya Hinton MD [address] 110 [place] [address] PCP - [place] [employer] 10/15/20 Surya Hinton MD [address] [place] 110 [place], [place] [address] PCP - General Family Medicine 11/22/22 Zoila Fountain, IBIS [address] [place] 110 [place], [place] [address] PCP - [place] [employer] 03/17/24 documented as of this encounter
--- OUTSIDE RECORDS SUMMARY | 2025-02-13 07:16 | XMS_ITS | Encounter Summary ---
Author Organization [facility] Address [address] [place] [address] Care Team Providers Care Dag Coater Name Role Phone Surya Hinton MD Unavailable Surya Hinton MD Primary Care Provider [phone] Zoila Fountain NP Unavailable [phone] Encounter Details Date Type Department Care Team (Late Contact Info) Description 11/21/2023 Abstract [facility] [place] Pederson [address] [facility] 110 [place] [address] Surya Hinton MD [address] [facility] 110 [place] [address] Social History Tobacco Use Types Packs/Day Years [...] [address] NBA [address] [place] [address] Zoila Fountain BULLDOZER MECHANIC [address] [place] [address] documented as of this encounter Visit Diagnoses Not on filedocumented in this encounter Care Teams Dag Coater Relationship Specialty Start Date End Date Surya Hinton MD [address] [facility] 110 [place] [address] PCP - [place] [employer] 10/15/20 Surya Hinton MD [address] [facility] 110 [place], [place] [id number] PCP - General Family Medicine 11/22/22 Zoila Fountain, IBIS [address] [facility] 110 [place], [place] [address] PCP - [place] [employer] 03/17/24 documented as of this encounter
--- OUTSIDE RECORDS SUMMARY | 2025-02-13 07:16 | XMS_ITS | Encounter Summary ---
Author Organization [facility] Address [address] [facility] [place] [address] Care Team Providers Care Paperhanger And Painter Name Role Phone Surya Hinton MD Unavailable Surya Hinton MD Primary Care Provider [phone] Zoila Fountain NP Unavailable [phone] Encounter Details Date Type Department Care Team (Late Contact Info) Description 12/04/2023 Abstract [facility] [place] Pederson [address] [facility] 110 [place] [address] Surya Hinton MD [address] [facility] 110 [place] [address] Social History Tobacco Use Types Packs/Day Years [...] [address] [place] [address] Zoila Fountain MACHINIST WOOD [address] [place] [address] documented as of this encounter Visit Diagnoses Not on filedocumented in this encounter Care Teams Paperhanger And Painter Relationship Specialty Start Date End Date Surya Hinton MD [address] [facility] 110 [place] [address] PCP - [place] [employer] 10/15/20 Surya Hinton MD [address] [facility] 110 [place], [place] [address] PCP - General Family Medicine 11/22/22 Zoila Fountain, IBIS [address] [facility] 110 [place], [place] [address] PCP - [place] [employer] 03/17/24 documented as of this encounter
--- OUTSIDE RECORDS SUMMARY | 2025-02-13 07:16 | XMS_ITS | Encounter Summary ---
Author Organization [facility] Address [address] [facility] [place] [address] Care Team Providers Care Thermodynamicist Name Role Phone Surya Hinton MD Unavailable Surya Hinton MD Primary Care Provider [phone] Zoila Fountain NP Unavailable [phone] Encounter Details Date Type Department Care Team (Late Contact Info) Description 11/28/2023 Abstract [facility] [place] Pederson [address] [facility] 110 [place] [address] Surya Hinton MD [address] [facility] 110 [place] [address] Social History Tobacco Use Types Packs/Day Years [...] [address] [place] [address] Zoila Fountain MIXER OPERATOR HOT METAL [address] [place] [address] documented as of this encounter Visit Diagnoses Not on filedocumented in this encounter Care Teams Thermodynamicist Relationship Specialty Start Date End Date Surya Hinton MD [address] [facility] 110 [place] [address] PCP - [place] [employer] 10/15/20 Surya Hinton MD [address] [facility] 110 [place], [place] [address] PCP - General Family Medicine 11/22/22 Zoila Fountain, IBIS [address] [facility] 110 [place], [place] [address] PCP - [place] [employer] 03/17/24 documented as of this encounter
--- OUTSIDE RECORDS SUMMARY | 2025-02-13 07:16 | XMS_ITS | Clinical Summary ---
Author Organization [facility] Address [address] [place] [address] Phone Care Team Providers Care Office Services Coordinator Name Role Phone Surya Hinton MD Primary Care Provider [phone] Social History Tobacco Use Types Packs/Day Years [...] of Treatment Not on file Care Teams Office Services Coordinator Relationship Specialty Start Date End Date Surya Hinton MD [address] [place] [address] PCP - General 05/28/21
--- OUTSIDE RECORDS SUMMARY | 2025-02-13 07:16 | XMS_ITS | Encounter Summary ---
Author Organization [facility] Address [address] [facility] [place] [address] Care Team Providers Care Ginning Operator Name Role Phone Surya Hinton MD Unavailable Surya Hinton MD Primary Care Provider [phone] Zoila Fountain NP Unavailable [phone] Encounter Details Date Type Department Care Team (Late Contact Info) Description 11/23/2023 Abstract [facility] [place] Pederson [address] [facility] 110 [place] [address] Surya Hinton MD [address] [facility] 110 [place] [address] Social History Tobacco Use Types Packs/Day Years [...] Pederson [address] [place] [address] Zoila Fountain AGENCY CASHIER [address] [place] [address] documented as of this encounter Visit Diagnoses Not on filedocumented in this encounter Care Teams Ginning Operator Relationship Specialty Start Date End Date Surya Hinton MD [address] [facility] 110 [place] [address] PCP - [place] [employer] 10/15/20 Surya Hinton MD [address] [facility] 110 [place], [place] [address] PCP - General Family Medicine 11/22/22 Zoila Fountain, IBIS [address] [facility] 110 [place], [place] [address] PCP - [place] Commercial 03/17/24 documented as of this encounter
--- OUTSIDE RECORDS SUMMARY | 2025-02-13 07:16 | XMS_ITS | Encounter Summary ---
Author Organization [facility] Address [address] [facility] [place] [address] Care Team Providers Care Audio Specialist Name Role Phone Surya Hinton MD Primary Care Provider [phone] Zoila Fountain SENIOR QC TECHNICIAN Unavailable [phone] Encounter Details Date Type Department Care Team ([facility] Contact Info) Description 09/13/2024 Abstract [facility] Saran Guerra [address] [facility] 110 [place] [address] Surya Hinton MD 112 [facility] 110 [place] [address] Social History Tobacco Use Types Packs/Day Years [...] Upcoming Encounters Date Type Department Care Team ([facility] Contact Info) Description 02/26/2025 11:30 AM EDT Office Visit [facility] Guerra [address] [facility] 110 [place] [address] Zoila Fountain NP 112 [facility] 110 [place] [address] documented as of this encounter Visit Diagnoses Not on filedocumented in this encounter Care Teams Audio Specialist Relationship Specialty Start Date End Date Surya Hinton MD 112 [facility] 110 [place] [address] PCP - General Family Medicine 11/22/22 Zoila Fountain SENIOR QC TECHNICIAN 112 [facility] 110 [place] [address] PCP - [place] Commercial 03/17/24 documented as of this encounter
--- OUTSIDE RECORDS SUMMARY | 2025-02-13 07:16 | XMS_ITS | Encounter Summary ---
Author Organization [facility] Address [address] [facility] [place] [address] Care Team Providers Care Licensing Analyst Name Role Phone Surya Mast MD Unavailable Surya Mast MD Primary Care Provider [phone] Zoila Fountain NP Unavailable [phone] Encounter Details Date Type Department Care Team [...] Corbett Medince [address] 110 [place] [address] Zoila Fountain EXPRESSIVE THERAPIST [address] 110 [place] [address] documented as of this encounter Procedures Procedure Name Priority Date/Time Associated Diagnosis Comments VASC US CAROTID ARTERY DUPLEX BILATERAL 06/01/2023 3:24 PM EST documented in this encounter Results * Vascular US carotid artery duplex bilateral (06/01/2023 3:24 PM EST) Anatomical Region Laterality Modality Neck Ultrasound 06/01/2023 3:24 PM EST Narrative 06/01/2023 3:24 PM EST [address] [address] Ultrasound Report Signed Patient: LISA JURADO MR#: [id number] : 1955 Acct:[id number] Age/Sex: 68 / M ADM Date: 06/01/23 Loc: CARD Attending Dr: EDISON HOPPER APRN Ordering Physician: EDISON HOPPER APRN Date of Service: 06/01/23 Procedure(s): US carotid duplex BI Accession Number(s): [id number] cc: SURYA MAST ; EDISON HOPPER APRN [address] [address] Patient Name: LISA JURADO MRN: [id number] date: 1955 Sex: M Assigned Patient Location: CARD Current Patient Location: CARD Accession/Order Number: [id number] Exam Date: 06/01/2023 10:00 Report Date: 06/01/2023 [...] Signed By: 06/01/23 1526 DD/ 1524 TD/TT: Hog Tender: Procedure Note Radiology, Radiologist, MD - 06/01/2023 [place] [address] Ultrasound Report Signed Patient: LISA JURADO LMR#: [id number] : 1955cct:[id number] Age/Sex: 68 / MADM Date: 06/01/23 Loc: CARD Attending Dr: EDISON HOPPER APRN Ordering Physician: EDISON HOPPER APRN Date of Service: 06/01/23 Procedure(s): US carotid duplex BI Accession Number(s): [id number] cc: SURYA MAST ; EDISON HOPPER APRN [place] [address] Patient Name: LISA JURADO MRN: [facility]:[id number] date: 1955 Sex: M Assigned Patient Location: CARD Current Patient Location: CARD Accession/Order Number: [id number] Exam Date: 06/01/2023 10:00 Report Date: 06/01/2023 [...] US Thresholds (Reference: Mono EG, et al. [id number]; 214:247-252) Stenosis (%) PSV (cm/sec) VICA/VCCA 0-49 <150 <2.5 50-69 150-225 2.5-4.0 >70 >225 >4.0 Electronically authenticated by: IFEANYI FREY Date: 06/01/2023 15:24 Dictated By: Ifeanyi Frey M.D. Signed By:06/01/23 1526 DD/ 1524 TD/TT: Hog Tender: us Generic External Data Provider IMG US PROCEDURES Final Result documented in this encounter Visit Diagnoses Not on filedocumented in this encounter Care Teams Licensing Analyst Relationship Specialty Start Date End Date Surya Mast MD [address] [address] PCP - [place] Commercial 10/15/20 Surya Mast MD [address] [address] PCP - General Family Medicine 11/22/22 Zoila Fountain NP [address] [facility] 110 [place] [address] PCP - [place] Commercial 03/17/24 documented as of this encounter
--- OUTSIDE RECORDS SUMMARY | 2025-02-13 07:16 | XMS_ITS | Encounter Summary ---
Author Organization [facility] Address [address] [facility] [place] [address] Care Team Providers Care Motor Builder Winder Name Role Phone Surya Hinton MD Unavailable Surya Hinton MD Primary Care Provider [phone] Zoila Fountain NP Unavailable [phone] Encounter Details Date Type Department Care Team (Late Contact Info) Description 01/30/2024 Abstract [facility] [place] Pederson [address] [facility] 110 [place] [address] Surya Hinton MD [address] [facility] 110 [place] [address] Social History Tobacco Use Types Packs/Day Years [...] Pederson [address] [place] [address] Zoila Fountain MEDICAL SCIENTIFIC OFFICER [address] [place] [address] documented as of this encounter Visit Diagnoses Not on filedocumented in this encounter Care Teams Motor Builder Winder Relationship Specialty Start Date End Date Surya Hinton MD [address] [facility] 110 [place] [address] PCP - [place] [employer] 10/15/20 Surya Hinton MD [address] [facility] 110 [place], [place] [address] PCP - General Family Medicine 11/22/22 Zoila Fountain, IBIS [address] [facility] 110 [place], [place] [address] PCP - [place] Commercial 03/17/24 documented as of this encounter
--- OUTSIDE RECORDS SUMMARY | 2025-02-13 07:16 | XMS_ITS | Encounter Summary ---
Author Organization [facility] Address [address] [facility] [place] [address] Care Team Providers Care Battery Wrecker Operator Name Role Phone Surya Hinton MD Primary Care Provider Encounter Details Date Type Department Care Team ([facility] Contact Info) Description 11/07/2024 Abstract [facility] [place] Terence [address] [facility] 110 [place] [address] Surya Hinton MD [address] [place] [address] Social History Tobacco Use Types Packs/Day Years [...] Upcoming Encounters Date Type Department Care Team ([facility] Contact Info) Description 02/26/2025 11:30 AM EDT [facility] [place] [facility] [address] [place] [address] Zoila Fountain NP [address] [place] [address] documented as of this encounter Visit Diagnoses Not on filedocumented in this encounter Care Teams Battery Wrecker Operator Relationship Specialty Start Date End Date Surya Hinton MD [address] [place] [address] PCP - General Family Medicine 11/22/22 documented as of this encounter
--- OUTSIDE RECORDS SUMMARY | 2025-02-13 07:16 | XMS_ITS | Encounter Summary ---
Author Organization [facility] Address [address] [place] [address] Care Team Providers Care Gatehouse Attendant Name Role Phone Surya Hinton MD Primary Care Provider Encounter Details Date Type Department Care Team (Late st Contact Info) Description 02/11/2025 Telephone [facility] [address] [place] [address] Codie Reynoso MA Social History Tobacco Use Types Packs/Day Years [...] AM EDT documented as of this encounter Miscellaneous Notes * Telephone Encounter - Codie Reynoso MA - 02/11/2025 10:47 AM EDT Patient stopped by to report very erratic (but mostly very elevated) BP readings. Cardiac rehab reports very elevated readings for him as well. They don't let him exercise very often because of this.I did confirm his medications: Carvedilol 25mg bid Clonidine 0.3mg bid Furosemide 40mg daily Lisinopril 40mg daily Terazosin 6mg at bedtime Isosorbide 120mg daily This morning before medications his BP was 179/129. He checked it 1 hour later and it came down to 157/119. He came to rehab 45 minutes later and it was 169/117 upon arrival. He was not permitted to exercise today. Some other readings from his BP machine were: 205/123 202/113 207/127 171/107 128/69 151/90 148/98 Any recommendations? He is scheduled 02/13 for echo at [facility]. documented in this encounter Plan of Treatment Upcoming Encounters Date Type Department Care Team (Late st Contact Info) Description 04/03/2025 2:00 PM EDT Office Visit [facility] Cardiology [address] [place] [address] Reed Estrella MD [address] [place] [address] documented as of this encounter Visit Diagnoses Not on filedocumented in this encounter Care Teams Gatehouse Attendant Relationship Specialty Start Date End Date Surya Hinton MD [address] [place] [address] PCP - General 05/18/22 documented as of this encounter
--- OUTSIDE RECORDS SUMMARY | 2025-02-13 07:16 | XMS_ITS | Encounter Summary ---
Author Organization [facility] Address [address] [facility] [place] [address] Care Team Providers Care Forestry Faculty Member Name Role Phone Surya Hinton MD Primary Care Provider [phone] Encounter Details Date Type Department Care Team [...] Upcoming Encounters Date Type Department Care Team ([facility] Contact Info) Description 02/26/2025 11:30 AM EDT Office Visit [facility] [place] Pederson [address] [facility] [address] [place] [address] Zoila Fountain NP [address] [place] [address] documented as of this encounter Procedures Procedure Name Priority Date/Time Associated Diagnosis Comments TBH URINE T PROTEIN CREAT RATIO Routine 02/07/2025 7:58 AM EDT ALL URINALYSIS Routine 02/07/2025 7:58 AM EDT TSH W/REFLEX T4 Routine 02/07/2025 6:55 AM EDT UH RENIN,PLASMA Routine 02/07/2025 6:55 AM EDT TBH VITAMIN [...] AM EDT us Generic External Data Provider LEIGH ANN knapp Result CLINBREANN [facility] * (ABNORMAL) ALL URINALYSIS (02/07/2025 7:58 AM [...] CLINISYNC F inal Result Performing Organization Address [facility] Co de Phone Number CLINISYNC [facility] * (ABNORMAL) UH RENIN,PLASMA (02/07/2025 6:55 AM EDT) RENIN ACTIVITY, PLASMA <0.167(A) 0.167 - 5.380 ng/mL/hr TB Comment: This test was developed and its performance characteristics determined by [employer]. It has not been cleared or approved by the Food and Drug Administration. Performed at: [address] [id number] Tire Worker: Paige Laura MD, Phone: [phone] 02/07/2025 6:55 AM EDT 02/07/2025 6:57 AM EDT Narrative CLINISYNC - 02/11/2025 11:08 AM EDT Generic External Data Provider CLINISYNC F inal Result Performing Organization Address City/[facility]/ZIP Co de Phone Number CLINISYNC [facility] * (ABNORMAL) HMHP PTH, INTRAOPERATIVE (02/07/2025 6:55 AM EDT) PTH, INTACT 101(A) 15 - 65 pg/mL TB Comment: Performed at: [address] [id number] Tire Worker: Dionicio Clements PhD, Phone: [phone] 02/07/2025 6:55 AM EDT 02/07/2025 6:57 AM EDT Narrative CLINISYNC - 02/09/2025 11:07 AM EDT us Generic External Data Provider CLINISYNC F inal Result Performing Organization Address [facility]/ZIP Co de Phone Number CLINQUYNHNC [facility] * HMHP CORTISOL (02/07/2025 6:55 AM EDT) Pathologist [facility] CORTISOL 18.5 6.2 - 19.4 ug/dL [facility] Comment: Please Note: The reference interval and flagging for this test is for an AM collection. If this is a PM collection please use: Cortisol PM: 2.3-11.9 Performed at: [address] [id number] Tire Worker: Dionicio Clements PhD, Phone: [phone] 02/07/2025 6:55 AM EDT 02/07/2025 6:57 AM EDT Narrative CLINISYNC - 02/08/2025 8:08 AM EDT Generic External Data Provider CLINISYNC F inal Result Performing Organization Address [facility] de Phone Number LEIGH ANN [facility] * TB VITAMIN D 25 [place] (02/07/2025 6:55 AM EDT) [facility] VITAMIN D 26.1 ng/mL [facility] Comment: <20 ng/mL Vit D deficient 20-<30 ng/mL Vit D insufficient 30-100 ng/mL Vit D sufficient >100 ng/mL Potential Toxicity 02/07/2025 6:55 AM EDT 02/07/2025 6:57 AM EDT Narrative CLINISYNC - 02/07/2025 12:31 PM EDT Generic External Data Provider CLINISYNC F inal Result Performing Organization Address City/[facility]/ZIP Co de Phone Number CLINISYNC [facility] * TSH W/REFLEX T4 (02/07/2025 6:55 AM EDT) TSH 3.474 0.358 - 3.740 uIU/mL TBH 02/07/2025 6:55 AM EDT 02/07/2025 6:57 AM EDT Narrative CLINISYNC - 02/07/2025 11:29 AM EDT Generic External Data Provider LAB BLOOD ORDERAB LES Final Result Performing Organization Address [facility]/ZIP Co de Phone Number [facility] * ALL MAGNESIUM (02/07/2025 6:55 AM EDT) Pathologist [facility] MAGNESIUM 2.0 1.8 - 2.4 mg/dL TBH 02/07/2025 6:55 AM EDT 02/07/2025 6:57 AM EDT Narrative CLINISYNC - 02/07/2025 11:29 AM EDT Generic External Data Provider CLINISYNC F inal Result Performing Organization Address [facility] de Phone Number [facility] * ALL URIC ACID (02/07/2025 6:55 AM EDT) Pathologist [facility] URIC ACID 7.0 3.5 - 7.2 mg/dL TBH 02/07/2025 6:55 AM EDT 02/07/2025 6:57 AM EDT Narrative CLINISYNC - 02/07/2025 11:29 AM EDT Generic External Data Provider CLINISYNC F inal Result Performing Organization Address City/[facility] Co de Phone Number [facility] * (ABNORMAL) ALL RENAL FUNCTION PANEL (02/07/2025 6:55 AM EDT) Pathologist [facility] SODIUM 143 136 - 145 mmol/L TBH POTASSIUM 4.5 3.5 - 5.1 mmol/L TBH CHLORIDE 107 98 - 107 mmol/L TBH CARBON DIOXIDE 27.1 21.0 - 32.0 mmol/L TBH ANION GAP 13.4 TBH GLUCOSE 134(H) 74 - 106 mg/dL TBH BLOOD UREA NITROGEN 27.0(H) 7.0 - 18.0 mg/dL TBH CREATININE 2.05(H) 0.70 - 1.30 mg/dL TBH TBH EGFR-AF [place]ER 39(L) >=60 mL/min/1.7 3m 2 TBH TBH EGFR-NON AF [place] 32(L) >=60 mL/min/1.7 3m 2 TBH BUN CREATININE RATIO 13.2 TBH CALCIUM 8.4(L) 8.5 - 10.1 mg/dL TBH PHOSPHORUS 4.0 2.6 - 4.7 mg/dL TBH ALBUMIN LEVEL 3.2(L) 3.4 - 5.0 g/dL TBH 02/07/2025 6:55 AM EDT 02/07/2025 6:57 AM EDT Narrative CLINISYNC - 02/07/2025 11:29 AM EDT Generic External Data Provider CLINISYNC F inal Result [facility] * (ABNORMAL) [facility] CBC WITH PLATELET NO DIFFERENTIAL (02/07/2025 6:55 AM EDT) TB WBC 6.3 4.0 - 11.0 10 3/uL [...] Narrative CLINISYNC - 02/07/2025 7:14 AM EDT us Generic External Data Provider CLINISYNC F inal Result CLINISYNC [facility] documented in this encounter Visit Diagnoses Not on filedocumented in this encounter Care Teams Forestry Faculty Member Relationship Specialty Start Date End Date Surya Hinton MD [address] [place] [address] PCP - General Family Medicine 11/22/22 documented as of this encounter
--- OUTSIDE RECORDS SUMMARY | 2025-02-13 07:17 | XMS_ITS | Encounter Summary ---
Author Organization [facility] Address [address] [facility] [place] [address] Care Team Providers Care Transportation Security Officer Name Role Phone Surya Hinton MD Unavailable Surya Hinton MD Primary Care Provider [phone] Zoila Fountain NP Unavailable [phone] Encounter Details Date Type Department Care Team [...] Corbett Medince [address] [place] [place] [address] Zoila Fountain LAN/WAN ENGINEER [address] [facility] 110 [place], [place] [id number] documented as of this encounter Procedures Procedure Name Priority Date/Time Associated Diagnosis Comments CA ECHO DOPPLER COMPLETE 06/02/2023 2:39 PM EST documented in this encounter Results * CA ECHO DOPPLER COMPLETE (06/02/2023 2:39 PM EST) Anatomical Region Laterality Modality Other 06/02/2023 2:39 PM EST Narrative 06/02/2023 2:39 PM EST [address] [address] Cardiology Report Signed Patient: LISA JURADO MR#: [id number] : 1955 Acct:[id number] Age/Sex: 68 / M ADM Date: 06/01/23 Loc: CARD Attending Dr: EDISON HOPPER APRN Ordering Physician: EDISON HOPPER APRN Date of Service: 06/01/23 Procedure(s): CA echo doppler complete Accession Number(s): [id number] cc: Patient Name: LISA JURADO MR#: [id number] : 1955 Exam Date: 06/01/2023 Ordering Doctor: EDISON HOPPER GOVERNMENT SERVICES PROFESSIONAL ECHOCARDIOGRAM REPORT PROCEDURE: CARDIO PULMONARY ECHOCARDIO M/2D COMP INDICATIONS: Syncope and collapse, coronary artery disease, CABGx6, [place], hypertension, diabetes COMPARISON: None. DESCRIPTION: COMPLETE ECHOCARDIOGRAM [...] Signed By: 06/02/23 1440 DD/ 1439 TD/TT: Flyer Maker: Procedure Note Radiology, Radiologist, MD - 06/02/2023 [place] [address] Cardiology Report Signed Patient: LISA JURADO LMR#: [id number] : 1955cct:[id number] Age/Sex: 68 / MADM Date: 06/01/23 Loc: CARD Attending Dr: EDISON HOPPER APRN Ordering Physician: EDISON HOPPER APRN Date of Service: 06/01/23 Procedure(s): CA echo doppler complete Accession Number(s): [id number] cc: Patient Name: LISA JURADO MR#: [id number] : 1955 Exam Date: 06/01/2023 Ordering Doctor: EDISON HOPPER GOVERNMENT SERVICES PROFESSIONAL ECHOCARDIOGRAM REPORT PROCEDURE: CARDIO PULMONARY ECHOCARDIO M/2D COMP INDICATIONS: Syncope and collapse, coronary artery disease, CABGx6,[place], hypertension, diabetes COMPARISON: None. DESCRIPTION: COMPLETE ECHOCARDIOGRAM [...] M.D. Signed By:06/02/23 1440 DD/ 1439 TD/TT: Flyer Maker: Generic External Data Provider CLINISYNC IMAG[facility] Final Result documented in this encounter Visit Diagnoses Not on filedocumented in this encounter Care Teams Transportation Security Officer Relationship Specialty Start Date End Date Surya Hinton MD [address] [place] [address] PCP - [place] [employer] 10/15/20 Surya Hinton MD [address] [facility] 110 [place] [address] PCP - General Family Medicine 11/22/22 Zoila Fountain NP [address] [facility] [address] [place] [address] PCP - [place] [employer] 03/17/24 documented as of this encounter
--- OUTSIDE RECORDS SUMMARY | 2025-02-13 07:17 | XMS_ITS | Encounter Summary ---
Author Organization [facility] Address [address] [facility] [place] [address] Care Team Providers Care Battalion Fire Chief Name Role Phone Surya Hinton MD Unavailable Surya Hinton MD Primary Care Provider [phone] Zoila Fountain NP Unavailable [phone] Encounter Details Date Type Department Care Team (Late Contact Info) Description 07/05/2023 Abstract [facility] [place] Pederson [address] [facility] 110 [place] [phone] Surya Hinton MD [address] [facility] 110 [place] [address] Social History Tobacco Use Types Packs/Day Years [...] Pederson [address] [employer] 110 [place] [address] [address] MIX[address] PL[address] SUPERVISOR [address] [place] [address] documented as of this encounter Visit Diagnoses Not on filedocumented in this encounter Care Teams Battalion Fire Chief Relationship Specialty Start Date End Date Surya Hinton MD [address] [facility] 110 [place] [address] PCP - [place] [employer] 10/15/20 Surya Hinton MD [address] [facility] [address] [place], [place] [address] PCP - General Family Medicine 11/22/22 Zoila Fountain, IBIS [address] [facility] 110 [place], [place] [address] PCP - [place] [employer] 03/17/24 documented as of this encounter
--- OUTSIDE RECORDS SUMMARY | 2025-02-13 07:17 | XMS_ITS | Encounter Summary ---
Author Organization [facility] Address [address] [facility] [place] [address] Care Team Providers Care Kier Pleater Name Role Phone Surya Hinton MD Primary Care Provider [phone] Zoila Fountain BATHHOUSE ATTENDANT Unavailable [phone] Encounter Details Date Type Department Care Team ([facility] Contact Info) Description 08/20/2024 Abstract [facility] [place] Guerra [address] [facility] 110 [place] [phone] Surya Hinton MD [address] [facility] 110 [place] [address] Social History Tobacco Use Types Packs/Day Years [...] Upcoming Encounters Date Type Department Care Team ([facility] Contact Info) Description 02/26/2025 11:30 AM EDT Office Visit [facility] [place] Guerra [address] [facility] 110 [place] [phone] Zoila Fountain NP [address] [facility] 110 [place] [address] documented as of this encounter Visit Diagnoses Not on filedocumented in this encounter Care Teams Kier Pleater Relationship Specialty Start Date End Date Surya Hinton MD [address] [facility] 110 [place] [address] PCP - General Family Medicine 11/22/22 Zoila Fountain BATHHOUSE ATTENDANT [address] [facility] 110 [place] [address] PCP - [place] [employer] 03/17/24 documented as of this encounter
--- OUTSIDE RECORDS SUMMARY | 2025-02-13 07:17 | XMS_ITS | Clinical Summary ---
Author Organization [facility] Address [address] [address] Care Team Providers Care Lead Consultant Name Role Phone Surya Hinton MD Primary Care Provider Allergies No known active allergies Medications aspirin [...] 200 mg by mouth at bedtime. 4 Active terazosin (Hytrin) 2 mg capsuleIndicatio ns:Stage [...] type, unspecified whether angina present, unspecified whether wales or transplanted heart Take 1 tablet (10 mg) by mouth in the morning. 30 tablet 11 5 11/14/19 Active Additional Information Patient not taking.Reported on [...] esophag itis 06/08/2016 04/19/2023 Hyperlipidemia, unspecified 06/08/2016 100 10/2022 Muscle weakness (generalized) 06/08/2016 Non-ST elevation (NSTEMI) myocardial infarction 06/08/2016 04/19/2023 Encounters Date Type Department Care Team Description 02/11/[address] [address] Codie Reynoso [place] 01/06/2025 3:00 PM EDT Office Visit [facility] [address] [place] [address] Reed Estrella MD Persistent atrial fibrillation (CMS/HCC) (Primary Dx) 12/18/2024 Telephone [place] [address] [place] [address] Codie Reynoso MA 12/12/2024 1:45 PM EDT Follow-Up [place] [address] [place] [address] Judi Wilson MD Paroxysmal atrial fibrillation (CMS/HCC) 11/29/2024 10:35 AM EDT - 11/29/2024 11:35 AM EDT Surgery [facility] [address] [facility] [place] [address] Jose Menjivar MD Cardioversion 11/29/2024 8:55 AM EDT - 11/29/2024 11:46 AM EDT Hospital Encounter [facility] [address] [place] [address] [place] Bike Shop ManagerMD Atrial fibrillation, unspecified type (CMS/HCC) Discharge Disposition: Home or Self Care () 11/29/2024 8:54 AM EDT Hospital Encounter [facility] [address] [place] [address] Atrial fibrillation, unspecified type (CMS/HCC); Nonrheumatic mitral valve regurgitation Discharge Disposition: Home or Self Care () 11/29/2024 Travel 11/22/2024 Telephone [facility] [address] [place] [address] Anamaria Naik MA 11/22/2024 Travel 11/13/2024 1:30 PM EDT Office Visit [facility] [address] [place] [address] Nikko Roche CNP New onset atrial fibrillation (CMS/HCC) (Primary Dx); Atrial fibrillation, unspecified type (CMS/HCC); Acute heart failure with preserved ejection fraction (CMS/HCC); Bilateral lower extremity edema; BARRON (dyspnea on exertion); Resistant hypertension; PAC (premature atrial contraction); Irregularly irregular pulse rhythm; Coronary artery disease, unspecified vessel or lesion type, unspecified whether angina present, unspecified whether wales or transplanted heart; Nonrheumatic mitral valve regurgitation; [...] Recorded Patient Health Questionnaire-2 Score 0 08/17/2022 [place] Safety & [place] Answer Date Rec orded [...] Visit [facility] [address] [place] [address] Reed Estrella MD [address] [place] [address] Health Maintenance Due Date Last Done Comments CT Colonography 1955 Diabetes: Hemoglobin A1C 1955 FOBT 1955 Medicare Annual Wellness (AWV) 1955 Sigmoidoscopy 1955 Diabetes: Retinopathy Screening 1963 Depression Screening 1965 Pneumococcal Vaccine: 50+ Years (1 of 2 - PCV) 1972 Adult Tetanus 1975 Zoster Vaccines (1 of 2) 2003 Fall Risk Screening 2018 COVID-19 Vaccine (2023-2 5 season) 2024 11/11/2020, 10/21/2020, 10/21/2020 FIT [...] of2 resultswithin the time period is included. Ventricular Rate 62 BPM GE MUSE Atrial Rate 62 BPM GE MUSE SC Interval 168 ms GE MUSE QRS DURATION 92 ms GE MUSE QT Interval 476 ms GE MUSE QTC CALCULATION(BAZE TT) 483 ms GE MUSE P [place] 74 degrees GE MUSE R-[place] 21 degrees GE MUSE T Wave [place] -15 degrees GE MUSE 11/29/2024 10:5 4 [...] EDT Narrative 11/29/2024 11:00 PM EDT 1 [facility] Heart Station [address] [place] [address] [phone] (fax) Transesophageal Echocardiogram-[facility] Name: TAWANDA JURADO Study Date: 11/29/2024 10:13 AM B/P: 164 mmHg/122 mmHg HR: Date of : 1955 Location: [facility] Height: 70 in. Age: 69 year(s) Patient Room: Weight: 257 lb. Gender: Male Patient Status: OutPt BSA: 2.32 m2 Indication: Atrial Fibrillation, Pre-cardioversion, Mitral regurgitation Examination: CADEN (Transesophageal Echo / CFI), Limited Doppler Image Quality: Adequate Patient Consent: Informed, written consent was obtained for the procedure Examination: A CADEN was performed without complications Exam Location: A CADEN was performed in the [place] without complications Anesthesia Pharyngeal anesthesia with viscous [...] reviewed the examination Procedure Staff Reading Group: [facility] [employer] Equipment Operator: Vu Gomez ELA Ordering Physician: NIKKO ROCHE Procedure Note Jose Menjivar MD - 11/29/2024 1 [facility] Heart Station [address] [place] [address] [phone] (fax) Transesophageal Echocardiogram-[facility] Name: TAWANDA JURADO Study Date: 11/29/2024 10:13 AM B/P: 164 mmHg/122 mmHg HR: Date of : 1955 Location: [facility] Height: 70 in. Age: 69 year(s) Patient Room: Weight: 257 lb. Gender: Male Patient Status: OutPt BSA: 2.32 m2 Indication: Atrial Fibrillation, Pre-cardioversion, Mitral regurgitation Examination: CADEN (Transesophageal Echo / CFI), Limited Doppler Image Quality: Adequate Patient Consent: Informed, written consent was obtained for the procedure Examination: A CADEN was performed without complications Exam Location: A CADEN was performed in the [place] without complications Anesthesia Pharyngeal anesthesia with viscous [...] reviewed the examination Procedure Staff Reading Group: [facility] [employer] Equipment Operator: Vu Gomez RDCS Ordering Physician: NIKKO ROCHE Nikko Roche [facility] CV ECHO PROCEDURES Final Result * CARDIOVERSION (11/29/2024 10:54 AM EDT) Anatomical Region Laterality Modality Other Narrative 12/02/2024 10:50 AM EDT Indication: Atrial Fibrillation. Performing physician: Jose Menjivar MD Front Desk Agent: None. Procedure: DC cardioversion. Informed consent was obtained from the patient. The patient was brought to the clinical laboratory scientist and conscious sedation was given with versed [...] follow up in clinic for further management. Jsoe Menjivar MD Study Details Persistent atrial fibrillation (CMS/[facility]) [I48.19] Nikko Roche [facility] CV ELECTROPHYSIOLOGY PROCEDURES Final Result from Last 3 Months Insurance [employer] MEDICARE Care Teams Lead Consultant Relationship Specialty Start Date End Date Surya Hinton MD [address] [facility] PCP - General 05/18/22
--- OUTSIDE RECORDS SUMMARY | 2025-02-13 07:17 | XMS_ITS | Clinical Summary ---
Author Organization [facility] Address [id number] [place] [address] Care Team Providers Care Marketing Project Lead Name Role Phone Unavailable Primary Care Provider [...]
--- OUTSIDE RECORDS SUMMARY | 2025-02-13 07:18 | XMS_ITS | CCD ---
Author Organization [facility] CliniSyfl Care Team Providers Care Joss House Keeper Name Role Phone PHYSICIAN, DEFAULT Unavailable Unavailable [...] Unavailable Spencer Mast MD Primary Care Provider [phone] MD Spencer Mast Primary Care Provider [phone] MD Jagdeep Stiles II Attending Provider MD Spencer Mast Primary Care Provider MD Jagdeep Stiles II Attending Provider MD Davide Cobb Attending Provider Zoila Mosqueda NP Unavailable [phone] Pro MEDEL Spencer Jo Primary Care Provider Bennett Leidy DE LA FUENTE Attending Provider [phone] ProSpencer Primary Care Unavailable Jagdeep Stiles II [...] Admitting Unavailable Davide Cobb Attending Unavailable OZIEL ARELLANO Attending Unavailable BENNETT, LEIDY Referring Unavailable BLACKSTONOZIEL Attending Unavailable BENNETT, LEIDY Referring Unavailable JETHRO WARE Attending Unavailable BENNETT, LEDIY Referring Unavailable OZIEL ARELLANO Attending Unavailable BENNETT, LEIDY Referring Unavailable GROVERTONOZIEL Attending Unavailable BENNETT, LEIDY Referring Unavailable BLACKSTONOZIEL Attending Unavailable BENENTT, LEIDY Referring Unavailable PANDA, ZOILA M Attending Unavailable PANDA, ZOILA M Attending Unavailable PANDA, ZOILA M Attending Unavailable PANDA, ZOILA M Attending Unavailable PANDA, ZOILA M Attending Unavailable PANDA, ZOILA M Attending Unavailable PANDA, ZOILA M Attending Unavailable PANDA, ZOILA M Attending Unavailable PANDA, ZOILA M Attending Unavailable PANDA, ZOILA M Attending Unavailable OZIEL ARELLANO T Attending Unavailable BENNETT, LEIDY Referring Unavailable JETHRO WARE Attending Unavailable BENNETT, LEIDY Referring Unavailable LEIDY JACOME Attending Unavailable BENNETT, LEIDY Referring Unavailable DARRYL MONCADA Attending Unavailable LEIDY BENNETT Referring Unavailable DARRYL MONCADA Attending Unavailable LEIDY BENNETT Referring Unavailable ZOILA MOSQUEDA Attending Unavailable NIKKO ROCHE Attending Unavailable NIKKO ROCHE Attending Unavailable EDUARDO EH Attending Unavailable REBEKAH, CASTINGS TRIMMER Referring Unavailable NIKKO ROCHE Referring Unavailable MUSA MENJIVAR Referring Unavailable EDUARDO, EHAB Attending Unavailable REBEKAH, CASTINGS TRIMMER Admitting Unavailable REBEKAH, CASTINGS TRIMMER Attending Unavailable ANGELY MUNOZ Attending Unavailable Medications Current Medications Medication Drug Class(es) Dates Sig (Normalized) Sig (Original) [id number] actuat albuterol 0.09 mg/actuat metered dose [...] 09/08/2023 Active apixaban 5 mg oral tablet (5 sources) Factor Xa Inhibitor Start: 11-13-2024 take [...] pectoris, unspecified whether saxman or transplanted heart Take 1 tablet (80 [...] (Coreg) 25 MG tablet Indications: Primary hypertension Take 1 tablet (25 mg) by [...] tablet daily Quantity: 90 Refills: 3 Ordered: 3-Dec-2021 Juanito Peterson MD Start : 18-Jun-2021 Active [...] type, unspecified whether saxman or transplanted heart Take 1 tablet (10 [...] May, Active ezetimibe 10 mg oral tablet (5 sources) Dietary Cholesterol Absorption Inhibitor Start: 11-13-2024 [...] May, Active furosemide 40 mg oral tablet (8 sources) Loop Diuretic Start: 11-13-2024 End: 11-08-2025 [...] 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 Take 1 tablet (120 mg) by mouth Daily Do not crush or chew. 30 tablet 11 12/06/2023 Active Start: 08-31-2023 take 1 tablet by [...] 17-Jun-2020 DO Start : 10-Sep-2019 Active Isosorbide Moose itrate ER Active lisinopril 40 mg oral tablet (20 sources) Angiotensin Converting Enzyme Inhibitor Start: 08-31-2023 End: 11-14-2024 take 1 tablet by mouth once daily lisinopril 40 MG tablet Indications: Primary hypertension Take 1 tablet (40 mg) by [...] 108 (90 Base) MCG/ACT (2 sources) Start: 03-02-2 015 take 2 puff(s) by inhalation every [...] Translations: [CHRONIC KIDNEY DISEASE STAGE 3B] Onset: Chronic obstructive pulmonary disease and bronchiectasis (4 [...] type of vessel, saxman or graft] Onset: 2 02-14-2023 Chronic Diabetes [...] sources) Insomnia; Translations: [Insomnia, unspecified] 11-26-2024 Episodic Screening and history of mental health [...] EHR Cmte Other aftercare (1 source) 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 therapy; Translations: [OTH SENIOR CARE CURRENT DRUG THERAPY] Onset: 01-31-2022 Episodic Other aftercare (1 source) continuous churn buttermaker (current) use of aspirin; Translations: [SENIOR CARE CURRENT USE OF ASPIRIN] Onset: 01-31-2022 Episodic [...] VASODILATORS INIT ENC] Onset: 01-31-2022 Episodic Other lower respiratory disease (2 sources) Other forms of dyspnea; Translations: [Other forms of dyspnea] Onset: 11-13-2024 Episodic Other non-traumatic joint disorders (20 sources) Pain in left knee; Translations: [Left knee pain] Onset: 08-31-2023 08-28-2023 Episodic Residual codes; unclassified (1 source) Patient's intentional underdosing of medication regimen for other reason; Translations: [PT INTENT UNDERDOS MED OTH REASON] Onset: 01-31-2022 Episodic Residual codes; unclassified (2 sources) Localized edema; Translations: [Localized edema] Onset: 11-13-2024 Episodic Skull and face fractures (20 sources) [...] Test Name Value Interpretation Reference Range Facility 36on 02-11-2025 36 Patient stopped by t o report very erratic (but mostly very elevated) BP readings. Cardiac rehab reports very elevated readings for him as well. They don't let him exercise very often because of this. I did confirm his medications: Carvedilol 25mg bid [...] He is scheduled 02/13 for echo at [facility]. Normal [facility] CBC WITH PLATELET NO DI FFERENTIALon 02-07-2025 Erythrocyte distribution width (RBC) [Ratio] 15.8 % High 11.0 - 15.0 % [facility] Hematocrit (Bld) [Volume fraction] 35.2 % Low 42.0 - 54.0 % [facility] Hemoglobin (Bld) [Mass/Vol] 11.5 g/dL Low 14.0 - 18.0 g/dL [facility] Interpretation and review of laboratory results Abnormal [facility] MCH (RBC) [Entitic mass] 29.1 pg 25.9 - 34.0 pg [facility] MCHC (RBC) [Mass/Vol] 32.7 g/dL 29.9 - 35.2 g/dL [facility] MCV (RBC) [Entitic vol] 89.1 fL 80.0 - 94.0 fL [facility] Platelet mean volume (Bld) [Entitic vol] 11.4 fL 9.5 - 13.5 fL [facility] PLT 179 [facility] RBC 3.95 Low [facility] WBC 6.3 [facility] Office Visiton 01-06-2025 Follow-up visit [id number] Viri [address] 1955 M Date Provider Department Center 01/06/2025 [id number]-YTAUANGELY MUNOZ [facility] Family History Problem Relation Age of Onset Coronary artery disease Mother Coronary artery disease Father Coronary artery disease Brother ALS Brother Stroke Brother Family Status - Relation Status Age at Mother Father Sister Alive Brother Level of Service:56756 ME OFFICE/OUTPATIENT ESTABLISHED MOD MDM 30 MIN [facility] 36on 12-18-2024 36 RX for Xarelto sent to patient's pharmacy. Tried to contact patient and make him aware but his VM is not setup so I was unable to LM. [facility] 36 Patient called to cony motta you aware he does not want to take Eliquis anymore due to fatigue. Says he was just sitting this morning eating breakfast and his nose began to bleed. He said he's willing to try something else. Can I send RX for Xarelto 20mg daily? Please advise. Thanks. [facility] ITPon 12-18-2024 [place] [address] Cardiac Rehab Report Signed Patient: LISA FULLER MR#: [id number] : 1955 Acct:[id number] Age/Sex: 69 / M ADM Date: 12/18/24 Loc: CR Attending Dr: Judi Wilson M.D. Ordering Physician: Judi Wilson M.D. Date of Service: 12/18/24 Procedure(s): ITP Accession Number(s): [id number] cc: [facility] Test Date: 2024-12-18 Pat Name: LISA FULLER Department: Room: - Gender: Male Junior Marketing Associate: : 1955 Requested By: JUDI WILSON Order Number: [id number] Reading MD: Raphael Justin Interpretive Statements Okay to proceed with outlined treatment plan. Electronically Signed On 12-18-2024 16:43:09 EDT by Raphael Justin Dictated By: Raphael Justin D.O. Signed By: 12/18/24 1643 12/18/24 1643 DD/ 1442 TD/TT: Computer Project Manager: [facility] Radiology, Radiologist, - 12/19/2024 [place] [address] Cardiac Rehab Report Signed Patient: LISA FULLER MR#: [id number] : 1955 Acct:[id number] Age/Sex: 69 / M ADM Date: 12/18/24 Loc: CR Attending Dr: Judi Wilson M.D. Ordering Physician: Judi Wilson M.D. Date of Service: 12/18/24 Procedure(s): ITP Accession Number(s): [id number] cc: [facility] Test Date: 2024-12-18 Pat Name: LISA FULLER Department: Room: - Gender: Male Junior Marketing Associate: : 1955 Requested By: JUDI WILSON Order Number: [id number] Elizabeth MD: Raphael Justin Interpretive Statements Okay to proceed with outlined treatment plan. Electronically Signed On 12-18-2024 16:43:09 EDT by Raphael Justin Dictated By: Raphael Justin D.O. Signed By: 12/18/24 1643 12/18/24 1643 DD/ 1442 TD/TT: Computer Project Manager: [place] [address] Cardiac Rehab Report Signed Patient: LISA FULLER MR#: [id number] : 1955 Acct:[id number] Age/Sex: 69 / M ADM Date: 12/18/24 Loc: CR Attending Dr: Judi Wilson M.D. Ordering Physician: Raphael Justin D.O. Date of Service: 12/13/24 Procedure(s): ITP Accession Number(s): [id number] cc: [facility] Test Date: 2024-12-13 Pat Name: LISA FULLER Department: Room: - Gender: Male Junior Marketing Associate: : 1955 Requested By: Raphael Justin Order Number: [id number] Elizabeth MD: Raphael Justin Interpretive Statements Okay to proceed with outlined treatment plan. Electronically Signed On 12-18-2024 16:35:58 EDT by Raphael Justin Dictated By: Raphael Justin D.O. Signed By: 12/18/24 1636 12/18/24 1636 DD/ 1327 TD/TT: Computer Project Manager: [facility] Radiology, Radiologist, - 12/19/2024 [place] [address] Cardiac Rehab Report Signed Patient: LISA FULLER MR#: [id number] : 1955 Acct:[id number] Age/Sex: 69 / M ADM Date: 12/18/24 Loc: CR Attending Dr: Judi Wilson M.D. Ordering Physician: Raphael Justin D.O. Date of Service: 12/13/24 Procedure(s): ITP Accession Number(s): [id number] cc: [facility] Test Date: 2024-12-13 Pat Name: LISA FULLER Department: Room: - Gender: Male Junior Marketing Associate: : 1955 Requested By: Raphael Justin Order Number: [id number] Reading MD: Raphael Justin Interpretive Statements Okay to proceed with outlined treatment plan. Electronically Signed On 12-18-2024 16:35:58 EDT by Raphael Justin Dictated By: Raphael Justin D.O. Signed By: 12/18/24163512/18/24 163 DD/ 1327 TD/TT: Computer Project Manager: SWAPNA [facility] Radiology Study observation (narrative) [facility] ITPOrdered By: Radiologist R adiology on 12-18-2024 [facility] Work Phone: [facility] Work Phone: ITPon 12-13-2024 Radiology Study observation (narrative) [facility] Healthcare Follow-Upon 12-12-2024 Follow-Up [id number] FullerViri darell Mathis 1955 M Date Provider Department Center 12/12/2024 Pj-JUDI WILSON [facility] Family History Problem Relation Age of Onset Coronary artery disease Mother Coronary artery disease Father Coronary artery disease Brother ALS Brother Stroke Brother Family Status - Relation Status Age at Mother Father Sister Alive Brother Level of Service:38062 ME OFFICE/OUTPATIENT ESTABLISHED MOD MDM 30 MIN [facility] 11-29-2024 HP H&P reviewed. The patient was examined and there are no changes to the H&P. New onset atrial fibrillation with rapid ventricular response. He is referred for CADEN guided cardioversion. He has been started on Eliquis. In addition he has at least moderate mitral regurgitation by recent transthoracic echocardiogram. We will also assess the severity of the mitral regurgitation by CADEN. [facility] NURSNOTEon 11-29-2024 NURSNOTE Bedside swallow stud [...] off of unit with all of belongings. [facility] Laboratory - Hematology and Cell countson 11-26-2024 HbA1c (Bld) [Mass fraction] 8.2 % [facility] No Panel Informationon 11-26 Interpretation and review of laboratory results Abnormal [facility] 36on 11-22-2024 36 Phone call for [facility]H L ab 11/22/2024 Critical value on BNP of 2.595 please advise [facility] ALL BASIC METABOLIC PANELon 11-22-2024 Anion gap [Moles/Vol] 11.3 mmol/L NO [facility] Calcium [Mass/Vol] 8.5 mg/dL 8.5 - 10. 1 mg/dL [facility] Chloride [Moles/Vol] 105 mmol/L 98 - 10 7 mmol/L [facility] CO2 [Moles/Vol] 27.8 mmol/L 21.0 - 32.0 mmol/L [facility] Creatinine [Mass/Vol] 1.84 mg/dL High 0.70 - 1.30 mg/dL [facility] GFR/1.73 sq M.predicted CKD-EPI (S/P/Bld) [Vol rate/Area] 44 Low >=60 mL/min/1.73 m 2 [facility] Glucose [Mass/Vol] 181 mg/dL High 74 - 106 mg/dL [facility] Potassium [Moles/Vol] 4.1 mmol/L 3.5 - 5.1 mmol/L [facility] Sodium [Moles/Vol] 140 mmol/L 136 - 145 mmol/L [facility] TBH EGFR-NON AF ICELANDIC 36 Low >=60 mL/min/1.73 m 2 [facility] Urea nitrogen [Mass/Vol] 26 mg/dL High 7.0 - 18.0 mg/dL [facility] Urea nitrogen/Creatinine [Mass ratio] 14.1 mg/mg [facility] ALL PRO BNPon 11-22-2024 NT PRO B TYPE NATRIURETIC PEPT 2595 pg/mL Critically high NINF - 900.0 pg/mL [facility] Comment on above: RESULTS CALLED TO CONY OLGUIN Panel Informationon 11-22 Interpretation and review of laboratory results Abnormal [facility] HPon 11-13-2024 HP SUBJECTIVE Reason for Visit: Lisa Fuller is a 69 y.o. year old male patient being seen for 3 week follow-up visit. HPI: Lisa Fuller is a 69 y.o. year old male with significant medical history of CAD status post CABG 2015, hypertension, CKD ( initially seen in [address] Goff), CELESTINA, obesity, DM, and palpitations. 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 He otherwise denies chest pain, palpitations, [...] Musculoskeletal: Inspect (more content not included)... Normal [facility] Office Visiton 11-13-2024 Follow-up visit [id number] Viri Fuller rd L 1955 M Date Provider Department Center 11/13/2024 [id number]-VKXGOW, ADAM [facility] Family History Problem Relation Age of Onset Coronary artery disease Mother Coronary artery disease Father Coronary artery disease Brother ALS Brother Stroke Brother Family Status - Relation Status Age at Mother Father Sister Alive Brother Level of Service:68913 ME OFFICE/OUTPATIENT ESTABLISHED HIGH MDM 40 MIN Normal [facility] CA ECHO DOPPLER COMPLETEon 0 11-08-2024 [facility] [address] [place] [address] Cardiology Report Signed Patient: LISA FULLER MR#: [id number] : 1955 Acct:[id number] Age/Sex: 69 / M ADM Date: 11/07/24 Loc: CARD Attending Dr: Nikko Roche SEW ON OPERATOR Ordering Physician: Nikko Roche NP Date of Service: 11/07/24 Procedure(s): CA echo doppler complete Accession Number(s): [id number] cc: [facility]ST ; Nikko Roche NP Patient Name: LISA FULLER MR#: [id number] : 1955 Exam Date: 11/07/2024 Ordering Doctor: [...] Valve Peak V (more content not included)... [facility] Radiology, Radiologist, MD - 11/08/2024 [place] [address] Cardiology Report Signed Patient: LISA FULLER MR#: [id number] : 1955 Acct:[id number] Age/Sex: 69 / M ADM Date: 11/07/24 Loc: CARD Attending Dr: Nikko Roche NP Ordering Physician: Nikko Roche NP Date of Service: 11/07/24 Procedure(s): CA echo doppler complete Accession Number(s): [id number] cc: [facility] MAST ; Nikko Roche NP Patient Name: LISA FULLER MR#: [id number] : 1955 Exam Date: 11/07/2024 Ordering Doctor: [...] 85.51 ml, 85.51 ml Dictated by: Musa Menjivar M.D. on 11/08/2024 at 09:34 Approved by: Musa Menjivar M.D. on 11/08/2024 at 09:40 Dictated By: MUSA MENJIVAR Signed By: 11/08/24940 DD/ 9 TD/TT: Computer Project Manager: [facility] Radiology Study observation (narrative) [facility] CA ECHO DOPPLER COMPLETEOrde red By: Radiologist Radiology on 11-08-2024 [facility] Work Phone: ALL BASIC METABOLIC PANELon 10-11-2024 Anion gap [Moles/Vol] 14.2 mmol/L [facility] Calcium [Mass/Vol] 8.5 mg/dL 8.5 - 10. 1 mg/dL [facility] Chloride [Moles/Vol] 107 mmol/L 98 - 10 7 mmol/L [facility] CO2 [Moles/Vol] 26.7 mmol/L 21.0 - 32.0 mmol/L [facility] Creatinine [Mass/Vol] 1.66 mg/dL High 0.70 - 1.30 mg/dL [facility] GFR/1.73 sq M.predicted CKD-EPI (S/P/Bld) [Vol rate/Area] 50 Low >=60 mL/min/1.73 m 2 [facility] Glucose [Mass/Vol] 188 mg/dL High 74 - 106 mg/dL [facility] Potassium [Moles/Vol] 3.9 mmol/L 3.5 - 5.1 mmol/L [facility] Sodium [Moles/Vol] 144 mmol/L 136 - 145 mmol/L [facility] TBH EGFR-NON AF ICELANDIC 41 Low >=60 mL/min/1.73 m 2 [facility] Urea nitrogen [Mass/Vol] 34 mg/dL High 7.0 - 18.0 mg/dL [facility] Urea nitrogen/Creatinine [Mass ratio] 20.5 mg/mg [facility] ALL PRO BNPon 10-11-2024 NT PRO B TYPE NATRIURETIC PEPT 1046 pg/mL High NINF - 900.0 pg/mL [facility] No Panel Informationon 10-11 Interpretation and review of laboratory results Abnormal [facility] Office Visiton 10-04-2024 Follow-up visit [id number] Viri Fuller rd L Sr. 1955 M Date Provider Department Center 10/04/2024 [id number] WILSON PEDRO Tariq Family History Problem Relation Age of Onset Coronary artery disease Mother Coronary artery disease Father Coronary artery disease Brother ALS Brother Stroke Brother Family Status - Relation Status Age at Mother Father Brother Level of Service:98659 ME OFFICE/OUTPATIENT ESTABLISHED MOD MDM 30 MIN Normal [facility] MR shoulder RT wo conon MR shoulder RT wo con [facility] [place] [address] [place] [address] MRI Report Signed Patient: Lisa Fuller SR MR#: [id number] : 1955 Acct:[id number] Age/Sex: 69 / M ADM Date: 07/22/24 Loc: [facility] Room: Type: [facility] Attending Dr: Leidy Bennett APRN Copies [...] Valeriano Fuller M.D.07/22/2024 6:44 PM Dictation Location: [place] [address] Transcribed By: [facility] 07/22/241843 Dictated By: Valeriano Fuller II, MD 07/22/24 183 Signed By: 07/22/241843 Normal [facility] Magnetic resonance imaging r eportOrdered By: Valeriano Fuller on 07-22-2024 Study report [facility] [place] [address] [place] [address] MRI Report Signed Patient: Lisa Fuller SR MR#: [id number] : 1955 Acct:[id number] Age/Sex: 69 / M ADM Date: 5 Loc: [facility] Room: Type: [facility] Attending Dr: Leidy Bennett APRN Copies [...] Valeriano Fuller M.D.07/22/2024 6:44 PM Dictation Location: [place] [address] Transcribed By: [facility] 07/22/241843 Dictated By: Valeriano Fuller II, MD 07/22/24 183 Signed By: 07/22/24 184 [facility] Work Phone: XR shoulder RT min 2V*on XR shoulder RT min 2V* [facility] [place] [address] [place], [place] [address] XRay Report Signed Patient: Lisa Fuller SR MR#: [id number] : 1955 Acct:[id number] Age/Sex: 69 / M ADM Date: 06/25/24 Loc: [place] Room: Type: [facility] Attending Dr: Leidy Bennett APRN Copies to: Leidy Bennett APRN Ordering Provider: Leidy Bennett APRN Date of Service: 06/25/24 XR/XR shoulder RT min 2V*: [facility] RIGHT SHOULDER INJURY RIGHT SHOULDER - - 3 views CLINICAL HISTORY: Right shoulder injury yesterday. Now with pain.. COMPARISON: None FINDINGS: Mild degenerative changes of the AC and glenohumeral joints without acute bony process. XR/XR shoulder RT min 2V* IMPRESSION: MILD DEGENERATIVE CHANGES OF THE RIGHT SHOULDER WITHOUT ACUTE BONY PROCESS. Impression dictated by: Godwin Martin Jr., D.OVilma06/25/2024 3:37 PM Dictation Location: [facility]18 Transcribed By: [facility] 06/25/24 1537 Dictated By: Godwin Martin Jr, DO 06/25/24 1537 Signed By: 06/25/24 1537 Normal [facility] Office Visiton 02-26-2024 Follow-up visit [id number] Viri Fuller rd L Sr. 1955 M Date Provider Department Center 02/26/2024 271-JUDI WILSON [facility] Family History Problem Relation Age of Onset Coronary artery disease Mother Coronary artery disease Father Coronary artery disease Brother ALS Brother Stroke Brother Family Status - Relation Status Age at Mother Father Brother Level of Service:02827 ME OFFICE/OUTPATIENT ESTABLISHED LOW MDM 20 MIN Normal [facility] Capillary blood glucose melania urement by glucometer (mass/volume)Ordered By: Davide Cobb on 10-30-2023 Glucose [Mass/Vol] 168 mg/dL Normal [facility] Comment on above: Random Glucose Refer ence Range is dependent on time and content of last meal. Glucose of more than 200 mg/dL in a nonstressed, ambulatory subject supports the diagnosis of Diabetes Mellitus. Result Comment: [place] Glucose Reference Range is dependent on time and content of last meal. Glucose of more than 200 mg/dL in a nonstressed, ambulatory subject supports the diagnosis of Diabetes Mellitus. Performed By: #### G LULS #### Point of Care testing , Glucose Poct Glucometerson 0 10-30-2023 Commemt1 Glu2: Cleaned Meter Normal [facility] Comment on above: Result Comment: PERF ORMED BY: [facility] [address] PATHOLOGIST AGRICULTURAL EDUCATION TEACHER HENOK YANEZ M.D. Performed By: #### G ELANA #### Point of Care testing , Ck 10-30-2023 L Specimen: [id number] Received: 10/30/23 Status: ROSALINDA Diya Num: [id number] Spec Type: Surgical Subm Dr: Davide Cobb MD Tissues: A Colon Biopsy (POLYP AT 20 CM) Procedures: HE/2, Gross/Micro L4 Age/ Patient Sex Location Account Attending Physician Lisa Fuller 68/M [place] [id number] Davide Cobb MD SPEC NUM: [id number] RECD: 10/30/23 STATUS: ROSALINDA LORENZANACherise NUM: [id number] IZAIAH: 10/30/[address]: Davide Cobb MD ENTERED: 10/30/23 [facility] DR: SPEC TYPE: Surgical DEPT: S REC BY: [id number] ORDERED: HE/2, Gross/Micro L4 ORDERED: HE/2, Gross/Micro L4 Pathological Diagnosis Colon polyp biopsy at 20 cm: -Small tubular adenoma, removed Gross Description In formalin labeled polyp at 20 cm is one 0.6 x 0.4 x 0.2 cm piece of samuel-pink mucosa. Submitted entirely in A1. RG/CYC Clinical history: Positive Cologuard CPT Codes 37838 ---- ---- Specimen: [id number] Received: 10/30/23-1322 Status: ROSALINDA Keane Num: [id number] Spec Type: Surgical Subm Dr: Davide Cobb MD Tissues: A Colon Biopsy (POLYP AT 20 CM) Procedures: HE/2, Gross/Micro L4 ---- Patient: FullerLisa SR [id number] (Continued) ---- Signed (signature on file) Tameka Lacey MD 11/01/23 1250 Normal [facility] No Panel InformationOrdered By: Davide Cobb on 10-30-2023 Bedside Glucose Comment Glu2: cleaned meter [facility] XR knee BI 4Von 08-31-2023 XR knee BI 4V [address] [address] XRay Report Signed Patient: Lisa Fuller Del STAPLES MR#: [id number] : 1955 Acct:[id number] Age/Sex: 68 / M ADM Date: 08/31/23 Loc: SOXD Room: Type: [facility] Attending Dr: Jagdeep Stiles II, MD Copies to: Jagdeep Stiles MD Ordering Provider: Jagdeep Stiles MD Date of Service: 08/31/23 XR/XR pelvis 1-2V: M25.562 - Pain in left knee ([id number]) XR/XR knee BI 4V: M25.561 - Pain [...] PROCESS. Impression dictated by: Godwin Martin Jr., D.OVilma08/31/2023 3:26 PM Dictation Location: [place] [address] Transcribed By: [facility] 08/31/23 1526 Dictated By: Godwin Martin Jr, DO 08/31/23 1524 Signed By: 08/31/23 1526 Normal [facility] COVID/FLU/RSV RT-PCRon 08-02 SARS-CoV-2 (COVID-19) RNA ANGÉLICA+probe Ql (Unsp spec) Negative [place] [facility] Other COVID/FLU/RSV RT-PCR Positive [facility] Other COVID/FLU/RSV RT-PCR Negative [facility] Other ALBUMINon 09-08-2022 Albumin [Mass/Vol] 3.7 g/dL Normal 3.4-5.0 [facility] Comment on above: Performed By: #### P HOS, BMP, ALB, MG #### [facility] [address] [place] [address] Dr. Diamante Lacey CREATININE URINEon URINE CREAT 129.52 mg/dL Normal 20.00-300.0 0 [facility] Comment on above: Performed By: #### C REMILLER, PROTU #### [facility] [address] [place] [address] Dr. Diamante Lacey HEMOGLOBINon 09-08-2022 Hemoglobin (Bld) [Mass/Vol] 13.2 g/dL Critically low 14.0-18.0 [facility] Comment on above: Performed By: #### H GB #### [facility] [address] [place] [address] Dr. Diamante Lacey MAGNESIUMon 09-08-2022 Magnesium [Mass/Vol] 1.5 mg/dL Critically low 1.8-2.4 [facility] Comment on above: Performed By: #### P HOS, BMP, ALB, MG #### [facility] [address] [place] [address] Dr. Diamante Lacey PHOSPHORUSon 09-08-2022 Phosphate [Mass/Vol] 3.3 mg/dL Normal 2.6-4.7 [facility] Comment on above: Performed By: #### P HOS, BMP, ALB, MG #### [facility] [address] [place] [address] Dr. Diamante Lacey PROF CHEM 8 (BAS METB)on Anion gap [Moles/Vol] 9.6 mmol/L Normal [facility] Comment on above: Performed By: #### P HOS, BMP, ALB, MG #### [facility] [address] [place] [address] Dr. Diamante Lacey Calcium [Mass/Vol] 8.9 mg/dL Normal 8.5-10.1 [facility] Comment on above: Performed By: #### P HOS, BMP, ALB, MG #### [facility] [address] [place] [address] Dr. Diamante Lacey Chloride [Moles/Vol] 106 mmol/L Normal 98-107 [facility] Comment on above: Performed By: #### P HOS, BMP, ALB, MG #### [facility] [address] [place] [address] Dr. Diamante Lacey CO2 [Moles/Vol] 30.5 mmol/L Normal 21.0-32.0 [facility] Comment on above: Performed By: #### P HOS, BMP, ALB, MG #### [facility] [address] [address] [address] Diamatne Lacey Creatinine [Mass/Vol] 1.34 mg/dL Critically high 0.70-1.30 [facility] Comment on above: Performed By: #### P HOS, BMP, ALB, MG #### [facility] [address] [address] [address] Diamante Lacey EGFR-AF ICELANDIC >60 Normal >=60 [facility] Comment on above: Performed By: #### P HOS, BMP, ALB, MG #### [facility] [address] [place] [address] Dr. Diamante Lacey EGFR-NON AF ICELANDIC 53 mL/min/1.73m2 Critically low >=60 [facility] Comment on above: Performed By: #### P HOS, BMP, ALB, MG #### [facility] [address] [address] [address] Diamante Lacey Glucose [Mass/Vol] 121 mg/dL Critically high 74-106 [facility] Comment on above: Performed By: #### P HOS, BMP, ALB, MG #### [facility] [address] [address] [address] Diamante Lacey Potassium [Moles/Vol] 4.1 mmol/L Normal 3.5-5.1 [facility] Comment on above: Performed By: #### P HOS, BMP, ALB, MG #### [facility] [address] [address] [address] Diamante Lacey Sodium [Moles/Vol] 142 mmol/L Normal 136-145 [facility] Comment on above: Performed By: #### P HOS, BMP, ALB, MG #### [facility] [address] [address] [address] Diamante Lacey Urea nitrogen [Mass/Vol] 19.0 mg/dL Critically high 7.0-18.0 [facility] Comment on above: Performed By: #### P HOS, BMP, ALB, MG #### [facility] [address] [place] [address] Dr. Diamante Lacey Urea nitrogen/Creatinine [Mass ratio] 14.2 mg/mg Normal [facility] Comment on above: Performed By: #### P HOS, BMP, ALB, MG #### [facility] [address] [place] [address] Dr. Diamante Lacey PROTEIN RAND URINEon 023 UR PROT 15.5 mg/dL Critically high <=11.9 [facility] Comment on above: Performed By: #### C REAU, PROTU #### [facility] [address] [place] [address] Dr. Diamante Lacey CBC AUTO DIFFon 06-06-2022 BASO # 0.1 103/ul Normal 0.0-0.1 [facility] Comment on above: Performed By: #### B MP #### [facility] [address] [place] [address] Dr. Diamante Lacey Basophils/100 WBC (Bld) 0.8 % Normal 0.2-2.0 [facility] Comment on above: Performed By: #### B MP #### [facility] [address] [place] [address] Dr. Diamante Lacey EO # 0.2 103/ul Normal 0.0-0.7 [facility] Comment on above: Performed By: #### B MP #### [facility] [address] [place] [address] Dr. Diamante Lacey Eosinophils/100 WBC (Bld) 3.0 % Normal 0.9-7.0 [facility] Comment on above: Performed By: #### B MP #### [facility] [address] [place] [address] Dr. Diamante Lacey Erythrocyte distribution width (RBC) [Ratio] 14.2 % Normal 11.0-15.0 [facility] Comment on above: Performed By: #### B MP #### [facility] [address] [place] [address] Dr. Diamante Lacey Hematocrit (Bld) [Volume fraction] 41.4 % Critically low 42.0-54.0 [facility] Comment on above: Performed By: #### B MP #### [facility] [address] [place] [address] Dr. Diamante Lacey Hemoglobin (Bld) [Mass/Vol] 14.0 g/dL Normal 14.0-18.0 [facility] Comment on above: Performed By: #### B MP #### [facility] [address] [place] [address] Dr. Diamante Lacey IG # 0.03 10e3/ul Normal 0.00-0.03 [facility] Comment on above: Performed By: #### B MP #### [facility] [address] [place] [address] Dr. Diamante Lacey IG % 0.4 % Normal 0.0-0.5 [facility] Comment on above: Performed By: #### B MP #### [facility] [address] [place] [address] Dr. Diamante Lacey LYMPH # 1.8 103/ul Normal 1.2-3.8 [facility] Comment on above: Performed By: #### B MP #### [facility] [address] [place] [address] Dr. Diamante Lacey Lymphocytes/100 WBC (Bld) 23.0 % Normal 20.5-60.0 [facility] Comment on above: Performed By: #### B MP #### [facility] [address] [place] [address] Dr. Diamante Lacey MANUAL DIFF REQ NO Normal [facility] Comment on above: Performed By: #### B MP #### [facility] [address] [place] [address] Dr. Diamante Lacey MCH (RBC) [Entitic mass] 30.3 pg Normal 25.9-34.0 [facility] Comment on above: Performed By: #### B MP #### [facility] [address] [place] [address] Dr. Diamante Lacey MCHC (RBC) [Mass/Vol] 33.8 g/dL Normal 29.9-35.2 [facility] Comment on above: Performed By: #### B MP #### [facility] [address] [address] [address] Diamante Lacey MCV (RBC) [Entitic vol] 89.6 fL Normal 80.0-94.0 [facility] Comment on above: Performed By: #### B MP #### [facility] [address] [address] [address] Diamante Lacey MONO # 0.8 103/ul Normal 0.3-0.8 [facility] Comment on above: Performed By: #### B MP #### [facility] [address] [address] [address] Diamante Lacey Monocytes/100 WBC (Bld) 9.8 % Normal 1.7-12.0 [facility] Comment on above: Performed By: #### B MP #### [facility] [address] [place] [address] Dr. Diamante Lacey NEUT # 5.0 103/ul Normal 1.4-6.5 [facility] Comment on above: Performed By: #### B MP #### [facility] [address] [place] [address] Dr. Diamante Lacey Neutrophils/100 WBC (Bld) 63.0 % Normal 43.0-75.0 [facility] Comment on above: Performed By: #### B MP #### [facility] [address] [address] [address] Diamante Lacey Platelet mean volume (Bld) [Entitic vol] 10.4 fL Normal 9.5-13.5 [facility] Comment on above: Performed By: #### B MP #### [facility] [address] [address] [address] Diamante Lacey PLT 215 103/ul Normal 150-450 [facility] Comment on above: Performed By: #### B MP #### [facility] [address] [place] [address] Dr. Diamante Lacey RBC 4.62 106/ul Critically low 4.70-6.10 [facility] Comment on above: Performed By: #### B MP #### [facility] [address] [place] [address] Dr. Diamante Lacey WBC 7.9 103/ul Normal 4.0-11.0 [facility] Comment on above: Performed By: #### B MP #### [facility] [address] [place] [address] Dr. Diamante Lacey CREATININE URINEon 2 URINE CREAT 46.09 mg/dL Normal 20.00-300.0 0 [facility] Comment on above: Performed By: #### B MP #### [facility] [address] [place] [address] Dr. Diamante Lacey MAGNESIUMon 06-06-2022 Magnesium [Mass/Vol] 2.2 mg/dL Normal 1.8-2.4 [facility] Comment on above: Performed By: #### B MP #### [facility] [address] [place] [address] Dr. Diamante Lacey PHOSPHORUSon 06-06-2022 Phosphate [Mass/Vol] 4.9 mg/dL Critically high 2.6-4.7 [facility] Comment on above: Performed By: #### B MP #### [facility] [address] [place] [address] Dr. Diamante Lacey PROF 14(COMP METB)on 022 Albumin [Mass/Vol] 3.9 g/dL Normal 3.4-5.0 [facility] Comment on above: Performed By: #### B MP #### [facility] [address] [place] [address] Dr. Diamante Lacey Albumin/Globulin [Mass ratio] 1.3 {ratio} Normal [facility] Comment on above: Performed By: #### B MP #### [facility] [address] [place] [address] Dr. Diamante Lacey ALP [Catalytic activity/Vol] 80 U/L Normal 46-116 [facility] Comment on above: Performed By: #### B MP #### [facility] [address] [place] [address] Dr. Diamante Lacey ALT [Catalytic activity/Vol] 32 U/L Normal 16-63 [facility] Comment on above: Performed By: #### B MP #### [facility] [address] [address] [address] Diamante Lacey Anion gap [Moles/Vol] 10.5 mmol/L Normal [facility] Comment on above: Performed By: #### B MP #### [facility] [address] [address] [address] Diamante Lacey AST [Catalytic activity/Vol] 8 U/L Critically low 15-37 [facility] Comment on above: Performed By: #### B MP #### [facility] [address] [place] [address] Dr. Diamante Lacey Bilirubin [Mass/Vol] 0.6 mg/dL Normal 0.2-1.0 [facility] Comment on above: Performed By: #### B MP #### [facility] [address] [place] [address] Dr. Diamante Lacey Calcium [Mass/Vol] 9.4 mg/dL Normal 8.5-10.1 [facility] Comment on above: Performed By: #### B MP #### [facility] [address] [place] [address] Dr. Diamante Lacey Chloride [Moles/Vol] 103 mmol/L Normal 98-107 [facility] Comment on above: Performed By: #### B MP #### [facility] [address] [address] [address] Diamante Lacey CO2 [Moles/Vol] 30.7 mmol/L Normal 21.0-32.0 [facility] Comment on above: Performed By: #### B MP #### [facility] [address] [address] [address] Diamante Lacey Creatinine [Mass/Vol] 1.72 mg/dL Critically high 0.70-1.30 [facility] Comment on above: Performed By: #### B MP #### [facility] [address] [address] [address] Diamante Lacey EGFR-AF ICELANDIC 48 mL/min/1.73m2 Critically low >=60 [facility] Comment on above: Performed By: #### B MP #### [facility] [address] [address] [address] Diamante Lacey EGFR-NON AF ICELANDIC 40 mL/min/1.73m2 Critically low >=60 [facility] Comment on above: Performed By: #### B MP #### [facility] [address] [address] [address] Diamante Lacey Globulin (S) [Mass/Vol] 3.1 g/dL Normal [facility] Comment on above: Performed By: #### B MP #### [facility] [address] [address] [address] Diamante Lacey Glucose [Mass/Vol] 137 mg/dL Critically high 74-106 [facility] Comment on above: Performed By: #### B MP #### [facility] [address] [address] [address] Diamante Lacey Potassium [Moles/Vol] 4.2 mmol/L Normal 3.5-5.1 [facility] Comment on above: Performed By: #### B MP #### [facility] [address] [address] [address] Diamante Lacey Protein [Mass/Vol] 7.0 g/dL Normal 6.4-8.2 [facility] Comment on above: Performed By: #### B MP #### [facility] [address] [address] [address] Diamante Lacey Sodium [Moles/Vol] 140 mmol/L Normal 136-145 [facility] Comment on above: Performed By: #### B MP #### [facility] [address] [address] [address] Diamante Lacey Urea nitrogen [Mass/Vol] 32.0 mg/dL Critically high 7.0-18.0 [facility] Comment on above: Performed By: #### B MP #### [facility] [address] [address] [address] Diamante aLcey Urea nitrogen/Creatinine [Mass ratio] 18.6 mg/mg Normal [facility] Comment on above: Performed By: #### B MP #### [facility] [address] [address] [address] Diamante Lacey PROTEIN RAND URINEon 022 UR PROT <6.0 Normal <=11.9 [facility] Comment on above: Performed By: #### B MP #### [facility] [address] [place] [address] Dr. Diamante Lacey UA RANDOM W/MICROSCOPICon BACTERIA NONE SEEN Normal NONE SEEN [facility] Comment on above: Performed By: #### B MP #### [facility] [address] [place] [address] Dr. Diamante Lacey Bilirubin Ql (U) Negative Normal NEGATIVE [facility] Comment on above: Performed By: #### B MP #### [facility] [address] [place] [address] Dr. Diamante Lacey CAST NONE SEEN Normal NONE SEEN [facility] Comment on above: Performed By: #### B MP #### [facility] [address] [place] [address] Dr. Diamante Lacey Clarity (U) CLEAR Normal CLEAR [facility] Comment on above: Performed By: #### B MP #### [facility] [address] [place] [address] Dr. Diamante Lacey Color (U) LT. YELLOW Normal YELLOW [facility] Comment on above: Performed By: #### B MP #### [facility] [address] [place] [address] Dr. Diamante Lacey Crystals LM Nom (Urine sed) NONE SEEN Normal NONE SEEN [facility] Comment on above: Performed By: #### B MP #### [facility] [address] [place] [address] Dr. Diamante Lacey Epithelial cells LM Ql (Urine sed) RARE Normal NONE SEEN /RARE [facility] Comment on above: Performed By: #### B MP #### [facility] [address] [place] [address] Dr. Diamante Lacey Glucose Ql (U) >1000 Abnormal NEGATIVE [facility] Comment on above: Performed By: #### B MP #### [facility] [address] [address] [address] Diamante Lacey Hemoglobin Ql (U) Negative Normal NEGATIVE [facility] Comment on above: Performed By: #### B MP #### [facility] [address] [address] [address] Diamante Lacey Ketones Ql (U) Negative Normal NEGATIVE [facility] Comment on above: Performed By: #### B MP #### [facility] [address] [place] [address] Dr. Diamante Lacey LEUKOCYTES Negative Normal NEGATIVE [facility] Comment on above: Performed By: #### B MP #### [facility] [address] [place] [address] Dr. Diamante Lacey MUCOUS NONE SEEN Normal NONE SEEN [facility] Comment on above: Performed By: #### B MP #### [facility] [address] [place] [address] Dr. Diamante Lacey Nitrite Ql (U) Negative Normal NEGATIVE [facility] Comment on above: Performed By: #### B MP #### [facility] [address] [place] [address] Dr. Diamante Lacey pH (U) 5.5 [pH] Normal 5-9 [facility] Comment on above: Performed By: #### B MP #### [facility] [address] [place] [address] Dr. Diamante Lacey RBC NONE SEEN Abnormal 0-2 [facility] Comment on above: Performed By: #### B MP #### [facility] [address] [place] [address] Dr. Diamante Lacey SPEC GRAVITY 1.020 Normal 1.005-<=1.0 25 [facility] Comment on above: Performed By: #### B MP #### [facility] [address] [place] [address] Dr. Diamante Lacey UA PROTEIN Negative Normal NEGATIVE/ TRACE [facility] Comment on above: Performed By: #### B MP #### [facility] [address] [place] [address] Dr. Diamante Lacey Urobilinogen Qn (U) 0.2 {Iraida'U}/dL Normal 0.2 - 1. 0 [facility] Comment on above: Performed By: #### B MP #### [facility] [address] [place] [address] Dr. Diamatne Lacey WBC NONE SEEN Normal NONE SEEN [facility] Comment on above: Performed By: #### B MP #### [facility] [address] [address] [address] Diamante Lacey PROF CHEM 8 (BAS METB)on Anion gap [Moles/Vol] 14.5 mmol/L Normal [facility] Comment on above: Performed By: #### B MP #### [facility] [address] [place] [address] Dr. Diamante Lacey Calcium [Mass/Vol] 9.3 mg/dL Normal 8.5-10.1 [facility] Comment on above: Performed By: #### B MP #### [facility] [address] [place] [address] Dr. Diamante Lacey Chloride [Moles/Vol] 103 mmol/L Normal 98-107 [facility] Comment on above: Performed By: #### B MP #### [facility] [address] [place] [address] Dr. Diamante Lacey CO2 [Moles/Vol] 28.0 mmol/L Normal 21.0-32.0 [facility] Comment on above: Performed By: #### B MP #### [facility] [address] [place] [address] Dr. Diamante Lacey Creatinine [Mass/Vol] 1.67 mg/dL Critically high 0.70-1.30 [facility] Comment on above: Performed By: #### B MP #### [facility] [address] [place] [address] Dr. Diamante Lacey EGFR-AF ICELANDIC 50 mL/min/1.73m2 Critically low >=60 [facility] Comment on above: Performed By: #### B MP #### [facility] [address] [place] [address] Dr. Diamante Lacey EGFR-NON AF ICELANDIC 41 mL/min/1.73m2 Critically low >=60 [facility] Comment on above: Performed By: #### B MP #### [facility] [address] [address] [address] Diamante Lacey Glucose [Mass/Vol] 165 mg/dL Critically high 74-106 [facility] Comment on above: Performed By: #### B MP #### [facility] [address] [address] [address] Diamante Lacey Potassium [Moles/Vol] 4.5 mmol/L Normal 3.5-5.1 [facility] Comment on above: Performed By: #### B MP #### [facility] [address] [address] [address] Diamante Lacey Sodium [Moles/Vol] 141 mmol/L Normal 136-145 [facility] Comment on above: Performed By: #### B MP #### [facility] [address] [address] [address] Diamante Lacey Urea nitrogen [Mass/Vol] 39.0 mg/dL Critically high 7.0-18.0 [facility] Comment on above: Performed By: #### B MP #### [facility] [address] [address] [address] Diamante Lacey Urea nitrogen/Creatinine [Mass ratio] 23.4 mg/mg Normal [facility] Comment on above: Performed By: #### B MP #### [facility] [address] [address] [address] Diamante Lacey PROF CHEM 8 (BAS METB)on Anion gap [Moles/Vol] 13.7 mmol/L Normal [facility] Comment on above: Performed By: #### B MP #### [facility] [address] [address] [address] Diamante Lacey Calcium [Mass/Vol] 9.0 mg/dL Normal 8.5-10.1 [facility] Comment on above: Performed By: #### B MP #### [facility] [address] [address] [address] Diamante Lacey Chloride [Moles/Vol] 102 mmol/L Normal 98-107 [facility] Comment on above: Performed By: #### B MP #### [facility] [address] [address] [address] Diamante Lacey CO2 [Moles/Vol] 29.3 mmol/L Normal 21.0-32.0 [facility] Comment on above: Performed By: #### B MP #### [facility] [address] [address] [address] Diamante Lacey Creatinine [Mass/Vol] 1.66 mg/dL Critically high 0.70-1.30 [facility] Comment on above: Performed By: #### B MP #### [facility] [address] [place] [address] Dr. Diamante Lacey EGFR-AF ICELANDIC 50 mL/min/1.73m2 Critically low >=60 [facility] Comment on above: Performed By: #### B MP #### [facility] [address] [place] [address] Dr. Diamante Lacey EGFR-NON AF ICELANDIC 41 mL/min/1.73m2 Critically low >=60 [facility] Comment on above: Performed By: #### B MP #### [facility] [address] [place] [address] Dr. Diamante Lacey Glucose [Mass/Vol] 137 mg/dL Critically high 74-106 [facility] Comment on above: Performed By: #### B MP #### [facility] [address] [address] [address] Diamante Lacey Potassium [Moles/Vol] 4.0 mmol/L Normal 3.5-5.1 [facility] Comment on above: Performed By: #### B MP #### [facility] [address] [address] [address] Diamante Lacey Sodium [Moles/Vol] 141 mmol/L Normal 136-145 [facility] Comment on above: Performed By: #### B MP #### [facility] [address] [address] [address] Diamante Lacey Urea nitrogen [Mass/Vol] 38.0 mg/dL Critically high 7.0-18.0 [facility] Comment on above: Performed By: #### B MP #### [facility] [address] [address] [address] Diamante Lacey Urea nitrogen/Creatinine [Mass ratio] 22.9 mg/mg Normal [facility] Comment on above: Performed By: #### B MP #### [facility] [address] [address] [address] Diamante Lacey NM STRESS ONLY SINGLEon NM STRESS ONLY SINGLE Patient: LISA FULLER Exam Date: 02/16/2022 : 1955 Gender:M Ordering : DR SPENCER MAST M.D. Admission #: [id number] Family : DR JUDI WILSON M.D. Order #: [id number] CLICK HERE TO VIEW EXAM RADIOLOGY REPORT [...] MD on 03/24/2022 at 11:54 Normal [facility] CBC AUTO DIFFon 01-27-2022 BASO # 0.1 103/ul Normal 0.0-0.1 [facility] Comment on above: Performed By: #### B MP #### [facility] [address] [place] [address] Dr. Diamante Lacey Basophils/100 WBC (Bld) 0.6 % Normal 0.2-2.0 [facility] Comment on above: Performed By: #### B MP #### [facility] [address] [place] [address] Dr. Diamante Lacey EO # 0.2 103/ul Normal 0.0-0.7 [facility] Comment on above: Performed By: #### B MP #### [facility] [address] [place] [address] Dr. Diamante Lacey Eosinophils/100 WBC (Bld) 2.6 % Normal 0.9-7.0 [facility] Comment on above: Performed By: #### B MP #### [facility] [address] [place] [address] Dr. Diamante Lacey Erythrocyte distribution width (RBC) [Ratio] 14.6 % Normal 11.0-15.0 [facility] Comment on above: Performed By: #### B MP #### [facility] [address] [place] [address] Dr. Diamante Lacey Hematocrit (Bld) [Volume fraction] 39.1 % Critically low 42.0-54.0 [facility] Comment on above: Performed By: #### B MP #### [facility] [address] [place] [address] Dr. Diamante Lacey Hemoglobin (Bld) [Mass/Vol] 12.8 g/dL Critically low 14.0-18.0 [facility] Comment on above: Performed By: #### B MP #### [facility] [address] [place] [address] Dr. Diamante Lacey IG # 0.02 10e3/ul Normal 0.00-0.03 [facility] Comment on above: Performed By: #### B MP #### [facility] [address] [place] [address] Dr. Diamante Lacey IG % 0.2 % Normal 0.0-0.5 [facility] Comment on above: Performed By: #### B MP #### [facility] [address] [place] [address] Dr. Diamante Lacey LYMPH # 1.7 103/ul Normal 1.2-3.8 [facility] Comment on above: Performed By: #### B MP #### [facility] [address] [place] [address] Dr. Diamante Lacey Lymphocytes/100 WBC (Bld) 20.8 % Normal 20.5-60.0 [facility] Comment on above: Performed By: #### B MP #### [facility] [address] [place] [address] Dr. Diamante Lacey MANUAL DIFF REQ NO Normal [facility] Comment on above: Performed By: #### B MP #### [facility] [address] [place] [address] Dr. Diamante Lacey MCH (RBC) [Entitic mass] 30.0 pg Normal 25.9-34.0 [facility] Comment on above: Performed By: #### B MP #### [facility] [address] [place] [address] Dr. Diamante Lacey MCHC (RBC) [Mass/Vol] 32.7 g/dL Normal 29.9-35.2 [facility] Comment on above: Performed By: #### B MP #### [facility] [address] [place] [address] Dr. Diamante Lacey MCV (RBC) [Entitic vol] 91.6 fL Normal 80.0-94.0 [facility] Comment on above: Performed By: #### B MP #### [facility] [address] [place] [address] Dr. Diamante Lacey MONO # 0.8 103/ul Normal 0.3-0.8 [facility] Comment on above: Performed By: #### B MP #### [facility] [address] [place] [address] Dr. Diamante Lacey Monocytes/100 WBC (Bld) 9.4 % Normal 1.7-12.0 [facility] Comment on above: Performed By: #### B MP #### [facility] [address] [place] [address] Dr. Diamante Lacey NEUT # 5.5 103/ul Normal 1.4-6.5 [facility] Comment on above: Performed By: #### B MP #### [facility] [address] [place] [address] Dr. Diamante Lacey Neutrophils/100 WBC (Bld) 66.4 % Normal 43.0-75.0 [facility] Comment on above: Performed By: #### B MP #### [facility] [address] [place] [address] Dr. Diamante Lacey Platelet mean volume (Bld) [Entitic vol] 11.3 fL Normal 9.5-13.5 [facility] Comment on above: Performed By: #### B MP #### [facility] [address] [place] [address] Dr. Diamante Lacey PLT 196 103/ul Normal 150-450 [facility] Comment on above: Performed By: #### B MP #### [facility] [address] [place] [address] Dr. Diamante Lacey RBC 4.27 106/ul Critically low 4.70-6.10 [facility] Comment on above: Performed By: #### B MP #### [facility] [address] [place] [address] Dr. Diamante Lacey WBC 8.3 103/ul Normal 4.0-11.0 [facility] Comment on above: Performed By: #### B MP #### [facility] [address] [place] [address] Dr. Diamante Lacey LIPASEon 01-27-2022 Lipase [Catalytic activity/Vol] 227.0 U/L Normal 73.0-393.0 [facility] Comment on above: Performed By: #### B MP #### [facility] [address] [place] [address] Dr. Diamante Lacey MAGNESIUMon 01-27-2022 Magnesium [Mass/Vol] 1.7 mg/dL Critically low 1.8-2.4 [facility] Comment on above: Performed By: #### M G #### [facility] [address] [place] [address] Dr. Diamante Lacey PROF 14(COMP METB)on 022 Albumin [Mass/Vol] 3.6 g/dL Normal 3.4-5.0 [facility] Comment on above: Performed By: #### B MP #### [facility] [address] [place] [address] Dr. Diamante Lacey Albumin/Globulin [Mass ratio] 1.4 {ratio} Normal [facility] Comment on above: Performed By: #### B MP #### [facility] [address] [place] [address] Dr. Diamante Lacey ALP [Catalytic activity/Vol] 88 U/L Normal 46-116 [facility] Comment on above: Performed By: #### B MP #### [facility] [address] [place] [address] Dr. Diamante Lacey ALT [Catalytic activity/Vol] 30 U/L Normal 16-63 [facility] Comment on above: Performed By: #### B MP #### [facility] [address] [place] [address] Dr. Diamante Lacey Anion gap [Moles/Vol] 15.7 mmol/L Normal [facility] Comment on above: Performed By: #### B MP #### [facility] [address] [place] [address] Dr. Diamante Lacey AST [Catalytic activity/Vol] 13 U/L Critically low 15-37 [facility] Comment on above: Performed By: #### B MP #### [facility] [address] [place] [address] Dr. Diamante Lacey Bilirubin [Mass/Vol] 0.5 mg/dL Normal 0.2-1.0 [facility] Comment on above: Performed By: #### B MP #### [facility] [address] [place] [address] Dr. Diamante Lacey Calcium [Mass/Vol] 8.5 mg/dL Normal 8.5-10.1 [facility] Comment on above: Performed By: #### B MP #### [facility] [address] [place] [address] Dr. Diamante Lacey Chloride [Moles/Vol] 106 mmol/L Normal 98-107 [facility] Comment on above: Performed By: #### B MP #### [facility] [address] [address] [address] Diamante Lacey CO2 [Moles/Vol] 24.4 mmol/L Normal 21.0-32.0 [facility] Comment on above: Performed By: #### B MP #### [facility] [address] [address] [address] Diamante Lacey Creatinine [Mass/Vol] 1.41 mg/dL Critically high 0.70-1.30 [facility] Comment on above: Performed By: #### B MP #### [facility] [address] [place] [address] Dr. Diamante Lacey EGFR-AF ICELANDIC >60 Normal >=60 [facility] Comment on above: Performed By: #### B MP #### [facility] [address] [place] [address] Dr. Diamante Lacey EGFR-NON AF ICELANDIC 50 mL/min/1.73m2 Critically low >=60 [facility] Comment on above: Performed By: #### B MP #### [facility] [address] [address] [address] Diamante Lacey Globulin (S) [Mass/Vol] 2.5 g/dL Normal [facility] Comment on above: Performed By: #### B MP #### [facility] [address] [address] [address] Diamante Lacey Glucose [Mass/Vol] 103 mg/dL Normal 74-106 [facility] Comment on above: Performed By: #### B MP #### [facility] [address] [address] [address] Diamante Lacey Potassium [Moles/Vol] 4.1 mmol/L Normal 3.5-5.1 [facility] Comment on above: Performed By: #### B MP #### [facility] [address] [address] [address] Diamante Lacey Protein [Mass/Vol] 6.1 g/dL Critically low 6.4-8.2 [facility] Comment on above: Performed By: #### B MP #### [facility] [address] [address] [address] Diamante Lacey Sodium [Moles/Vol] 142 mmol/L Normal 136-145 [facility] Comment on above: Performed By: #### B MP #### [facility] [address] [address] [address] Diamante Lacey Urea nitrogen [Mass/Vol] 23.0 mg/dL Critically high 7.0-18.0 [facility] Comment on above: Performed By: #### B MP #### [facility] [address] [address] [address] Diamante Lacey Urea nitrogen/Creatinine [Mass ratio] 16.3 mg/mg Normal [facility] Comment on above: Performed By: #### B MP #### [facility] [address] [address] [address] Diamante Lacey TROPONIN, HIGH SENSITIVITYon 01-27-2022 HSTROP 15.5 pg/mL Normal 4.0-76.1 [facility] Comment on above: Result Comment: CUT- OFF POINTS HAVE BEEN ESTABLISHED BASED ON THE FOURTH UNIVERSAL DEFINITIONS OF MYOCARDIAL INFARCTION. THE UPPER REFERENCE LIMIT (URL) OF TROPONIN, DEFINED THE 99TH PERCENTILE OF cTnI DISTRIBUTION IN A REFERENCE POPULATION, HAS BEEN CONFIRMED THE DECISION THRESHOLD FOR [place] DIAGNOSIS. Performed By: #### B MP #### [facility] [address] [address] [address] Diamante Lacey HSTROP 13.8 pg/mL Normal 4.0-76.1 [facility] Comment on above: Result Comment: CUT- OFF POINTS HAVE BEEN ESTABLISHED BASED ON THE FOURTH UNIVERSAL DEFINITIONS OF MYOCARDIAL INFARCTION. THE UPPER REFERENCE LIMIT (URL) OF TROPONIN, DEFINED THE 99TH PERCENTILE OF cTnI DISTRIBUTION IN A REFERENCE POPULATION, HAS BEEN CONFIRMED THE DECISION THRESHOLD FOR [place] DIAGNOSIS. Performed By: #### B MP #### [facility] [address] [address] [address] Diamante Lacey XR CHEST 1 Von [...] ALBERTO RAE Date: 2022-01-27 19:00 Normal [facility] Office Visit (Cardiology)on 06-18-2021 Follow-up visit [...] time of your visit. Chief Complaint LISA FULLER is being seen for hypertension. History of [...] negative for complaint. Vitals Vital Signs Recorded: [id number] 01:30PMRecorded: [id number] 01:28PM Kuyghrru091, RUE, Gzspkvj420, LUE, Sitting Jhbqtzojf15, RUE, Rclfzit89, LUE, Sitting Heart Rate78, L Radial Height5 ft 10 in Littua266 lb BMI Jsbkhjbrlb56.72 kg/m2 BSA Calculated2.26 Physical Exam Constitutional: alert [...] No Panel Informationon 06-11 8.8\S\8.8 Normal 8.2-10.2 [facility] [address] DO Work Phone: Comment on above: PERFORMED BY:[facility] MAT[place], [place] [phone] MEDICAL DIRECTORHENOK YANEZ M.D. 27.0\S\27.0 Normal 22.0-30.0 [facility] 250 DO Work Phone: 103\S\103 Normal 95-114 [facility] 250 DO Work Phone: 4.4\S\4.4 Normal 3.5-5.1 [facility] 250 DO Work Phone: 138\S\138 Normal 136-146 [facility] Work [facility]: 53\S\53 [facility] Work Phone: Comment on above: GFR estimated refere nce range: According to KDOQI guidelines, <60 ml/min/1.73m2 is sufficient to diagnose a patient with chronic kidney disease. 44\S\44 Normal [facility] Work Phone: 1.59\S\1.59 above high threshold 0.64-1.27 [facility] Work Phone: 25\S\25 above high threshold 9-23 [facility] Work Phone: 143\S\143 above high threshold 70-100 [facility] Work Phone: Comment on above: [...] in adult Healthy Weight Tips; Status:Complete; Done: [id number] Coronary artery disease IO EKG Electrocardiogram- 12 Lead; Status:Complete; Done: 28May2021 Coronary artery disease, Essential hypertension, benign Start: Spironolactone 25 MG Oral Tablet; TAKE 1 TABLET DAILY Basic Metabolic Panel; Status:Active; Requested for:11Jun2021; SocHx: Former smoker Tobacco Use Screening; Status:Complete; Done: 28May2021 Patient Instructions By signing my name below, I, Mara Jolly LPN,Geniaibmaría, attest that this documentation has been prepared [...] up in 3 months Chief Complaint LISA FULLER is being seen for New Patient. History [...] Vital Signs Recorded: 28May2021 02:21PMRecorded: 28May2021 02:13PM Sptcgjzs193, LUE, Cdeucic857, RUE, Sitting Globilpto18, LUE, Susxzou708, RUE, Sitting Heart Rate71, Apical Height5 ft 10 in Eqxyoo904 lb BMI Kmxumkvtfb52.87 kg/m2 BSA Calculated2.27 Tobacco Useb) No Fall [...] S1 and (more content not included)... Normal [facility] Tobacco Screening.on 021 Fall risk assessment a) No falls within the last year -[facility] 250 DO Work Phone: Tobacco use status [facility] b) No -[facility] 250 DO Work Phone: Vital Signs Date Time Vital Sign Value Performing Clinician Facility 11-26-2024 09:04-0400 Body height 175.3 cm Zoila Mosqueda SEW ON OPERATOR Work Phone: [facility] 11-26-2024 09:04-0400 Body mass index (BMI) [Ratio] 37.95 kg/m2 Zoila Mosqueda SEW ON OPERATOR Work Phone: [facility] 11-26-2024 09:04-0400 Body weight 116.57 kg Zoila Mosqueda SEW ON OPERATOR Work Phone: [facility] 11-26-2024 09:04-0400 Diastolic blood pressure 92 mm[Hg] Zoila Mosqueda SEW ON OPERATOR Work Phone: [facility] 11-26-2024 09:04-0400 Heart rate 46 /min Zoila Mosqueda SEW ON OPERATOR Work Phone: [facility] 11-26-2024 09:04-0400 Respiratory rate 17 /min Zoila Mosqueda SEW ON OPERATOR Work Phone: [facility] 11-26-2024 09:04-0400 SaO2% (BldA) [Mass fraction] 99 % Zoila Mosqueda SEW ON OPERATOR Work Phone: [facility] 11-26-2024 09:04-0400 Systolic blood pressure 168 mm[Hg] Zoila Mosqueda SEW ON OPERATOR Work Phone: [facility] 08-14-2024 13:47-0500 Body height 175.26 cm Spencer Mast MD Work Phone: [facility] 08-14-2024 13:47-0500 Body mass index (BMI) [Ratio] 35.4 kg/m2 Spencer Mast MD Work Phone: [facility] 08-14-2024 13:47-0500 Body weight 108.86 kg Spencer Mast MD Work Phone: [facility] 08-01-2024 15:20-0500 Body height 175.3 cm Zoila Mosqueda SEW ON OPERATOR Work Phone: [facility] 08-01-2024 15:20-0500 Body mass index (BMI) [Ratio] 36.27 kg/m2 Zoila Mosqueda SEW ON OPERATOR Work Phone: [facility] 08-01-2024 15:20-0500 Body weight 111.4 kg Zoila Mosqueda SEW ON OPERATOR Work Phone: [facility] 08-01-2024 15:20-0500 Diastolic blood pressure 86 mm[Hg] Zoila Msoqueda SEW ON OPERATOR Work Phone: [facility] 08-01-2024 15:20-0500 Heart rate 105 /min Zoila Mosqueda SEW ON OPERATOR Work Phone: [facility] 08-01-2024 15:20-0500 Respiratory rate 17 /min Zoila Mosqueda SEW ON OPERATOR Work Phone: [facility] 08-01-2024 15:20-0500 SaO2% (BldA) [Mass fraction] 96 % Zoila Mosqueda SEW ON OPERATOR Work Phone: [facility] 08-01-2024 15:20-0500 Systolic blood pressure 182 mm[Hg] Zoila Mosqueda SEW ON OPERATOR Work Phone: [facility] 06-20-2024 16:21-0500 Body height 175.3 cm Zoila Mosqueda SEW ON OPERATOR Work Phone: [facility] 06-20-2024 16:21-0500 Body mass index (BMI) [Ratio] 38.22 kg/m2 Zoila Millvale SEW ON OPERATOR Work Phone: [facility] 06-20-2024 16:21-0500 Body weight 117.39 kg Zoila Millvale SEW ON OPERATOR Work Phone: [facility] 06-20-2024 16:21-0500 Diastolic blood pressure 76 mm[Hg] Zoila Millvale SEW ON OPERATOR Work Phone: [facility] 06-20-2024 16:21-0500 Heart rate 67 /min Zoila Panda SEW ON OPERATOR Work Phone: [facility] 06-20-2024 16:21-0500 Respiratory rate 17 /min Zoila [place] SEW ON OPERATOR Work Phone: [facility] 06-20-2024 16:21-0500 SaO2% (BldA) [Mass fraction] 98 % Zoila Panda SEW ON OPERATOR Work Phone: [facility] 06-20-2024 16:21-0500 Systolic blood pressure 138 mm[Hg] Zoila [place]vale SEW ON OPERATOR Work Phone: [facility] 05-02-2024 15:27-0400 Body height 175.3 cm Zoila [place] SEW ON OPERATOR Work Phone: [facility] 05-02-2024 15:27-0400 Body mass index (BMI) [Ratio] 36.48 kg/m2 Zoila Panda SEW ON OPERATOR Work Phone: [facility] 05-02-2024 15:27-0400 Body weight 112.04 kg Zoila Panda SEW ON OPERATOR Work Phone: [facility] 05-02-2024 15:27-0400 Diastolic blood pressure 92 mm[Hg] Zoila Panda SEW ON OPERATOR Work Phone: [facility] 05-02-2024 15:27-0400 Heart rate 72 /min Zoila Panda SEW ON OPERATOR Work Phone: [facility] 05-02-2024 15:27-0400 SaO2% (BldA) [Mass fraction] 95 % Zoila Panda SEW ON OPERATOR Work Phone: [facility] 05-02-2024 15:27-0400 Systolic blood pressure 140 mm[Hg] Zoila Mosqueda NP Work Phone: [facility] 10-30-2023 13:10-0400 Diastolic blood pressure 86 mm[Hg] MD Spencer Mast Work Phone: [facility] 10-30-2023 13:10-0400 Heart rate 62 /min MD Spencer Mast Work Phone: [facility] 10-30-2023 13:10-0400 Respiratory rate 16 /min MD Spencer Mast Work Phone: [facility] 10-30-2023 13:10-0400 SaO2% (BldA) [Mass fraction] 98 % MD Spencer Mast Work Phone: [facility] 10-30-2023 13:10-0400 Systolic blood pressure 140 mm[Hg] MD Spencer Msat Work Phone: [facility] 10-30-2023 12:40-0400 Inhaled oxygen flow rate 6 L/min MD Spencer Mast Work Phone: [facility] 10-30-2023 12:25-0400 Body height 175.26 cm MD Spencer Mast Work Phone: [facility] 10-30-2023 12:25-0400 Body mass index (BMI) [Ratio] 34.9 kg/m2 MD Spencer Mast Work Phone: [facility] 10-30-2023 12:25-0400 Body weight 107.5 kg MD Spencer Mast Work Phone: [facility] 10-30-2023 10:15-0400 Body temperature 97.7 [degF] MD Spencer Mast Work Phone: [facility] 08-31-2023 15:03-0500 Body height 175.26 cm MD Spencer Mast Work Phone: [facility] 08-31-2023 15:03-0500 Body mass index (BMI) [Ratio] 34.9 kg/m2 MD Spencer Mast Work Phone: [facility] 08-31-2023 15:03-0500 Body weight 107.5 kg MD Spencer Mast Work Phone: [facility] 08-29-2023 11:25-0500 Body mass index (BMI) [Ratio] 35.12 kg/m2 Zoila Mosqueda SEW ON OPERATOR Work Phone: [facility] 08-29-2023 11:25-0500 Body weight 107.86 kg Zoila Mosqueda SEW ON OPERATOR Work Phone: [facility] 08-29-2023 11:25-0500 Diastolic blood pressure 83 mm[Hg] Zoila Mosqueda SEW ON OPERATOR Work Phone: [facility] 08-29-2023 11:25-0500 Heart rate 70 /min Zoila Mosqueda SEW ON OPERATOR Work Phone: [facility] 08-29-2023 11:25-0500 Respiratory rate 14 /min Zoila Panda SEW ON OPERATOR Work Phone: [facility] 08-29-2023 11:25-0500 SaO2% (BldA) [Mass fraction] 95 % Zoilaindio Mosqueda SEW ON OPERATOR Work Phone: [facility] 08-29-2023 11:25-0500 Systolic blood pressure 140 mm[Hg] Zoila Mosqueda SEW ON OPERATOR Work Phone: [facility] 08-02-2023 09:05-0500 Body height 175.26 cm Leidy Jamison Other [facility] 08-02-2023 09:05-0500 Body mass index (BMI) [Ratio] 35.47 kg/m2 Leidy Jamison Other [employer] Other 08-02-2023 09:05-0500 Body temperature 97.1 [degF] Leidy Jamison Other [employer] Other 08-02-2023 09:05-0500 Body weight 108.95 kg Leidy Jamison Other [facility] 08-02-2023 09:05-0500 Diastolic blood pressure 74 mm[Hg] Leidy Nerimond Other [facility] 08-02-2023 09:05-0500 Respiratory rate 18 /min Leidy Nerimond Other [facility] Other 08-02-2023 09:05-0500 SaO2% (BldA) [Mass fraction] 89 % Leidy Nerimond Other [facility] Other 08-02-2023 09:05-0500 Systolic blood pressure 122 mm[Hg] Leidy Nerimond Other [facility] 06-18-2021 13:30-0500 Diastolic blood pressure 80 mm[Hg] [employer] Work Phone: [facility] [employer] 250 DO Work Phone: 06-18-2021 13:30-0500 Systolic blood pressure 122 mm[Hg] [employer] [place] Work Phone: [facility] [employer] 250 DO Work Phone: 06-18-2021 13:28-0500 Body height 177.8 cm [employer] [place] Work Phone: [facility] [employer] 250 DO Work Phone: 06-18-2021 13:28-0500 Body mass index (BMI) [Ratio] 34.72 kg/m2 [employer] Work Phone: [facility] [employer] 250 DO Work Phone: 06-18-2021 13:28-0500 Body surface area Derived from formula 2.26 m2 [employer] Work Phone: [facility] 250 DO Work Phone: 06-18-2021 13:28-0500 Body weight 109.77 kg Rugen M [place] Work Phone: [facility] 250 DO Work Phone: 06-18-2021 13:28-0500 Diastolic blood pressure 72 mm[Hg] Rugen M Drummond Work Phone: [facility] 250 DO Work Phone: 06-18-2021 13:28-0500 Heart rate 78 /min Rugen M Pro Work Phone: [facility] 250 DO Work Phone: 06-18-2021 13:28-0500 Systolic blood pressure 124 mm[Hg] Rugen M Drummond Work Phone: [facility] 250 DO Work Phone: 05-28-2021 14:21-0500 Diastolic blood pressure 98 mm[Hg] Rugen M Drummond Work Phone: [facility] 250 DO Work Phone: 05-28-2021 14:21-0500 Systolic blood pressure 160 mm[Hg] [employer] M [employer] Work Phone: [facility] 250 DO Work Phone: 05-28-2021 14:13-0500 Body height 177.8 cm Rugen M [place] Work Phone: [facility] 250 DO Work Phone: 05-28-2021 14:13-0500 Body mass index (BMI) [Ratio] 34.87 kg/m2 Rugen M Drummond Work Phone: [facility] 250 DO Work Phone: 05-28-2021 14:13-0500 Body surface area Derived from formula 2.27 m2 Spencer Jo [place] Work Phone: [facility] 250 DO Work Phone: 05-28-2021 14:13-0500 Body weight 110.22 kg Spencer Jo [employer] Work Phone: [facility] 250 DO Work Phone: 05-28-2021 14:13-0500 Diastolic blood pressure 108 mm[Hg] Spencer Jo [place] Work Phone: [facility] 250 DO Work Phone: 05-28-2021 14:13-0500 Heart rate 71 /min Spencer Jo [place]mond Work Phone: [facility] 250 DO Work Phone: 05-28-2021 14:13-0500 Systolic blood pressure 162 mm[Hg] Spencer Jo [employer] Work Phone: [facility] 250 DO Work Phone: Encounters Encounter Date Encounter Type Care Provider Facility Start: 02-07-2025 End: 02-07-2025 Clinisync Result Encounter Generic External Data Provider [facility] External Department Unsolicited Start: 02-07-2025 End: 02-07-2025 Clinisync Result Encounter Generic External Data Provider [facility] External Department Unsolicited Start: 01-06-2025 End: 01-06-2025 [facility] Start: 12-18-2024 End: 12-19-2024 Clinisync Result [...] Department Unsolicited Start: 12-12-2024 End: [facility] MUSA [facility] Start: 11-29-2024 End: 11-29-2024 ambulatory CASTINGS TRIMMER REBEKAH [facility] Start: 11-26-2024 End: 11-26-2024 Bamboo flowsheet Zoila Mosqueda SEW ON OPERATOR Work Phone: [facility] Start: 11-26-2024 End: 11-26-2024 Bamboo flowsheet Zoila Mosqueda SEW ON OPERATOR Work Phone: [facility] Start: 11-26-2024 End: 11-26-2024 Office outpatient visit 15 minutes Zoila Mosqueda SEW ON OPERATOR Work Phone: [facility] Comment on above: Insomnia, unspecifie d type (Primary Dx); Type 2 diabetes mellitus with hyperglycemia, unspecified whether alf insulin use ([facility]); Flatulence Start: 11-26-2024 End: 11-26-2024 ambulatory ZOILA MOSQUEDA Not Available Start: 11-22-2024 End: 11-22-2024 Clinisync Result Encounter Generic External Data Provider [facility] External Department Unsolicited Start: 11-22-2024 End: 11-22-2024 Clinisync Result Encounter Generic External Data Provider [facility] External Department Unsolicited Start: 11-13-2024 End: 11-13-2024 ambulatory NIKKO GIFFORDIDER [facility] Start: 11-08-2024 End: 11-08-2024 Clinisync Result [...] Unsolicited Start: 10-04-2024 End: 10-04-2024 ambulatory NIKKO ROCHE [facility] Start: 09-12-2024 End: 09-12-2024 ambulatory Spencer Mast MD Work Phone: [facility] Work Phone: Start: 09-12-2024 End: 09-12-2024 Patient encounter procedure Spencer Mast MD Work Phone: [facility] Work Phone: Start: 09-05-2024 End: 09-16-2024 Telephone encounter Oziel Arellano PT Work Phone: [facility] Comment [...] contact.) Start: 08-26-2024 End: 08-26-2024 ambulatory Oziel Arellano PT Work Phone: [facility] Comment on above: Strain of right shou lder, initial encounter (Primary Dx) Start: 08-26-2024 End: 08-26-2024 Bamboo flowsheet Oziel Arellano PT Work Phone: [facility] Start: 08-26-2024 End: 08-26-2024 Bamboo flowsheet Oziel Arellano PT Work Phone: [facility] Start: 08-19-2024 End: 08-20-2024 ambulatory Oziel Arellano PT Work Phone: [facility] Comment on above: Strain of right shou lder, initial encounter (Primary Dx) Start: 08-19-2024 End: 08-19-2024 Bamboo flowsroyce Arellano PT Work Phone: [facility] Start: 08-19-2024 End: 08-19-2024 Bamboo flowsheet Oziel Arellnao PT Work Phone: [facility] Start: 08-15-2024 End: 08-16-2024 ambulatory Oziel T Groverayo PT Work Phone: [facility] Comment on above: Strain of right shou lder, initial encounter (Primary Dx) Start: 08-15-2024 End: 08-15-2024 Bamboo flowsheet Oziel Savage Groverayo PT Work Phone: [facility] Start: 08-15-2024 End: 08-15-2024 Bamboo flowsheet Oziel Savage Groverayo PT Work Phone: [facility] Start: 08-14-2024 End: 08-14-2024 ambulatory Spencer Mast MD Work Phone: [facility] Work Phone: Start: 08-14-2024 End: 08-14-2024 Patient encounter procedure Spencer Mast MD Work Phone: [facility] Work Phone: Start: 08-12-2024 End: 08-13-2024 ambulatory Jethro Brink CUPOLA MELTER [facility] Comment on above: Strain of right shou lder, initial encounter (Primary Dx) Start: 08-12-2024 End: 08-12-2024 Bamboo flowsheet Jethro Brink CUPOLA MELTER [facility] Start: 08-12-2024 End: 08-12-2024 Bamboo flowsheet Jethro Brink CUPOLA MELTER [facility] Start: 08-08-2024 End: 08-08-2024 ambulatory OZIEL Favio EILEEN Not Available Start: 08-08-2024 End: 08-08-2024 Bamboo flowsheet Oziel Favio Eileen PT Work Phone: [facility] Start: 08-08-2024 End: 08-08-2024 Bamboo flowsheet Oziel Arellano PT Work Phone: [facility] Start: 08-08-2024 End: 08-08-2024 ambulatory Spencer Mast MD Work Phone: [facility] Work Phone: Comment on above: Strain of right shou lder, initial encounter (Primary Dx) Start: 08-08-2024 End: 08-08-2024 Patient encounter procedure Spencer Mast MD Work Phone: [facility] Work Phone: Start: 08-06-2024 End: 08-07-2024 ambulatory Oziel Arellano PT Work Phone: [facility] Comment on above: Strain of right shou lder, initial encounter (Primary Dx) Start: 08-06-2024 End: 08-06-2024 Bamboo flowsheet Oziel Arellano PT Work Phone: [facility] Start: 08-06-2024 End: 08-06-2024 Bamboo flowsroyce Arellano PT Work Phone: [facility] Start: 08-01-2024 End: 08-01-2024 Office outpatient visit 25 minutes Zoila Mosqueda SEW ON OPERATOR Work Phone: [facility] Comment on above: Laryngitis (Primary Dx); Type 2 diabetes mellitus with hyperglycemia (CMS/HCC); Type 2 diabetes mellitus with diabetic chronic kidney disease (CMS/HCC); Chronic kidney disease, stage 3a (HCC) (CMS/HCC); Morbid (severe) obesity due to excess calories (CMS/HCC); Essential (primary) hypertension (CMS/HCC); Body mass index (BMI) 38.0-38.9, adult; Pulmonary hypertension, unspecified (CMS/HCC) Start: 08-01-2024 End: 08-01-2024 ambulatory ZOILA MOSQUEDA Not Available Start: 08-01-2024 End: 01-16-2025 Bamboo flowsheet Zoila Mosqueda SEW ON OPERATOR Work Phone: [facility] Start: 08-01-2024 End: 08-01-2024 Bamboo flowsheet Zoila Mosqueda SEW ON OPERATOR Work Phone: [facility] Start: 07-26-2024 End: 07-26-2024 ambulatory Spencer Mast MD Work Phone: [facility] Work Phone: Start: 07-26-2024 End: 07-26-2024 Patient encounter procedure Spencer Mast MD Work Phone: [facility] [address] Work Phone: Start: 07-25-2024 End: 07-25-2024 ambulatory Darryl Mic CUPOLA MELTER [facility] Comment on above: Strain of right shou lder, initial encounter (Primary Dx) Start: 07-23-2024 End: 07-23-2024 ambulatory Darryl Moncada CUPOLA MELTER [facility] Comment on above: Strain of right shou lder, initial encounter (Primary Dx) Start: 07-23-2024 End: 07-23-2024 Bamboo flowsheet Darryl Moncada CUPOLA MELTER [facility] Start: 07-23-2024 End: 07-23-2024 Bamboo flowsheet Darryl Moncada CUPOLA MELTER [facility] Start: 07-22-2024 End: 07-22-2024 Patient encounter procedure Spencer Mast MD Work Phone: [facility] Work Phone: Start: 07-22-2024 End: 07-22-2024 ambulatory Spencer Mast MD Work Phone: [facility] Work Phone: Start: 07-18-2024 End: 07-18-2024 Bamboo flowsheet Leidy Jacome PT Work Phone: [facility] Start: 07-18-2024 End: 07-18-2024 Bamboo flowsheet Leidy Jacome PT Work Phone: [facility] Start: 07-18-2024 End: 07-18-2024 ambulatory Leidy Mace Jacome PT Work Phone: [facility] Comment on above: Strain of right shou lder, initial encounter (Primary Dx) Start: 07-11-2024 End: 07-11-2024 Bamboo flowsheet Jethro Brink CUPOLA MELTER [facility] Start: 07-11-2024 End: 07-11-2024 Bamboo flowsheet Jethro Brink CUPOLA MELTER [facility] Start: 07-11-2024 End: 07-11-2024 ambulatory Jethro Brink CUPOLA MELTER [facility] Comment on above: Strain of right shou lder, initial encounter (Primary Dx) Start: 07-09-2024 End: 07-09-2024 Bamboo flowsheet Oziel Arellano PT Work Phone: [facility] Start: 07-09-2024 End: 07-09-2024 Bamboo flowsheet Oziel rAellano PT Work Phone: [facility] Start: 07-09-2024 End: 07-09-2024 ambulatory Oziel Arellano PT Work Phone: [facility] Comment on above: Strain of right shou lder, initial encounter (Primary Dx) Start: 07-05-2024 End: 07-08-2024 Telephone encounter Oziel Arellano PT Work Phone: [facility] Comment on above: PT thru C-9 Start: 07-04-2024 End: 07-04-2024 ambulatory Spencer Mast Facility:[facility] Start: 07-04-2024 End: 07-04-2024 Patient encounter procedure Spencer Mast MD Work Phone: [facility] [address] Work Phone: Start: 06-25-2024 End: 06-25-2024 Patient encounter procedure Spencer Mast MD Work Phone: [facility] [address] Work Phone: Start: 06-25-2024 End: 06-25-2024 ambulatory Spencer Mast Facility:[facility] Start: 06-20-2024 End: 06-20-2024 Office outpatient visit 25 minutes Zoila Mosqueda SEW ON OPERATOR Work Phone: [facility] Comment on above: Laryngitis (Primary Dx) Start: 06-20-2024 End: 06-20-2024 ambulatory ZOILA MOSQUEDA Not Available Start: 06-20-2024 End: 06-20-2024 Bamboo flowsheet Zoila Mosqueda SEW ON OPERATOR Work Phone: [facility] Start: 06-20-2024 End: 06-20-2024 Bamboo flowsheet Zoila Mosqueda SEW ON OPERATOR Work Phone: [facility] Start: 05-02-2024 End: 05-02-2024 Office outpatient visit 25 minutes Zoila Mosqueda SEW ON OPERATOR Work Phone: [facility] Comment on above: Laryngitis, acute (P rimary Dx); Acute pain of right knee Start: 05-02-2024 End: 05-02-2024 ambulatory ZOILA MOSQUEDA Not Available Start: 03-13-2024 End: 03-13-2024 ambulatory [facility] Work Phone: Start: 03-13-2024 End: 03-13-2024 Patient encounter procedure [facility] Work Phone: Start: 03-06-2024 End: 03-06-2024 ambulatory [facility] Work Phone: Start: 03-06-2024 End: 03-06-2024 Patient encounter procedure [facility] Work Phone: Start: 02-26-2024 End: 02-26-2024 ambulatory [facility] Start: 02-13-2024 End: 02-13-2024 ambulatory ZOILA MOSQUEDA Not Available Start: 01-25-2024 End: 01-25-2024 ambulatory ZOILA MOSQUEDA Not Available Start: 01-16-2024 End: 01-16-2024 ambulatory ZOILA MOSQUEDA Not Available Start: 01-09-2024 End: 01-09-2024 ambulatory ZOILA MOSQUEDA Not Available Start: 12-13-2023 End: 12-13-2023 ambulatory ZOILA MOSQUEDA Not Available Start: 12-06-2023 End: 12-06-2023 ambulatory ZOILA MOSQUEDA Not Available Start: 11-29-2023 End: 11-29-2023 ambulatory ZOILA MOSQUEDA Not Available Start: 10-30-2023 End: 10-30-2023 Admission to same day surgery center MD Spencer Mast Work Phone: [facility] [place] Start: 10-30-2023 End: 10-30-2023 ambulatory MD Spencer Mast Work Phone: [facility] Work Phone: Start: 08-31-2023 End: 08-31-2023 ambulatory MD Spencer Mast Work Phone: [facility] Work Phone: Start: 08-31-2023 End: 08-31-2023 Patient encounter procedure MD Spencer Mast Work Phone: [facility] Work Phone: Start: 08-31-2023 End: 08-31-2023 Patient encounter procedure MD Spencer Mast Work Phone: [facility] [place] [facility] Start: 08-31-2023 End: 08-31-2023 ambulatory MD Spencer Mast Work Phone: [facility] Work Phone: Start: 08-29-2023 Chart abstracting Zoila Deysi Josefa pan SEW ON OPERATOR Work Phone: [facility] Start: 08-29-2023 End: 08-29-2023 Office outpatient visit 25 minutes Zoila Mosqueda SEW ON OPERATOR Work Phone: [facility] Comment on above: Bronchitis (Primary Dx); Left non-suppurative otitis media Start: 08-02-2023 (URG) Urgent Care Visit Leidy paniagua [facility] [place] Start: 08-02-2023 End: 08-02-2023 ambulatory Leidy Jamison Other [facility] Other Start: 08-02-2023 Telephone encounter Leidy Jamison [facility] [place] Start: 08-02-2023 End: 08-02-2023 Patient encounter procedure MD Spencer Mast Work Phone: [facility]- Start: 09-08-2022 End: [...] 06-18-2021 Office outpatient vi sit 15 minutes Spencer Mast Work Phone: [facility] [address] DO Work Phone: Start: 06-16-2021 NURSEVST, Provider: KAREN MORRIS LAND COMMISSIONER 1,[id number], Status: Pen, Time: 1:00 PM Spencer Watkinsa Work Phone: [facility] [address] DO Work Phone: Start: 06-14-2021 Chart Update Spencer Jo Pro Work Phone: [facility] [address] DO Work Phone: Start: 05-28-2021 Office consultation new/estab patient 60 min Spencer Mast Work Phone: [facility] [address] DO Work Phone: Start: 05-28-2021 Patient encounter procedure Spenecr Jo Pro Work Phone: [facility] [address] DO Work Phone: Start: 08-30-2016 End: 08-31-2016 Ambulatory DEFAULT PHYSICIAN Facility:[facility] Procedures Date Procedure Procedure Detail Performing Clinician Start: 02-07-2025 HMHP CBC WITH PLATEL ET NO DIFFERENTIAL Generic External Data Provider Start: 12-18-2024 ITP Generic Ex ternal Data Provider Start: 12-13-2024 ITP Generic Ex ternal Data Provider Start: 11-26-2024 Hemoglobin glycosyla yohana a1c Zoila Mosqueda SEW ON OPERATOR Work Phone: Start: 11-22-2024 ALL BASIC METABOLIC PANEL Generic External Data Provider Start: 11-22-2024 ALL PRO BNP Generic Ex ternal Data Provider Start: 11-08-2024 CA ECHO DOPPLER COMPLETE Generic External Data Provider Start: 10-11-2024 ALL BASIC METABOLIC PANEL Generic External Data Provider Start: 10-11-2024 ALL PRO BNP Generic Ex ternal Data Provider Start: 07-22-2024 MRI of right shoulder R kaelyn Mast MD Work Phone: Start: 06-25-2024 Plain X-ray of right shoulder Spencer Mast MD Work Phone: Start: 11-03-2023 Colonoscopy Zoila pan SEW ON OPERATOR Work Phone: Start: 10-30-2023 Colonoscopy MD Spencer [...] Screening for malign ant neoplasm of colon [facility] Start: 08-20-2026 Screening for malign ant neoplasm of colon FIT-DNA [facility] Start: 06-16-2025 Influenza vaccination [facility] Comment on above: Postponed from 03/17 (Other Medical Reasons) Postponed from 03/17 (Other Medical Reasons) Start: 03-17-2025 Influenza vaccination Influenza Vacc ine (#1) [facility] Start: 02-26-2025 Hemoglobin A1c measurement Diabetes: Hemoglobin A1C [facility] Start: 02-26-2025 End: 02-26-2025 Patient encounter procedure 02/26/2025 11:30 AM EDT Office Visit [facility] [address] [place] [id number] Zoila Mosqueda, SEW ON OPERATOR [address] [place] [address] [facility] Start: 01-10-2025 Urine screening for protein Diabetes: Urine Protein Screening [facility] Start: 11-26-2024 End: 11-26-2024 Patient encounter procedure [facility] Comment on above: Arrived Start: 11-08-2024 Urine screening for protein Diabetes: Urine Protein Screening [facility] Start: 08-28-2024 End: 08-28-2024 ambulatory 08/28/2024 5:00 PM EST Treatment [facility] [address] [place] [address] Jethro Ware PTA [facility] Start: 08-26-2024 End: 08-26-2024 ambulatory 08/26/2024 4:30 PM EST Treatment [facility] [address] [place] [address] Oziel Arellano, PT [address] [place] [address] Arrived [facility] Comment on above: Arrived Start: 08-21-2024 End: 08-21-2024 ambulatory 08/21/2024 4:00 PM EST Treatment [facility] [address] [place] [address] Oziel Arellano, PT [address] [place] [address] [facility] Start: 08-19-2024 End: 08-19-2024 [...] [address] [place] [address] Zoila Mosqueda, SEW ON OPERATOR [address] [place] [address] Arrived [facility] Comment on above: Arrived Start: 07-25-2024 End: 07-25-2024 ambulatory 07/25/2024 2:30 PM EST Treatment [facility] [address] [place] [address] Darryl Moncada, CUPOLA MELTER [facility] Start: 07-23-2024 End: 07-23-2024 [...] [address] [place] [address] Petty Jimenez, JACINDA [facility] Start: 07-11-2024 End: 07-11-2024 ambulatory [facility] Comment on above: Strain of right shou lder, initial encounter (Primary Dx) Start: 07-09-2024 End: 07-09-2024 ambulatory 07/09/2024 8:30 AM EST Evaluation [facility] [address] [place] [address] Oziel Arellano, PT [address] [place] [address] [facility] Start: 06-20-2024 End: 06-20-2024 Patient encounter procedure 06/20/2024 4:30 PM EST Office Visit [facility] [address] [place] [address] Zoila Mosqueda, SEW ON OPERATOR [address] [place] [address] Arrived [facility] Comment on above: [...] [address] [place] [address] Zoila Mosqueda NP [address] [place] [address] [facility] Start: 03-06-2024 Patient referral [facility] Work Phone: Start: 01-14-2024 Influenza vaccination Influenza Vacc ine (#1) [facility] Comment on above: Postponed from 03/17 (Other Patient Reasons) Start: 10-30-2023 [facility] Start: 10-04-2023 Hemoglobin A1c measurement Diabetes: Hemoglobin A1C [facility] Start: 09-04-2023 End: 09-04-2023 Patient encounter procedure 09/04/2023 2:30 PM EST Office Visit [facility] [address] [place] [address] Spencer Mast MD [address] [place] [address] [facility] Start: 08-29-2023 End: 08-29-2023 Patient encounter procedure 08/29/2023 11:30 AM EST Office Visit [facility] [address] [place] [address] Zoila Mosqueda NP [address] [place] [address] [facility] Start: 01-21-2022 Screening for malign ant neoplasm of colon [facility] Start: 12-29-2021 FUV, Provider: Juanito Peterson, Status: Pen, Time: 1:40 PM FUV, Provider: Juanito Peterson, Status: Pen, Time: 1:40 PM [facility] [address] DO Work Phone: Start: 08-25-2021 FUV, Provider: Juanito Peterson, Status: Pen, Time: 1:30 PM FUV, Provider: Juanito Peterson, Status: Pen, Time: 1:30 PM [facility] [facility] DO Work Phone: Start: 06-16-2021 NURSEVST, Provider: KAREN MORRIS LAND COMMISSIONER 1,[id number], Status: Pen, Time: 1:00 PM NURSEVST, Provider: KAREN MORRIS LAND COMMISSIONER 1,[id number], Status: Pen, Time: 1:00 PM [facility] 250 DO Work Phone: Start: 1972 Pneumococcal Vaccine : 65+ Years (1 of 2 - PCV) Pneumococcal Vaccine: 65+ Years (1 of 2 - PCV) [facility] Start: 1959 Pneumococcal Vaccine : 65+ Years (1 of 2 - PCV) Pneumococcal Vaccine: 65+ Years (1 of 2 - PCV) [facility] Start: 1953 Screening for malign ant neoplasm of colon [facility] Patient Education Colonoscopy (D C) Colon Polypectomy (DC) [facility] Work Phone: Patient referral [facility] Work Phone: Immunizations Immunization Date Immunization Notes Care Provider Ousmane uribe 11-11-2020 Pfizer-BioNTech COVI D-19 Vacc 30 MCG/0.3ML Intramuscular Suspension Rugen M Pro Work Phone: [facility] 250 DO Work Phone: 10-21-2020 Pfizer-BioNTech COVI D-19 Vacc 30 MCG/0.3ML Intramuscular Suspension Rugen M Pro Work Phone: [facility] [address] DO Work Phone: Payers Date Payer Category Payer Medicare (Managed Care) [facility] [id number] 2024 Medicare [id number] 2024 Medicare [id number] 2024 Unknown [id number] 2024 Worker's Compensation [id number] 2024 Worker's Compensation 1.2.84 [id number] 2023 Self-pay [id number] 2017 Blue Cross Blue Shield 1.2.8 [id number] 2017 Unknown 2017 Unknown [id number] 1959 Unknown [id number] 1953 Unknown [id number] 2.16.840.1.869915.3.579.2. 593 1953 Unknown [id number] 2.16.840.1.846435.3.579.2. 593 1953 Unknown [id number] 2.16.840.1.973423.3.579.2. 593 1953 Unknown [id number] 2.16.840.1.191741.3.579.2. 593 1953 Unknown [id number] 2.16.840.1.422504.3.579.2. 593 1953 Unknown [id number] 2.16.840.1.367342.3.579.2. 593 1953 Unknown [id number] 2.16.840.1.969266.3.579.2. 593 1953 Unknown [id number] 2.16.840.1.006959.3.579.2. 1259 1953 Unknown [id number] 2.16.840.1.493726.3.579.2. 1259 1953 Unknown [id number] 2.16.840.1.329292.3.579.2. 1259 1953 Unknown [id number] 2.16.840.1.319576.3.579.2. 1259 1953 Unknown [id number] 2.16.840.1.391170.3.579.2. 1259 1953 Unknown [id number] 2.16.840.1.653239.3.579.2. 1259 1953 Unknown [id number] 2.16.840.1.217634.3.579.2. 1259 1953 Unknown [id number] 2.16.840.1.350369.3.579.2. 1259 1953 Unknown [id number] 2.16.840.1.793066.3.579.2. 1259 1953 Unknown [id number] 2.16.840.1.755642.3.579.2. 1259 1953 Unknown [id number] 2.16.840.1.915308.3.579.2. 1259 1953 Unknown [id number] 2.16.840.1.391078.3.579.2. 1259 1953 Unknown [id number] 2.16.840.1.126547.3.579.2. 1258 1953 Unknown [id number] 2.16.840.1.972604.3.579.2. 125 1953 Unknown [id number] 2.16.840.1.287628.3.579.2. 1258 1953 Unknown [id number] 2.16.840.1.874707.3.579.2. 1258 1953 Unknown [id number] 2.16.840.1.482412.3.579.2. 1258 1953 Unknown [id number] 2.16.840.1.192638.3.579.2. 1258 1953 Unknown [id number] 2.16.840.1.830252.3.579.2. 1258 1953 Unknown [id number] 2.16.840.1.611231.3.579.2. 1258 1953 Unknown [id number] 2.16.840.1.997369.3.579.2. 1258 1953 Unknown [id number] 2.16.840.1.175009.3.579.2. 1258 1953 Unknown [id number] 2.16.840.1.205751.3.579.2. 1258 1953 Unknown [id number] 2.16.840.1.301368.3.579.2. 1258 1953 Unknown [id number] 2.16.840.1.863331.3.579.2. 1258 1953 Unknown [id number] 2.16.840.1.306776.3.579.2. 125 1953 Unknown [id number] 2.16.840.1.633903.3.579.2. 1258 1953 Unknown [id number] 2.16.840.1.046645.3.579.2. 1259 1953 Unknown [id number] 2.16.840.1.694325.3.579.2. 1259 1953 Unknown [id number] 2.16.840.1.082358.3.579.2. 1259 1953 Unknown [id number] 2.16.840.1.167088.3.579.2. 1259 1953 Unknown [id number] 2.16.840.1.580400.3.579.2. 1259 1953 Unknown [id number] 2.16.840.1.163540.3.579.2. 9 1953 Unknown [id number] 2.16.840.1.889303.3.579.2. 1259 1953 Unknown [id number] 2.16.840.1.492951.3.579.2. 1259 Unknown [facility] [id number] Unknown [id number] 2.16.840.1.206800.3.579.2. 531 Unknown [id number] 2.16.840.1.018707.3.579.2. 531 Unknown [id number] 2.16.840.1.948679.3.579.2. 531 Unknown [id number] 2.16.840.1.488545.3.579.2. 531 Unknown [id number] 2.16.840.1.023605.3.579.2. 531 Unknown [id number] 2.16.840.1.093900.3.579.2. 531 Social History Date Type Detail Facility Start: 08-07-2023 End: 11-26-2024 No illicit drug use No illicit drug use [place] [address] DO Work Phone: Comment on above: Quit 43 years ago; Start: 08-07-2023 End: 11-26-2024 Sex Assigned At [facility] Other Start: 02-14-2023 Tobacco smoking status INIS Never smoked tobacco [facility] Start: 02-14-2023 Tobacco use and exposure Smokeless tobacco non-user [facility] Start: 08-07-2023 End: 11-26-2024 Alcohol intake Lifetime non-drinker (finding) [facility] Start: 1955 Sex Assigned At Not on file N [facility] Start: 08-02-2023 End: 10-30-2023 Tobacco smoking status INIS Ex-smoker (finding) [facility] Start: 1955 Sex Assigned At Male F [facility] Start: 07-23-2024 End: 09-12-2024 Sex Male (finding) [facility] Goals Date Patient Goal Desired Activity /State Functional Status Date Assessment Result Facility 11-26-2024 Patient Health Quest ionnaire 2 item (PHQ-2) [Reported] [facility] Clinical Notes 05-27-2021 to 01-06-2025 Zoila Mosqueda NP - 11/26/2024 9:00 AM EDTTelephone Encounter - Abeba Garcia - 09/16/2024 11:13 AM ESTTele[facility]16[facility] 11:13 AM EST Note Date & Type Note Facility 01-06-2025 Note Cardiac Electrophysi ology Consultation Reason for Consult: Atrial fibrillation, prior electrical cardioversion Referring Yard Laborer/PCP: No ref. provider found HPI: Lisa is [...] syncope/presyncope. Electrophysiology History: Early persistent atrial fibrillation, [id number] score of 5 based on age, hypertension, [...] Value Ventricular Rate 62 Atrial Rate 62 ME Interval 168 QRS DURATION 92 QT Interval 476 QTC CALCULATION(BAZETT) 483 P [place] 74 R-[place] 21 T Wave [place] -15 Impression Sinus rhythm with occasional Premature ventricular complexes Prolonged QT Abnormal ECG Compared to tracing of 29-NOV-2024 09:47 Sinus rhythm has replaced Atrial fibrillation Confirmed by Yvonne GRANGER, L.S. (2) on 11/29/2024 11:34:20 AM I personally reviewed this EKG and assessed the findings myself Transesophageal echo (CADEN) Result Date: 11/29/2024 1 [facility] Heart Station [address] [place] [address] [phone] (fax) Transesophageal Echocardiogram-[facility] Name: LISA FULLER Study Date: 11/29/2024 10:13 AM B/P: 164 mmHg/122 mmHg HR: Date of : 1955 Location: [facility] Height: 70 in. Age: 69 year(s) Patient Room: Weight: 257 lb. Gender: Male Patient Status: OutPt BSA: 2.32 m2 Indication: Atrial Fibrillation, Pre-cardioversion, Mitral regurgitation Examination: CADEN (Transesophageal Echo / CFI), Limited Doppler Image Quality: Adequate Patient Consent: Informed, written consent was obtained for the procedure Examination: A CADEN was performed without complications Exam Location: A CADEN was performed in the Web Development Manager without complications Anesthesia Pharyngeal anesthesia with viscous [...] is normal si (more content not included)... [facility] 12-12-2024 Note [facility] Cardiology Clinic Note Chief Complaint: Patient here for follow up s/p CADEN and DCCV. Patient states he is feeling good. No cardiac complaints. Patient patient seen Nephrology. Patient was given a blood pressure pill by nephrology. HPI: Lisa Fuller is a 69 y.o. male Who has [...] kidney disease, Coronary artery disease, Diabetes mellitus ([facility]/HCC), Hypertension, and Sleep apnea. Surgical History He [...] saphenous vein fro (more content not included)... [facility] 11-29-2024 Note Patient: Lisa locke Procedure Information Date/Time: 11/29/24 1035 Procedure: Cardioversion - PC APPROVED Location: [facility] ROOM / [facility] (Cath) Providers: Musa Menjivar MD Clinical information reviewed: Allergies Meds Physical Exam Airway Mallampati: III TM distance: >3 FB Neck ROM: full Cardiovascular Rhythm: regular Rate: normal Dental Pulmonary Breath sounds clear to auscultation Abdominal Anesthesia Plan ASA 3 other (Conscious sedation.) Anesthetic plan and risks discussed with patient. Use of blood products discussed with patient who consented to blood products. Additional Equipment Requests [facility] 11-26-2024 History of Present illness Narrative Images from the original note were not included. Subjective Patient ID: Lisa Fuller is a 69 y.o. 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 [...] follow-ups on file. documented in this encounter [facility] 11-13-2024 Note SUBJECTIVE Reason for Visit: Lisa Fuller is a 69 y.o. year old male patient being seen for 3 week follow-up visit. HPI: Lisa Fuller is a 69 y.o. year old male with significant medical history of CAD status post CABG 2015, hypertension, CKD ( initially seen [place] [address] Goff), CELESTINA, obesity, DM, and palpitations. 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 He otherwise denies chest pain, palpitations, [...] soft. Musculoskeletal: Inspect (more content not included)... [facility] 10-04-2024 Note SUBJECTIVE Reason for Visit: Lisa Fuller Sr. is a 69 y.o. year old male patient being seen for follow-up visit. HPI: Lisa Fuller Sr. is a 69 y.o. year old male with past medical history of CAD status post CABG, hypertension, CKD, CELESTINA, obesity, and palpitations. 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 He otherwise denies chest pain, palpitations, [...] evening lisinopril 4 (more content not included)... [facility] 09-16-2024 Telephone encounter Note 4 attempts w/ no contact; unable to lm. [facility] 09-16-2024 Miscellaneous Notes 4 attempts w/ no [...] for more auth. documented in this encounter [facility] 09-10-2024 Telephone encounter Note 3 attempts unable to contact. [facility] 09-05-2024 Telephone encounter Note Tried to contact to note receiving ext of C-9 for the 1 visit to = 12 PT. I called and confirmed the ext date was for 1 remaining PT; I was told yes, and when that is used another request can be sent in for more auth. [facility] 08-26-2024 History of Present illness Narrative Images [...] Difficulty sleeping at night. No injection. Work: [employer] (still working but on light duty). Precautions: [...] to be instructed in home exercise program. 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 Date: documented in this encounter [facility] 08-19-2024 History of Present illness Narrative Images [...] Difficulty sleeping at night. No injection. Work: [employer] (still working but on light duty). Precautions: [...] to be instructed in home exercise program. 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 Date: documented in this encounter [facility] 08-15-2024 History of Present illness Narrative Images [...] Difficulty sleeping at night. No injection. Work: [employer] (still working but on light duty). Precautions: [...] sign below. Date: documented in this encounter [facility] 08-08-2024 History of Present illness Narrative Images [...] Difficulty sleeping at night. No injection. Work: [employer] (still working but on light duty). Precautions: [...] to be instructed in home exercise program. 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 Date: documented in this encounter [facility] 08-08-2024 Evaluation note Diagnosis Onset Date Resolution Strain of unspecified muscle, fascia and tendon at shoulder and upper arm l acute August 08 9:47am Superior glenoid labrum lesion of right shoulder, initial encounter acute August 08 9:47am [facility] Work Phone: 1(210) 770-553801-23-2025 Evaluation note* Diagnosis Onset Date Resolution Status [...] osteoarthritis of le ft knee acute September 12 8:15am Primary osteoarthritis of ri ght knee acute September 12 025 8:15am [facility] Work Phone: 1(900) 960-780301-21-2025 History of Present illness Narrative* Oziel Arellano, PT - 08/06/2024 4:30 PM EST Images [...] Difficulty sleeping at night. No injection. Work: [employer] (still working but on light duty). Precautions: [...] Please sign below. Date: documented in this encounterMadison Medical [id number] History of Present illness Narrative* Zoila Mosqueda, SEW ON OPERATOR - 08/01/2024 3:30 PM EST Images from the original note were not included. Subjective Patient ID: Lisa Fuller is a 69 y.o. male who presents [...] No follow-ups on file. documented in this encounterMadison Medical [id number] History of Present illness Narrative* Leidy Jacome, PT - 07/18/2024 8:00 AM EST Physical Therapy Treatment Visit Patient Name: Lisa Fuller Today's Date: 07/18/2024 Encounter Diagnoses Name Primary? [...] Difficulty sleeping at night. No injection. Work: [employer] (still working but on light duty). Precautions: [...] to be instructed in home exercise program. 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 Date: documented in this encounterMadison Medical [id number] History of Present illness Narrative* Oziel Arellano, PT - 07/09/2024 8:30 AM EST Physical Therapy Evaluation Visit Patient Name: Lisa Fuller Today's Date: 07/09/2024 Encounter Diagnoses Name Primary? [...] Difficulty sleeping at night. No injection. Work: [employer] (still working but on light duty). Precautions: open heart surgery 6 bypass (2016) Subjective Pain: 2-3/10 rest; 610 Objective: PT Evaluation (07/09/24) Right shoulder AROM: [...] to be instructed in home exercise program. 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 Date: documented in this encounterMadison Medical [id number] Telephone encounter Note* Telephone Encounter - Abeba Garcia - 07/08/2024 11:45 AM EST Scheduled him out to 07/18/24 w/ PT. [facility] [id number] Miscellaneous Notes* Telephone Encounter - Abeba Garcia - 07/08/2024 11:45 AM EST Scheduled him out to 07/18/24 w/ PT. * Telephone Encounter - Abeba Garcia - 07/05/2024 1:12 PM EST Tried to contact to set up PT, going thru [facility], w/ 12 visits dated out to 08/06/24. There was no answer and voicemail was full. documented in this encounterMadison Medical [id number] Telephone encounter Note* Telephone Encounter - Abeba Garcia - 07/05/2024 1:12 PM EST Tried to contact to set up PT, going thru [facility], w/ 12 visits dated out to 08/06/24. There was no answer and voicemail was full. [place] [id number] History of Present illness Narrative* Zoila Mosqueda, SEW ON OPERATOR - 06/20/2024 4:30 PM EST Images from the original note were not included. Subjective Patient ID: Lisa Fuller is a 69 y.o. male who presents [...] No follow-ups on file. documented in this encounterMadison Medical CenterFkzyxpfula01-15-1525 History of Present illness Narrative* Zoila Mosqueda NP - 05/02/2024 3:30 PM EDT Images from the original note were not included. Subjective Patient ID: Lisa Fuller is a 69 y.o. male who presents [...] No follow-ups on file. documented in this encounterMadison Medical [id number] Chief Complaint: [...] furosemide a few months ago. HPI: Lisa Fuller . is a 68 y.o. male Who [...] not taking his spirono (more content not included)...[facility]02-13-[facility]24 History of Present illness Narrative* Zoila Mosqueda, IBIS - 08/29/2023 11:30 AM EST Subjective Patient ID: Lisa Fuller is a 68 y.o. male who presents [...] Get plenty of rest. documented in this encounterMadison Medical [id number] Evaluation note* Encounter Date Diagnosis Assessment Notes Treatment Notes Treatment Clinical Notes Jul, Contact with and (suspected) exposure to covid-19 (ICD-10 - Z20.822) Jul, Influenza A (ICD-10 - J10.1) Patient left the urgent care prior to receiving the results of his PCR COVID, influenza, RSV testing. He was not seen by the provider. Will attempt to notify patient of his results. [employer] Other 12-03-2021 History of Present illness NarrativePatient [...] exercise and weight loss were reviewed with him.-[place] [employer] DO Work Phone: 1(179) 309-345411-11-2021 History of Present illness Narrative* Patient is [...] he will do the best he can. [employer] DO Work Phone: Evaluation noteNo InformationNort [employer]ian[employer] Other Evaluation note* Diagnosis Bronchitis- Primary Bronchitis, not specified as acute or chronic Left non-suppurative otitis media Nonsuppurative otitis media, not specified as acute or chronic documented [facility] encounter [facility]* Diagnosis Onset Date Resolution Status Bilateral primary osteoarthritis of knee acute Knee pain, left acute Knee pain, right acute [facility] Work Phone: Evaluation note* Diagnosis Onset Date Resolution Status Bilateral primary osteoarthritis of knee acute [facility] Work Phone: Evaluation note* Diagnosis Onset Date Resolution Status Bilateral primary osteoarthritis of knee acute Bilateral primary osteoarthritis of knee acute Chronic pain acute Knee pain, left acute Knee pain, right acute [facility] Work Phone: Evaluation note* Diagnosis Primary hypertension ([facility]/HCC)- Primary Unspecified essential hypertension 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) ([facility]) Influenza Influenza with other respiratory manifestations 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) ([facility])- Primary Abnormal glucose tolerance test Impaired glucose tolerance test Benign essential hypertension ([facility]/HCC) Essential hypertension, benign Type 2 diabetes mellitus with microalbuminuria, without long-term current use of insulin ([facility]) Primary hypertension ([facility]) Unspecified essential hypertension Type 2 diabetes mellitus with hyperglycemia, without long-term current use of insulin ([facility]) Pulmonary hypertension, unspecified (I27.20) Laryngitis, acute- Primary Acute laryngitis, without mention of obstruction Acute pain of right knee documented in this encounter [facility] HealthcareEvaluation note* Diagnosis Primary hypertension ([facility]/HCC)- Primary Unspecified essential hypertension 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) ([facility]/HCC) Influenza Influenza with other respiratory manifestations 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) ([facility])- Primary Abnormal glucose tolerance test Impaired glucose tolerance test Benign essential hypertension ([facility]/HCC) Essential hypertension, benign Type 2 diabetes mellitus with microalbuminuria, without long-term current use of insulin ([facility]/HCC) Primary hypertension ([facility]/HCC) Unspecified essential hypertension Type 2 diabetes mellitus with hyperglycemia, without long-term current use of insulin ([facility]) Pulmonary hypertension, unspecified (I27.20) Laryngitis- Primary Acute laryngitis, without mention of obstruction documented [facility]* Diagnosis Primary hypertension ([facility]/HCC)- Primary Unspecified essential hypertension 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) ([facility]) Influenza Influenza with other respiratory manifestations 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) ([facility]/HCC)- Primary Abnormal glucose tolerance test Impaired glucose tolerance test Benign essential hypertension ([facility]/HCC) Essential hypertension, benign Type 2 diabetes mellitus with microalbuminuria, without long-term current use of insulin (CMS/HCC) Primary hypertension ([facility]/HCC) Unspecified essential hypertension Type 2 diabetes mellitus with hyperglycemia, without long-term current use of insulin ([facility]/HCC) Pulmonary hypertension, unspecified (I27.20) Strain of right shoulder, initial encounter- Primary documented [facility]* Diagnosis Primary hypertension (CMS/HCC)- Primary Unspecified essential hypertension 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) ([facility]/HCC) Influenza Influenza with other respiratory manifestations 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) ([facility]/HCC)- Primary Abnormal glucose tolerance test Impaired glucose tolerance test Benign essential hypertension ([facility]/HCC) Essential hypertension, benign Type 2 diabetes mellitus with microalbuminuria, without long-term current use of insulin ([facility]/HCC) Primary hypertension ([facility]/HCC) Unspecified essential hypertension Type 2 diabetes mellitus with hyperglycemia, without long-term current use of insulin ([facility]) Pulmonary hypertension, unspecified (I27.20) Strain of right shoulder, initial encounter- Primary documented [facility]* Diagnosis Primary hypertension ([facility]/HCC)- Primary Unspecified essential hypertension 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) ([facility]/HCC) Influenza Influenza with other respiratory manifestations 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) ([facility]/HCC)- Primary Abnormal glucose tolerance test Impaired glucose tolerance test Benign essential hypertension ([facility]/HCC) Essential hypertension, benign Type 2 diabetes mellitus with microalbuminuria, without long-term current use of insulin (CMS/HCC) Primary hypertension ([facility]/HCC) Unspecified essential hypertension Type 2 diabetes mellitus with hyperglycemia, without long-term current use of insulin ([facility]/HCC) Pulmonary hypertension, unspecified (I27.20) Strain of right shoulder, initial encounter- Primary documented [facility]* Diagnosis Primary hypertension ([facility]/HCC)- Primary Unspecified essential hypertension 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) ([facility]/HCC) Influenza Influenza with other respiratory manifestations 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) ([facility]/HCC)- Primary Abnormal glucose tolerance test Impaired [...] initial encounter- Primary documented in this encounter [facility] HealthcareEvaluation noteNo assessment information availablePremier Health [facility] Work Phone: Evaluation note* Diagnosis Primary [...] initial encounter- Primary documented in this encounter [facility] HealthcareEvaluation note* Diagnosis Primary hypertension (CMS/HCC)- Primary [...] of insulin (CMS/HCC) Pulmonary hypertension, unspecified (I27.20) Laryngitis- Primary Acute laryngitis, without mention of obstruction Type 2 diabetes mellitus with hyperglycemia (CMS/HCC) Type 2 diabetes mellitus with diabetic chronic kidney disease (CMS/HCC) Chronic kidney disease, stage 3a (HCC) (CMS/HCC) Morbid (severe) obesity due to excess calories (CMS/HCC) Essential (primary) hypertension ([facility]/HCC) Unspecified essential hypertension Body mass index (BMI) 38.0-38.9, adult Pulmonary hypertension, unspecified ([facility]/HCC) documented in this encounter [facility] HealthcareEvaluation note* Diagnosis Primary hypertension ([facility]/HCC)- Primary Unspecified essential hypertension 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) ([facility]) Influenza Influenza with other respiratory manifestations 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) ([facility])- Primary Abnormal glucose tolerance test Impaired glucose tolerance test Benign essential hypertension ([facility]/HCC) Essential hypertension, benign Type 2 diabetes mellitus with microalbuminuria, without long-term current use of insulin ([facility]) Primary hypertension ([facility]) Unspecified essential hypertension Type 2 diabetes mellitus with hyperglycemia, without long-term current use of insulin ([facility]) Pulmonary hypertension, unspecified (I27.20) Strain of right shoulder, initial encounter- Primary documented in this encounter [facility] HealthcareEvaluation note* Diagnosis Onset Date Resolution Status Admit Date Strain of unspecified muscle , fascia and tendon at shoulder and upper arm l acute August 08 9:47am Superior glenoid labrum lesi on of right shoulder, initial encounter acute August 08 9:47am [facility] Work Phone: Evaluation note* Diagnosis Primary hypertension ([facility]/HCC)- Primary Unspecified essential hypertension 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) ([facility]) Influenza Influenza with other respiratory manifestations 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) ([facility])- Primary Abnormal glucose tolerance test Impaired glucose tolerance test Benign essential hypertension ([facility]/HCC) Essential hypertension, benign Type 2 diabetes mellitus with microalbuminuria, without long-term current use of insulin ([facility]) Primary hypertension ([facility]/HCC) Unspecified essential hypertension Type 2 diabetes mellitus with hyperglycemia, without long-term current use of insulin ([facility]) Pulmonary hypertension, unspecified (I27.20) Strain of right shoulder, initial encounter- Primary documented in this encounter [facility] HealthcareEvaluation note* Diagnosis Primary hypertension ([facility]/HCC)- Primary Unspecified essential hypertension 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) ([facility]) Influenza Influenza with other respiratory manifestations 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) ([facility]/HCC)- Primary Abnormal glucose tolerance test Impaired glucose tolerance test Benign essential hypertension (CMS/HCC) Essential hypertension, benign Type 2 diabetes mellitus with microalbuminuria, without long-term current use of insulin (CMS/HCC) Primary hypertension (CMS/HCC) Unspecified essential hypertension Type 2 diabetes mellitus with hyperglycemia, without long-term current use of insulin (CMS/HCC) Pulmonary hypertension, unspecified (I27.20) Insomnia, unspecified type- Primary Type 2 diabetes mellitus with hyperglycemia, 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 (CMS/HCC) Flatulence Flatulence, eructation, and gas pain documented in this encounter [facility] HealthcareHistory general Narrative - Reported* Type Description Date Medical History HTN Medical History Arthritis Medical History Diabetes Medical History Hx of [place] Medical History Hyperlipidemia Medical History Coronary artery disease Surgical History Appendectomy Surgical History Arthroscopy, bilateral knees Surgical History Hernia Surgical History Left hand Surgical History heart bypass graft x 6 Surgical History cataract removal Hospitalization History See above [employer] Other Hospital Discharge instructionsAmbulatory Orders* Referral to Pain Management Time Frame: 03/06/24, Location: [facility] Work Phone: Reason for visit Narrative* Rehabilitation - Outpatient (Routine) - Authorized Specialty Diagnoses / Procedures Referred By Chivo savage Referred To Contact Physical Therapy Diagnoses Strain of unspecified muscle, fascia and tendon at shoulder and upper arm level, right arm, initial encounter Procedures ME PHYSICAL THERAPY EVALUATION LOW COMPLEX 20 MINS ME OFFICE/OUTPATIENT NEW HIGH MDM Leidy Bennett MD [address] [place] [id number] Phone: tel: fax: [facility] PT [address] [facility] [address] [place] [address] Phone: tel: fax: Referral ID Status Reason Start Date Expiration Date V isits Requested Visits Authorized [id number] Authorized 06/25/2024 08/06/2024 12 12 [facility] HealthcareReason for visit Narrative* Rehabilitation - Outpatient (Routine) - Authorized Specialty Diagnoses / Procedures Referred By Chivo savage Referred To Contact Physical Therapy Diagnoses Strain of unspecified muscle, fascia and tendon at shoulder and upper arm level, right arm, initial encounter Procedures ME PHYSICAL THERAPY EVALUATION LOW COMPLEX 20 MINS ME OFFICE/OUTPATIENT [facility] Leidy Fu MD [address] [place] [id number] Phone: tel: fax: [facility] [address] [facility] [address] [place] [address] Phone: tel: fax: Referral ID Status Reason Start Date Expiration Date V isits Requested Visits Authorized [id number] Authorized 06/25/2024 12 12 [facility] HealthcareReason for visit Narrative* Rehabilitation - Outpatient (Routine) - Authorized Specialty Diagnoses / Procedures Referred By Chivo savage Referred To Contact Physical Therapy Diagnoses Strain of unspecified muscle, fascia and tendon at shoulder and upper arm level, right arm, initial encounter Procedures ME PHYSICAL THERAPY EVALUATION LOW COMPLEX 20 MINS ME OFFICE/OUTPATIENT [facility] Leidy Fu MD [address] [place] [address] Phone: tel: fax: [facility] [address] [facility] [address] [place] [address] Phone: tel: fax: Referral ID Status Reason Start Date Expiration Date V isits Requested Visits Authorized [id number] Authorized 06/25/2024 08/30/2024 12 12 [facility] Healthcare Summary Purpose Family History No Family [...] June 19, 2017 11:54am Chief Complaint LISA FULLER is being seen for New Patient.LISA FULLER is being seen for New Patient.LISA FULLER is being seen for hypertension. Chief Complaint [...] of knee Chief Complaint 3 MONTHS CONSULT [facility] TEE KNEE PAIN Reason for Visit Bilateral primary os teoarthritis of knee Bilateral primary osteoarthritis of knee Chronic pain Knee pain, left Knee pain, right Chief Complaint Admit Date S4June 25, 2024 11:08am S46July 04, 2024 2:30pm s4July 22, 2024 5: 28pm Chief Complaint Admit Date [id number] June 25, 2024 11:08am [email or web address] July 04, 2024 2:30pm [email or web address] July 22, 2024 5: 28pm [email or web address] July 26, 2024 2 :30pm Chief Complaint Admit Date [id number] June 25, 2024 11:08am [email or web address] July 04, 2024 2:30pm [email or web address] July 22, 2024 5: 28pm [email or web address] July 26, 2024 2 :30pm [facility] DOI 06/24/24 RT SHOULDER INJURY MRI F [facility] August 08, 2024 9:47am Reason for Visit [...] 28pm [id number] July 26, 2024 2 :30pm [facility] DOI 06/24/24 RT SHOULDER INJURY MRI F [facility] August 08, 2024 9:47am OP SP BILAT KNEE PAIN August 14, 2024 1:16pm Chief Complaint Admit Date [id number] June 25, 2024 11:08am [email or web address] July 04, 2024 2:30pm [email or web address] July 22, 2024 5: 28pm [email or web address] July 26, 2024 2 :30pm [facility] DOI 06/24/24 RT SHOULDER INJURY MRI F [facility] August 08, 2024 9:47am OP SP BILAT KNEE PAIN August 14, 2024 1:16pm OP/SP BILAT KNEE PAIN September 12 8:15am Reason for Visit Admit Date Strain of unspecified muscle , fascia and tendon at shoulder and upper arm l August 08, 2024 9:47am Superior glenoid labrum lesi on of right shoulder, initial encounter August 08, 2024 9:47am Primary osteoarthritis of left knee Geovany brady 2024 1:16pm Primary osteoarthritis of right knee [...] section and content) DATE CREATED AUTHOR 01/09/2018 [facility] DATE CREATED AUTHOR AUTHOR'S ORGANIZ ATION 06/20/2021 [employer] DATE CREATED AUTHOR AUTHOR'S ORGANIZ ATION 09/13/2022 [facility] DATE CREATED AUTHOR AUTHOR'S ORGANIZ ATION 08/03/2024 [facility] DATE CREATED AUTHOR AUTHOR'S ORGANIZ ATION 11/27/2024 [facility] EPIC DATE CREATED AUTHOR AUTHOR'S ORGANIZ ATION 02/12/2025 [facility] REASON FOR VISIT (unrecogniz ed section and [...] Care Teams (unrecognized sec tion and content) Joss House Keeper Relationship Specialty Start Date End Date Spencer Mast MD [address] [place] [address] PCP - Saul Beal 10/15/20 Spencer Mast MD [address] [place] [address] PCP - General Family Medicine 11/22/22 Joss House Keeper Relationship Specialty Start Date End Date Spencer Mast MD [address] [place] [address] PCP - [facility] 10/15/20 Spencer Mast MD [address] [place] [address] PCP - General Family Medicine 11/22/22 Team Status: Active Member Role Status Watson Mast MD Primary Care Provider Active Team Status: Inactive Member Role Status Watson Jamison SEW ON OPERATOR-C Attending Provider Active S tart: August 02, [...] March 13, 2024 End: March 13, 2024 Joss House Keeper Relationship Specialty Start Date End Date Spencer Mast MD [address] [place] [address] PCP - General Family Medicine 11/22/22 Zoila Mosqueda, SEW ON OPERATOR [address] [place] [address] PCP - [employer] 03/17/24 Joss House Keeper Relationship Specialty Start Date End Date Spencer Mast MD [address] [place] [address] PCP - General Family Medicine 11/22/22 Zoila Mosqueda SEW ON OPERATOR [address] [place] [address] PCP - [employer] 03/17/24 Joss House Keeper Relationship Specialty Start Date End Date Spencer Mast MD [address] [place] [address] PCP - General Family Medicine 11/22/22 Zoila Mosqueda SEW ON OPERATOR [address] [place] [address] PCP - [employer] 03/17/24 Joss House Keeper Relationship Specialty Start Date End Date Spencer Mast MD [address] [place] [address] PCP - General Family Medicine 11/22/22 Zoila Mosqueda, SEW ON OPERATOR [address] [place] [address] PCP - [employer] 03/17/24 Joss House Keeper Relationship Specialty Start Date End Date Spencer Mast MD [address] [place] [address] PCP - General Family Medicine 11/22/22 Zoila Mosqueda, SEW ON OPERATOR [address] [place] [address] PCP - [employer] 03/17/24 Joss House Keeper Relationship Specialty Start Date End Date Spencer Mast MD [address] [place] [address] PCP - General Family Medicine 11/22/22 Zoila Mosqueda, SEW ON OPERATOR [address] [place] [address] PCP - [employer] 03/17/24 Joss House Keeper Relationship Specialty Start Date End Date Spencer Mast MD [address] [place] [address] PCP - General Family Medicine 11/22/22 Zoila Mosqueda, SEW ON OPERATOR [address] [place] [address] PCP - [employer] 03/17/24 Joss House Keeper Relationship Specialty Start Date End Date Spencer Mast MD [address] [place] [address] PCP - General Family Medicine 11/22/22 Zoila Mosqueda, SEW ON OPERATOR [address] [place] [address] PCP - [employer] 03/17/24 Joss House Keeper Relationship Specialty Start Date End Date Spencer Mast MD [address] [place] [address] PCP - General Family Medicine 11/22/22 Zoila Mosqueda, SEW ON OPERATOR [address] [place] [address] PCP - [employer] 03/17/24 Joss House Keeper Relationship Specialty Start Date End Date Spencer Mast MD [address] [place] [address] PCP - General Family Medicine 11/22/22 Zoila Mosqueda, SEW ON OPERATOR [address] [place] [address] PCP - [employer] 03/17/24 Joss House Keeper Relationship Specialty Start Date End Date Spencer Mast MD [address] [place] [address] PCP - [facility] Medicine 11/22/22 Zoila Mosqueda, SEW ON OPERATOR [address] [place] [address] PCP - [employer] 03/17/24 Team Status: Inactive Member Role [...] July 22, 2024 End: July 22, 2024 Joss House Keeper Relationship Specialty Start Date End Date Spencer Mast MD [address] [place] [address] PCP - General Family Medicine 11/22/22 Zoila Mosqueda SEW ON OPERATOR [address] [place] [address] PCP - [employer] 03/17/24 Team Status: Inactive Member Role Status Dates Spencer Mast MD Primary Care Provider Active S tart: July 26, 2024 End: July 26, 2024 Leidy Bennett APRN Attending Provider Active Start: July 26, 2024 End: July 26, 2024 Joss House Keeper Relationship Specialty Start Date End Date Spencer Mast MD [address] [place] [address] PCP - General Family Medicine 11/22/22 Zoila Mosqueda SEW ON OPERATOR [address] [place] [address] PCP - [employer] 03/17/24 Joss House Keeper Relationship Specialty Start Date End Date Spencer Mast MD [address] [place] [address] PCP - General Family Medicine 11/22/22 Zoila Mosqueda, SEW ON OPERATOR [address] [place] [address] PCP - [employer] 03/17/24 Joss House Keeper Relationship Specialty Start Date End Date Spencer Mast MD [address] [place] [address] PCP - General Family Medicine 11/22/22 Zoila Mosqueda, SEW ON OPERATOR [address] [place] [address] PCP - [employer] 03/17/24 Joss House Keeper Relationship Specialty Start Date End Date Spencer Mast MD [address] [place] [address] PCP - General Family Medicine 11/22/22 Zoila Mosqueda, SEW ON OPERATOR [address] [place] [address] PCP - [employer] 03/17/24 Team Status: Inactive Member Role Status Dates Spencer Mast MD Primary Care Provider Active S tart: August 08, 2024 End: August 08, 2024 Mukesh Salinas MD Attending Provider Active Star t: August 08, 2024 End: August 08, 2024 Joss House Keeper Relationship Specialty Start Date End Date Spencer Mast MD [address] [place] [address] PCP - General Family Medicine 11/22/22 Zoila Mosqueda, SEW ON OPERATOR [address] [place] [address] PCP - [employer] 03/17/24 Joss House Keeper Relationship Specialty Start Date End Date Spencer Mast MD [address] [place] [address] PCP - General Family Medicine 11/22/22 Zoila Mosqueda, SEW ON OPERATOR [address] [place] [address] PCP - [employer] 03/17/24 Team Status: Inactive Member Role [...] September 12, 2024 End: September 12, 2024 Joss House Keeper Relationship Specialty Start Date End Date Spencer Mast MD [address] [place] [address] PCP - General Family Medicine 11/22/22 Zoila Mosqueda, SEW ON OPERATOR [address] [place] [address] PCP [facility] 03/17/24 Joss House Keeper Relationship Specialty Start Date End Date Spencer Mast MD [address] [place] [address] PCP - General Family Medicine 11/22/22 Joss House Keeper Relationship Specialty Start Date End Date Spencer Mast MD [address] [place] [address] PCP - General Family Medicine 11/22/22 Joss House Keeper Relationship Specialty Start Date End Date Spencer Mast MD [address] [place] [address] PCP - General Family Medicine 11/22/22 Joss House Keeper Relationship Specialty Start Date End Date Spencer Mast MD [address] [place] [address] PCP - General Family Medicine 11/22/22 Joss House Keeper Relationship Specialty Start Date End Date Spencer Mast MD [address] [place] [address] PCP - General Family Medicine 11/22/22 Joss House Keeper Relationship Specialty Start Date End Date Spencer Mast MD [address] [place] [address] PCP - General Family Medicine 11/22/22 Goals (unrecognized section and content) [...] BE BASED ON THE PRIMARY CLINICAL RECORDS. [facility]. provides no warranty or guarantee of the accuracy or completeness of information in this document.
== END 2025-02-13 07:15 | disposition home or self-care (01) ==
LOC: US 07:14
PROVIDERS: PCP Family Medicine; Visit Provider Internal Medicine Nephrology
DX: I12.9 Hypertensive chronic kidney disease with stage 1 through stage 4 chronic kidney disease, or unspecified chronic kidney disease (principal); N18.32 Chronic kidney disease, stage 3b; E11.21 Type 2 diabetes mellitus with diabetic nephropathy
CPT/HCPCS: 76775; 93975

== ENCOUNTER 2025-02-27 07:03 | Outpatient (RCR) | payer MEDICARE, SELFPAY ==
--- NOTE | 2024-12-13 10:23 | CR1_ITS ---
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 Electronically Signed On 12-18-2024 16:35:58 EDT by Raphael Justin
--- NOTE | 2024-12-18 14:46 | CR1_ITS ---
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 Electronically Signed On 12-18-2024 16:43:09 EDT by Raphael Justin
--- NOTE | 2025-02-07 07:45 | PC.NURSE ---
Patient called in yesterday and then arrived on site regarding his blood pressure. He has previously spoken to Andre Ivy and [facility] staff Codie Reynoso last week regarding his high blood pressure and nose bleeds. Patient called in today stating his blood pressure prior to taking medication was 183/116, but per his report he did not feel different from his baseline and did not complain of a headache. He stopped to talk to staff prior to heading to registration for lab work and testing to discuss his blood pressure. Staff educated him on hypertension, risk of stroke and when to go to the ER. Staff told patient a systolic of >200 or diastolic of >100 should be seen by the ER if not corrected by home medications, as well s/s of a stroke or possible aneurysm such as an intense headache should call 911 and report to the closest ER immediately. Patient verbalized understanding and stated his systolic is >200 on a regular basis. We also reported this information to [facility] staff Magali Rosa. Patient was encouraged to call their office or ourselves if he had any additional questions.
--- NOTE | 2025-03-05 14:50 | PC.NURSE ---
Outreached patient, full
--- NOTE | 2025-03-07 07:36 | CR1_ITS ---
[facility] Test Date: 2025-03-07 Pat Name: LISA JURADO Department: Room: - Gender: Male Store Sales Manager: : 1955 Requested By: LUCILA CLARK Order Number: [id number] Elizabeth MD: Jody Landeros Interpretive Statements Session Date: Electronically Signed On 03-14-2025 13:28:24 EDT by Jody Landeros
--- NOTE | 2025-03-19 07:50 | PC.NURSE ---
short term outreach letter sent due to being unable to reach pt via phone and we have not heard from him in some time. will follow up in the future re: custodial outreach if no response.
--- NOTE | 2025-03-24 13:41 | PC.NURSE ---
attempted outreach via phone, no answer, voicemail left
--- NOTE | 2025-04-02 09:19 | PC.NURSE ---
[facility] outreach letter sent, patient has until april 18 to return communication or be discharged from the program per the attendance form. We would love to see the patient return and hope to hear from them soon.
--- NOTE | 2025-04-08 07:31 | CR1_ITS ---
[facility] Test Date: 2025-04-08 Pat Name: LISA JURADO Department: Room: - Gender: Male Advertiser: : 1955 Requested By: LUCILA CLARK Order Number: [id number] Elizabeth MD: MUSA RAHMAN M.D. Interpretive Statements Patient may continue cardiac rehab as outlined in the treatment plan. Electronically Signed On 04-08-2025 18:08:24 EDT by MUSA RAHMAN M.D.
--- NOTE | 2025-04-15 14:23 | CR1_ITS ---
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 Interpretive Statements Electronically Signed On 04-15-2025 20:05:28 EDT by MUSA RAHMAN M.D.
== END 2025-04-15 14:13 | disposition home or self-care (01) ==
LOC: CR 07:03
PROVIDERS: PCP Family Medicine; Visit Provider Internal Medicine Interventional Cardiology
DX: Z95.1 Presence of aortocoronary bypass graft (principal); I50.9 Heart failure, unspecified
CPT/HCPCS: 93798

== ENCOUNTER 2025-03-04 06:58 | Outpatient (OUT) | payer MEDICARE, SELFPAY ==
--- OUTSIDE RECORDS SUMMARY | 2025-02-26 11:30 | XMS_ITS | Encounter Summary ---
Author Organization [facility] Address [address] [facility] [place] [address] Care Team Providers Care Floor Hand Name Role Phone Surya Hinton MD Primary Care Provider [phone] Encounter Details Date Type Department Care Team (Late st Contact Info) Description 02/26/2025 11:30 AM EDT [facility] [place] [facility] [address] [facility] [address] [place] [id number] Zoila Fountain, HEALTH INSURANCE SALES AGENT [address] [facility] [address] [place] [address] Type 2 diabetes mellitus with hyperglycemia, unspecified whether penitentiary insulin use (HCC); Type 2 diabetes mellitus with stage 3 chronic kidney disease, with long-term current use of insulin, unspecified whether stage 3a or 3b CKD (HCC); Chronic kidney disease, stage 3b ([facility]-HCC) Social History Tobacco Use Types Packs/Day Years Used Date Smoking Tobacco: Never Smokeless Tobacco: Never Tobacco Cessation:Counseling Given: Yes Alcohol Use Standard Drinks/Week Comments Never 0 (1 standard drink = 0.6 oz pur e alcohol) PHQ-2 Answer Date Recorded Patient Health Questionnaire-2 Score 0 02/26/2025 Sex and Gender Information Value Date Recorded Sex Assigned at Not on file Legal Sex Male 6:36 PM EDT Gender Identity Not on file Sexual Orientation Not on file documented as of this encounter Last Filed Vital Signs Vital Sign Reading Time Taken Comments Blood Pressure 182/82 02/26/2025 11:35 AM EDT Pulse 88 02/26/2025 11:35 AM EDT Temperature - - Respiratory Rate 16 02/26/2025 11:35 AM EDT Oxygen Saturation 96% 02/26/2025 11:35 AM EDT Inhaled Oxygen Concentration - - Weight 107 kg (235 lb) 02/26/2025 11:35 AM EDT Height 175.3 cm (5' 9 ) 02/26/2025 11:35 AM EDT Body Mass Index 34.7 02/26/2025 11:35 AM EDT documented in this encounter Functional Status * Over the past 2 weeks, how often have you been bothered by any of the following problems? Question Answer Date of Assessment Author Little interest or pleasure in doing things Not at all 02/26/2025 11:27 AM EDT RICARDO TAN Feeling down, depressed, or hopeless Not at all 02/14 11:27 AM EDT RICARDO TAN Patient Health Questionnaire-2 Score 0 02/14 11:27 AM EDT RICARDO TAN documented as of this encounter Progress Notes * Zoila Fountain NP - 02/26/2025 11:30 AM EDT Images from the original note were not included. Subjective Patient ID: Tawanda Fuller is a 69 y.o. male who presents for No chief complaint on file.. Tawanda presents today for a follow up for his diabetes. His last A1c was 8.2 in November 2024 He is now seeing a kidney specialist. Diabetes He presents for his follow-up diabetic visit. He has type 2 diabetes mellitus. His disease course has been stable. There are no hypoglycemic associated symptoms. There are no diabetic associated symptoms. There are no hypoglycemic complications. Symptoms are stable. There are no diabetic complications. Risk factors for coronary artery disease include diabetes mellitus and male sex. Current diabetic treatment includes diet and oral agent (dual therapy). He is compliant with treatment all of the time. His weight is decreasing steadily. He is following a generally healthy diet. Meal planning includes avoidance of concentrated sweets. He has not had a previous visit with a dietitian. He participates in exercise daily. An JOY inhibitor/angiotensin II receptor alyssa is being taken. He does not see a credit support counselor.Eye exam is not current. Over the past 2 weeks, how often have you been bothered by any of the following problems? Little interest or pleasure in doing things: Not at all Feeling down, depressed, or hopeless: Not at all Patient Health Questionnaire-2 Score: 0 Current Outpatient Medications on File Prior to Visit Medication Sig Dispense Refill apixaban (Eliquis) 5 MG tablet Take 5 mg by mouth in the morning and 5 mg in the evening. ASPIRIN 81 MG chewable tablet Oral atorvastatin [...] % gel USE DIRECTED 350 g 0 ezetimibe (Zetia) 10 MG tablet Take 10 mg by mouth in the morning. furosemide (Lasix) 40 MG tablet Take 40 mg by mouth in the morning. isosorbide mononitrate ER (Imdur) 120 MG 24 [...] medical management without dialysis, stage 3 (moderate) (CMS-HCC) COVID positive 07/09/2021 pfizer immunized Diabetes mellitus (HCC) History of medical problems 03/24/2022 Rst only images demonstrate a snall area of decreased activity basal inferior and mid anterior thomas History of medical problems 06/11/2021 Right and Left kidney show normal velocities with no vessel narrowing. Left Nephrolithiasis, nonobstructing Hypertension Myocardial infarction (HCC) CELESTINA (obstructive sleep apnea) Past Surgical History: Procedure Laterality Date APPENDECTOMY COLONOSCOPY 10/30/2023 CORONARY ARTERY BYPASS GRAFT 05/2016 KNEE ARTHROSCOPY W/ ACL RECONSTRUCTION TENDON REPAIR lmf exploration w/ extensor UMBILICAL HERNIA REPAIR Visit Vitals Smoking Status Never Review of Systems Constitutional: Negative. HENT: Negative. Eyes: Negative. Respiratory: Positive for shortness of breath. Pt is going to have ablation due to A. Fib. He has been going in and out. Pt to have ablation Cardiovascular: Negative. Gastrointestinal: Negative. Genitourinary: Negative. Musculoskeletal: Rt knee pain Skin: Negative. Neurological: Negative. Psychiatric/Behavioral: Negative. All other systems reviewed and are negative. Endocrine: Negative. Objective Physical Exam Vitals reviewed. Constitutional: Appearance: Normal appearance. HENT: Head: Normocephalic. Nose: Nose normal. Mouth/Throat: Mouth: Mucous membranes are moist. Pharynx: Oropharynx is clear. Eyes: Conjunctiva/sclera: Conjunctivae normal. Cardiovascular: Rate and Rhythm: Normal rate. Pulmonary: Effort: Pulmonary effort is normal. Skin: General: Skin is warm and dry. Neurological: General: No focal deficit present. Mental Status: He is alert and oriented to person, place, and time. Psychiatric: Mood and Affect: Mood normal. Behavior: Behavior normal. Thought Content: Thought content normal. Judgment: Judgment normal. Assessment/Plan Diagnoses and all orders for this visit: Type 2 diabetes mellitus with hyperglycemia, unspecified whether extermination supervisor insulin use (HCC) - POCT glycosylated hemoglobin (Hb A1C) docked device Discussed today the importance of proper diabetic [...] patient. If the patient still has questions onthis, a referral to a Dietitian can be arranged. Reviewed medications that aid in diabetic control.Discussed proper dosing and educated the patient on possible side effects and complications. The patient verbalized understanding of these instructions. Type 2 diabetes mellitus with stage 3 chronic kidney disease, with long-term current use of insulin, unspecified whether stage 3a or 3b CKD (HCC) - POCT glycosylated hemoglobin (Hb A1C) docked device This is a chronic medical condition that is stable since last assessment. No changes in treatment are suggested at this time. Chronic kidney disease, stage 3b (CMS-HCC) This is a chronic medical condition that is stable since last assessment. No changes in treatment are suggested at this time. Pt is followed by nephrology. He is spilling protein in his urine and theprotein in his 24 hours urine is high. He may benefit from Kerendia. Will discuss with pt after he sees Ren and has his ablation with cardiology. No follow-ups on file. documented in this encounter Plan of Treatment Upcoming Encounters Date Type Department Care Team (Late st Contact Info) Description 08/28/2025 1:00 PM EST Office Visit [facility] [place] [address] [facility] [address] [place] [address] Zoila Fountain NP [address] [place] [address] documented as of this encounter Procedures Procedure Name Priority Date/Time Associated Diagnosis Comments POCT GLYCOSYLATED HEMOGLOBIN (HGB A1C) Routine 02/26/2025 11:38 AM EDT Type 2 diabetes mellitus with hyperglycemia, unspecified whether penitentiary insulin use (HCC) Type 2 diabetes mellitus with stage 3 chronic kidney disease, with long-term current use of insulin, unspecified whether stage 3a or 3b CKD (HCC) documented in this encounter Results * (ABNORMAL) POCT glycosylated hemoglobin (Hb A1C) docked device (02/26/2025 11:38 AM EDT) Hemoglobin A1C 6.8 Blood Venous blood specimen / Unknown 02/26/2025 11:38 AM EDT Zoila Fountain HEALTH INSURANCE SALES AGENT POINT OF CARE TEST ENTER/GUTIERREZ T ORDERABLES Final Result documented in this encounter Visit Diagnoses Diagnosis Type 2 diabetes mellitus with hyperglycemia, unspecified whether extermination supervisor insulin use (HCC) Type 2 diabetes mellitus with stage 3 chronic kidney disease, with long-term current use of insulin, unspecified whether stage 3a or 3b CKD (HCC) Chronic kidney disease, stage 3b (CMS-HCC) documented in this encounter Care Teams Floor Hand Relationship Specialty Start Date End Date Surya Hinton MD [address] [address] PCP - General Family Medicine 11/22/22 documented as of this encounter
--- OUTSIDE RECORDS SUMMARY | 2025-03-04 07:02 | XMS_ITS | Encounter Summary ---
Author Organization [facility] Address [address] [facility] [place] [address] Care Team Providers Care Auto Body Repair Estimator Name Role Phone Surya Hinton MD Primary Care Provider Encounter Details Date Type Department Care Team ([facility] Contact Info) Description 12/02/2024 Abstract [facility] [place] [facility] [address] [facility] [address] [place] [phone] Surya Hinton MD [address] [facility] [address] [place] [address] Social History Tobacco Use Types Packs/Day Years [...] Upcoming Encounters Date Type Department Care Team ([facility] Contact Info) Description 08/28/2025 1:00 PM EST Office Visit [facility] [place] [facility] [address] [facility] [address] [place] [phone] Zoila Fountain NP [address] [facility] [address] [place] [address] documented as of this encounter Visit Diagnoses Not on filedocumented in this encounter Care Teams Auto Body Repair Estimator Relationship Specialty Start Date End Date Surya Hinton MD [address] [facility] [address] [place] [address] PCP - General Family Medicine 11/22/22 documented as of this encounter
--- OUTSIDE RECORDS SUMMARY | 2025-03-04 07:02 | XMS_ITS | Encounter Summary ---
Author Organization [facility] Address [address] [facility] [place] [address] Care Team Providers Care Office Correspondent Name Role Phone Surya Hinton MD Primary Care Provider [phone] Encounter Details Date Type Department Care Team ([facility] Contact Info) Description 12/25/2024 Abstract [facility] [address] [facility] [address] [place] [phone] Surya Hinton MD [address] [place] [facility] [address] [place] [address] Social History Tobacco Use Types Packs/Day Years [...] Upcoming Encounters Date Type Department Care Team ([facility] Contact Info) Description 08/28/2025 1:00 PM EST Office Visit [facility] [place] [facility] [address] [facility] [address] [place] [phone] Zoila Fountain NP [address] [place] [facility] [address] [place] [address] documented as of this encounter Visit Diagnoses Not on filedocumented in this encounter Care Teams Office Correspondent Relationship Specialty Start Date End Date Surya Hinton MD [address] [facility] [address] [place] [address] PCP - General Family Medicine 11/22/22 documented as of this encounter
--- OUTSIDE RECORDS SUMMARY | 2025-03-04 07:02 | XMS_ITS | Clinical Summary ---
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 100 tablet 3 11/15/19 24 Active carvedilol (Coreg) 25 MG tabletIndications: Primary hypertension Take 1 tablet (25 mg) by mouth in the morning and 1 tablet (25 mg) before bedtime. 180 tablet 3 11/15/19 24 Active dapagliflozin (Farxiga) 10 MGIndications:Lobo nary artery disease without angina pectoris, unspecified vessel or lesion type, unspecified whether ekwok or transplanted heart Take 1 tablet (10 mg) by mouth Daily 100 tablet 3 11/15/19 24 Active lisinopril 40 MG tabletIndications: Primary hypertension Take 1 tablet (40 mg) by mouth Daily 90 tablet 3 11/15/19 24 Active semaglutide (Rybelsus) 7 MG tabletIndications: Type 2 diabetes mellitus with microalbuminuria, without long-term current use of insulin (HCC) Take 1 tablet (7 mg) by mouth in the morning. Take before meals. 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 30 tablet 11 12/06/19 24 Active chlorthalidone (Hygroton) 25 MG tablet Take 25 mg by mouth Daily 02/01/20 24 Active traZODone (Desyrel) 100 MG tabletIndications: Primary insomnia Take 1 tablet (100 mg) by mouth at bedtime 30 tablet 11 02/13/20 24 Active terazosin (Hytrin) 2 MG capsuleIndications :Benign prostatic hyperplasia without lower urinary tract symptoms Take 3 capsules (6 mg) by mouth at bedtime 270 capsule 3 08/16/19 25 026 Active apixaban (Eliquis) 5 MG tablet Take 5 mg by mouth in the morning and 5 mg in the evening. 11/14/19 25 Active ezetimibe (Zetia) 10 MG tablet Take 10 mg by mouth in the morning. 11/14/19 25 Active furosemide (Lasix) 40 MG tablet Take 40 mg by mouth in the morning. 11/14/19 25 026 Active cloNIDine (Catapres) 0.2 MG tabletIndications: Hypertension secondary to other renal disorders TAKE ONE AND ONE-HALF TABLETS BY MOUTH TWICE DAILY (MORNING AND BEFORE BEDTIME) 270 tablet 3 03/03/20 25 Active cloNIDine (Catapres) 0.2 MG tabletIndications: Hypertension secondary to other renal disorders TAKE ONE AND ONE-HALF TABLETS BY MOUTH TWICE DAILY (MORNING AND BEFORE BEDTIME) 270 tablet 02/12/20 24 025 Discontinued Active Problems Problem Noted Date Diagnosed Date [...] Encounters Date Type Department Care Team Description 03/02/2025 Refill [facility] [place] [facility] [address] [facility] [address] [place] [address] Zoila Fountain NP Hypertension secondary to other renal disorders 02/26/2025 11:30 AM EDT Office Visit [facility] [place] [facility] [address] [facility] [address] [place] [address] Zoila Fountain NP Type 2 diabetes mellitus with hyperglycemia, unspecified whether termite control technician insulin use (HCC); Type 2 diabetes mellitus with stage 3 chronic kidney disease, with long-term current use of insulin, unspecified whether stage 3a or 3b CKD (HCC); Chronic kidney disease, stage 3b ([facility]-HCC) 02/26/2025 Bamboo flowsheet [facility] [place] [facility] [address] [facility] [address] [place] [address] Zoila Fountain NP 02/26/2025 Travel 02/08/2025 Clinisync Result Encounter NOMS External Department Unsolicited Provider, Generic External Data 02/07/2025 Clinisync Result Encounter NOMS External Department Unsolicited Provider, Generic External Data 12/25/2024 Abstract [facility] [place] [facility] [address] [facility] [address] [place] [address] Surya Hinton MD 12/18/2024 Clinisync Result Encounter NOMS External Department Unsolicited Provider, Generic External Data 12/13/2024 Clinisync Result Encounter NOMS External Department Unsolicited Provider, Generic External Data 12/02/2024 Abstract [facility] [place] [facility] [address] [facility] [address] [place] [address] Surya Hinton MD from Last 3 Months Family History [...] Mass Index 34.7 02/26/2025 11:35 AM EDT Plan of Treatment Upcoming Encounters Date Type Department Care Team (Late st Contact Info) Description 08/28/2025 1:00 PM EST Office Visit [facility] [place] [facility] [address] [facility] [address] [place] [phone] Zoila Fountain NP [address] [facility] [address] [place] [address] Health Maintenance Due Date Last Done Comments CT Colonography 1955 FIT 1955 FOBT 1955 Sigmoidoscopy 1955 Pneumococcal Vaccine: 65+ Ye ars (1 of 2 - PCV) 1972 Diabetes: Retinopathy Screening 07/18/2024 , 09/17/2019 Diabetes: Urine Protein Screening 11/08/2024 024, 05/29/2018 Influenza Vaccine (#1) 2025 Diabetes: Hemoglobin A1C 05/29/2025 025, 11/26/2024, 02/13/2024, Additional history exists FIT-DNA 08/20/2026 08/20/2023, 02/2019, 01/21/2019 Colonoscopy 11/02/2033 11/03/2023, 10/30/2023 Colorectal Cancer Screening 11/02/2033 Procedures Procedure Name Priority Date/Time Associated Diagnosis Comments POCT GLYCOSYLATED HEMOGLOBIN (HGB A1C) Routine 02/26/2025 11:38 AM EDT Type 2 diabetes mellitus with hyperglycemia, unspecified whether detention insulin use (HCC) Type 2 diabetes mellitus with stage 3 chronic kidney disease, with long-term current use of insulin, unspecified whether stage 3a or 3b CKD (HCC) METANEPHRINES, FRAC, QN, 24-HR Routine 02/08/2025 6:15 AM EDT TBH URINE T PROTEIN CREAT RATIO Routine 02/07/2025 7:58 AM EDT ALL URINALYSIS Routine 02/07/2025 7:58 AM EDT ALDOSTERONE LCMS, SERUM Routine 02/07/2025 6:55 AM EDT UH RENIN,PLASMA [...] PM EDT ITP 12/13/2024 1:27 PM EDT MICROALBUMIN / CREATININE URINE RATIO [...] Relevant to Health Maintenance Results * (ABNORMAL) POCT glycosylated hemoglobin (Hb A1C) docked device (02/26/2025 11:38 AM EDT) Hemoglobin A1C 6.8 Blood Venous blood specimen / Unknown 02/26/2025 11:38 AM EDT Zoila Fountain NP POINT OF CARE TEST ENTER/GUTIERREZ T ORDERABLES Final Result * METANEPHRINES, FRAC, QN, 24-HR (02/08/2025 6:15 AM EDT) BUBFUOKCY27.1 122 Undefined ug/L TBH Comment: This test was developed and its performance characteristics determined by [facility]. It has not been cleared or approved by the Food and Drug Administration. HRCFVJRZC14.2 305 156 - 729 ug/24 hr TBH ROPZQMCHV32.3 42 Undefined ug/L TBH Comment: This test was developed and its performance characteristics determined by [facility]. It has not been cleared or approved by the Food and Drug Administration. TSIAWIIRT33.4 105 58 - 276 ug/24 hr TBH Comment: Performed at: [address] [id number] Property Damage Claims Adjustor: Paige Laura MD, Phone: [phone] 02/08/2025 6:15 AM EDT 02/11/2025 10:32 AM EDT Narrative CLINISYNC - 02/13/2025 10:11 AM EDT 2500 Generic External Data Provider LAB BLOOD ORDERAB LES Final Result Performing Organization Address City/[facility]/ZIP Co de Phone Number CLINISYNC TBH * (ABNORMAL) TBH URINE T PROTEIN CREAT RATIO (02/07/2025 7:58 AM EDT) TOTAL PROTEIN URINE RANDOM 47.1(H) <=11.9 mg/dL TBH CREATININE URINE RANDOM 141.02 20.00 - 300.00 mg/dL TBH PROTEIN CREATININE RATIO URINE 0.33 TBH 02/07/2025 7:58 AM EDT 02/07/2025 8:00 AM EDT Narrative CLINISYNC - 02/07/2025 9:30 AM EDT Generic External Data Provider CLINISYNC F inal Result [facility]IN[facility]NC TBH * (ABNORMAL) ALL URINALYSIS (02/07/2025 7:58 AM [...] AM EDT 02/07/2025 8:00 AM EDT Narrative CLINISYLA - 02/07/2025 9:22 AM EDT Generic External Data Provider CLINISYNC F inal Result Performing Organization Address City/[facility]/ZIP Co de Phone Number [facility] * TSH W/REFLEX T4 (02/07/2025 6:55 AM EDT) TSH 3.474 0.358 - 3.740 uIU/mL TB 02/07/2025 6:55 AM EDT 02/07/2025 6:57 AM EDT Narrative CLINISYNC - 02/07/2025 11:29 AM EDT Generic External Data Provider LAB BLOOD ORDERAB LES Final Result Performing Organization Address City/[facility]/ZIP Co de Phone Number [facility] * ALDOSTERONE LCMS, SERUM (02/07/2025 6:55 AM EDT) ALDOSTERONE LCMS, SERUM 14.9 0.0 - 30.0 ng/dL TB Comment: This test was developed and its performance characteristics determined by [facility]. It has not been cleared or approved by the Food and Drug Administration. Performed at: [address] [id number] Property Damage Claims Adjustor: Paige Laura MD, Phone: [phone] 02/07/2025 6:55 AM EDT 02/07/2025 6:57 AM EDT Narrative CLINISYNC - 02/13/2025 4:09 PM EDT Generic External Data Provider LAB BLOOD ORDERAB LES Final Result Performing Organization Address [facility] Co de Phone Number [facility] * (ABNORMAL) RENIN,PLASMA (02/07/2025 6:55 AM EDT) RENIN ACTIVITY, PLASMA <0.167(A) 0.167 - 5.380 ng/mL/hr [facility] Comment: This test was developed and its performance characteristics determined by [facility]. It has not been cleared or approved by the Food and Drug Administration. Performed at: [address] [id number] Property Damage Claims Adjustor: Paige Laura MD, Phone: [phone] 02/07/2025 6:55 AM EDT 02/07/2025 6:57 AM EDT Narrative CLINISYLA - 02/11/2025 11:08 AM EDT Generic External Data Provider CLINISYNC F inal Result Performing Organization Address [facility] Phone Number [facility] * TBH VITAMIN D 25 [place] (02/07/2025 6:55 AM EDT) Pathologist [facility] VITAMIN D 26.1 ng/mL [facility] Comment: <20 ng/mL Vit D deficient 20-<30 ng/mL Vit D insufficient 30-100 ng/mL Vit D sufficient >100 ng/mL Potential Toxicity 02/07/2025 6:55 AM EDT 02/07/2025 6:57 AM EDT Narrative CLINISYNC - 02/07/2025 12:31 PM EDT Generic External Data Provider CLINISYNC F inal Result Performing Organization Address [facility] Co de Phone Number [facility] * (ABNORMAL) [facility] PTH, INTRAOPERATIVE (02/07/2025 6:55 AM EDT) PTH, INTACT 101(A) 15 - 65 pg/mL TBH Comment: Performed at: [address] [id number] Property Damage Claims Adjustor: Dionicio Clements PhD, Phone: [phone] 02/07/2025 6:55 AM EDT 02/07/2025 6:57 AM EDT Narrative CLINISYNC - 02/09/2025 11:07 AM EDT Generic External Data Provider CLINISYNC F inal Result Performing Organization Address [facility] de Phone Number CLINISYNC TB * [facility] CORTISOL (02/07/2025 6:55 AM EDT) [facility] CORTISOL 18.5 6.2 - 19.4 ug/dL TBH Comment: Please Note: The reference interval and flagging for this test is for an AM collection. If this is a PM collection please use: Cortisol PM: 2.3-11.9 Performed at: [address] [id number] Property Damage Claims Adjustor: Dionicio Clements PhD, Phone: [phone] 02/07/2025 6:55 AM EDT 02/07/2025 6:57 AM EDT Narrative CLINISYNC - 02/08/2025 8:08 AM EDT Generic External Data Provider CLINISYNC F inal Result Performing Organization Address [facility] de Phone Number CLINISYNC TB * (ABNORMAL) [facility] CBC WITH PLATELET NO DIFFERENTIAL (02/07/2025 6:55 AM EDT) [facility] TB WBC 6.3 4.0 - 11.0 10 [...] External Data Provider CLINISYNC F inal Result [facility] * ALL URIC ACID (02/07/2025 6:55 AM EDT) URIC ACID 7.0 3.5 - 7.2 mg/dL TB 02/07/2025 6:55 AM EDT 02/07/2025 6:57 AM EDT Narrative CLINISYNC - 02/07/2025 11:29 AM EDT Generic External Data Provider CLINISYNC F inal Result [facility] * (ABNORMAL) ALL RENAL FUNCTION PANEL [...] 0.70 - 1.30 mg/dL TBH TBH EGFR-AF ETHIOPIAN 39(L) >=60 mL/min/1.7 3m 2 TBH TBH EGFR-NON AF ETHIOPIAN 32(L) >=60 mL/min/1.7 3m 2 TBH BUN CREATININE RATIO 13.2 TBH CALCIUM 8.4(L) 8.5 - 10.1 mg/dL TBH PHOSPHORUS 4.0 2.6 - 4.7 mg/dL TBH ALBUMIN LEVEL 3.2(L) 3.4 - 5.0 g/dL TBH 02/07/2025 6:55 AM EDT 02/07/2025 6:57 AM EDT Narrative CLINISYNC - 02/07/2025 11:29 AM EDT Generic External Data Provider CLINISYNC F inal Result CLINISYNC [facility] * ALL MAGNESIUM (02/07/2025 6:55 AM EDT) MAGNESIUM 2.0 1.8 - 2.4 mg/dL TB 02/07/2025 6:55 AM EDT 02/07/2025 6:57 AM EDT Narrative CLINISYNC - 02/07/2025 11:29 AM EDT Generic External Data Provider CLINISYNC F inal Result Performing Organization Address City/[facility]/ZIP Co de Phone Number CLINISYNC TB * ITP (12/18/2024 2:42 PM EDT) Only the most recent of2 resultswithin the time period is included. Anatomical Region Laterality Modality Other 12/18/2024 2:42 PM EDT Narrative 12/18/2024 4:43 [place] [address] Cardiac Rehab Report Signed Patient: TAWANDA JURADO MR#: [id number] : 1955 Acct:[id number] Age/Sex: 69 / M ADM Date: 12/18/24 Loc: CR Attending Dr: Judi Clark M.D. Ordering Physician: Judi Clark M.D. Date of Service: 12/18/24 Procedure(s): ITP Accession Number(s): [id number] cc: [facility] Test Date: 2024-12-18 Pat Name: TAWANDA JURADO Department: Room: - Gender: Male Materials Supervisor: : 1955 Requested By: JUDI CLARK Order Number: [id number] Elizabeth MD: Raphael Justin Interpretive Statements Okay to proceed with outlined treatment plan. Electronically Signed On 12-18-2024 16:43:09 EDT by Raphael Justin Dictated By: Raphael Justin D.O. Signed By: 12/18/24164212/18/24 164 DD/ 1442 TD/TT: Scallop Dredger: Procedure Note Radiology, Radiologist, MD - 12/19/2024 [place] [address] Cardiac Rehab Report Signed Patient: TAWANDA JURADO LMR#: [id number] : 1955cct:[id number] Age/Sex: 69 / MADM Date: 12/18/24 Loc: CR Attending Dr: uJdi Clark M.D. Ordering Physician: Judi Clark M.D. 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 Electronically Signed On 12-18-2024 16:43:09 EDT by Raphael Justin Dictated By: Raphael Justin D.O. Signed By:12/18/24164212/18/24 164 DD/ 1442 TD/TT: Scallop Dredger: us Generic External Data Provider CLINISYNC IMAGING [...] Performing Organization Information Site ID: QPT Name: [facility] Address: [address] [place] [address], [address] [place] [id number] Director: Isauro Norman MD Surya Hinton MD LAB URINE ORDERABLES Final Resul t [facility] * Colonoscopy (11/03/2023 9:39 AM EDT) Anatomical Region Laterality Modality Endoscopy Davide Frias MD ENDOSCOPY PROCEDURE ORDERABL ES Final Result * (ABNORMAL) Cologuard?? colon cancer screening (08/20/2023 7:00 AM EST) Pathologist [facility] NONINV COLON CA DNA+OCC BLD SCRN STL-IMP Positive( A) Negative 09/02/2023 2:11 AM EST [employer] (CLIA #:[id number]) Comment: POSITIVE TEST RESULT. A positive Cologuard [...] screened with both Cologuard and colonoscopy. (Rocio Patel al, N Engl J Med 2014;370(14):8181-1666.) Cologuard may produce a false negative or false positive result (no colorectal cancer or precancerous polyp present at colonoscopy follow up). A negative Cologuard test result does not guarantee the absence of CRC or advanced adenoma (pre-cancer). The current Cologuard screening interval is every 3 years. ([place] [employer] Society and U.S. Multi-Society Task Force). Cologuard performance data in a 10,000 patient pivotal study using colonoscopy as the reference method can be accessed at the following location: [email or web address]. Additional description of the Cologuard test process, warnings and precautions can be found at [email or web address]. Stool specimen (specimen) Rectal contents / Unknown 08/20/2023 7:00 AM EST 08/23/2023 9:31 AM EST Surya Hinton MD LAB MOLECULAR DIAGNOSTICS SWAPNIL WELDON Final Result [employer] (CLIA #:[id number]) [address] [place] [address], [employer] (CLIA #:[id number]) [address] [place] [address] * Color Fundus Photography - OU - Both Eyes (09/17/2019 12:00 PM EST) Anatomical Region Laterality Modality Head Fundus Photograp hy 09/17/2019 12:0 0 PM EST Narrative 09/17/2019 12:00 PM EST PERFORMED AT [facility] LOCATION:[id number] [facility] Procedure Note CONVERSION, GENERIC - 11/30/2022 PERFORMED AT [facility] LOCATION:[id number] [facility] Marielena PIMENTEL OPHTH PHOTOGRAPHY Final Result from Last 3 Months or Most Recently Relevant to Health Maintenance Insurance [employer] MEDICARE [facility] MED RISK EPO Care Teams Clinical Provider Trainer Relationship Specialty Start Date End Date Surya Hinton MD [address] [facility] [address] [place] [address] PCP - General Family Medicine 11/22/22
--- OUTSIDE RECORDS SUMMARY | 2025-03-04 07:03 | XMS_ITS | Encounter Summary ---
Author Organization [facility] Address [address] [place] [address] Care Team Providers Care Order Taker Name Role Phone Surya Hinton MD Primary Care Provider [phone] Encounter Details Date Type Department Care Team (Late st Contact Info) Description 02/19/2025 Abstract [facility] Cardiology [address] [place] [address] Reed Estrella MD [address] [place] [address] Persistent atrial fibrillation (CMS/HCC) (Primary Dx) Social History Tobacco Use Types Packs/Day Years Used Date Smoking Tobacco: Former Cigarettes Smokeless Tobacco: Never Alcohol Use Standard Drinks/Week Comments Not Currently 0 (1 standard drink = 0.6 oz pur e alcohol) occasional PHQ-2 Answer Date Recorded Patient Health Questionnaire-2 Score 0 08/17/2022 CT Safety & Environment Answer Date Rec orded [...] AM EDT documented as of this encounter Progress Notes * Reed Estrella MD - 02/19/2025 1:52 PM EDT 02/19/25 Patient called the office to let us know that he would want to proceed with AF Ablation. PFA using Farapulse Reed Estrella MD, ScM, MSc Cardiac Visitor Services Assistant Email: [email or web address] documented in this encounter Plan of Treatment Upcoming Encounters Date Type Department Care Team (Late st Contact Info) Description 04/03/2025 2:00 PM EDT Office Visit [facility] Cardiology [address] [place] [phone] Reed Estrella MD [address] [place] [address] 05/02/2025 Hospital Encounter [facility] Vascular Lab [address] [place] [phone] Reed Estrella MD [address] [place] [phone] Scheduled Procedures Name Priority Associated Diagnoses Date/Ti me Atrial Fib Ablation w/ PVI Persistent atrial fibrillation (CMS/HCC) documented as of this encounter Visit Diagnoses Diagnosis Persistent atrial fibrillation (CMS/HCC)- Primary Atrial fibrillation documented in this encounter Care Teams Order Taker Relationship Specialty Start Date End Date Surya Hinton MD [address] [facility] C PCP - General 05/18/22 documented as of this encounter
--- OUTSIDE RECORDS SUMMARY | 2025-03-04 07:03 | XMS_ITS | Encounter Summary ---
Author Organization [facility] Address [address] [facility] [place] [address] Care Team Providers Care Tight Barrel Inspector Name Role Phone Surya Hinton MD Unavailable Surya Hinton MD Primary Care Provider [phone] Zoila Fountain NP Unavailable [phone] Encounter Details Date Type Department Care Team (Late Contact Info) Description 07/05/2023 Abstract [facility] [place] [facility] [address] [facility] [address] [place] [phone] Surya Hinton MD [address] [facility] [address] [place] [address] Social History Tobacco Use Types Packs/Day Years [...] Department Care Team (Late Contact Info) Description 08/28/2025 1:00 PM EST Office Visit [facility] [place] [facility] [address] [facility] [address] [place] [address] Zoila Fountain DIRECTOR CHILD ABUSE THERAPY [address] [facility] [address] [place] [address] documented as of this encounter Visit Diagnoses Not on filedocumented in this encounter Care Teams Tight Barrel Inspector Relationship Specialty Start Date End Date Surya Hinton MD [address] [facility] [address] [place] [address] PCP - [employer] 10/15/20 Surya Hinton MD [address] [facility] [address] [place], [place] [phone] PCP - General Family Medicine 11/22/22 Zoila Fountain, IBIS [address] [facility] [address] [place] [address] PCP - [employer] 03/17/24 documented as of this encounter
--- OUTSIDE RECORDS SUMMARY | 2025-03-04 07:03 | XMS_ITS | Encounter Summary ---
Author Organization [facility] Address [address] [facility] [place] [address] Care Team Providers Care Graphics Specialist Name Role Phone Surya Hinton MD Primary Care Provider [phone] Zoila Fountain CHICKEN HATCHERY HELPER Unavailable [phone] Encounter Details Date Type Department Care Team ([facility] Contact Info) Description 08/20/2024 Abstract [facility] [address] [facility] [address] [place] [phone] Surya Hinton MD [address] [facility] [address] [place] [address] Social History Tobacco Use Types Packs/Day Years [...] Upcoming Encounters Date Type Department Care Team ([facility] Contact Info) Description 08/28/2025 1:00 PM EST Office Visit [facility] Guerra [address] [facility] [address] [place] [phone] Zoila Fountain NP [address] [facility] 110 [place] [address] documented as of this encounter Visit Diagnoses Not on filedocumented in this encounter Care Teams Graphics Specialist Relationship Specialty Start Date End Date Surya Hinton MD [address] [facility] 110 [place] [address] PCP - General Family Medicine 11/22/22 Zoila Fountain NP [address] [facility] 110 [place] [address] PCP - [place] Commercial 03/17/24 documented as of this encounter
--- OUTSIDE RECORDS SUMMARY | 2025-03-04 07:03 | XMS_ITS | Encounter Summary ---
Author Organization [facility] Address [address] [place] [address] Care Team Providers Care Neuroscientist Name Role Phone Surya Hinton MD Unavailable Surya Hinton MD Primary Care Provider [phone] Zoila Fountain NP Unavailable [phone] Encounter Details Date Type Department Care Team (Late Contact Info) Description 11/21/2023 Abstract [facility] [place] [facility] [address] [place] [address] Surya Hinton MD [address] [place] [address] Social History Tobacco Use Types Packs/Day Years [...] [address] [place] [address] Zoila Fountain LABORATORY ADMINISTRATIVE DIRECTOR [address] [place] [address] documented as of this encounter Visit Diagnoses Not on filedocumented in this encounter Care Teams Neuroscientist Relationship Specialty Start Date End Date Surya Hinton MD [address] [facility] 110 [place] [address] PCP - Saul Commercial 10/15/20 Surya Hinton MD [address] [facility] 110 [place], [place] [address] PCP - General Family Medicine 11/22/22 Zoila Fountain, IBIS [address] [facility] 110 [place] [address] PCP - Saul Commercial 03/17/24 documented as of this encounter
--- OUTSIDE RECORDS SUMMARY | 2025-03-04 07:03 | XMS_ITS | Encounter Summary ---
Author Organization [facility] Address [address] [facility] [address] Care Team Providers Care Truck Body Builder Name Role Phone Surya Hinton MD Unavailable Surya Hinton MD Primary Care Provider [phone] Zoila Fountain NP Unavailable [phone] Encounter Details Date Type Department Care Team [...] Visit [facility] [place] [facility] [address] [facility] 110 [place] [address] Zoila Fountain ROBOTIC MACHINE OPERATOR [address] [facility] 110 [place] [address] documented as of this encounter Procedures Procedure Name Priority Date/Time Associated Diagnosis Comments CA ECHO DOPPLER COMPLETE 06/02/2023 2:39 PM EST documented in this encounter Results * CA ECHO DOPPLER COMPLETE (06/02/2023 2:39 PM EST) Anatomical Region Laterality Modality Other 06/02/2023 2:39 PM EST Narrative 06/02/2023 2:39 [place] [address] Cardiology Report Signed Patient: LISA JURADO MR#: [id number] : 1955 Acct:[id number] Age/Sex: 68 / M ADM Date: 06/01/23 Loc: CARD Attending Dr: EDISON HOPPER APRN Ordering Physician: EDISON HOPPER APRN Date of Service: 06/01/23 Procedure(s): CA echo doppler complete Accession Number(s): [id number] cc: Patient Name: LISA JURADO MR#: [id number] : 1955 Exam Date: 06/01/2023 Ordering Doctor: EDISON HOPPER TRUCK SWITCHER ECHOCARDIOGRAM REPORT PROCEDURE: CARDIO PULMONARY ECHOCARDIO M/2D COMP INDICATIONS: Syncope and collapse, coronary artery disease, CABGx6, NC, hypertension, diabetes COMPARISON: None. DESCRIPTION: COMPLETE ECHOCARDIOGRAM [...] Signed By: 06/02/23 1440 DD/ 1439 TD/TT: Qa Software Tester: Procedure Note Radiology, Radiologist, MD - 06/02/2023 [place] [address] Cardiology Report Signed Patient: LISA JURADO LMR#: [id number] : 1955cct:[id number] Age/Sex: 68 / MADM Date: 06/01/23 Loc: CARD Attending Dr: EDISON HOPPER APRN Ordering Physician: EDISON HOPPER APRN Date of Service: 06/01/23 Procedure(s): CA echo doppler complete Accession Number(s): [id number] cc: Patient Name: LISA JURADO MR#: [id number] : 1955 Exam Date: 06/01/2023 Ordering Doctor: EDISON HOPPER CNP ECHOCARDIOGRAM REPORT PROCEDURE: CARDIO PULMONARY ECHOCARDIO M/2D COMP INDICATIONS: Syncope and collapse, coronary artery disease, CABGx6,NC, hypertension, diabetes COMPARISON: None. DESCRIPTION: COMPLETE ECHOCARDIOGRAM [...] 3.29 cm Aortic Valve AoV Area (Peak Johs): 3.21 cm2, 3.29 cm2, 3.28 cm2, 3.36 [...] M.D. Signed By:06/02/23 1440 DD/ 1439 TD/TT: Qa Software Tester: Generic External Data Provider [facility] Final Result documented in this encounter Visit Diagnoses Not on filedocumented in this encounter Care Teams Truck Body Builder Relationship Specialty Start Date End Date Surya Hinton MD [address] [place] [address] PCP - [place] Commercial 10/15/20 Surya Hinton MD [address] [facility] 110 [place] [address] PCP - General Family Medicine 11/22/22 Zoila Fountain NP [address] [facility] 110 [place] [address] PCP - [place] Commercial 03/17/24 documented as of this encounter
--- OUTSIDE RECORDS SUMMARY | 2025-03-04 07:03 | XMS_ITS | Encounter Summary ---
Author Organization [facility] Address [address] [place] [address] Care Team Providers Care Radio/Tv Technician Name Role Phone Surya Hinton MD Primary Care Provider [phone] Encounter Details Date Type Department Care Team (Late Contact Info) Description 02/19/2025 Telephone [facility] Cardiology [address] [place] [address] Della Cisneros MA Social History Tobacco Use Types Packs/Day Years Used Date Smoking Tobacco: Former Cigarettes Smokeless Tobacco: Never Alcohol Use Standard Drinks/Week Comments Not Currently 0 (1 standard drink = 0.6 oz pur e alcohol) occasional PHQ-2 Answer Date Recorded Patient Health Questionnaire-2 Score 0 08/17/2022 [place] Safety & Environment Answer Date Rec orded [...] Encounters Date Type Department Care Team ([facility] Contact Info) Description 04/03/2025 2:00 PM EDT Office Visit [facility] Cardiology [address] [place] [address] Reed Estrella MD 3000 [place], [place] [address] 05/02/2025 Hospital Encounter [facility] Heart and Vascular Center Vascular Lab 3000 [place] [address] Reed Estrella MD 3000 [place] [address] Scheduled Procedures Name Priority Associated Diagnoses Date/Ti me Atrial Fib Ablation w/ PVI Persistent atrial fibrillation (CMS/HCC) documented as of this encounter Visit Diagnoses Not on filedocumented in this encounter Care Teams Radio/Tv Technician Relationship Specialty Start Date End Date Surya Hinton MD 3 [facility] PCP - General 05/18/22 documented as of this encounter
--- OUTSIDE RECORDS SUMMARY | 2025-03-04 07:03 | XMS_ITS | Encounter Summary ---
Author Organization [facility] Address [address] [place] [facility] [place] [address] Care Team Providers Care Order Processing Manager Name Role Phone Surya Hinton MD Primary Care Provider [phone] Encounter Details Date Type Department Care Team (Latest Contact Info) Description 02/26/2025 Travel Social History Tobacco Use Types Packs/Day Years [...] on file documented as of this encounter Functional Status * Over the past 2 weeks, how often have you been bothered by any of the following problems? Question Answer Date of Assessment Author Little interest or pleasure in doing things Not at all 02/26/2025 11:27 AM EDT RICARDO TAN Feeling down, depressed, or hopeless Not at all 02/14 11:27 AM EDT RICADRO TAN Patient Health Questionnaire-2 Score 0 02/14 11:27 AM EDT RICARDO TAN documented as of this encounter Plan of Treatment Upcoming Encounters Date Type Department Care Team (Late st Contact Info) Description 08/28/2025 1:00 PM EST Office Visit [facility] [place] [facility] [address] [place] [address] Zoila Fountain, LOG CHIPPER [address] [place] [id number] documented as of this encounter Visit Diagnoses Not on filedocumented in this encounter Care Teams Order Processing Manager Relationship Specialty Start Date End Date Surya Hinton MD [address] [address] PCP - General Family Medicine 11/22/22 documented as of this encounter
--- OUTSIDE RECORDS SUMMARY | 2025-03-04 07:03 | XMS_ITS | Clinical Summary ---
Author Organization [facility] Address [address] [place] [address] Phone Care Team Providers Care Director Marketing Analytics Name Role Phone Surya Hinton MD Primary Care Provider [phone] Social History Tobacco Use Types Packs/Day Years [...] of Treatment Not on file Care Teams Director Marketing Analytics Relationship Specialty Start Date End Date Surya Hinton MD [address] [place] [address] PCP - General 05/28/21
--- OUTSIDE RECORDS SUMMARY | 2025-03-04 07:03 | XMS_ITS | Encounter Summary ---
Author Organization [facility] Address [address] [facility] [place] [address] Care Team Providers Care Business Unit Leader Name Role Phone Surya Hinton MD Primary Care Provider [phone] Zoila Fountain GLASS ROLLING MACHINE OPERATOR Unavailable [phone] Encounter Details Date Type Department Care Team ([facility] Contact Info) Description 09/13/2024 Abstract [facility] [place] [facility] [address] [facility] 110 [place] [address] Surya Hinton MD [address] [facility] 110 [place] [address] Social History Tobacco Use Types Packs/Day Years [...] Date Type Department Care Team ([facility] Contact Info) Description 08/28/2025 1:00 PM EST Office Visit [facility] [place] [facility] [address] [facility] 110 [place] [address] Zoila Fountain NP [address] [facility] 110 [place] [address] documented as of this encounter Visit Diagnoses Not on filedocumented in this encounter Care Teams Business Unit Leader Relationship Specialty Start Date End Date Surya Hinton MD [address] [facility] 110 [place] [address] PCP - General Family Medicine 11/22/22 Zoila Fountain NP [address] [facility] 110 [place] [address] PCP - [place] Commercial 03/17/24 documented as of this encounter
--- OUTSIDE RECORDS SUMMARY | 2025-03-04 07:03 | XMS_ITS | Encounter Summary ---
Author Organization [facility] Address [address] [facility] [place] [address] Care Team Providers Care Filter Machine Operator Name Role Phone Surya Hinton MD Unavailable Surya Hinton MD Primary Care Provider [phone] Zoila Fountain NP Unavailable [phone] Encounter Details Date Type Department Care Team (Late Contact Info) Description 06/02/2023 Orders Only [facility] [place] Pederson [address] [place] [address] A, Unknown Practice [address] [place], [place] [address] Social History Tobacco Use Types Packs/Day Years [...] [place] Pederson [address] 110 [place] [address] Zoila Fountain, CUSTOMS BROKERAGE MANAGER [address] [place] [address] documented as of this encounter Procedures Procedure [...] on filedocumented in this encounter Care Teams Filter Machine Operator Relationship Specialty Start Date End Date Surya Hinton MD 112 [facility] 110 [place] [address] PCP - Saul Commercial 10/15/20 Surya Hinton MD [address] [facility] 110 [place] [address] PCP - General Family Medicine 11/22/22 Zoila Fountain CUSTOMS BROKERAGE MANAGER [address] [facility] 110 [place] [address] PCP - Saul Commercial 03/17/24 documented as of this encounter
--- OUTSIDE RECORDS SUMMARY | 2025-03-04 07:03 | XMS_ITS | Encounter Summary ---
Author Organization [facility] Address [address] [facility] [place] [address] Care Team Providers Care Waterproofing Machine Operator Name Role Phone Surya Hinton MD Primary Care Provider [phone] Zoila Fountain ARCHIVES TECHNICIAN Unavailable [phone] Encounter Details Date Type Department Care Team ([facility] Contact Info) Description 09/13/2024 Abstract [facility] [place] [facility] [address] [facility] 110 [place] [address] Surya Hinton MD [address] [facility] 110 [place] [address] Social History Tobacco Use Types Packs/Day Years [...] Upcoming Encounters Date Type Department Care Team ([facility] Contact Info) Description 08/28/2025 1:00 PM EST Office Visit [facility] [place] [facility] [address] [facility] 110 [place] [address] Zoila Fountain NP [address] [facility] 110 [place] [address] documented as of this encounter Visit Diagnoses Not on filedocumented in this encounter Care Teams Waterproofing Machine Operator Relationship Specialty Start Date End Date Surya Hinton MD 112 [facility] 110 [place] [address] PCP - General Family Medicine 11/22/22 Zoila Fountain NP 112 [facility] 110 [place] [address] PCP - [place] Commercial 03/17/24 documented as of this encounter
--- OUTSIDE RECORDS SUMMARY | 2025-03-04 07:03 | XMS_ITS | Encounter Summary ---
Author Organization [facility] Address [address] [facility] [place] [address] Care Team Providers Care Site Director Name Role Phone Surya Mast MD Unavailable Surya Mast MD Primary Care Provider [phone] Zoila Fountain NP Unavailable [phone] Encounter Details Date Type Department Care Team [...] Visit [facility] [place] Pederson [address] [facility] 110 [place] [address] Zoila Fountain REINSURANCE ACCOUNTANT [address] [facility] 110 [place] [address] documented as of this encounter Procedures Procedure Name Priority Date/Time Associated Diagnosis Comments VASC US CAROTID ARTERY DUPLEX BILATERAL 06/01/2023 3:24 PM EST documented in this encounter Results * Vascular US carotid artery duplex bilateral (06/01/2023 3:24 PM EST) Anatomical Region Laterality Modality Neck Ultrasound 06/01/2023 3:24 PM EST Narrative 06/01/2023 3:24 PM EST [address] [address] Ultrasound Report Signed Patient: LISA JURADO MR#: [id number] : 1955 Acct:[id number] Age/Sex: 68 / M ADM Date: 06/01/23 Loc: CARD Attending Dr: EDISON HOPPER APRN Ordering Physician: EDISON HOPPER APRN Date of Service: 06/01/23 Procedure(s): US carotid duplex BI Accession Number(s): [id number] cc: SURYA MAST ; EDISON HOPPER APRN [place] [id number] Patient Name: LISA JURADO MRN: [id number] date: 1955 Sex: M Assigned Patient Location: CARD Current Patient Location: CARD Accession/Order Number: [id number] Exam Date: 06/01/2023 10:00 Report Date: 06/01/2023 [...] Signed By: 06/01/23 1526 DD/ 1524 TD/TT: Check Scaler: Procedure Note Radiology, Radiologist, MD - 06/01/2023 [place] [address] Ultrasound Report Signed Patient: LISA JURADO LMR#: [id number] : 1955cct:[id number] Age/Sex: 68 / MADM Date: 06/01/23 Loc: CARD Attending Dr: EDISON HOPPER APRN Ordering Physician: EDISON HOPPER APRN Date of Service: 06/01/23 Procedure(s): US carotid duplex BI Accession Number(s): [id number] cc: SURYA MAST ; EDISON HOPPER APRN [place] [address] Patient Name: LISA JURADO MRN: [id number] date: 1955 Sex: M Assigned Patient Location: CARD Current Patient Location: CARD Accession/Order Number: [id number] Exam Date: 06/01/2023 10:00 Report Date: 06/01/2023 [...] US Thresholds (Reference: Mono EG, et al. [id number]; 214:247-252) Stenosis (%) PSV (cm/sec) VICA/VCCA 0-49 <150 <2.5 50-69 150-225 2.5-4.0 >70 >225 >4.0 Electronically authenticated by: IFEANYI FREY Date: 06/01/2023 15:24 Dictated By: Ifeanyi Frey M.D. Signed By:06/01/23 1526 DD/ 1524 TD/TT: Check Scaler: us Generic External Data Provider IMG US PROCEDURES Final Result documented in this encounter Visit Diagnoses Not on filedocumented in this encounter Care Teams Site Director Relationship Specialty Start Date End Date Surya Mast MD [address] [place] [address] [address] PCP - [place] Commercial 10/15/20 Surya Mast MD [address] [address] PCP - General Family Medicine 11/22/22 Zoila Fountain NP [address] [address] [address] PCP - [place] Commercial 03/17/24 documented as of this encounter
--- OUTSIDE RECORDS SUMMARY | 2025-03-04 07:03 | XMS_ITS | Encounter Summary ---
Author Organization [facility] Address [address] [facility] [place] [address] Care Team Providers Care Pharmaceutical Salesperson Name Role Phone Surya Hinton MD Unavailable Surya Hinton MD Primary Care Provider [phone] Zoila Fountain NP Unavailable [phone] Encounter Details Date Type Department Care Team (Late Contact Info) Description 03/15/2024 Abstract [facility] [place] Pederson [address] [place] [address] Surya Hinton MD [address] [place] [address] Social History Tobacco Use Types Packs/Day Years [...] [address] [place] [address] Zoila Fountain RETIREMENT PLAN SPECIALIST [address] [place] [address] documented as of this encounter Visit Diagnoses Not on filedocumented in this encounter Care Teams Pharmaceutical Salesperson Relationship Specialty Start Date End Date Surya Hinton MD [address] [facility] 110 [place] [address] PCP - [place] Commercial 10/15/20 Surya Hinton MD [address] [facility] 110 [place], [place] [address] PCP - General Family Medicine 11/22/22 Zoila Fountain, IBIS [address] [facility] 110 [place] [address] PCP - [place] Commercial 03/17/24 documented as of this encounter
--- OUTSIDE RECORDS SUMMARY | 2025-03-04 07:03 | XMS_ITS | Clinical Summary ---
Author Organization [facility] Address [address] [place] [address] Care Team Providers Care Baby Registry Sales Consultant Name Role Phone Surya Hinton MD [...] type, unspecified whether angina present, unspecified whether [place] or transplanted heart Take 1 tablet (10 [...] Encounters Date Type Department Care Team Description 02/19/2025 Abstract [facility] [address] [place] [address] Reed Estrella MD Persistent atrial fibrillation (CMS/HCC) (Primary Dx) 02/19/2025 Telephone [facility] [address] [place] [address] Della Cisneros MA 02/11/2025 Telephone [facility] Heart [place] [address] [place] [address] Codie Reynoso MA 01/06/2025 3:00 PM EDT Office Visit [facility] [address] [place] [address] Reed Estrella MD Persistent atrial fibrillation (CMS/HCC) (Primary Dx) 12/18/2024 Telephone [facility] [address] [place] [facility] [place] [address] Codie Reynoso MA 12/12/2024 1:45 PM EDT Follow-Up [facility] [address] [place] [facility] [place] [address] Judi [place] MD Paroxysmal atrial fibrillation (CMS/HCC) from Last 3 Months Immunizations Immunization Administration [...] Recorded Patient Health Questionnaire-2 Score 0 08/17/2022 [place] Safety & Environment Answer Date Rec orded [...] Description 04/03/2025 2:00 PM EDT Office Visit [facility] [address] [place] [address] Reed Estrella MD 3000 [place] [address] 05/02/2025 Hospital Encounter [facility] Heart and Vascular Center Vascular Lab 3000 [place] [address] Reed Estrella MD 3000 [place] [address] Scheduled Procedures Name Priority Associated Diagnoses Date/Ti me Atrial Fib Ablation w/ PVI Persistent atrial fibrillation (CMS/HCC) Health Maintenance Due Date Last Done Comments [...] 2:05 PM EDT Paroxysmal atrial fibrillation (CMS/HCC) from Last 3 Months Results * ECG 12 lead unit performed (12/12/2024 2:05 PM EDT) Judi Wilson MD ECG ORDERABLES Final Result from Last 3 Months Insurance [employer] MEDICARE Care Teams Baby Registry Sales Consultant Relationship Specialty Start Date End Date Surya Hinton MD [address] [place] [address] PCP - General 05/18/22
--- OUTSIDE RECORDS SUMMARY | 2025-03-04 07:03 | XMS_ITS | Encounter Summary ---
Author Organization [facility] Address [address] [place] [address] Care Team Providers Care Drugless Doctor Name Role Phone Surya Hinton MD Primary Care Provider [phone] Reason for Visit * Reason Comments Med Refill Encounter Details Date Type Department Care Team (Late st Contact Info) Description 03/15/2023 Refill [facility] [place] [address] [place] [address] Judi [place] MD [address] [facility] [place] [address] Benign hypertensive heart disease without [...] Description 04/03/2025 2:00 PM EDT Office Visit [facility] Cardiology [address] [place] [address] Reed Estrella MD 3000 [place] [address] 05/02/2025 Hospital Encounter [facility] Heart and Vascular Center Vascular Lab 3000 [place] [address] Reed Estrella MD [address] [place], [place] [address] Scheduled Procedures Name Priority Associated Diagnoses Date/Ti me Atrial Fib Ablation w/ PVI Persistent atrial fibrillation (CMS/HCC) documented as of this encounter Visit Diagnoses Diagnosis Benign hypertensive heart disease without congestive heart failure Benign hypertensive heart disease without heart failure documented in this encounter Care Teams Drugless Doctor Relationship Specialty Start Date End Date Surya Hinton MD [address] [facility] PCP - General 05/18/22 documented as of this encounter
--- OUTSIDE RECORDS SUMMARY | 2025-03-04 07:03 | XMS_ITS | Encounter Summary ---
Author Organization [facility] Address [address] [facility] [place] [address] Care Team Providers Care Game Farm Supervisor Name Role Phone Surya Hinton MD Unavailable Surya Hinton MD Primary Care Provider [phone] Zoila Fountain NP Unavailable [phone] Encounter Details Date Type Department Care Team (Late Contact Info) Description 12/04/2023 Abstract [facility] [place] Pederson [address] [place] [address] Surya Hinton MD [address] [place] [address] Social History Tobacco Use Types Packs/Day Years [...] Pederson [address] [place] [address] Zoila Fountain STATEMENT SERVICES REPRESENTATIVE [address] [place] [address] documented as of this encounter Visit Diagnoses Not on filedocumented in this encounter Care Teams Game Farm Supervisor Relationship Specialty Start Date End Date Surya Hinton MD [address] [facility] 110 [place] [address] PCP - [place] Commercial 10/15/20 Surya Hinton MD [address] [facility] 110 [place], [place] [address] PCP - General Family Medicine 11/22/22 Zoila Fountain, IBIS [address] [facility] 110 [place] [address] PCP - [place] Commercial 03/17/24 documented as of this encounter
--- OUTSIDE RECORDS SUMMARY | 2025-03-04 07:03 | XMS_ITS | Encounter Summary ---
Author Organization [facility] Address [address] [facility] [place] [address] Care Team Providers Care Anthropometrist Name Role Phone Surya Hinton MD Unavailable Surya Hinton MD Primary Care Provider [phone] Zoila Fountain NP Unavailable [phone] Encounter Details Date Type Department Care Team (Late Contact Info) Description 11/23/2023 Abstract [facility] [place] [facility] [address] [facility] 110 [place] [id number] Surya Hinton MD [address] [place] [address] Social History Tobacco Use Types Packs/Day Years [...] Pederson [address] [place] [address] Zoila Fountain CAR REPAIRER HELPER [address] [place] [address] documented as of this encounter Visit Diagnoses Not on filedocumented in this encounter Care Teams Anthropometrist Relationship Specialty Start Date End Date Surya Hinton MD [address] [facility] 110 [place] [address] PCP - Saul Commercial 10/15/20 Surya Hinton MD [address] [facility] 110 [place], [place] [id number] PCP - General Family Medicine 11/22/22 Zoila Fountain, IBIS [address] [facility] 110 [place] [address] PCP - Saul Commercial 03/17/24 documented as of this encounter
--- OUTSIDE RECORDS SUMMARY | 2025-03-04 07:03 | XMS_ITS | Encounter Summary ---
Author Organization [facility] Address [address] [facility] [place] [address] Care Team Providers Care Carbon Paper Machine Operator Name Role Phone Surya Hinton MD Primary Care Provider [phone] Zoila Fountain SALES TRAINER Unavailable [phone] Encounter Details Date Type Department Care Team ([facility] Contact Info) Description 08/14/2024 Abstract [facility] [address] [facility] 110 [place] [phone] Surya Hinton MD [address] [facility] 110 [place] [address] Social History Tobacco Use Types Packs/Day Years [...] Upcoming Encounters Date Type Department Care Team ([facility] Contact Info) Description 08/28/2025 1:00 PM EST Office Visit [facility] [address] [facility] 110 [place] [phone] Zoila Fountain NP [address] [facility] 110 [place] [address] documented as of this encounter Visit Diagnoses Not on filedocumented in this encounter Care Teams Carbon Paper Machine Operator Relationship Specialty Start Date End Date Surya Hinton MD 112 [facility] 110 [place] [address] PCP - General Family Medicine 11/22/22 Zoila Fountain NP 112 [facility] 110 [place] [address] PCP - [place] Commercial 03/17/24 documented as of this encounter
--- OUTSIDE RECORDS SUMMARY | 2025-03-04 07:03 | XMS_ITS | Encounter Summary ---
Author Organization [facility] Address [address] [place] [address] Care Team Providers Care Waxing Machine Operator Name Role Phone Surya Hinton MD Unavailable Surya Hinton MD Primary Care Provider [phone] Zoila Fountain NP Unavailable [phone] Encounter Details Date Type Department Care Team (Late st Contact Info) Description 11/03/2023 Orders Only [facility] [address] [id number] Davide Cobb MD [address] [address] Social History Tobacco Use Types Packs/Day [...] PM EST Office Visit [facility] [place] [facility] [address] [place] [id number] Zoila Fountain, HOSPITALITY HOST [address] [place] [address] documented as of this encounter Procedures Procedure Name Priority Date/Time Associated Diagnosis Comments COLONOSCOPY Routine 11/03/2023 9:39 AM EDT documented in this encounter Results * Colonoscopy (11/03/2023 9:39 AM EDT) Anatomical Region Laterality Modality Endoscopy us Davide Frias MD ENDOSCOPY PROCEDURE ORDERABL ES Final Result documented in this encounter Visit Diagnoses Not on filedocumented in this encounter Care Teams Waxing Machine Operator Relationship Specialty Start Date End Date Surya Hinton MD 112 [facility] 110 [place] [address] PCP - [place] Commercial 10/15/20 Surya Hinton MD 112 [facility] 110 [place] [address] PCP - General Family Medicine 11/22/22 Zoila Fountain HOSPITALITY HOST [address] [facility] 110 [place] [address] PCP - [place] Commercial 03/17/24 documented as of this encounter
--- OUTSIDE RECORDS SUMMARY | 2025-03-04 07:03 | XMS_ITS | Encounter Summary ---
Author Organization [facility] Address [address] [place] [address] Care Team Providers Care Piping Engineer Name Role Phone Surya Hinton MD Unavailable Surya Hinton MD Primary Care Provider [phone] Zoila Fountain NP Unavailable [phone] Encounter Details Date Type Department Care Team (Late Contact Info) Description 04/19/2023 Abstract [facility] [place] Pederson [address] [place] [phone] Surya Hinton MD [address] 110 [place] [address] Social History Tobacco Use Types Packs/Day Years [...] [address] [place] [address] Zoila Fountain BUSINESS PROCESS MANAGER [address] [place] [address] documented as of this encounter Visit Diagnoses Not on filedocumented in this encounter Care Teams Piping Engineer Relationship Specialty Start Date End Date Surya Hinton MD [address] [facility] 110 [place] [address] PCP - Saul Commercial 10/15/20 Surya Hinton MD [address] [facility] 110 [place], [place] [id number] PCP - General Family Medicine 11/22/22 Zoila Fountain, IBIS [address] [facility] 110 [place] [address] PCP - Saul Commercial 03/17/24 documented as of this encounter
--- OUTSIDE RECORDS SUMMARY | 2025-03-04 07:03 | XMS_ITS | Encounter Summary ---
Author Organization [facility] Address [address] [facility] [place] [address] Care Team Providers Care Pigment Making Supervisor Name Role Phone Surya Hinton MD Unavailable Surya Hinton MD Primary Care Provider [phone] Zoila Fountain NP Unavailable [phone] Encounter Details Date Type Department Care Team (Late Contact Info) Description 03/15/2024 Abstract [facility] [place] Pederson [address] [place] [phone] Surya Hinton MD [address] [place] [address] Social History Tobacco Use Types Packs/Day Years [...] Pederson [address] [place] [address] Zoila Fountain SEO COORDINATOR [address] [place] [address] documented as of this encounter Visit Diagnoses Not on filedocumented in this encounter Care Teams Pigment Making Supervisor Relationship Specialty Start Date End Date Surya Hinton MD [address] [facility] 110 [place] [address] PCP - Saul Commercial 10/15/20 Surya Hinton MD [address] [facility] 110 [place], [place] [address] PCP - General Family Medicine 11/22/22 Zoila Fountain, IBIS [address] [facility] 110 [place] [address] PCP - Saul Commercial 03/17/24 documented as of this encounter
--- OUTSIDE RECORDS SUMMARY | 2025-03-04 07:03 | XMS_ITS | Encounter Summary ---
Author Organization [facility] Address [address] [facility] [place] [address] Care Team Providers Care Custom Grinder Name Role Phone Surya Hinton MD Unavailable Surya Hinton MD Primary Care Provider [phone] Zoila Fountain NP Unavailable [phone] Encounter Details Date Type Department Care Team (Late Contact Info) Description 11/28/2023 Abstract [facility] [place] Pederson [address] [place] [address] Surya Hinton MD [address] [place] [address] Social History Tobacco Use Types Packs/Day Years [...] Pederson [address] [place] [address] Zoila Fountain BRIQUETTE MACHINE OPERATOR [address] [place] [address] documented as of this encounter Visit Diagnoses Not on filedocumented in this encounter Care Teams Custom Grinder Relationship Specialty Start Date End Date Surya Hinton MD [address] [facility] 110 [place] [address] PCP - Saul Commercial 10/15/20 Surya Hinton MD [address] [facility] 110 [place], [place] [id number] PCP - General Family Medicine 11/22/22 Zoila Fountain, IBIS [address] [facility] 110 [place] [address] PCP - Saul Commercial 03/17/24 documented as of this encounter
--- OUTSIDE RECORDS SUMMARY | 2025-03-04 07:03 | XMS_ITS | Encounter Summary ---
Author Organization [facility] Address [address] [facility] [place] [address] Care Team Providers Care Grant Coordinator Name Role Phone Surya Hinton MD Unavailable Surya Hinton MD Primary Care Provider [phone] Zoila Fountain NP Unavailable [phone] Encounter Details Date Type Department Care Team (Late Contact Info) Description 04/12/2023 Abstract [facility] [place] Pederson [address] [place] [address] Surya Hinton MD [address] [place] [address] Social History Tobacco Use Types Packs/Day Years [...] [address] [place] [address] Zoila Fountain CRANE OILER [address] [place] [address] documented as of this encounter Visit Diagnoses Not on filedocumented in this encounter Care Teams Grant Coordinator Relationship Specialty Start Date End Date Surya Hinton MD [address] [facility] 110 [place] [address] PCP - Saul Commercial 10/15/20 Surya Hinton MD [address] [facility] 110 [place], [place] [id number] PCP - General Family Medicine 11/22/22 Zoila Fountain, IBIS [address] [facility] 110 [place] [address] PCP - Saul Commercial 03/17/24 documented as of this encounter
--- OUTSIDE RECORDS SUMMARY | 2025-03-04 07:03 | XMS_ITS | Encounter Summary ---
Author Organization [facility] Address [address] [facility] [place] [address] Care Team Providers Care Chemistry Lab Instructor Name Role Phone Surya Hinton MD Unavailable Surya Hinton MD Primary Care Provider [phone] Zoila Fountain NP Unavailable [phone] Encounter Details Date Type Department Care Team (Late Contact Info) Description 11/06/2023 Abstract [facility] [place] Pederson [address] [place] [phone] Surya Hinton MD [address] [place] [address] Social History Tobacco Use Types Packs/Day Years [...] Pederson [address] [place] [address] Zoila Fountain GROUNDS WORKER [address] [place] [address] documented as of this encounter Visit Diagnoses Not on filedocumented in this encounter Care Teams Chemistry Lab Instructor Relationship Specialty Start Date End Date Surya Hinton MD [address] [facility] 110 [place] [address] PCP - Saul Commercial 10/15/20 Surya Hinton MD [address] [facility] 110 [place], [place] [address] PCP - General Family Medicine 11/22/22 Zoila Fountain, IBIS [address] [facility] 110 [place] [address] PCP - Saul Commercial 03/17/24 documented as of this encounter
--- OUTSIDE RECORDS SUMMARY | 2025-03-04 07:03 | XMS_ITS | Clinical Summary ---
Author Organization [employer] [facility] Address [id number] [place] [address] Care Team Providers Care Owner/Photographer Name Role Phone Unavailable Primary Care Provider [...]
--- OUTSIDE RECORDS SUMMARY | 2025-03-04 07:03 | XMS_ITS | Encounter Summary ---
Author Organization [facility] Address [address] [facility] [place] [address] Care Team Providers Care Doctor Of Veterinary Medicine Name Role Phone Surya Hinton MD Unavailable Surya Hinton MD Primary Care Provider [phone] Zoila Fountain NP Unavailable [phone] Encounter Details Date Type Department Care Team (Late Contact Info) Description 01/30/2024 Abstract [facility] [place] Pederson [address] [place] [address] Surya Hinton MD [address] [place] [address] Social History Tobacco Use Types Packs/Day Years [...] Pederson [address] [place] [address] Zoila Fountain BRANCH MANAGER [address] [place] [address] documented as of this encounter Visit Diagnoses Not on filedocumented in this encounter Care Teams Doctor Of Veterinary Medicine Relationship Specialty Start Date End Date Surya Hinton MD [address] [facility] 110 [place] [address] PCP - Saul Commercial 10/15/20 Surya Hinton MD [address] [facility] 110 [place], [place] [id number] PCP - General Family Medicine 11/22/22 Zoila Fountain, IBIS [address] [facility] 110 [place] [address] PCP - Saul Commercial 03/17/24 documented as of this encounter
--- OUTSIDE RECORDS SUMMARY | 2025-03-04 07:03 | XMS_ITS | CCD ---
Author Organization [facility] Care Team Providers Care Kayak Maker Name Role Phone PHYSICIAN, DEFAULT Unavailable Unavailable [...] Unavailable Spencer Mast MD Primary Care Provider [phone] MD Spencer Mast Primary Care Provider MD Jagdeep Stiles II Attending Provider MD Spencer Mast Primary Care Provider [phone] MD Jagdeep Stiles II Attending Provider MD Davide Cobb Attending Provider Panda BAUMANNZoila Unavailable Spencer Mast MD Primary Care Provider [phone] Leidy Bennett APRN Attending Provider Pro Mikaelatelly Primary Care Unavailable Jagdeep Stiles II Admitting UnavailJagdeep Gong II Attending Unavailabl e Bennett, Leidy D Attending Unavailable Bennett, Leidy D Admitting Unavailable [facility] Unavailable Bennett, Leidy D Admitting Unavailable Bennett, Leidy D Attending Unavailable ProSpencer Primary Care Unavailable [facility] Primary Care Unavailable Bennett, Leidy D Admitting Unavailable Bennett, Leidy D Attending Unavailable [facility] Spencer Primary Care Unavailable Bennett, Leidy D Admitting Unavailable Bennett, Leidy D Attending Unavailable [facility] Davide Cobb Admitting Unavailable Davide Cobb Attending Unavailable NIKKO ROCHE Attending Unavailable NIKKO ROCHE Attending Unavailable ELTAHAWPaulette, EHAB Attending Unavailable CUPID, MANAGED SERVICES SALES CONSULTANT Referring Unavailable NIKKO ROCHE Referring Unavailable MUSA MENJIVAR Referring Unavailable JUDI WILSON Attending Unavailable CUPID, MANAGED SERVICES SALES CONSULTANT Admitting Unavailable CUPID, MANAGED SERVICES SALES CONSULTANT Attending Unavailable ANGELY MUNOZ Attending Unavailable Spencer Mast MD Primary Care Provider Sarah Anne MD Attending Provider [phone] OZIEL ARELLANO Attending Unavailable BENNETT, LEIDY Referring Unavailable GONZALEZTONOZIEL T Attending Unavailable BENNETT, LEIDY Referring Unavailable JETHRO WARE Attending Unavailable BENNETT, LEIDY Referring Unavailable OZIEL ARELLANO Attending Unavailable BENNETT, LEIDY Referring Unavailable OZIEL ARELLANO Attending Unavailable BENNETT, LEIDY Referring Unavailable BLACKSTONJASONOZIEL T Attending Unavailable BENNETT, LEIDY Referring Unavailable PANDA, ZOILA M Attending Unavailable ZOILA MOSQUEDA Attending Unavailable ZOILA MOSQUEDA Attending Unavailable ZOILA MOSQUEDA Attending Unavailable OZIEL ARELLANO Attending Unavailable LEIDY BENNETT Referring Unavailable JETHRO WARE Attending Unavailable BENNETT, LEIDY Referring Unavailable LEIDY JACOME Attending Unavailable LEIDY BENNETT Referring Unavailable DARRYL MONCADA Attending Unavailable LEIDY BENNETT Referring Unavailable DARRYL MONCADA Attending Unavailable BENNETTLEIDY Referring Unavailable ZOILA MOSQUEDA Attending Unavailable Medications Current Medications Medication Drug Class(es) Dates Sig (Normalized) Sig (Original) [id number] actuat albuterol 0.09 mg/actuat metered dose [...] 09/08/2023 Active apixaban 5 mg oral tablet (10 sources) Factor Xa Inhibitor Start: 11-13-2024 take [...] MG PO Daily August 31, 2023 1:00am Complies with drug therapy ASPIRIN 81 MG ch ewable tablet Oral [...] (Lipitor) 80 MG tablet Indications: Atherosclerosis of [place] coronary artery with angina pectoris, unspecified whether [place] or transplanted heart Take 1 tablet (80 mg) by mouth in the morning. 100 tablet 3 11/15/2023 Active Start: 07-31-2023 take 1 tablet by nadja th in the morning atorvastatin (Lipitor) 80 MG tablet Indications: Atherosclerosis of [place] coronary artery with angina pectoris, unspecified whether [place] or transplanted heart (CMS/HCC) TAKE 1 TABLET [...] unspecified vessel or lesion type, unspecified whether [place] or transplanted heart Take 1 tablet (10 mg) by mouth Daily 100 tablet 3 11/15/2023 Active Start: 03-10-2023 take 1 tablet by ndaja th in the morning dapagliflozin (Farxiga) 10 MG Indications: Coronary artery disease without angina pectoris, unspecified vessel or lesion type, unspecified whether [place] or transplanted heart (CMS/HCC) Take 1 tablet [...] for knee pain 08 15August 31, 2023 1:00am Complies with drug therapy Start: 08-31-2023 Diclofenac Sod ium Active 2 GM TOPICAL as directed 08 15August 31, 2023 1:00am doxycycline monohydrate 100 mg oral capsule (2 sources) Tetracycline-class Drug Start: 06-14-2017 take 1 capsule by mouth every twelve hours Doxycycline Monohydrate 100 MG 1 capsule Orally every 12 hrs for 7 days May, Active ezetimibe 10 mg oral tablet (10 sources) Dietary Cholesterol Absorption Inhibitor Start: 11-13-2024 [...] May, Active furosemide 40 mg oral tablet (13 sources) Loop Diuretic Start: 11-13-2024 End: 11-08-2025 take 1 tablet by mouth in the morning furosemide (Lasix) 40 MG tablet Take 40 mg by mouth in the morning. 11/13/2024 11/08/2025 Active Start: 04-19-2023 End: 04-18-2024 furosemide (Lasix) 40 MG tab let Take 20 mg by mouth in the morning. 0 04/19/2023 08/29/2023 Discontinued (Other) hydrALAZINE hydrochloride 50 mg oral tablet (1 source) Arteriolar Vasodilator Start: 12-04-2024 take 1 tablet by mouth three times daily Hydralazine 50 mg tablet Active 50 MG PO Three times daily December 04, 2024 12:00am Complies with drug therapy 24 hr isosorbide mononitrate 120 mg extended [...] MG PO Daily August 31, 2023 1:00am Complies with drug therapy Start: 04-19-2023 take 1 tablet by nadja [...] 17-Jun-2020 DO Start : 10-Sep-2019 Active Isosorbide [place] itrate ER Active lisinopril 40 mg oral [...] Activ e meloxicam 15 mg oral tablet (4 sources) Nonsteroidal Anti-inflammatory Drug Start: 01-28-2025 End: 02-25-2025 take 1 tablet by mouth once daily Meloxicam 15 mg tablet Active 0 .ROUTE .COMPLEX February 25, 2025 10:24am Take 1 tablet by mouth once daily Complies with drug therapy Start: 08-15-2024 End: 01-28-2025 take 1 tablet by mouth once daily Meloxicam 15 mg tablet Discontinued 15 MG PO daily August 15, 2024 1:00am January 28, 2025 2:35pm methylPREDNISolone (10 sources) Corticosteroid Start: 08-01-2024 End: [...] before meals. 90 tablet 3 11/15/2023 Active Start: 08-31-2023 End: 12-04-2024 take 1 tablet by mouth once daily Semaglutide 3 mg tablet Discontinued 3 MG PO Daily August 31, 2023 1:00am December 04, 2024 3:38pm take 1 tablet by nadja th before mealtime semaglutide (Rybelsus) 3 MG tablet [...] 2023 12:00am spironolactone 25 mg oral tablet (20 sources) Aldosterone Antagonist Start: 02-25-2025 take 3 tablets by mouth once daily Spironolactone (Aldactone) 25 mg tablet Active 75 MG PO Daily February 25, 2025 2:33pm Complies with drug therapy Start: 12-04-2024 End: 02-25-2025 take 1 tablet by mouth once daily Spironolactone (Aldactone) 25 mg tablet Discontinued 25 MG PO Daily December 04, 2024 12:00am February 25, 2025 2:40pm Start: 08-31-2023 End: 03-06-2024 take 1 tablet by mouth once daily Spironolactone 25 mg tablet Discontinued 25 MG PO Daily August 31, 2023 1:00am March 06, 2024 8:09am Start: 11-12-2021 take 1 tablet by nadja th once daily Spironolactone 25 MG Oral Tablet TAKE 1 TABLET DAILY. Quantity: 90 Refills: 3 Ordered: 28-May-2021 Juanito Peterson MD Start : 28-May-2021 Active new terazosin 2 mg oral capsule (20 sources) alpha-Adrenergic Alyssa Start: 08-31-2023 End: 12-04-2024 take 1 capsule by mouth once daily Terazosin 2 mg capsule Discontinued 2 MG PO Daily August 31, 2023 1:00am December 04, 2024 3:40pm Start: 02-16-2023 End: 08-11-2025 take 3 capsules by mouth at bedtime terazosin (Hytrin) 2 MG capsule Indications: Benign prostatic hyperplasia without lower urinary tract symptoms Take 3 capsules (6 mg) by mouth at bedtime 270 capsule 3 08/16/2024 08/11/2025 Active Start: 12-16-2019 take 1 capsule by mo [facility] once daily at bedtime Terazosin HCl - [...] mouth at bedtime 30 tablet 11 02/13/2024 Active Completed/Discontinued Medications Medication Drug Class(es) Dates Sig (Normalized) Sig (Original) Augmentin Tablets 875 MG (2 sources) Start: 09-15-2014 Augmentin Tablets 875 MG Take as directed By Mouth bid for 10 days Sep, Not-Taking/PRN chlorthalidone 25 mg oral tablet (20 sources) Thiazide-like Diuretic Start: 03-06-2024 Chlorthalidone Active MG PO March 06, 2024 12:00am Start: 02-01-2024 End: 12-04-2024 take 1 tablet by mouth once daily chlorthalidone (Hygroton) 25 MG tablet Take 25 mg by mouth Daily 02/01/2024 Active clopidogrel 75 mg oral tablet (6 sources) [...] atrial fibrillation; Translations: [Unspecified atrial fibrillation] Onset: 5 Chronic Chronic kidney disease (9 sources) Chronic kidney disease stage 3A ; [...] [Coronary atherosclerosis of unspecified type of vessel, [place] or graft] Onset: 2 02-14-2023 Chronic Diabetes [...] of knee] Onset: 6 02-16-2023 Chronic Other endocrine disorders (3 sources) Hyperaldosteronism; Translations: [Hyperaldosteronism, unspecified] Chronic Other gastrointestinal disorders (2 sources) Passing [...] pain] 03-13-2024 Chronic Other non-traumatic joint disorders (5 sources) Pain in right knee; Translations: [Pain [...] Resistant hypertension; Translations: [Resistant hypertension] Onset: 2 Unclassified (1 source) E26.9 - Hyperaldosteronism, unspecified,I1A.0 - Resistant hypertension Past or Other Problems Problem Classification Problem [...] EHR Cmte Other aftercare (1 source) Other moth exterminator (current) drug therapy; Translations: [OTH AUTOMATIC VULCANIZING LEAD OPERATOR CURRENT DRUG THERAPY] Onset: 01-31-2022 Episodic Other aftercare (1 source) superintendent terminal (current) use of aspirin; Translations: [AUTOMATIC VULCANIZING LEAD OPERATOR CURRENT USE OF ASPIRIN] Onset: 01-31-2022 Episodic [...] Test Name Value Interpretation Reference Range Facility HbA1c (Bld) [Mass fraction]o n 02-26-2025 Interpretation and review of laboratory results Abnormal [facility] - Hematology and Cell countson 02-26-2025 HbA1c (Bld) [Mass fraction] 6.8 % [facility] Abstracton 02-19-[id number] 1955 M Date Provider Department Center 02/19/2025 [id number]-LDFCANGELY GRUBBS [facility] Family History Problem Relation Age of Onset Coronary artery disease Mother Coronary artery disease Father Coronary artery disease Brother ALS Brother Stroke Brother Family Status - Relation Status Age at Mother Father Sister Alive Brother Normal [facility] 36on 02-18-2025 36 Spoke with Lyric from [facility] cardiac rehab. He reported BP's to her: 172/128, 182/119. She did confirm with patient that he does have a follow up with nephrology next week on 02/25. Then spoke with patient and advised he keep that apt. 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 Patient verbalized understanding. [facility] METANEPHRINES, FRAC, QN, 24- HRon 02-13-2025 STCKQDEFL29.1 122 ug/L Undefined [facility] Comment on above: This test was develo ped and its performance characteristics determined by [facility]. It has not been cleared or approved by the Food and Drug Administration. ZFSCQVSLK21.2 305 [facility] HQSHIVYHD18.3 42 ug/L Undefined [facility] Comment on above: This test was develo ped and its performance characteristics determined by [facility]. It has not been cleared or approved by the Food and Drug Administration. JSDLKKOKT72.4 105 [facility] Comment on above: Performed at: [address] [id number] Joint Cleaning Machine Operator: Paige Laura MD, Phone: [phone] 2500 [facility] 3602-11-2025 36 Patient stopped by t o report [...] He is scheduled 02/13 for echo at [facility]. Normal [facility] Erythrocyte distribution wid th Auto (RBC) [Ratio]Ordered By: Sarah Anne on 02-07-2025 Erythrocyte distribution width (RBC) [Ratio] 15.8 % High 11.0-15.0 [facility] Glomerular filtration rate ( GFR) estimation in non- AmericanOrdered By: Sarah Anne on 02-07-2025 GFR/1.73 sq M.predicted among non-blacks MDRD (S/P/Bld) [Vol rate/Area] 32 mL/min/{1.73_m2} Low >=60 mL/min/1.7 3m 2 [facility] CBC WITH PLATELET NO DI FFERENTIALon 02-07-2025 Erythrocyte distribution width (RBC) [Ratio] 15.8 % High 11.0 - 15.0 % [facility] Hematocrit (Bld) [Volume fraction] 35.2 % Low 42.0 - 54.0 % [facility] Hemoglobin (Bld) [Mass/Vol] 11.5 g/dL Low 14.0 - 18.0 g/dL [facility] Interpretation and review of laboratory results Abnormal [facility] MCH (RBC) [Entitic mass] 29.1 pg 25.9 - 34.0 pg [facility] MCHC (RBC) [Mass/Vol] 32.7 g/dL 29.9 - 35.2 g/dL [facility] MCV (RBC) [Entitic vol] 89.1 fL 80.0 - 94.0 fL [facility] Platelet mean volume (Bld) [Entitic vol] 11.4 fL 9.5 - 13.5 fL [facility] TB PLT 179 [facility] RBC 3.95 Low [facility] WBC 6.3 [facility] Hematocrit Auto (Bld) [Volum e fraction]Ordered By: Sarah Anne on 02-07-2025 Hematocrit (Bld) [Volume fraction] 35.2 % Low 42.0-54.0 [facility] Hemoglobin [Mass/volume] in BloodOrdered By: Sarah Anne on 02-07-2025 Hemoglobin (Bld) [Mass/Vol] 11.5 g/dL Low 14.0-18.0 [facility] Laboratory - Chemistry and C hemistry - challengeOrdered By: Sarah Anne on 02-07-2025 Bilirubin Ql (U) Negative NEGATIVE [facility] Glucose (U) [Mass/Vol] mg/dL Abnormal NEGATIVE [facility] Ketones Ql (U) Negative NEGATIVE [facility] pH (U) 6.0 [pH] 5.0-9.0 [facility] Specific gravity (U) [Rel density] 1.015 1.005-1.02 5 [facility] Urobilinogen Qn (U) 1.0 {Iraida'U}/dL 0.2-1.0 [facility] Albumin [Mass/Vol] 3.2 g/dL Low 3.4-5.0 [facility] Calcium [Mass/Vol] 8.4 mg/dL Low 8.5-10.1 [facility] Chloride [Moles/Vol] 107 mmol/L 98-107 [facility] CO2 [Moles/Vol] 27.1 mmol/L 21.0-32.0 [facility] Creatinine [Mass/Vol] 2.05 mg/dL High 0.70-1.30 [facility] GFR/1.73 sq M.predicted MDRD (S/P/Bld) [Vol rate/Area] 39 mL/min/{1.73_m2} Low >=60 mL/min/1.7 3m 2 [facility] Glucose [Mass/Vol] 134 mg/dL High 74-106 [facility] Magnesium [Mass/Vol] 2.0 mg/dL 1.8-2.4 [facility] Potassium [Moles/Vol] 4.5 mmol/L 3.5-5.1 [facility] Sodium [Moles/Vol] 143 mmol/L 136-145 [facility] TSH Qn 3.474 m[IU]/L 0.358-3.74 0 [facility] Urate [Mass/Vol] 7.0 mg/dL 3.5-7.2 [facility] Urea nitrogen [Mass/Vol] 27.0 mg/dL High 7.0-18.0 [facility] Urea nitrogen/Creatinine [Mass ratio] 13.2 mg/mg [facility] Laboratory - Specimen inform ationOrdered By: Sarah Anne on 02-07-2025 Appearance (U) CLEAR CLEAR [facility] Color (U) LT. YELLOW YELLOW [facility] Laboratory - UrinalysisOrder ed By: Sarah Anne on 02-07-2025 Leukocyte esterase Test strip Ql (U) Negative NEGATIVE [facility] Nitrite Ql (U) Negative NEGATIVE [facility] Protein (U) [Mass/Vol] 47.1 mg/dL High <=11.9 [facility] Protein Ql (U) 30 mg/dL Abnormal NEG/TRACE [facility] Leukocytes [#/volume] correc yohana for nucleated erythrocytes in Blood by Automated counOrdered By: Sarah Anne on 02-07-2025 WBC corrected for nucl RBC Auto (Bld) [#/Vol] 6.3 10 3/uL 4.0-11.0 [facility] MCH Auto (RBC) [Entitic mass ]Ordered By: Sarah Anne on 02-07-2025 MCH (RBC) [Entitic mass] 29.1 pg 25.9-34.0 [facility] MCHC Auto (RBC) [Mass/Vol]Or dered By: Sarah Anne on 02-07-2025 MCHC (RBC) [Mass/Vol] 32.7 g/dL 29.9-35.2 [facility] MCV Auto (RBC) [Entitic vol] Ordered By: Sarah Anne on 02-07-2025 MCV (RBC) [Entitic vol] 89.1 fL 80.0-94.0 [facility] No Panel InformationOrdered By: Sarah Anne on 02-07-2025 Urine Occult Blood MODERATE Abnormal NEGATIVE [facility] Urine Random Creatinine 141.02 mg/dL 20.00-300. 00 [facility] 25-Hydroxy Vitamin D Total 26.1 ng/mL [facility] Comment on above: <20 ng/mL Vit D defi cient20-<30 ng/mL Vit D ciovanqaevjf32-532 ng/mL Vit D sufficient>100 ng/mL Potential Toxicity Parathyroid Hormone (Intact) 101 pg/mL Abnormal 15-65 [facility] Comment on above: Performed at: [id number] [place], [place] [id number] Director: Dionicio Clements PhD, Phone: [phone] Phosphorus Level 4.0 mg/dL 2.6-4.7 [facility] Platelet mean volume Auto (B ld) [Entitic vol]Ordered By: Sarah Anne on 02-07-2025 Platelet mean volume (Bld) [Entitic vol] 11.4 fL 9.5-13.5 [facility] Platelets Auto (Bld) [#/Vol] Ordered By: Sarah Anne on 02-07-2025 Platelets (Bld) [#/Vol] 179 10 3/uL 150-450 [facility] RBC Auto (Bld) [#/Vol]Ordere d By: Sarah Anne on 02-07-2025 RBC (Bld) [#/Vol] 3.95 10 6/uL Low 4.70-6.10 [facility] Renin activityOrdered By: Alhaji Anne on 02-07-2025 Renin (P) [Catalytic activity/Vol] <0.167 ng/mL/hr Abnormal 0.167-5.38 0 [facility] Comment on above: This test was develo ped and its performance characteristicsdetermined by [employer]. It has not been cleared orapproved by the Food and Drug Administration.Performed at: [address] [id number] Director: Paige Laura MD, Phone: [phone] Serum or plasma aldosterone measurement (mass/volume)Ordered By: Sarah Anne on 02-07-2025 Aldosterone [Mass/Vol] 14.9 ng/dL 0.0-30.0 [facility] Comment on above: This test was develo ped and its performance characteristicsdetermined by [employer]. It has not been cleared orapproved by the Food and Drug Administration.Performed at: [address] [id number] Director: Paige Laura MD, Phone: [phone] Serum or plasma anion gap de terminationOrdered By: Sarah Anne on 02-07-2025 Anion gap [Moles/Vol] 13.4 mmol/L [facility] Urine protein/creatinine rat ioOrdered By: Sarah Anne on 02-07-2025 Protein/Creatinine (U) [Ratio] 0.33 [facility] Office Visiton 01-06-2025 Follow-up visit [id number] [address] 1955 M Date Provider Department Center 01/06/2025 61213-GMCZANGELY MUNOZ [facility] Family History Problem Relation Age of Onset Coronary artery disease Mother Coronary artery disease Father Coronary artery disease Brother ALS Brother Stroke Brother Family Status - Relation Status Age at Mother Father Sister Alive Brother Level of Service:11596 [place] OFFICE/OUTPATIENT ESTABLISHED MOD MDM 30 MIN [facility] 36on 12-18-2024 36 RX for Xarelto sent to patient's pharmacy. Tried to contact patient and make him aware but his is not setup so I was unable to LM. [facility] 36 Patient called to wv kalia you aware he does not want to take Eliquis anymore due to fatigue. Says he was just sitting this morning eating breakfast and his nose began to bleed. He said he's willing to try something else. Can I send RX for Xarelto 20mg daily? Please advise. Thanks. [facility] ITPon 12-18-2024 [place] [address] Cardiac Rehab Report Signed Patient: LISA FULLER MR#: [id number] : 1955 Acct:[id number] Age/Sex: 69 / M ADM Date: 12/18/24 Loc: CR Attending Dr: Judi Wilson M.D. Ordering Physician: Judi Wilson M.D. Date of Service: 12/18/24 Procedure(s): [facility] Accession Number(s): [id number] cc: [facility] Test Date: 2024-12-18 Pat Name: LISA FULLER Department: Room: - Gender: Male Hand Tacker: : 1955 Requested By: JUDI WILSON Order Number: [id number] Elizabeth MD: Raphael Justin Interpretive Statements Okay to proceed with outlined treatment plan. Electronically Signed On 12-18-2024 16:43:09 EDT by Raphael Justin Dictated By: Raphael Justin D.O. Signed By: 12/18/24164212/18/241642 DD/ 1442 TD/TT: Director Of Campus Recreation: [facility] Radiology Radiologigor piper MD - 12/19/2024 [place] [address] Cardiac Rehab Report Signed Patient: LISA FULLER MR#: [id number] : 1955 Acct:[id number] Age/Sex: 69 / M ADM Date: 12/18/24 Loc: CR Attending Dr: Judi Wilson M.D. Ordering Physician: Judi Wilson M.D. Date of Service: 12/18/24 Procedure(s): ITP Accession Number(s): [id number] cc: [facility] Test Date: 2024-12-18 Pat Name: LISA FULLER Department: Room: - Gender: Male Hand Tacker: : 1955 Requested By: JUDI WILSON Order Number: [id number] Elizabeth MD: Raphael Justin Interpretive Statements Okay to proceed with outlined treatment plan. Electronically Signed On 12-18-2024 16:43:09 EDT by Raphael Justin Dictated By: Raphael Justin D.O. Signed By: 12/18/24164212/18/241642 DD/ 1442 TD/TT: Director Of Campus Recreation: [place] [address] Cardiac Rehab Report Signed Patient: LISA FULLER MR#: [id number] : 1955 Acct:[id number] Age/Sex: 69 / M ADM Date: 12/18/24 Loc: CR Attending Dr: Judi Wilson M.D. Ordering Physician: Raphael Justin D.O. Date of Service: 12/13/24 Procedure(s): ITP Accession Number(s): [id number] cc: [facility] Test Date: 2024-12-13 Pat Name: LISA FULLER Department: Room: - Gender: Male Hand Tacker: : 1955 Requested By: Raphael Justin Order Number: [id number] Reading MD: Raphael Justin Interpretive Statements Okay to proceed with outlined treatment plan. Electronically Signed On 12-18-2024 16:35:58 EDT by Raphael Justin Dictated By: Raphael Justin D.O. Signed By: 12/18/24 1636 12/18/24 1636 DD/ 132 TD/TT: Director Of Campus Recreation: [facility] Kwame Radiologigor piper MD - 12/19/2024 [place] [address] Cardiac Rehab Report Signed Patient: LISA FULLER MR#: [id number] : 1955 Acct:[id number] Age/Sex: 69 / M ADM Date: 12/18/24 Loc: CR Attending Dr: Judi Wilson M.D. Ordering Physician: Raphael Justin D.O. Date of Service: 12/13/24 Procedure(s): ITP Accession Number(s): [id number] cc: [facility] Test Date: 2024-12-13 Pat Name: LISA FULLER Department: Room: - Gender: Male Hand Tacker: : 1955 Requested By: Raphael Justin Order Number: [id number] Reading MD: Raphael Justin Interpretive Statements Okay to proceed with outlined treatment plan. Electronically Signed On 12-18-2024 16:35:58 EDT by Raphael Justin Dictated By: Raphael Justin D.O. Signed By: 12/18/24 1636 12/18/24 1636 DD/ 1327 TD/TT: Director Of Campus Recreation: [facility] Radiology Study observation (narrative) [facility] ITPOrdered By: Radiologist R adiology on 12-18-2024 [facility] Healthcare Work Phone: [facility] Healthcare Work Phone: ITPon 12-13-2024 Radiology Study observation (narrative) [facility] Follow-Upon 12-12-2024 Follow-Up [id number] Viri [address] L 1955 M Date Provider Department Center 12/12/2024 271-EDUARDO, EHAB BH [facility] Family History Problem Relation Age of Onset Coronary artery disease Mother Coronary artery disease Father Coronary artery disease Brother ALS Brother Stroke Brother Family Status - Relation Status Age at Mother Father Sister Alive Brother Level of Service:69535 [place] OFFICE/OUTPATIENT ESTABLISHED MOD MDM 30 MIN [facility] HPon 11-29-2024 HP H&P reviewed. The pa bahman was examined and there are no changes to the H&P. New onset atrial fibrillation with rapid ventricular response. He is referred for ACDEN guided cardioversion. He has been started on Eliquis. In addition he has at least moderate mitral regurgitation by recent transthoracic echocardiogram. We will also assess the severity of the mitral regurgitation by CADEN. [facility] NURSNOTEon 11-29-2024 NURSNOTE Bedside swallow stud y [...] off of unit with all of belongings. Normal [facility] Laboratory - Hematology and Cell countson 11-26-2024 HbA1c (Bld) [Mass fraction] 8.2 % [facility] No Panel Informationon 11-26 Interpretation and review of laboratory results Abnormal [facility] 36on 11-22-2024 36 Phone call for [facility] L ab 11/22/2024 Critical value on BNP of 2.595 please advise [facility] ALL BASIC METABOLIC PANELon 11-22-2024 Anion gap [Moles/Vol] 11.3 mmol/L [facility] Calcium [Mass/Vol] 8.5 mg/dL 8.5 - 10. 1 mg/dL [facility] Chloride [Moles/Vol] 105 mmol/L 98 - 10 7 mmol/L [facility] CO2 [Moles/Vol] 27.8 mmol/L 21.0 - 32.0 mmol/L [facility] Creatinine [Mass/Vol] 1.84 mg/dL High 0.70 - 1.30 mg/dL [facility] GFR/1.73 sq M.predicted CKD-EPI (S/P/Bld) [Vol rate/Area] 44 Low >=60 mL/min/1.7 3m [address] [facility] Glucose [Mass/Vol] 181 mg/dL High 74 - 106 mg/dL [facility] Potassium [Moles/Vol] 4.1 mmol/L 3.5 - 5.1 mmol/L [facility] Sodium [Moles/Vol] 140 mmol/L 136 - 145 mmol/L [facility] TBH EGFR-NON AF SAUDI ARABIAN 36 Low >=60 mL/min/1.7 3m [address] [facility] Urea nitrogen [Mass/Vol] 26 mg/dL High 7.0 - 18.0 mg/dL [facility] Urea nitrogen/Creatinine [Mass ratio] 14.1 mg/mg [facility] ALL PRO BNPon 11-22-2024 NT PRO B TYPE NATRIURETIC PEPT 2595 pg/mL Critically high NINF - 900.0 pg/mL [facility] Comment on above: RESULTS CALLED TO OLGUIN MA No Panel Informationon 11-22 Interpretation and review of laboratory results Abnormal [facility] HPon 11-13-2024 HP SUBJECTIVE Reason [...] he was recommended to follow-up with his portable feed mill operator, the patient had stated his PCP [...] encouraged him to reestablish care with his portable feed mill operator. He otherwise denies chest pain, palpitations, [...] Musculoskeletal: Inspect (more content not included)... Normal [facility] Office Visiton 11-13-2024 Follow-up visit [id number] Viri [address] L 1955 M Date Provider Department Center 11/13/2024 [id number], ADAM [facility] Family History Problem Relation Age of Onset Coronary artery disease Mother Coronary artery disease Father Coronary artery disease Brother ALS Brother Stroke Brother Family Status - Relation Status Age at Mother Father Sister Alive Brother Level of Service:70280 [place] OFFICE/OUTPATIENT ESTABLISHED HIGH MDM 40 MIN Normal [facility] CA ECHO DOPPLER COMPLETEon 0 11-08-2024 [place] [address] Cardiology Report Signed Patient: LISA FULLER MR#: [id number] : 1955 Acct:[id number] Age/Sex: 69 / M ADM Date: 11/07/24 Loc: CARD Attending Dr: Nikko Roche NP Ordering Physician: Nikko Roche NP Date of Service: 11/07/24 Procedure(s): CA echo doppler complete Accession Number(s): [id number] cc: SPENCER MAST ; Nikko Roche NP Patient Name: LISA FULLER MR#: [id number] : 1955 Exam Date: 11/07/2024 Ordering Doctor: [...] Valve Peak V (more content not included)... [facility] Radiology, Radiologi st, MD - 11/08/2024 [place] [address] Cardiology Report Signed Patient: LISA FULLER MR#: [id number] : 1955 Acct:[id number] Age/Sex: 69 / M ADM Date: 11/07/24 Loc: CARD Attending Dr: Nikko Roche NP Ordering Physician: Nikko Roche NP Date of Service: 11/07/24 Procedure(s): CA echo doppler complete Accession Number(s): [id number] cc: SPENCER MAST ; Nikko Roche NP Patient Name: LISA FULLER MR#: [id number] : 1955 Exam Date: 11/07/2024 Ordering Doctor: [...] MENJIVAR Signed By: 11/08/24940 DD/ 9 TD/TT: Director Of Campus Recreation: [facility] Radiology Study observation (narrative) [facility] CA ECHO DOPPLER COMPLETEOrde red By: Radiologist Radiology on 11-08-[address] [facility] Work Phone: ALL BASIC METABOLIC PANELon 10-11-2024 Anion gap [Moles/Vol] 14.2 mmol/L [facility] Calcium [Mass/Vol] 8.5 mg/dL 8.5 - 10. 1 mg/dL [facility] Chloride [Moles/Vol] 107 mmol/L 98 - 10 7 mmol/L [facility] CO2 [Moles/Vol] 26.7 mmol/L 21.0 - 32.0 mmol/L [facility] Creatinine [Mass/Vol] 1.66 mg/dL High 0.70 - 1.30 mg/dL [facility] GFR/1.73 sq M.predicted CKD-EPI (S/P/Bld) [Vol rate/Area] 50 Low >=60 mL/min/1.7 3m [address] [facility] Glucose [Mass/Vol] 188 mg/dL High 74 - 106 mg/dL [facility] Potassium [Moles/Vol] 3.9 mmol/L 3.5 - 5.1 mmol/L [facility] Sodium [Moles/Vol] 144 mmol/L 136 - 145 mmol/L [facility] TBH EGFR-NON AF SAUDI ARABIAN 41 Low >=60 mL/min/1.7 3m [address] [facility] Urea nitrogen [Mass/Vol] 34 mg/dL High 7.0 - 18.0 mg/dL [facility] Urea nitrogen/Creatinine [Mass ratio] 20.5 mg/mg [facility] ALL PRO BNPon 10-11-2024 NT PRO B TYPE NATRIURETIC PEPT 1046 pg/mL High NINF - 900.0 pg/mL [facility] No Panel Informationon 10-11 Interpretation and review of laboratory results Abnormal [facility] Office Visiton 10-04-2024 Follow-up visit [id number] Viri [address] Sr. 1955 M Date Provider Department Center 10/04/2024 [id number], ADAM [facility] Family History Problem Relation Age of Onset Coronary artery disease Mother Coronary artery disease Father Coronary artery disease Brother ALS Brother Stroke Brother Family Status - Relation Status Age at Mother Father Brother Level of Service:39032 [place] OFFICE/OUTPATIENT ESTABLISHED MOD MDM 30 MIN Normal [facility] MR shoulder RT wo conon MR shoulder RT wo con [facility] [place] [address] MRI Report Signed Patient: Lisa Fuller SR MR#: [id number] : 1955 Acct:[id number] Age/Sex: 69 / M ADM Date: 07/22/24 Loc: [facility] Room: Type: [facility] Attending Dr: Leidy Bennett APRN Copies [...] Valeriano Fuller M.D.07/22/2024 6:44 PM Dictation Location: [place] [address] Transcribed By: [facility] 07/22/241843 Dictated By: Valeriano Fuller II, MD 07/22/24 183 Signed By: 07/22/24 184 Normal [facility] Magnetic resonance imaging r eportOrdered By: Valeriano Fuller on 07-22-2024 Study report [facility] [address] MRI Report Signed Patient: Lisa Fuller MR#: [id number] : 1955 Acct:[id number] Age/Sex: 69 / M ADM Date: 5 Loc: [facility] Room: Type: [facility] Attending Dr: Leidy Bennett APRN Copies [...] Fuller II, MD 07/22/241831 Signed By: 07/22/241843 [facility] Work Phone: XR shoulder RT min 2V*on XR shoulder RT min 2V* [facility] [place] [address] XRay Report Signed Patient: Lisa Fuller SR MR#: [id number] : 1955 Acct:[id number] Age/Sex: 69 / M ADM Date: 06/25/24 Loc: [place] Room: Type: [facility] Attending Dr: Leidy Bennett APRN Copies to: Leidy Bennett APRN Ordering Provider: Leidy Bennett APRN Date of Service: 06/25/24 XR/XR shoulder RT min 2V*: [facility] RIGHT SHOULDER INJURY RIGHT SHOULDER - [...] 153 Signed By: 06/25/24 1537 Normal [facility] Office Visiton 02-26-2024 Follow-up visit [id number] Viri [address] rd Sr. 1955 M Date Provider Department Center 02/26/2024 [id number], JUDI [facility] Family History Problem Relation Age of Onset Coronary artery disease Mother Coronary artery disease Father Coronary artery disease Brother ALS Brother Stroke Brother Family Status - Relation Status Age at Mother Father Brother Level of Service:49416 [place] OFFICE/OUTPATIENT ESTABLISHED LOW MDM 20 MIN Normal [facility] Capillary blood glucose melania urement by glucometer (mass/volume)Ordered By: Davide Cobb on 10-30-2023 Glucose [Mass/Vol] 168 mg/dL Normal [facility] Comment on above: Random Glucose Refer ence Range is dependent on time and content of last meal. Glucose of more than 200 mg/dL in a nonstressed, ambulatory subject supports the diagnosis of Diabetes Mellitus. Result Comment: [place] [facility] Glucose Reference Range is dependent on time and content of last meal. Glucose of more than 200 mg/dL in a nonstressed, ambulatory subject supports the diagnosis of Diabetes Mellitus. Performed By: #### G LULS #### Point of Care testing , Glucose Poct Glucometerson 0 10-30-2023 Commemt1 Glu2: Cleaned Meter Normal [facility] Comment on above: Result Comment: PERF ORMED BY: [facility] [address] [place] [address] PATHOLOGIST GAMBLING SUPERVISOR HENOK YANEZ M.D. Performed By: #### G LULS #### Point of Care testing , Ck 10-30-2023 L Specimen: Received: 10/30/23 Status: ROSALINDA Hartley Num: [id number] Spec Type: Surgical Subm Dr: Davide Cobb MD Tissues: A Colon Biopsy (POLYP AT 20 CM) Procedures: HE/2, Gross/Micro L4 Age/ Patient Sex Location Account Attending Physician Lisa Fuller 68/M [place] [id number] Davide Cobb MD SPEC NUM: [id number] RECD: 10/30/23 STATUS: ROSALINDA HARTLEY NUM: [id number] IZAIAH: 10/30/[address]: Davide Cobb MD ENTERED: 10/30/23 [facility] DR: SPEC TYPE: Surgical DEPT: S ORDERED: HE/2, Gross/Micro L4 ORDERED: HE/2, Gross/Micro L4 Pathological Diagnosis Colon polyp biopsy at 20 cm: -Small tubular adenoma, removed Gross Description In formalin labeled polyp at 20 cm is one 0.6 x 0.4 x 0.2 cm piece of samuel-pink mucosa. Submitted entirely in A1. MALIKA/JOSE ANGEL Clinical history: Positive Cologuard CPT Codes 54553 Specimen: [id number] Received: 10/30/23 Status: ROSALINDA Hartley Num: [id number] Spec Type: Surgical Subm Dr: Davide Cobb MD Tissues: A Colon Biopsy (POLYP AT 20 CM) Procedures: NIKI/Kit, Gross/Micro L4 Patient: Lisa Fuller SR [id number] (Continued) Signed (signature on file) Tameka Lacey MD 11/01/23 1250 Normal [facility] No Panel InformationOrdered By: Davide Cobb on 10-30-2023 Bedside Glucose Comment Glu2: cleaned meter [facility] XR knee BI 4Von 08-31-2023 XR knee BI 4V [facility] [address] XRay Report Signed Patient: Lisa Fuller MR#: [id number] : 1955 Acct:[id number] Age/Sex: 68 / M ADM Date: 08/31/23 Loc: [facility] [place]: Type: [facility] Attending Dr: Jagdeep Stiles II, MD Copies to: Jagdeep Stiles MD Ordering Provider: Jagdeep Stiles MD Date of Service: 08/31/23 XR/XR pelvis 1-2V: M25.562 - Pain in left knee ([id number]) XR/XR knee BI 4V: M25.561 - Pain [...] Martin Jr., D.O.08/31/2023 3:26 PM Dictation Location: [place] [address] Transcribed By: [facility] 08/31/23 1526 Dictated By: Godwin Martin Jr, DO 08/31/23 1524 Signed By: 08/31/23 1526 Normal [facility] COVID/FLU/RSV RT-PCRon 08-02 SARS-CoV-2 (COVID-19) RNA ANGÉLICA+probe Ql (Unsp spec) Negative [facility] [employer] Other COVID/FLU/RSV RT-PCR Positive [facility] [employer] Other COVID/FLU/RSV RT-PCR [facility] [employer] Other ALBUMINon 09-08-2022 Albumin [Mass/Vol] 3.7 g/dL Normal 3.4-5.0 [facility] Comment on above: Performed By: #### P HOS, BMP, ALB, MG #### [facility] [address] [place] [address] Dr. Diamante Lacey CREATININE URINEon URINE CREAT 129.52 mg/dL Normal 20.00-300. 00 [facility] Comment on above: Performed By: #### C BIRGIT, PROTU #### [facility] [address] [place] [address] Dr. Diamante Lacey HEMOGLOBINon 09-08-2022 Hemoglobin (Bld) [Mass/Vol] 13.2 g/dL Critically low 14.0-18.0 [facility] Comment on above: Performed By: #### H GB #### [facility] [address] [place] [address] Dr. Diamante Lacey MAGNESIUMon 09-08-2022 Magnesium [Mass/Vol] 1.5 mg/dL Critically low 1.8-2.4 [facility] Comment on above: Performed By: #### P HOS, BMP, ALB, MG #### [facility] [address] [place] [address] Dr. Diamante Lacey PHOSPHORUSon 09-08-2022 Phosphate [Mass/Vol] 3.3 mg/dL Normal 2.6-4.7 [facility] Comment on above: Performed By: #### P HOS, BMP, ALB, MG #### [facility] [address] [place] [address] Dr. Diamante Lacey PROF CHEM 8 (BAS METB)on Anion gap [Moles/Vol] 9.6 mmol/L Normal [facility] Comment on above: Performed By: #### P HOS, BMP, ALB, MG #### [facility] [address] [place] [address] [address] Diamante Lacey Calcium [Mass/Vol] 8.9 mg/dL Normal 8.5-10.1 [facility] Comment on above: Performed By: #### P HOS, BMP, ALB, MG #### [facility] [address] [place] [address] Dr. Diamante Lacey Chloride [Moles/Vol] 106 mmol/L Normal 98-107 [facility] Comment on above: Performed By: #### P HOS, BMP, ALB, MG #### [facility] [address] [place] [address] Dr. Diamante Lacey CO2 [Moles/Vol] 30.5 mmol/L Normal 21.0-32.0 [facility] Comment on above: Performed By: #### P HOS, BMP, ALB, MG #### [facility] [address] [place] [address] Dr. Diamante Lacey Creatinine [Mass/Vol] 1.34 mg/dL Critically high 0.70-1.30 [facility] Comment on above: Performed By: #### P HOS, BMP, ALB, MG #### [facility] [address] [place] [address] Dr. Diamante Lacey EGFR-AF SAUDI ARABIAN >60 Normal >=60 [facility] Comment on above: Performed By: #### P HOS, BMP, ALB, MG #### [facility] [address] [place] [address] Dr. Diamante Lacey EGFR-NON AF SAUDI ARABIAN 53 mL/min/1.73m2 Critically low >=60 [facility] Comment on above: Performed By: #### P HOS, BMP, ALB, MG #### [facility] [address] [place] [address] Dr. Diamante Lacey Glucose [Mass/Vol] 121 mg/dL Critically high 74-106 [facility] Comment on above: Performed By: #### P HOS, BMP, ALB, MG #### [facility] [address] [place] [address] Dr. Diamante Lacey Potassium [Moles/Vol] 4.1 mmol/L Normal 3.5-5.1 [facility] Comment on above: Performed By: #### P HOS, BMP, ALB, MG #### [facility] [address] [place] [address] Dr. Diamante Lacey Sodium [Moles/Vol] 142 mmol/L Normal 136-145 [facility] Comment on above: Performed By: #### P HOS, BMP, ALB, MG #### [facility] [address] [place] [address] Dr. Diaamnte Lacey Urea nitrogen [Mass/Vol] 19.0 mg/dL Critically high 7.0-18.0 [facility] Comment on above: Performed By: #### P HOS, BMP, ALB, MG #### [facility] [address] [place] [address] Dr. Diamante Lacey Urea nitrogen/Creatinine [Mass ratio] 14.2 mg/mg Normal [facility] Comment on above: Performed By: #### P HOS, BMP, ALB, MG #### [facility] [address] [place] [address] Dr. Diamante Lacey PROTEIN RAND URINEon 023 UR PROT 15.5 mg/dL Critically high <=11.9 [facility] Comment on above: Performed By: #### C REAU, PROTU #### [facility] [address] [place] [address] Dr. Diamante Lacey CBC AUTO DIFFon 06-06-2022 BASO # 0.1 103/ul Normal 0.0-0.1 [facility] Comment on above: Performed By: #### B MP #### [facility] [address] [place] [address] Dr. Diamante Lacey Basophils/100 WBC (Bld) 0.8 % Normal 0.2-2.0 [facility] Comment on above: Performed By: #### B MP #### [facility] [address] [place] [address] Dr. Diamante Lacey EO # 0.2 103/ul Normal 0.0-0.7 [facility] Comment on above: Performed By: #### B MP #### [facility] [address] [place] [address] Dr. Diamante Lacey Eosinophils/100 WBC (Bld) 3.0 % Normal 0.9-7.0 [facility] Comment on above: Performed By: #### B MP #### [facility] [address] [place] [address] Dr. Diamante Lacey Erythrocyte distribution width (RBC) [Ratio] 14.2 % Normal 11.0-15.0 [facility] Comment on above: Performed By: #### B MP #### [facility] [address] [place] [address] Dr. Diamante Lacey Hematocrit (Bld) [Volume fraction] 41.4 % Critically low 42.0-54.0 [facility] Comment on above: Performed By: #### B MP #### [facility] [address] [place] [address] Dr. Diamante Lacey Hemoglobin (Bld) [Mass/Vol] 14.0 g/dL Normal 14.0-18.0 [facility] Comment on above: Performed By: #### B MP #### [facility] [address] [place] [address] Dr. Diamante Lacey IG # 0.03 10e3/ul Normal 0.00-0.03 [facility] Comment on above: Performed By: #### B MP #### [facility] [address] [place] [address] Dr. Diamante Lacey IG % 0.4 % Normal 0.0-0.5 [facility] Comment on above: Performed By: #### B MP #### [facility] [address] [place] [address] Dr. Diamante Lacey LYMPH # 1.8 103/ul Normal 1.2-3.8 [facility] Comment on above: Performed By: #### B MP #### [facility] [address] [place] [address] Dr. Diamante Lacey Lymphocytes/100 WBC (Bld) 23.0 % Normal 20.5-60.0 [facility] Comment on above: Performed By: #### B MP #### [facility] [address] [place] [address] Dr. Diamante Lacey MANUAL DIFF REQ NO Normal [facility] Comment on above: Performed By: #### B MP #### [facility] [address] [place] [address] Dr. Diamante Lacey MCH (RBC) [Entitic mass] 30.3 pg Normal 25.9-34.0 [facility] Comment on above: Performed By: #### B MP #### [facility] [address] [place] [address] Dr. Diamante Lacey MCHC (RBC) [Mass/Vol] 33.8 g/dL Normal 29.9-35.2 [facility] Comment on above: Performed By: #### B MP #### [facility] [address] [place] [address] Dr. Diamante Lacey MCV (RBC) [Entitic vol] 89.6 fL Normal 80.0-94.0 [facility] Comment on above: Performed By: #### B MP #### [facility] [address] [place] [address] Dr. Diamante Lacey MONO # 0.8 103/ul Normal 0.3-0.8 [facility] Comment on above: Performed By: #### B MP #### [facility] [address] [place] [address] Dr. Diamante Lacey Monocytes/100 WBC (Bld) 9.8 % Normal 1.7-12.0 [facility] Comment on above: Performed By: #### B MP #### [facility] [address] [place] [address] Dr. Diamante Lacey NEUT # 5.0 103/ul Normal 1.4-6.5 [facility] Comment on above: Performed By: #### B MP #### [facility] [address] [place] [address] Dr. Diamante Lacey Neutrophils/100 WBC (Bld) 63.0 % Normal 43.0-75.0 [facility] Comment on above: Performed By: #### B MP #### [facility] [address] [place] [address] [address] Diamante Lacey Platelet mean volume (Bld) [Entitic vol] 10.4 fL Normal 9.5-13.5 [facility] Comment on above: Performed By: #### B MP #### [facility] [address] [place] [address] [address] Diamante Lacey PLT 215 103/ul Normal 150-450 [facility] Comment on above: Performed By: #### B MP #### [facility] [address] [place] [address] [address] Diamante Lacey RBC 4.62 106/ul Critically low 4.70-6.10 [facility] Comment on above: Performed By: #### B MP #### [facility] [address] [place] [address] [address] Diamante Lacey WBC 7.9 103/ul Normal 4.0-11.0 [facility] Comment on above: Performed By: #### B MP #### [facility] [address] [place] [address] [address] Diamante Lacey CREATININE URINEon 2 URINE CREAT 46.09 mg/dL Normal 20.00-300. 00 [facility] Comment on above: Performed By: #### B MP #### [facility] [address] [place] [address] Dr. Diamante Lacey MAGNESIUMon 06-06-2022 Magnesium [Mass/Vol] 2.2 mg/dL Normal 1.8-2.4 [facility] Comment on above: Performed By: #### B MP #### [facility] [address] [place] [address] Dr. Diamante Lacey PHOSPHORUSon 06-06-2022 Phosphate [Mass/Vol] 4.9 mg/dL Critically high 2.6-4.7 [facility] Comment on above: Performed By: #### B MP #### [facility] [address] [place] [address] Dr. Diamante Lacey PROF 14(COMP METB)on 11-21-2 022 Albumin [Mass/Vol] 3.9 g/dL Normal 3.4-5.0 [facility] Comment on above: Performed By: #### B MP #### [facility] [address] [place] [address] Dr. Diamante Lacey Albumin/Globulin [Mass ratio] 1.3 {ratio} Normal [facility] Comment on above: Performed By: #### B MP #### [facility] [address] [place] [address] Dr. Diamante Lacey ALP [Catalytic activity/Vol] 80 U/L Normal 46-116 [facility] Comment on above: Performed By: #### B MP #### [facility] [address] [place] [address] Dr. Diamante Lacey ALT [Catalytic activity/Vol] 32 U/L Normal 16-63 [facility] Comment on above: Performed By: #### B MP #### [facility] [address] [place] [address] Dr. Diamante Lacey Anion gap [Moles/Vol] 10.5 mmol/L Normal [facility] Comment on above: Performed By: #### B MP #### [facility] [address] [place] [address] Dr. Diamante Lacey AST [Catalytic activity/Vol] 8 U/L Critically low 15-37 [facility] Comment on above: Performed By: #### B MP #### [facility] [address] [place] [address] Dr. Diamante Lacey Bilirubin [Mass/Vol] 0.6 mg/dL Normal 0.2-1.0 [facility] Comment on above: Performed By: #### B MP #### [facility] [address] [place] [address] Dr. Diamante Lacey Calcium [Mass/Vol] 9.4 mg/dL Normal 8.5-10.1 [facility] Comment on above: Performed By: #### B MP #### [facility] [address] [place] [address] Dr. Diamante Lacey Chloride [Moles/Vol] 103 mmol/L Normal 98-107 [facility] Comment on above: Performed By: #### B MP #### [facility] [address] [place] [address] [address] Diamante Lacey CO2 [Moles/Vol] 30.7 mmol/L Normal 21.0-32.0 [facility] Comment on above: Performed By: #### B MP #### [facility] [address] [place] [address] [address] Diamante Lacey Creatinine [Mass/Vol] 1.72 mg/dL Critically high 0.70-1.30 [facility] Comment on above: Performed By: #### B MP #### [facility] [address] [place] [address] [address] Diamante Lacey EGFR-AF SAUDI ARABIAN 48 mL/min/1.73m2 Critically low >=60 [facility] Comment on above: Performed By: #### B MP #### [facility] [address] [place] [address] [address] Diamante Lacey EGFR-NON AF SAUDI ARABIAN 40 mL/min/1.73m2 Critically low >=60 [facility] Comment on above: Performed By: #### B MP #### [facility] [address] [place] [address] [address] Diamante Lacey Globulin (S) [Mass/Vol] 3.1 g/dL Normal [facility] Comment on above: Performed By: #### B MP #### [facility] [address] [address] [address] Diamante Lacey Glucose [Mass/Vol] 137 mg/dL Critically high 74-106 [facility] Comment on above: Performed By: #### B MP #### [facility] [address] [address] [address] Diamante Lacey Potassium [Moles/Vol] 4.2 mmol/L Normal 3.5-5.1 [facility] Comment on above: Performed By: #### B MP #### [facility] [address] [address] [address] Diamante Lacey Protein [Mass/Vol] 7.0 g/dL Normal 6.4-8.2 [facility] Comment on above: Performed By: #### B MP #### [facility] [address] [address] [address] Diamante Lacey Sodium [Moles/Vol] 140 mmol/L Normal 136-145 [facility] Comment on above: Performed By: #### B MP #### [facility] [address] [place] [address] Dr. Diamante Lacey Urea nitrogen [Mass/Vol] 32.0 mg/dL Critically high 7.0-18.0 [facility] Comment on above: Performed By: #### B MP #### [facility] [address] [place] [address] Dr. Diamante Lacey Urea nitrogen/Creatinine [Mass ratio] 18.6 mg/mg Normal [facility] Comment on above: Performed By: #### B MP #### [facility] [address] [place] [address] Dr. Diamante Lacey PROTEIN RAND URINEon 022 UR PROT <6.0 Normal <=11.9 [facility] Comment on above: Performed By: #### B MP #### [facility] [address] [place] [address] Dr. Diamante Lacey UA RANDOM W/MICROSCOPICon BACTERIA NONE SEEN Normal NONE SEEN [facility] Comment on above: Performed By: #### B MP #### [facility] [address] [place] [address] Dr. Diamante Lacey Bilirubin Ql (U) Negative Normal NEGATIVE [facility] Comment on above: Performed By: #### B MP #### [facility] [address] [place] [address] Dr. Diamante Lacey CAST NONE SEEN Normal NONE SEEN [facility] Comment on above: Performed By: #### B MP #### [facility] [address] [place] [address] Dr. Diamante Lacey Clarity (U) CLEAR Normal CLEAR [facility] Comment on above: Performed By: #### B MP #### [facility] [address] [place] [address] Dr. Diamante Lacey Color (U) LT. YELLOW Normal YELLOW [facility] Comment on above: Performed By: #### B MP #### [facility] [address] [address] [address] Diamante Lacey Crystals LM Nom (Urine sed) NONE SEEN Normal NONE SEEN [facility] Comment on above: Performed By: #### B MP #### [facility] [address] [address] [address] Diamante Lacey Epithelial cells LM Ql (Urine sed) RARE Normal NONE SEEN /RARE [facility] Comment on above: Performed By: #### B MP #### [facility] [address] [address] [address] Diamante Lacey Glucose Ql (U) >1000 Abnormal NEGATIVE [facility] Comment on above: Performed By: #### B MP #### [facility] [address] [place] [address] Dr. Diamante Lacey Hemoglobin Ql (U) Negative Normal NEGATIVE [facility] Comment on above: Performed By: #### B MP #### [facility] [address] [place] [address] Dr. Diamante Lacey Ketones Ql (U) Negative Normal NEGATIVE [facility] Comment on above: Performed By: #### B MP #### [facility] [address] [address] [address] Diamante Lacey LEUKOCYTES Negative Normal NEGATIVE [facility] Comment on above: Performed By: #### B MP #### [facility] [address] [place] [address] Dr. Diamante Lacey MUCOUS NONE SEEN Normal NONE SEEN [facility] Comment on above: Performed By: #### B MP #### [facility] [address] [place] [address] Dr. Diamante Lacey Nitrite Ql (U) Negative Normal NEGATIVE [facility] Comment on above: Performed By: #### B MP #### [facility] [address] [place] [address] Dr. Diamante Lacey pH (U) 5.5 [pH] Normal 5-9 [facility] Comment on above: Performed By: #### B MP #### [facility] [address] [place] [address] Dr. Diamante Lacey RBC NONE SEEN Abnormal 0-2 [facility] Comment on above: Performed By: #### B MP #### [facility] [address] [place] [address] Dr. Diamante Lacey SPEC GRAVITY 1.020 Normal 1.005-<=1. 025 [facility] Comment on above: Performed By: #### B MP #### [facility] [address] [place] [address] Dr. Diamante Lacey UA PROTEIN Negative Normal NEGATIVE/ TRACE [facility] Comment on above: Performed By: #### B MP #### [facility] [address] [place] [address] Dr. Diamante Lacey Urobilinogen Qn (U) 0.2 {Iraida'U}/dL Normal 0.2 - 1. 0 [facility] Comment on above: Performed By: #### B MP #### [facility] [address] [place] [address] Dr. Diamante Lacey WBC NONE SEEN Normal NONE SEEN [facility] Comment on above: Performed By: #### B MP #### [facility] [address] [place] [address] Dr. Diamante Lacey PROF CHEM 8 (BAS METB)on Anion gap [Moles/Vol] 14.5 mmol/L Normal [facility] Comment on above: Performed By: #### B MP #### [facility] [address] [place] [address] Dr. Diamante Lacey Calcium [Mass/Vol] 9.3 mg/dL Normal 8.5-10.1 [facility] Comment on above: Performed By: #### B MP #### [facility] [address] [place] [address] Dr. Diamante Lacey Chloride [Moles/Vol] 103 mmol/L Normal 98-107 [facility] Comment on above: Performed By: #### B MP #### [facility] [address] [place] [address] Dr. Diamante Lacey CO2 [Moles/Vol] 28.0 mmol/L Normal 21.0-32.0 [facility] Comment on above: Performed By: #### B MP #### [facility] [address] [address] [address] Diamante Lacey Creatinine [Mass/Vol] 1.67 mg/dL Critically high 0.70-1.30 [facility] Comment on above: Performed By: #### B MP #### [facility] [address] [address] [address] Diamante Lacey EGFR-AF SAUDI ARABIAN 50 mL/min/1.73m2 Critically low >=60 [facility] Comment on above: Performed By: #### B MP #### [facility] [address] [address] [address] Diamante Lacey EGFR-NON AF SAUDI ARABIAN 41 mL/min/1.73m2 Critically low >=60 [facility] Comment on above: Performed By: #### B MP #### [facility] [address] [address] [address] Diamante Lacey Glucose [Mass/Vol] 165 mg/dL Critically high 74-106 [facility] Comment on above: Performed By: #### B MP #### [facility] [address] [address] [address] Diamante Lacey Potassium [Moles/Vol] 4.5 mmol/L Normal 3.5-5.1 [facility] Comment on above: Performed By: #### B MP #### [facility] [address] [address] [address] Diamante Lacey Sodium [Moles/Vol] 141 mmol/L Normal 136-145 [facility] Comment on above: Performed By: #### B MP #### [facility] [address] [address] [address] Diamante Lacey Urea nitrogen [Mass/Vol] 39.0 mg/dL Critically high 7.0-18.0 [facility] Comment on above: Performed By: #### B MP #### [facility] [address] [address] [address] Diamante Lacey Urea nitrogen/Creatinine [Mass ratio] 23.4 mg/mg Normal [facility] Comment on above: Performed By: #### B MP #### [facility] [address] [address] [address] Diamante Lacey PROF CHEM 8 (BAS METB)on Anion gap [Moles/Vol] 13.7 mmol/L Normal [facility] Comment on above: Performed By: #### B MP #### [facility] [address] [place] [address] Dr. Diamante Lacey Calcium [Mass/Vol] 9.0 mg/dL Normal 8.5-10.1 [facility] Comment on above: Performed By: #### B MP #### [facility] [address] [place] [address] Dr. Diamante Lacey Chloride [Moles/Vol] 102 mmol/L Normal 98-107 [facility] Comment on above: Performed By: #### B MP #### [facility] [address] [place] [address] Dr. Diamante Lacey CO2 [Moles/Vol] 29.3 mmol/L Normal 21.0-32.0 [facility] Comment on above: Performed By: #### B MP #### [facility] [address] [place] [address] Dr. Diamante Lacey Creatinine [Mass/Vol] 1.66 mg/dL Critically high 0.70-1.30 [facility] Comment on above: Performed By: #### B MP #### [facility] [address] [place] [address] Dr. Diamante Lacey EGFR-AF SAUDI ARABIAN 50 mL/min/1.73m2 Critically low >=60 [facility] Comment on above: Performed By: #### B MP #### [facility] [address] [place] [address] Dr. Diamante Lacey EGFR-NON AF SAUDI ARABIAN 41 mL/min/1.73m2 Critically low >=60 [facility] Comment on above: Performed By: #### B MP #### [facility] [address] [place] [address] Dr. Diamante Lacey Glucose [Mass/Vol] 137 mg/dL Critically high 74-106 [facility] Comment on above: Performed By: #### B MP #### [facility] [address] [address] [address] Diamante Lacey Potassium [Moles/Vol] 4.0 mmol/L Normal 3.5-5.1 [facility] Comment on above: Performed By: #### B MP #### [facility] [address] [address] [address] Diamante Lacey Sodium [Moles/Vol] 141 mmol/L Normal 136-145 [facility] Comment on above: Performed By: #### B MP #### [facility] [address] [address] [address] Diamante Lacey Urea nitrogen [Mass/Vol] 38.0 mg/dL Critically high 7.0-18.0 [facility] Comment on above: Performed By: #### B MP #### [facility] [address] [place] [address] Dr. Diamante Lacey Urea nitrogen/Creatinine [Mass ratio] 22.9 mg/mg Normal [facility] Comment on above: Performed By: #### B MP #### [facility] [address] [place] [address] Dr. Diamante Lacey NM STRESS ONLY SINGLEon 08-0 NM STRESS ONLY SINGLE Patient: INDIO FULLER Exam Date: 02/16/2022 : 1955 Gender:M Ordering : DR SPENCER MAST M.D. Admission #: [id number] Family : DR JUDI WILSON M.D. Order #: [id number] CLICK HERE TO VIEW EXAM RADIOLOGY REPORT [...] MD on 03/24/2022 at 11:54 Normal [facility] CBC AUTO DIFFon 01-27-2022 BASO # 0.1 103/ul Normal 0.0-0.1 [facility] Comment on above: Performed By: #### B MP #### [facility] [address] [place] [address] Dr. Diamante Lacey Basophils/100 WBC (Bld) 0.6 % Normal 0.2-2.0 [facility] Comment on above: Performed By: #### B MP #### [facility] [address] [place] [address] Dr. Diamante Lacey EO # 0.2 103/ul Normal 0.0-0.7 [facility] Comment on above: Performed By: #### B MP #### [facility] [address] [place] [address] Dr. Diamante Lacey Eosinophils/100 WBC (Bld) 2.6 % Normal 0.9-7.0 [facility] Comment on above: Performed By: #### B MP #### [facility] [address] [place] [address] Dr. Diamante Lacey Erythrocyte distribution width (RBC) [Ratio] 14.6 % Normal 11.0-15.0 [facility] Comment on above: Performed By: #### B MP #### [facility] [address] [place] [address] Dr. Diamante Lacey Hematocrit (Bld) [Volume fraction] 39.1 % Critically low 42.0-54.0 [facility] Comment on above: Performed By: #### B MP #### [facility] [address] [place] [address] Dr. Diamante Lacey Hemoglobin (Bld) [Mass/Vol] 12.8 g/dL Critically low 14.0-18.0 [facility] Comment on above: Performed By: #### B MP #### [facility] [address] [place] [address] Dr. Diamante Lacey IG # 0.02 10e3/ul Normal 0.00-0.03 [facility] Comment on above: Performed By: #### B MP #### [facility] [address] [place] [address] Dr. Diamante Lacey IG % 0.2 % Normal 0.0-0.5 [facility] Comment on above: Performed By: #### B MP #### [facility] [address] [place] [address] Dr. Diamante Lacey LYMPH # 1.7 103/ul Normal 1.2-3.8 [facility] Comment on above: Performed By: #### B MP #### [facility] [address] [place] [address] Dr. Diamante Lacey Lymphocytes/100 WBC (Bld) 20.8 % Normal 20.5-60.0 [facility] Comment on above: Performed By: #### B MP #### [facility] [address] [place] [address] Dr. Diamante Lacey MANUAL DIFF REQ NO Normal [facility] Comment on above: Performed By: #### B MP #### [facility] [address] [place] [address] Dr. Diamante Lacey MCH (RBC) [Entitic mass] 30.0 pg Normal 25.9-34.0 [facility] Comment on above: Performed By: #### B MP #### [facility] [address] [place] [address] Dr. Diamante Lacey MCHC (RBC) [Mass/Vol] 32.7 g/dL Normal 29.9-35.2 [facility] Comment on above: Performed By: #### B MP #### [facility] [address] [place] [address] Dr. Diamante Lacey MCV (RBC) [Entitic vol] 91.6 fL Normal 80.0-94.0 [facility] Comment on above: Performed By: #### B MP #### [facility] [address] [address] [address] Diamante Lacey MONO # 0.8 103/ul Normal 0.3-0.8 [facility] Comment on above: Performed By: #### B MP #### [facility] [address] [address] [address] Diamante Lacey Monocytes/100 WBC (Bld) 9.4 % Normal 1.7-12.0 [facility] Comment on above: Performed By: #### B MP #### [facility] [address] [address] [address] Diamante Lacey NEUT # 5.5 103/ul Normal 1.4-6.5 [facility] Comment on above: Performed By: #### B MP #### [facility] [address] [place] [address] Dr. Diamante Lacey Neutrophils/100 WBC (Bld) 66.4 % Normal 43.0-75.0 [facility] Comment on above: Performed By: #### B MP #### [facility] [address] [address] [address] Diamante Lacey Platelet mean volume (Bld) [Entitic vol] 11.3 fL Normal 9.5-13.5 [facility] Comment on above: Performed By: #### B MP #### [facility] [address] [address] [address] Diamante Lacey PLT 196 103/ul Normal 150-450 [facility] Comment on above: Performed By: #### B MP #### [facility] [address] [address] [address] Diamante Lacey RBC 4.27 106/ul Critically low 4.70-6.10 [facility] Comment on above: Performed By: #### B MP #### [facility] [address] [address] [address] Diamante Lacey WBC 8.3 103/ul Normal 4.0-11.0 [facility] Comment on above: Performed By: #### B MP #### [facility] [address] [place] [address] Dr. Diamante Lacey LIPASEon 01-27-2022 Lipase [Catalytic activity/Vol] 227.0 U/L Normal 73.0-393.0 [facility] Comment on above: Performed By: #### B MP #### [facility] [address] [place] [address] Dr. Diamante Lacey MAGNESIUMon 01-27-2022 Magnesium [Mass/Vol] 1.7 mg/dL Critically low 1.8-2.4 [facility] Comment on above: Performed By: #### M G #### [facility] [address] [place] [address] Dr. Diamante Lacey PROF 14(COMP METB)on 022 Albumin [Mass/Vol] 3.6 g/dL Normal 3.4-5.0 [facility] Comment on above: Performed By: #### B MP #### [facility] [address] [place] [address] Dr. Diamante Lacey Albumin/Globulin [Mass ratio] 1.4 {ratio} Normal [facility] Comment on above: Performed By: #### B MP #### [facility] [address] [place] [address] Dr. Diamante Lacey ALP [Catalytic activity/Vol] 88 U/L Normal 46-116 [facility] Comment on above: Performed By: #### B MP #### [facility] [address] [place] [address] Dr. Diamante Lacey ALT [Catalytic activity/Vol] 30 U/L Normal 16-63 [facility] Comment on above: Performed By: #### B MP #### [facility] [address] [place] [address] Dr. Diamante Lacey Anion gap [Moles/Vol] 15.7 mmol/L Normal [facility] Comment on above: Performed By: #### B MP #### [facility] [address] [place] [address] Dr. Diamante Lacey AST [Catalytic activity/Vol] 13 U/L Critically low 15-37 [facility] Comment on above: Performed By: #### B MP #### [facility] [address] [address] [address] Diamante Lacey Bilirubin [Mass/Vol] 0.5 mg/dL Normal 0.2-1.0 [facility] Comment on above: Performed By: #### B MP #### [facility] [address] [address] [address] Diamante Lacey Calcium [Mass/Vol] 8.5 mg/dL Normal 8.5-10.1 [facility] Comment on above: Performed By: #### B MP #### [facility] [address] [address] [address] Diamante Lacey Chloride [Moles/Vol] 106 mmol/L Normal 98-107 [facility] Comment on above: Performed By: #### B MP #### [facility] [address] [address] [address] Diamante Lacey CO2 [Moles/Vol] 24.4 mmol/L Normal 21.0-32.0 [facility] Comment on above: Performed By: #### B MP #### [facility] [address] [address] [address] Diamante Lacey Creatinine [Mass/Vol] 1.41 mg/dL Critically high 0.70-1.30 [facility] Comment on above: Performed By: #### B MP #### [facility] [address] [address] [address] Diamante Lacey EGFR-AF SAUDI ARABIAN >60 Normal >=60 [facility] Comment on above: Performed By: #### B MP #### [facility] [address] [address] [address] Diamante Lacey EGFR-NON AF SAUDI ARABIAN 50 mL/min/1.73m2 Critically low >=60 [facility] Comment on above: Performed By: #### B MP #### [facility] [address] [address] [address] Diamante Lacey Globulin (S) [Mass/Vol] 2.5 g/dL Normal [facility] Comment on above: Performed By: #### B MP #### [facility] [address] [address] [address] Diamante Lacey Glucose [Mass/Vol] 103 mg/dL Normal 74-106 [facility] Comment on above: Performed By: #### B MP #### [facility] [address] [address] [address] Diamante Lacey Potassium [Moles/Vol] 4.1 mmol/L Normal 3.5-5.1 [facility] Comment on above: Performed By: #### B MP #### [facility] [address] [address] [address] Diamante Lacey Protein [Mass/Vol] 6.1 g/dL Critically low 6.4-8.[address] [facility] Comment on above: Performed By: #### B MP #### [facility] [address] [address] [address] Diamante Lacey Sodium [Moles/Vol] 142 mmol/L Normal 136-145 [facility] Comment on above: Performed By: #### B MP #### [facility] [address] [address] [address] Diamante Lacey Urea nitrogen [Mass/Vol] 23.0 mg/dL Critically high 7.0-18.0 [facility] Comment on above: Performed By: #### B MP #### [facility] [address] [place] [address] Dr. Diamante Lacey Urea nitrogen/Creatinine [Mass ratio] 16.3 mg/mg Normal [facility] Comment on above: Performed By: #### B MP #### [facility] [address] [address] [address] Diamante Lacey TROPONIN, HIGH SENSITIVITYon 01-27-2022 HSTROP 15.5 pg/mL Normal 4.0-76.1 [facility] Comment on above: Result Comment: CUT- OFF POINTS HAVE BEEN ESTABLISHED BASED ON THE FOURTH UNIVERSAL DEFINITIONS OF MYOCARDIAL INFARCTION. THE UPPER REFERENCE LIMIT (URL) OF TROPONIN, DEFINED THE 99TH PERCENTILE OF cTnI DISTRIBUTION IN A REFERENCE POPULATION, HAS BEEN CONFIRMED THE DECISION THRESHOLD FOR [place] DIAGNOSIS. Performed By: #### B MP #### [facility] [address] [place], [place] [address] Dr. Diamante Lacey HSTROP 13.8 pg/mL Normal 4.0-76.1 [facility] Comment on above: Result Comment: CUT- OFF POINTS HAVE BEEN ESTABLISHED BASED ON THE FOURTH UNIVERSAL DEFINITIONS OF MYOCARDIAL INFARCTION. THE UPPER REFERENCE LIMIT (URL) OF TROPONIN, DEFINED THE 99TH PERCENTILE OF cTnI DISTRIBUTION IN A REFERENCE POPULATION, HAS BEEN CONFIRMED THE DECISION THRESHOLD FOR [place] DIAGNOSIS. Performed By: #### B MP #### [facility] [address] [place], [place] [address] Dr. Diamante Lacey XR CHEST 1 Von [...] ALBERTO RAE Date: 2022-01-27 19:00 Normal [facility] Office Visit (Cardiology)on 06-18-2021 Follow-up visit Patient [...] negative for complaint. Vitals Vital Signs Recorded: [id number] 01:30PMRecorded: [id number] 01:28PM [id number], RUE, Zyzbgnf198, LUE, Sitting Eqcgsquvp03, RUE, Cwwvnmq17, LUE, Sitting Heart Rate78, L Radial Height5 ft 10 in Ufsltw214 lb BMI Gzynrkgvdh93.72 kg/m2 BSA Calculated2.26 Physical Exam Constitutional: alert [...] No Panel Informationon 06-11 8.8\S\8.8 Normal 8.2-10.2 [facility] DO Work Phone: Comment on above: PERFORMED BY:[address] [address] [address] [place], [place] [id number] MEDICAL DIRECTORHENOK YANEZ M.D. 27.0\S\27.0 Normal 22.0-30.0 [facility] [address] DO Work Phone: [phone] 103\S\103 Normal 95-114 [facility] DO Work Phone: [phone] 4.4\S\4.4 Normal 3.5-5.1 [facility] DO Work Phone: [phone] 138\S\138 Normal 136-146 [facility] [address] DO Work Phone: [phone] 53\S\53 Normal [facility] DO Work Phone: Comment on above: GFR estimated refere nce range: According to KDOQI guidelines, <60 ml/min/1.73m2 is sufficient to diagnose a patient with chronic kidney disease. 44\S\44 Normal [facility] DO Work Phone: 1.59\S\1.59 above high threshold 0.64-1.27 -[facility] [facility] DO Work Phone: 25\S\25 above high threshold 9-[address] [facility] DO Work Phone: 143\S\143 above high threshold 70-100 -[facility] DO Work Phone: Comment on above: [...] Instructions By signing my name below, Mara Maritns LPN,Geniaibmaría, attest that this documentation has been [...] Vital Signs Recorded: 28May2021 02:21PMRecorded: 28May2021 02:13PM [id number], LUE, Rubirrp452, RUE, Sitting Hylindukv97, LUE, Ltoxubm049, RUE, Sitting Heart Rate71, Apical Height5 ft 10 in Ffvsjy914 lb BMI Rifhoxauls82.87 kg/m2 BSA Calculated2.27 Tobacco Useb) No Fall [...] S1 and (more content not included)... [employer] Tobacco Screening.on 021 Fall risk assessment a) No falls within the last year [facility] DO Work Phone: Tobacco use status [facility] b) No [facility] DO Work Phone: Vital Signs Date Time Vital Sign Value Performing Clinician Facility 02-26-2025 11:35-0400 Body height 175.3 cm Zoila Mosqueda NP Work Phone: [facility] 02-26-2025 11:35-0400 Body mass index (BMI) [Ratio] 34.7 kg/m2 Zoila Mosqueda NP Work Phone: [facility] 02-26-2025 11:35-0400 Body weight 106.59 kg Zoila Mosqueda NP Work Phone: [facility] 02-26-2025 11:35-0400 Diastolic blood pressure 82 mm[Hg] Zoila Mosqueda BUFFER [employer]PER Work Phone: [facility] 02-26-2025 11:35-0400 Heart rate 88 /min Zoila [place] [employer]PER Work Phone: [facility] 02-26-2025 11:35-0400 Respiratory rate 16 /min Zoila Mosqueda [employer] Work Phone: [facility] 02-26-2025 11:35-0400 SaO2% (BldA) [Mass fraction] 96 % Zoila Riverovely BU[employer]PER Work Phone: [facility] 02-26-2025 11:35-0400 Systolic blood pressure 182 mm[Hg] Zoila Mosqueda BUFFER [employer] Work Phone: [facility] 02-25-2025 14:21-0400 Diastolic blood pressure 131 mm[Hg] Spencer Mast MD Work Phone: [facility] 02-25-2025 14:21-0400 Heart rate 85 /min Spencer Mast MD Work Phone: [facility] 02-25-2025 14:21-0400 Systolic blood pressure 190 mm[Hg] Spencer Mast MD Work Phone: [facility] 02-25-2025 14:17-0400 Body height 177.8 cm Spencer Mast MD Work Phone: [facility] 02-25-2025 14:17-0400 Body mass index (BMI) [Ratio] 33.5 kg/m2 Spencer Mast MD Work Phone: [facility] 02-25-2025 14:17-0400 Body weight 105.91 kg Spencer Mast MD Work Phone: [facility] 02-25-2025 14:17-0400 Respiratory rate 16 /min Spencer Mast MD Work Phone: [facility] 02-25-2025 14:17-0400 SaO2% (BldA) [Mass fraction] 98 % Spencer Mast MD Work Phone: [facility] 12-04-2024 15:45-0400 Diastolic blood pressure 137 mm[Hg] Spencer Mast MD Work Phone: [facility] 12-04-2024 15:45-0400 Systolic blood pressure 187 mm[Hg] Spencer Mast MD Work Phone: [facility] 12-04-2024 15:35-0400 Body height 177.8 cm Spencer Mast MD Work Phone: [facility] 12-04-2024 15:35-0400 Body mass index (BMI) [Ratio] 36.6 kg/m2 Spencer Mast MD Work Phone: [facility] 12-04-2024 15:35-0400 Body weight 115.72 kg Spencer Mast MD Work Phone: [facility] 12-04-2024 15:35-0400 Heart rate 85 /min Specner Mast MD Work Phone: [facility] 12-04-2024 15:35-0400 Respiratory rate 18 /min Spencer Mast MD Work Phone: [facility] 12-04-2024 15:35-0400 SaO2% (BldA) [Mass fraction] 99 % Spencer Mast MD Work Phone: [facility] 11-26-2024 09:04-0400 Body height 175.3 cm Zoila Mosqueda [employer] Work Phone: [facility] 11-26-2024 09:04-0400 Body mass index (BMI) [Ratio] 37.95 kg/m2 Zoila Mosqueda [employer] Work Phone: [facility] 11-26-2024 09:04-0400 Body weight 116.57 kg Zoila Mosqueda [employer] Work Phone: [facility] 11-26-2024 09:04-0400 Diastolic blood pressure 92 mm[Hg] Zoila Mosqueda [employer] Work Phone: [facility] 11-26-2024 09:04-0400 Heart rate 46 /min Zoila Panda [employer] Work Phone: [facility] 11-26-2024 09:04-0400 Respiratory rate 17 /min Zoila [place] [employer] Work Phone: [facility] 11-26-2024 09:04-0400 SaO2% (BldA) [Mass fraction] 99 % Zoila [place] [employer] Work Phone: [facility] 11-26-2024 09:04-0400 Systolic blood pressure 168 mm[Hg] Zoila Mosqueda [employer] Work Phone: [facility] 08-14-2024 13:47-0500 Body height 175.26 cm Spencer Mast MD Work Phone: [facility] 08-14-2024 13:47-0500 Body mass index (BMI) [Ratio] 35.4 kg/m2 Spencer Mast MD Work Phone: [facility] 08-14-2024 13:47-0500 Body weight 108.86 kg Spencer Mast MD Work Phone: [facility] 08-01-2024 15:20-0500 Body height 175.3 cm Zoila Mosqueda [employer] Work Phone: [facility] 08-01-2024 15:20-0500 Body mass index (BMI) [Ratio] 36.27 kg/m2 Zoila Riverovely [employer] Work Phone: [facility] 08-01-2024 15:20-0500 Body weight 111.4 kg Zoila Mosqueda [employer] Work Phone: [facility] 08-01-2024 15:20-0500 Diastolic blood pressure 86 mm[Hg] Zoila Riverovely [employer] Work Phone: [facility] 08-01-2024 15:20-0500 Heart rate 105 /min Zoila Mosqueda [employer] Work Phone: [facility] 08-01-2024 15:20-0500 Respiratory rate 17 /min Zoila [place] [employer] Work Phone: [facility] 08-01-2024 15:20-0500 SaO2% (BldA) [Mass fraction] 96 % Zoila [place] [employer] Work Phone: [facility] 08-01-2024 15:20-0500 Systolic blood pressure 182 mm[Hg] Zoila Panda [employer] Work Phone: [facility] 06-20-2024 16:21-0500 Body height 175.3 cm Zoila Panda [employer] Work Phone: [facility] 06-20-2024 16:21-0500 Body mass index (BMI) [Ratio] 38.22 kg/m2 Zoila [place] [employer] Work Phone: [facility] 06-20-2024 16:21-0500 Body weight 117.39 kg Zoila Panda [employer] Work Phone: [facility] 06-20-2024 16:21-0500 Diastolic blood pressure 76 mm[Hg] Zoila Panda [employer] Work Phone: [facility] 06-20-2024 16:21-0500 Heart rate 67 /min Zoila [place] [employer] Work Phone: [facility] 06-20-2024 16:21-0500 Respiratory rate 17 /min Zoila Panda [employer] Work Phone: [facility] 06-20-2024 16:21-0500 SaO2% (BldA) [Mass fraction] 98 % Zoila Panda [employer] Work Phone: [facility] 06-20-2024 16:21-0500 Systolic blood pressure 138 mm[Hg] Zoila Panda [employer] Work Phone: [facility] 05-02-2024 15:27-0400 Body height 175.3 cm Zoila [place] [employer] Work Phone: [facility] 05-02-2024 15:27-0400 Body mass index (BMI) [Ratio] 36.48 kg/m2 Zoila [place] [employer] Work Phone: [facility] 05-02-2024 15:27-0400 Body weight 112.04 kg Zoila Panda [employer] Work Phone: [facility] 05-02-2024 15:27-0400 Diastolic blood pressure 92 mm[Hg] Zoila Panda [employer] Work Phone: [facility] 05-02-2024 15:27-0400 Heart rate 72 /min Zoila [place] [employer] Work Phone: [facility] 05-02-2024 15:27-0400 SaO2% (BldA) [Mass fraction] 95 % Zoila Panda [employer] Work Phone: [facility] 05-02-2024 15:27-0400 Systolic blood pressure 140 mm[Hg] Zoila Panda [employer] Work Phone: [facility] 10-30-2023 13:10-0400 Diastolic blood pressure 86 mm[Hg] MD Spencer Mast Work Phone: [facility] 10-30-2023 13:10-0400 Heart rate 62 /min MD Spencer Mast Work Phone: [facility] 10-30-2023 13:10-0400 Respiratory rate 16 /min MD Spencer Mast Work Phone: [facility] 10-30-2023 13:10-0400 SaO2% (BldA) [Mass fraction] 98 % MD Spencer Mast Work Phone: [facility] 10-30-2023 13:10-0400 Systolic blood pressure 140 mm[Hg] MD Spencer Mast Work Phone: [facility] 10-30-2023 12:40-0400 Inhaled oxygen flow rate 6 L/min MD Spencer Mast Work Phone: [facility] 10-30-2023 12:25-0400 Body height 175.26 cm MD Spencer Mast Work Phone: [facility] 10-30-2023 12:25-0400 Body mass index (BMI) [Ratio] 34.9 kg/m2 MD Spencer Mast Work Phone: [facility] 10-30-2023 12:25-0400 Body weight 107.5 kg MD Spencer Mast Work Phone: [facility] 10-30-2023 10:15-0400 Body temperature 97.7 [degF] MD Spencer Mast Work Phone: [facility] 08-31-2023 15:03-0500 Body height 175.26 cm MD Spencer Mast Work Phone: [facility] 08-31-2023 15:03-0500 Body mass index (BMI) [Ratio] 34.9 kg/m2 MD Spencer Mast Work Phone: [facility] 08-31-2023 15:03-0500 Body weight 107.5 kg MD Spencer Mast Work Phone: [facility] 08-29-2023 11:25-0500 Body mass index (BMI) [Ratio] 35.12 kg/m2 Zoila Mosqueda [employer] Work Phone: [facility] 08-29-2023 11:25-0500 Body weight 107.86 kg Zoila Mosqueda [employer] Work Phone: [facility] 08-29-2023 11:25-0500 Diastolic blood pressure 83 mm[Hg] Zoila Mosqueda [employer] Work Phone: [facility] 08-29-2023 11:25-0500 Heart rate 70 /min Zoila Mosqueda [employer] Work Phone: [facility] 08-29-2023 11:25-0500 Respiratory rate 14 /min Zoila Mosqueda [employer] Work Phone: [facility] 08-29-2023 11:25-0500 SaO2% (BldA) [Mass fraction] 95 % Zoila Mosqueda [employer] Work Phone: [facility] 08-29-2023 11:25-0500 Systolic blood pressure 140 mm[Hg] Zoila Mosqueda NP Work Phone: [facility] 08-02-2023 09:05-0500 Body height 175.26 cm Leidy Nerimond Other [facility] 08-02-2023 09:05-0500 Body mass index (BMI) [Ratio] 35.47 kg/m2 Leidy Nerimond Other [facility] [employer] Other 08-02-2023 09:05-0500 Body temperature 97.1 [degF] Leidy Nerimond Other [facility] [employer] Other 08-02-2023 09:05-0500 Body weight 108.95 kg Leidy Nerimond Other [facility] 08-02-2023 09:05-0500 Diastolic blood pressure 74 mm[Hg] Leidy Yaquelin Other [facility] 08-02-2023 09:05-0500 Respiratory rate 18 /min Leidy Nerimond Other [facility] [employer] Other 08-02-2023 09:05-0500 SaO2% (BldA) [Mass fraction] 89 % Leidy Nerimond Other [facility] [employer] Other 08-02-2023 09:05-0500 Systolic blood pressure 122 mm[Hg] Leidy Yaquelin Other [facility] 06-18-2021 13:30-0500 Diastolic blood pressure 80 mm[Hg] Rugen M Kinston [facility] [facility] Work Phone: 06-18-2021 13:30-0500 Systolic blood pressure 122 mm[Hg] Rugen M Kinston [facility] [employer] 250 DO Work Phone: 06-18-2021 13:28-0500 Body height 177.8 cm Rugen M Kinston Work Phone: [facility] 250 DO Work Phone: 06-18-2021 13:28-0500 Body mass index (BMI) [Ratio] 34.72 kg/m2 Rugen M Kinston Work Phone: [facility] 250 DO Work Phone: 06-18-2021 13:28-0500 Body surface area Derived from formula 2.26 m2 Rugen M Kinston Work Phone: [facility] 250 DO Work Phone: 06-18-2021 13:28-0500 Body weight 109.77 kg Rugen M Pro Work Phone: [facility] 250 DO Work Phone: 06-18-2021 13:28-0500 Diastolic blood pressure 72 mm[Hg] Rugen M Kinston Work Phone: [facility] 250 DO Work Phone: 06-18-2021 13:28-0500 Heart rate 78 /min Rugen M Pro Work Phone: [facility] 250 DO Work Phone: 06-18-2021 13:28-0500 Systolic blood pressure 124 mm[Hg] Rugen M Kinston Work Phone: [facility] 250 DO Work Phone: 05-28-2021 14:21-0500 Diastolic blood pressure 98 mm[Hg] Rugen M Pro Work Phone: [facility] 250 DO Work Phone: 05-28-2021 14:21-0500 Systolic blood pressure 160 mm[Hg] Rugen M Pro Work Phone: [facility] 250 DO Work Phone: 05-28-2021 14:13-0500 Body height 177.8 cm Rugen Deysi Pro Work Phone: [facility] 250 DO Work Phone: 05-28-2021 14:13-0500 Body mass index (BMI) [Ratio] 34.87 kg/m2 Rugen M Kinston Work Phone: [facility] 250 DO Work Phone: 05-28-2021 14:13-0500 Body surface area Derived from formula 2.27 m2 Rugen Deysi Pro Work Phone: [facility] 250 DO Work Phone: 05-28-2021 14:13-0500 Body weight 110.22 kg Rugen Deysi Pro Work Phone: [facility] 250 DO Work Phone: 05-28-2021 14:13-0500 Diastolic blood pressure 108 mm[Hg] Rugen Deysi Pro Work Phone: [facility] 250 DO Work Phone: 05-28-2021 14:13-0500 Heart rate 71 /min Rugen Deysi Kin[place] Work Phone: [facility] 250 DO Work Phone: 05-28-2021 14:13-0500 Systolic blood pressure 162 mm[Hg] Rugen M Pro Work Phone: [facility] 250 DO Work Phone: Encounters Encounter Date Encounter Type Care Provider Facility Start: 02-26-2025 End: 02-26-2025 Robelbomarcello flowsheet Zoila Mosqueda [employer] Work Phone: [facility] Start: 02-26-2025 End: 02-26-2025 Bamboo flowsheet Zoila Mosqueda [employer] Work Phone: [facility] Start: 02-26-2025 End: 02-26-2025 Office outpatient visit 15 minutes Zoila Mosqueda [employer] Work Phone: [facility] Comment on above: Type 2 diabetes trish itus with hyperglycemia, unspecified whether snf insulin use (HCC); Type 2 diabetes mellitus with stage 3 chronic kidney disease, with long-term current use of insulin, unspecified whether stage 3a or 3b CKD (HCC); Chronic kidney disease, stage 3b ([facility]-HCC) Start: 02-26-2025 End: 02-26-2025 ambulatory ZOILA MOSQUEDA Not Available Start: 02-25-2025 End: 02-25-2025 ambulatory Spencer Mast MD Work Phone: [facility] Work Phone: Start: 02-25-2025 End: 02-25-2025 Patient encounter procedure Sarah Anne MD -[facility] Work Phone: Start: 02-08-2025 End: 02-13-2025 Clinisync Result Encounter Generic External Data Provider [facility] External Department Unsolicited Start: 02-08-2025 End: 02-13-2025 Clinisync Result Encounter Generic External Data Provider [facility] External Department Unsolicited Start: 02-07-2025 End: 02-07-2025 Clinisync Result Encounter Generic External Data Provider [facility] External Department Unsolicited Start: 02-07-2025 End: 02-07-2025 Clinisync Result Encounter Generic External Data Provider [facility] External Department Unsolicited Start: 02-07-2025 Non-patient / Non-visit Sarah Anne MD -[facility] [employer] Work Phone: Start: 01-06-2025 End: 01-06-2025 ambulatory [facility] Start: 12-18-2024 End: 12-19-2024 Clinisync Result [...] Unsolicited Start: 12-12-2024 End: 12-12-2024 ambulatory EHAB [facility] Start: 12-04-2024 End: 12-04-2024 Patient encounter procedure Sarah Anne MD -[facility] Work Phone: Start: 11-29-2024 ambulatory MUSA MENJIVAR [facility] Start: 11-29-2024 End: 11-29-2024 ambulatory [facility]NAGED SERVICES SALES CONSULTANT [facility] Start: 11-26-2024 End: 11-26-2024 Bamboo flowsheet Zoila Mosqueda [employer] Work Phone: [facility] Start: 11-26-2024 End: 11-26-2024 Bamboo flowsheet Zoila Mosqueda [employer] Work Phone: [facility] Start: 11-26-2024 End: 11-26-2024 Office outpatient visit 15 minutes Zoila Mosqueda [employer] Work Phone: [facility] Comment on above: Insomnia, unspecifie d type (Primary Dx); Type 2 diabetes mellitus with hyperglycemia, unspecified whether moth exterminator insulin use ([facility]); Flatulence Start: 11-26-2024 End: 11-26-2024 ambulatory ZOILA MOSQUEDA Not Available Start: 11-22-2024 End: 11-22-2024 Clinisync Result Encounter Generic External Data Provider [facility] External Department Unsolicited Start: 11-22-2024 End: 11-22-2024 Clinisync Result Encounter Generic External Data Provider [facility] External Department Unsolicited Start: 11-13-2024 End: 11-13-2024 ambulatory NIKKO ROCHE [facility] Start: 11-08-2024 End: 11-08-2024 Clinisync Result [...] Start: 10-04-2024 End: 10-04-2024 ambulatory NIKKO ROCHE [facility] Start: 09-12-2024 End: 09-12-2024 ambulatory Spencer Mast MD Work Phone: [facility] Work Phone: Start: 09-12-2024 End: 09-12-2024 Patient encounter procedure Spencer [facility] Work Phone: Start: 09-05-2024 End: 09-16-2024 [...] Start: 08-19-2024 End: 08-19-2024 Bamboo flowsheet Oziel Nesston PT Work Phone: [facility] Start: 08-19-2024 End: 08-19-2024 Bamboo flowsheet Oziel Nesston PT Work Phone: [facility] Start: 08-15-2024 End: 08-16-2024 ambulatory Oziel Arellano PT Work Phone: [facility] Comment on above: Strain of right shou lder, initial encounter (Primary Dx) Start: 08-15-2024 End: 08-15-2024 Bamboo flowsheet Oziel Arellano PT Work Phone: [facility] Start: 08-15-2024 End: 08-15-2024 Bamboo flowsheet Ozile Arellano PT Work Phone: [facility] Start: 08-14-2024 End: 08-14-2024 ambulatory Spencer Mast MD Work Phone: [facility] Work Phone: Start: 08-14-2024 End: 08-14-2024 Patient encounter procedure Spencer Mast MD Work Phone: [facility] Work Phone: Start: 08-12-2024 End: 08-13-2024 ambulatory Jethro Ware [employer] [facility] Comment on above: Strain of right shou lder, initial encounter (Primary Dx) Start: 08-12-2024 End: 08-12-2024 Bamboo flowsheet Jethro Ware [employer] [facility] Start: 08-12-2024 End: 08-12-2024 Bamboo flowsheet Jethro Ware [employer] MANA[employer] [facility] Start: 08-08-2024 End: 08-08-2024 ambulatory OZIEL ARELLANO Not Available Start: 08-08-2024 End: 08-08-2024 Bamboo flowsheet Oziel Arellano PT Work Phone: [facility] Start: 08-08-2024 End: 08-08-2024 Bamboo flowsheet Oziel Arellano PT Work Phone: [facility] Start: 08-08-2024 End: 08-08-2024 ambulatory Spencer Mast MD Work Phone: [facility] Work Phone: Comment on above: Strain of right shou lder, initial encounter (Primary Dx) Start: 08-08-2024 End: 08-08-2024 Patient encounter procedure Spencer Mast MD Work Phone: [facility] Work Phone: Start: 08-06-2024 End: [...] Office outpatient visit 25 minutes Zoila Mosqueda [employer] Work Phone: [facility] Comment on above: Laryngitis (Primary Dx); Type 2 diabetes mellitus with hyperglycemia (CMS/HCC); Type 2 diabetes mellitus with diabetic chronic kidney disease (CMS/HCC); Chronic kidney disease, stage 3a (HCC) (CMS/HCC); Morbid (severe) obesity due to excess calories (CMS/HCC); Essential (primary) hypertension ([facility]/HCC); Body mass index (BMI) 38.0-38.9, adult; Pulmonary hypertension, unspecified ([facility]/HCC) Start: 08-01-2024 End: 08-01-2024 ambulatory ZOILA MOSQUEDA Not Available Start: 08-01-2024 End: 08-01-2024 Bamboo flowsheet Zoila Mosqueda [employer] Work Phone: [facility] Start: 08-01-2024 End: 08-01-2024 Bamboo flowsheet Zoila Mosqueda [employer] Work Phone: [facility] Start: 07-26-2024 End: 07-26-2024 ambulatory Spencer Mast MD Work Phone: [facility] Work Phone: Start: 07-26-2024 End: 07-26-2024 Patient encounter procedure Spencer Mast MD Work Phone: [facility] [address] Work Phone: Start: 07-25-2024 End: 07-25-2024 ambulatory Darryl Moncada [employer] [facility] Comment on above: Strain of right shou lder, initial encounter (Primary Dx) Start: 07-23-2024 End: 07-23-2024 ambulatory Darryl Moncada [employer] [facility] Comment on above: Strain of right shou lder, initial encounter (Primary Dx) Start: 07-23-2024 End: 07-23-2024 Bamboo flowsheet Darryl Moncada [employer] MANA[employer] [facility] Start: 07-23-2024 End: 07-23-2024 Bamboo flowsheet Darryl Moncada [employer] [facility] Start: 07-22-2024 End: 07-22-2024 Patient encounter procedure Spencer Mast MD Work Phone: [facility] [address] [facility] Work Phone: Start: 07-22-2024 End: 07-22-2024 ambulatory Spencer Mast MD Work Phone: [facility] Work Phone: Start: 07-18-2024 End: 07-18-2024 Bamboo flowsheet Leidy Jacome PT Work Phone: [facility] Start: 07-18-2024 End: 07-18-2024 Bamboo flowsheet Leidy Jacome PT Work Phone: [facility] Start: 07-18-2024 End: 07-18-2024 ambulatory Leidy Jacome PT Work Phone: [facility] Comment on above: Strain of right shou lder, initial encounter (Primary Dx) Start: 07-11-2024 End: 07-11-2024 Bamboo flowsheet Jethro Brink [employer] [facility] Start: 07-11-2024 End: 07-11-2024 Bamboo flowsheet Jethro Brink [employer] [facility] Start: 07-11-2024 End: 07-11-2024 ambulatory Jethro Brink [employer] [facility] Comment on above: Strain [...] Start: 07-04-2024 End: 07-04-2024 ambulatory Spencer Mast Facility:[facility] Start: 07-04-2024 End: 07-04-2024 Patient encounter procedure Spencer Mast MD Work Phone: [facility] [address] Work Phone: Start: 06-25-2024 End: 06-25-2024 Patient encounter procedure Spencer Mast MD Work Phone: [facility] [address] Work Phone: Start: 06-25-2024 End: 06-25-2024 ambulatory Spencer Mast Facility:[facility] Start: 06-20-2024 End: 06-20-2024 Office outpatient visit 25 minutes Zoila Mosqueda [employer] Work Phone: [facility] Comment on above: Laryngitis (Primary Dx) Start: 06-20-2024 End: 06-20-2024 ambulatory ZOILA MOSQUEDA Not Available Start: 06-20-2024 End: 06-20-2024 Bamboo flowsheet Zoila Mosqueda [employer] Work Phone: [facility] Start: 06-20-2024 End: 06-20-2024 Bamboo flowsheet Zoila Mosqueda [employer] Work Phone: [facility] Start: 05-02-2024 End: 05-02-2024 Office outpatient visit 25 minutes Zoila Mosqueda [employer] Work Phone: [facility] Comment on above: Laryngitis, acute (P rimary Dx); Acute pain of right knee Start: 05-02-2024 End: 05-02-2024 ambulatory ZOILA MOSQUEDA Not Available Start: 03-13-2024 End: 03-13-2024 ambulatory [facility] Work Phone: Start: 03-13-2024 End: 03-13-2024 Patient encounter procedure [facility] Work Phone: Start: 03-06-2024 End: 03-06-2024 ambulatory [facility] Work Phone: Start: 03-06-2024 End: 03-06-2024 Patient encounter procedure [facility] Work Phone: Start: 02-26-2024 End: 02-26-2024 ambulatory AB [facility] Start: 10-30-2023 End: 10-30-2023 Admission to same day surgery center MD Spencer Mast Work Phone: [facility] [place] Start: 10-30-2023 End: 10-30-2023 ambulatory MD Spencer Mast Work Phone: [facility] Work Phone: Start: 08-31-2023 End: 08-31-2023 ambulatory MD Spencer Mast Work Phone: [facility] Work Phone: Start: 08-31-2023 End: 08-31-2023 Patient encounter procedure MD Spencer Mast Work Phone: [facility] Work Phone: Start: 08-31-2023 End: 08-31-2023 Patient encounter procedure MD Spencer Mast Work Phone: [facility] Start: 08-31-2023 End: 08-31-2023 ambulatory MD Spencer Mast Work Phone: [facility] Work Phone: Start: 08-29-2023 Chart abstracting Zoila pan [employer] Work Phone: [facility] Start: 08-29-2023 End: 08-29-2023 Office outpatient visit 25 minutes Zoila Mosqueda [employer] Work Phone: [facility] Comment on above: Bronchitis (Primary Dx); Left non-suppurative otitis media Start: 08-02-2023 (URG) Urgent Care Visit Leidy paniagua [facility] Start: 08-02-2023 End: 08-02-2023 ambulatory Leidy Jamison Other [facility] [employer] Other Start: 08-02-2023 Telephone encounter Leidy Jamison [facility] Start: 08-02-2023 End: 08-02-2023 Patient encounter procedure MD Spencer Mast Work Phone: [facility]- Start: 09-08-2022 End: 09-09-2022 ambulatory [...] outpatient vi sit 15 minutes Rugen M Kinston Work Phone: [facility] [employer] 250 DO Work Phone: Start: 06-16-2021 NURSEVST, Provider: KAREN MORRIS CAR WHACKER 1,[id number], Status: Pen, Time: 1:00 PM Rugen M Kinston Work Phone: [facility] 250 DO Work Phone: Start: 06-14-2021 Chart Update Rugen M Pro Work Phone: [facility] 250 DO Work Phone: Start: 05-28-2021 Office consultation new/estab patient 60 min Rugen M Pro Work Phone: [facility] 250 DO Work Phone: Start: 05-28-2021 Patient encounter procedure Spencer Mast Work Phone: [facility] 250 DO Work Phone: Start: 08-30-2016 End: 08-31-2016 Ambulatory DEFAULT PHYSICIAN Facility:[facility] Procedures Date Procedure Procedure Detail Performing Clinician Start: 02-26-2025 Hemoglobin glycosyla yohana [id number] Zoila Mosqueda NP Work Phone: Start: 02-08-2025 METANEPHRINES, FRAC, QN, 24-HR Generic External Data Provider Start: 02-07-2025 Cortisol total Spencer Ocampo MD Work Phone: Comment on above: Please Note: The ref erence interval and flagging for this test is for an AM collection. If this is a PM collection please use: Cortisol PM: 2.3-11.9Performed at: [facility] [place] [id number] Director: Dionicio Clements PhD, Phone: [phone] Start: 02-07-2025 HMHP CBC WITH PLATEL ET NO DIFFERENTIAL Generic External Data Provider Start: 12-18-2024 ITP Generic Ex ternal Data Provider Start: 12-13-2024 ITP Generic Ex ternal Data Provider Start: 11-26-2024 Hemoglobin glycosyla yohana a1c Zoila Mosqueda NP Work Phone: Start: 11-22-2024 ALL BASIC [...] Phone: Start: 08-31-2023 X-ray of both knees Mikaelatelly Pro Work Phone: Appendectomy Spencer Jo Pro Work Phone: Coronary artery bypa ss graft Spencer Jo [place] Work Phone: Hernia repair Spencer Jo Pro Work Phone: History of coronary artery bypass grafting S/P CABG (coronary artery bypass graft) Spencer Jo Pro Work Phone: Lithotripsy Spencer Watkinsa Work Phone: Operative procedure on knee Spencer Mast Work Phone: NEGATED: Highlighted row has not occurred! Total colonoscopy Spencer Mast Work Phone: Plan of Treatment Date Care Activity Detail Author Start: 11-02-2033 Screening for malign ant neoplasm of colon [facility] Start: 08-20-2026 Screening for malign ant neoplasm of colon FIT-DNA [facility] Start: 08-28-2025 End: 08-28-2025 Patient encounter procedure 08/28/2025 1:00 PM EST [facility] [address] [facility] [address] [place] [id number] Zoila Mosqueda NP [address] [facility] [address] [place] [address] [facility] Start: 06-16-2025 Influenza vaccination [facility] Comment on above: Postponed from 03/17 (Other Medical Reasons) Postponed from 03/17 (Other Medical Reasons) Start: 05-29-2025 Hemoglobin A1c measurement Diabetes: Hemoglobin A1C [facility] Start: 03-17-2025 Influenza vaccination Influenza Vacc ine (#1) [facility] Start: 02-26-2025 Hemoglobin A1c measurement Diabetes: Hemoglobin A1C [facility] Start: 02-26-2025 End: 02-26-2025 Patient encounter procedure [facility] Comment on above: Arrived Start: 02-25-2025 Patient referral [facility] Work Phone: Start: 01-10-2025 Urine screening for protein Diabetes: Urine Protein Screening [facility] Start: 11-26-2024 End: 11-26-2024 Patient encounter procedure [facility] Comment on above: Arrived Start: 11-08-2024 Urine screening for protein Diabetes: Urine Protein Screening [facility] Start: 08-28-2024 End: 08-28-2024 ambulatory 08/28/2024 5:00 PM EST Treatment [facility] [address] [place] [address] Jethro Ware PTA [facility] Start: 08-26-2024 End: 08-26-2024 ambulatory 08/26/2024 4:30 PM EST Treatment [facility] [address] [place] [address] Oziel Arellano, PT [address] [place] [address] Arrived [facility] Comment on above: Arrived Start: 08-21-2024 End: 08-21-2024 ambulatory 08/21/2024 4:00 PM EST Treatment [facility] [address] [place] [address] Oziel Arellano, PT [address] [place] [address] [facility] Start: 08-19-2024 End: 08-19-2024 [...] [address] [place] [address] Zoila Mosqueda, BUFFER COPPER [address] [place] [address] Arrived [facility] Comment on above: Arrived Start: 07-25-2024 End: 07-25-2024 ambulatory 07/25/2024 2:30 PM EST Treatment [facility] [address] [place] [address] Darryl Moncada, CARBON SEQUESTRATION PLANT MANAGER [facility] Start: 07-23-2024 End: 07-23-2024 [...] [address] [place] [address] Petty Jimenez, CARBON SEQUESTRATION PLANT MANAGER [facility] Start: 07-11-2024 End: 07-11-2024 ambulatory [facility] Comment on above: Strain of right shou lder, initial encounter (Primary Dx) Start: 07-09-2024 End: 07-09-2024 ambulatory 07/09/2024 8:30 AM EST Evaluation [facility] [address] [place] [address] Oziel Arellano, PT [address] [place] [address] [facility] Start: 06-20-2024 End: 06-20-2024 Patient encounter procedure 06/20/2024 4:30 PM EST Office Visit [facility] [address] [place] [address] Zoila Mosqueda NP [address] [place] [address] Arrived [facility] Comment on above: [...] Visit [facility] [address] [facility] [address] [place] [address] Zoila Mosqueda NP [address] [facility] [address] [place] [address] [facility] Start: 03-06-2024 Patient referral [facility] Work Phone: Start: 01-14-2024 Influenza vaccination Influenza Vacc ine (#1) [facility] Comment on above: Postponed from 03/17 (Other Patient Reasons) Start: 10-30-2023 [facility] Start: 10-04-2023 Hemoglobin A1c measurement Diabetes: Hemoglobin A1C [facility] Start: 09-04-2023 End: 09-04-2023 Patient encounter procedure 09/04/2023 2:30 PM EST Office Visit [facility] [address] [place] [address] Spencer Mast MD [address] [place] [address] [facility] Start: 08-29-2023 End: 08-29-2023 Patient encounter procedure 08/29/2023 11:30 AM EST Office Visit [facility] [address] [facility] [address] [place] [id number] Zoila Mosqueda NP [address] [place] [address] [facility] Start: 01-21-2022 Screening for malign ant neoplasm of colon [facility] Start: 12-29-2021 FUV, Provider: Juanito Peterson, Status: Pen, Time: 1:40 PM FUV, Provider: Juanito Peterson, Status: Pen, Time: 1:40 PM [facility] DO Work Phone: Start: 08-25-2021 FUV, Provider: Juanito Peterson, Status: Pen, Time: 1:30 PM FUV, Provider: Juanito Peterson, Status: Pen, Time: 1:30 PM [facility] 250 DO Work Phone: Start: 06-16-2021 NURSEVST, Provider: KAREN MORRIS CAR WHACKER 1,[id number], Status: Pen, Time: 1:00 PM NURSEVST, Provider: KAREN MORRIS CAR WHACKER 1,[id number], Status: Pen, Time: 1:00 PM [facility] 250 DO Work Phone: Start: 1972 Pneumococcal Vaccine : 65+ Years (1 of 2 - PCV) Pneumococcal Vaccine: 65+ Years (1 of 2 - PCV) [facility] Start: 1959 Pneumococcal Vaccine : 65+ Years (1 of 2 - PCV) Pneumococcal Vaccine: 65+ Years (1 of 2 - PCV) [facility] Start: 1953 Screening for malign ant neoplasm of colon [facility] Patient Education Colonoscopy (D C) Colon Polypectomy (DC) [facility] Work Phone: Patient referral [facility] Work Phone: Renal function 1999 panel - Serum or Plasma [facility] Renal function 1999 panel - Serum or Plasma [facility] US Unspecified body region [facility] Immunizations Immunization Date Immunization Notes Care Provider Fa cility 11-11-2020 Pfizer-BioNTech COVI D-19 Vacc 30 MCG/0.3ML Intramuscular Suspension Rugen M Pro Work Phone: [facility] 250 DO Work Phone: 10-21-2020 Pfizer-BioNTech COVI D-19 Vacc 30 MCG/0.3ML Intramuscular Suspension Rugen M [place] Work Phone: [facility] 250 DO Work Phone: Payers Date Payer Category Payer Medicare (Managed Care) [facility] [place] [address] [id number] 2024 Medicare [id number] 2024 Medicare [id number] 2024 Unknown [id number] 2024 Worker's Compensation [id number] 2024 Worker's Compensation 1.2.84 [id number] 2023 Self-pay [id number] 2017 Blue Cross Blue Shield 1.2.8 [id number] 2017 Unknown 2017 Unknown [id number] 1959 Unknown [id number] 1953 Unknown [id number] 2.16.840.1.060585.3.579.2. 593 1953 Unknown [id number] 2.16.840.1.960547.3.579.2. 593 1953 Unknown [id number] 2.16.840.1.517618.3.579.2. 593 1953 Unknown [id number] 2.16.840.1.181104.3.579.2. 593 1953 Unknown [id number] 2.16.840.1.339347.3.579.2. 593 1953 Unknown [id number] 2.16.840.1.693025.3.579.2. 593 1953 Unknown [id number] 2.16.840.1.559960.3.579.2. 593 1953 Unknown [id number] 2.16.840.1.910506.3.579.2. 1259 1953 Unknown [id number] 2.16.840.1.374328.3.579.2. 1259 1953 Unknown [id number] 2.16.840.1.032831.3.579.2. 1259 1953 Unknown [id number] 2.16.840.1.416260.3.579.2. 1259 1953 Unknown [id number] 2.16.840.1.954659.3.579.2. 1258 1953 Unknown [id number] 2.16.840.1.620727.3.579.2. 1258 1953 Unknown [id number] 2.16.840.1.177632.3.579.2. 1258 1953 Unknown [id number] 2.16.840.1.279280.3.579.2. 1258 1953 Unknown [id number] 2.16.840.1.412800.3.579.2. 1258 1953 Unknown [id number] 2.16.840.1.368578.3.579.2. 1258 1953 Unknown [id number] 2.16840.1.887860.3.579.2. 1258 1953 Unknown [id number] 2.16.840.1.541734.3.579.2. 1258 1953 Unknown [id number] 2.840.1.486921.3.579.2. 1258 1953 Unknown [id number] 2.16.840.1.119283.3.579.2. 1258 1953 Unknown [id number] 2.16840.1.990245.3.579.2. 1258 1953 Unknown [id number] 2.16.840.1.423128.3.579.2. 1258 1953 Unknown [id number] 2.16.840.1.825435.3.579.2. 1258 1953 Unknown [id number] 2.16.840.1.710412.3.579.2. 1258 1953 Unknown [id number] 2.16.840.1.868303.3.579.2. 1259 1953 Unknown [id number] 2.16.840.1.384239.3.579.2. 1258 1953 Unknown [id number] 2.16.840.1.805062.3.579.2. 1258 1953 Unknown [id number] 2.16.840.1.911663.3.579.2. 1258 1953 Unknown [id number] 2.16.840.1.788198.3.579.2. 1258 1953 Unknown [id number] 2..840.1.956820.3.579.2. 1258 1953 Unknown [id number] 2..840.1.390362.3.579.2. 1258 1953 Unknown [id number] 2.840.1.158612.3.579.2. 1258 1953 Unknown [id number] 2..840.1.907804.3.579.2. 1258 1953 Unknown [id number] 2..840.1.860893.3.579.2. 1258 1953 Unknown [id number] 2.840.1.348404.3.579.2. 1258 1953 Unknown [id number] 2.840.1.342748.3.579.2. 1259 Unknown [facility] [id number] Unknown [id number] 2.16.840.1.238716.3.579.2. 531 Unknown [id number] 2.16.840.1.580385.3.579.2. 531 Unknown [id number] 2.16.840.1.398305.3.579.2. 531 Unknown [id number] 2..840.1.064220.3.579.2. 531 Unknown [id number] 2.16.840.1.126467.3.579.2. 531 Unknown [id number] 2.16.840.1.436638.3.579.2. 531 Social History Date Type Detail Facility Start: 08-07-2023 End: 02-26-2025 No illicit drug use No illicit drug use -[facility] 250 DO Work Phone: Comment on above: Quit 43 years ago; Start: 08-07-2023 End: 02-26-2025 Sex Assigned At [facility] Superfeedr Other Start: 02-14-[address] [facility] Never smoked tobacco [facility] Start: 02-14-2023 Tobacco use and exposure Smokeless tobacco non-user [facility] Start: 08-07-2023 End: 02-26-2025 Alcohol intake Lifetime non-drinker (finding) [facility] Start: 1955 Sex Assigned At Not on file [facility] Start: 08-02-2023 End: 02-25-2025 Tobacco smoking status FLIS Ex-smoker (finding) [facility] Start: 1955 Sex Assigned At Male F [facility] Start: 07-23-2024 End: 09-12-2024 Sex Male (finding) [facility] Goals Date Patient Goal Desired Activity /State Functional Status Date Assessment Result Facility 02-26-2025 Patient Health Quest ionnaire 2 item (PHQ-2) [Reported] [facility] 11-26-2024 Patient Health Quest ionnaire 2 item (PHQ-2) [Reported] [facility] Clinical Notes 05-27-2021 to 02-26-2025 Zoila Mosqueda NP - 02/26/2025 11:30 AM EDT Note Date & Type Note Facility 02-26-2025 History of Present illness Narrative Images from the original note were not included. Subjective Patient ID: Lisa Fuller is a 69 y.o. male who presents for No chief complaint on file.. Lisa presents today for a follow up for [...] being taken. He does not see a pilot boat deckhand.Eye exam is not current. Over the past [...] 2 diabetes mellitus with hyperglycemia, unspecified whether moth exterminator insulin use (HCC) - POCT glycosylated hemoglobin [...] unspecified whether stage 3a or 3b CKD ([facility]) - POCT glycosylated hemoglobin (Hb A1C) docked device This is a chronic medical condition that is stable since last assessment. No changes in treatment are suggested at this time. Chronic kidney disease, stage 3b ([facility]-HCC) This is a chronic medical condition that is stable since last assessment. No changes in treatment are suggested at this time. Pt is followed by nephrology. He is spilling protein in his urine and the protein in his 24 hours urine is high. He may benefit from Kerendia. Will discuss with pt after he sees Ren and has his ablation with cardiology. No follow-ups on file. documented in this encounter [facility] 02-25-2025 Hospital Discharge instructions Ambulatory OrdersReferral to Endocrinology Time Frame: 02/25/25, Location: None [facility] Work Phone: 02-19-2025 Note 02/19/25 Patient called the office to let us know that he would want to proceed with AF Ablation. PFA using Farapulse Angely Munoz MD, ScM, MSc Cardiac Cement Mixer Email: [email or web address] 01-06-2025 Note Cardiac Electrophysi ology Consultation Reason for Consult: Atrial fibrillation, prior electrical cardioversion Referring Recreational Counselor/PCP: No ref. provider found HPI: Lisa is [...] syncope/presyncope. Electrophysiology History: Early persistent atrial fibrillation, [id number] score of 5 based on age, hypertension, [...] Value Ventricular Rate 62 Atrial Rate 62 FL Interval 168 QRS DURATION 92 QT Interval 476 QTC CALCULATION(BAZETT) 483 P [place] 74 R-[place] 21 T Wave [place] -15 Impression Sinus rhythm with occasional Premature ventricular complexes Prolonged QT Abnormal ECG Compared to tracing of 29-NOV-2024 09:47 Sinus rhythm has replaced Atrial fibrillation Confirmed by Yvonne GRANGER, L.S. (2) on 11/29/2024 11:34:20 AM I personally reviewed this EKG and assessed the findings myself Transesophageal echo (CADEN) Result Date: 11/29/2024 1 [facility] [address] [place] [address] [phone] (fax) Transesophageal Echocardiogram-[facility] Name: LISA FULLER Study Date: 11/29/2024 10:13 AM B/P: 164 mmHg/122 mmHg HR: Date of : 1955 Location: [facility] Height: 70 in. Age: 69 year(s) Patient Room: Weight: 257 lb. Gender: Male Patient Status: OutPt BSA: 2.32 m2 Indication: Atrial Fibrillation, Pre-cardioversion, Mitral regurgitation Examination: CADEN (Transesophageal Echo / CFI), Limited Doppler Image Quality: Adequate Patient Consent: Informed, written consent was obtained for the procedure Examination: A CADEN was performed without complications Exam Location: A CAEDN was performed in the Docket Specialist without complications Anesthesia Pharyngeal anesthesia with viscous [...] is normal si (more content not included)... [facility] 12-12-2024 Note [facility] Cardiology Clinic Note Chief Complaint: Patient [...] kidney disease, Coronary artery disease, Diabetes mellitus (CMS/HCC), Hypertension, and Sleep apnea. Surgical History He [...] saphenous vein fro (more content not included)... [facility] 12-04-2024 Evaluation note Diagnosis Onset Date Resolution Diabetic nephropathy associated with type 2 diabetes mellitus acute December 04, 2024 3:34pm Hypertensive nephropathy acute May 21st, 2025 3:34pm Stage 3b chronic kidney disease acute December 04, 2024 3:34pm Anemia of renal disease acute A ugust 2024 2:13pm Diabetic nephropathy associated with type 2 diabetes mellitus acute February 25, 025 2:13pm Hyperaldosteronism acute February 25, 2025 2:13pm Hypertensive nephropathy acute February 25, 2025 2:13pm Stage 3b chronic kidney disease acute February 25 2:13pm [facility] Work Phone: 1(650) 285-754505-16-2025 NotePatient: Lisa Fuller Procedure Information Date/Time: 11/29/24 1035 Procedure: Cardioversion - PC APPROVED Location: [facility] DRY DRUG WORKER HOLDING ROOM / [facility] (Cath) Providers: Musa Menjivar MD [...] who consented to blood products. [facility] History of Present illness Narrative* Zoila Mosqueda, IBIS - 11/26/2024 9:00 AM EDT Images from the original note [...] 2 diabetes mellitus with hyperglycemia, unspecified whether snf insulin use ([facility]) - POCT Glycated hemoglobin, total A1C elevated. Pt does not want any adjustments to medications. He wants to try to get it down with his diet. Discussed today the importance of proper diabetic control. Discussed possible complications of diabetes, including loss of vision, renal failure, increased risk of heart attacks and strokes,blood vessel and/or nerve damage. Reviewed the recommended changes to reduce your blood sugars and m inimize the risk of these complications. Reviewed diabetic goals, including keeping A1C <7.0% and blood pressure < 130/70. The plan for achieving these goals is adherence to medications, maintaining a healthy and balanced diet, and regular activity as discussed during today's visit. Discussedcurrent barriers to achieving these goals. Discussed dietary goals. Discussed decreasing carbohydrates and simple sugar intake. Reviewed portion control with the patient. If the patient still has questions on this, a referral to a Dietitian can be arranged. Reviewed medications that aid in diabeticcontrol. Discussed proper dosing and educated the patient [...] No follow-ups on file. documented in this encounterThe [facility] Institute of St. [id number] NoteSUBJECTIVE Reason for Visit: Lisa Fuller is a [...] he was recommended to follow-up with his portable feed mill operator, the patient had stated his PCP [...] encouraged him to reestablish care with his portable feed mill operator. He otherwise denies chest pain, palpitations, [...] and soft. Musculoskeletal: Inspect (more content not included)...[facility]03-21-2025 NoteSUBJECTIVE Reason for Visit: Lisa Fuller Sr. is a 69 y.o. year old male patient being seen for follow-up visit. HPI: Lisa Fuller Sr. is a 69 y.o. year old male with past medical history of CAD status post CABG, hypertension, CKD, CELESTINA, obesity, and palpitations. In his previous visit in February 2024, he was recommended to follow-up with his portable feed mill operator, the patient had stated his PCP [...] encouraged him to reestablish care with his portable feed mill operator. He otherwise denies chest pain, palpitations, [...] Every evening lisinopril 4 (more content not included)...[facility] 09-16-2024 Telephone encounter Note* Telephone Encounter - Abeba Garcia - 09/16/2024 11:13 AM EST 4 attempts w/ no contact; unable to lm. [facility] [id number] Miscellaneous Notes* Telephone Encounter - Abeba Garcia - 09/16/2024 11:13 AM EST 4 attempts w/ no contact; unable to lm. * Telephone Encounter - Abeba Garcia - 09/10/2024 4:09 PM EST 3 attempts unable to contact. * Telephone Encounter - Abeba Garcia - 09/05/2024 9:48 AM EST Tried to contact to note receiving ext of C-9 for the 1 visit to = 12 PT. I called and confirmed the ext date was for 1 remaining PT; I was told yes, and when that is used another request can be sentin for more auth. documented in this encounterThe [facility] Institute of St. [id number] Telephone encounter Note* Telephone Encounter - Abeba Garcia - 09/10/2024 4:09 PM EST 3 attempts unable to contact. [facility] [id number] Telephone encounter Note* Telephone Encounter - Abeba Garcia - 09/05/2024 9:48 AM EST Tried to contact to note receiving ext of C-9 for the 1 visit to = 12 PT. I called and confirmed the ext date was for 1 remaining PT; I was told yes, and when that is used another request can be sentin for more auth. [facility] [id number] History of Present illness Narrative* Oziel Favio Arellano, PT - 08/26/2024 4:30 PM EST Images from the original [...] Difficulty sleeping at night. No injection. Work: [employer] (still working but on light duty). Precautions: [...] get measurement and recommend to continue PT for3-4 additional weeks to help him continue to improve shoulder strength to return to PLOF. Outcome Measure: 58/80 Short Term Goal: To be met in 2 weeks Goal 1: Pt to be instructed in home exercise program. Glaucoma Specialist Goals: To be met in 10 weeks [...] Please sign below. Date: documented in this encounterThe Rehabilitation Institute of St. [id number] History of Present illness Narrative* Oziel Arellano, PT - 08/19/2024 4:00 PM EST Images from the original note [...] Difficulty sleeping at night. No injection. Work: [employer] (still working but on light duty). Precautions: [...] to be instructed in home exercise program. [facility] Goals: To be met in 10 weeks [...] Please sign below. Date: documented in this encounterThe Rehabilitation Institute of St. [id number] History of Present illness Narrative* Oziel Arellano, PT - 08/15/2024 4:00 PM EST Images from the original note [...] Difficulty sleeping at night. No injection. Work: [employer] (still working but on light duty). Precautions: [...] to be instructed in home exercise program. Glaucoma Specialist Goals: To be met in 10 weeks [...] Please sign below. Date: documented in this encounterThe Rehabilitation Institute of St. [id number] History of Present illness Narrative* Oziel Arellano, PT - 08/08/2024 4:00 PM EST Images from the original note [...] Difficulty sleeping at night. No injection. Work: [employer] (still working but on light duty). Precautions: [...] to be instructed in home exercise program. [facility] Goals: To be met in 10 weeks [...] Please sign below. Date: documented in this [facility]01-23-2025 Evaluation note* Diagnosis Onset Date Resolution Status Admit Date Strain of unspecified muscle , fascia and tendon at shoulder and upper arm l acute August 08 9:47am Superior glenoid labrum lesi on of right shoulder, initial encounter acute August 08 9:47am [facility] Work Phone: 1(712) 610-761201-23-2025 Evaluation note* Diagnosis Onset Date Resolution Status [...] ght knee acute September 12, 025 8:15am [facility] Work Phone: 1(194) 259-391401-21-2025 History of Present illness Narrative* Oziel Arellano, [...] Difficulty sleeping at night. No injection. Work: [employer] (still working but on light duty). Precautions: open heart surgery 6 bypass (2015) Subjective: Pt reports of improved shoulder ROM. Had MRI and show minimal tear in SLAP. Had ortho appointment on 08/[address] Olexa. Pain: 4/10 with activity Objective: PT Evaluation [...] to be instructed in home exercise program. Glaucoma Specialist Goals: To be met in 10 weeks [...] Please sign below. Date: documented in this encounterThe Rehabilitation Institute of St. [id number] History of Present illness Narrative* Zoila Mosqueda, BUFFER COPPER - 08/01/2024 3:30 PM EST Images from [...] Left Nephrolithiasis, nonobstructing Hypertension (CMS/HCC) Myocardial infarction ([facility]) CELESTINA (obstructive sleep apnea) Past Surgical History: [...] No follow-ups on file. documented in this encounterThe Rehabilitation Institute of St. [id number] History of Present illness Narrative* Leidy Jacome, [...] Difficulty sleeping at night. No injection. Work: [employer] (still working but on light duty). Precautions: [...] to be instructed in home exercise program. [facility] Goals: To be met in 10 weeks [...] Please sign below. Date: documented in this encounterThe [facility] Institute of St. [id number] History of Present illness Narrative* Oziel Arellano, [...] Difficulty sleeping at night. No injection. Work: [employer] (still working but on light duty). Precautions: [...] to be instructed in home exercise program. Glaucoma Specialist Goals: To be met in 10 weeks [...] Please sign below. Date: documented in this encounterThe Rehabilitation Institute of St. [id number] Telephone encounter Note* Telephone Encounter - Abeba Garcai - 07/08/2024 11:45 AM EST Scheduled him out to 07/18/24 w/ PT. [facility] [id number] Miscellaneous Notes* Telephone Encounter - Abeba Garcia - 07/08/2024 11:45 AM EST Scheduled him out to 07/18/24 w/ PT. * Telephone Encounter - Abeba Garcia - 07/05/2024 1:12 PM EST Tried to contact to set up PT, going thru [facility], w/ 12 visits dated out to 08/06/24. There was no answer and voicemail was full. documented in this encounterThe Rehabilitation Institute of St. LouisObgqasozvj64-07-2113 Telephone encounter Note* Telephone Encounter - Abeba Garcia - 07/05/2024 1:12 PM EST Tried to contact to set up PT, going thru [facility], w/ 12 visits dated out to 08/06/24. There was no answer and voicemail was full. [facility] LouisNnphrrpgxt31-73-3578 History of Present illness Narrative* Zoila Mosqueda, BUFFER COPPER - 06/20/2024 4:30 PM EST Images from [...] No follow-ups on file. documented in this encounterThe Rehabilitation Institute of St. LouisYucopkwfhb29-94-6163 History of Present illness Narrative* Zoila Mosqueda [...] No follow-ups on file. documented in this encounterThe Rehabilitation Institute of St. [id number] [facility] Chief Complaint: [...] furosemide a few months ago. HPI: Lisa Mathis Jonny Smiley is a 68 y.o. male Who has [...] not taking his spirono (more content not included)...[facility]02-13-2024 History of Present illness Narrative* Zoila Mosqueda, BUFFER COPPER - 08/29/2023 11:30 AM EST Subjective Patient [...] Get plenty of rest. documented in this encounterThe Rehabilitation Institute of St. [id number] Evaluation note* Encounter Date Diagnosis Assessment Notes Treatment Notes Treatment Clinical Notes Jul, Contact with and (suspected) exposure to covid-19 (ICD-10 - Z20.822) Jul, Influenza A (ICD-10 - J10.1) Patient left the urgent care prior to receiving the results of his PCR COVID, influenza, RSV testing. He was not seen by the provider. Will attempt to notify patient of his results. [facility] Other 12-03-2021 History of Present illness NarrativePatient [...] exercise and weight loss were reviewed with him.-[facility]-Ravalli 250 DO Work Phone: [phone] History of Present illness Narrative* Patient is [...] will do the best he can. -[facility]-Bo 250 DO Work Phone: Evaluation noteNo [facility] Other Evaluation note* Diagnosis Bronchitis- Primary Bronchitis, not specified as acute or chronic Left non-suppurative otitis media Nonsuppurative otitis media, not specified as acute or chronic documented in this encounter [facility] Healthcare[facility]* Diagnosis Onset Date Resolution Status Bilateral primary osteoarthritis of knee acute Knee pain, left acute Knee pain, right acute [facility] Work Phone: Evaluation note* Diagnosis Onset Date Resolution Status Bilateral primary osteoarthritis of knee acute [facility] Work Phone: Evaluation note* Diagnosis Onset Date Resolution Status Bilateral primary osteoarthritis of knee acute Bilateral primary osteoarthritis of knee acute Chronic pain acute Knee pain, left acute Knee pain, right acute [facility] Work Phone: Evaluation note* Diagnosis Primary hypertension ([facility]/HCC)- Primary Unspecified essential hypertension 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) ([facility]) Influenza Influenza with other respiratory manifestations 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) ([facility])- Primary Abnormal glucose tolerance test Impaired glucose tolerance test Benign essential hypertension ([facility]/HCC) Essential hypertension, benign Type 2 diabetes mellitus with microalbuminuria, without long-term current use of insulin ([facility]) Primary hypertension ([facility]/HCC) Unspecified essential hypertension Type 2 diabetes mellitus with hyperglycemia, without long-term current use of insulin ([facility]) Pulmonary hypertension, unspecified (I27.20) Laryngitis, acute- Primary Acute laryngitis, without mention of obstruction Acute pain of right knee documented in this encounter [facility] HealthcareEvaluation note* Diagnosis Primary hypertension ([facility]/HCC)- Primary Unspecified essential hypertension 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) ([facility]) Influenza Influenza with other respiratory manifestations 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) ([facility]/HCC)- Primary Abnormal glucose tolerance test Impaired glucose tolerance test Benign essential hypertension ([facility]/HCC) Essential hypertension, benign Type 2 diabetes mellitus with microalbuminuria, without long-term current use of insulin ([facility]/HCC) Primary hypertension ([facility]/HCC) Unspecified essential hypertension Type 2 diabetes mellitus with hyperglycemia, without long-term current use of insulin ([facility]) Pulmonary hypertension, unspecified (I27.20) Laryngitis- Primary Acute laryngitis, without mention of obstruction documented in this encounter [facility]* Diagnosis Primary hypertension ([facility]/HCC)- Primary Unspecified essential hypertension 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) ([facility]) Influenza Influenza with other respiratory manifestations 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) ([facility]/HCC)- Primary Abnormal glucose tolerance test Impaired glucose tolerance test Benign essential hypertension ([facility]) Essential hypertension, benign Type 2 diabetes mellitus with microalbuminuria, without long-term current use of insulin ([facility]) Primary hypertension ([facility]) Unspecified essential hypertension Type 2 diabetes mellitus with hyperglycemia, without long-term current use of insulin ([facility]) Pulmonary hypertension, unspecified (I27.20) Strain of right shoulder, initial encounter- Primary documented in this encounter [facility]* Diagnosis Primary hypertension ([facility]/HCC)- Primary Unspecified essential hypertension 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) ([facility]) Influenza Influenza with other respiratory manifestations 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) ([facility]/HCC)- Primary Abnormal glucose tolerance test Impaired glucose tolerance test Benign essential hypertension ([facility]/HCC) Essential hypertension, benign Type 2 diabetes mellitus with microalbuminuria, without long-term current use of insulin ([facility]/HCC) Primary hypertension ([facility]/HCC) Unspecified essential hypertension Type 2 diabetes mellitus with hyperglycemia, without long-term current use of insulin ([facility]) Pulmonary hypertension, unspecified (I27.20) Strain of right shoulder, initial encounter- Primary documented in this encounter [facility]* Diagnosis Primary hypertension ([facility]/HCC)- Primary Unspecified essential hypertension 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) ([facility]) Influenza Influenza with other respiratory manifestations [...] initial encounter- Primary documented in this encounter [facility] HealthcareEvaluation note* Diagnosis Primary hypertension (CMS/HCC)- Primary [...] initial encounter- Primary documented in this encounter [facility] HealthcareEvaluation noteNo assessment information availableChillic[facility] Work Phone: Evaluation note* Diagnosis [...] initial encounter- Primary documented in this encounter [facility] HealthcareEvaluation note* Diagnosis Primary hypertension (CMS/HCC)- Primary Unspecified essential hypertension 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) (CMS/HCC) Influenza Influenza with other respiratory manifestations 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) ([facility]/HCC)- Primary Abnormal glucose tolerance test Impaired glucose tolerance test Benign essential hypertension ([facility]/HCC) Essential hypertension, benign Type 2 diabetes mellitus with microalbuminuria, without long-term current use of insulin ([facility]/HCC) Primary hypertension ([facility]/HCC) Unspecified essential hypertension Type 2 diabetes mellitus with hyperglycemia, without long-term current use of insulin ([facility]) Pulmonary hypertension, unspecified (I27.20) Laryngitis- Primary Acute laryngitis, without mention of obstruction Type 2 diabetes mellitus with hyperglycemia ([facility]/HCC) Type 2 diabetes mellitus with diabetic chronic kidney disease ([facility]) Chronic kidney disease, stage 3a (HCC) ([facility]) Morbid (severe) obesity due to excess calories ([facility]) Essential (primary) hypertension ([facility]) Unspecified essential hypertension Body mass index (BMI) 38.0-38.9, adult Pulmonary hypertension, unspecified ([facility]) documented in this encounter [facility] HealthcareEvaluation note* Diagnosis Primary hypertension ([facility]/HCC)- Primary Unspecified essential hypertension 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) ([facility]) Influenza Influenza with other respiratory manifestations 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) ([facility]/HCC)- Primary Abnormal glucose tolerance test Impaired glucose tolerance test Benign essential hypertension ([facility]/HCC) Essential hypertension, benign Type 2 diabetes mellitus with microalbuminuria, without long-term current use of insulin ([facility]) Primary hypertension ([facility]) Unspecified essential hypertension Type 2 diabetes mellitus with hyperglycemia, without long-term current use of insulin ([facility]) Pulmonary hypertension, unspecified (I27.20) Strain of right shoulder, initial encounter- Primary documented in this encounter [facility] HealthcareEvaluation note* Diagnosis Onset Date Resolution Status Admit Date Strain of unspecified muscle , fascia and tendon at shoulder and upper arm l acute August 08 9:47am Superior glenoid labrum lesi on of right shoulder, initial encounter acute August 08 9:47am [facility] Work Phone: Evaluation note* Diagnosis Primary hypertension ([facility]/HCC)- Primary Unspecified essential hypertension 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) ([facility]) Influenza Influenza with other respiratory manifestations 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) ([facility])- Primary Abnormal glucose tolerance test Impaired glucose tolerance test Benign essential hypertension ([facility]) Essential hypertension, benign Type 2 diabetes mellitus with microalbuminuria, without long-term current use of insulin ([facility]) Primary hypertension ([facility]) Unspecified essential hypertension Type 2 diabetes mellitus with hyperglycemia, without long-term current use of insulin ([facility]) Pulmonary hypertension, unspecified (I27.20) Strain of right shoulder, initial encounter- Primary documented in this encounter [facility] HealthcareEvaluation note* Diagnosis Primary hypertension ([facility])- Primary Unspecified essential hypertension 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) ([facility]) Influenza Influenza with other respiratory manifestations 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) ([facility])- Primary Abnormal glucose tolerance test Impaired glucose tolerance test Benign essential hypertension ([facility]) Essential hypertension, benign Type 2 diabetes mellitus with microalbuminuria, without long-term current use of insulin ([facility]) Primary hypertension ([facility]) Unspecified essential hypertension Type 2 diabetes mellitus with hyperglycemia, without long-term current use of insulin ([facility]) Pulmonary hypertension, unspecified (I27.20) Insomnia, unspecified type- Primary Type 2 diabetes mellitus with hyperglycemia, unspecified whether moth exterminator insulin use ([facility]) Flatulence Flatulence, eructation, and gas pain documented in this encounter [facility] HealthcareEvaluation note* Diagnosis Primary hypertension- Primary Unspecified essential hypertension 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) Influenza Influenza with other respiratory manifestations 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)- Primary Abnormal glucose tolerance test Impaired glucose tolerance test Benign essential hypertension Essential hypertension, benign Type 2 diabetes mellitus with microalbuminuria, without long-term current use of insulin ([facility]) Primary hypertension Unspecified essential hypertension Type 2 diabetes mellitus with hyperglycemia, without long-term current use of insulin ([facility]) Pulmonary hypertension, unspecified (I27.20) Type 2 diabetes mellitus with hyperglycemia, unspecified whether snf insulin use ([facility]) Type 2 diabetes mellitus with stage 3 chronic kidney disease, with long-term current use of insulin, unspecified whether stage 3a or 3b CKD (HCC) Chronic kidney disease, stage 3b (CMS-HCC) documented in this encounter [facility] HealthcareHistory general Narrative - Reported* Type Description Date Medical History HTN Medical History Arthritis Medical History Diabetes Medical History Hx of [place] Medical History Hyperlipidemia Medical History Coronary artery disease Surgical History Appendectomy Surgical History Arthroscopy, bilateral knees Surgical History Hernia Surgical History Left hand Surgical History heart bypass graft x 6 Surgical History cataract removal Hospitalization History See above [facility] Other Hospital Discharge instructionsAmbulatory Orders* Referral to Pain Management Time Frame: 03/06/24, Location: None [facility] Work Phone: Reason for visit Narrative* Rehabilitation - Outpatient (Routine) - Authorized Specialty Diagnoses / Procedures Referred By Chivo savage Referred To Contact Physical Therapy Diagnoses Strain of unspecified muscle, fascia and tendon at shoulder and upper arm level, right arm, initial encounter Procedures FL PHYSICAL THERAPY EVALUATION LOW COMPLEX 20 MINS FL OFFICE/OUTPATIENT NEW HIGH Leidy Fu MD [address] [place] [id number] Phone: tel: fax: [facility] [address] [facility] [address] [place] [address] Phone: tel: fax: Referral ID Status Reason Start Date Expiration Date V isits Requested Visits Authorized [id number] Authorized 06/25/2024 08/06/2024 12 12 [facility] HealthcareReason for visit Narrative* Rehabilitation - Outpatient (Routine) - Authorized Specialty Diagnoses / Procedures Referred By Chivo savage Referred To Contact Physical Therapy Diagnoses Strain of unspecified muscle, fascia and tendon at shoulder and upper arm level, right arm, initial encounter Procedures [place] PHYSICAL THERAPY EVALUATION LOW COMPLEX 20 MINS FL OFFICE/OUTPATIENT NEW HIGH Leidy Fu MD [address] [place] [address] Phone: tel: fax: [facility] [address] [facility] [address] [place] [address] Phone: tel: fax: Referral ID Status Reason Start Date Expiration Date V isits Requested Visits Authorized [id number] Authorized 06/25/2024 12 12 [facility] HealthcareReason for visit Narrative* Rehabilitation - Outpatient (Routine) - Authorized Specialty Diagnoses / Procedures Referred By Chivo t Referred To Contact Physical Therapy Diagnoses Strain of unspecified muscle, fascia and tendon at shoulder and upper arm level, right arm, initial encounter Procedures [place] PHYSICAL THERAPY EVALUATION LOW COMPLEX 20 MINS FL OFFICE/OUTPATIENT NEW HIGH MDM Leidy Bennett MD [address] [place] [address] [place] [address] Phone: tel: fax: [facility] [address] [facility] [address] [place] [address] Phone: tel: fax: Referral ID Status Reason Start Date Expiration Date V isits Requested Visits Authorized [id number] Authorized 06/25/2024 08/30/2024 12 12 [facility] Healthcare Summary Purpose Family History No Family [...] of knee Chief Complaint 3 MONTHS CONSULT [facility] TEE KNEE PAIN Reason for Visit Bilateral [...] 28pm S46.911A July 26, 2024 2 :30pm [facility] DOI 06/24/24 RT SHOULDER INJURY MRI F [facility] August 08, 2024 9:47am Reason for Visit [...] 28pm S46.911A July 26, 2024 2 :30pm [facility] DOI 06/24/24 RT SHOULDER INJURY MRI F [facility] August 08, 2024 9:47am OP SP BILAT KNEE PAIN August 14, 2024 1:16pm Chief Complaint Admit Date S46.911A June 25, 2024 11:08am S46.911A July 04, 2024 2:30pm [id number] July 22, 2024 5: 28pm S46.911A July 26, 2024 2 :30pm [facility] DOI 06/24/24 RT SHOULDER INJURY MRI F [facility] August 08, 2024 9:47am OP SP BILAT [...] of right knee Feb ruary 2024 8:15am Chief Complaint Admit Date RENAL, elevated creatinine December 04 3:34pm RENAL 3 MONTH F/U February 25, 2025 2: 13pm Reason for Visit Admit Date Diabetic nephropathy associa yohana with type 2 diabetes mellitus December 04, 2024 3:34pm Hypertensive nephropathy December 04, 2024 3:34pm Stage 3b chronic kidney disease November 3:34pm Anemia of renal disease February 25 2:13pm Diabetic nephropathy associa yohana with type 2 diabetes mellitus February 25, 2025 2:13pm Hyperaldosteronism February 25, 2025 2: 13pm Hypertensive nephropathy February 25 2:13pm Stage 3b chronic kidney disease February 142024 2:13pm Additional Source Comments (unrecognized sect ion and content) No Status Records FoundNo Status Records FoundNo Status Records FoundNo Status Records FoundNo Status Records FoundNo Status Records Found INFORMATION SOURCE (unrecogn ized section and content) DATE CREATED AUTHOR 01/09/2018 [facility] DATE CREATED AUTHOR AUTHOR'S ORGANIZ ATION 06/20/2021 [employer] DATE CREATED AUTHOR AUTHOR'S ORGANIZ ATION 09/13/2022 [facility] DATE CREATED AUTHOR AUTHOR'S ORGANIZ ATION 08/03/2024 [facility] DATE CREATED AUTHOR AUTHOR'S ORGANIZ ATION 02/21/2025 [facility] DATE CREATED AUTHOR AUTHOR'S ORGANIZ ATION 02/28/2025 [facility] dical Specialists EPIC REASON FOR VISIT (unrecogniz [...] Care Teams (unrecognized sec tion and content) Kayak Maker Relationship Specialty Start Date End Date Spencer Mast MD [address] [facility] [address] [place] [address] PCP - [place] [employer] 10/15/20 Spencer Mast MD [address] [facility] [address] [place] [address] PCP - General Family Medicine 11/22/22 Kayak Maker Relationship Specialty Start Date End Date Spencer Mast MD [address] [facility] [address] [place] [address] PCP [facility] 10/15/20 Spencer Mast MD [address] [facility] [address] [place] [address] PCP - General Family Medicine 11/22/22 Team [...] March 13, 2024 End: March 13, 2024 Kayak Maker Relationship Specialty Start Date End Date Spencer Mast MD [address] [facility] [address] [place] [address] PCP - General Family Medicine 11/22/22 Zoila Mosqueda, BUFFER COPPER [address] [facility] [place] [address] PCP - [place] [employer] 03/17/24 Kayak Maker Relationship Specialty Start Date End Date Spencer Mast MD [address] [facility] [place] [address] PCP - General Family Medicine 11/22/22 Zoila Mosqueda, BUFFER COPPER [address] [place] [address] PCP - [place] [employer] 03/17/24 Kayak Maker Relationship Specialty Start Date End Date Spencer Mast MD [address] [facility] [place] [address] PCP - General Family Medicine 11/22/22 Zoila Mosqueda, BUFFER COPPER [address] [place] [address] PCP - [place] [employer] 03/17/24 Kayak Maker Relationship Specialty Start Date End Date Spencer Mast MD [address] [place] [address] PCP - General Family Medicine 11/22/22 Zoila Mosqueda, BUFFER COPPER [address] [place] [address] PCP - [place] [employer] 03/17/24 Kayak Maker Relationship Specialty Start Date End Date Spencer Mast MD [address] [facility] [place] [address] PCP - General Family Medicine 11/22/22 Zoila Mosqueda NP [address] [facility] [place] [address] PCP - [place] [employer] 03/17/24 Kayak Maker Relationship Specialty Start Date End Date Spencer Mast MD [address] [place] [address] PCP - General Family Medicine 11/22/22 Zoila Mosqueda BUFFER COPPER [address] [place] [address] PCP - [place] [employer] 03/17/24 Kayak Maker Relationship Specialty Start Date End Date Spencer Mast MD [address] [place] [address] PCP - General Family Medicine 11/22/22 Zoila Mosqueda BUFFER COPPER [address] [facility] [address] [place] [address] PCP - [place] [employer] 03/17/24 Kayak Maker Relationship Specialty Start Date End Date Spencer Mast MD [address] [place] [address] PCP - General Family Medicine 11/22/22 Zoila Mosqueda BUFFER COPPER [address] [place] [address] PCP - [place] [employer] 03/17/24 Kayak Maker Relationship Specialty Start Date End Date Spencer Mast MD [address] [place] [address] PCP - General Family Medicine 11/22/22 Zoila Mosqueda, BUFFER COPPER [address] [place] [address] PCP - [place] [employer] 03/17/24 Kayak Maker Relationship Specialty Start Date End Date Spencer Mast MD [address] [place] [address] PCP - General Family Medicine 11/22/22 Zoila Mosqueda, BUFFER COPPER [address] [place] [address] PCP - [place] [employer] 03/17/24 Kayak Maker Relationship Specialty Start Date End Date Spencer Mast MD [address] [place] [address] PCP - General Family Medicine 11/22/22 Zoila Mosqueda, BUFFER COPPER [address] [place] [address] PCP - [place] [employer] 03/17/24 Team Status: Inactive Member Role [...] July 22, 2024 End: July 22, 2024 Kayak Maker Relationship Specialty Start Date End Date Spencer Mast MD [address] [place] [address] PCP - General Family Medicine 11/22/22 Zoila Mosqueda, BUFFER COPPER [address] [place] [address] PCP - [place] [employer] 03/17/24 Team Status: Inactive Member Role Status Dates Spencer Mast MD Primary Care Provider Active S tart: July 26, 2024 End: July 26, 2024 Leidy Bennett APRN Attending Provider Active Start: July 26, 2024 End: July 26, 2024 Kayak Maker Relationship Specialty Start Date End Date Spencer Mast MD [address] [place] [address] PCP - General Family Medicine 11/22/22 Zoila Mosqueda, BUFFER COPPER [address] [place] [address] PCP - [place] [employer] 03/17/24 Kayak Maker Relationship Specialty Start Date End Date Spencer Mast MD [address] [place] [address] PCP - General Family Medicine 11/22/22 Zoila Mosqueda, BUFFER COPPER [address] [place] [address] PCP - [place] [employer] 03/17/24 Kayak Maker Relationship Specialty Start Date End Date Spencer Mast MD [address] [place] [address] PCP - General Family Medicine 11/22/22 Zoila Mosqueda, BUFFER COPPER [address] [place] [address] PCP - [place] [employer] 03/17/24 Kayak Maker Relationship Specialty Start Date End Date Spencer Mast MD [address] [facility] [address] [place] [address] PCP - General Family Medicine 11/22/22 Zoila Mosqueda, BUFFER COPPER [address] [facility] [address] [place] [address] PCP - [place] [employer] 03/17/24 Team Status: Inactive Member Role Status Dates Spencer Mast MD Primary Care Provider Active S tart: August 08, 2024 End: August 08, 2024 Mukesh Salinas MD Attending Provider Active Star t: August 08, 2024 End: August 08, 2024 Kayak Maker Relationship Specialty Start Date End Date Spencer Mast MD [address] [facility] [address] [place] [address] PCP - General Family Medicine 11/22/22 Zoila Mosqueda, BUFFER COPPER [address] [facility] [address] [place] [address] PCP - [place] [employer] 03/17/24 Kayak Maker Relationship Specialty Start Date End Date Spencer Mast MD [address] [facility] [address] [place] [address] PCP - General Family Medicine 11/22/22 Zoila Mosqueda, BUFFER COPPER [address] [facility] [address] [place] [address] PCP - [place] [employer] 03/17/24 Team Status: Inactive Member Role [...] September 12, 2024 End: September 12, 2024 Kayak Maker Relationship Specialty Start Date End Date Spencer Mast MD [address] [facility] [address] [place] [address] PCP - General Family Medicine 11/22/22 Zoila Mosqueda NP [address] [facility] [address] [place] [address] PCP - [facility] 03/17/24 Kayak Maker Relationship Specialty Start Date End Date Spencer Mast MD [address] [facility] [address] [place] [address] PCP - General Family Medicine 11/22/22 Kayak Maker Relationship Specialty Start Date End Date Spencer Mast MD [address] [facility] [address] [place] [address] PCP - General Family Medicine 11/22/22 Kayak Maker Relationship Specialty Start Date End Date Spencer Mast MD [address] [facility] [address] [place] [address] PCP - General Family Medicine 11/22/22 Kayak Maker Relationship Specialty Start Date End Date Spencer Mast MD [address] [facility] [address] [place] [address] PCP - General Family Medicine 11/22/22 Kayak Maker Relationship Specialty Start Date End Date Spencer Mast MD [address] [facility] [address] [place] [address] PCP - General Family Medicine 11/22/22 Kayak Maker Relationship Specialty Start Date End Date Spencer Mast MD [address] [place] [address] PCP - General Family Medicine 11/22/22 Team Status: Inactive Member Role Status Dates Spencer Mast MD Primary Care Provider Active S tart: December 04, 2024 End: December 04, 2024 Sarah Anne MD Attending Provider Active Star t: December 04, 2024 End: December 04, 2024 Team Status: Active Member Role Status Watson Mast MD Primary Care Provider Active S tart: February 07, 2025 Sarah Anne MD Attending Provider Active Star t: February 07, 2025 Team Status: Inactive Member Role Status Dates Spencer Mast MD Primary Care Provider Active S tart: February 25, 2025 End: February 25, 2025 Sarah Anne MD Attending Provider Active Star t: February 25, 2025 End: February 25, 2025 Goals (unrecognized section and content) Goals may [...] BE BASED ON THE PRIMARY CLINICAL RECORDS. [facility]. provides no warranty or guarantee of the accuracy or completeness of information in this document.
--- OUTSIDE RECORDS SUMMARY | 2025-03-04 07:03 | XMS_ITS | Encounter Summary ---
Author Organization [facility] Address [address] [facility] [place] [address] Care Team Providers Care Veterinary Science Teacher Name Role Phone Surya Hinton MD Unavailable Surya Hinton MD Primary Care Provider [phone] Zoial Fountain NP Unavailable [phone] Encounter Details Date Type Department Care Team (Late Contact Info) Description 11/15/2023 Abstract [facility] [place] [facility] [address] [place] [phone] Surya Hinton MD [address] [place] [address] Social History Tobacco Use Types Packs/Day Years [...] [address] [place] [address] Zoila Fountian DIRECTOR [employer] [address] [place] [address] documented as of this encounter Visit Diagnoses Not on filedocumented in this encounter Care Teams Veterinary Science Teacher Relationship Specialty Start Date End Date Surya Hinton MD [address] [facility] [address] [place] [address] PCP - [facility] [employer] 10/15/20 Surya Hinton MD [address] [facility] [address] [place], [place] [id number] PCP - General Family Medicine 11/22/22 Zoila Fountain, IBIS [address] [facility] [address] [place] [address] PCP - [facility] [employer] 03/17/24 documented as of this encounter
--- OUTSIDE RECORDS SUMMARY | 2025-03-04 07:03 | XMS_ITS | Encounter Summary ---
Author Organization [facility] Address [address] [facility] [place] [address] Care Team Providers Care Raisin Washer Name Role Phone Surya Hinton MD Primary Care Provider [phone] Encounter Details Date Type Department Care Team ([facility] Contact Info) Description 02/26/2025 Bamboo flowsheet [facility] [place] [facility] [address] [facility] [address] [place] [phone] Zoila Fountain NP [address] [facility] 110 [place] [address] Social History Tobacco Use Types Packs/Day Years [...] Upcoming Encounters Date Type Department Care Team ([facility] Contact Info) Description 08/28/2025 1:00 PM EST Office Visit [facility] [place] [facility] [address] [facility] [address] [place] [phone] Zoila Fountain NP [address] [facility] 110 [place] [address] documented as of this encounter Visit Diagnoses Not on filedocumented in this encounter Care Teams Raisin Washer Relationship Specialty Start Date End Date Surya Hinton MD [address] [facility] 110 [place] [id number] PCP - General Family Medicine 11/22/22 documented as of this encounter
--- OUTSIDE RECORDS SUMMARY | 2025-03-04 07:03 | XMS_ITS | Encounter Summary ---
Author Organization [facility] Address [address] [facility] [place] [address] Care Team Providers Care Bee Raiser Name Role Phone Surya Hinton MD Primary Care Provider [phone] Encounter Details Date Type Department Care Team ([facility] Contact Info) Description 11/07/2024 Abstract [facility] [place] [facility] [address] [facility] 110 [place] [phone] Surya Hinton MD [address] [facility] [address] [place] [address] Social History Tobacco Use Types Packs/Day Years [...] Upcoming Encounters Date Type Department Care Team ([facility] Contact Info) Description 08/28/2025 1:00 PM EST Office Visit [facility] [place] [facility] [address] [place] [address] Zoila Fountain NP [address] [place] [address] documented as of this encounter Visit Diagnoses Not on filedocumented in this encounter Care Teams Bee Raiser Relationship Specialty Start Date End Date Surya Hinton MD [address] [place] [address] PCP - General Family Medicine 11/22/22 documented as of this encounter
--- OUTSIDE RECORDS SUMMARY | 2025-03-04 07:03 | XMS_ITS | Encounter Summary ---
Author Organization [facility] Address [address] [place] [address] Care Team Providers Care Logistics Project Manager Name Role Phone Surya Hinton MD Primary Care Provider [phone] Reason for Visit * Reason Comments Med Refill Encounter Details Date Type Department Care Team ([facility] Contact Info) Description 03/02/2025 Refill [facility] [place] [facility] [address] [place] [phone] Zoila Fountain NP [address] [place] [address] Hypertension secondary to other renal disorders Social History Tobacco Use Types Packs/Day Years [...] Upcoming Encounters Date Type Department Care Team ([facility] Contact Info) Description 08/28/2025 1:00 PM EST Office Visit [facility] [place] [facility] [address] [place] [address] Zoila Fountain NP [address] [place] [address] documented as of this encounter Visit Diagnoses Diagnosis Hypertension secondary to other renal disorders documented in this encounter Care Teams Logistics Project Manager Relationship Specialty Start Date End Date Surya Hinton MD [address] [facility] 110 [place] [address] PCP - General Family Medicine 11/22/22 documented as of this encounter
--- OUTSIDE RECORDS SUMMARY | 2025-03-04 07:03 | XMS_ITS | Encounter Summary ---
Author Organization [facility] Address [address] [place] [address] Care Team Providers Care Needle Control Cheniller Name Role Phone Surya Hinton MD Primary Care Provider [phone] Encounter Details Date Type Department Care Team (Late st Contact Info) Description 02/11/2025 Telephone [facility] [address] [place] [address] Codie Reynoso MA Social History Tobacco Use Types Packs/Day Years Used Date Smoking Tobacco: Former Cigarettes Smokeless Tobacco: Never Alcohol Use Standard Drinks/Week Comments Not Currently 0 (1 standard drink = 0.6 oz pur e alcohol) occasional PHQ-2 Answer Date Recorded Patient Health Questionnaire-2 Score 0 08/17/2022 DC Safety & Environment Answer Date Rec orded [...] Telephone Encounter - Codie Reynoso MA - 02/18/2025 10:04 AM EDT Spoke with Lyric from [facility] cardiac rehab. He reported BP's to her: 172/128, 182/119. She did confirm with patient that he does have a follow up with nephrology next week on 02/25. Then spoke with patient and advised he keep that apt. I will send our notes to his lehr operator and request them to send us theirs. Patient verbalized understanding. * Telephone Encounter - Codie Reynoso MA [...] He is scheduled 02/13 for echo at [facility]. documented in this encounter Plan of Treatment Upcoming Encounters Date Type Department Care Team (Late st Contact Info) Description 04/03/2025 2:00 PM EDT Office Visit [facility] [address] [place] [phone] Reed Estrella MD [address] [place] [address] 05/02/[address] [facility] Vascular Lab [address] [place] [address] Reed Estrella MD [address] [place] [address] Scheduled Procedures Name Priority Associated Diagnoses Date/Ti me Atrial Fib Ablation w/ PVI Persistent atrial fibrillation (CMS/HCC) documented as of this encounter Visit Diagnoses Not on filedocumented in this encounter Care Teams Needle Control Cheniller Relationship Specialty Start Date End Date Surya Hinton MD [address] [place] [address] PCP - General 05/18/22 documented as of this encounter
[2025-03-04 07:49] LABS: Hematocrit 36.0 % (42.0-54.0); Hemoglobin 11.7 g/dL (14.0-18.0); Mean Corpuscular HGB Conc 32.5 g/dL (29.9-35.2); Mean Corpuscular Hemoglobin 29.3 pg (25.9-34.0); Mean Corpuscular Volume 90.2 fL (80.0-94.0); Platelet Count 190 10^3/uL (150-450); Red Blood Count 3.99 10^6/uL (4.70-6.10); White Blood Count 7.6 10^3/uL (4.0-11.0)
[2025-03-04 07:52] LABS: Glucose Urine UA >=1000 mg/dL (NEGATIVE)
[2025-03-04 08:05] LABS: Albumin Level 3.8 g/dL (3.4-5.0); Anion Gap 11.9; Blood Urea Nitrogen 31.0 mg/dL (7.0-18.0); Calcium 8.7 mg/dL (8.5-10.1); Carbon Dioxide 27.4 mmol/L (21.0-32.0); Chloride 108 mmol/L (98-107); Estimated GFR (African America 47 (>=60 mL/min/1.73m^2); Estimated GFR (Non-African Ame 39 (>=60 mL/min/1.73m^2); Glucose 156 mg/dL (74-106); Magnesium 1.8 mg/dL (1.8-2.4); Potassium 4.3 mmol/L (3.5-5.1); Sodium 143 mmol/L (136-145)
[2025-03-04 08:49] LABS: Protein Creatinine Ratio Urine 0.23; Total Protein Urine Random 26.4 mg/dL (<=11.9)
[2025-03-04 09:48] LABS: Ferritin 63.0 ng/mL (26.0-388.0); Folate 10.50 ng/mL (8.60-58.90)
[2025-03-04 12:26] LABS: Iron 38.0 ug/dL (65.0-175.0); Percent Iron Saturation 11.0 %; Total Iron Binding Capacity 347.0 ug/dL (250.0-450.0)
[2025-03-05 04:07] LABS: Vitamin B12 335 pg/mL (232-1245)
== END 2025-03-04 06:59 | disposition home or self-care (01) ==
LOC: LAB 07:00
PROVIDERS: PCP Family Medicine; Visit Provider Internal Medicine Nephrology
DX: I12.9 Hypertensive chronic kidney disease with stage 1 through stage 4 chronic kidney disease, or unspecified chronic kidney disease (principal); N18.9 Chronic kidney disease, unspecified; D63.1 Anemia in chronic kidney disease; E26.9 Hyperaldosteronism, unspecified; N18.32 Chronic kidney disease, stage 3b; E11.21 Type 2 diabetes mellitus with diabetic nephropathy
CPT/HCPCS: 36415; 80069; 81003; 82570; 82607; 82728; 82746; 83540; 83550; 83735; 84156; 85027

== ENCOUNTER 2025-04-17 16:07 | Outpatient (OUT) | payer MEDICARE, SELFPAY ==
--- OUTSIDE RECORDS SUMMARY | 2025-04-09 16:05 | XMS_ITS | Encounter Summary ---
Author Organization [facility] Address [address] [place] [address] Care Team Providers Care Pond Supervisor Name Role Phone Surya Hinton MD Primary Care Provider [phone] Reason for Referral * Imaging (Routine) - Authorized Specialty Diagnoses / Procedures Referred By Contac t Referred To Contact Radiology Diagnoses Persistent atrial fibrillation (CMS/HCC) Procedures CTA Chest W IV Contrast Reed Estrella MD [address] [place] [phone] Phone: tel: fax: Radiology [address] [place] [phone] Phone: tel: fax: Referral ID Status Reason Start Date Expiration Date V isits Requested Visits Authorized [id number] Authorized 03/05/2025 03/05/2026 1 1 Reason for Visit * Imaging (Routine) - Authorized Specialty Diagnoses / Procedures Referred By Contac t Referred To Contact Radiology Diagnoses Persistent atrial fibrillation (CMS/HCC) Procedures CTA Chest W IV Contrast Reed Estrella MD [address] [place] [phone] Phone: tel: fax: Radiology [address] [place] [phone] Phone: tel: fax: Referral ID Status Reason Start Date Expiration Date V isits Requested Visits Authorized [id number] Authorized 03/05/2025 03/05/2026 1 1 Encounter Details Date Type Department Care Team (Latest Contact Info) Description 04/09/2025 4:05 PM EDT - 04/09/2025 11:59 PM EDT Hospital Encounter [facility] CT Imaging [address] [place] [address] Diabetes mellitus (CMS/HCC) (Primary Dx); Persistent atrial fibrillation (CMS/HCC) Discharge Disposition: Home or Self Care () Social History Tobacco Use Types Packs/Day Years [...] AM EDT documented as of this encounter Medications at Time of Discharge apixaban (Eliquis) 5 mg tabletIndications: Atrial fibrillation, unspecified type (CMS/HCC) Take 1 tablet (5 mg) by mouth two times daily. 60 tablet 3 11/13/2024 aspirin 81 mg chewable tablet Chew 81 mg in the morning. atorvastatin (Lipitor) 80 mg tablet Take 80 mg by mouth at bedtime. carvedilol (Coreg) 25 mg tabletIndications: Benign hypertensive heart disease without congestive heart failure Take 1 tablet (25 mg) by mouth with breakfast and with evening meal. 180 tablet 3 09/06/2024 cloNIDine (Catapres) 0.2 mg tablet Take 0.3 mg by mouth two times daily. 02/12/2024 cyclobenzaprine (Flexeril) 10 mg tablet take 1 tablet by mouth three times a day as needed for spasm 06/25/2024 dapagliflozin (Farxiga) 10 mg Take 1 tablet by mouth in the morning. ezetimibe (Zetia) 10 mg tabletIndications: Acute heart failure with preserved ejection fraction (CMS/HCC) Take 1 tablet (10 mg) by mouth in the morning. 30 tablet 11 11/13/2024 ezetimibe (Zetia) 10 mg tabletIndications: Coronary artery disease, unspecified vessel or lesion type, unspecified whether angina present, unspecified whether [place] or transplanted heart Take 1 tablet (10 mg) by mouth in the morning. 30 tablet 11 11/13/2024 furosemide (Lasix) 40 mg tabletIndications: Bilateral lower extremity edema,BARRON (dyspnea on exertion) Take 1 tablet (40 mg) by mouth in the morning. 90 tablet 3 11/13/2024 hydrALAZINE (Apresoline) 50 mg tablet Take 1 tablet by mouth every 6 (six) hours during the day. 12/05/2024 isosorbide mononitrate ER (Imdur) 120 mg 24 hr tablet Take 120 mg by mouth in the evening. lisinopril 40 mg tablet Take 1 tablet by mouth in the morning. meloxicam (Mobic) 15 mg tablet Take 1 tablet by mouth in the morning. 09/11/2024 metFORMIN (Glucophage) 500 mg tabletIndications: Type 2 diabetes mellitus with stage 3b chronic kidney disease, without long-term current use of insulin (CMS/HCC) TAKE 1 TABLET BY MOUTH WITH BREAKFAST AND WITH EVENING MEAL 60 tablet 06/12/2023 rivaroxaban (Xarelto) 20 mg tabletIndications: Paroxysmal atrial fibrillation (CMS/HCC) Take 1 tablet (20 mg) by mouth daily with evening meal. Take with food. 30 tablet 11 12/18/2024 semaglutide (Rybelsus) 7 mg tablet Take 1 tablet by mouth in the morning. 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 TAKE 3 CAPSULES BY MOUTH AT BEDTIME 270 capsule 08/16/2024 documented as of this encounter Plan of Treatment Upcoming Encounters Date Type Department Care Team (Late st Contact Info) Description 04/22/2025 12:00 PM EDT Hospital Encounter [facility] Heart [facility] [address] [place] [phone] Reed Estrella MD [address] [place] [address] [phone] Persistent atrial fibrillation (CMS/HCC) 04/22/2025 12:00 PM EDT - 04/22/2025 3:00 PM EDT Surgery [facility] [address] [place] [phone] Reed Estrella MD [address] [place] [address] [phone] Ablation a-fib w/ pvi [95765 (CPT )] documented as of this encounter Procedures Procedure Name Priority Date/Time Associated Diagnosis Comments CTA CHEST W IV CONTRAST Routine 04/09/2025 5:15 PM EDT Persistent atrial fibrillation (CMS/HCC) documented in this encounter Results * CTA Chest W IV Contrast (04/09/2025 5:15 PM EDT) Anatomical Region Laterality Modality Body, Chest Computed Tomogra phy 04/10/2025 7:27 AM EDT Impressions 04/10/2025 7:42 AM EDT Evidence of prior coronary artery bypass graft procedure was patent graft seen from the ascending aorta and RIOS graft. Significant coronary artery calcifications. Small pleural effusion on the left and trace effusion on the right.. Normal size and morphology of the left atrium and 2 pulmonary veins are draining on each side with no filling defects in the left atrial appendage. Diffuse idiopathic skeletal hyperostosis. Electronically signed: Poonam Mendiola MD. Narrative 04/10/2025 7:42 AM EDT CTA CHEST W IV CONTRAST 04/09/2025 4:46 PM CLINICAL INDICATIONS: Persistent atrial fibrillation. Preablation evaluation. PROTOCOL: Gated chest CTA CONTRAST: 100 mL Omnipaque 350 IV and 15 mL Omnipaque 350 orally TECHNIQUE: Multidetector CT axial slices of the chest were obtained with IV contrast. Multiplanar reformats were performed and viewed on a separate workstation and reviewed to further define anatomy and possible pathology. All CT scans at this facility use dose modulation, iterative reconstruction, and/or weight based dosing when appropriate to reduce radiation dose to as low as reasonably achievable. COMPARISON: Prior cardiac CTA from 07/14/2016. FINDINGS: Lower neck: Thyroid gland within normal limits, no supraclavicle adenopathy. Vessels: Pulmonary arteries are Within normal limits. Moderate atherosclerotic changes in the aorta. and coronary arteries. Patent bypass grafts are visualized areas Mediastinum and Farzaneh: A few small nonspecific mediastinal lymph nodes are visualized, nonpathologic by size criteria Heart: Normal size. No pericardial effusion. Airways: Within normal limits Lungs: Within normal limits apart from few linear scars at the lung bases; left more than right.. Pleura: Small left pleural effusion and trace right pleural effusion Chest Wall: Within normal limits. Upper Abdomen: Within normal limits. Bones: Fused anterior osteophytes in the thoracic spine consistent with diffuse idiopathic skeletal hyperostosis. Sternotomy wires from prior coronary artery bypass graft procedure Left atrium is normal in size and configuration with maximum transverse dimensions of 8.6 x 5.3 cm. No filling defects in the left atrial appendage. The ostium of the appendage measures 2 cm in diameter and the length of the appendage is 4.8 cm. Left superior pulmonary vein ostium is 1.9 cm in diameter and first branch is approximately 2.4 cm from the ostium The left inferior pulmonary vein ostium is 1.6 cm and first branch is approximately 2.7 cm from the ostium. The right superior pulmonary vein ostium is 1.8 cm and first branch is approximately 4 cm from the ostium. The right inferior pulmonary vein ostium is 1.9 cm in diameter and first branch is approximately 2.4 cm from the ostium. 3-D volume rendered images of the left atrium, draining pulmonary veins and the appendage are obtained in various projections and saved. Procedure Note Poonam Mendiola MD - 04/10/2025 CTA CHEST W IV CONTRAST 04/09/2025 4:46 PM CLINICAL INDICATIONS: Persistent atrial fibrillation. Preablationevaluation. PROTOCOL: Gated chest CTA CONTRAST: 100 mL Omnipaque 350 IV and 15 mL Omnipaque 350 orally TECHNIQUE: Multidetector CT axial slices of the chest were obtained withIV contrast. Multiplanar reformats were performed and viewed on a separate workstation and reviewed to further define anatomy and possible pathology. All CT scans at this facility use dose modulation, iterativereconstruction, and/or weight based dosing when appropriate to reduce radiation dose to aslow as reasonably achievable. COMPARISON: Prior cardiac CTA from 07/14/2016. FINDINGS: Lower neck: Thyroid gland within normal limits, no supraclavicleadenopathy. Vessels: Pulmonary arteries are Within normal limits. Moderateatherosclerotic changes in the aorta. and coronary arteries. Patent bypass grafts arevisualized areas Mediastinum and Farzaneh: A few small nonspecific mediastinal lymph nodesare visualized, nonpathologic by size criteria Heart: Normal size. No pericardial effusion. Airways: Within normal limits Lungs: Within normal limits apart from few linear scars at the lung bases;left more than right.. Pleura: Small left pleural effusion and trace right pleural effusion Chest Wall: Within normal limits. Upper Abdomen: Within normal limits. Bones: Fused anterior osteophytes in the thoracic spine consistent withdiffuse idiopathic skeletal hyperostosis. Sternotomy wires from prior coronaryartery bypass graft procedure Left atrium is normal in size and configuration with maximum transverse dimensions of 8.6 x 5.3 cm. No filling defects in the left atrialappendage. The ostium of the appendage measures 2 cm in diameter and the length of the appendage is 4.8 cm. Left superior pulmonary vein ostium is 1.9 cm indiameter and first branch is approximately 2.4 cm from the ostium The left inferior pulmonary vein ostium is 1.6 cm and first branch is approximately 2.7 cm from the ostium. The right superior pulmonary veinostium is 1.8 cm and first branch is approximately 4 cm from the ostium. Theright inferior pulmonary vein ostium is 1.9 cm in diameter and first branch is approximately 2.4 cm from the ostium. 3-D volume rendered images of theleft atrium, draining pulmonary veins and the appendage are obtained invarious projections and saved. IMPRESSION: Evidence of prior coronary artery bypass graft procedure was patent graftseen from the ascending aorta and RIOS graft. Significant coronary artery calcifications. Small pleural effusion on the left and trace effusion on the right.. Normal size and morphology of the left atrium and 2 pulmonary veins aredraining on each side with no filling defects in the left atrial appendage. Diffuse idiopathic skeletal hyperostosis. Electronically signed: Poonam Mendiola MD. Reed Estrella MD IMG CT PROCEDURES Final Result * (ABNORMAL) Creatinine, Serum (04/09/2025 4:11 PM EDT) Creatinine 1.58(H) 0.70 - 1.30 mg/dL 04/09/2025 4:40 PM EDT [facility] ([facility]) eGFR 46.5(L) >60.0 mL/min/1. 73m*2 04/09/2025 4:40 PM EDT [facility] ([facility]) Comment:The [facility] s estimated glomerular filtration rate (eGFR) will no longer include consideration of race in its calculation. The [employer] s eGFR Task Force developed new recommendations for the estimation of the glomerular filtration rate in the [place] They recommend immediate implementation of the new equation refit without the race variable in all laboratories because the calculation does not include race. In addition to not including race in the calculation and reporting, it included diversity in its development, and has acceptable performance characteristics and potential consequences that do not disproportionately affect any one group of individuals. Blood Venous blood specimen / Unknown Venipuncture / Unknown 04/09/2025 4:11 PM EDT 04/09/2025 4:18 PM EDT Reed Estrella MD LAB BLOOD ORDERABLES Final Resu lt [facility] ([facility]) [address] [place], [place] [phone] documented in this encounter Visit Diagnoses Diagnosis Atrial fibrillation (CMS/HCC)- Primary Atrial fibrillation Persistent atrial fibrillation (CMS/HCC) Atrial fibrillation Diabetes mellitus (CMS/HCC)- Primary Type II or unspecified type diabetes mellitus without mention of complication, not stated as uncontrolled Persistent atrial fibrillation (CMS/HCC) Atrial fibrillation Persistent atrial fibrillation (CMS/HCC) Atrial fibrillation documented in this encounter Administered Medications Inactive Administered Medications - up to 3 most recent administrations Medication Order MAR Action Action Date Dose Rate Site iohexol (OMNIPaque) 350 mg iodine/mL injection 100 mL 100 mL, intravenous, Once in imaging, Starting on Mon04/09/25 at 1715, For 1 dose Given 04/09/2025 5:17 PM EDT 100 mL iopamidol (Isovue-300) 300 mg iodine /mL (61 %) injection 15 mL 15 mL, intravenous, Once in imaging, Starting on Mon04/09/25 at 1716, For 1 dose, Use NS provided in 500 mL or 1000 mL flexible bags for preparation. Given 04/09/2025 5:16 PM EDT 15 mL documented in this encounter Care Teams Pond Supervisor Relationship Specialty Start Date End Date Surya Hinton MD [address] [facility] PCP - General 05/18/22 documented as of this encounter
--- OUTSIDE RECORDS SUMMARY | 2025-04-09 16:15 | XMS_ITS | Encounter Summary ---
Author Organization [facility] Address [address] [place] [address] Care Team Providers Care Architectural Draftsperson Name Role Phone Surya Hinton MD Primary Care Provider [phone] Encounter Details Date Type Department Care Team (Late Contact Info) Description 04/09/2025 4:15 PM EDT Lab [facility] Outpatient Draw Station [address] [place] [phone] Diabetes mellitus (CMS/HCC) Social History Tobacco Use Types Packs/Day Years Used Date Smoking Tobacco: Former Cigarettes Smokeless Tobacco: Never Alcohol Use Standard Drinks/Week Comments Not Currently 0 (1 standard drink = 0.6 oz pur e alcohol) occasional PHQ-2 Answer Date Recorded Patient Health Questionnaire-2 Score 0 08/17/2022 [place] Safety & Environment Answer Date Rec orded [...] Department Care Team (Late Contact Info) Description 04/22/2025 12:00 PM EDT Hospital Encounter [facility] [address] [place] [phone] Reed Estrella MD [address] [place] [address] Persistent atrial fibrillation (CMS/HCC) 04/22/2025 12:00 PM EDT - 04/22/2025 3:00 PM EDT Surgery [facility] [address] [place] [phone] Reed Estrella MD [address] [place] [address] Ablation a-fib w/ pvi [18294 (CPT )] documented as of this encounter Procedures Procedure Name Priority Date/Time Associated Diagnosis Comments CREATININE, SERUM STAT 04/09/2025 4:1 1 PM EDT Diabetes mellitus (CMS/[facility]) documented in this encounter Results * (ABNORMAL) Creatinine, Serum (04/09/2025 4:11 PM EDT) Creatinine 1.58(H) 0.70 - 1.30 mg/dL 04/09/2025 4:40 PM EDT [facility] ([facility]) eGFR 46.5(L) >60.0 mL/min/1. 73m*2 04/09/2025 4:40 PM EDT [facility] ([facility]) Comment:The [facility] s estimated glomerular filtration rate (eGFR) will [...] 4:11 PM EDT 04/09/2025 4:18 PM EDT us Reed Estrella MD LAB BLOOD ORDERABLES Final Resu lt [facility] ([facility]) [address] [place] [address] documented in this encounter Visit Diagnoses Diagnosis Atrial fibrillation (CMS/HCC)- Primary Atrial fibrillation Persistent atrial fibrillation (CMS/HCC) Atrial fibrillation Diabetes mellitus (CMS/HCC) Type II or unspecified type diabetes mellitus without mention of complication, not stated as uncontrolled Persistent atrial fibrillation (CMS/HCC) Atrial fibrillation documented in this encounter Care Teams Architectural Draftsperson Relationship Specialty Start Date End Date Surya Hinton MD 3 [facility] PCP - General 05/18/22 documented as of this encounter
--- OUTSIDE RECORDS SUMMARY | 2025-04-17 16:12 | XMS_ITS | Clinical Summary ---
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 100 tablet 3 4 Active carvedilol (Coreg) 25 MG tabletIndications:P rimary hypertension Take 1 tablet (25 mg) by mouth in the morning and 1 tablet (25 mg) before bedtime. 180 tablet 3 4 Active lisinopril 40 MG [...] or chew. 30 tablet 11 4 Active chlorthalidone (Hygroton) 25 MG tablet [...] mouth in the morning. 5 11/09/19 Active cloNIDine (Catapres) 0.2 MG tabletIndications:H ypertension secondary to other renal disorders TAKE ONE AND ONE-HALF TABLETS BY MOUTH TWICE DAILY (MORNING AND BEFORE BEDTIME) 270 tablet 3 5 Active Farxiga 10 MGIndications:Coron jose antonio artery disease without angina pectoris, unspecified vessel or lesion type, unspecified whether [place] or transplanted heart Take 1 tablet by mouth once daily 100 tablet 3 5 Active Active Problems Problem Noted Date [...] Encounters Date Type Department Care Team Description 04/15/2025 Clinisync Result Encounter [facility] External Department Unsolicited Provider, Generic External Data 04/08/2025 Clinisync Result Encounter NOMS External Department Unsolicited Provider, Generic External Data 03/18/2025 Refill [facility] [place] [facility] [address] [facility] [address] [place] [address] Zoila Fountain NP Coronary artery disease without angina pectoris, unspecified vessel or lesion type, unspecified whether [place] or transplanted heart 03/10/2025 Abstract [facility] [place] [facility] [address] [facility] [address] [place] [address] Surya Hinton MD 03/07/2025 Clinisync Result Encounter NOMS External Department Unsolicited Provider, Generic External Data 03/04/2025 Clinisync Result Encounter NOMS External Department Unsolicited Provider, Generic External Data 03/02/2025 Refill [facility] [place] [facility] [address] [facility] [address] [place] [address] Zoila Fountain NP Hypertension secondary to other renal disorders 02/26/2025 11:30 AM EDT Office Visit [facility] [place] [facility] [address] [facility] [address] [place] [address] Zoila Fountain NP Type 2 diabetes mellitus with hyperglycemia, 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 ([facility]); Type 2 diabetes mellitus with stage 3 chronic kidney disease, with long-term current use of insulin, unspecified whether stage 3a or 3b CKD ([facility]); Chronic kidney disease, stage 3b ([facility]) 02/26/2025 Bamboo flowsheet [facility] [place] [facility] [address] [facility] [address] [place] [phone] Zoila Fountain NP 02/26/2025 Travel 02/08/2025 Clinisync [...] 1:00 PM EST Office Visit [facility] [place] [facility] [address] [facility] [address] [place] [address] Zoila Fountain NP 112 [facility] [address] [place] [address] Health Maintenance Due Date Last Done Comments [...] Name Priority Date/Time Associated Diagnosis Comments ITP 04/15/2025 2:25 PM EDT ITP 04/08/2025 7:17 AM EDT ITP 03/07/2025 7:39 AM EDT VITAMIN B12 Routine 03/04/2025 7:30 AM EDT METRO IRON AND TIBC Routine 03/04/2025 7 :30 AM EDT ALL FOLIC ACID Routine 03/04/2025 7:30 AM EDT [facility] FERRITIN Routine 03/04/2025 7:30 AM EDT ALL MAGNESIUM Routine 03/04/2025 7:30 AM EDT ALL RENAL FUNCTION PANEL Routine 03/04/2025 7:30 AM EDT HMHP CBC WITH PLATELET NO DIFFERENTIAL Routine 03/04/2025 7:30 AM EDT TBH URINE T PROTEIN CREAT RATIO Routine 03/04/2025 7:17 AM EDT ALL URINALYSIS Routine 03/04/2025 7:17 AM EDT POCT GLYCOSYLATED HEMOGLOBIN (HGB A1C) Routine 02/26/2025 11:38 AM EDT Type 2 diabetes mellitus with hyperglycemia, unspecified whether senior care insulin use (HCC) Type 2 diabetes mellitus [...] FUNCTION PANEL Routine 02/07/2025 6:55 AM EDT HP CBC WITH PLATELET NO DIFFERENTIAL Routine 02/07/2025 6:55 AM EDT MICROALBUMIN / CREATININE URINE RATIO [...] Relevant to Health Maintenance Results * ITP (04/15/2025 2:25 PM EDT) Only the most recent of3 resultswithin the time period is included. Anatomical Region Laterality Modality Other 04/15/2025 2:25 PM EDT Narrative 04/15/2025 8:05 [place] [address] Cardiac Rehab Report Signed Patient: TAWANDA JURADO MR#: [id number] : 1955 Acct:[id number] Age/Sex: 69 / M ADM Date: 02/27/25 Loc: CR Attending Dr: Judi Clark M.D. Ordering Physician: Judi Clark M.D. Date of Service: 04/15/25 Procedure(s): ITP Accession Number(s): [id number] cc: [facility] Test Date: 2025-04-15 Pat Name: TAWANDA JURADO Department: Room: - Gender: Male Occupational Health Manager: : 1955 Requested By: JUDI CLARK Order Number: [id number] Reading MD: MUSA RAHMAN M.D. Interpretive Statements Electronically Signed On 04-15-2025 20:05:28 EDT by MUSA RAHMAN M.D. Dictated By: MUSA RAHMAN Signed By: 04/15/25200404/15/252004 DD/ 24 TD/TT: Licensed Mental Health Professional: Procedure Note Radiology, Radiologist, - 04/15/[address] [address] Cardiac Rehab Report Signed Patient: TAWANDA JURADO LMR#: [id number] : 1955cct:[id number] Age/Sex: 69 / MADM Date: 02/27/25 Loc: CR Attending Dr: Judi Clark M.D. Ordering Physician: Judi Clark M.D. Date of Service: 04/15/25 Procedure(s): ITP Accession Number(s): [id number] cc: [facility] Test Date: 2025-04-15 Pat Name: TAWANDA JURADO Department: Room: - Gender: Male Occupational Health Manager: : 1955 Requested By: JUDI CLARK Order Number: [id number] Reading MD: MUSA RAHMAN M.D. Interpretive Statements Electronically Signed On 04-15-2025 20:05:28 EDT by MUSA RAHMAN M.D. Dictated By: MUSA RAHMAN Signed By:04/15/25200404/15/252004 DD/ 24 TD/TT: Licensed Mental Health Professional: us Generic External Data Provider [facility] IMAGING Final Result * VITAMIN B12 (03/04/2025 7:30 AM EDT) VITAMIN B12 335 232 - 1245 pg/mL TB Comment: Performed at: [address] [id number] Health Associate: Dionicio Clements PhD, Phone: [phone] 03/04/2025 7:30 AM EDT 03/04/2025 7:32 AM EDT Narrative CLINISYNC - 03/05/2025 4:07 AM EDT us Generic External Data Provider LAB BLOOD ORDERAB LES Final Result Performing Organization Address City/[facility]/ZIP Co de Phone Number [facility] * (ABNORMAL) METRO IRON AND TIBC (03/04/2025 7:30 AM EDT) Pathologist [facility] TB IRON 38.0(L) 65.0 - 175.0 ug/dL TBH TBH TOTAL IRON BINDING CAPACITY 347.0 250.0 - 450.0 ug/dL TBH TBH PERCENT IRON SATURATION 11.0 % TBH 03/04/2025 7:30 AM EDT 03/04/2025 7:32 AM EDT Narrative CLINISYNC - 03/04/2025 12:27 PM EDT Generic External Data Provider [facility] F inal Result Performing Organization Address [facility] Co de Phone Number [facility] TB * (ABNORMAL) [facility] CBC WITH PLATELET NO DIFFERENTIAL (03/04/2025 7:30 AM EDT) Only the most recent of2 resultswithin the time period is included. Pathologist [facility] TB WBC 7.6 4.0 - 11.0 10 3/uL TBH TBH RBC 3.99(L) 4.70 - 6.10 10 6/uL TBH TBH HGB 11.7(L) 14.0 - 18.0 g/dL TBH TBH HCT 36.0(L) 42.0 - 54.0 % TBH TBH MCV 90.2 80.0 - 94.0 fL TBH TBH MCH 29.3 25.9 - 34.0 pg TBH TBH MCHC 32.5 29.9 - 35.2 g/dL TBH TBH RDW 16.6(H) 11.0 - 15.0 % TBH TBH PLT 190 150 - 450 10 3/uL TBH TBH MPV 11.4 9.5 - 13.5 fL TBH 03/04/2025 7:30 AM EDT 03/04/2025 7:32 AM EDT Narrative CLINISYNC - 03/04/2025 7:54 AM EDT Generic External Data Provider [facility]IN[facility] F inal Result [facility] TB * [facility] FERRITIN (03/04/2025 7:30 AM EDT) FERRITIN 63.0 26.0 - 388.0 ng/mL TBH 03/04/2025 7:30 AM EDT 03/04/2025 7:32 AM EDT Narrative CLINISYNC - 03/04/2025 9:54 AM EDT Generic External Data Provider [facility] F ina Result [facility] TB * (ABNORMAL) ALL RENAL FUNCTION PANEL (03/04/2025 7:30 AM EDT) Only the most recent of2 resultswithin the time period is included. SODIUM 143 136 - 145 mmol/L TBH POTASSIUM 4.3 3.5 - 5.1 mmol/L TBH CHLORIDE 108(H) 98 - 107 mmol/L TBH CARBON DIOXIDE 27.4 21.0 - 32.0 mmol/L TBH ANION GAP 11.9 TBH GLUCOSE 156(H) 74 - 106 mg/dL TBH BLOOD UREA NITROGEN 31.0(H) 7.0 - 18.0 mg/dL TBH CREATININE 1.73(H) 0.70 - 1.30 mg/dL TBH TBH EGFR-AF CAMEROONIAN 47(L) >=60 mL/min/1.7 3m 2 TBH TBH EGFR-NON AF CAMEROONIAN 39(L) >=60 mL/min/1.7 3m 2 TBH BUN CREATININE RATIO 17.9 TBH CALCIUM 8.7 8.5 - 10.1 mg/dL TBH PHOSPHORUS 4.1 2.6 - 4.7 mg/dL TBH ALBUMIN LEVEL 3.8 3.4 - 5.0 g/dL TBH 03/04/2025 7:30 AM EDT 03/04/2025 7:32 AM EDT Narrative CLINISYNC - 03/04/2025 8:10 AM EDT Generic External Data Provider CLINISYNC F inal Result Performing Organization Address City/[facility] Co de Phone Number [facility] * ALL MAGNESIUM (03/04/2025 7:30 AM EDT) Only the most recent of2 resultswithin the time period is included. MAGNESIUM 1.8 1.8 - 2.4 mg/dL TBH 03/04/2025 7:30 AM EDT 03/04/2025 7:32 AM EDT Narrative CLINISYNC - 03/04/2025 8:10 AM EDT Generic External Data Provider CLINISYNC F inal Result Performing Organization Address [facility] de Phone Number [facility] * ALL FOLIC ACID (03/04/2025 7:30 AM EDT) FOLATE 10.50 8.60 - 58.90 ng/mL TBH 03/04/2025 7:30 AM EDT 03/04/2025 7:32 AM EDT Narrative CLINISYNC - 03/04/2025 9:54 AM EDT Generic External Data Provider CLINISYNC F ina Result Performing Organization Address [facility] de Phone Number [facility] * (ABNORMAL) TBH URINE T PROTEIN CREAT RATIO (03/04/2025 7:17 AM EDT) Only the most recent of2 resultswithin the time period is included. TOTAL PROTEIN URINE RANDOM 26.4(H) <=11.9 mg/dL TBH CREATININE URINE RANDOM 113.65 20.00 - 300.00 mg/dL TBH PROTEIN CREATININE RATIO URINE 0.23 TBH 03/04/2025 7:17 AM EDT 03/04/2025 7:32 AM EDT Narrative CLINISYNC - 03/04/2025 8:49 AM EDT Generic External Data Provider CLINISYNC F inal Result [facility] TBH * (ABNORMAL) ALL URINALYSIS (03/04/2025 7:17 AM EDT) Only the most recent of2 resultswithin the time period is included. COLOR URINE LT. YELLOW YELLOW TBH CLARITY URINE CLEAR CLEAR TBH SPECIFIC GRAVITY URINE 1.020 1.005 - 1.025 TBH PH URINE 6.0 5.0 - 9.0 TBH PROTEIN URINE TRACE NEG/TRACE mg/dL TBH GLUCOSE URINE UA >=1000(A) NEGATIVE mg/dL TBH BILIRUBIN URINE NEGATIVE NEGATIVE TBH KETONES URINE NEGATIVE NEGATIVE mg/dL TBH BLOOD URINE NEGATIVE NEGATIVE TBH NITRITE URINE NEGATIVE NEGATIVE TBH UROBILINOGEN URINE 1.0 0.2 - 1.0 EU/dL TBH LEUKOCYTE ESTERASE URINE NEGATIVE NEGATIVE TBH 03/04/2025 7:17 AM EDT 03/04/2025 7:32 AM EDT Narrative CLINISYNC - 03/04/2025 7:53 AM EDT Generic External Data Provider CLINISYNC F inal Result Performing Organization Address City/[facility] Co de Phone Number CLIN[facility] TB * (ABNORMAL) POCT glycosylated hemoglobin (Hb A1C) docked device (02/26/2025 11:38 AM EDT) Pathologist [facility] Hemoglobin A1C 6.8 Blood Venous blood specimen / Unknown 02/26/2025 11:38 AM EDT Zoila Fountain NP POINT OF CARE TEST ENTER/GUTIERREZ T ORDERABLES Final Result * METANEPHRINES, FRAC, QN, 24-HR (02/08/2025 6:15 AM EDT) ZGVAVBWEE29.1 122 Undefined ug/L TBH Comment: This test was developed and its performance characteristics determined by [facility]. It has not been cleared or approved by the Food and Drug Administration. NICDAPJYZ97.2 305 156 - 729 ug/24 hr TBH AYQKQJYVG97.3 42 Undefined ug/L TBH Comment: This test was developed and its performance characteristics determined by [facility]. It has not been cleared or approved by the Food and Drug Administration. SJTJAEGBX70.4 105 58 - 276 ug/24 hr TBH Comment: Performed at: [address] [id number] Health Associate: Paige Laura MD, Phone: [phone] 02/08/2025 6:15 AM EDT 02/11/2025 10:32 AM EDT Narrative CLINISYNC - 02/13/2025 10:11 AM EDT 2500 Generic External Data Provider LAB BLOOD ORDERAB LES Final Result [facility] * TSH W/REFLEX T4 (02/07/2025 6:55 AM EDT) Pathologist [facility] TSH 3.474 0.358 - 3.740 uIU/mL TB 02/07/2025 6:55 AM EDT 02/07/2025 6:57 AM EDT Narrative CLINISYNC - 02/07/2025 11:29 AM EDT Generic External Data Provider LAB BLOOD ORDERAB LES Final Result Performing Organization Address City/[facility]/ZIP Co de Phone Number [facility] * ALDOSTERONE LCMS, SERUM (02/07/2025 6:55 AM EDT) Pathologist [facility] ALDOSTERONE LCMS, SERUM 14.9 0.0 - 30.0 ng/dL TBH Comment: This test was developed and its performance characteristics determined by [facility]. It has not been cleared or approved by the Food and Drug Administration. Performed at: [address] [id number] Health Associate: Paige Laura MD, Phone: [phone] 02/07/2025 6:55 AM EDT 02/07/2025 6:57 AM EDT Narrative CLINISYNC - 02/13/2025 4:09 PM EDT Generic External Data Provider LAB BLOOD ORDERAB LES Final Result Performing Organization Address City/[facility]/ZIP Co de Phone Number [facility] * (ABNORMAL) RENIN,PLASMA (02/07/2025 6:55 AM EDT) RENIN ACTIVITY, PLASMA <0.167(A) 0.167 - 5.380 ng/mL/hr [facility] Comment: This test was developed and its performance characteristics determined by [facility]. It has not been cleared or approved by the Food and Drug Administration. Performed at: [address] [id number] Health Associate: Paige Laura MD, Phone: [phone] 02/07/2025 6:55 AM EDT 02/07/2025 6:57 AM EDT Narrative CLINISYNC - 02/11/2025 11:08 AM EDT Generic External Data Provider CLINISYNC F inal Result Performing Organization Address [facility] Co de Phone Number [facility] * TB VITAMIN D 25 [place] (02/07/2025 6:55 AM EDT) VITAMIN D 26.1 ng/mL [facility] Comment: <20 ng/mL Vit D deficient 20-<30 ng/mL Vit D insufficient 30-100 ng/mL Vit D sufficient >100 ng/mL Potential Toxicity 02/07/2025 6:55 AM EDT 02/07/2025 6:57 AM EDT Narrative CLINISYNC - 02/07/2025 12:31 PM EDT Generic External Data Provider CLINISYNC F inal Result Performing Organization Address City/[facility] Co de Phone Number [facility] * (ABNORMAL) HMHP PTH, INTRAOPERATIVE (02/07/2025 6:55 AM EDT) PTH, INTACT 101(A) 15 - 65 pg/mL TB Comment: Performed at: [address] [id number] Health Associate: Dionicio Clements PhD, Phone: [phone] 02/07/2025 6:55 AM EDT 02/07/2025 6:57 AM EDT Narrative CLINISYNC - 02/09/2025 11:07 AM EDT Generic External Data Provider CLINISYNC F inal Result Performing Organization Address [facility] de Phone Number [facility] TB * HMHP CORTISOL (02/07/2025 6:55 AM EDT) Pathologist [facility] CORTISOL 18.5 6.2 - 19.4 ug/dL [facility] Comment: Please Note: The reference interval and flagging for this test is for an AM collection. If this is a PM collection please use: Cortisol PM: 2.3-11.9 Performed at: [address] [id number] Health Associate: Dionicio Clements PhD, Phone: [phone] 02/07/2025 6:55 AM EDT 02/07/2025 6:57 AM EDT Narrative CLINISYNC - 02/08/2025 8:08 AM EDT us Generic External Data Provider CLINISYNC F inal Result Performing Organization Address [facility] Co de Phone Number [facility] TB * ALL URIC ACID (02/07/2025 6:55 AM EDT) Pathologist [facility] URIC ACID 7.0 3.5 - 7.2 mg/dL TB 02/07/2025 6:55 AM EDT 02/07/2025 6:57 AM EDT Narrative CLINISYNC - 02/07/2025 11:29 AM EDT Generic External Data Provider CLINISYNC F inal Result Performing Organization Address [facility] Co de Phone Number CLINIS[facility]NC [facility] * Microalbumin / creatinine urine ratio (11/09/2023 [...] Performing Organization Information Site ID: QPT Name: [facility] Address: [address] [place] [address], [address] [place] [phone] Director: Isauro Norman MD Surya Hinton MD LAB URINE ORDERABLES Final Resul t [facility] * Colonoscopy (11/03/2023 9:39 AM EDT) Anatomical Region Laterality Modality Endoscopy Davide Frias MD ENDOSCOPY PROCEDURE ORDERABL ES Final Result * (ABNORMAL) Cologuard?? colon cancer screening (08/20/2023 7:00 AM EST) NONINV COLON CA DNA+OCC BLD SCRN STL-IMP Positive( A) Negative 09/02/2023 2:11 AM EST [facility] (CLIA #:[id number]) Comment: POSITIVE TEST RESULT. A positive Cologuard [...] Stahl. et al, N Engl J Med 2014;370(14):6106-0951.) Cologuard may produce a false negative or false positive result (no colorectal cancer or precancerous polyp present at colonoscopy follow up). A negative Cologuard test result does not guarantee the absence of CRC or advanced adenoma (pre-cancer). The current Cologuard screening interval is every 3 years. ([place] [employer] Society and U.S. Multi-Society Task Force). Cologuard performance data in a 10,000 patient pivotal study using colonoscopy as the reference method can be accessed at the following location: www.[employer]/results. Additional description of the Cologuard test process, warnings and precautions can be found at www.BuzzDoesogREPPrd.com. Stool specimen (specimen) Rectal contents / Unknown 08/20/2023 7:00 AM EST 08/23/2023 9:31 AM EST Surya Hinton MD LAB MOLECULAR DIAGNOSTICS ORDERA BLES Final Result [facility] (CLIA #:[id number]) [address] [place] [address], [facility] (CLIA #:[id number]) [address] [place] [address] * Color Fundus Photography - OU - Both Eyes (09/17/2019 12:00 PM EST) Anatomical Region Laterality Modality Head Fundus Photograp hy 09/17/2019 12:0 0 PM EST Narrative 09/17/2019 12:00 PM EST PERFORMED AT [facility] LOCATION:[id number] [facility] Procedure Note CONVERSION, GENERIC - 11/30/2022 PERFORMED AT [facility] LOCATION:[id number] [facility] Marielena PIMENTEL OPHTH PHOTOGRAPHY Final Result from Last 3 Months or Most Recently Relevant to Health Maintenance Insurance [employer] MEDICARE [facility] MED RISK EPO Care Teams Wine Consultant Relationship Specialty Start Date End Date Surya Hinton MD [address] [address] PCP - General Family Medicine 11/22/22
--- OUTSIDE RECORDS SUMMARY | 2025-04-17 16:12 | XMS_ITS | Encounter Summary ---
Author Organization [facility] Address [address] [facility] [place] [address] Care Team Providers Care Second Class Welder Name Role Phone Surya Hinton MD Unavailable Surya Hinton MD Primary Care Provider [phone] Zoila Fountain NP Unavailable [phone] Encounter Details Date Type Department Care Team (Late Contact Info) Description 11/06/2023 Abstract [facility] [place] [facility] [address] [facility] [address] [place] [phone] Surya Hinton MD [address] [facility] [address] [place] [address] Social History Tobacco Use Types Packs/Day Years [...] [address] [facility] [address] [place] [address] Zoila Fountain BEET FLUMER [address] [facility] [address] [place] [address] documented as of this encounter Visit Diagnoses Not on filedocumented in this encounter Care Teams Second Class Welder Relationship Specialty Start Date End Date Surya Hinton MD [address] [facility] 110 [place] [address] PCP - [place] [employer] 10/15/20 Surya Hinton MD [address] [facility] 110 [place], [place] [phone] PCP - General Family Medicine 11/22/22 Zoila Fountain, IBIS [address] [facility] 110 [place] [address] PCP - [facility] [employer] 03/17/24 documented as of this encounter
--- OUTSIDE RECORDS SUMMARY | 2025-04-17 16:12 | XMS_ITS | Encounter Summary ---
Author Organization [facility] Address [address] [place] [address] Care Team Providers Care Human Resources Operations Coordinator Name Role Phone Surya Hinton MD Unavailable Surya Hinton MD Primary Care Provider [phone] Zoila Fountain NP Unavailable [phone] Encounter Details Date Type Department Care Team (Late st Contact Info) Description 11/03/2023 Orders Only [facility] [address] [phone] Davide Cobb MD [address] [address] Social History Tobacco Use Types [...] Medince [address] [facility] [address] [place] [phone] Zoila Fountain, [employer] [address] [facility] [address] [place] [address] documented as of this encounter Procedures Procedure Name Priority Date/Time Associated Diagnosis Comments COLONOSCOPY Routine 11/03/2023 9:39 AM EDT documented in this encounter Results * Colonoscopy (11/03/2023 9:39 AM EDT) Anatomical Region Laterality Modality Endoscopy us Davide Frias MD ENDOSCOPY PROCEDURE ORDERABL ES Final Result documented in this encounter Visit Diagnoses Not on filedocumented in this encounter Care Teams Human Resources Operations Coordinator Relationship Specialty Start Date End Date Surya Hinton MD [address] [facility] 110 [place] [address] PCP - [place] [employer] 10/15/20 Surya Hinton MD [address] [facility] 110 [place] [address] PCP - General Family Medicine 11/22/22 Zoila Fountain [employer] [address] [facility] 110 [place] [address] PCP - [place] [employer] 03/17/24 documented as of this encounter
--- OUTSIDE RECORDS SUMMARY | 2025-04-17 16:12 | XMS_ITS | Encounter Summary ---
Author Organization [facility] Address [address] [facility] [place] [address] Care Team Providers Care Executive Sales Assistant Name Role Phone Surya Hinton MD Primary Care Provider [phone] Encounter Details Date Type Department Care Team ([facility] Contact Info) Description 12/25/2024 Abstract [facility] [place] [facility] [address] [facility] 110 [place] [phone] Surya Hinton MD [address] [facility] 110 [place] [address] Social History Tobacco Use Types Packs/Day Years [...] Encounters Date Type Department Care Team ([facility] Contact Info) Description 08/28/2025 1:00 PM EST Office Visit [facility] [place] [facility] [address] [facility] 110 [place] [phone] Zoila Fountain NP [address] [facility] 110 [place] [address] documented as of this encounter Visit Diagnoses Not on filedocumented in this encounter Care Teams Executive Sales Assistant Relationship Specialty Start Date End Date Surya Hinton MD 112 [facility] 110 [place] [address] PCP - General Family Medicine 11/22/22 documented as of this encounter
--- OUTSIDE RECORDS SUMMARY | 2025-04-17 16:13 | XMS_ITS | Encounter Summary ---
Author Organization [facility] Address [address] [facility] [place] [address] Care Team Providers Care Lens Cementer Name Role Phone Surya Hinton MD Primary Care Provider [phone] Encounter Details Date Type Department Care Team ([facility] Contact Info) Description 03/10/2025 Abstract [facility] [place] [facility] [address] [facility] 110 [place] [address] Surya Hinton MD [address] [facility] 110 [place] [address] Social History Tobacco Use Types Packs/Day Years [...] Upcoming Encounters Date Type Department Care Team ([facility] Contact Info) Description 08/28/2025 1:00 PM EST Office Visit [facility] [place] [facility] [address] [facility] 110 [place] [address] Zoila Fountain NP [address] [facility] 110 [place] [address] documented as of this encounter Visit Diagnoses Not on filedocumented in this encounter Care Teams Lens Cementer Relationship Specialty Start Date End Date Surya Hinton MD 112 [facility] 110 [place] [address] PCP - General Family Medicine 11/22/22 documented as of this encounter
--- OUTSIDE RECORDS SUMMARY | 2025-04-17 16:13 | XMS_ITS | Encounter Summary ---
Author Organization [facility] Address [address] [facility] [place] [address] Care Team Providers Care Motor Patrol Operator Name Role Phone Surya Hinton MD Unavailable Surya Hinton MD Primary Care Provider [phone] Zoila Fountain NP Unavailable [phone] Encounter Details Date Type Department Care Team [...] Visit [facility] [place] Pederson [address] [facility] 110 [place] [address] Zoila Fountain FIRE PREVENTION BUREAU CAPTAIN [address] [facility] 110 [place] [address] documented as of this encounter Procedures Procedure Name Priority Date/Time Associated Diagnosis Comments CA ECHO DOPPLER COMPLETE 06/02/2023 2:39 PM EST documented in this encounter Results * CA ECHO DOPPLER COMPLETE (06/02/2023 2:39 PM EST) Anatomical Region Laterality Modality Other 06/02/2023 2:39 PM EST Narrative 06/02/2023 2:39 [place] [address] Cardiology Report Signed Patient: LISA JURADO MR#: [id number] : 1955 Acct:[id number] Age/Sex: 68 / M ADM Date: 06/01/23 Loc: CARD Attending Dr: EDISON HOPPER APRN Ordering Physician: EDISON HOPPER APRN Date of Service: 06/01/23 Procedure(s): CA echo doppler complete Accession Number(s): [id number] cc: Patient Name: LISA JURADO MR#: [id number] : 1955 Exam Date: 06/01/2023 Ordering Doctor: EDISON HOPPER RIGGING [employer] CONTR[employer]S AIRCRAFT MECHANIC ECHOCARDIOGRAM REPORT PROCEDURE: CARDIO PULMONARY ECHOCARDIO M/2D COMP INDICATIONS: Syncope and collapse, coronary artery disease, CABGx6, [place], hypertension, diabetes COMPARISON: None. DESCRIPTION: COMPLETE ECHOCARDIOGRAM [...] Signed By: 06/02/23 1440 DD/ 1439 TD/TT: Laborer High Density Press: Procedure Note Radiology, Radiologist, MD - 06/02/2023 [place] [address] Cardiology Report Signed Patient: LISA JURADO LMR#: [id number] : 1955cct:[id number] Age/Sex: 68 / MADM Date: 06/01/23 Loc: CARD Attending Dr: EDISON HOPPER APRN Ordering Physician: EDISON HOPPER APRN Date of Service: 06/01/23 Procedure(s): CA echo doppler complete Accession Number(s): [id number] cc: Patient Name: LISA JURADO MR#: [id number] : 1955 Exam Date: 06/01/2023 Ordering Doctor: EDISON HOPPER CNP ECHOCARDIOGRAM REPORT PROCEDURE: CARDIO PULMONARY ECHOCARDIO M/2D COMP INDICATIONS: Syncope and collapse, coronary artery disease, CABGx6,OK, hypertension, diabetes COMPARISON: None. DESCRIPTION: COMPLETE ECHOCARDIOGRAM [...] M.D. Signed By:06/02/23 1440 DD/ 1439 TD/TT: Laborer High Density Press: Generic External Data Provider [facility] Final Result documented in this encounter Visit Diagnoses Not on filedocumented in this encounter Care Teams Motor Patrol Operator Relationship Specialty Start Date End Date Surya Hinton MD [address] [place] [address] PCP - [place] [employer] 10/15/20 Surya Hinton MD [address] [facility] 110 [place] [address] PCP - General Family Medicine 11/22/22 Zoila Fountain NP [address] [facility] 110 [place] [address] PCP - [place] [employer] 03/17/24 documented as of this encounter
--- OUTSIDE RECORDS SUMMARY | 2025-04-17 16:13 | XMS_ITS | Encounter Summary ---
Author Organization [facility] Address [address] [facility] [place] [address] Care Team Providers Care Air Brake Tester Name Role Phone Surya Mast MD Unavailable Surya Mast MD Primary Care Provider [phone] Zoila Fountain NP Unavailable [phone] Encounter Details Date Type Department Care Team [...] [place] Pederson [address] [facility] 110 [place] [address] Zoila Fountain PLUMBER MAINTENANCE [address] [facility] 110 [place] [address] documented as of this encounter Procedures Procedure Name Priority Date/Time Associated Diagnosis Comments VASC US CAROTID ARTERY DUPLEX BILATERAL 06/01/2023 3:24 PM EST documented in this encounter Results * Vascular US carotid artery duplex bilateral (06/01/2023 3:24 PM EST) Anatomical Region Laterality Modality Neck Ultrasound 06/01/2023 3:24 PM EST Narrative 06/01/2023 3:24 PM EST [address] [address] Ultrasound Report Signed Patient: LISA JURADO MR#: [id number] : 1955 Acct:[id number] Age/Sex: 68 / M ADM Date: 06/01/23 Loc: CARD Attending Dr: EDISON HOPPER APRN Ordering Physician: EDISON HOPPER APRN Date of Service: 06/01/23 Procedure(s): US carotid duplex BI Accession Number(s): [id number] cc: SURYA MAST ; EDISON HOPPER APRN [place] [id number] Patient Name: LISA JURADO MRN: [id number] date: 1955 Sex: M Assigned Patient Location: CARD Current Patient Location: CARD Accession/Order Number: [id number] Exam Date: 06/01/2023 10:00 Report Date: 06/01/2023 [...] Signed By: 06/01/23 1526 DD/ 1524 TD/TT: Cutting Machine Fixer: Procedure Note Radiology, Radiologist, MD - 06/01/2023 [place] [address] Ultrasound Report Signed Patient: LISA JURADO LMR#: [id number] : 1955cct:[id number] Age/Sex: 68 / MADM Date: 06/01/23 Loc: CARD Attending Dr: EDISON HOPPER APRN Ordering Physician: EDISON HOPPER APRN Date of Service: 06/01/23 Procedure(s): US carotid duplex BI Accession Number(s): [id number] cc: SURYA MAST ; EDISON HOPPER APRN [place] [address] Patient Name: LISA JURADO MRN: [id number] date: 1955 Sex: M Assigned Patient Location: CARD Current Patient Location: CARD Accession/Order Number: [id number] Exam Date: 06/01/2023 10:00 Report Date: 06/01/2023 [...] US Thresholds (Reference: Mono EG, et al. [id number]; 214:247-252) Stenosis (%) PSV (cm/sec) VICA/VCCA 0-49 <150 <2.5 50-69 150-225 2.5-4.0 >70 >225 >4.0 Electronically authenticated by: IFEANYI FREY Date: 06/01/2023 15:24 Dictated By: Ifeanyi Frey M.D. Signed By:06/01/23 1526 DD/ 1524 TD/TT: Cutting Machine Fixer: us Generic External Data Provider IMG US PROCEDURES Final Result documented in this encounter Visit Diagnoses Not on filedocumented in this encounter Care Teams Air Brake Tester Relationship Specialty Start Date End Date Surya Mast MD [address] [place] [address] [address] PCP [facility] [employer] 10/15/20 Surya Mast MD [address] [place] [address] [address] PCP - General Family Medicine 11/22/22 Zoila Fountain NP [address] [place] [address] [address] PCP - [facility] [facility] 03/17/24 documented as of this encounter
--- OUTSIDE RECORDS SUMMARY | 2025-04-17 16:13 | XMS_ITS | Encounter Summary ---
Author Organization [facility] Address [address] [place] [address] Care Team Providers Care Gas Charger Name Role Phone Surya Hinton MD Primary Care Provider [phone] Encounter Details Date Type Department Care Team (Latest Contact Info) Description 04/10/2025 Travel Social History Tobacco Use Types Packs/Day [...] [facility] [address] [place] [phone] Reed Estrella MD [address] [place] [address] Persistent atrial fibrillation (CMS/HCC) 04/22/2025 12:00 PM EDT - 04/22/2025 3:00 PM EDT Surgery [facility] V[facility] [address] [place] [address] Reed Estrella MD [address] [place] [address] Ablation a-fib w/ pvi [22494 (CPT )] documented as of this encounter Visit Diagnoses Not on filedocumented in this encounter Care Teams Gas Charger Relationship Specialty Start Date End Date Surya Hintno MD [address] [place] [address] PCP - General 05/18/22 documented as of this encounter
--- OUTSIDE RECORDS SUMMARY | 2025-04-17 16:13 | XMS_ITS | Encounter Summary ---
Author Organization [facility] Address [address] [facility] [place] [address] Care Team Providers Care Light Coil Winder Name Role Phone Surya Hinton MD Unavailable Surya Hinton MD Primary Care Provider [phone] Zoila Fountain NP Unavailable [phone] Encounter Details Date Type Department Care Team (Late Contact Info) Description 06/02/2023 Orders Only [facility] [place] Pederson [address] [facility] 110 [place] [address] A, Unknown Practice [address] [place], [place] [address] Social History Tobacco Use Types Packs/Day Years [...] [place] Pederson [address] [facility] 110 [place] [address] Zoila Fountain, WALL SCRAPER [address] [facility] 110 [place] [address] documented as of this encounter Procedures Procedure [...] filedocumented in this encounter Care Teams Light Coil Winder Relationship Specialty Start Date End Date Surya Hinton MD 112 [facility] 110 [place] [address] PCP - [place] [employer] 10/15/20 Surya Hinton MD 112 [facility] 110 [place] [address] PCP - General Family Medicine 11/22/22 Zoila Fountain WALL SCRAPER 112 [facility] 110 [place] [address] PCP - [place] [employer] 03/17/24 documented as of this encounter
--- OUTSIDE RECORDS SUMMARY | 2025-04-17 16:13 | XMS_ITS | Encounter Summary ---
Author Organization [facility] Address [address] [place] [address] Care Team Providers Care Building Attendant Name Role Phone Surya Hinton MD Unavailable Surya Hinton MD Primary Care Provider [phone] Zoila Fountain NP Unavailable [phone] Encounter Details Date Type Department Care Team (Late Contact Info) Description 11/23/2023 Abstract [facility] [place] Pederson [address] [facility] 110 [place] [address] Surya Hinton MD [address] [facility] 110 [place] [address] Social History Tobacco Use Types Packs/Day Years [...] [address] [facility] 110 [place] [address] Zoila Fountain DIRECTOR TARGETED MARKETING [address] [facility] 110 [place] [address] documented as of this encounter Visit Diagnoses Not on filedocumented in this encounter Care Teams Building Attendant Relationship Specialty Start Date End Date Surya Hinton MD [address] [facility] 110 [place] [address] PCP - [place] [employer] 10/15/20 Surya Hinton MD [address] [facility] 110 [place], [place] [address] PCP - General Family Medicine 11/22/22 Zoila Fountain, IBIS [address] [facility] 110 [place] [address] PCP - [place] [employer] 03/17/24 documented as of this encounter
--- OUTSIDE RECORDS SUMMARY | 2025-04-17 16:13 | XMS_ITS | Encounter Summary ---
Author Organization [facility] Address [address] [facility] [place] [address] Care Team Providers Care Professor Of Nursing Name Role Phone Surya Hinton MD Primary Care Provider [phone] Zoila Fountain PC SUPPORT SPECIALIST Unavailable [phone] Encounter Details Date Type Department Care Team ([facility] Contact Info) Description 09/13/2024 Abstract [facility] [place] [facility] [address] [facility] 110 [place] [address] Surya Hinton MD [address] [facility] 110 [place] [address] Social History Tobacco Use Types Packs/Day Years [...] Upcoming Encounters Date Type Department Care Team ([facility] Contact Info) Description 08/28/2025 1:00 PM EST Office Visit [facility] [place] [facility] [address] [facility] 110 [place] [address] Zoila Fountain NP [address] [facility] 110 [place] [address] documented as of this encounter Visit Diagnoses Not on filedocumented in this encounter Care Teams Professor Of Nursing Relationship Specialty Start Date End Date Surya Hinton MD 112 [facility] 110 [place] [address] PCP - General Family Medicine 11/22/22 Zoila Fountain NP 112 [facility] 110 [place] [address] PCP - [place] [employer] 03/17/24 documented as of this encounter
--- OUTSIDE RECORDS SUMMARY | 2025-04-17 16:13 | XMS_ITS | Encounter Summary ---
Author Organization [facility] Address [address] [facility] [place] [address] Care Team Providers Care Co Pilot Name Role Phone Surya Hinton MD Unavailable Surya Hinton MD Primary Care Provider [phone] Zoila Fountain NP Unavailable [phone] Encounter Details Date Type Department Care Team (Late Contact Info) Description 07/05/2023 Abstract [facility] [place] Pederson [address] [facility] 110 [place] [address] Surya Hinton MD [address] [facility] 110 [place] [address] Social History Tobacco Use Types Packs/Day Years [...] Pederson [address] [facility] 110 [place] [address] Zoila Fountain ORCHESTRA CONDUCTOR [address] [facility] 110 [place] [address] documented as of this encounter Visit Diagnoses Not on filedocumented in this encounter Care Teams Co Pilot Relationship Specialty Start Date End Date Surya Hinton MD [address] [facility] 110 [place] [address] PCP - [place] [employer] 10/15/20 Surya Hinton MD [address] [facility] 110 [place], [place] [address] PCP - General Family Medicine 11/22/22 Zoila Fountain, IBIS [address] [facility] 110 [place] [address] PCP - [place] [employer] 03/17/24 documented as of this encounter
--- OUTSIDE RECORDS SUMMARY | 2025-04-17 16:13 | XMS_ITS | Encounter Summary ---
Author Organization [facility] Address [address] [facility] [place] [address] Care Team Providers Care Coal Unloader Name Role Phone Surya Hinton MD Primary Care Provider [phone] Encounter Details Date Type Department Care Team (Late Contact Info) Description 04/15/2025 Clinisync Result Encounter N[facility] External [...] Team ([facility] Contact Info) Description 08/28/2025 1:00 PM EST [facility] [place] [facility] [address] [facility] 110 [place] [address] Zoila Fountain NP [address] [facility] 110 [place] [address] documented as of this encounter Procedures Procedure Name Priority Date/Time Associated Diagnosis Comments ITP 04/15/2025 2:25 PM EDT documented in this encounter Results * ITP (04/15/2025 2:25 PM EDT) Anatomical Region Laterality Modality Other 04/15/2025 2:25 PM EDT Narrative 04/15/2025 8:05 [place] [address] Cardiac Rehab Report Signed Patient: LISA JURADO MR#: [id number] : 1955 Acct:[id number] Age/Sex: 69 / M ADM Date: 02/27/25 Loc: CR Attending Dr: Lucila Clark M.D. Ordering Physician: Lucila Clark M.D. Date of Service: 04/15/25 Procedure(s): ITP Accession Number(s): [id number] cc: [facility] Test Date: 2025-04-15 Pat Name: LISA JURADO Department: Room: - Gender: Male Coffee Plantation Worker: : 1955 Requested By: LUCILA CLARK Order Number: [id number] Reading MD: MUSA RAHMAN M.D. Interpretive Statements Electronically Signed On 04-15-2025 20:05:28 EDT by MUSA RAHMAN M.D. Dictated By: MUSA RAHMAN Signed By: 04/15/25200404/15/252004 DD/ 24 TD/TT: Barrel Filler: Procedure Note Radiology, Radiologist, MD - 04/15/2025 [place] [address] Cardiac Rehab Report Signed Patient: LISA JURADO LMR#: [id number] : 1955cct:[id number] Age/Sex: 69 / MADM Date: 02/27/25 Loc: CR Attending Dr: Lucila Clark M.D. Ordering Physician: Lucila Clark M.D. Date of Service: 04/15/25 Procedure(s): ITP Accession Number(s): [id number] cc: [facility] Test Date: 2025-04-15 Pat Name: LISA JURADO Department: Room: - Gender: Male Coffee Plantation Worker: : 1955 Requested By: LUCILA CLARK Order Number: [id number] Elizabeth MD: MUSA RAHMAN M.D. Interpretive Statements Electronically Signed On 04-15-2025 20:05:28 EDT by MUSA RAHMAN M.D. Dictated By: MUSA RAHMAN Signed By:04/15/25200404/15/252004 DD/ 1425 TD/TT: Barrel Filler: us Generic External Data Provider [facility] Final Result documented in this encounter Visit Diagnoses Not on filedocumented in this encounter Care Teams Coal Unloader Relationship Specialty Start Date End Date Surya Hinton MD 112 [place] [address] PCP - General Family Medicine 11/22/22 documented as of this encounter
--- OUTSIDE RECORDS SUMMARY | 2025-04-17 16:13 | XMS_ITS | Encounter Summary ---
Author Organization [facility] Address [address] [place] [address] Care Team Providers Care Proof Machine Operator Name Role Phone Surya Hinton MD Unavailable Surya Hinton MD Primary Care Provider [phone] Zoila Fountain NP Unavailable [phone] Encounter Details Date Type Department Care Team (Late Contact Info) Description 11/28/2023 Abstract [facility] [place] Pederson [address] [facility] 110 [place] [address] Surya Hinton MD [address] [facility] [address] [place] [address] Social History Tobacco Use Types Packs/Day Years [...] Pederson [address] [facility] 110 [place] [address] Zoila Fountain TUTORING CLINICIAN [address] [facility] [address] [place] [address] documented as of this encounter Visit Diagnoses Not on filedocumented in this encounter Care Teams Proof Machine Operator Relationship Specialty Start Date End Date Surya Hinton MD [address] [facility] 110 [place] [address] PCP - [place] [employer] 10/15/20 Surya Hinton MD [address] [facility] 110 [place], [place] [address] PCP - General Family Medicine 11/22/22 Zoila Fountain, IBIS [address] [facility] 110 [place] [address] PCP - [place] [employer] 03/17/24 documented as of this encounter
--- OUTSIDE RECORDS SUMMARY | 2025-04-17 16:13 | XMS_ITS | Clinical Summary ---
Author Organization [employer] [facility] Address [id number] [address] [place] [address] Care Team Providers Care Manager Landscape Name Role Phone Unavailable Primary Care Provider [...]
--- OUTSIDE RECORDS SUMMARY | 2025-04-17 16:13 | XMS_ITS | Encounter Summary ---
Author Organization [facility] Address [address] [facility] [place] [address] Care Team Providers Care Associate Civil Engineer Name Role Phone Surya Hinton MD Primary Care Provider [phone] Zoila Fountain CRIMINAL RESEARCH SPECIALIST Unavailable [phone] Encounter Details Date Type Department Care Team ([facility] Contact Info) Description 09/13/2024 Abstract [facility] [place] [facility] [address] [facility] 110 [place] [address] Surya Hinton MD [address] [facility] 110 [place] [address] Social History Tobacco Use Types Packs/Day Years [...] Upcoming Encounters Date Type Department Care Team ([facility] Contact Info) Description 08/28/2025 1:00 PM EST Office Visit [facility] [place] [facility] [address] [facility] 110 [place] [address] Zoila Fountain NP [address] [facility] 110 [place] [address] documented as of this encounter Visit Diagnoses Not on filedocumented in this encounter Care Teams Associate Civil Engineer Relationship Specialty Start Date End Date Surya Hinton MD 112 [facility] 110 [place] [address] PCP - General Family Medicine 11/22/22 Zoila Fountain NP 112 [facility] 110 [place] [address] PCP - [place] [facility] 03/17/24 documented as of this encounter
--- OUTSIDE RECORDS SUMMARY | 2025-04-17 16:13 | XMS_ITS | Encounter Summary ---
Author Organization [facility] Address [address] [facility] [place] [address] Care Team Providers Care Ion Implant Machine Operator Name Role Phone Surya Hinton MD Unavailable Surya Hniton MD Primary Care Provider [phone] Zoila Fountain NP Unavailable [phone] Encounter Details Date Type Department Care Team (Late Contact Info) Description 11/15/2023 Abstract [facility] [place] Pederson [address] [facility] [address] [place] [address] Surya Hinton MD [address] [facility] [address] [place] [address] Social History Tobacco Use Types Packs/Day Years [...] [address] [facility] [address] [place] [address] Zoila Fountain AIRLINE FLIGHT ATTENDANT [address] [facility] [address] [place] [address] documented as of this encounter Visit Diagnoses Not on filedocumented in this encounter Care Teams Ion Implant Machine Operator Relationship Specialty Start Date End Date Surya Hinton MD [address] [facility] 110 [place] [address] PCP - [place] [employer] 10/15/20 Surya Hinton MD [address] [facility] 110 [place], [place] [address] PCP - General Family Medicine 11/22/22 Zoila Fountain, IBIS [address] [facility] 110 [place] [address] PCP - [place] [facility] 03/17/24 documented as of this encounter
--- OUTSIDE RECORDS SUMMARY | 2025-04-17 16:13 | XMS_ITS | Encounter Summary ---
Author Organization [facility] Address [address] [facility] [place] [address] Care Team Providers Care Software Quality Automation Engineer Name Role Phone Surya Hinton MD Primary Care Provider [phone] Encounter Details Date Type Department Care Team ([facility] Contact Info) Description 11/07/2024 Abstract [facility] [place] [facility] [address] [facility] 110 [place] [address] Surya Hinton MD [address] [facility] 110 [place] [address] Social History Tobacco Use Types Packs/Day Years [...] Encounters Date Type Department Care Team ([facility] Contact Info) Description 08/28/2025 1:00 PM EST Office [facility] [place] [facility] [address] [facility] [address] [place] [address] Zoila Fountain NP [address] [facility] [address] [place] [address] documented as of this encounter Visit Diagnoses Not on filedocumented in this encounter Care Teams Software Quality Automation Engineer Relationship Specialty Start Date End Date Surya Hinton MD [address] [facility] [address] [place] [address] PCP - General Family Medicine 11/22/22 documented as of this encounter
--- OUTSIDE RECORDS SUMMARY | 2025-04-17 16:13 | XMS_ITS | Encounter Summary ---
Author Organization [facility] Address [address] [facility] [place] [address] Care Team Providers Care Police Patrol Lieutenant Name Role Phone Surya Hinton MD Unavailable Surya Hinton MD Primary Care Provider [phone] Zoila Fountain NP Unavailable [phone] Encounter Details Date Type Department Care Team (Late Contact Info) Description 03/15/2024 Abstract [facility] [place] Pederson [address] NBA [address] [place] [address] Surya Hinton MD [address] [place] [address] Social History Tobacco Use Types Packs/Day Years [...] [address] NBA 110 [place] [address] Zoila Fountain SERVICE COUNSELOR [address] [place] [address] documented as of this encounter Visit Diagnoses Not on filedocumented in this encounter Care Teams Police Patrol Lieutenant Relationship Specialty Start Date End Date Surya Hinton MD [address] [facility] 110 [place] [address] PCP - Saul Commercial 10/15/20 Surya Hinton MD [address] [facility] 110 [place], [place] [id number] PCP - General Family Medicine 11/22/22 Zoila Fountain, IBIS [address] [facility] 110 [place] [address] PCP - Saul Commercial 03/17/24 documented as of this encounter
--- OUTSIDE RECORDS SUMMARY | 2025-04-17 16:13 | XMS_ITS | Encounter Summary ---
Author Organization [facility] Address [address] [place] [address] Care Team Providers Care Cost Estimating Manager Name Role Phone Surya Hinton MD Primary Care Provider [phone] Reason for Visit * Reason Comments Med Refill Encounter Details Date Type Department Care Team (Late st Contact Info) Description 03/15/2023 Refill [facility] Heart at [facility] [address] [place] [address] Judi Wilson MD [address] [facility] [place] [address] Benign hypertensive heart disease without [...] Description 04/22/2025 12:00 PM EDT Hospital Encounter [facility] Vascular Lab [address] [place] [address] Reed Estrella MD [address] [place] [address] Persistent atrial fibrillation (CMS/HCC) 04/22/2025 12:00 PM EDT - 04/22/2025 3:00 PM EDT Surgery [facility] Vascular Lab [address] [place] [address] Reed Estrella MD [address] [place] [address] Ablation a-fib w/ pvi [61124 (CPT )] documented as of this encounter Visit Diagnoses Diagnosis Benign hypertensive heart disease without congestive heart failure Benign hypertensive heart disease without heart failure Persistent atrial fibrillation (CMS/HCC) Atrial fibrillation Persistent atrial fibrillation (CMS/HCC) Atrial fibrillation documented in this encounter Care Teams Cost Estimating Manager Relationship Specialty Start Date End Date Surya Hinton MD 3 [facility] PCP - General 05/18/22 documented as of this encounter
--- OUTSIDE RECORDS SUMMARY | 2025-04-17 16:13 | XMS_ITS | Encounter Summary ---
Author Organization [facility] Address [address] [facility] [place] [address] Care Team Providers Care Labor Specialist Name Role Phone Surya Hinton MD Unavailable Surya Hinton MD Primary Care Provider [phone] Zoila Fountain NP Unavailable [phone] Encounter Details Date Type Department Care Team (Late Contact Info) Description 01/30/2024 Abstract [facility] [place] Pederson [address] NBA [address] [place] [address] Surya Hinton MD [address] [place] [address] Social History Tobacco Use Types Packs/Day Years [...] [address] [place] [address] Zoila Fountain ENGAGEMENT EXECUTIVE [address] [place] [address] documented as of this encounter Visit Diagnoses Not on filedocumented in this encounter Care Teams Labor Specialist Relationship Specialty Start Date End Date Surya Hinton MD [address] [facility] 110 [place] [address] PCP - Saul Commercial 10/15/20 Surya Hinton MD [address] [facility] 110 [place], [place] [id number] PCP - General Family Medicine 11/22/22 Zoila Fountain, IBIS [address] [facility] 110 [place] [address] PCP - Saul Commercial 03/17/24 documented as of this encounter
--- OUTSIDE RECORDS SUMMARY | 2025-04-17 16:13 | XMS_ITS | Encounter Summary ---
Author Organization [facility] Address [address] [facility] [place] [address] Care Team Providers Care Flarer Name Role Phone Surya Hinton MD Primary Care Provider [phone] Encounter Details Date Type Department Care Team (Late Contact Info) Description 04/08/2025 Clinisync Result Encounter [facility] External Department [...] Upcoming Encounters Date Type Department Care Team ([facility] Contact Info) Description 08/28/2025 1:00 PM EST Office [facility] [address] NBA [address] [place] [address] Zoila Fountain NP [address] [place] [address] documented as of this encounter Procedures Procedure Name Priority Date/Time Associated Diagnosis Comments ITP 04/08/2025 7:17 AM EDT documented in this encounter Results * ITP (04/08/2025 7:17 AM EDT) Anatomical Region Laterality Modality Other 04/08/2025 7:17 AM EDT Narrative 04/08/2025 6:08 [place] [address] Cardiac Rehab Report Signed Patient: LISA JURADO MR#: [id number] : 1955 Acct:[id number] Age/Sex: 69 / M ADM Date: 02/27/25 Loc: CR Attending Dr: Lucila Clark M.D. Ordering Physician: Lucila Clark M.D. Date of Service: 04/08/25 Procedure(s): ITP Accession Number(s): [id number] cc: [facility] Test Date: 2025-04-08 Pat Name: LISA JURADO Department: Room: - Gender: Male Coater Helper: : 1955 Requested By: LUCILA CLARK Order Number: [id number] Reading MD: MUSA RAHMAN M.D. Interpretive Statements Patient may continue cardiac rehab as outlined in the treatment plan. Electronically Signed On 04-08-2025 18:08:24 EDT by MUSA RAHMAN M.D. Dictated By: MUSA RAHMAN Signed By: 04/08/25180704/08/251807 DD/ 0717 TD/TT: Rn Ostomy: Procedure Note Radiology, Radiologist, MD - 04/08/2025 The [place] [id number] Cardiac Rehab Report Signed Patient: LISA JURADO LMR#: [id number] : 1955cct:[id number] Age/Sex: 69 / MADM Date: 02/27/25 Loc: CR Attending Dr: Lucila Clark M.D. Ordering Physician: Lucila Clark M.D. Date of Service: 04/08/25 Procedure(s): ITP Accession Number(s): [id number] cc: [facility] Test Date: 2025-04-08 Pat Name: LISA JURADO Department: Room: - Gender: Male Coater Helper: : 1955 Requested By: LUCILA CLARK Order Number: [id number] Reading MD: MUSA RAHMAN M.D. Interpretive Statements Patient may continue cardiac rehab as outlined in the treatment plan. Electronically Signed On 04-08-2025 18:08:24 EDT by MUSA RAHMAN M.D. Dictated By: MUSA RAHMAN Signed By:04/08/25180704/08/251807 DD/ 0717 TD/TT: Rn Ostomy: us Generic External Data Provider [facility] Final Result documented in this encounter Visit Diagnoses Not on filedocumented in this encounter Care Teams Flarer Relationship Specialty Start Date End Date Surya Hinton MD [address] [address] PCP - General Family Medicine 11/22/22 documented as of this encounter
--- OUTSIDE RECORDS SUMMARY | 2025-04-17 16:13 | XMS_ITS | Encounter Summary ---
Author Organization [facility] Address [address] [facility] [place] [address] Care Team Providers Care Referral Nurse Name Role Phone Surya Hinton MD Unavailable Surya Hinton MD Primary Care Provider [phone] Zoila Fountain NP Unavailable [phone] Encounter Details Date Type Department Care Team (Late Contact Info) Description 12/04/2023 Abstract [facility] [place] Pederson [address] NBA [address] [place] [address] Surya Hinton MD [address] [place] [address] Social History Tobacco Use Types Packs/Day Years [...] [address] [place] [address] Zoila Fountain CHIEF DESIGN DRAFTER [address] [place] [address] documented as of this encounter Visit Diagnoses Not on filedocumented in this encounter Care Teams Referral Nurse Relationship Specialty Start Date End Date Surya Hinton MD [address] [facility] 110 [place] [address] PCP - Saul Commercial 10/15/20 Surya Hinton MD [address] [facility] 110 [place], [place] [address] PCP - General Family Medicine 11/22/22 Zoila Fountain, IBIS [address] [facility] 110 [place] [address] PCP - Saul Commercial 03/17/24 documented as of this encounter
--- OUTSIDE RECORDS SUMMARY | 2025-04-17 16:13 | XMS_ITS | Encounter Summary ---
Author Organization [facility] Address [address] [facility] [place] [address] Care Team Providers Care Senior Java Programmer Analyst Name Role Phone Surya Hinton MD Unavailable Surya Hinton MD Primary Care Provider [phone] Zoila Fountain NP Unavailable [phone] Encounter Details Date Type Department Care Team (Late Contact Info) Description 04/19/2023 Abstract [facility] [place] Pederson [address] [place] [address] Surya Hinton MD [address] [place] [address] Social History Tobacco Use Types Packs/Day Years [...] Pederson [address] [place] [address] Zoila Fountain AIRCRAFT ARMORER [address] [place] [address] documented as of this encounter Visit Diagnoses Not on filedocumented in this encounter Care Teams Senior Java Programmer Analyst Relationship Specialty Start Date End Date Surya Hinton MD [address] [facility] 110 [place] [address] PCP - Saul Commercial 10/15/20 Surya Hinton MD [address] [facility] 110 [place], [place] [address] PCP - General Family Medicine 11/22/22 Zoila Fountain, IBIS [address] [facility] 110 [place] [address] PCP - Saul Commercial 03/17/24 documented as of this encounter
--- OUTSIDE RECORDS SUMMARY | 2025-04-17 16:13 | XMS_ITS | Encounter Summary ---
Author Organization [facility] Address [address] [facility] [place] [address] Care Team Providers Care Central Supply Manager Name Role Phone Surya Hinton MD Unavailable Surya Hinton MD Primary Care Provider [phone] Zoila Fountain NP Unavailable [phone] Encounter Details Date Type Department Care Team (Late Contact Info) Description 11/21/2023 Abstract [facility] [place] Pederson [address] NBA [address] [place] [address] Surya Hinton MD [address] [place] [address] Social History Tobacco Use Types Packs/Day Years [...] [address] NBA [address] [place] [address] Zoila Fountain WRECKER OPERATOR [address] [place] [address] documented as of this encounter Visit Diagnoses Not on filedocumented in this encounter Care Teams Central Supply Manager Relationship Specialty Start Date End Date Surya Hinton MD [address] [facility] 110 [place] [address] PCP - Saul Commercial 10/15/20 Surya Hinton MD [address] [facility] 110 [place], [place] [address] PCP - General Family Medicine 11/22/22 Zoila Fountain, IBIS [address] [facility] 110 [place] [address] PCP - Saul Commercial 03/17/24 documented as of this encounter
--- OUTSIDE RECORDS SUMMARY | 2025-04-17 16:13 | XMS_ITS | Encounter Summary ---
Author Organization [facility] Address [address] [place] [facility] [place] [address] Care Team Providers Care Speech And Language Tutor Name Role Phone Surya Hinton MD Unavailable Surya Hinton MD Primary Care Provider [phone] Zoila Fountain NP Unavailable [phone] Encounter Details Date Type Department Care Team (Late Contact Info) Description 03/15/2024 Abstract [facility] [place] Pederson [address] [place] [address] Surya Hinton MD [address] [place] [address] Social History Tobacco Use Types Packs/Day Years [...] Pederson [address] [place] [address] Zoila Fountain SUBCONTRACTS MANAGER [address] [place] [address] documented as of this encounter Visit Diagnoses Not on filedocumented in this encounter Care Teams Speech And Language Tutor Relationship Specialty Start Date End Date Surya Hinton MD [address] [facility] 110 [place] [address] PCP - Saul Commercial 10/15/20 Surya Hinton MD [address] [facility] 110 [place], [place] [address] PCP - General Family Medicine 11/22/22 Zoila Fountain, IBIS [address] [facility] 110 [place] [address] PCP - Saul Commercial 03/17/24 documented as of this encounter
--- OUTSIDE RECORDS SUMMARY | 2025-04-17 16:13 | XMS_ITS | Clinical Summary ---
Author Organization [facility] Address [address] [place] [address] Care Team Providers Care Provisioning Specialist Name Role Phone Surya Hinton MD Primary Care Provider [phone] Allergies No known active allergies Medications aspirin [...] type, unspecified whether angina present, unspecified whether coquille or transplanted heart Take 1 tablet (10 [...] without esophag itis 06/08/2016 04/19/2023 Hyperlipidemia, unspecified 06/08/201610/2022 Muscle weakness (generalized) 06/08/2016 Non-ST elevation (NSTEMI) myocardial infarction 06/08/2016 04/19/2023 Encounters Date Type Department Care Team Description 04/10/2025 Travel 04/09/2025 4:15 PM EDT Lab [facility] Outpatient Draw Station [address] [place] [address] Diabetes mellitus (CMS/HCC) 04/09/2025 4:05 PM EDT - 04/09/2025 11:59 PM EDT Hospital Encounter [facility] CT Imaging [address] [place] [address] Diabetes mellitus (CMS/HCC) (Primary Dx); Persistent atrial fibrillation (CMS/HCC) Discharge Disposition: Home or Self Care () 02/19/2025 Abstract [facility] Cardiology [address] [facility] [place] [address] Reed Estrella MD Persistent atrial fibrillation (CMS/HCC) (Primary Dx) 02/19/2025 Telephone [facility] Cardiology [address] [place] [address] Della Cisneros MA 02/11/2025 Telephone [facility] Heart at [place] [address] [place] [address] Codie Reynoso MA from Last 3 Months Immunizations Immunization Administration [...] Recorded Patient Health Questionnaire-2 Score 0 08/17/2022 [place] Safety & Environment Answer Date Rec orded [...] Description 04/22/2025 12:00 PM EDT Hospital Encounter [facility] Heart [facility]ascular [facility] [address] [place] [address] Reed Estrella MD [address] [place] [address] Persistent atrial fibrillation (CMS/HCC) 04/22/2025 12:00 PM EDT - 04/22/2025 3:00 PM EDT Surgery [facility] Heart [facility] Vascular [place] [facility] [address] [place] [address] Reed Estrella MD [address] [place] [address] Ablation a-fib w/ pvi [72415 (CPT )] Health Maintenance Due Date Last Done Comments CT Colonography 1955 Diabetes: Hemoglobin A1C 1955 FOBT 1955 Medicare Annual Wellness (AWV) 1955 Sigmoidoscopy 1955 Diabetes: Retinopathy Screening 1963 Depression Screening 1965 Pneumococcal Vaccine: 50+ Years (1 of 2 - PCV) 1972 Adult Tetanus 1975 Zoster Vaccines (1 of 2) 2003 Fall Risk Screening 2018 FIT 08/20/2024 08/20/2023 COVID-19 Vaccine (4 - 2024-2 6 season) 2025 11/11/2020, 10/21/2020, 10/21/2020 Influenza Vaccine (#1) 2025 FIT-DNA 08/20/2026 08/20/2023 [...] 5:15 PM EDT Persistent atrial fibrillation (CMS/HCC) CREATININE, SERUM STAT 04/09/2025 4:1 1 PM EDT Diabetes mellitus (CMS/HCC) from Last 3 Months Results * CTA Chest W IV Contrast [...] signed: Poonam Mendiola MD. Reed Estrella MD IM CT PROCEDURES Final Result * (ABNORMAL) Creatinine, Serum (04/09/2025 4:11 PM EDT) Creatinine 1.58(H) 0.70 - 1.30 mg/dL 04/09/2025 4:40 PM EDT [facility] ([facility]) eGFR 46.5(L) >60.0 mL/min/1. 73m*2 04/09/2025 4:40 PM EDT [facility] ([facility]) Comment:The [facility] s estimated glomerular filtration rate (eGFR) [...] MD LAB BLOOD ORDERABLES Final Resu lt [facility] ([facility]) [address] [place] [address] from Last 3 Months Insurance [facility] MEDICARE Care Teams Provisioning Specialist Relationship Specialty Start Date End Date Surya Hinton MD [address] [place] [address] C PCP - General 05/18/22
--- OUTSIDE RECORDS SUMMARY | 2025-04-17 16:13 | XMS_ITS | Encounter Summary ---
Author Organization [facility] Address [address] [facility] [place] [address] Care Team Providers Care Fire Prevention Research Engineer Name Role Phone Surya Hinton MD Unavailable Surya Hinton MD Primary Care Provider [phone] Zoila Fountain NP Unavailable [phone] Encounter Details Date Type Department Care Team (Late Contact Info) Description 04/12/2023 Abstract [facility] [place] Pederson [address] [place] [address] Surya Hinton MD [address] [place] [address] Social History Tobacco Use Types Packs/Day Years [...] Pederson [address] [place] [address] Zoila Fountain REFRIGERATION PERSON [address] [place] [address] documented as of this encounter Visit Diagnoses Not on filedocumented in this encounter Care Teams Fire Prevention Research Engineer Relationship Specialty Start Date End Date Surya Hinton MD [address] [facility] 110 [place] [address] PCP - Saul Commercial 10/15/20 Surya Hinton MD [address] [facility] 110 [place], [place] [address] PCP - General Family Medicine 11/22/22 Zoila Fountain, IBIS [address] [facility] [address] [place] [address] PCP - Saul Commercial 03/17/24 documented as of this encounter
--- OUTSIDE RECORDS SUMMARY | 2025-04-17 16:13 | XMS_ITS | Clinical Summary ---
Author Organization [facility] Address [address] [place] [address] Phone Care Team Providers Care Manager Plan Name Role Phone Surya Hinton MD Primary Care Provider [phone] Social History Tobacco Use Types Packs/Day Years [...] of Treatment Not on file Care Teams Manager Plan Relationship Specialty Start Date End Date Surya Hinton MD [address] [place] [address] PCP - General 05/28/21
--- OUTSIDE RECORDS SUMMARY | 2025-04-17 16:13 | XMS_ITS | Encounter Summary ---
Author Organization [facility] Address [address] [facility] [place] [address] Care Team Providers Care Die Repair Name Role Phone Surya Hinton MD Primary Care Provider [phone] Zoila Fountain NEUROLOGY TECH Unavailable [phone] Encounter Details Date Type Department Care Team ([facility] Contact Info) Description 08/14/2024 Abstract [facility] Saran Corbett [facility] [address] [facility] 110 [place] [address] Surya Hinton MD [address] [facility] 110 [place] [address] Social History Tobacco Use Types Packs/Day Years [...] Upcoming Encounters Date Type Department Care Team ([facility] Contact Info) Description 08/28/2025 1:00 PM EST Office [facility] [address] [facility] 110 [place] [address] Zoila Fountain NP [address] [facility] 110 [place] [address] documented as of this encounter Visit Diagnoses Not on filedocumented in this encounter Care Teams Die Repair Relationship Specialty Start Date End Date Surya Hinton MD 112 [facility] 110 [place] [address] PCP - General Family Medicine 11/22/22 Zoila Fountain NP 112 [facility] 110 [place] [address] PCP - [place] Commercial 03/17/24 documented as of this encounter
--- OUTSIDE RECORDS SUMMARY | 2025-04-17 16:13 | XMS_ITS | Encounter Summary ---
Author Organization [facility] Address [address] [place] [address] Care Team Providers Care Scrap Hoist Operator Name Role Phone Surya Hinton MD Primary Care Provider [phone] Zoila Fountain SWEEPER OPERATOR HIGHWAYS Unavailable [phone] Encounter Details Date Type Department Care Team ([facility] Contact Info) Description 08/20/2024 Abstract [facility] Saran Corbett [facility] [address] [facility] 110 [place] [address] Surya Hinton MD [address] [facility] 110 [place] [address] Social History Tobacco Use Types Packs/Day Years [...] Team ([facility] Contact Info) Description 08/28/2025 1:00 PM EST Office Visit [facility] Saran Guerra [address] [facility] 110 [place] [address] Zoila Fountain NP [address] [facility] 110 [place] [address] documented as of this encounter Visit Diagnoses Not on filedocumented in this encounter Care Teams Scrap Hoist Operator Relationship Specialty Start Date End Date Surya Hinton MD 112 [facility] 110 [place] [address] PCP - General Family Medicine 11/22/22 Zoila Fountain NP 112 [facility] 110 [place] [address] PCP - [place] Commercial 03/17/24 documented as of this encounter
[2025-04-17 16:39] LABS: Hematocrit 32.1 % (42.0-54.0); Hemoglobin 9.9 g/dL (14.0-18.0); Immature Granulocytes Abs Auto 0.02 10^3/uL (0.00-0.03); Immature Granulocytes Pct Auto 0.3 % (0.0-0.5); Lymphocytes Absolute Auto 1.2 10^3/uL (1.2-3.8); Mean Corpuscular HGB Conc 30.8 g/dL (29.9-35.2); Mean Corpuscular Hemoglobin 27.0 pg (25.9-34.0); Mean Corpuscular Volume 87.5 fL (80.0-94.0); Platelet Count 259 10^3/uL (150-450); Red Blood Count 3.67 10^6/uL (4.70-6.10); White Blood Count 7.2 10^3/uL (4.0-11.0)
[2025-04-17 17:00] LABS: Anion Gap 15.4; Blood Urea Nitrogen 20.0 mg/dL (7.0-18.0); Calcium 8.4 mg/dL (8.5-10.1); Carbon Dioxide 25.9 mmol/L (21.0-32.0); Chloride 109 mmol/L (98-107); Estimated GFR (African America 54 (>=60 mL/min/1.73m^2); Estimated GFR (Non-African Ame 44 (>=60 mL/min/1.73m^2); Glucose 124 mg/dL (74-106); Potassium 4.3 mmol/L (3.5-5.1); Sodium 146 mmol/L (136-145)
--- OUTSIDE RECORDS SUMMARY | 2025-04-17 19:58 | XMS_ITS | CCD ---
Author Organization [facility] CliniSyin Care Team Providers Care Customer Relations Coordinator Name Role Phone PHYSICIAN, DEFAULT Unavailable Unavailable [...] ELTAHAWY, DR GAYTAN Attending Unavailable ELTAHAWY, DR GATYAN Consulting Unavailable ELTAHAWY, DR GAYTAN Admitting Unavailable [...] Unavailable Spencer Mast MD Primary Care Provider [phone] MD Spencer Mast Primary Care Provider MD Jagdeep Stiles II Attending Provider MD Spencer Mast Primary Care Provider [phone] MD Jagdeep Stiles II Attending Provider MD Davide Cobb Attending Provider Zoila Mosqueda NP Unavailable Pro MEDEL Mikaelatelly Jo Primary Care Provider Leidy Bennett APRN Attending Provider Pro Mikaelatelly Jo Primary Care Unavailable Jagdeep Stiles II [...] Cobb Admitting Unavailable Davide Cobb Attending Unavailable Spencer Mast MD Primary Care Provider [phone] Sarah Anne MD Attending Provider OZIEL ARELLANO Attending Unavailable BENNETT, LEIDY Referring Unavailable GROVERTON, OZIEL T Attending Unavailable BENNETT, LEIDY Referring Unavailable JETHRO WARE Attending Unavailable BENNETT, LEIDY Referring Unavailable BLACKSTON, OZIEL T Attending Unavailable BENNETT, LEIDY Referring Unavailable BLACKSTON, OZIEL T Attending Unavailable BENNETT, LEIDY Referring Unavailable JASON ARELLANOEMY T Attending Unavailable BENNETT, LEIDY Referring Unavailable ZOILA MOSQUEDA Attending Unavailable ZOILA MOSQUEDA Attending Unavailable ZOILA MOSQUEDA Attending Unavailable ZOILA MOSQUEDA Attending Unavailable OZIEL ARELLANO Attending Unavailable BENNETT, LEIDY Referring Unavailable JETHRO WARE Attending Unavailable BENNETT, LEIDY Referring Unavailable LEIDY JACOME Attending Unavailable BENNETT, LEIDY Referring Unavailable DARRYL MONCADA Attending Unavailable LEIDY BENNETT Referring Unavailable DARRYL MONCADA Attending Unavailable LEIDY BENNETT Referring Unavailable ZOILA MOSQUEDA Attending Unavailable NIKKO ROCHE Attending Unavailable NIKKO ROCHE Attending Unavailable REBEKAH, JUTE BAG CLIPPER Admitting Unavailable CUPDONNA, JUTE BAG CLIPPER Attending Unavailable JUDI WILSON Attending Unavailable ANGELY MUNOZ Attending Unavailable ANGELY MUNOZ Referring Unavailable NIKKO ROCHE Referring Unavailable REBEKAH, JUTE BAG CLIPPER Referring Unavailable MUSA MENJIVAR Referring Unavailable Medications Current Medications Medication Drug Class(es) Dates Sig (Normalized) Sig (Original) [id number] actuat albuterol 0.09 mg/actuat metered dose [...] 09/08/2023 Active apixaban 5 mg oral tablet (13 sources) Factor Xa Inhibitor Start: 11-13-2024 take [...] (Lipitor) 80 MG tablet Indications: 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 100 tablet 3 11/15/2023 Active Start: 07-31-2023 take 1 tablet by nadja th in the morning atorvastatin (Lipitor) 80 MG tablet Indications: Atherosclerosis of tun[place]-biloxi coronary artery with angina pectoris, unspecified whether tunica-biloxi or transplanted heart (CMS/HCC) TAKE 1 TABLET [...] (20 sources) Central alpha-2 Adrenergic Agonist Start: 03-03-2025 cloNIDine (Catapres) 0.2 MG tablet Indications: Hypertension secondary to other renal disorders TAKE ONE AND ONE-HALF TABLETS BY MOUTH TWICE DAILY (MORNING AND BEFORE BEDTIME) 270 tablet 3 03/03/2025 Active Start: 08-31-2023 cloNIDine (Cat apres) 0.2 MG tablet Indications: Hypertension secondary to [...] (20 sources) Sodium-Glucose Cotransporter 2 Inhibitor Start: 03-18-2025 take 1 tablet by mouth once daily Farxiga 10 MG Indications: Coronary artery disease without angina pectoris, unspecified vessel or lesion type, unspecified whether tunica-biloxi or transplanted heart Take 1 tablet by mouth once daily 100 tablet 3 03/18/2025 Active Start: 08-31-2023 take 1 tablet by nadja th once daily dapagliflozin (Farxiga) 10 MG Indications: Coronary artery disease without angina pectoris, unspecified vessel or lesion type, unspecified whether tunica-biloxi or transplanted heart Take 1 tablet (10 mg) by mouth Daily 100 tablet 3 11/15/2023 Active Start: 03-10-2023 take 1 tablet by nadja th in the morning dapagliflozin (Farxiga) 10 MG Indications: Coronary artery disease without angina pectoris, unspecified vessel or lesion type, unspecified whether tunica-biloxi or transplanted heart (CMS/HCC) Take 1 tablet [...] May, Active ezetimibe 10 mg oral tablet (13 sources) Dietary Cholesterol Absorption Inhibitor Start: 11-13-2024 [...] May, Active furosemide 40 mg oral tablet (16 sources) Loop Diuretic Start: 11-13-2024 End: 11-08-2025 [...] 17-Jun-2020 DO Start : 10-Sep-2019 Active Isosorbide Calhan itrate ER Active lisinopril 40 mg oral [...] mg tablet Active 75 MG PO Daily 90 February 25, 2025 2:33pm Complies with drug [...] 2023 1:00am March 06, 2024 8:09am Start: 05-28-2021 take 1 tablet by nadja once daily Spironolactone 25 MG Oral Tablet [...] Start: 12-16-2019 take 1 capsule by mo [facility] once daily at bedtime Terazosin HCl [...] [Coronary atherosclerosis of unspecified type of vessel, tunica-biloxi or graft] Onset: 2 02-14-2023 Chronic Diabetes [...] right knee] Onset: 4 Unclassified (1 source) E26.9 - Hyperaldosteronism, unspecified,I1A.0 - Resistant hypertension Unclassified (2 sources) Other persistent atrial fibrillation; Translations: [Other persistent atrial fibrillation] Onset: 5 Unclassified (1 source) Resistant hypertension; Translations: [Resistant [...] EHR Cmte Other aftercare (1 source) 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; Translations: [OTH [employer]BY SOFTWARE DEVELOPER CURRENT DRUG THERAPY] Onset: 01-31-2022 Episodic Other aftercare (1 source) regional intermodal truck driver (current) use of aspirin; Translations: [FDC CURRENT USE OF ASPIRIN] Onset: 01-31-2022 Episodic [...] source) Resistant hypertension; Translations: [Resistant hypertension] Onset: 11-13-2024 Results Test Name Value Interpretation Reference Range Facility CREATININE, SERUMon 04-09-20 Creatinine [Mass/Vol] 1.58 mg/dL High 0.70-1.30 [facility] Comment on above: Performed By: #### L AB383 ####[facility] [[email or web address]] LAB (TAM)[address] [place] [address] GLOMERULAR FILTRATION RATE ML/MIN/1.73 SQ M.PREDICTED 46.5 mL/min/1.73m*2 Low >60.0 [facility] Comment on above: Result Comment: [facility]???s estimated glomerular filtration rate (eGFR) will no longer include consideration of race in its calculation. The National Kidney Foundation???s eGFR Task Force developed new recommendations for [...] disproportionately affect any one group of individuals. Performed By: #### L AB383 ####[facility] [[email or web address]] LAB (TAM)[address] [place] [address] CTA CHEST W IV CONTRASTon CTA CHEST W IV CONTRAST CTA CHEST W IV CONTRAST 04/09/2025 4:46 [...] are obtained in various projections and saved. IMPRESSION: Evidence of prior [...] skeletal hyperostosis. Electronically signed: Poonam Mendiola MD. Not Vldtd Invalid Interpretation Code [facility] Comment on above: Order Comment: Pleas e schedule prior to Apr 22, patient will need BMP,CBC prior to exam ITPon 04-08-2025 [place] [address] Cardiac Rehab Report Signed Patient: LISA FULLER MR#: [id number] : 1955 Acct:[id number] Age/Sex: 69 / M ADM Date: 02/27/25 Loc: CR Attending Dr: Judi Wilson M.D. Ordering Physician: Judi Wilson M.D. Date of Service: 04/08/25 Procedure(s): ITP Accession Number(s): [id number] cc: [facility] Test Date: 2025-04-08 Pat Name: LISA FULLER Department: Room: - Gender: Male Teradata Architect: : 1955 Requested By: JUDI WILSON Order Number: [id number] Elizabeth MD: MUSA MENJIVAR M.D. Interpretive Statements Patient may continue cardiac rehab as outlined in the treatment plan. Electronically Signed On 04-08-2025 18:08:24 EDT by MUSA MENJIVAR M.D. Dictated By: MUSA MENJIVAR Signed By: 04/08/25180704/08/251807 DD/ 6 TD/TT: Computed Tomography Technologist: [facility] Nicole Puente MD - 04/08/2025 [place] [address] Cardiac Rehab Report Signed Patient: LISA FULLER MR#: [id number] : 1955 Acct:[id number] Age/Sex: 69 / M ADM Date: 02/27/25 Loc: CR Attending Dr: Judi Wilson M.D. Ordering Physician: Judi Wilson M.D. Date of Service: 04/08/25 Procedure(s): ITP Accession Number(s): [id number] cc: [facility] Test Date: 2025-04-08 Pat Name: LISA FULLER Department: Room: - Gender: Male Teradata Architect: : 1955 Requested By: JUDI WILSON Order Number: [id number] Elizabeth MEDEL: MUSA MENJIVAR M.D. Interpretive Statements Patient may continue cardiac rehab as outlined in the treatment plan. Electronically Signed On 04-08-2025 18:08:24 EDT by MUSA MENJIVAR M.D. Dictated By: MUSA MENJIVAR Signed By: 04/08/25180704/08/251807 DD/ TD/TT: Computed Tomography Technologist: [facility] Radiology Study observation (narrative) [facility] ITPOrdered By: Radiologist William cedillo on 04-08-2025 [facility] Work Phone: ITPon 03-14-2025 [place] [address] Cardiac Rehab Report Signed Patient: LISA FULLER MR#: [id number] : 1955 Acct:[id number] Age/Sex: 69 / M ADM Date: 02/27/25 Loc: CR Attending Dr: Judi Wilson M.D. Ordering Physician: Judi Wilson M.D. Date of Service: 03/07/25 Procedure(s): ITP Accession Number(s): [id number] cc: [facility] Test Date: 2025-03-07 Pat Name: LISA FULLER Department: Room: - Gender: Male Teradata Architect: : 1955 Requested By: JUDI WILSON Order Number: [id number] Elizabeth MD: Jody Landeros Interpretive Statements Session Date: Electronically Signed On 03-14-2025 13:28:24 EDT by Jody Landeros Dictated By: Jody Landeros M.D. Signed By: 03/14/25 1328 03/14/25 1328 DD/ 0739 TD/TT: Computed Tomography Technologist: [facility] Radiology Radiolkevin piper MD - 03/14/2025 [place] [address] Cardiac Rehab Report Signed Patient: LISA FULLER MR#: [id number] : 1955 Acct:[id number] Age/Sex: 69 / M ADM Date: 02/27/25 Loc: CR Attending Dr: Judi Wilson M.D. Ordering Physician: Judi Wilson M.D. Date of Service: 03/07/25 Procedure(s): ITP Accession Number(s): [id number] cc: [facility] Test Date: 2025-03-07 Pat Name: LISA FULLER Department: Room: - Gender: Male Teradata Architect: : 1955 Requested By: JUDI WILSON Order Number: [id number] Elizabeth MD: Jody Landeros Interpretive Statements Session Date: Electronically Signed On 03-14-2025 13:28:24 EDT by Jody Landeros Dictated By: Jody Landeros M.D. Signed By: 03/14/25 1328 03/14/25 1328 DD/ 0739 TD/TT: Computed Tomography Technologist: [facility] ITPOrdered By: Radiologist R adiology on 03-14-2025 [facility] Work Phone: ITPon 03-07-2025 Radiology Study observation (narrative) [facility] Prep for Procedureon 025 Prep for Procedure [id number] [address] L 1955 M Date Provider Department Center 03/05/2025 SherryBEATRICE LOCKHART [facility] VASC LAB MA HeartVAS Family History Problem Relation Age of Onset Coronary artery disease Mother Coronary artery disease Father Coronary artery disease Brother ALS Brother Stroke Brother Family Status - Relation Status Age at Mother Father Sister Alive Brother Normal [facility] ALL URINALYSISon 03-04-2025 BILIRUBIN URINE Negative NEGATIVE [facility] Healthcare BLOOD URINE Negative NEGATIVE [facility] Clarity (U) CLEAR CLEAR [facility] Color (U) LT. YELLOW YELLOW [facility] GLUCOSE URINE UA >=1000 Abnormal NEGATIVE mg/dL [facility] Healthcare Interpretation and review of laboratory results Abnormal [facility] Ketones Ql (U) Negative NEGATIVE mg/dL [facility] Leukocyte esterase Test strip Ql (U) Negative NEGATIVE [facility] NITRITE URINE Negative NEGATIVE [facility] pH (U) 6.0 [pH] 5.0 - 9.0 [facility] PROTEIN URINE TRACE NEG/TRACE mg/dL [facility] SPECIFIC GRAVITY URINE 1.020 1.005 - 1.025 [facility] UROBILINOGEN URINE 1.0 EU/dL 0.2 - 1.0 EU/dL [facility] CLINISYNC [facility] HbA1c (Bld) [Mass fraction]o n 02-26-2025 Interpretation and review of laboratory results Abnormal [facility] Laboratory - Hematology and Cell countson 02-26-2025 HbA1c (Bld) [Mass fraction] 6.8 % [facility] Abstracton 02-19-[id number] 1955 M Date Provider Department Center 02/19/2025 [id number]-UTVZANGELY MUNOZ [facility] [place] Family History Problem Relation Age of Onset Coronary artery disease Mother Coronary artery disease Father Coronary artery disease Brother ALS Brother Stroke Brother Family Status - Relation Status Age at Mother Father Sister Alive Brother [place] 36on 02-18-2025 36 Spoke with Lyric from [facility] cardiac rehab. He reported BP's to her: 172/128, 182/119. She did confirm with patient that he does have a follow up with nephrology next week on 02/25. Then spoke with patient and advised he keep that apt. I will send our notes to his spare fixer and request them to send us theirs. Patient verbalized understanding. [place] METANEPHRINES, FRAC, QN, 24- HRon 02-13-2025 XQQNLJLMC25.1 122 ug/L Undefined [facility] Comment on above: This test was develo ped and its performance characteristics determined by [facility]. It has not been cleared or approved by the Food and Drug Administration. MCPJNIAFC48.2 305 [facility] UNMIZGEUV49.3 42 ug/L Undefined [facility] Comment on above: This test was develo ped and its performance characteristics determined by [facility]. It has not been cleared or approved by the Food and Drug Administration. GQFPMEZBE38.4 105 [facility] Comment on above: Performed at: [address] [id number] In Shop Service Technician: Paige Laura MD, Phone: [phone] 02-[facility]-2025 [facility] Patient stopped by t [...] He is scheduled 02/13 for echo at [facility]. Normal [facility] Erythrocyte distribution wid th Auto (RBC) [Ratio]Ordered By: Sarah Anne on 02-07-2025 Erythrocyte distribution width (RBC) [Ratio] 15.8 % High 11.0-15.0 [facility] Glomerular filtration rate ( GFR) estimation in non- AmericanOrdered By: Sarah Anne on 02-07-2025 GFR/1.73 sq M.predicted among non-blacks MDRD (S/P/Bld) [Vol rate/Area] 32 mL/min/{1.73_m2} Low >=60 mL/min/1.7 3m 2 [facility] CBC WITH PLATELET NO DI FFERENTIALon 02-07-2025 [...] vol] 11.4 fL 9.5 - 13.5 fL [facility] PLT 179 [facility] RBC 3.95 Low [facility] TBH WBC 6.3 [facility] Hematocrit Auto (Bld) [Volum e fraction]Ordered By: Sarah Anne on 02-07-2025 Hematocrit (Bld) [Volume fraction] 35.2 % Low 42.0-54.0 [facility] Hemoglobin [Mass/volume] in BloodOrdered By: Sarah Anne on 02-07-2025 Hemoglobin (Bld) [Mass/Vol] 11.5 g/dL Low 14.0-18.0 [facility] Laboratory - Chemistry and C hemistry - challengeOrdered By: Sarah Anne on 02-07-2025 Bilirubin Ql (U) Negative NEGATIVE [facility] Glucose (U) [Mass/Vol] mg/dL Abnormal NEGATIVE [facility] Ketones Ql (U) Negative NEGATIVE [facility] pH (U) 6.0 [pH] 5.0-9.0 [facility] Specific gravity (U) [Rel density] 1.015 1.005-1.02 5 [facility] Urobilinogen Qn (U) 1.0 {Iraida'U}/dL 0.2-1.0 [facility] Albumin [Mass/Vol] 3.2 g/dL Low 3.4-5.0 [facility] Calcium [Mass/Vol] 8.4 mg/dL Low 8.5-10.1 [facility] Chloride [Moles/Vol] 107 mmol/L 98-107 [facility] CO2 [Moles/Vol] 27.1 mmol/L 21.0-32.0 [facility] Creatinine [Mass/Vol] 2.05 mg/dL High 0.70-1.30 [facility] GFR/1.73 sq M.predicted MDRD (S/P/Bld) [Vol rate/Area] 39 mL/min/{1.73_m2} Low >=60 mL/min/1.7 3m 2 [facility] Glucose [Mass/Vol] 134 mg/dL High 74-106 [facility] Magnesium [Mass/Vol] 2.0 mg/dL 1.8-2.4 [facility] Potassium [Moles/Vol] 4.5 mmol/L 3.5-5.1 [facility] Sodium [Moles/Vol] 143 mmol/L 136-145 [facility] TSH Qn 3.474 m[IU]/L 0.358-3.74 0 [facility] Urate [Mass/Vol] 7.0 mg/dL 3.5-7.2 [facility] Urea nitrogen [Mass/Vol] 27.0 mg/dL High 7.0-18.0 [facility] Urea nitrogen/Creatinine [Mass ratio] 13.2 mg/mg [facility] Laboratory - Specimen inform ationOrdered By: Sarah Anne on 02-07-2025 Appearance (U) CLEAR CLEAR [facility] Color (U) LT. YELLOW YELLOW [facility] Laboratory - UrinalysisOrder ed By: Sarah Anne on 02-07-2025 Leukocyte esterase Test strip Ql (U) Negative NEGATIVE [facility] Nitrite Ql (U) Negative NEGATIVE [facility] Protein (U) [Mass/Vol] 47.1 mg/dL High <=11.9 [facility] Protein Ql (U) 30 mg/dL Abnormal NEG/TRACE [facility] Leukocytes [#/volume] correc yohana for nucleated erythrocytes in Blood by Automated counOrdered By: Sarah Anne on 02-07-2025 WBC corrected for nucl RBC Auto (Bld) [#/Vol] 6.3 10 3/uL 4.0-11.0 [facility] MCH Auto (RBC) [Entitic mass ]Ordered By: Sarah Anne on 02-07-2025 MCH (RBC) [Entitic mass] 29.1 pg 25.9-34.0 [facility] MCHC Auto (RBC) [Mass/Vol]Or dered By: Sarah Anne on 02-07-2025 MCHC (RBC) [Mass/Vol] 32.7 g/dL 29.9-35.2 [facility] MCV Auto (RBC) [Entitic vol] Ordered By: Sarah Anne on 02-07-2025 MCV (RBC) [Entitic vol] 89.1 fL 80.0-94.0 [facility] No Panel InformationOrdered By: Sarah Anne on 02-07-2025 Urine Occult Blood MODERATE Abnormal NEGATIVE [facility] Urine Random Creatinine 141.02 mg/dL 20.00-300. 00 [facility] 25-Hydroxy Vitamin D Total 26.1 ng/mL [facility] Comment on above: <20 ng/mL Vit D defi cient20-<30 ng/mL Vit D dssiofzyteyq82-573 ng/mL Vit D sufficient>100 ng/mL Potential Toxicity Parathyroid Hormone (Intact) 101 pg/mL Abnormal 15-65 [facility] Comment on above: Performed at: - [facility] [employer] [address] [id number] Director: Dionicio Clements PhD, Phone: [phone] Phosphorus Level 4.0 mg/dL 2.6-4.7 [facility] Platelet mean volume Auto (B ld) [Entitic vol]Ordered By: Sarah Anne on 02-07-2025 Platelet mean volume (Bld) [Entitic vol] 11.4 fL 9.5-13.5 [facility] Platelets Auto (Bld) [#/Vol] Ordered By: Sarah Anne on 02-07-2025 Platelets (Bld) [#/Vol] 179 10 3/uL 150-450 [facility] RBC Auto (Bld) [#/Vol]Ordere d By: Sarah Anne on 02-07-2025 RBC (Bld) [#/Vol] 3.95 10 6/uL Low 4.70-6.10 [facility] Renin activityOrdered By: Alhaji Anne on 02-07-2025 Renin (P) [Catalytic activity/Vol] <0.167 ng/mL/hr Abnormal 0.167-5.38 0 [facility] Comment on above: This test was develo ped and its performance characteristicsdetermined by [facility]. It has not been cleared orapproved by the Food and Drug Administration.Performed at: - [facility] [id number] Director: Paige Laura MD, Phone: [phone] Serum or plasma aldosterone measurement (mass/volume)Ordered By: Sarah Anne on 02-07-2025 Aldosterone [Mass/Vol] 14.9 ng/dL 0.0-30.0 [facility] Comment on above: This test was develo ped and its performance characteristicsdetermined by [facility]. It has not been cleared orapproved by the Food and Drug Administration.Performed at: [facility] [id number] Director: Paige Laura MD, Phone: [phone] Serum or plasma anion gap de terminationOrdered By: Sarah Anne on 02-07-2025 Anion gap [Moles/Vol] 13.4 mmol/L [facility] Urine protein/creatinine rat ioOrdered By: Sarah Anne on 02-07-2025 Protein/Creatinine (U) [Ratio] 0.33 [facility] Office Visiton 01-06-2025 Follow-up visit [id number] [address] L 1955 Date Provider Department Center 01/06/2025 32457-COJOANGELY MUNOZ [facility] Family History Problem Relation Age of Onset Coronary artery disease Mother Coronary artery disease Father Coronary artery disease Brother ALS Brother Stroke Brother Family Status - Relation Status Age at Mother Father Sister Alive Brother Level of Service:89623 [place] OFFICE/OUTPATIENT ESTABLISHED MOD MDM 30 MIN [place] 36on 12-18-2024 36 RX for Xarelto sent to patient's pharmacy. Tried to contact patient and make him aware but his is not setup so I was unable to LM. [place] 36 Patient called to me kalia you aware he does not want to take Eliquis anymore due to fatigue. Says he was just sitting this morning eating breakfast and his nose began to bleed. He said he's willing to try something else. Can I send RX for Xarelto 20mg daily? Please advise. Thanks. [place] ITPon 12-18-2024 [facility] [address] [place] [address] Cardiac Rehab Report Signed Patient: LISA FULLER Del MR#: [id number] : 1955 Acct:[id number] Age/Sex: 69 / M ADM Date: 12/18/24 Loc: CR Attending Dr: Judi Wilson M.D. Ordering Physician: Judi Wilson M.D. Date of Service: 12/18/24 Procedure(s): ITP Accession Number(s): [id number] cc: [facility] Test Date: 2024-12-18 Pat Name: LISA FULLER Department: Room: - Gender: Male Teradata Architect: : 1955 Requested By: JUDI WILSON Order Number: [id number] Elizabeth MD: Raphael Justin Interpretive Statements Okay to proceed with outlined treatment plan. Electronically Signed On 12-18-2024 16:43:09 EDT by Raphael Justin Dictated By: Raphael Justin D.O. Signed By: 12/18/24 1643 12/18/24 1643 DD/ 1442 TD/TT: Computed Tomography Technologist: [facility] Radiology, Radiologi MD feliz - 12/19/2024 [place] [address] Cardiac Rehab Report Signed Patient: LISA FULLER MR#: [id number] : 1955 Acct:[id number] Age/Sex: 69 / M ADM Date: 12/18/24 Loc: CR Attending Dr: Judi Wilson M.D. Ordering Physician: Judi Wilson M.D. Date of Service: 12/18/24 Procedure(s): ITP Accession Number(s): [id number] cc: [facility] Test Date: 2024-12-18 Pat Name: LISA FULLER Department: Room: - Gender: Male Teradata Architect: : 1955 Requested By: JUDI WILSON Order Number: [id number] Elizabeth MD: Raphael Justin Interpretive Statements Okay to proceed with outlined treatment plan. Electronically Signed On 12-18-2024 16:43:09 EDT by Raphael Justin Dictated By: Raphael Justin D.O. Signed By: 12/18/24 1643 12/18/24 1643 DD/ 1442 TD/TT: Computed Tomography Technologist: [place] [address] Cardiac Rehab Report Signed Patient: LISA FULLER MR#: [id number] : 1955 Acct:[id number] Age/Sex: 69 / M ADM Date: 12/18/24 Loc: CR Attending Dr: Judi Wilson M.D. Ordering Physician: Raphael Justin D.O. Date of Service: 12/13/24 Procedure(s): ITP Accession Number(s): [id number] cc: [facility] Test Date: 2024-12-13 Pat Name: LISA FULLER Department: Room: - Gender: Male Teradata Architect: : 1955 Requested By: Raphael Justin Order Number: [id number] Elizabeth MD: Raphael Justin Interpretive Statements Okay to proceed with outlined treatment plan. Electronically Signed On 12-18-2024 16:35:58 EDT by Raphael Justin Dictated By: Raphael Justin D.O. Signed By: 12/18/24 1636 12/18/24 1636 DD/ 1327 TD/TT: Computed Tomography Technologist: Nicole Bautista MD - 12/19/2024 [place] [address] Cardiac Rehab Report Signed Patient: LISA FULLER MR#: [id number] : 1955 Acct:[id number] Age/Sex: 69 / M ADM Date: 12/18/24 Loc: CR Attending Dr: Judi Wilson M.D. Ordering Physician: Raphael Justin D.O. Date of Service: 12/13/24 Procedure(s): ITP Accession Number(s): [id number] cc: [facility] Test Date: 2024-12-13 Pat Name: LISA FULLER Department: Room: - Gender: Male Teradata Architect: : 1955 Requested By: Raphael Justin Order Number: [id number] Reading MD: Raphael Justin Interpretive Statements Okay to proceed with outlined treatment plan. Electronically Signed On 12-18-2024 16:35:58 EDT by Raphael Justin Dictated By: Raphael Justin D.O. Signed By: 12/18/24 1636 12/18/24 1636 DD/ 1327 TD/TT: Computed Tomography Technologist: [facility] Radiology Study observation (narrative) [facility] ITPOrdered By: Radiologist R adiology on 12-18-2024 [facility] Work Phone: [facility] Work Phone: ITPon 12-13-2024 Radiology Study observation (narrative) [facility] Follow-Upon 12-12-2024 Follow-Up [id number] Viri Fuller rd L 1955 M Date Provider Department Center 12/12/2024 Pj-JUDI WILSON [facility] Family History Problem Relation Age of Onset Coronary artery disease Mother Coronary artery disease Father Coronary artery disease Brother ALS Brother Stroke Brother Family Status - Relation Status Age at Mother Father Sister Alive Brother Level of Service:69281 [place] OFFICE/OUTPATIENT ESTABLISHED MOD MDM 30 MIN [place] HPon 11-29-2024 HP H&P reviewed. The delores ruggiero was examined and there are no changes to the H&P. New onset atrial fibrillation with rapid ventricular response. He is referred for CADEN guided cardioversion. He has been started on Eliquis. In addition he has at least moderate mitral regurgitation by recent transthoracic echocardiogram. We will also assess the severity of the mitral regurgitation by CADEN. Normal [facility] NURSNOTEon 11-29-2024 NURSNOTE Bedside swallow stud [...] of unit with all of belongings. Normal [facility] Laboratory - Hematology and Cell countson 11-26-2024 HbA1c (Bld) [Mass fraction] 8.2 % [facility] No Panel Informationon 11-26 Interpretation and review of laboratory results Abnormal [facility] 36on 11-22-2024 36 Phone call for TB L ab 11/22/2024 Critical value on BNP of 2.[address] [facility] ALL BASIC METABOLIC PANELon 11-22-2024 Anion gap [Moles/Vol] 11.3 mmol/L NO [facility] Calcium [Mass/Vol] 8.5 mg/dL 8.5 - 10. 1 mg/dL [facility] Chloride [Moles/Vol] 105 mmol/L 98 - 10 7 mmol/L [facility] CO2 [Moles/Vol] 27.8 mmol/L 21.0 - 32.0 mmol/L [facility] Creatinine [Mass/Vol] 1.84 mg/dL High 0.70 - 1.30 mg/dL [facility] GFR/1.73 sq M.predicted CKD-EPI (S/P/Bld) [Vol rate/Area] 44 Low >=60 mL/min/1.7 3m 2 [facility] Glucose [Mass/Vol] 181 mg/dL High 74 - 106 mg/dL [facility] Potassium [Moles/Vol] 4.1 mmol/L 3.5 - 5.1 mmol/L [facility] Sodium [Moles/Vol] 140 mmol/L 136 - 145 mmol/L [facility] EGFR-NON AF BELIZEAN 36 Low >=60 mL/min/1.7 3m 2 [facility] Urea nitrogen [Mass/Vol] 26 mg/dL High 7.0 - 18.0 mg/dL [facility] Urea nitrogen/Creatinine [Mass ratio] 14.1 mg/mg [facility] ALL PRO BNPon 11-22-2024 NT PRO B TYPE NATRIURETIC PEPT 2595 pg/mL Critically high NINF - 900.0 pg/mL [facility] Comment on above: RESULTS CALLED TO OLGUIN [...] medical history of CAD status post CABG 2016, hypertension, CKD ( initially seen in [address] Goff), CELESTINA, obesity, DM, and palpitations. In his previous visit in February 2024, he was recommended to follow-up with his spare fixer, the patient had stated his PCP had [...] encouraged him to reestablish care with his spare fixer. He otherwise denies chest pain, palpitations, lightheadedness, [...] Musculoskeletal: Inspect (more content not included)... Normal [facility] Office Visiton 11-13-2024 Follow-up visit [id number] Viri Fuller rd L 1955 M Date Provider Department Center 11/13/2024 [id number] ROCHE [facility] Family History Problem Relation Age of Onset Coronary artery disease Mother Coronary artery disease Father Coronary artery disease Brother ALS Brother Stroke Brother Family Status - Relation Status Age at Mother Father Sister Alive Brother Level of Service:65921 [place] OFFICE/OUTPATIENT ESTABLISHED HIGH MDM [address] [facility] CA ECHO DOPPLER COMPLETEon 0 11-08-2024 [facility] l [address] [place] [address] Cardiology Report Signed Patient: LISA FULLER MR#: [id number] : 1955 Acct:[id number] Age/Sex: 69 / M ADM Date: 11/07/24 Loc: CARD Attending Dr: Nikko Roche NP Ordering Physician: Nikko Roche NP Date of Service: 11/07/24 Procedure(s): CA echo doppler complete Accession Number(s): [id number] cc: SPENCER MAST ; Nikko Roche NP Patient Name: LISA FULLER MR#: [id number] : 1955 Exam Date: 11/07/2024 Ordering Doctor: [...] Valve Peak V (more content not included)... [facility] Radiology, Radiologi MD feliz - 11/08/2024 [place] [address] Cardiology Report Signed Patient: LISA FULLER MR#: [id number] : 1955 Acct:[id number] Age/Sex: 69 / M ADM Date: 11/07/24 Loc: CARD Attending Dr: Nikko Roche NP Ordering Physician: Nikko Roche NP Date of Service: 11/07/24 Procedure(s): CA echo doppler complete Accession Number(s): [id number] cc: SPENCER MAST ; Nikko Roche NP Patient Name: LISA FULLER MR#: [id number] : 1955 Exam Date: 11/07/2024 Ordering Doctor: [...] 09:40 Dictated By: MUSA MENJIVAR Signed By: 11/08/24 0941 DD/ TD/TT: Computed Tomography Technologist: [facility] Radiology Study observation (narrative) [facility] CA ECHO DOPPLER COMPLETEOrde red By: Radiologist Radiology on 11-08-2024 [facility] Work Phone: ALL BASIC METABOLIC PANELon 10-11-2024 Anion gap [Moles/Vol] 14.2 mmol/L [facility] Calcium [Mass/Vol] 8.5 mg/dL 8.5 - 10. 1 mg/dL [facility] Chloride [Moles/Vol] 107 mmol/L 98 - 10 7 mmol/L [facility] CO2 [Moles/Vol] 26.7 mmol/L 21.0 - 32.0 mmol/L [facility] Creatinine [Mass/Vol] 1.66 mg/dL High 0.70 - 1.30 mg/dL [facility] GFR/1.73 sq M.predicted CKD-EPI (S/P/Bld) [Vol rate/Area] 50 Low >=60 mL/min/1.7 3m 2 [facility] Glucose [Mass/Vol] 188 mg/dL High 74 - 106 mg/dL [facility] Potassium [Moles/Vol] 3.9 mmol/L 3.5 - 5.1 mmol/L [facility] Sodium [Moles/Vol] 144 mmol/L 136 - 145 mmol/L [facility] TBH EGFR-NON AF BELIZEAN 41 Low >=60 mL/min/1.7 3m 2 [facility] Urea nitrogen [Mass/Vol] [...] Medical Center Office Visiton 10-04-2024 Follow-up visit [id number] JonnyViri darell Mathis Sr. 1955 M Date Provider Department Center 10/04/2024 [id number], ADAM [facility] Family History Problem Relation Age of Onset Coronary artery disease Mother Coronary artery disease Father Coronary artery disease Brother ALS Brother Stroke Brother Family Status - Relation Status Age at Mother Father Brother Level of Service:61877 [place] OFFICE/OUTPATIENT ESTABLISHED MOD MDM [address] [facility] MR shoulder RT wo conon MR shoulder RT wo con [facility] [place] [address] MRI Report Signed Patient: Lisa Fuller MR#: [id number] : 1955 Acct:[id number] Age/Sex: 69 / M ADM Date: 07/22/24 Loc: [facility] Room: Type: [facility] Attending Dr: Leidy Bennett APRN Copies to: [...] Valeriano Fuller M.D.07/22/2024 6:44 PM Dictation Location: [place] [address] Transcribed By: [facility] 07/22/241843 Dictated By: Valeriano Fuller II, MD 07/22/24 183 Signed By: 07/22/241843 Normal [facility] Magnetic resonance imaging r eportOrdered By: Valeriano Fuller on 07-22-2024 Study report [facility] [place] [address] [place] [address] MRI Report Signed Patient: Lisa Fuller SR MR#: [id number] : 1955 Acct:[id number] Age/Sex: 69 / M ADM Date: 5 Loc: [facility]: [facility] Attending Dr: Leidy Bennett APRN Copies to: [...] Valeriano Fuller M.D.07/22/2024 6:44 PM Dictation Location: RADIO--17 Transcribed By: ONEAL 07/22/241843 Dictated By: Valeriano Fuller II, MD 07/22/241831 Signed By: 07/22/241843 [facility] Work Phone: XR shoulder RT min 2V*on XR shoulder RT min 2V* [facility] [place] [address] [place] [address] XRay Report Signed Patient: Lisa Fuller MR#: [id number] : 1955 Acct:[id number] Age/Sex: 69 / M ADM Date: 06/25/24 Loc: [place] Room: Type: [facility] Attending Dr: Leidy Bennett APRN Copies to: Leidy Bennett APRN Ordering Provider: Leidy Bennett APRN Date of Service: 06/25/24 XR/XR shoulder RT min 2V*: [facility] RIGHT SHOULDER INJURY RIGHT SHOULDER - [...] 3:37 PM Dictation Location: RADIO-PC-18 Transcribed By: PWS 06/25/241536 Dictated By: Godwin Martin Jr, DO 06/25/241536 Signed By: 06/25/241536 Normal [facility] Capillary blood glucose melania urement by glucometer (mass/volume)Ordered By: Davide Cobb on 10-30-2023 Glucose [Mass/Vol] 168 mg/dL Normal [facility] Comment on above: Random Glucose Refer ence Range is dependent on time and content of last meal. Glucose of more than 200 mg/dL in a nonstressed, ambulatory subject supports the diagnosis of Diabetes Mellitus. Result Comment: [place] om Glucose Reference Range is dependent on time and content of last meal. Glucose of more than 200 mg/dL in a nonstressed, ambulatory subject supports the diagnosis of Diabetes Mellitus. Performed By: #### G LULS #### Point of Care testing , Glucose Poct Glucometerson 0 10-30-2023 Commemt1 Glu2: Cleaned Meter Normal [facility] Comment on above: Result Comment: PERF ORMED BY: [facility] [address] [place] [address] PATHOLOGIST PERFORMANCE IMPROVEMENT CONSULTANT HENOK YANEZ M.D. Performed By: #### G LULS #### Point of Care testing , Ck 10-30-2023 L Specimen: Received: 10/30/23 Status: ROSALINDA Hartley Num: [id number] Spec Type: Surgical Subm Dr: Davide Cobb MD Tissues: A Colon Biopsy (POLYP AT 20 CM) Procedures: HE/2, Gross/Micro L4 Age/ Patient Sex Location Account Attending Physician Lisa Fuller 68/M [place] [id number] Davide Cobb MD SPEC NUM: [id number] RECD: 10/30/23 STATUS: ROSALINDA HARTLEY NUM: [id number] IZAIAH: 10/30/[address]: Davide Cobb MD ENTERED: 10/30/23 [facility] DR: SPEC TYPE: Surgical DEPT: S ORDERED: HE/2, Gross/Micro L4 ORDERED: HE/2, Gross/Micro L4 Pathological Diagnosis Colon polyp biopsy at 20 cm: -Small tubular adenoma, removed Gross Description In formalin labeled polyp at 20 cm is one 0.6 x 0.4 x 0.2 cm piece of samuel-pink mucosa. Submitted entirely in A1. RG/JOSE ANGEL Clinical history: Positive Cologuard CPT Codes 83448 Specimen: [id number] Received: 10/30/23 Status: ANGIEFavio Hartley Num: [id number] Spec Type: Surgical Subm Dr: Davide Cobb MD Tissues: A Colon Biopsy (POLYP AT 20 CM) Procedures: NIKI/Kit Gross/Micro L4 Patient: Lisa Fuller SR [id number] (Continued) Signed (signature on file) Tameka Lacey MD 11/01/23 1250 Normal [facility] No Panel InformationOrdered By: Davide Cobb on 10-30-2023 Bedside Glucose Comment Glu2: cleaned meter [facility] XR knee BI 4Von 08-31-2023 XR knee BI 4V [facility] [place] [address] [place] [address] XRay Report Signed Patient: Lisa Fuller MR#: [id number] : 1955 Acct:[id number] Age/Sex: 68 / M ADM Date: 08/31/23 Loc: [facility] Room: Type: [facility] Attending Dr: Jagdeep Stiles II, MD Copies to: Jagdeep Stiles MD Ordering Provider: Jagdeep Stiles MD Date of Service: 08/31/23 XR/XR pelvis 1-2V: M25.562 - Pain in left knee ([id number]) XR/XR knee BI 4V: M25.561 - Pain [...] Martin Jr., D.O.08/31/2023 3:26 PM Dictation Location: [place] [address] Transcribed By: [facility] 08/31/23 1526 Dictated By: Godwin Martin Jr, DO 08/31/23 1524 Signed By: 08/31/23 1526 Normal [facility] COVID/FLU/RSV RT-PCRon 08-02 SARS-CoV-2 (COVID-19) RNA ANGÉLICA+probe Ql (Unsp spec) Negative [facility] Other COVID/FLU/RSV RT-PCR Positive [facility] Other COVID/FLU/RSV RT-PCR Negative [facility] [employer] Other ALBUMINon 09-08-2022 Albumin [Mass/Vol] 3.7 g/dL Normal 3.4-5.0 [facility] Comment on above: Performed By: #### P HOS, BMP, ALB, MG #### [facility] [address] [place] [address] Dr. Diamante Lacey CREATININE URINEon URINE CREAT 129.52 mg/dL Normal 20.00-300. 00 [facility] Comment on above: Performed By: #### C BIRGIT PROTU #### [facility] [address] [place] [address] Dr. Diamante Lacey HEMOGLOBINon 09-08-2022 Hemoglobin (Bld) [Mass/Vol] 13.2 g/dL Critically low 14.0-18.0 [facility] Comment on above: Performed By: #### H GB #### [facility] [address] [place] [address] Dr. Diamante Lacey MAGNESIUMon 09-08-2022 Magnesium [Mass/Vol] 1.5 mg/dL Critically low 1.8-2.4 [facility] Comment on above: Performed By: #### P HOS, BMP, ALB, MG #### [facility] [address] [place] [address] Dr. Diamante Lacey PHOSPHORUSon 09-08-2022 Phosphate [Mass/Vol] 3.3 mg/dL Normal 2.6-4.7 [facility] Comment on above: Performed By: #### P HOS, BMP, ALB, MG #### [facility] [address] [place] [address] Dr. Diamante Lacey PROF CHEM 8 (BAS METB)on Anion gap [Moles/Vol] 9.6 mmol/L Normal [facility] Comment on above: Performed By: #### P HOS, BMP, ALB, MG #### [facility] [address] [place] [address] [address] Diamante Lacey Calcium [Mass/Vol] 8.9 mg/dL Normal 8.5-10.1 [facility] Comment on above: Performed By: #### P HOS, BMP, ALB, MG #### [facility] [address] [place] [address] [address] Diamante Lacey Chloride [Moles/Vol] 106 mmol/L Normal 98-107 [facility] Comment on above: Performed By: #### P HOS, BMP, ALB, MG #### [facility] [address] [place] [address] Dr. Diamante Lacey CO2 [Moles/Vol] 30.5 mmol/L Normal 21.0-32.0 [facility] Comment on above: Performed By: #### P HOS, BMP, ALB, MG #### [facility] [address] [place] [address] Dr. Diamante Lacey Creatinine [Mass/Vol] 1.34 mg/dL Critically high 0.70-1.30 [facility] Comment on above: Performed By: #### P HOS, BMP, ALB, MG #### [facility] [address] [place] [address] Dr. Diamante Lacey EGFR-AF BELIZEAN >60 Normal >=60 [facility] Comment on above: Performed By: #### P HOS, BMP, ALB, MG #### [facility] [address] [place] [address] Dr. Diamante Lacey EGFR-NON AF BELIZEAN 53 mL/min/1.73m2 Critically low >=60 [facility] Comment on above: Performed By: #### P HOS, BMP, ALB, MG #### [facility] [address] [place] [address] [address] Diamante Lacey Glucose [Mass/Vol] 121 mg/dL Critically high 74-106 [facility] Comment on above: Performed By: #### P HOS, BMP, ALB, MG #### [facility] [address] [place] [address] Dr. Diamante Lacey Potassium [Moles/Vol] 4.1 mmol/L Normal 3.5-5.1 [facility] Comment on above: Performed By: #### P HOS, BMP, ALB, MG #### [facility] [address] [place] [address] Dr. Diamante Lacey Sodium [Moles/Vol] 142 mmol/L Normal 136-145 [facility] Comment on above: Performed By: #### P HOS, BMP, ALB, MG #### [facility] [address] [place] [address] Dr. Diamante Lacey Urea nitrogen [Mass/Vol] 19.0 mg/dL Critically high 7.0-18.0 [facility] Comment on above: Performed By: #### P HOS, BMP, ALB, MG #### [facility] [address] [place] [address] Dr. Diamante Lacey Urea nitrogen/Creatinine [Mass ratio] 14.2 mg/mg Normal [facility] Comment on above: Performed By: #### P HOS, BMP, ALB, MG #### [facility] [address] [place] [address] Dr. Diamante Lacey PROTEIN RAND URINEon 023 UR PROT 15.5 mg/dL Critically high <=11.9 [facility] Comment on above: Performed By: #### C REAU, PROTU #### [facility] [address] [place] [address] Dr. Diamante Lacey CBC AUTO DIFFon 06-06-2022 BASO # 0.1 103/ul Normal 0.0-0.1 [facility] Comment on above: Performed By: #### B MP #### [facility] [address] [place] [address] Dr. Diamante Lacey Basophils/100 WBC (Bld) 0.8 % Normal 0.2-2.0 [facility] Comment on above: Performed By: #### B MP #### [facility] [address] [place] [address] Dr. Diamante Lacey EO # 0.2 103/ul Normal 0.0-0.7 [facility] Comment on above: Performed By: #### B MP #### [facility] [address] [place] [address] Dr. Diamante Lacey Eosinophils/100 WBC (Bld) 3.0 % Normal 0.9-7.0 [facility] Comment on above: Performed By: #### B MP #### [facility] [address] [place] [address] Dr. Diamante Lacey Erythrocyte distribution width (RBC) [Ratio] 14.2 % Normal 11.0-15.0 [facility] Comment on above: Performed By: #### B MP #### [facility] [address] [place] [address] Dr. Diamante Lacey Hematocrit (Bld) [Volume fraction] 41.4 % Critically low 42.0-54.0 [facility] Comment on above: Performed By: #### B MP #### [facility] [address] [place] [address] Dr. Diamante Lacey Hemoglobin (Bld) [Mass/Vol] 14.0 g/dL Normal 14.0-18.0 [facility] Comment on above: Performed By: #### B MP #### [facility] [address] [place] [address] Dr. Diamante Lacey IG # 0.03 10e3/ul Normal 0.00-0.03 [facility] Comment on above: Performed By: #### B MP #### [facility] [address] [place] [address] Dr. Diamante Lacey IG % 0.4 % Normal 0.0-0.5 [facility] Comment on above: Performed By: #### B MP #### [facility] [address] [place] [address] Dr. Diamante Lacey LYMPH # 1.8 103/ul Normal 1.2-3.8 [facility] Comment on above: Performed By: #### B MP #### [facility] [address] [place] [address] Dr. Diamante Lacey Lymphocytes/100 WBC (Bld) 23.0 % Normal 20.5-60.0 [facility] Comment on above: Performed By: #### B MP #### [facility] [address] [place] [address] Dr. Diamante Lacey MANUAL DIFF REQ NO Normal [facility] Comment on above: Performed By: #### B MP #### [facility] [address] [place] [address] Dr. Diamante Lacey MCH (RBC) [Entitic mass] 30.3 pg Normal 25.9-34.0 [facility] Comment on above: Performed By: #### B MP #### [facility] [address] [place] [address] Dr. Diamante Lacey MCHC (RBC) [Mass/Vol] 33.8 g/dL Normal 29.9-35.2 [facility] Comment on above: Performed By: #### B MP #### [facility] [address] [place] [address] Dr. Diamante Lacey MCV (RBC) [Entitic vol] 89.6 fL Normal 80.0-94.0 [facility] Comment on above: Performed By: #### B MP #### [facility] [address] [place] [address] Dr. Diamante Lacey MONO # 0.8 103/ul Normal 0.3-0.8 [facility] Comment on above: Performed By: #### B MP #### [facility] [address] [place] [address] Dr. Diamante Lacey Monocytes/100 WBC (Bld) 9.8 % Normal 1.7-12.0 [facility] Comment on above: Performed By: #### B MP #### [facility] [address] [place] [address] Dr. Diamante Lacey NEUT # 5.0 103/ul Normal 1.4-6.5 [facility] Comment on above: Performed By: #### B MP #### [facility] [address] [place] [address] Dr. Diamante Lacey Neutrophils/100 WBC (Bld) 63.0 % Normal 43.0-75.0 [facility] Comment on above: Performed By: #### B MP #### [facility] [address] [place] [address] [address] Diamante Lacey Platelet mean volume (Bld) [Entitic vol] 10.4 fL Normal 9.5-13.5 [facility] Comment on above: Performed By: #### B MP #### [facility] [address] [place] [address] Dr. Diamante Lacey PLT 215 103/ul Normal 150-450 [facility] Comment on above: Performed By: #### B MP #### [facility] [address] [place] [address] Dr. Diamante Lacey RBC 4.62 106/ul Critically low 4.70-6.10 [facility] Comment on above: Performed By: #### B MP #### [facility] [address] [place] [address] Dr. Diamante Lacey WBC 7.9 103/ul Normal 4.0-11.0 [facility] Comment on above: Performed By: #### B MP #### [facility] [address] [place] [address] Dr. Diamante Lacey CREATININE URINEon 2 URINE CREAT 46.09 mg/dL Normal 20.00-300. 00 [facility] Comment on above: Performed By: #### B MP #### [facility] [address] [place] [address] Dr. Diamante Lacey MAGNESIUMon 06-06-2022 Magnesium [Mass/Vol] 2.2 mg/dL Normal 1.8-2.4 [facility] Comment on above: Performed By: #### B MP #### [facility] [address] [place] [address] Dr. Diamante Lacey PHOSPHORUSon 06-06-2022 Phosphate [Mass/Vol] 4.9 mg/dL Critically high 2.6-4.7 [facility] Comment on above: Performed By: #### B MP #### [facility] [address] [place] [address] Dr. Diamante Lacey PROF 14(COMP METB)on 022 Albumin [Mass/Vol] 3.9 g/dL Normal 3.4-5.0 [facility] Comment on above: Performed By: #### B MP #### [facility] [address] [place] [address] Dr. Diamante Lacey Albumin/Globulin [Mass ratio] 1.3 {ratio} Normal [facility] Comment on above: Performed By: #### B MP #### [facility] [address] [place] [address] Dr. Diamante Lacey ALP [Catalytic activity/Vol] 80 U/L Normal 46-116 [facility] Comment on above: Performed By: #### B MP #### [facility] [address] [place] [address] Dr. Diamante Lacey ALT [Catalytic activity/Vol] 32 U/L Normal 16-63 [facility] Comment on above: Performed By: #### B MP #### [facility] [address] [place] [address] Dr. Diamante Lacey Anion gap [Moles/Vol] 10.5 mmol/L Normal [facility] Comment on above: Performed By: #### B MP #### [facility] [address] [place] [address] Dr. Diamante Lacey AST [Catalytic activity/Vol] 8 U/L Critically low 15-37 [facility] Comment on above: Performed By: #### B MP #### [facility] [address] [place] [address] Dr. Diamante Lacey Bilirubin [Mass/Vol] 0.6 mg/dL Normal 0.2-1.0 [facility] Comment on above: Performed By: #### B MP #### [facility] [address] [place] [address] Dr. Diamante Lacey Calcium [Mass/Vol] 9.4 mg/dL Normal 8.5-10.1 [facility] Comment on above: Performed By: #### B MP #### [facility] [address] [place] [address] Dr. Diamante Lacey Chloride [Moles/Vol] 103 mmol/L Normal 98-107 [facility] Comment on above: Performed By: #### B MP #### [facility] [address] [place] [address] Dr. Diamante Lacey CO2 [Moles/Vol] 30.7 mmol/L Normal 21.0-32.0 [facility] Comment on above: Performed By: #### B MP #### [facility] [facility] [address] [place] [address] Dr. Diamante Lacey Creatinine [Mass/Vol] 1.72 mg/dL Critically high 0.70-1.30 [facility] Comment on above: Performed By: #### B MP #### [facility] [address] [place] [address] Dr. Diamante Lacey EGFR-AF BELIZEAN 48 mL/min/1.73m2 Critically low >=60 [facility] Comment on above: Performed By: #### B MP #### [facility] [address] [place] [address] Dr. Diamante Lacey EGFR-NON AF BELIZEAN 40 mL/min/1.73m2 Critically low >=60 [facility] Comment on above: Performed By: #### B MP #### [facility] [address] [place] [address] Dr. Diamante Lacey Globulin (S) [Mass/Vol] 3.1 g/dL Normal [facility] Comment on above: Performed By: #### B MP #### [facility] [address] [place] [address] Dr. Diamante Lacey Glucose [Mass/Vol] 137 mg/dL Critically high 74-106 [facility] Comment on above: Performed By: #### B MP #### [facility] [address] [address] [address] Diamante Lacey Potassium [Moles/Vol] 4.2 mmol/L Normal 3.5-5.1 [facility] Comment on above: Performed By: #### B MP #### [facility] [address] [place] [address] Dr. Diamante Lacey Protein [Mass/Vol] 7.0 g/dL Normal 6.4-8.2 [facility] Comment on above: Performed By: #### B MP #### [facility] [address] [place] [address] Dr. Diamante Lacey Sodium [Moles/Vol] 140 mmol/L Normal 136-145 [facility] Comment on above: Performed By: #### B MP #### [facility] [address] [place] [address] Dr. Diamante Lacey Urea nitrogen [Mass/Vol] 32.0 mg/dL Critically high 7.0-18.0 [facility] Comment on above: Performed By: #### B MP #### [facility] [address] [place] [address] Dr. Diamante Lacey Urea nitrogen/Creatinine [Mass ratio] 18.6 mg/mg Normal [facility] Comment on above: Performed By: #### B MP #### [facility] [address] [place] [address] Dr. Diamante Lacey PROTEIN RAND URINEon 022 UR PROT <6.0 Normal <=11.9 [facility] Comment on above: Performed By: #### B MP #### [facility] [address] [place] [address] Dr. Diamante Lacey UA RANDOM W/MICROSCOPICon BACTERIA NONE SEEN Normal NONE SEEN [facility] Comment on above: Performed By: #### B MP #### [facility] [address] [place] [address] Dr. Diamante Lacey Bilirubin Ql (U) Negative Normal NEGATIVE [facility] Comment on above: Performed By: #### B MP #### [facility] [address] [place] [address] Dr. Diamante Lacey CAST NONE SEEN Normal NONE SEEN [facility] Comment on above: Performed By: #### B MP #### [facility] [address] [place] [address] Dr. Diamante Lacey Clarity (U) CLEAR Normal CLEAR [facility] Comment on above: Performed By: #### B MP #### [facility] [address] [place] [address] Dr. Diamante Lacey Color (U) LT. YELLOW Normal YELLOW [facility] Comment on above: Performed By: #### B MP #### [facility] [address] [place] [address] Dr. Diamante Lacey Crystals LM Nom (Urine sed) NONE SEEN Normal NONE SEEN [facility] Comment on above: Performed By: #### B MP #### [facility] [address] [place] [address] Dr. Diamante Lacey Epithelial cells LM Ql (Urine sed) RARE Normal NONE SEEN /RARE [facility] Comment on above: Performed By: #### B MP #### [facility] [address] [place] [address] Dr. Diamante Lacey Glucose Ql (U) >1000 Abnormal NEGATIVE [facility] Comment on above: Performed By: #### B MP #### [facility] [address] [place] [address] Dr. Diamante Lacey Hemoglobin Ql (U) Negative Normal NEGATIVE [facility] Comment on above: Performed By: #### B MP #### [facility] [address] [place] [address] Dr. Diamante Lacey Ketones Ql (U) Negative Normal NEGATIVE [facility] Comment on above: Performed By: #### B MP #### [facility] [address] [place] [address] Dr. Diamante Lacey LEUKOCYTES Negative Normal NEGATIVE [facility] Comment on above: Performed By: #### B MP #### [facility] [address] [place] [address] Dr. Diamante Lacey MUCOUS NONE SEEN Normal NONE SEEN [facility] Comment on above: Performed By: #### B MP #### [facility] [address] [place] [address] Dr. Diamante Lacey Nitrite Ql (U) Negative Normal NEGATIVE [facility] Comment on above: Performed By: #### B MP #### [facility] [address] [place] [address] Dr. Diamante Lacey pH (U) 5.5 [pH] Normal 5-9 [facility] Comment on above: Performed By: #### B MP #### [facility] [address] [place] [address] Dr. Diamante Lacey RBC NONE SEEN Abnormal 0-2 [facility] Comment on above: Performed By: #### B MP #### [facility] [address] [place] [address] Dr. Diamante Lacey SPEC GRAVITY 1.020 Normal 1.005-<=1. 025 [facility] Comment on above: Performed By: #### B MP #### [facility] [address] [place] [address] Dr. Diamante Lacey UA PROTEIN Negative Normal NEGATIVE/ TRACE [facility] Comment on above: Performed By: #### B MP #### [facility] [address] [place] [address] Dr. Diamante Lacey Urobilinogen Qn (U) 0.2 {Iraida'U}/dL Normal 0.2 - 1. 0 [facility] Comment on above: Performed By: #### B MP #### [facility] [address] [place] [address] Dr. Diamante Lacey WBC NONE SEEN Normal NONE SEEN [facility] Comment on above: Performed By: #### B MP #### [facility] [address] [place] [address] Dr. Diamante Lacey PROF CHEM 8 (BAS METB)on Anion gap [Moles/Vol] 14.5 mmol/L Normal [facility] Comment on above: Performed By: #### B MP #### [facility] [address] [place] [address] Dr. Diamante Lacey Calcium [Mass/Vol] 9.3 mg/dL Normal 8.5-10.1 [facility] Comment on above: Performed By: #### B MP #### [facility] [address] [place] [address] Dr. Diamante Lacey Chloride [Moles/Vol] 103 mmol/L Normal 98-107 [facility] Comment on above: Performed By: #### B MP #### [facility] [address] [place] [address] Dr. Diamante Lacey CO2 [Moles/Vol] 28.0 mmol/L Normal 21.0-32.0 [facility] Comment on above: Performed By: #### B MP #### [facility] [address] [address] [address] Diamante Lacey Creatinine [Mass/Vol] 1.67 mg/dL Critically high 0.70-1.30 [facility] Comment on above: Performed By: #### B MP #### [facility] [address] [address] [address] Diamante Lacey EGFR-AF BELIZEAN 50 mL/min/1.73m2 Critically low >=60 [facility] Comment on above: Performed By: #### B MP #### [facility] [address] [address] [address] Dimaante Lacey EGFR-NON AF BELIZEAN 41 mL/min/1.73m2 Critically low >=60 [facility] Comment on above: Performed By: #### B MP #### [facility] [address] [address] [address] Diamante Lacey Glucose [Mass/Vol] 165 mg/dL Critically high 74-106 [facility] Comment on above: Performed By: #### B MP #### [facility] [address] [address] [address] Diamante Lacey Potassium [Moles/Vol] 4.5 mmol/L Normal 3.5-5.1 [facility] Comment on above: Performed By: #### B MP #### [facility] [address] [address] [address] Diamante Lacey Sodium [Moles/Vol] 141 mmol/L Normal 136-145 [facility] Comment on above: Performed By: #### B MP #### [facility] [address] [address] [address] Diamante Lacey Urea nitrogen [Mass/Vol] 39.0 mg/dL Critically high 7.0-18.0 [facility] Comment on above: Performed By: #### B MP #### [facility] [address] [address] [address] Diamante Lacey Urea nitrogen/Creatinine [Mass ratio] 23.4 mg/mg Normal [facility] Comment on above: Performed By: #### B MP #### [facility] [address] [address] [address] Diamante Lacey PROF CHEM 8 (BAS METB)on Anion gap [Moles/Vol] 13.7 mmol/L Normal [facility] Comment on above: Performed By: #### B MP #### [facility] [address] [place] [address] Dr. Diamante Lacey Calcium [Mass/Vol] 9.0 mg/dL Normal 8.5-10.1 [facility] Comment on above: Performed By: #### B MP #### [facility] [address] [place] [address] Dr. Diamante Lacey Chloride [Moles/Vol] 102 mmol/L Normal 98-107 [facility] Comment on above: Performed By: #### B MP #### [facility] [address] [place] [address] Dr. Diamante Lacey CO2 [Moles/Vol] 29.3 mmol/L Normal 21.0-32.0 [facility] Comment on above: Performed By: #### B MP #### [facility] [address] [place] [address] Dr. Diamante Lacey Creatinine [Mass/Vol] 1.66 mg/dL Critically high 0.70-1.30 [facility] Comment on above: Performed By: #### B MP #### [facility] [address] [place] [address] Dr. Diamante Lacey EGFR-AF BELIZEAN 50 mL/min/1.73m2 Critically low >=60 [facility] Comment on above: Performed By: #### B MP #### [facility] [address] [place] [address] Dr. Diamante Lacey EGFR-NON AF BELIZEAN 41 mL/min/1.73m2 Critically low >=60 [facility] Comment on above: Performed By: #### B MP #### [facility] [address] [address] [address] Diamante Lacey Glucose [Mass/Vol] 137 mg/dL Critically high 74-106 [facility] Comment on above: Performed By: #### B MP #### [facility] [address] [address] [address] Diamante Lacey Potassium [Moles/Vol] 4.0 mmol/L Normal 3.5-5.1 [facility] Comment on above: Performed By: #### B MP #### [facility] [address] [address] [address] Diamante Lacey Sodium [Moles/Vol] 141 mmol/L Normal 136-145 [facility] Comment on above: Performed By: #### B MP #### [facility] [address] [address] [address] Diamante Lacey Urea nitrogen [Mass/Vol] 38.0 mg/dL Critically high 7.0-18.0 [facility] Comment on above: Performed By: #### B MP #### [facility] [address] [address] [address] Diamante Lacey Urea nitrogen/Creatinine [Mass ratio] 22.9 mg/mg Normal [facility] Comment on above: Performed By: #### B MP #### [facility] [address] [address] [address] Diamante Lacey NM STRESS ONLY SINGLEon 08-0 NM STRESS ONLY SINGLE Patient: STEPAN FULLERVilma Exam Date: 02/16/2022 : 1955 Gender:M Ordering : DR SPENCER MAST M.D. Admission #: [id number] Family : DR JUDI WILSON M.D. Order #: [id number] CLICK HERE TO VIEW EXAM RADIOLOGY REPORT [...] MD on 03/24/2022 at 11:54 Normal [facility] CBC AUTO DIFFon 01-27-2022 BASO # 0.1 103/ul Normal 0.0-0.1 [facility] Comment on above: Performed By: #### B MP #### [facility] [address] [place] [address] Dr. Diamante Lacey Basophils/100 WBC (Bld) 0.6 % Normal 0.2-2.0 [facility] Comment on above: Performed By: #### B MP #### [facility] [address] [place] [address] Dr. Diamante Lacey EO # 0.2 103/ul Normal 0.0-0.7 [facility] Comment on above: Performed By: #### B MP #### [facility] [address] [place] [address] Dr. Diamante Lacey Eosinophils/100 WBC (Bld) 2.6 % Normal 0.9-7.0 [facility] Comment on above: Performed By: #### B MP #### [facility] [address] [place] [address] Dr. Diamante Lacey Erythrocyte distribution width (RBC) [Ratio] 14.6 % Normal 11.0-15.0 [facility] Comment on above: Performed By: #### B MP #### [facility] [address] [place] [address] Dr. Diamante Lacey Hematocrit (Bld) [Volume fraction] 39.1 % Critically low 42.0-54.0 [facility] Comment on above: Performed By: #### B MP #### [facility] [address] [place] [address] Dr. Diamante Lacey Hemoglobin (Bld) [Mass/Vol] 12.8 g/dL Critically low 14.0-18.0 [facility] Comment on above: Performed By: #### B MP #### [facility] [address] [place] [address] Dr. Diamante Lacey IG # 0.02 10e3/ul Normal 0.00-0.03 [facility] Comment on above: Performed By: #### B MP #### [facility] [address] [place] [address] Dr. Diamante Lacey IG % 0.2 % Normal 0.0-0.5 [facility] Comment on above: Performed By: #### B MP #### [facility] [address] [place] [address] Dr. Diamante Lacey LYMPH # 1.7 103/ul Normal 1.2-3.8 [facility] Comment on above: Performed By: #### B MP #### [facility] [address] [place] [address] Dr. Diamante Lacey Lymphocytes/100 WBC (Bld) 20.8 % Normal 20.5-60.0 [facility] Comment on above: Performed By: #### B MP #### [facility] [address] [place] [address] Dr. Diamante Lacey MANUAL DIFF REQ NO Normal [facility] Comment on above: Performed By: #### B MP #### [facility] [address] [place] [address] Dr. Diamante Lacey MCH (RBC) [Entitic mass] 30.0 pg Normal 25.9-34.0 [facility] Comment on above: Performed By: #### B MP #### [facility] [address] [place] [address] Dr. Diamante Lacey MCHC (RBC) [Mass/Vol] 32.7 g/dL Normal 29.9-35.2 [facility] Comment on above: Performed By: #### B MP #### [facility] [address] [place] [address] Dr. Diamante Lacey MCV (RBC) [Entitic vol] 91.6 fL Normal 80.0-94.0 [facility] Comment on above: Performed By: #### B MP #### [facility] [address] [address] [address] Diamante Lacey MONO # 0.8 103/ul Normal 0.3-0.8 [facility] Comment on above: Performed By: #### B MP #### [facility] [address] [address] [address] Diamante Lacey Monocytes/100 WBC (Bld) 9.4 % Normal 1.7-12.0 [facility] Comment on above: Performed By: #### B MP #### [facility] [address] [place] [address] Dr. Diamante Lacey NEUT # 5.5 103/ul Normal 1.4-6.5 [facility] Comment on above: Performed By: #### B MP #### [facility] [address] [place] [address] Dr. Diamante Lacey Neutrophils/100 WBC (Bld) 66.4 % Normal 43.0-75.0 [facility] Comment on above: Performed By: #### B MP #### [facility] [address] [place] [address] Dr. Diamante Lacey Platelet mean volume (Bld) [Entitic vol] 11.3 fL Normal 9.5-13.5 [facility] Comment on above: Performed By: #### B MP #### [facility] [address] [place] [address] Dr. Diamante Lacey PLT 196 103/ul Normal 150-450 [facility] Comment on above: Performed By: #### B MP #### [facility] [address] [address] [address] Diamante Lacey RBC 4.27 106/ul Critically low 4.70-6.10 [facility] Comment on above: Performed By: #### B MP #### [facility] [address] [place] [address] Dr. Diamante Lacey WBC 8.3 103/ul Normal 4.0-11.0 [facility] Comment on above: Performed By: #### B MP #### [facility] [address] [place] [address] Dr. Diamante Lacey LIPASEon 01-27-2022 Lipase [Catalytic activity/Vol] 227.0 U/L Normal 73.0-393.0 [facility] Comment on above: Performed By: #### B MP #### [facility] [address] [place] [address] Dr. Diamante Lacey MAGNESIUMon 01-27-2022 Magnesium [Mass/Vol] 1.7 mg/dL Critically low 1.8-2.4 [facility] Comment on above: Performed By: #### M G #### [facility] [address] [place] [address] Dr. Diamante Lacey PROF 14(COMP METB)on 022 Albumin [Mass/Vol] 3.6 g/dL Normal 3.4-5.0 [facility] Comment on above: Performed By: #### B MP #### [facility] [address] [place] [address] Dr. Diamante Lacey Albumin/Globulin [Mass ratio] 1.4 {ratio} Normal [facility] Comment on above: Performed By: #### B MP #### [facility] [address] [place] [address] Dr. Diamante Lacey ALP [Catalytic activity/Vol] 88 U/L Normal 46-116 [facility] Comment on above: Performed By: #### B MP #### [facility] [address] [place] [address] Dr. Diamante Lacey ALT [Catalytic activity/Vol] 30 U/L Normal 16-63 [facility] Comment on above: Performed By: #### B MP #### [facility] [address] [place] [address] Dr. Diamante Lacey Anion gap [Moles/Vol] 15.7 mmol/L Normal [facility] Comment on above: Performed By: #### B MP #### [facility] [address] [place] [address] Dr. Diamante Lacey AST [Catalytic activity/Vol] 13 U/L Critically low 15-37 [facility] Comment on above: Performed By: #### B MP #### [facility] [address] [address] [address] Diamante Lacey Bilirubin [Mass/Vol] 0.5 mg/dL Normal 0.2-1.0 [facility] Comment on above: Performed By: #### B MP #### [facility] [address] [address] [address] Diamante Lacey Calcium [Mass/Vol] 8.5 mg/dL Normal 8.5-10.1 [facility] Comment on above: Performed By: #### B MP #### [facility] [address] [address] [address] Diamante Lacey Chloride [Moles/Vol] 106 mmol/L Normal 98-107 [facility] Comment on above: Performed By: #### B MP #### [facility] [address] [address] [address] Diamante Lacey CO2 [Moles/Vol] 24.4 mmol/L Normal 21.0-32.0 [facility] Comment on above: Performed By: #### B MP #### [facility] [address] [address] [address] Diamante Lacey Creatinine [Mass/Vol] 1.41 mg/dL Critically high 0.70-1.30 [facility] Comment on above: Performed By: #### B MP #### [facility] [address] [address] [address] Diamante Lacey EGFR-AF BELIZEAN >60 Normal >=60 [facility] Comment on above: Performed By: #### B MP #### [facility] [address] [address] [address] Diamante Lacey EGFR-NON AF BELIZEAN 50 mL/min/1.73m2 Critically low >=60 [facility] Comment on above: Performed By: #### B MP #### [facility] [address] [address] [address] Diamante Lacey Globulin (S) [Mass/Vol] 2.5 g/dL Normal [facility] Comment on above: Performed By: #### B MP #### [facility] [address] [address] [address] Diamante Lacey Glucose [Mass/Vol] 103 mg/dL Normal 74-106 [facility] Comment on above: Performed By: #### B MP #### [facility] [address] [address] [address] Diamante Lacey Potassium [Moles/Vol] 4.1 mmol/L Normal 3.5-5.1 [facility] Comment on above: Performed By: #### B MP #### [facility] [address] [address] [address] Diamante Lacey Protein [Mass/Vol] 6.1 g/dL Critically low 6.4-8.2 [facility] Comment on above: Performed By: #### B MP #### [facility] [address] [address] [address] Diamante Lacey Sodium [Moles/Vol] 142 mmol/L Normal 136-145 [facility] Comment on above: Performed By: #### B MP #### [facility] [address] [address] [address] Diamante Lacey Urea nitrogen [Mass/Vol] 23.0 mg/dL Critically high 7.0-18.0 [facility] Comment on above: Performed By: #### B MP #### [facility] [address] [address] [address] Diamante Lacey Urea nitrogen/Creatinine [Mass ratio] 16.3 mg/mg Normal [facility] Comment on above: Performed By: #### B MP #### [facility] [address] [address] [address] Diamante Lacey TROPONIN, HIGH SENSITIVITYon 01-27-2022 HSTROP 15.5 pg/mL Normal 4.0-76.1 [facility] Comment on above: Result Comment: CUT- OFF POINTS HAVE BEEN ESTABLISHED BASED ON THE FOURTH UNIVERSAL DEFINITIONS OF MYOCARDIAL INFARCTION. THE UPPER REFERENCE LIMIT (URL) OF TROPONIN, DEFINED THE 99TH PERCENTILE OF cTnI DISTRIBUTION IN A REFERENCE POPULATION, HAS BEEN CONFIRMED THE DECISION THRESHOLD FOR TX DIAGNOSIS. Performed By: #### B MP #### [facility] [address] [place], [place] [address] Dr. Diamante Lacey HSTROP 13.8 pg/mL Normal 4.0-76.1 [facility] Comment on above: Result Comment: CUT- OFF POINTS HAVE BEEN ESTABLISHED BASED ON THE FOURTH UNIVERSAL DEFINITIONS OF MYOCARDIAL INFARCTION. THE UPPER REFERENCE LIMIT (URL) OF TROPONIN, DEFINED THE 99TH PERCENTILE OF cTnI DISTRIBUTION IN A REFERENCE POPULATION, HAS BEEN CONFIRMED THE DECISION THRESHOLD FOR TX DIAGNOSIS. Performed By: #### B MP #### [facility] [address] [place], [place] [address] Dr. Diamante Lacey XR CHEST 1 Von [...] ALBERTO RAE Date: 2022-01-27 19:00 Normal [facility] Office Visit (Cardiology)on 06-18-2021 Follow-up visit [...] negative for complaint. Vitals Vital Signs Recorded: [id number] 01:30PMRecorded: [id number] 01:28PM [id number], RUE, [id number], LUE, Sitting Aommymlyc93, RUE, Iugfjpu42, LUE, Sitting Heart Rate78, L Radial Height5 ft 10 in Xjjgbd485 lb BMI Makvtcpwcf81.72 kg/m2 BSA Calculated2.26 Physical Exam Constitutional: alert [...] No Panel Informationon 06-11 8.8\S\8.8 Normal 8.2-10.2 [facility] [address] DO Work Phone: Comment on above: PERFORMED BY:[address] [address] [address] [place], [place] [id number] MEDICAL DIRECTORHENOK YANEZ M.D. 27.0\S\27.0 Normal 22.0-30.0 [facility] [employer] [address] DO Work Phone: 103\S\103 Normal 95-114 [facility] [address] DO Work Phone: [phone] 4.4\S\4.4 Normal 3.5-5.1 [facility] 250 DO Work Phone: 138\S\138 Normal 136-146 [facility] 250 DO Work Phone: [phone] 53\S\53 Normal [facility] 250 DO Work Phone: Comment on above: GFR estimated refere nce range: According to KDOQI guidelines, <60 ml/min/1.73m2 is sufficient to diagnose a patient with chronic kidney disease. 44\S\44 Normal [facility] 250 DO Work Phone: 1.59\S\1.59 above high threshold 0.64-1.27 -[facility] Riana crawford 250 DO Work Phone: 25\S\25 above high threshold 9-23 [facility] Riana crawford 250 DO Work Phone: 143\S\143 above high threshold 70-100 [facility] Riana crawford 250 DO Work Phone: Comment on above: [...] Vital Signs Recorded: 28May2021 02:21PMRecorded: 28May2021 02:13PM [id number], LUE, Okqytun514, RUE, Sitting Vpzntxcyn73, LUE, Dlsfncl581, RUE, Sitting Heart Rate71, Apical Height5 ft 10 in [id number] lb BMI Gbitskiipe58.87 kg/m2 BSA Calculated2.27 Tobacco Useb) No Fall [...] S1 and (more content not included)... Normal [employer] Tobacco Screening.on 021 Fall risk assessment a) No falls within the last year [facility] y 250 DO Work Phone: Tobacco use status [facility] b) No [facility] y 250 DO Work Phone: Vital Signs Date Time Vital Sign Value Performing Clinician Facility 02-26-2025 11:35-0400 Body height 175.3 cm Zoila Mosqueda NP Work Phone: [facility] 02-26-2025 11:35-0400 Body mass index (BMI) [Ratio] 34.7 kg/m2 Zoila Mosqueda NP Work Phone: [facility] 02-26-2025 11:35-0400 Body weight 106.59 kg Zoila Riverovely AVID EDITOR Work Phone: [facility] 02-26-2025 11:35-0400 Diastolic blood pressure 82 mm[Hg] Zoila Bonita AVID EDITOR Work Phone: [facility] 02-26-2025 11:35-0400 Heart rate 88 /min Zoila Mosqueda AVID EDITOR Work Phone: [facility] 02-26-2025 11:35-0400 Respiratory rate 16 /min Zoila Mosqueda AVID EDITOR Work Phone: [facility] 02-26-2025 11:35-0400 SaO2% (BldA) [Mass fraction] 96 % Zoila Александр AVID EDITOR Work Phone: [facility] 02-26-2025 11:35-0400 Systolic blood pressure 182 mm[Hg] Zoila Александр AVID EDITOR Work Phone: [facility] 02-25-2025 14:21-0400 Diastolic blood pressure 131 mm[Hg] Spencer Mast MD Work Phone: [facility] 02-25-2025 14:21-0400 Heart rate 85 /min Spencer Mast MD Work Phone: [facility] 02-25-2025 14:21-0400 Systolic blood pressure 190 mm[Hg] Spencer Mast MD Work Phone: [facility] 02-25-2025 14:17-0400 Body height 177.8 cm Spencer Mast MD Work Phone: [facility] 02-25-2025 14:17-0400 Body mass index (BMI) [Ratio] 33.5 kg/m2 Spencer Mast MD Work Phone: [facility] 02-25-2025 14:17-0400 Body weight 105.91 kg Spencer Mast MD Work Phone: [facility] 02-25-2025 14:17-0400 Respiratory rate 16 /min Spencer Mast MD Work Phone: [facility] 02-25-2025 14:17-0400 SaO2% (BldA) [Mass fraction] 98 % Spencer Mast MD Work Phone: [facility] 12-04-2024 15:45-0400 Diastolic blood pressure 137 mm[Hg] Spencer Mast MD Work Phone: [facility] 12-04-2024 15:45-0400 Systolic blood pressure 187 mm[Hg] Spencer Mast MD Work Phone: [facility] 12-04-2024 15:35-0400 Body height 177.8 cm Spencer Mast MD Work Phone: [facility] 12-04-2024 15:35-0400 Body mass index (BMI) [Ratio] 36.6 kg/m2 Spencer Mast MD Work Phone: [facility] 12-04-2024 15:35-0400 Body weight 115.72 kg Spencer Mast MD Work Phone: [facility] 12-04-2024 15:35-0400 Heart rate 85 /min Spencer Mast MD Work Phone: [facility] 12-04-2024 15:35-0400 Respiratory rate 18 /min Spencer Mast MD Work Phone: [facility] 12-04-2024 15:35-0400 SaO2% (BldA) [Mass fraction] 99 % Spencer Mast MD Work Phone: [facility] 11-26-2024 09:04-0400 Body height 175.3 cm Zoila Mosqueda AVID EDITOR Work Phone: [facility] 11-26-2024 09:04-0400 Body mass index (BMI) [Ratio] 37.95 kg/m2 Zoila Mosqueda AVID EDITOR Work Phone: [facility] 11-26-2024 09:04-0400 Body weight 116.57 kg Zoila Mosqueda AVID EDITOR Work Phone: [facility] 11-26-2024 09:04-0400 Diastolic blood pressure 92 mm[Hg] Zoila Bonita AVID EDITOR Work Phone: [facility] 11-26-2024 09:04-0400 Heart rate 46 /min Zoila Bonita AVID EDITOR Work Phone: [facility] 11-26-2024 09:04-0400 Respiratory rate 17 /min Zoila Bonita AVID EDITOR Work Phone: [facility] 11-26-2024 09:04-0400 SaO2% (BldA) [Mass fraction] 99 % Zoila Bonita AVID EDITOR Work Phone: [facility] 11-26-2024 09:04-0400 Systolic blood pressure 168 mm[Hg] Zoila Bonita AVID EDITOR Work Phone: [facility] 08-14-2024 13:47-0500 Body height 175.26 cm Spencer Mast MD Work Phone: [facility] 08-14-2024 13:47-0500 Body mass index (BMI) [Ratio] 35.4 kg/m2 Spencer Mast MD Work Phone: [facility] 08-14-2024 13:47-0500 Body weight 108.86 kg Spencer Mast MD Work Phone: [facility] 08-01-2024 15:20-0500 Body height 175.3 cm Zoila Mosqueda AVID EDITOR Work Phone: [facility] 08-01-2024 15:20-0500 Body mass index (BMI) [Ratio] 36.27 kg/m2 Zoila Bonita AVID EDITOR Work Phone: [facility] 08-01-2024 15:20-0500 Body weight 111.4 kg Zoila Александр AVID EDITOR Work Phone: [facility] 08-01-2024 15:20-0500 Diastolic blood pressure 86 mm[Hg] Zoila Александр AVID EDITOR Work Phone: [facility] 08-01-2024 15:20-0500 Heart rate 105 /min Zoila Александр AVID EDITOR Work Phone: [facility] 08-01-2024 15:20-0500 Respiratory rate 17 /min Zoila Александр AVID EDITOR Work Phone: [facility] 08-01-2024 15:20-0500 SaO2% (BldA) [Mass fraction] 96 % Zoila Bonita AVID EDITOR Work Phone: [facility] 08-01-2024 15:20-0500 Systolic blood pressure 182 mm[Hg] Zoila Александр AVID EDITOR Work Phone: [facility] 06-20-2024 16:21-0500 Body height 175.3 cm Zoila Bonita AVID EDITOR Work Phone: [facility] 06-20-2024 16:21-0500 Body mass index (BMI) [Ratio] 38.22 kg/m2 Zoila Александр AVID EDITOR Work Phone: [facility] 06-20-2024 16:21-0500 Body weight 117.39 kg Zoila Bonita AVID EDITOR Work Phone: [facility] 06-20-2024 16:21-0500 Diastolic blood pressure 76 mm[Hg] Zoila Александр AVID EDITOR Work Phone: [facility] 06-20-2024 16:21-0500 Heart rate 67 /min Zoila Александр AVID EDITOR Work Phone: [facility] 06-20-2024 16:21-0500 Respiratory rate 17 /min Zoila Bonita AVID EDITOR Work Phone: [facility] 06-20-2024 16:21-0500 SaO2% (BldA) [Mass fraction] 98 % Zoila Bonita AVID EDITOR Work Phone: [facility] 06-20-2024 16:21-0500 Systolic blood pressure 138 mm[Hg] Zoila Bonita AVID EDITOR Work Phone: [facility] 05-02-2024 15:27-0400 Body height 175.3 cm Zoila Bonita AVID EDITOR Work Phone: [facility] 05-02-2024 15:27-0400 Body mass index (BMI) [Ratio] 36.48 kg/m2 Zoila Mosqueda AVID EDITOR Work Phone: [facility] 05-02-2024 15:27-0400 Body weight 112.04 kg Zoila Mosqueda AVID EDITOR Work Phone: [facility] 05-02-2024 15:27-0400 Diastolic blood pressure 92 mm[Hg] Zoila Mosqueda AVID EDITOR Work Phone: [facility] 05-02-2024 15:27-0400 Heart rate 72 /min Zoila Mosqueda AVID EDITOR Work Phone: [facility] 05-02-2024 15:27-0400 SaO2% (BldA) [Mass fraction] 95 % Zoila Mosqueda AVID EDITOR Work Phone: [facility] 05-02-2024 15:27-0400 Systolic blood pressure 140 mm[Hg] Zoila Mosqueda AVID EDITOR Work Phone: [facility] 10-30-2023 13:10-0400 Diastolic blood pressure 86 mm[Hg] MD Spencer Mast Work Phone: [facility] 10-30-2023 13:10-0400 Heart rate 62 /min MD Spencer Mast Work Phone: [facility] 10-30-2023 13:10-0400 Respiratory rate 16 /min MD Spencer Mast Work Phone: [facility] 10-30-2023 13:10-0400 SaO2% (BldA) [Mass fraction] 98 % MD Spencer Mast Work Phone: [facility] 10-30-2023 13:10-0400 Systolic blood pressure 140 mm[Hg] MD Spencer Mast Work Phone: [facility] 10-30-2023 12:40-0400 Inhaled oxygen flow rate 6 L/min MD Spencer Mast Work Phone: [facility] 10-30-2023 12:25-0400 Body height 175.26 cm MD Spencer Mast Work Phone: [facility] 10-30-2023 12:25-0400 Body mass index (BMI) [Ratio] 34.9 kg/m2 MD Spencer Mast Work Phone: [facility] 10-30-2023 12:25-0400 Body weight 107.5 kg MD Spencer Mast Work Phone: [facility] 10-30-2023 10:15-0400 Body temperature 97.7 [degF] MD Spencer Mast Work Phone: [facility] 08-31-2023 15:03-0500 Body height 175.26 cm MD Spencer Mast Work Phone: [facility] 08-31-2023 15:03-0500 Body mass index (BMI) [Ratio] 34.9 kg/m2 MD Spencer Mast Work Phone: [facility] 08-31-2023 15:03-0500 Body weight 107.5 kg MD Spencer Mast Work Phone: [facility] 08-29-2023 11:25-0500 Body mass index (BMI) [Ratio] 35.12 kg/m2 Zoila Mosqueda AVID EDITOR Work Phone: [facility] 08-29-2023 11:25-0500 Body weight 107.86 kg Zoila Mosqueda AVID EDITOR Work Phone: [facility] 08-29-2023 11:25-0500 Diastolic blood pressure 83 mm[Hg] Zoila Mosqueda AVID EDITOR Work Phone: [facility] 08-29-2023 11:25-0500 Heart rate 70 /min Zoila Mosqueda AVID EDITOR Work Phone: [facility] 08-29-2023 11:25-0500 Respiratory rate 14 /min Zoila Mosqueda AVID EDITOR Work Phone: [facility] 08-29-2023 11:25-0500 SaO2% (BldA) [Mass fraction] 95 % Zoila Mosqueda AVID EDITOR Work Phone: [facility] 08-29-2023 11:25-0500 Systolic blood pressure 140 mm[Hg] Zoila Mosqueda NP Work Phone: [facility] 08-02-2023 09:05-0500 Body height 175.26 cm Leidy Jamison Other [facility] 08-02-2023 09:05-0500 Body mass index (BMI) [Ratio] 35.47 kg/m2 Leidy Yaquelin Other [facility] [employer] Other 08-02-2023 09:05-0500 Body temperature 97.1 [degF] Leidy Jamison Other [facility] [employer] Other 08-02-2023 09:05-0500 Body weight 108.95 kg Leidy Jamison Other [facility] 08-02-2023 09:05-0500 Diastolic blood pressure 74 mm[Hg] Leidy Nerimond Other [facility] 08-02-2023 09:05-0500 Respiratory rate 18 /min Leidy Jamison Other [facility] [employer] Other 08-02-2023 09:05-0500 SaO2% (BldA) [Mass fraction] 89 % Leidy Nerimond Other [facility] [employer] Other 08-02-2023 09:05-0500 Systolic blood pressure 122 mm[Hg] Leidy Nerimond Other [facility] 06-18-2021 13:30-0500 Diastolic blood pressure 80 mm[Hg] Rugen M Hornell Work Phone: [facility] 250 DO Work Phone: 06-18-2021 13:30-0500 Systolic blood pressure 122 mm[Hg] Rugen M Pro Work Phone: [facility] 250 DO Work Phone: 06-18-2021 13:28-0500 Body height 177.8 cm Rugen M Hornell Work Phone: [facility] 250 DO Work Phone: 06-18-2021 13:28-0500 Body mass index (BMI) [Ratio] 34.72 kg/m2 Rugen M Hornell Work Phone: [facility] DO Work Phone: 06-18-2021 13:28-0500 Body surface area Derived from formula 2.26 m2 Rugen M Hornell Work Phone: [facility] 250 DO Work Phone: 06-18-2021 13:28-0500 Body weight 109.77 kg Rugen M Pro Work Phone: [facility] 250 DO Work Phone: 06-18-2021 13:28-0500 Diastolic blood pressure 72 mm[Hg] Rugen M Pro Work Phone: [facility] 250 DO Work Phone: 06-18-2021 13:28-0500 Heart rate 78 /min Rugen M Pro Work Phone: [facility] 250 DO Work Phone: 06-18-2021 13:28-0500 Systolic blood pressure 124 mm[Hg] Rugen M Pro Work Phone: [facility] DO Work Phone: 05-28-2021 14:21-0500 Diastolic blood pressure 98 mm[Hg] Rugen M Hornell Work Phone: [facility] DO Work Phone: 05-28-2021 14:21-0500 Systolic blood pressure 160 mm[Hg] Mikaelaen Deysi Hornell Work Phone: [facility] 250 DO Work Phone: 05-28-2021 14:13-0500 Body height 177.8 cm Spencer Jo Pro Work Phone: [facility] 250 DO Work Phone: 05-28-2021 14:13-0500 Body mass index (BMI) [Ratio] 34.87 kg/m2 Rugtelly Jo Pro Work Phone: [facility] 250 DO Work Phone: 05-28-2021 14:13-0500 Body surface area Derived from formula 2.27 m2 Spencer Jo Pro Work Phone: [facility] 250 DO Work Phone: 05-28-2021 14:13-0500 Body weight 110.22 kg Spencer Jo Hornell Work Phone: [facility] 250 DO Work Phone: 05-28-2021 14:13-0500 Diastolic blood pressure 108 mm[Hg] Mikaelaen Deysi Hornell Work Phone: [facility] DO Work Phone: 05-28-2021 14:13-0500 Heart rate 71 /min Spencer Jo Hornell Work Phone: [facility] DO Work Phone: 05-28-2021 14:13-0500 Systolic blood pressure 162 mm[Hg] Mikaelaen Deysi Hornell Work Phone: [facility] 250 DO Work Phone: Encounters Encounter Date Encounter Type Care Provider Facility Start: 04-09-2025 End: 04-09-2025 [facility] TAM[facility] Start: 04-08-2025 End: 04-08-2025 Clinisync Result Encounter Generic External Data Provider [facility] External Department Unsolicited Start: 04-08-2025 End: 04-08-2025 Clinisync Result Encounter Generic External Data Provider [facility] External Department Unsolicited Start: 03-07-2025 End: 03-14-2025 Clinisync Result Encounter Generic External Data Provider [facility] External Department Unsolicited Start: 03-07-2025 End: 03-14-2025 Clinisync Result Encounter Generic External Data Provider [facility] External Department Unsolicited Start: 03-04-2025 End: 03-04-2025 Clinisync Result Encounter Generic External Data Provider [facility] External Department Unsolicited Start: 03-04-2025 End: 03-04-2025 Clinisync Result Encounter Generic External Data Provider [facility] External Department Unsolicited Start: 02-26-2025 End: 02-26-2025 Bamboo flowsheet Zoila Mosqueda AVID EDITOR Work Phone: [facility] Start: 02-26-2025 End: 02-26-2025 Bamboo flowsheet Zoila Mosqueda AVID EDITOR Work Phone: [facility] Start: 02-26-2025 End: 02-26-2025 Office outpatient visit 15 minutes Zoila Mosqueda AVID EDITOR Work Phone: [facility] Comment on above: Type 2 diabetes trish itus with hyperglycemia, unspecified whether care home insulin use (HCC); Type 2 diabetes mellitus with stage 3 chronic kidney disease, with long-term current use of insulin, unspecified whether stage 3a or 3b CKD (HCC); Chronic kidney disease, stage 3b ([facility]-H[facility]) Start: 02-26-2025 End: 02-26-2025 ambulatory ZOILA MOSQUEDA Not Available Start: 02-25-2025 End: 02-25-2025 ambulatory Spencer Mast MD Work Phone: [facility] Work Phone: Start: 02-25-2025 End: 02-25-2025 Patient encounter procedure Sarah Anne MD -[facility] Work Phone: Start: 02-08-2025 End: [...] 02-07-2025 Non-patient / Non-visit Sarah Anne MD -[facility] Work Phone: Start: 01-06-2025 End: 01-06-2025 ambulatory [facility] Start: 12-18-2024 End: 12-19-2024 Clinisync Result Encounter [...] Unsolicited Start: 12-12-2024 End: 12-12-2024 ambulatory [facility] Start: 12-04-2024 End: 12-04-2024 Patient encounter procedure Sarah Anne MD -[facility] Work Phone: Start: 11-29-2024 [facility] Start: 11-29-2024 End: 11-29-2024 ambulatory JUTE BAG CLIPPER [facility] Start: 11-26-2024 End: 11-26-2024 Bamboo flowsheet Zoila Mosqueda AVID EDITOR Work Phone: [facility] Start: 11-26-2024 End: 11-26-2024 Bamboo flowsheet Zoila Mosqueda AVID EDITOR Work Phone: [facility] Start: 11-26-2024 End: 11-26-2024 Office outpatient visit 15 minutes Zoila Mosqueda AVID EDITOR Work Phone: [facility] Comment on above: Insomnia, unspecifie d type (Primary Dx); Type 2 diabetes mellitus with hyperglycemia, unspecified whether care home insulin use ([facility]); Flatulence Start: 11-26-2024 End: 11-26-2024 ambulatory ZOILA MOSQUEDA Not Available Start: 11-22-2024 End: 11-22-2024 Clinisync Result Encounter Generic External Data Provider [facility] External Department Unsolicited Start: 11-22-2024 End: 11-22-2024 Clinisync Result Encounter Generic External Data Provider [facility] External Department Unsolicited Start: 11-13-2024 End: 11-13-2024 ambulatory [facility] Start: 11-08-2024 End: 11-08-2024 Clinisync Result [...] Department Unsolicited Start: 10-04-2024 End: 10-04-2024 ambulatory [facility] Start: 09-12-2024 End: 09-12-2024 ambulatory Spencer Mast MD Work Phone: [facility] Work Phone: Start: 09-12-2024 End: 09-12-2024 Patient encounter procedure Spencer Mast MD Work Phone: [facility] Work Phone: Start: 09-05-2024 End: [...] Start: 08-19-2024 End: 08-19-2024 Bamboo flowsheet Oziel Arellano PT Work Phone: [facility] Start: 08-19-2024 End: 08-19-2024 Bamboo flowsheet Oziel Arellano PT Work Phone: [facility] Start: 08-15-2024 End: 08-16-2024 ambulatory Oziel Arellano PT Work Phone: [facility] Comment on above: Strain of right shou lder, initial encounter (Primary Dx) Start: 08-15-2024 End: 08-15-2024 Bamboo flowsheet Oziel Favio Eileen PT Work Phone: [facility] Start: 08-15-2024 End: 08-15-2024 Bamboo flowsheet Oziel Arellano PT Work Phone: [facility] Start: 08-14-2024 End: 08-14-2024 ambulatory Spencer Mast MD Work Phone: [facility] Work Phone: Start: 08-14-2024 End: 08-14-2024 Patient encounter procedure Spencer Mast MD Work Phone: [facility] Work Phone: Start: 08-12-2024 End: 08-13-2024 ambulatory Jethro Ware CEMENT SPRAYER HELPER [facility] Comment on above: Strain of right shou lder, initial encounter (Primary Dx) Start: 08-12-2024 End: 08-12-2024 Bamboo flowsheet Jethro Brink CEMENT SPRAYER HELPER [facility] Start: 08-12-2024 End: 08-12-2024 Bamboo flowsheet Jethro Brink CEMENT SPRAYER HELPER [facility] Start: 08-08-2024 End: 08-08-2024 ambulatory OZIEL Favio EILEEN Not Available Start: 08-08-2024 End: 08-08-2024 Bamboo flowsheet Oziel Arellano PT Work Phone: [facility] Start: 08-08-2024 End: 08-08-2024 Bamboo flowsheet Oziel Arellano PT Work Phone: [facility] Start: 08-08-2024 End: 08-08-2024 ambulatory Spencer Mast MD Work Phone: [facility] Work Phone: Comment on above: Strain of right shou lder, initial encounter (Primary Dx) Start: 08-08-2024 End: 08-08-2024 Patient encounter procedure Spencer Mast MD Work Phone: [facility] Work Phone: Start: 08-06-2024 End: [...] Office outpatient visit 25 minutes Zoila Mosqueda AVID EDITOR Work Phone: [facility] Comment on [...] 08-01-2024 End: 08-01-2024 Bamboo flowsheet Zoila Mosqueda AVID EDITOR Work Phone: [facility] Start: 08-01-2024 End: 08-01-2024 Bamboo flowsheet Zoila Mosqueda AVID EDITOR Work Phone: [facility] Start: 07-26-2024 End: 07-26-2024 ambulatory Spencer Mast MD Work Phone: [facility] Work Phone: Start: 07-26-2024 End: 07-26-2024 Patient encounter procedure Spencer Mast MD Work Phone: [facility] [address] Work Phone: Start: 07-25-2024 End: 07-25-2024 ambulatory Darryl Moncada CEMENT SPRAYER HELPER [facility] Comment on above: Strain of right shou lder, initial encounter (Primary Dx) Start: 07-23-2024 End: 07-23-2024 ambulatory Darryl Moncada CEMENT SPRAYER HELPER [facility] Comment on above: Strain of right shou lder, initial encounter (Primary Dx) Start: 07-23-2024 End: 07-23-2024 Bamboo flowsheet Darryl Moncada CEMENT SPRAYER HELPER [facility] Start: 07-23-2024 End: 07-23-2024 Bamboo flowsheet Darryl Moncada CEMENT SPRAYER HELPER [facility] Start: 07-22-2024 End: 07-22-2024 Patient encounter procedure Spencer Mast MD Work Phone: [facility] [address] [facility] Work Phone: Start: 07-22-2024 End: 07-22-2024 ambulatory Spencer Mast MD Work Phone: [facility] Work Phone: Start: 07-18-2024 End: [...] Start: 07-11-2024 End: 07-11-2024 Bamboo flowsheet Jethro Ware CEMENT SPRAYER HELPER [facility] Start: 07-11-2024 End: 07-11-2024 Bamboo flowsheet Jethro Narayananink CEMENT SPRAYER HELPER [facility] Start: 07-11-2024 End: 07-11-2024 ambulatory Jethro Ware CEMENT SPRAYER HELPER [facility] Comment on above: Strain of right shou lder, initial encounter (Primary Dx) Start: 07-09-2024 End: 07-09-2024 Bamboo flowsheet Oziel Favio Groverayo PT Work Phone: [facility] Start: 07-09-2024 End: 07-09-2024 Bamboo flowsheet Oziel Favio Eileen PT Work Phone: [facility] Start: 07-09-2024 End: 07-09-2024 ambulatory Oziel Savage Groverayo PT Work Phone: [facility] Comment on above: Strain of right shou lder, initial encounter (Primary Dx) Start: 07-05-2024 End: 07-08-2024 Telephone encounter Oziel Arellano PT Work Phone: [facility] Comment on above: PT thru C-[facility] Start: 07-04-2024 End: 07-04-2024 ambulatory Mikaelatelly Mast Facility:[facility] Start: 07-04-2024 End: 07-04-2024 Patient encounter procedure Spencer Mast MD Work Phone: [facility] [address] Work Phone: Start: 06-25-2024 End: 06-25-2024 Patient encounter procedure Spencer Mast MD Work Phone: [facility] [address] Work Phone: Start: 06-25-2024 End: 06-25-2024 ambulatory Rugtelly Watkinsa Facility:[facility] Start: 06-20-2024 End: 06-20-2024 Office outpatient visit 25 minutes Zoila Mosqueda AVID EDITOR Work Phone: [facility] Comment on above: Laryngitis (Primary Dx) Start: 06-20-2024 End: 06-20-2024 ambulatory ZOILA MOSQUEDA Not Available Start: 06-20-2024 End: 06-20-2024 Bamboo flowsheet Zoila Mosqueda AVID EDITOR Work Phone: [facility] Start: 06-20-2024 End: 06-20-2024 Bamboo flowsheet Zoila Mosqueda AVID EDITOR Work Phone: [facility] Start: 05-02-2024 End: 05-02-2024 Office outpatient visit 25 minutes Zoila Mosqueda AVID EDITOR Work Phone: [facility] Comment on above: Laryngitis, acute (P rimary Dx); Acute pain of right knee Start: 05-02-2024 End: 05-02-2024 ambulatory ZOILA MOSQUEDA Not Available Start: 03-13-2024 End: 03-13-2024 ambulatory [facility] Work Phone: Start: 03-13-2024 End: 03-13-2024 Patient encounter procedure [facility] Work Phone: Start: 03-06-2024 End: 03-06-2024 ambulatory [facility] Work Phone: Start: 03-06-2024 End: 03-06-2024 Patient encounter procedure [facility] Work Phone: Start: 10-30-2023 End: 10-30-2023 Admission to same day surgery center MD Spencer Mast Work Phone: [facility] [place] Start: 10-30-2023 End: 10-30-2023 ambulatory MD Spencer Mast Work Phone: [facility] Work Phone: Start: 08-31-2023 End: 08-31-2023 ambulatory MD Spencer Mast Work Phone: [facility] Work Phone: Start: 08-31-2023 End: 08-31-2023 Patient encounter procedure MD Spencer Mast Work Phone: [facility] Work Phone: Start: 08-31-2023 End: 08-31-2023 Patient encounter procedure MD Spencer Mast Work Phone: [facility] Start: 08-31-2023 End: 08-31-2023 ambulatory MD Spencer Mast Work Phone: [facility] Work Phone: Start: 08-29-2023 Chart abstracting Zoila pan AVID EDITOR Work Phone: [facility] Start: 08-29-2023 End: 08-29-2023 Office outpatient visit 25 minutes Zoila Mosqueda AVID EDITOR Work Phone: [facility] Comment on above: Bronchitis (Primary Dx); Left non-suppurative otitis media Start: 08-02-2023 (URG) Urgent Care Visit Leidy paniagua [facility] Start: 08-02-2023 End: 08-02-2023 ambulatory Leidy Jamison Other [facility] Other Start: 08-02-2023 Telephone encounter Leidy Jamison [facility] Start: 08-02-2023 End: 08-02-2023 Patient encounter procedure MD Spencer Mast Work Phone: [facility] [facility]- Start: 09-08-2022 End: 09-09-2022 ambulatory [...] outpatient vi sit 15 minutes Rugen M Hornell Work Phone: [facility] 250 DO Work Phone: Start: 06-16-2021 NURSEVST, Provider: KAREN MORRIS BEHAVIORAL ANALYST 1,[id number], Status: Pen, Time: 1:00 PM Rugen M Pro Work Phone: [facility] 250 DO Work Phone: Start: 06-14-2021 Chart Update Rugen M Pro Work Phone: [facility] 250 DO Work Phone: Start: 05-28-2021 Office consultation new/estab patient 60 min Rugen M Hornell Work Phone: [facility] DO Work Phone: Start: 05-28-2021 Patient encounter procedure Rugen M Pro Work Phone: [facility] DO Work Phone: Start: 08-30-2016 End: 08-31-2016 Ambulatory DEFAULT PHYSICIAN Facility:[facility] Procedures Date Procedure Procedure Detail Performing Clinician Start: 04-08-2025 ITP Generic Ex ternal Data Provider Start: 03-07-2025 ITP Generic Ex ternal Data Provider Start: 03-04-2025 ALL URINALYSIS Generic External Data Provider Start: 02-26-2025 Hemoglobin glycosyla yohana a1c Zoila Mosqueda NP Work Phone: Start: 02-08-2025 METANEPHRINES, FRAC, QN, 24-HR Generic External Data Provider Start: 02-07-2025 Cortisol total Spencer Ocampo MD Work Phone: Comment on above: Please Note: The ref erence interval and flagging for this test is for an AM collection. If this is a PM collection please use: Cortisol PM: 2.3-11.9Performed at: [facility] [address] [id number] Director: Dionicio Clements PhD, Phone: [phone] Start: 02-07-2025 HMHP CBC WITH PLATEL ET NO DIFFERENTIAL Generic External Data Provider Start: 12-18-2024 ITP Generic Ex ternal Data Provider Start: 12-13-2024 ITP Generic Ex ternal Data Provider Start: 11-26-2024 Hemoglobin glycosyla yohana a1c Zoila Mosqueda AVID EDITOR Work Phone: Start: 11-22-2024 ALL BASIC METABOLIC [...] Work Phone: Start: 11-03-2023 Colonoscopy Zoila pan AVID EDITOR Work Phone: Start: 10-30-2023 Colonoscopy MD Spencer Cuevas lda Work Phone: Start: 08-31-2023 Pelvis X-ray MD Spencer ureña Work Phone: Start: 08-31-2023 X-ray of both knees MD Spencer Mast Work Phone: Appendectomy Spencer Jo Hornell Work Phone: Coronary artery bypa ss graft Mikaelaen M Hornell Work Phone: Hernia repair Rugen M Hornell Work Phone: History of coronary artery bypass grafting S/P CABG (coronary artery bypass graft) Spencer M Hornell Work Phone: Lithotripsy Spencer M Hornell Work Phone: Operative procedure on knee Spencer Mast Work Phone: NEGATED: Highlighted row has not occurred! Total colonoscopy Spencer Mast Work Phone: Plan of Treatment Date Care Activity Detail Author Start: 11-02-2033 Screening for malign ant neoplasm of colon [facility] Start: 08-20-2026 Screening for malign ant neoplasm of colon [facility] Start: 08-28-2025 End: 08-28-2025 Patient encounter procedure 08/28/2025 1:00 PM EST Office Visit [facility] [address] [place] [address] Zoila Mosqueda, IBIS [address] [place] [address] [facility] Start: 06-16-2025 Influenza vaccination N [facility] Comment on above: Postponed from 03/17 (Other Medical Reasons) Postponed from 03/17 (Other Medical Reasons) Start: 05-29-2025 Hemoglobin A1c measurement Diabetes: Hemoglobin A1C [facility] Start: 03-17-2025 Influenza vaccination Influenza Vacc ine (#1) [facility] Start: 02-26-2025 Hemoglobin A1c measurement Diabetes: Hemoglobin A1C [facility] Start: 02-26-2025 End: 02-26-2025 Patient encounter procedure [facility] Comment on above: Arrived Start: 02-25-2025 Patient referral [facility] Work Phone: Start: 01-10-2025 Urine screening for protein Diabetes: Urine Protein Screening [facility] Start: 11-26-2024 End: 11-26-2024 Patient encounter procedure [facility] Comment on above: Arrived Start: 11-08-2024 Urine screening for protein Diabetes: Urine Protein Screening [facility] Start: 08-28-2024 End: 08-28-2024 ambulatory 08/28/2024 5:00 PM EST Treatment [facility] [address] [place] [address] Jethro Ware PTA [facility] Start: 08-26-2024 End: 08-26-2024 ambulatory 08/26/2024 4:30 PM EST Treatment [facility] [address] [place] [address] Oziel Arellano, PT [address] [place] [address] Arrived [facility] Comment on above: Arrived Start: 08-21-2024 End: 08-21-2024 ambulatory 08/21/2024 4:00 PM EST Treatment [facility] [address] [place] [address] Oziel Arellano, PT [address] [facility] [address] [place] [address] [facility] Start: 08-19-2024 End: 08-19-2024 [...] Visit [facility] [address] [place] [address] Zoila Mosqueda, AVID EDITOR [address] [facility] [address] [place] [address] Arrived [facility] Comment on above: Arrived Start: 07-25-2024 End: 07-25-2024 ambulatory 07/25/2024 2:30 PM EST Treatment [facility] [address] [place] [address] Darryl Moncada PTA [facility] Start: 07-23-2024 End: 07-23-2024 ambulatory [facility] Comment on above: Arrived Start: 07-18-2024 Glaucoma screening Diabetes: R etinopathy Screening [facility] Start: 07-18-2024 End: 07-18-2024 ambulatory [facility] Comment on above: Strain of right marichuyu lder, initial encounter (Primary Dx) Start: 07-15-2024 End: 07-15-2024 ambulatory 07/15/2024 8:30 AM EST Treatment [facility] [address] [place] [address] Petty Jimenez, CEMENT SPRAYER HELPER [facility] Start: 07-11-2024 End: 07-11-2024 ambulatory [facility] Comment on above: Strain of right shou lder, initial encounter (Primary Dx) Start: 07-09-2024 End: 07-09-2024 ambulatory 07/09/2024 8:30 AM EST Evaluation [facility] [address] [place] [address] Oziel Arellano, PT [address] [place] [address] [facility] Start: 06-20-2024 End: 06-20-2024 Patient encounter procedure 06/20/2024 4:30 PM EST Office Visit [facility] [address] [place] [address] Zoila Mosqueda, AVID EDITOR [address] [place] [address] Arrived [facility] Comment on above: [...] [address] [place] [address] Zoila Mosqueda NP [address] [place] [address] [facility] Start: 03-06-2024 Patient referral [facility] Work Phone: Start: 01-14-2024 Influenza vaccination Influenza Vacc ine (#1) [facility] Comment on above: Postponed from 03/17 (Other Patient Reasons) Start: 10-30-2023 [facility] Start: 10-04-2023 Hemoglobin A1c measurement Diabetes: Hemoglobin A1C [facility] Start: 09-04-2023 End: 09-04-2023 Patient encounter procedure 09/04/2023 2:30 PM EST Office Visit [facility] [address] [place] [address] Spencer Mast MD [address] [place] [address] [facility] Start: 08-29-2023 End: 08-29-2023 Patient encounter procedure 08/29/2023 11:30 AM EST Office Visit [facility] [address] [place] [address] Zoila Mosqueda NP [address] [place] [address] [facility] Start: 01-21-2022 Screening for malign ant neoplasm of colon [facility] Start: 12-29-2021 FUV, Provider: Juainto Peterson, Status: Pen, Time: 1:40 PM FUV, Provider: Juanito Peterson, Status: Pen, Time: 1:40 PM [facility] 250 DO Work Phone: Start: 08-25-2021 FUV, Provider: Juanito Peterson, Status: Pen, Time: 1:30 PM FUV, Provider: Juanito Peterson, Status: Pen, Time: 1:30 PM [facility] DO Work Phone: Start: 06-16-2021 NURSEVST, Provider: KAREN MORRIS BEHAVIORAL ANALYST 1,[id number], Status: Pen, Time: 1:00 PM NURSEVST, Provider: KAREN MORRIS BEHAVIORAL ANALYST 1,[id number], Status: Pen, Time: 1:00 PM [facility] 250 DO Work Phone: Start: 1972 Pneumococcal [...] Education Colonoscopy (D C) Colon Polypectomy (DC) [facility] Work Phone: Patient referral [facility] Work Phone: Renal function 1999 panel - Serum or Plasma [facility] Renal function 1999 panel - Serum or Plasma [facility] [place] Unspecified body region [facility] Immunizations Immunization Date Immunization Notes Care Provider Ousmane uribe 11-11-2020 Pfizer-BioNTech COVI D-19 Vacc 30 MCG/0.3ML Intramuscular Suspension Rugen M Hornell Work Phone: [facility] DO Work Phone: 10-21-2020 Pfizer-BioNTech COVI D-19 Vacc 30 MCG/0.3ML Intramuscular Suspension Rugen M Hornell Work Phone: [facility] DO Work Phone: Payers Date Payer Category Payer Medicare (Managed Care) [facility] MED[facility] [id number] 2024 Medicare [id number] 2024 Medicare [id number] 2024 Unknown [id number] 2024 Worker's Compensation [id number] 2024 Worker's Compensation 1.2.84 [id number] 2023 Self-pay [id number] 2017 Blue Cross Blue Shield 1.2.8 [id number]. [id number] 2017 Unknown 2017 Unknown [id number] 1959 Unknown [id number] 1953 Unknown [id number] 2.16.840.1.721055.3.579.2. 593 1953 Unknown [id number] 2.16.840.1.639816.3.579.2. 593 1953 Unknown [id number] 2.16.840.1.476882.3.579.2. 593 1953 Unknown [id number] 2.16.840.1.325325.3.579.2. 593 1953 Unknown [id number] 2.16.840.1.224176.3.579.2. 593 1953 Unknown [id number] 2.16.840.1.532919.3.579.2. 593 1953 Unknown [id number] 2.16.840.1.571250.3.579.2. 593 1953 Unknown [id number] 2.16.840.1.825014.3.579.2. 1259 1953 Unknown [id number] 2.16.840.1.279299.3.579.2. 1259 1953 Unknown [id number] 2.16.840.1.891103.3.579.2. 1259 1953 Unknown [id number] 2.16.840.1.721520.3.579.2. 1259 1953 Unknown [id number] 2.16.840.1.269498.3.579.2. 1259 1953 Unknown [id number] 2.16.840.1.906326.3.579.2. 1259 1953 Unknown [id number] 2.16.840.1.941944.3.579.2. 1259 1953 Unknown [id number] 2.16.840.1.792298.3.579.2. 1259 1953 Unknown [id number] 2.16.840.1.260309.3.579.2. 1259 1953 Unknown [id number] 2.16.840.1.055116.3.579.2. 1259 1953 Unknown [id number] 2.16.840.1.558300.3.579.2. 1259 1953 Unknown [id number] 2.16.840.1.579545.3.579.2. 1259 1953 Unknown [id number] 2.16.840.1.135050.3.579.2. 1258 1953 Unknown [id number] 2.16.840.1.001990.3.579.2. 1258 1953 Unknown [id number] 2.16.840.1.243011.3.579.2. 1258 1953 Unknown [id number] 2.16.840.1.684146.3.579.2. 1258 1953 Unknown [id number] 2.16.840.1.255174.3.579.2. 1258 1953 Unknown [id number] 2.16.840.1.738841.3.579.2. 1258 1953 Unknown [id number] 2.16.840.1.363128.3.579.2. 1258 1953 Unknown [id number] 2.16.840.1.824976.3.579.2. 1258 1953 Unknown [id number] 2.16.840.1.481935.3.579.2. 1258 1953 Unknown [id number] 2.16.840.1.099493.3.579.2. 1258 1953 Unknown [id number] 2.16.840.1.584384.3.579.2. 1258 1953 Unknown [id number] 2.16.840.1.082006.3.579.2. 1258 1953 Unknown [id number] 2.16.840.1.939215.3.579.2. 1258 1953 Unknown [id number] 2.16.840.1.100613.3.579.2. 1258 1953 Unknown [id number] 2.16.840.1.602733.3.579.2. 1259 1953 Unknown [id number] 2.16.840.1.731060.3.579.2. 1259 1953 Unknown [id number] 2.16.840.1.108144.3.579.2. 1259 1953 Unknown [id number] 2.16.840.1.442038.3.579.2. 1259 Unknown [facility] [id number] Unknown [id number] 2.16.840.1.889154.3.579.2. 531 Unknown [id number] 2.16.840.1.482105.3.579.2. 531 Unknown [id number] 2.16.840.1.398208.3.579.2. 531 Unknown [id number] 2.16.840.1.214814.3.579.2. 531 Unknown [id number] 2.16.840.1.147127.3.579.2. 531 Unknown [id number] 2.16.840.1.043486.3.579.2. 531 Social History Date Type Detail Facility Start: 08-07-2023 End: 02-26-2025 No illicit drug use No illicit drug use [place] [address] DO Work Phone: Comment on above: Quit 43 years ago; Start: 08-07-2023 End: 02-26-2025 Sex Assigned At [facility] [employer] Other Start: 02-14-2023 Tobacco smoking status NHIS Never smoked tobacco [facility] Start: 02-14-2023 Tobacco use and exposure Smokeless tobacco non-user [facility] Start: 08-07-2023 End: 02-26-2025 Alcohol intake Lifetime non-drinker (finding) [facility] Start: 1955 Sex Assigned At Not on file [facility] Start: 08-02-2023 End: 02-25-2025 Tobacco smoking status NHIS Ex-smoker (finding) [facility] Start: 1955 Sex Assigned At Male [facility] Start: 07-23-2024 End: 09-12-2024 Sex Male (finding) [facility] Goals Date Patient Goal Desired Activity /State Functional Status Date Assessment Result Facility 02-26-2025 Patient Health Quest ionnaire 2 item (PHQ-2) [Reported] [facility] 11-26-2024 Patient Health Quest ionnaire 2 item (PHQ-2) [Reported] [facility] Clinical Notes 05-27-2021 to 02-26-2025 Zoila Mosqueda [...] being taken. He does not see a mail clerks supervisor.Eye exam is not current. 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 PFA using Farapulse Angely Munoz MD, ScM, MSc Cardiac Data Steward Email: [email or web address] 01-06-2025 Note Cardiac Electrophysi ology Consultation Reason for Consult: Atrial fibrillation, prior electrical cardioversion Referring Retail Merchandising Coordinator/PCP: No ref. provider found HPI: Lisa is [...] syncope/presyncope. Electrophysiology History: Early persistent atrial fibrillation, [id number] score of 5 based on age, hypertension, [...] Value Ventricular Rate 62 Atrial Rate 62 AK Interval 168 QRS DURATION 92 QT Interval 476 QTC CALCULATION(BAZETT) 483 P Shafter 74 R-Shafter 21 T Wave Shafter -15 Impression Sinus rhythm with occasional Premature ventricular complexes Prolonged QT Abnormal ECG Compared to tracing of 29-NOV-2024 09:47 Sinus rhythm has replaced Atrial fibrillation Confirmed by Yvonne GRANGER, L.S. (2) on 11/29/2024 11:34:20 AM I personally reviewed this EKG and assessed the findings myself Transesophageal echo (CADEN) Result Date: 11/29/2024 1 [facility] Station [address] [place] [address] [phone] (fax) Transesophageal Echocardiogram-[facility] Name: LISA FULELR Study Date: 11/29/2024 10:13 AM B/P: 164 mmHg/122 mmHg HR: Date of : 1955 Location: [facility] Height: 70 in. Age: [...] Location: A CADEN was performed in the Customer Relations Coordinator without complications Anesthesia Pharyngeal anesthesia with viscous [...] is normal si (more content not included)... [facility] 12-12-2024 Note [facility] Cardiology Clinic Note Chief Complaint: Patient [...] saphenous vein fro (more content not included)... [facility] 12-04-2024 Evaluation note Diagnosis Onset Date Resolution Diabetic nephropathy associated with type 2 diabetes mellitus acute December 04, 2024 3:34pm Hypertensive nephropathy acute December 04, 2024 3:34pm Stage 3b chronic kidney disease acute December 04, 2024 3:34pm Anemia of renal disease acute A ug2024 2:13pm Diabetic nephropathy associated with type 2 diabetes mellitus acute February 25, 2 025 2:13pm Hyperaldosteronism acute February 25, 2025 2:13pm Hypertensive nephropathy acute February 25, 2025 2:13pm Stage 3b chronic kidney disease acute February 25 2:13pm [facility] Work Phone: 1(597) 966-277605-16-2025 NotePatient: Lisa Fuller Procedure Information Date/Time: 11/29/24 1035 Procedure: Cardioversion - PC APPROVED Location: [facility] NUCLEAR OPERATOR HOLDING ROOM / [facility] (Cath) Providers: Musa Menjivar MD [...] who consented to blood products. Additional Equipment [facility] [id number] History of Present illness Narrative* Zoila Mosqueda, AVID EDITOR - 11/26/2024 9:00 AM EDT Images from [...] 2 diabetes mellitus with hyperglycemia, unspecified whether care home insulin use ([facility]) - POCT Glycated hemoglobin, total A1C [...] on file. documented in this encounterMadison Medical CenterLtuprbqbsy26-63-8367 NoteSUBJECTIVE Reason for Visit: Lisa Fuller is a 69 y.o. year old male patient being seen for 3 week follow-up visit. HPI: Lisa Fuller is a 69 y.o. year old male with significant medical history of CAD status post CABG 2015, hypertension, CKD ( initially seen in [address] Dworkin), CELESTINA, obesity, DM, and palpitations. In his previous visit in February 2024, he was recommended to follow-up with his spare fixer, the patient had stated his PCP had [...] encouraged him to reestablish care with his spare fixer. He otherwise denies chest pain, palpitations, lightheadedness, [...] and soft. Musculoskeletal: Inspect (more content not included)...[facility]03-21-2025 NoteSUBJECTIVE Reason for Visit: Lisa Fuller Sr. is a 69 y.o. year old male patient being seen for follow-up visit. HPI: Lisa uFller Sr. is a 69 y.o. year old male with past medical history of CAD status post CABG, hypertension, CKD, CELESTINA, obesity, and palpitations. In his previous visit in February 2024, he was recommended to follow-up with his spare fixer, the patient had stated his PCP had [...] encouraged him to reestablish care with his spare fixer. He otherwise denies chest pain, palpitations, lightheadedness, [...] Every evening lisinopril 4 (more content not included)...[facility] 09-16-2024 Telephone encounter Note* Telephone Encounter - Abeba Garcia - 09/16/2024 11:13 AM EST 4 attempts w/ no contact; unable to lm. [facility] [id number] Miscellaneous Notes* Telephone Encounter - Abeba Garcia [...] sentin for more auth. documented in this encounterNONortheast Regional Medical CenterSqyetawrrn32-71-3456 Telephone encounter Note* Telephone Encounter - Abeba Garcia - 09/10/2024 4:09 PM EST 3 attempts unable to contact. [facility] [id number] Telephone encounter Note* Telephone Encounter - Abeba Garcia - 09/05/2024 9:48 AM EST Tried to contact to note receiving ext of C-9 for the 1 visit to = 12 PT. I called and confirmed the ext date was for 1 remaining PT; I was told yes, and when that is used another request can be sentin for more auth. [facility] [id number] History of Present illness Narrative* Oziel Arellano, PT - 08/26/2024 4:30 PM EST [...] Difficulty sleeping at night. No injection. Work: [employer] (still working but on light duty). Precautions: [...] to be instructed in home exercise program. Scheduling Clerk Goals: To be met in 10 weeks [...] below. Date: documented in this encounterMadison Medical CenterVguvqdpplo48-23-2164 History of Present illness Narrative* Oziel Arellano, [...] to be instructed in home exercise program. Scheduling Clerk Goals: To be met in 10 weeks [...] below. Date: documented in this encounterMadison Medical CenterTiljjydgvx41-71-2027 History of Present illness Narrative* Oziel Arellano, [...] Difficulty sleeping at night. No injection. Work: [employer] (still working but on light duty). Precautions: [...] to be instructed in home exercise program. Care Home Goals: To be met in 10 weeks [...] below. Date: documented in this encounterMadison Medical CenterCcmpobfslv55-82-8867 History of Present illness Narrative* Oziel Arellano, [...] Difficulty sleeping at night. No injection. Work: [employer] (still working but on light duty). Precautions: [...] to be instructed in home exercise program. Scheduling Clerk Goals: To be met in 10 weeks [...] below. Date: documented in this encounterMadison Medical CenterVuldzzzahs52-72-9380 Evaluation note* Diagnosis Onset Date Resolution Status Admit Date Strain of unspecified muscle , fascia and tendon at shoulder and upper arm l acute August 08 9:47am Superior glenoid labrum lesi on of right shoulder, initial encounter acute August 08 9:47am [facility] Work Phone: 1(182) 731-871601-23-2025 Evaluation note* Diagnosis Onset Date Resolution Status [...] ght knee acute September 12 025 8:15am [facility] Work Phone: 1(634) 385-251201-21-2025 History of Present illness Narrative* Oziel Arellano, [...] Difficulty sleeping at night. No injection. Work: [employer] (still working but on light duty). Precautions: [...] to be instructed in home exercise program. Care Home Goals: To be met in 10 weeks [...] below. Date: documented in this encounterMadison Medical CenterUtvszopvwy26-49-3120 History of Present illness Narrative* Zoila Mosqueda, IBIS - 08/01/2024 3:30 PM EST Images [...] on file. documented in this encounterMadison Medical CenterSxlxivpprb48-27-7810 History of Present illness Narrative* Leidy Jacome, [...] Difficulty sleeping at night. No injection. Work: [employer] (still working but on light duty). Precautions: [...] to be instructed in home exercise program. Care Home Goals: To be met in 10 weeks [...] below. Date: documented in this encounterMadison Medical CenterQujurquyyz00-94-9757 History of Present illness Narrative* Oziel Arellano, [...] to be instructed in home exercise program. Scheduling Clerk Goals: To be met in 10 weeks [...] below. Date: documented in this encounterMadison Medical CenterNdzxbeckot01-82-2635 Telephone encounter Note* Telephone Encounter - Abeba Garcia - 07/08/2024 11:45 AM EST Scheduled him out to 07/18/24 w/ PT. [facility] CenterVuekgfocjg42-79-5044 Miscellaneous Notes* Telephone Encounter - Abeba Garcia - 07/08/2024 11:45 AM EST Scheduled him out to 07/18/24 w/ PT. * Telephone Encounter - Abeba Garcia - 07/05/2024 1:12 PM EST Tried to contact to set up PT, going thru [facility], w/ visits dated out to 08/06/24. There was no answer and voicemail was full. documented in this encounterMadison Medical CenterEsmtfsghnl11-80-5659 Telephone encounter Note* Telephone Encounter - Abeba Garcia - 07/05/2024 1:12 PM EST Tried to contact to set up PT, going thru [facility], w/ 12 visits dated out to 08/06/24. There was no answer and voicemail was full. [facility] [id number] History of Present illness Narrative* Zoila Mosqueda, AVID EDITOR - 06/20/2024 4:30 PM EST Images from [...] on file. documented in this encounterMadison Medical CenterWgfzviwvvk20-05-0918 History of Present illness Narrative* Zoila Mosqueda [...] on file. documented in this encounterMadison Medical CenterEfnjfrimtj26-32-6689 History of Present illness Narrative* Zoila Mosqueda NP - 08/29/2023 11:30 AM EST Subjective [...] of rest. documented in this encounterMadison Medical CenterZjxfzmofdp49-44-7585 Evaluation note* Encounter Date Diagnosis Assessment Notes Treatment Notes Treatment Clinical Notes Jul, Contact with and (suspected) exposure to covid-19 (ICD-10 - Z20.822) Jul, Influenza A (ICD-10 - J10.1) Patient left the urgent care prior to receiving the results of his PCR COVID, influenza, RSV testing. He was not seen by the provider. Will attempt to notify patient of his results. [employer] Other 12-03-2021 History of Present illness NarrativePatient [...] exercise and weight loss were reviewed with him.-[facility] 250 DO Work Phone: 1(595) 217-145311-11-2021 History of Present illness Narrative* Patient is [...] he will do the best he can. -[facility] 250 DO Work Phone: Evaluation noteNo [employer] [employer] Other Evaluation note* Diagnosis Bronchitis- Primary Bronchitis, not specified as acute or chronic Left non-suppurative otitis media Nonsuppurative otitis media, not specified as acute or chronic documented in this encounter [facility] Diagnosis Onset Date Resolution Status Bilateral primary osteoarthritis of knee acute Knee pain, left acute Knee pain, right acute [facility] Work Phone: Evaluation note* Diagnosis Onset Date Resolution Status Bilateral primary osteoarthritis of knee acute [facility] Work Phone: Evaluation note* Diagnosis Onset Date Resolution Status Bilateral primary osteoarthritis of knee acute Bilateral primary osteoarthritis of knee acute Chronic pain acute Knee pain, left acute Knee pain, right acute [facility] Work Phone: Evaluation note* Diagnosis Primary hypertension (CMS/HCC)- Primary Unspecified essential hypertension 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/HCC) Influenza Influenza with other respiratory manifestations [...] hyperglycemia, without long-term current use of insulin ([facility]) Pulmonary hypertension, unspecified (I27.20) Laryngitis, acute- Primary Acute laryngitis, without mention of obstruction Acute pain of right knee documented in this encounter [facility] HealthcareEvaluation note* Diagnosis Primary hypertension (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)- Primary Abnormal glucose tolerance test Impaired glucose tolerance test Benign essential hypertension ([facility]) Essential hypertension, benign Type 2 diabetes mellitus with microalbuminuria, without long-term current use of insulin ([facility]) Primary hypertension ([facility]) Unspecified essential hypertension Type 2 diabetes mellitus with hyperglycemia, without long-term current use of insulin ([facility]) Pulmonary hypertension, unspecified (I27.20) Laryngitis- Primary Acute laryngitis, without mention of obstruction documented in this encounter [facility] HealthcareEvaluation note* Diagnosis Primary hypertension (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)- Primary Abnormal glucose tolerance test Impaired glucose tolerance test Benign essential hypertension ([facility]) Essential hypertension, benign Type 2 diabetes mellitus with microalbuminuria, without long-term current use of insulin ([facility]) Primary hypertension ([facility]) Unspecified essential hypertension Type 2 diabetes mellitus with hyperglycemia, without long-term current use of insulin ([facility]) Pulmonary hypertension, unspecified (I27.20) Strain of right shoulder, initial encounter- Primary documented in this encounter [facility] HealthcareEvaluation note* Diagnosis Primary hypertension (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/HCC)- Primary Abnormal glucose tolerance test Impaired glucose tolerance test Benign essential hypertension ([facility]/HCC) Essential hypertension, benign Type 2 diabetes mellitus with microalbuminuria, without long-term current use of insulin ([facility]) Primary hypertension (CMS/HCC) Unspecified essential hypertension Type [...] current use of insulin (CMS/HCC) Primary hypertension ([facility]/HCC) Unspecified essential hypertension Type 2 diabetes [...] current use of insulin (CMS/HCC) Primary hypertension ([facility]/HCC) Unspecified essential hypertension Type 2 diabetes mellitus with hyperglycemia, without long-term current use of insulin ([facility]/HCC) Pulmonary hypertension, unspecified (I27.20) Strain of right shoulder, initial encounter- Primary documented in this encounter [facility] HealthcareEvaluation noteNo assessment information [facility] Work Phone: Evaluation note* Diagnosis Primary hypertension (CMS/HCC)- Primary Unspecified essential hypertension 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/HCC) Influenza Influenza with other respiratory manifestations 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) (CMS/HCC)- Primary Abnormal glucose tolerance test Impaired glucose tolerance test Benign essential hypertension (CMS/HCC) Essential hypertension, benign Type 2 diabetes mellitus with microalbuminuria, without long-term current use of insulin ([facility]/HCC) Primary hypertension ([facility]) Unspecified essential hypertension Type 2 diabetes mellitus with hyperglycemia, without long-term current use of insulin ([facility]) Pulmonary hypertension, unspecified (I27.20) Strain of right shoulder, initial encounter- Primary documented in this encounter [facility] note* Diagnosis Primary hypertension (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/HCC)- Primary Abnormal glucose tolerance test Impaired glucose tolerance test Benign essential hypertension ([facility]) Essential hypertension, benign Type 2 diabetes mellitus with microalbuminuria, without long-term current use of insulin ([facility]) Primary hypertension ([facility]) Unspecified essential hypertension Type 2 diabetes mellitus with hyperglycemia, without long-term current use of insulin ([facility]) Pulmonary hypertension, unspecified (I27.20) Laryngitis- Primary Acute laryngitis, without mention of obstruction Type 2 diabetes mellitus with hyperglycemia ([facility]) Type 2 diabetes mellitus with diabetic chronic kidney disease ([facility]) Chronic kidney disease, stage 3a (HCC) ([facility]) Morbid (severe) obesity due to excess calories ([facility]) Essential (primary) hypertension ([facility]) Unspecified essential hypertension Body mass index (BMI) 38.0-38.9, adult Pulmonary hypertension, unspecified ([facility]) documented in this encounter [facility] HealthcareEvaluation note* Diagnosis Primary hypertension (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)- Primary Abnormal glucose tolerance test Impaired glucose tolerance test Benign essential hypertension ([facility]) Essential hypertension, benign Type 2 diabetes mellitus with microalbuminuria, without long-term current use of insulin ([facility]) Primary hypertension ([facility]) Unspecified essential hypertension Type 2 diabetes mellitus with hyperglycemia, without long-term current use of insulin ([facility]) Pulmonary hypertension, unspecified (I27.20) Strain of right shoulder, initial encounter- Primary [facility] encounter [facility]* Diagnosis Onset Date Resolution Status Admit Date Strain of unspecified muscle , fascia and tendon at shoulder and upper arm l acute August 08 9:47am Superior glenoid labrum lesi on of right shoulder, initial encounter acute August 08 9:47am [facility] Work Phone: Evaluation note* Diagnosis Primary hypertension (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/HCC) Influenza Influenza with other respiratory manifestations 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/HCC)- Primary Abnormal glucose tolerance test Impaired glucose tolerance test Benign essential hypertension ([facility]/HCC) Essential hypertension, benign Type 2 diabetes mellitus with microalbuminuria, without long-term current use of insulin ([facility]/HCC) Primary hypertension ([facility]/HCC) Unspecified essential hypertension Type 2 diabetes mellitus with hyperglycemia, without long-term current use of insulin ([facility]) Pulmonary hypertension, unspecified (I27.20) Strain of right shoulder, initial encounter- Primary documented in this encounter [facility] HealthcareEvaluation note* Diagnosis Primary hypertension (CMS/HCC)- Primary Unspecified essential hypertension 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/HCC) Influenza Influenza with other respiratory manifestations 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/HCC)- Primary Abnormal glucose tolerance test Impaired glucose tolerance test Benign essential hypertension ([facility]/HCC) Essential hypertension, benign Type 2 diabetes mellitus with microalbuminuria, without long-term current use of insulin ([facility]/HCC) Primary hypertension ([facility]/HCC) Unspecified essential hypertension Type 2 diabetes mellitus with hyperglycemia, without long-term current use of insulin ([facility]) Pulmonary hypertension, unspecified (I27.20) Insomnia, unspecified type- Primary Type 2 diabetes mellitus with hyperglycemia, unspecified whether care home insulin use ([facility]) Flatulence Flatulence, eructation, and gas pain documented in this encounter [facility] HealthcareEvaluation note* Diagnosis Primary hypertension- Primary Unspecified [...] without long-term current use of insulin (HCC) Primary hypertension Unspecified essential hypertension Type 2 diabetes mellitus with hyperglycemia, without long-term current use of insulin (HCC) Pulmonary hypertension, unspecified (I27.20) Type 2 diabetes mellitus with hyperglycemia, unspecified whether care home insulin use (HCC) Type 2 diabetes mellitus with stage 3 chronic kidney disease, with long-term current use of insulin, unspecified whether stage 3a or 3b CKD (HCC) Chronic kidney disease, stage 3b (CMS-HCC) documented in this encounter [facility] HealthcareHistory general Narrative - Reported* Type Description Date Medical History HTN Medical History Arthritis Medical History Diabetes Medical History Hx of [place] Medical History Hyperlipidemia Medical History Coronary artery disease Surgical History Appendectomy Surgical History Arthroscopy, bilateral knees Surgical History Hernia Surgical History Left hand Surgical History heart bypass graft x 6 Surgical History cataract removal Hospitalization History See above [facility] Discharge instructionsAmbulatory Orders* Referral to Pain Management Time Frame: 03/06/24, Location: [facility] Work Phone: Reason for visit Narrative* Rehabilitation - Outpatient (Routine) - Authorized Specialty Diagnoses / Procedures Referred By Chivo savage Referred To Contact Physical Therapy Diagnoses Strain of unspecified muscle, fascia and tendon at shoulder and upper arm level, right arm, initial encounter Procedures [place] PHYSICAL THERAPY EVALUATION LOW COMPLEX 20 MINS [place] OFFICE/OUTPATIENT [facility] Leidy Fu MD [address] [place] [id number] Phone: tel: fax: [facility] CI PT [address] [address] Phone: tel: fax: Referral ID Status Reason Start Date Expiration Date V isits Requested Visits Authorized [id number] Authorized 06/25/2024 08/06/2024 12 [facility] Rehabilitation - Outpatient (Routine) - Authorized Specialty Diagnoses / Procedures Referred By Chivo savage Referred To Contact Physical Therapy Diagnoses Strain of unspecified muscle, fascia and tendon at shoulder and upper arm level, right arm, initial encounter Procedures AK PHYSICAL THERAPY EVALUATION LOW COMPLEX 20 MINS [place] OFFICE/OUTPATIENT [facility] Leidy Fu MD [address] [place] [address] Phone: tel: fax: [facility] [address] [facility] [address] [place] [address] Phone: tel: fax: Referral ID Status Reason Start Date Expiration Date V isits Requested Visits Authorized [id number] Authorized 06/25/2024 12 12 [facility] Narrative* Rehabilitation - Outpatient (Routine) - Authorized Specialty Diagnoses / Procedures Referred By Contac t Referred To Contact Physical Therapy Diagnoses Strain of unspecified muscle, fascia and tendon at shoulder and upper arm level, right arm, initial encounter Procedures AK PHYSICAL THERAPY EVALUATION LOW COMPLEX 20 MINS [place] OFFICE/OUTPATIENT [facility] Leidy Fu MD [address] [place] [address] Phone: tel: fax: [facility] [address] [address] Phone: tel: fax: Referral ID Status Reason Start Date Expiration Date V isits Requested Visits Authorized [id number] Authorized 06/25/2024 08/30/2024 12 12 [facility] [...] of knee Chief Complaint 3 MONTHS [place] [facility] [place] Reason for Visit Bilateral primary os teoarthritis of knee Bilateral primary osteoarthritis of knee Chronic pain Knee pain, left Knee pain, right Chief Complaint Admit Date S46June 25, 2024 11:08am S46.1A July 04, 2024 2:30pm [email or web address] July 22, 2024 5: 28pm Chief Complaint Admit Date [id number] June 25, 2024 11:08am [id number] July 04, 2024 2:30pm [email or web address] July 22, 2024 5: 28pm [email or web address] July 26, 2024 2 :30pm Chief Complaint Admit Date S46.911A June 25, 2024 11:08am [email or web address] July 04, 2024 2:30pm [email or web address] July 22, 2024 5: 28pm [id number] July 26, 2024 2 :30pm [facility] DOI 06/24/24 RT SHOULDER INJ[place] [facility] [place] 08, 2024 9:47am Reason for Visit [...] 28pm [id number] July 26, 2024 2 :30pm [facility] DOI 06/24/24 RT SHOULDER INJUR[place] [facility] [place] 08, 2024 9:47am OP SP BILAT KNEE PAIN August 14, 2024 1:16pm Chief Complaint Admit Date [id number] June 25, 2024 11:08am [id number] July 04, 2024 2:30pm [email or web address] July 22, 2024 5: 28pm [id number] July 26, 2024 2 :30pm [facility] DOI 06/24/24 RT SHOULDER INJURY [place] [facility] [place] 08, 2024 9:47am OP SP BILAT [...] and content) DATE CREATED AUTHOR 01/09/2018 [facility] DATE CREATED AUTHOR AUTHOR'S ORGANIZ ATION 06/20/2021 [employer] DATE CREATED AUTHOR AUTHOR'S ORGANIZ ATION 09/13/2022 [facility] pital DATE CREATED AUTHOR AUTHOR'S ORGANIZ ATION 08/03/2024 [facility] DATE CREATED AUTHOR AUTHOR'S ORGANIZ ATION 02/28/2025 [facility] EPIC DATE CREATED AUTHOR AUTHOR'S ORGANIZ ATION 04/11/2025 [facility] REASON FOR VISIT (unrecogniz ed section [...] Care Teams (unrecognized sec tion and content) Customer Relations Coordinator Relationship Specialty Start Date End Date Spencer Mast MD [address] [place] [address] PCP - [employer] 10/15/20 Spencer Mast MD [address] [place] [address] PCP - [facility] Medicine 11/22/22 Customer Relations Coordinator Relationship Specialty Start Date End Date Spencer Mast MD [address] [place] [address] PCP - [employer] 10/15/20 Spencer Mast MD [address] [place] [address] PCP - [facility] Medicine 11/22/22 Team Status: Active Member Role [...] March 13, 2024 End: March 13, 2024 Customer Relations Coordinator Relationship Specialty Start Date End Date Spencer Mast MD [address] [facility] [address] [place] [address] PCP - General Family Medicine 11/22/22 Zoila Mosqueda, AVID EDITOR [address] [facility] [address] [place] [address] PCP - [employer] 03/17/24 Customer Relations Coordinator Relationship Specialty Start Date End Date Spencer Mast MD [address] [facility] [address] [place] [address] PCP - General Family Medicine 11/22/22 Zoila Mosqueda, AVID EDITOR [address] [facility] [address] [place] [address] PCP - [employer] 03/17/24 Customer Relations Coordinator Relationship Specialty Start Date End Date Spencer Mast MD [address] [facility] [address] [place] [address] PCP - General Family Medicine 11/22/22 Zoila Mosqueda, AVID EDITOR [address] [facility] [address] [place] [address] PCP - [employer] 03/17/24 Customer Relations Coordinator Relationship Specialty Start Date End Date Spencer Mast MD [address] [facility] [address] [place] [address] PCP - General Family Medicine 11/22/22 Zoila Mosqueda, AVID EDITOR [address] [place] [address] PCP - [employer] 03/17/24 Customer Relations Coordinator Relationship Specialty Start Date End Date Spencer Mast MD [address] [place] [address] PCP - General Family Medicine 11/22/22 Zoila Mosqueda, AVID EDITOR [address] [place] [address] PCP - [employer] 03/17/24 Customer Relations Coordinator Relationship Specialty Start Date End Date Spencer Mast MD [address] [place] [address] PCP - General Family Medicine 11/22/22 Zoila Mosqueda, AVID EDITOR [address] [place] [address] PCP - [employer] 03/17/24 Customer Relations Coordinator Relationship Specialty Start Date End Date Spencer Mast MD [address] [place] [address] PCP - General Family Medicine 11/22/22 Zoila Mosqueda, AVID EDITOR [address] [place] [address] PCP - [employer] 03/17/24 Customer Relations Coordinator Relationship Specialty Start Date End Date Spencer Mast MD [address] [place] [address] PCP - General Family Medicine 11/22/22 Zoila Mosqueda, AVID EDITOR [address] [place] [address] PCP - [employer] 03/17/24 Customer Relations Coordinator Relationship Specialty Start Date End Date Spencer Mast MD [address] [place] [address] PCP - General Family Medicine 11/22/22 Zoila Mosqueda, AVID EDITOR [address] [place] [address] PCP - [employer] 03/17/24 Customer Relations Coordinator Relationship Specialty Start Date End Date Spencer Mast MD [address] [place] [address] PCP - General Family Medicine 11/22/22 Zoila Mosqueda, AVID EDITOR [address] [place] [address] PCP - [employer] 03/17/24 Customer Relations Coordinator Relationship Specialty Start Date End Date Spencer Mast MD [address] [place] [address] PCP - General Family Medicine 11/22/22 Zoila Mosqueda, AVID EDITOR [address] [place] [address] PCP - [employer] 03/17/24 Team Status: Inactive Member Role [...] July 22, 2024 End: July 22, 2024 Customer Relations Coordinator Relationship Specialty Start Date End Date Spencer Mast MD [address] [place] [address] PCP - General Family Medicine 11/22/22 Zoila Mosqueda, AVID EDITOR [address] [place] [address] PCP - [employer] 03/17/24 Team Status: Inactive Member Role Status Dates Spencer Mast MD Primary Care Provider Active S tart: July 26, 2024 End: July 26, 2024 Leidy Bennett APRN Attending Provider Active Start: July 26, 2024 End: July 26, 2024 Customer Relations Coordinator Relationship Specialty Start Date End Date Spencer Mast MD [address] [place] [address] PCP - General Family Medicine 11/22/22 Zoila Mosqueda, AVID EDITOR [address] [place] [address] PCP - [employer] 03/17/24 Customer Relations Coordinator Relationship Specialty Start Date End Date Spencer Mast MD [address] [place] [address] PCP - General Family Medicine 11/22/22 Zoila Mosqueda, AVID EDITOR [address] [place] [address] PCP - [employer] 03/17/24 Customer Relations Coordinator Relationship Specialty Start Date End Date Spencer Mast MD [address] [place] [address] PCP - General Family Medicine 11/22/22 Zoila Mosqueda, AVID EDITOR [address] [place] [address] PCP - [employer] 03/17/24 Customer Relations Coordinator Relationship Specialty Start Date End Date Spencer Mast MD [address] [place] [address] PCP - General Family Medicine 11/22/22 Zoila Mosqueda, AVID EDITOR [address] [facility] [address] [place] [address] PCP - [employer] 03/17/24 Team Status: Inactive Member Role Status Dates Spencer Mast MD Primary Care Provider Active S tart: August 08, 2024 End: August 08, 2024 Mukesh Salinas MD Attending Provider Active Star t: August 08, 2024 End: August 08, 2024 Customer Relations Coordinator Relationship Specialty Start Date End Date Spencer Mast MD [address] [place] [address] PCP - General Family Medicine 11/22/22 Zoila Mosqueda, AVID EDITOR [address] [place] [address] PCP - [employer] 03/17/24 Customer Relations Coordinator Relationship Specialty Start Date End Date Spencer Mast MD [address] [facility] [address] [place] [address] PCP - General Family Medicine 11/22/22 Zoila Mosqueda, AVID EDITOR [address] [facility] [address] [place] [address] PCP - [employer] 03/17/24 Team Status: Inactive Member Role [...] September 12, 2024 End: September 12, 2024 Customer Relations Coordinator Relationship Specialty Start Date End Date Spencer Mast MD [address] [facility] [address] [place] [address] PCP - General Family Medicine 11/22/22 Zoila Mosqueda, AVID EDITOR [address] [facility] [address] [place] [address] PCP - [employer] 03/17/24 Customer Relations Coordinator Relationship Specialty Start Date End Date Spencer Mast MD [address] [facility] [address] [place] [address] PCP - General Family Medicine 11/22/22 Customer Relations Coordinator Relationship Specialty Start Date End Date Spencer Mast MD [address] [facility] [address] [place] [address] PCP - General Family Medicine 11/22/22 Customer Relations Coordinator Relationship Specialty Start Date End Date Spencer Mast MD [address] [facility] [address] [place] [address] PCP - General Family Medicine 11/22/22 Customer Relations Coordinator Relationship Specialty Start Date End Date Spencer Mast MD [address] [facility] [address] [place] [address] PCP - General Family Medicine 11/22/22 Customer Relations Coordinator Relationship Specialty Start Date End Date Spencer Mast MD [address] [facility] [address] [place] [address] PCP - General Family Medicine 11/22/22 Customer Relations Coordinator Relationship Specialty Start Date End Date Spencer Mast MD [address] [facility] [address] [place] [address] PCP - General Family Medicine 11/22/22 Team [...] 2025 Team Status: Inactive Member Role Status Watson Mast MD Primary Care Provider Active S tart: February 25, 2025 End: February 25, 2025 Sarah Anne MD Attending Provider Active Star t: February 25, 2025 End: February 25, 2025 Customer Relations Coordinator Relationship Specialty Start Date End Date Spencer Mast MD [address] [facility] [address] [place] [address] PCP - General Family Medicine 11/22/22 Customer Relations Coordinator Relationship Specialty Start Date End Date Spencer Mast MD [address] [facility] [address] [place] [address] PCP - General Family Medicine 11/22/22 Goals [...] BE BASED ON THE PRIMARY CLINICAL RECORDS. [facility] [email or web address] [facility] provides no warranty or guarantee of the accuracy or completeness of information in this document.
== END 2025-04-17 16:08 | disposition home or self-care (01) ==
PROVIDERS: PCP Family Medicine
DX: I48.19 Other persistent atrial fibrillation (principal)
CPT/HCPCS: 36415; 80048; 85025